=== PATIENT | male | born 1935 | race Caucasian/White ===

== ENCOUNTER 2017-07-30 11:52 | Inpatient (IN) | payer OTHER, MEDICARE ==
[~2017-07-30] VITALS: Ht 162.6 cm; Wt 84.3 kg
[2017-07-30] VITALS (7 sets, daily range): BP systolic 144–161; BP diastolic 59–70; PULSE 44–53; RESP 16–22; TEMP 94.8–96.3; O2SAT 99–100
[2017-07-30] MEDS ORDERED: ONDANSETRON HCL 4 MG/2 ML VIAL ONE (11:55)
[2017-07-30] MEDS ORDERED: PROPOFOL 1000 MG/100 ML INJ 100 ML ONE (12:04)
[2017-07-30 12:13] LABS: AUTOMATED NEUTROPHIL # 4.8 TH/MM3 (1.8-7.7); BASOPHIL % 0.3 % (0.0-2.0); EOSINOPHIL # 0.2 TH/MM3 (0-0.4); EOSINOPHIL % 2.5 % (0.0-4.0); HEMATOCRIT 23.9 % (39.0-51.0); HEMOGLOBIN 8.1 GM/DL (13.0-17.0); LYMPH % 21.1 % (9.0-44.0); LYMPHOCYTE # 1.5 TH/MM3 (1.0-4.8); MEAN CELL VOLUME 90.2 FL (80.0-100.0); MEAN CORPUSCULAR HEMOGLOBIN 30.5 PG (27.0-34.0); MEAN CORPUSCULAR HGB CONC 33.8 % (32.0-36.0); MEAN PLATELET VOLUME 8.8 FL (7.0-11.0); MONOCYTE # 0.6 TH/MM3 (0-0.9); NEUT % 68.1 % (16.0-70.0); PLATELET COUNT 131 TH/MM3 (150-450); RED BLOOD COUNT 2.65 MIL/MM3 (4.50-5.90); RED CELL DISTRIBUTION WIDTH 23.9 % (11.6-17.2)
--- NOTE | 2017-07-30 12:19 | RADRPT ---
EXAM DATE/TIME: 07/30/2017 11:53 [facility] COMPARISON: No previous studies available for comparison. INDICATIONS : Post intubation. Post fall. MEDICAL HISTORY : Unobtainable. SURGICAL HISTORY : Unobtainable. ENCOUNTER: Initial ACUITY: 1 day PAIN SCORE: Non-responsive. LOCATION: Bilateral chest FINDINGS: A single view of the chest demonstrates the endotracheal tube is in good position.. The cardiomedias tinal contours are unremarkable. Osseous structures are intact. CONCLUSION: ET tube in good position. Lungs are grossly clear. Polo Omer MD on July 30, 2017 at 12:17 Board Certified Radiologist. This report was verified electronically.
[2017-07-30 12:24] LABS: PROTHROMBIN TIME - PATIENT 10.1 SEC (9.8-11.6)
--- NOTE | 2017-07-30 12:33 | RADRPT ---
EXAM DATE/TIME: 07/30/2017 12:17 [facility] COMPARISON: No previous studies available for comparison. INDICATIONS : Trauma alert, patient fell off ladder, struck of head RADIATION DOSE: 57 CTDIvol (mGy) MEDICAL HISTORY : Non-responsive. SURGICAL HISTORY : Non-responsive. ENCOUNTER: Initial ACUITY: 1 day PAIN SCALE: Non-responsive LOCATION: Right cranial TECHNIQUE: Multiple contiguous axial images were obtained of the head. Using automated exposure control and adj ustment of the mA and/or kV according to patient size, radiation dose was kept as low as reasonably a chievable to obtain optimal diagnostic quality images. DICOM format image data is available electro nically for review and comparison. FINDINGS: CEREBRUM: There is a large left-sided extra-axial hemorrhagic collection presumably subdural. In the right mitchel etal region and measures up to 8 mm across. This is subarachnoid hemorrhage along both temporal tips. There is some hemorrhage along the tentorium on the right. At this point there is no obvious shift o f the third ventricle. Small amount of fracture or hemorrhage in the right temporal region POSTERIOR FOSSA: Small amount of hemorrhage anterior to the shanae . The cerebellum and brainstem are intact. The 4th ventricle is midline. The cerebellopontine angle is unremarkable. EXTRACRANIAL: The visualized portion of the orbits is intact. SKULL: The calvaria is intact. No evidence of skull fracture. CONCLUSION: Extra axial hemorrhage on the left beginning along the temporal tip extending over the high convexiti es of the parietal region where it measures up to 8 mm across. Subarachnoid hemorrhage both temporal tips. Small subdural on the right along the temporal region 3-4 mm across. Polo Omer MD on July 30, 2017 at 12:28 Board Certified Radiologist. This report was verified electronically.
--- NOTE | 2017-07-30 12:43 | RADRPT ---
EXAM DATE/TIME: 07/30/2017 12:17 [facility] COMPARISON: No previous studies available for comparison. INDICATIONS : Trauma alert, patient fell off ladder RADIATION DOSE: 23.01 CTDIvol (mGy) MEDICAL HISTORY : Non-responsive. SURGICAL HISTORY : Non-responsive. ENCOUNTER: Initial ACUITY: 1 day PAIN SCALE: Non-responsive LOCATION: neck TECHNIQUE: Volumetric scanning of the cervical spine was performed. Multiplanar reconstructions in the sagittal, coronal and oblique axial planes were performed. Using automated exposure control and adjustment o f the mA and/or kV according to patient size, radiation dose was kept as low as reasonably achievable to obtain optimal diagnostic quality images. DICOM format image data is available electronically f or review and comparison. FINDINGS: Patient intubated. Alignment anatomic. Degenerative changes are present at C1-C2 without fracture. C2-C3: Mild facet disease bilaterally worse on the right without fracture spinal stenosis. C3-C4: Uncinate ridging the bilateral neural foramina encroachment and mild spinal stenosis. C4-C5: Uncinate ridging with bilateral from encroachment worse on the right than the left. Spinal stenosis is mild C5-C6: Uncinate ridging and bilateral from encroachment worse on the right. Stenosis is mild. C6-C7: Balance the ridging. Neural foramen adequate. C7-T1: The bony spinal canal is normal in size. No evidence of disc bulge or herniation. The neural forami na are bilaterally patent. CONCLUSION: 1. Negative for fracture. 2. Degenerative changes consisting of uncinate ridging with neural foramen encroachment without radio graphically significant spinal stenosis. 3. Bilateral moderate sized pleural effusions seen on the lower slices through the upper lungs lungs. Angel Brown MD FACR on July 30, 2017 at 12:39 Board Certified Radiologist. This report was verified electronically.
--- NOTE | 2017-07-30 12:44 | HHI.HP ---
[facility] Service Critical Care Medicine Primary Care Physician Admission Diagnosis fall, altered mental status, head bleed, hypertensive emergency Diagnosis: Chief Complaint: Fall from ladder Travel History International Travel<30 Days: No Contact w/Intl Traveler <30 Da: No Traveled to Known Affected Are: No History of Present Illness This is an 82-year-old gentleman who fell backwards off of a ladder approximately 10 feet. He underwent a brief round of CPR but was found to be spontaneously breathing so it was stopped patient was brought in the trauma bay hypertensive and confused he was intubated in the trauma bay. He had unequal pupils and a coffee-ground emesis prior to intubation. He was upgraded to a level I trauma alert and full trauma workup showed a right subarachnoid hemorrhage as well as subdural hematoma. He was given 2 units of platelets that for his platelet insufficiency due to Plavix Review of Systems ROS Limitations: Intubated, Altered Mental Status Past Family Social History Allergies: Coded Allergies: No Allergy Information Available (Unverified , 07/30/17) Past Medical History Unobtainable due to the patient's condition Past Surgical History Unobtainable due to the patient's condition Reported Medications Patient has a list in his wallet which will be included in the medical reconciliation, this includes Plavix multiple cardiac medications as well as diuretics Family History Unobtainable due to the patient's condition Social History Unobtainable due to the patient's condition Physical Exam Physical Exam GENERAL: Intubated and sedated SKIN: Warm/dry. HEAD: Atraumatic. Normocephalic. EYES: Pupils unequal, right pupil 2 mm left pupil 3 mm reactive to light. Subconjunctival hemorrhage on the right side. No scleral icterus. No injection or drainage. ENT: No nasal bleeding or discharge. Mucous membranes pink and moist. NECK: Trachea midline. No JVD. CARDIOVASCULAR: Regular rate and rhythm. RESPIRATORY: Clear to auscultation. Breath sounds equal bilaterally. GASTROINTESTINAL: Abdomen soft, non-tender, nondistended. MUSCULOSKELETAL: No obvious deformities. No clubbing. No cyanosis. No edema. NEUROLOGICAL: GCS of 12. No focal neurologic deficits, cranial nerves II through XII appear grossly intact prior to intubation. I arrived after intubation, however. PSYCHIATRIC: Unable to assess. Laboratory Laboratory Tests Test 07/30/17 11:56 White Blood Count 7.0 Red Blood Count 2.65 Hemoglobin 8.1 Bedside Hemoglobin 7.5 Hematocrit 23.9 Bedside Hematocrit 22.0 Mean Corpuscular Volume 90.2 Mean Corpuscular Hemoglobin 30.5 Mean Corpuscular Hemoglobin Concent 33.8 Red Cell Distribution Width 23.9 Platelet Count 131 Mean Platelet Volume 8.8 Neutrophils (%) (Auto) 68.1 Lymphocytes (%) (Auto) 21.1 Monocytes (%) (Auto) 8.0 Eosinophils (%) (Auto) 2.5 Basophils (%) (Auto) 0.3 Neutrophils # (Auto) 4.8 Lymphocytes # (Auto) 1.5 Monocytes # (Auto) 0.6 Eosinophils # (Auto) 0.2 Basophils # (Auto) 0.0 CBC Comment AUTO DIFF Prothrombin Time 10.1 Prothromb Time International Ratio 1.0 Activated Partial Thromboplast Time 22.5 Bedside Sodium 146 Bedside Potassium 4.6 Bedside Chloride 113 Bedside Blood Urea Nitrogen 35 Bedside Creatinine 1.5 Bedside Glucose 148 Result Diagram: 07/30/17 1156 Caprini VTE Risk Assessment Caprini VTE Risk Assessment: Mod/High Risk (score >= 2) VTE Pharm Contraindication: Hemorrhage Caprini Risk Assessment Model Point Value = 1 Point Value = 2 Point Value = 3 Point Value = 5 Age 41-60 Minor surgery BMI > 25 kg/m2 Swollen legs Varicose veins or History of unexplained or recurrent spontaneous Oral contraceptives or hormone replacement Sepsis (< 1 month) Serious lung disease, including pneumonia (< 1 month) Abnormal pulmonary function Acute myocardial infarction Congestive heart failure (< 1 month) History of inflammatory bowel disease Medical patient at bed rest Age 61-74 Arthroscopic surgery Major open surgery (> 45 min) Laparoscopic surgery (> 45 min) Malignancy Confined to bed (> 72 hours) Immobilizing plaster cast Central venous access Age >= 75 History of VTE Family history of VTE Factor V Leiden Prothrombin [id number] Lupus anticoagulant Anticardiolipin antibodies Elevated serum homocysteine Heparin-induced thrombocytopenia Other congenital or acquired thrombophilia Stroke (< 1 month) Elective arthroplasty Hip, pelvis, or leg fracture Acute spinal cord injury (< 1 month) Prophylaxis Regimen Total Risk Factor Score Risk Level Prophylaxis Regimen 0-1 Low Early ambulation 2 Moderate Order ONE of the following: *Sequential Compression Device (SCD) *Heparin 5000 units SQ BID 3-4 Higher Order ONE of the following medications: *Heparin 5000 units SQ TID *Enoxaparin/Lovenox 40 mg SQ daily (WT < 150 kg, CrCl > 30 mL/min) *Enoxaparin/Lovenox 30 mg SQ daily (WT < 150 kg, CrCl > 10-29 mL/min) *Enoxaparin/Lovenox 30 mg SQ BID (WT < 150 kg, CrCl > 30 mL/min) AND/OR *Sequential Compression Device (SCD) 5 or more Highest Order ONE of the following medications: *Heparin 5000 units SQ TID (Preferred with Epidurals) *Enoxaparin/Lovenox 40 mg SQ daily (WT < 150 kg, CrCl > 30 mL/min) *Enoxaparin/Lovenox 30 mg SQ daily (WT < 150 kg, CrCl > 10-29 mL/min) *Enoxaparin/Lovenox 30 mg SQ BID (WT < 150 kg, CrCl > 30 mL/min) AND *Sequential Compression Device (SCD) Assessment and Plan Assessment and Plan Admit to trauma ICU for traumatic brain injury following a fall from height - Serial neuro exams - Neurosurgery consult - Transfuse 2 units platelets for dysfunction secondary to Plavix -Patient is at higher risk for aspiration pneumonitis and pneumonia due to emesis and likely aspiration in the trauma bay - Repeat head CT in AM, sooner if neurologic status deteriorates Patient remains critically ill with traumatic brain injury and respiratory failure Total critical care time in evaluation and management of this critically ill trauma activation was 75 minutes Reese Trinidad MD Jul 30, 2017 12:44
[2017-07-30] MEDS ORDERED: CHLORHEXIDINE GLUCONATE 2 % 1 PACK (2 CLOTHS) TOP PRN (12:45)
[2017-07-30] MEDS ORDERED: MISCELLANEOUS NURSING INFORMATION XX SCH (12:45)
[2017-07-30] MEDS ORDERED: ONDANSETRON HCL 4 MG/2 ML VIAL IV PUSH PRN (12:45)
[2017-07-30] MEDS ORDERED: MAGNESIUM HYDROXIDE SUSP 30 ML CUP PO PRN (12:45)
[2017-07-30] MEDS: PROPOFOL 1000 MG/100 ML IV PRN ×4 (12:45→23:34)
--- NOTE | 2017-07-30 12:47 | PD.CONS ---
[facility] Service Neurosurgery Consult Requested By Trauma surgeon Reason for Consult Trauma alert. Traumatic brain injury Primary Care Physician History of Present Illness This is an 82-year-old gentleman who fell backwards off of a ladder approximately 10 feet. He underwent a brief round of CPR but was found to be spontaneously breathing so it was stopped patient was brought in the trauma bay hypertensive and confused he was intubated in the trauma bay. No seizure activity reported. No tongue biting. No incontinence of stool or urine. No tonic-clonic movements. He had unequal pupils and a coffee-ground emesis prior to intubation. He was upgraded to a level I trauma alert. He was resuscitated according to the ATLS protocol and full trauma workup was carried down. He was found to have right subarachnoid hemorrhage as well as subdural hematoma. He was given 2 units of platelets that for his platelet insufficiency due to Plavix. He was moving his extremities. Neurosurgical consultation was requested Review of Systems Unknown and unobtainable due to the patient's condition Past Family Social History Allergies: Coded Allergies: No Allergy Information Available (Unverified , 07/30/17) Past Medical History Unknown and unobtainable due to the patient's condition Past Surgical History Unknown and unobtainable due to the patient's condition Reported Medications Unknown and unobtainable due to the patient's condition Active Ordered Medications Current Medications Ondansetron HCl (Zofran Inj) 4 mg STK-MED ONCE .ROUTE ; Start 07/30/17 at 11:55; Stop 07/30/17 at 11:56; Status DC Propofol 100 ml @ As Directed STK-MED ONCE .ROUTE ; Start 07/30/17 at 12:04; Stop 07/30/17 at 12:05; Status DC Nicardipine HCl (Cardene Inj) 25 mg STK-MED ONCE .ROUTE ; Start 07/30/17 at 12:08 ; Stop 07/30/17 at 12:09; Status DC Sodium Chloride 1,000 ml @ 125 mls/hr Q8H IV Last administered on 07/31/17at 05: 24; Start 07/30/17 at 12:31 Sodium Chloride (NS Flush) 2 ml UNSCH PRN IV FLUSH FLUSH AFTER USING IV ACCESS ; Start 07/30/17 at 12:45 Ondansetron HCl (Zofran Inj) 4 mg Q6H PRN IV PUSH NAUSEA OR VOMITING; Start 07/30/17 at 12:45 Multivitamins 10 ml/Thiamine HCl 100 mg/Folic Acid 1 mg/Sodium Chloride 511.2 ml @ 125 mls/hr Q24H IV Last administered on 07/31/17at 13:15; Start 07/30/17 at 15:00; Stop 08/01/17 at 19:06 Docusate Sodium (Colace) 100 mg BID PO Last administered on 07/31/17at 07:42; Start 07/30/17 at 21:00 Magnesium Hydroxide (Milk Of Magnesia Liq) 30 ml Q6H PRN PO CONSTIPATION; Start 07/30/17 at 12:45 Miscellaneous Information 1 [id number] XX ; Start 07/30/17 at 12:45 Chlorhexidine Gluconate (Chlorhexidine 2% Cloth) 3 pack Taper DAILY@04 TOP ; Start 07/31/17 at 04:00; Stop 07/27/18 at 03:59 Chlorhexidine Gluconate (Chlorhexidine 2% Cloth) 3 pack UNSCH PRN TOP HYGIENIC CARE; Start 07/30/17 at 12:45 Propofol 100 ml @ 0 mls/hr TITRATE PRN IV SEDATION; Start 07/30/17 at 13:00; Stop 07/30/17 at 13:30; Status DC Chlorhexidine Gluconate (Peridex 0.12% Liq) 15 ml BID@08,20 MT Last administered on 07/31/17at 07:43; Start 07/30/17 at 20:00 Propofol 100 ml @ 0 mls/hr TITRATE PRN IV SEDATION; Start 07/30/17 at 13:00; Stop 07/30/17 at 13:00; Status DC Fentanyl Citrate 250 ml TITRATE PRN IV SEDATION; Start 07/30/17 at 13:00; Stop 07/30/17 at 13:00; Status DC Fentanyl Citrate 250 ml TITRATE PRN IV SEDATION; Start 07/30/17 at 13:00; Stop 07/30/17 at 13:30; Status DC Albuterol/ Ipratropium (Duoneb Neb) 1 ampule Q6HR NEB NEB Last administered on 07/31/17at 08:53; Start 07/30/17 at 16:00 Diphtheria/ Tetanus/Acell Pertussis (Boostrix Inj) 0.5 ml STK-MED ONCE IM ; Start 07/30/17 at 12:58; Stop 07/30/17 at 12:59; Status DC Etomidate (Amidate Inj) 20 mg STK-MED ONCE .ROUTE ; Start 07/30/17 at 13:01; Stop 07/30/17 at 13:02; Status DC Succinylcholine Chloride (Quelicin Inj) 200 mg STK-MED ONCE .ROUTE ; Start at 13:01; Stop 07/30/17 at 13:02; Status DC Fentanyl Citrate 250 ml @ 5 mls/hr TITRATE PRN IV Sedation Last administered on 07/31/17at 12:23; Start 07/30/17 at 13:30 Propofol 100 ml @ 2.64 mls/hr TITRATE PRN IV SEDATION Last administered on 07/31at 14:23; Start 07/30/17 at 13:30 Famotidine (Pepcid) 10 mg BID PO Last administered on 07/31/17 07:42; Start 07/30/17 at 21:00 Nicardipine HCl 25 mg/Sodium Chloride 250 ml @ 50 mls/hr TITRATE PRN IV Blood pressure management Last administered on 07/31/17at 11:00; Start 07/30/17 at 16:15 Spironolactone (Aldactone) 25 mg DAILY PO Last administered on 07/31/17at 07:42; Start 07/31/17 at 09:00 Pravastatin Sodium (Pravachol) 40 mg DAILY PO Last administered on 07/31/17at 07: 42; Start 07/31/17 at 09:00 Metoprolol Tartrate (Lopressor) 25 mg Q12HR PO ; Start 07/31/17 at 09:00 Hydralazine HCl (Apresoline) 25 mg Q12HR PO Last administered on 07/31/17at 07:42 ; Start 07/31/17 at 09:00; Stop 07/31/17 at 09:00; Status DC Furosemide (Lasix Inj) 40 mg BID@,18 IV PUSH Last administered on 3/4/18at 07 :44; Start 07/31/17 at 09:00 Dextrose (D50w (Vial) Inj) 50 ml UNSCH PRN IV PUSH HYPOGLYCEMIA-SEE COMMENTS; Start 07/31/17 at 07:45 Glucagon (Glucagon Inj) 1 mg UNSCH PRN OTHER HYPOGLYCEMIA-SEE COMMENTS; Start 07/31/17 at 07:45 Insulin Aspart (NovoLOG SUPPLEMENTAL SCALE) 1 Q6H SQ ; Start 07/31/17 at 07:45 Sodium Chloride 250 ml @ 15 mls/hr ONCE ONCE IV Last administered on at 10:55; Start 07/31/17 at 08:15; Stop 08/01/17 at 00:54 Terazosin HCl (Hytrin) 10 mg HS PO ; Start 07/31/17 at 21:00 Hydralazine HCl (Apresoline) 100 mg Q12HR PO Last administered on 07/31/17at 09: 25; Start 07/31/17 at 09:00 Family History Unknown and unobtainable due to the patient's condition Social History Unknown and unobtainable due to the patient's condition Physical Exam Physical Exam The patient is intubated and sedated. Hematoma occiput. Withdraws to painful stimulii with all 4 extremities. Cranial Nerves: Pupils equal, round, reactive to light. Eyes appear conjugated. There was no nystagmus, no papilledema. Face musculature appeared symmetrical at rest. Face sensation, olfaction, visual moreno, and hearing cannot be adequately assessed due to his neurological condition. The patient has a corneal reflex. He has a gag reflex. The sternocleidomastoid and trapezius are symmetrical. Cervical Spine: His neck is soft, supple, without nuchal rigidity. Motor: His muscle tone and bulk are normal. He moves Withdrawing all 4 extremities symmetrically. Reflexes: Deep tendon reflexes are 1+ and symmetrical in the biceps, triceps, and brachioradialis, bilaterally, in the upper extremities. In the lower extremities, the patellar and ankles are 1+, bilaterally. There is a bilateral plantar flexion response. There is no clonus or other abnormal reflexes noted. Sensory: On examination there is response to painful stimuli, Withdrawing with both upper and lower extremities. Cerebellar: Examination cannot be adequately assessed due to the patient's neurological condition. CARDIOVASCULAR: Regular rate and rhythm. No obvious murmurs to auscultation. No chest tenderness to palpation. RESPIRATORY: No obvious rhonchi or wheezing. Clear to auscultation. Breath sounds equal bilaterally. GASTROINTESTINAL: Abdomen soft, non-tender, nondistended. BS normal. MUSCULOSKELETAL: Extremities without clubbing, cyanosis, or edema. No obvious deformities. Laboratory Laboratory Tests Test 07/30/17 11:56 White Blood Count 7.0 Red Blood Count 2.65 Hemoglobin 8.1 Bedside Hemoglobin 7.5 Hematocrit 23.9 Bedside Hematocrit 22.0 Mean Corpuscular Volume 90.2 Mean Corpuscular Hemoglobin 30.5 Mean Corpuscular Hemoglobin Concent 33.8 Red Cell Distribution Width 23.9 Platelet Count 131 Mean Platelet Volume 8.8 Neutrophils (%) (Auto) 68.1 Lymphocytes (%) (Auto) 21.1 Monocytes (%) (Auto) 8.0 Eosinophils (%) (Auto) 2.5 Basophils (%) (Auto) 0.3 Neutrophils # (Auto) 4.8 Lymphocytes # (Auto) 1.5 Monocytes # (Auto) 0.6 Eosinophils # (Auto) 0.2 Basophils # (Auto) 0.0 CBC Comment AUTO DIFF Prothrombin Time 10.1 Prothromb Time International Ratio 1.0 Activated Partial Thromboplast Time 22.5 Bedside Sodium 146 Bedside Potassium 4.6 Bedside Chloride 113 Bedside Blood Urea Nitrogen 35 Bedside Creatinine 1.5 Bedside Glucose 148 Result Diagram: 07/30/17 1156 Imaging Last [address] 07/30/17 1202 Signed Impressions: Service Date/Time: Sunday, July 30, 2017 12:17 - CONCLUSION: Extra axial hemorrhage on the left beginning along the temporal tip extending over the high convexities of the parietal region where it measures up to 8 mm across. Subarachnoid hemorrhage both temporal tips. Small subdural on the right along the temporal region 3-4 mm across. Polo Omer MD Chest X-Ray 07/30/17 1202 Signed Impressions: Service Date/Time: Sunday, July 30, 2017 11:53 - CONCLUSION: ET tube in good position. Lungs are grossly clear. Polo Omer MD Assessment and Plan Assessment and Plan Caprini Risk Assessment Model Point Value = 1 Point Value = 2 Point Value = 3 Point Value = 5 Age 41-60 Minor surgery BMI > 25 kg/m2 Swollen legs Varicose veins or History of unexplained or recurrent spontaneous Oral contraceptives or hormone replacement Sepsis (< 1 month) Serious lung disease, including pneumonia (< 1 month) Abnormal pulmonary function Acute myocardial infarction Congestive heart failure (< 1 month) History of inflammatory bowel disease Medical patient at bed rest Age 61-74 Arthroscopic surgery Major open surgery (> 45 min) Laparoscopic surgery (> 45 min) Malignancy Confined to bed (> 72 hours) Immobilizing plaster cast Central venous access Age >= 75 History of VTE Family history of VTE Factor V Leiden Prothrombin [id number] Lupus anticoagulant Anticardiolipin antibodies Elevated serum homocysteine Heparin-induced thrombocytopenia Other congenital or acquired thrombophilia Stroke (< 1 month) Elective arthroplasty Hip, pelvis, or leg fracture Acute spinal cord injury (< 1 month) Prophylaxis Regimen Total Risk Factor Score Risk Level Prophylaxis Regimen 0-1 Low Early ambulation 2 Moderate Order ONE of the following: *Sequential Compression Device (SCD) *Heparin 5000 units SQ BID 3-4 Higher Order ONE of the following medications: *Heparin 5000 units SQ TID *Enoxaparin/Lovenox 40 mg SQ daily (WT < 150 kg, CrCl > 30 mL/min) *Enoxaparin/Lovenox 30 mg SQ daily (WT < 150 kg, CrCl > 10-29 mL/min) *Enoxaparin/Lovenox 30 mg SQ BID (WT < 150 kg, CrCl > 30 mL/min) AND/OR *Sequential Compression Device (SCD) 5 or more Highest Order ONE of the following medications: *Heparin 5000 units SQ TID (Preferred with Epidurals) *Enoxaparin/Lovenox 40 mg SQ daily (WT < 150 kg, CrCl > 30 mL/min) *Enoxaparin/Lovenox 30 mg SQ daily (WT < 150 kg, CrCl > 10-29 mL/min) *Enoxaparin/Lovenox 30 mg SQ BID (WT < 150 kg, CrCl > 30 mL/min) AND *Sequential Compression Device (SCD) Attending Statement Head injury with subdural hematoma. traumatic brain injury. I reviewed his clinical and radiological studies Head CT 07/30/17 1202 Signed Impressions: Service Date/Time: Sunday, July 30, 2017 12:17 - CONCLUSION: Extra axial hemorrhage on the left beginning along the temporal tip extending over the high convexities of the parietal region where it measures up to 8 mm across. Subarachnoid hemorrhage both temporal tips. Small subdural on the right along the temporal region 3-4 mm across. Polo Omer MD Chest X-Ray 07/30/17 1202 Signed Impressions: Service Date/Time: Sunday, July 30, 2017 11:53 - CONCLUSION: ET tube in good position. Lungs are grossly clear. Polo Omer MD Neuro checks in a serial fashion. Placement of ICP monitor is indicated as recommended by the [employer]. We have discussed the details including the [id number] details of the surgical procedure, its indications, alternatives, risks, and potential complications. Risks and potential complications include, but are not limited to, infection, blood loss, CSF leak, partial or complete loss of sight in one or both eyes, paresis, paralysis, permanent pain or difficulty swallowing, loss of bowel or bladder function, complications from anesthesia, blood clot, stroke, myocardial infarction, or even . He is at risk of deterioration. If the hemorrhage gets significantly worse she may need to undergo a craniotomy with evacuation of the hematoma Pulmonary. FUll mechanical ventilation in Assist control mode of ventilation aggressive pulmonary toilette, nasotracheal suction, and breathing treatments with nebulizers. Daily PT and OT Renal. monitor closely urine output, BUN and creatinine Endocrine.Monitor serial Acu checks and SSI as needed in detail ID monitor for signs of infection Protonix for stress ulcer prophylaxis Gilbert hose and SCD's for DVT prophylaxis Further recommendations will be provided depending on the patient's clinical evaluation and follow up studies Les Horne MD Jul 30, 2017 12:47
[2017-07-30 12:51] LABS: KERATOCYTES OCC (NORMAL); OVALOCYTES 1+ (NORMAL); TEARDROP RBCS 1+ (NORMAL)
[2017-07-30 12:52] LABS: ACANTHOCYTES 1+ (NORMAL)
--- NOTE | 2017-07-30 12:52 | PD ---
HPI Chief Complaint: Trauma (Alert) Time Seen by Provider: 12:01 Travel History International Travel<30 days: No Contact w/Intl Traveler<30days: No Traveled to known affect area: No History of Present Illness HPI Patient was brought in as a trauma alert by ground. As per the paramedics patient is 86 years old male who was up on a ladder less than 10 feet high with his son when for unknown reason he fell backwards and hit his head. He was unconscious and his son thought that patient was not breathing and give him a CPR for about 10 seconds after which patient started to come around but confused. When EMS arrived patient was GCS of 13. Blood pressure was more than 200. On route patient continued to get worse and GCS was 12 as per EMS upon arrival. Blood pressure was 220 systolic. Patient is on Plavix as per the paramedics. Patient was in no condition to give any meaningful history. He kept saying that he was nauseous and wanted to vomit. Patient was brought in boarded and collared. Soon after arrival patient vomited coffee-ground emesis all over the place. Decision was made to intubate the patient immediately. [facility] Past Medical History Narrative Medical Unknown Allergies-Medications (Allergen,Severity, Reaction): Coded Allergies: No Allergy Information Available (Unverified , 07/30/17) Comments Unknown Reported Meds & Prescriptions Reported Meds & Active Scripts Active Reported Slow Iron ER (Ferrous Sulfate) 160 Mg Maria Fernanda Mg DAILY Hydralazine HCl 25 Mg Tablet 25 Mg PO BID Aldactone (Spironolactone) 25 Mg Tab 25 Mg PO DAILY Plavix (Clopidogrel Bisulfate) 75 Mg Tab 75 Mg PO DAILY Terazosin (Terazosin HCl) 10 Mg Cap 10 Mg PO HS Simvastatin 20 Mg Tab 20 Mg PO DAILY Primidone 50 Mg Tab 200 Mg PO BID Omeprazole 20 Mg Tab 20 Mg PO DAILY Allopurinol 100 Mg Tab 100 Mg PO BID Metoprolol Tartrate 50 Mg Tab 50 Mg PO BID Losartan (Losartan Potassium) 25 Mg Tab 25 Mg PO DAILY Glipizide 5 Mg Tab 5 Mg PO DAILY Take 30 minutes before a meal Furosemide 80 Mg Tab 80 Mg PO DAILY Finasteride 5 Mg Tab 5 Mg DAILY Do not crush. Aspirin 325 Mg Tab 325 Mg PO DAILY Narrative Medication Unknown Review of Systems ROS Limitations: Altered Mental Status Except as stated in HPI: all other systems reviewed are Neg Physical Exam Narrative GENERAL: Confused, altered mental status, boarded and collared, significant distress, anxious SKIN: Focused skin assessment warm/dry. HEAD: Atraumatic. Normocephalic. EYES: Pupils unequal, right pupil 2 mm left pupil 3 mm reactive to light. Patient has subconjunctival hemorrhage on the right side. No scleral icterus. No injection or drainage. ENT: No nasal bleeding or discharge. Mucous membranes pink and moist. NECK: Trachea midline. No JVD. CARDIOVASCULAR: Regular rate and rhythm. No murmur appreciated. RESPIRATORY: No accessory muscle use. Clear to auscultation. Breath sounds equal bilaterally. GASTROINTESTINAL: Abdomen soft, non-tender, nondistended. Hepatic and splenic margins not palpable. MUSCULOSKELETAL: No obvious deformities. No clubbing. No cyanosis. No edema. NEUROLOGICAL: GCS of 12. No obvious cranial nerve deficits. Motor grossly within normal limits. Normal speech. PSYCHIATRIC: Anxious. Data Data Last Documented VS Vital Signs Date Time Temp Pulse Resp B/P (MAP) Pulse Ox O2 Delivery O2 Flow Rate FiO2 07/30/17 12:15 100 100 Orders Orders Ondansetron Inj (Zofran Inj) (07/30/17 11:55) I-Stat Profile (07/30/17 12:02) Complete Blood Count With Diff (07/30/17 12:02) Prothrombin Time / Inr (Pt) (07/30/17 12:02) Act Partial Throm Time (Ptt) (07/30/17 12:02) Type And Screen (07/30/17 12:02) Chest, Single Ap (07/30/17 12:02) Ct Brain W/O Iv Contrast(Rout) (07/30/17 12:02) Ct Cerv Spine W/O Contrast (07/30/17 12:02) Iv Access Insert/Monitor (07/30/17 12:02) Ecg Monitoring (07/30/17 12:02) Oximetry (07/30/17 12:02) Oxygen Administration (07/30/17 12:02) Propofol 1000 Mg/100 Ml Inj (Diprivan 10 (07/30/17 12:04) Nicardipine Inj (Cardene Inj) (07/30/17 12:08) Labs Laboratory Tests Test 07/30/17 11:56 White Blood Count 7.0 TH/MM3 Red Blood Count 2.65 MIL/MM3 Hemoglobin 8.1 GM/DL Bedside Hemoglobin 7.5 G/DL Hematocrit 23.9 % Bedside Hematocrit 22.0 % Mean Corpuscular Volume 90.2 FL Mean Corpuscular Hemoglobin 30.5 PG Mean Corpuscular Hemoglobin Concent 33.8 % Red Cell Distribution Width 23.9 % Platelet Count 131 TH/MM3 Mean Platelet Volume 8.8 FL Neutrophils (%) (Auto) 68.1 % Lymphocytes (%) (Auto) 21.1 % Monocytes (%) (Auto) 8.0 % Eosinophils (%) (Auto) 2.5 % Basophils (%) (Auto) 0.3 % Neutrophils # (Auto) 4.8 TH/MM3 Lymphocytes # (Auto) 1.5 TH/MM3 Monocytes # (Auto) 0.6 TH/MM3 Eosinophils # (Auto) 0.2 TH/MM3 Basophils # (Auto) 0.0 TH/MM3 CBC Comment AUTO DIFF Differential Comment AUTO DIFF CONFIRMED Platelet Estimate LOW Platelet Morphology Comment NORMAL Tear Drop Cells 1+ Ovalocytes 1+ Acanthocytes 1+ Keratocytes OCC Prothrombin Time 10.1 SEC Prothromb Time International Ratio 1.0 RATIO Activated Partial Thromboplast Time 22.5 SEC Bedside Sodium 146 MMOL/L Bedside Potassium 4.6 MMOL/L Bedside Chloride 113 MMOL/L Bedside Blood Urea Nitrogen 35 MG/DL Bedside Creatinine 1.5 MG/DL Bedside Glucose 148 MG/DL [facility] Medical Screen Exam Complete: Yes Emergency Medical Condition: Yes Medical Record Reviewed: Yes Differential Diagnosis Intracranial bleed, skull fracture, cervical spine fracture Narrative Course 12:48 PM patient was intubated soon after arrival given his declining GCS, hypertension and possibility of intracranial bleed. He was given tetanus and intubated by me with RSI. Please refer to my procedure note. Overall patient tolerated it well. Chest x-ray was done that confirmed good tube position. Blood pressure continued to be above 200 and he was put on Cardene drip. Patient was taken emergently to CT. CT shows intracranial bleed as per the radiology report. Patient will be going to the ICU under the trauma surgeon. I put a call out for the neurosurgeon. Critical Care Narrative Aggregate critical care time was 30 minutes. Time to perform other separately billable procedures was not included in the critical care time. My time did not include minutes spent treating any other patients simultaneously or on activities that did not directly contribute to the patient's treatment. The services I provided to this patient were to treat and/or prevent clinically significant deterioration that could result in: Intracranial bleed, altered mental status, respiratory failure, hypertensive crisis, Susie davies I provided critical care services requiring my management, as noted below: Chart data review, documentation time, medication orders and management, vital sign assessments/reviewing monitor data, ordering and reviewing lab tests, ordering and interpreting/reviewing x-rays and diagnostic studies, care of the patient and discussion of the patient with the admitting physicians. Procedures Procedure Narrative After the risks and benefits were discussed the following procedure was performed: INTUBATION: The patient was put in optimal position for the procedure. Rapid sequence intubation was initiated by me using 100 milligrams of etomidate IV and 20 milligrams of succinylcholine IV. The patient was intubated with a 7.5 cuffed endotracheal tube. Tube placement was confirmed by visualization of the tube and balloon passing through the cords, capnometry and subsequent chest x-ray. Breath sounds were equal and well aerated bilaterally postintubation. No breath sounds over stomach. Patient tolerated procedure well. Physician Communication Dr. Trinidad Diagnosis Diagnosis: Primary Impression: Unresponsive Additional Impressions: Hypertensive emergency Intracranial bleed Respiratory failure Qualified Codes: J96.00 - Acute respiratory failure, unspecified whether with hypoxia or hypercapnia Admitting Physician Requests: Compa Cooley MD Jul 30, 2017 12:52
[2017-07-30] MEDS ORDERED: DIPHTH/TETANUS/ACEL PERTUSSIS (BOOSTER) 0.5 ML VIAL/PFS IM ONE (12:58)
[2017-07-30] MEDS: niCARdipine INJ 25 MG in SODIUM CHLOR 0.9% 250 ML INJ 240 ML IV PRN ×5 (13:00→23:27)
[2017-07-30] MEDS ORDERED: fentaNYL DRIP 250 ML IV PRN ×2 (13:00)
[2017-07-30] MEDS ORDERED: PROPOFOL 1000 MG/100 ML INJ 100 ML IV PRN ×2 (13:00)
[2017-07-30] MEDS ORDERED: ETOMIDATE 20 MG/10 ML VIAL ONE (13:01)
[2017-07-30] MEDS ORDERED: SUCCINYLCHOLINE CHLORIDE 200 MG/10 ML VIAL ONE (13:01)
[2017-07-30] MEDS: fentaNYL 2,500 MCG/NS 250 ML IV PRN (14:23)
[2017-07-30] MEDS: MULTIVITAMIN INJ 10 ML, THIAMINE INJ 100 MG, FOLIC ACID INJ 1 MG in SODIUM CHLORID 0.9%... IV SCH (15:44)
[2017-07-30] MEDS: RESP: ALBUTEROL 2.5 MG/IPRATROPIUM 0.5 MG NEB (SCH) NEB ×2 (15:59→20:27)
[2017-07-30] MEDS ORDERED: SIMV20TA PO (18:09)
[2017-07-30] MEDS ORDERED: METO50TA PO (18:09)
[2017-07-30] MEDS ORDERED: LOSA25TA PO (18:09)
[2017-07-30] MEDS ORDERED: PLAV75TA29 PO (18:09)
[2017-07-30] MEDS ORDERED: ALLO100T PO (18:09)
[2017-07-30] MEDS ORDERED: HYDR-3799 PO (18:09)
[2017-07-30] MEDS ORDERED: GLIP5TAB8 PO (18:09)
[2017-07-30] MEDS ORDERED: OMEP20TA93 PO (18:09)
[2017-07-30] MEDS ORDERED: SLOW160T10 (18:09)
[2017-07-30] MEDS ORDERED: TERA10CA3 PO (18:09)
[2017-07-30] MEDS ORDERED: SPIR25 PO (18:09)
[2017-07-30] MEDS ORDERED: FINA5TAB2 (18:09)
[2017-07-30] MEDS ORDERED: PRIM50TA5 PO (18:09)
[2017-07-30] MEDS ORDERED: ASPI-183 PO (18:09)
[2017-07-30] MEDS ORDERED: FURO80TA PO (18:09)
[2017-07-30] MEDS: SODIUM CHLOR 0.9% 1000 ML INJ 1,000 ML IV SCH ×2 (18:23→20:21)
[2017-07-30] MEDS: CHLORHEXIDINE 0.12% (ORAL KIT) 15 ML CUP MT SCH (20:00)
[2017-07-30] MEDS: FAMOTIDINE 20 MG TAB PO SCH (21:18)
[2017-07-30] MEDS: DOCUSATE SODIUM 100 MG CAP PO SCH (21:18)
[2017-07-31] VITALS (16 sets, daily range): BP systolic 119–144; BP diastolic 40–63; PULSE 50–66; RESP 12–24; TEMP 96.8–98.8; O2SAT 92–100
[2017-07-31] MEDS: PROPOFOL 1000 MG/100 ML IV PRN ×6 (01:05→23:18)
[2017-07-31] MEDS: niCARdipine INJ 25 MG in SODIUM CHLOR 0.9% 250 ML INJ 240 ML IV PRN ×8 (01:56→20:59)
[2017-07-31] MEDS: RESP: ALBUTEROL 2.5 MG/IPRATROPIUM 0.5 MG NEB (SCH) NEB ×4 (03:45→20:30)
[2017-07-31] MEDS: CHLORHEXIDINE GLUCONATE 2 % 1 PACK (2 CLOTHS) TOP SCH (04:00)
--- NOTE | 2017-07-31 05:10 | RADRPT ---
EXAM DATE/TIME: 07/31/2017 04:27 [facility] COMPARISON: CT BRAIN W/O CONTRAST, July 30, 2017, 12:17. INDICATIONS : Follow up hemorrhage. RADIATION DOSE: 69.16 CTDIvol (mGy) MEDICAL HISTORY : Cardiovascular disease. Hypertension. Diabetes mellitus type 2. SURGICAL HISTORY : None. ENCOUNTER: Subsequent ACUITY: 1 day PAIN SCALE: Non-responsive LOCATION: cranial TECHNIQUE: Multiple contiguous axial images were obtained of the head. Using automated exposure control and adj ustment of the mA and/or kV according to patient size, radiation dose was kept as low as reasonably a chievable to obtain optimal diagnostic quality images. DICOM format image data is available electro nically for review and comparison. FINDINGS: CEREBRUM: Subdural hematoma on the left side is increased in size slightly, now measuring 10 mm. This extends from low to high convexity and from frontal and occipital region. The hematoma adjacent to the left lateral petrous bone is similar in appearance. The right temporal tip hematoma has increased in size , now measuring 2.2 x 1.5 cm. Small right subdural hematoma is stable in size measuring up to 7 mm. Interval development of intraventricular blood layering in the occipital horns bilaterally. Stable a ppearance to the blood products along the tentorium. The intracranial monitoring probe is in place. The ventricles are symmetric in size. No evidence of midline shift. POSTERIOR FOSSA: The cerebellum and brainstem are intact. The 4th ventricle is midline. The cerebellopontine angle i s unremarkable. EXTRACRANIAL: The visualized portion of the orbits is intact. SKULL: Stable right scalp hematoma high convexity parietal region measuring up to 11 mm in thickness, unchan ged in size. The calvaria is intact. No evidence of skull fracture. CONCLUSION: 1. Interval increase in the size of the left subdural hematoma. Stable right subdural hematoma. 2. Increase in size of the right temporal tip hematoma. Stable size of the left temporal hematoma ad jacent to the Yogi ridge. 3. Interval development of intraventricular blood. ePpe Smalls MD on July 31, 2017 at 5:03 Board Certified Radiologist. This report was verified electronically.
[2017-07-31] MEDS: SODIUM CHLOR 0.9% 1000 ML INJ 1,000 ML IV SCH ×2 (05:24→20:31)
--- NOTE | 2017-07-31 05:30 | RADRPT ---
EXAM DATE/TIME: 07/31/2017 04:10 [facility] COMPARISON: CHEST SINGLE AP, July 30, 2017, 11:53. INDICATIONS : Follow up post trauma from falling off ladder. MEDICAL HISTORY : Unobtainable. SURGICAL HISTORY : Unobtainable. ENCOUNTER: Subsequent ACUITY: 2 days PAIN SCORE: Non-responsive. LOCATION: Bilateral chest FINDINGS: ET tube tip is well above the lorenzo. Gastric tube traverses the field of view. There are hazy opac ities in the mid and lower lungs bilaterally causing loss of delineation of both hemidiaphragms and w ith some air bronchograms seen in the left lower chest. There is partial loss of delineation of the left apical heart border. CONCLUSION: Prominent bilateral mid and lower lobe opacities suggesting a combination of consolidation and pleura l effusions. Pepe Smalls MD on July 31, 2017 at 5:28 Board Certified Radiologist. This report was verified electronically.
[2017-07-31 06:52] LABS: AUTOMATED NEUTROPHIL # 6.1 TH/MM3 (1.8-7.7); BASOPHIL % 0.3 % (0.0-2.0); EOSINOPHIL # 0.1 TH/MM3 (0-0.4); EOSINOPHIL % 1.3 % (0.0-4.0); LYMPH % 7.8 % (9.0-44.0); LYMPHOCYTE # 0.6 TH/MM3 (1.0-4.8); MEAN CELL VOLUME 90.5 FL (80.0-100.0); MEAN CORPUSCULAR HEMOGLOBIN 30.9 PG (27.0-34.0); MEAN CORPUSCULAR HGB CONC 34.1 % (32.0-36.0); MONO % 12.9 % (0.0-8.0); NEUT % 77.7 % (16.0-70.0); PLATELET COUNT 151 TH/MM3 (150-450); RED BLOOD COUNT 2.12 MIL/MM3 (4.50-5.90); RED CELL DISTRIBUTION WIDTH 24.4 % (11.6-17.2); WHITE BLOOD COUNT 7.8 TH/MM3 (4.0-11.0)
[2017-07-31 06:54] LABS: HEMOGLOBIN 6.5 GM/DL (13.0-17.0)
[2017-07-31 06:55] LABS: HEMATOCRIT 19.2 % (39.0-51.0)
[2017-07-31] MEDS: INSULIN ASPART SUPPLEMENTAL SCALE SQ SCH ×3 (07:00→19:11)
[2017-07-31 07:13] LABS: BICARBONATE 19.3 MEQ/L (21.0-32.0); CALCIUM 7.6 MG/DL (8.5-10.1)
--- NOTE | 2017-07-31 07:17 | PD.CONS ---
HPI Service Critical Care Medicine Seen 07/30/2017 Consult Requested By Trauma Service Reason for Consult Systolic Heart Failure, Pulmonary Edema Primary Care Physician Unknown History of Present Illness 82 y/o man fell from height and sustained closed head trauma including left subdural hematoma and bilateral temporal parenchymal bleedss in areas of contusion. Admission CXR is impressive for cardiomegaly and pulmonary edema. Home meds are not known at this time. Review of Systems ROS Unobtainable. Past Family Social History Allergies: Coded Allergies: No Allergy Information Available (Unverified , 07/30/17) Past Medical History Clearly in chronic poorly compensated systolic heart failure Allergies-Medications Allergies-Medications (Allergen,Severity, Reaction): Coded Allergies: No Allergy Information Available (Unverified , 07/30/17) Comments Unknown Narrative Medication Unknown ROS Review of Systems ROS Limitations: Altered Mental Status Except as stated in HPI: all other systems reviewed are Neg Physical Exam Vital Signs Vital Signs Date Time Temp Pulse Resp B/P (MAP) Pulse Ox O2 Delivery O2 Flow Rate FiO2 07/31/17 06:00 58 07/31/17 05:30 60 133/50 07/31/17 04:00 98.2 66 17 144/40 (74) 92 07/31/17 04:00 40 07/31/17 04:00 66 07/31/17 03:46 99 40 07/31/17 02:49 51 133/44 07/31/17 02:00 50 07/31/17 01:56 51 129/68 07/31/17 01:40 100 40 07/31/17 00:00 40 07/31/17 00:00 58 07/31/17 00:00 97.9 58 24 137/43 (74) 98 07/30/17 23:27 56 138/63 07/30/17 22:00 53 07/30/17 21:18 56 149/68 07/30/17 20:30 100 Mechanical Ventilator 40 07/30/17 20:30 96.1 52 22 144/59 (87) 100 07/30/17 20:30 52 07/30/17 20:30 40 07/30/17 20:27 100 40 07/30/17 19:21 49 128/60 07/30/17 18:46 51 135/63 07/30/17 17:45 54 142/55 3/3/18 17:30 55 152/55 07/30/17 17:15 55 153/66 07/30/17 17:00 47 152/63 07/30/17 16:45 48 164/73 07/30/17 16:31 44 137/65 07/30/17 16:00 44 07/30/17 16:00 100 40 07/30/17 16:00 94.8 44 16 148/67 (94) 100 07/30/17 15:45 44 157/69 07/30/17 15:30 48 154/67 07/30/17 15:15 49 151/70 07/30/17 13:45 49 131/63 07/30/17 13:15 52 141/64 07/30/17 13:00 96.3 47 22 161/70 (100) 100 07/30/17 13:00 100 AMBU 15.00 07/30/17 13:00 52 161/70 07/30/17 13:00 47 07/30/17 12:50 100 100 07/30/17 12:15 100 100 Physical Exam Gen: Intubated, unresponsive. Head: Hematoma occiput. Neck: Collar, orally intubated. Lungs: Diffuse crackles and scattered rhonchi. Heart: NL S1S2, soft systolic mur at apex. +JVD. Abdomen: Soft, large, no peritoneal irritation. Quiet. Extremities: 2+ pitting edema both legs and feet, well perfused. Neuro: Withdraws 4 limbs to stimulation. Pupils 2 mm, reactive. Breathes over vent. Cough, gag intact. Laboratory Laboratory Tests Test 07/30/17 11:56 07/30/17 14:38 07/30/17 21:46 07/30/17 23:35 White Blood Count 7.0 Red Blood Count 2.65 Hemoglobin 8.1 Bedside Hemoglobin 7.5 Hematocrit 23.9 Bedside Hematocrit 22.0 Mean Corpuscular Volume 90.2 Mean Corpuscular Hemoglobin 30.5 Mean Corpuscular Hemoglobin Concent 33.8 Red Cell Distribution Width 23.9 Platelet Count 131 Mean Platelet Volume 8.8 Neutrophils (%) (Auto) 68.1 Lymphocytes (%) (Auto) 21.1 Monocytes (%) (Auto) 8.0 Eosinophils (%) (Auto) 2.5 Basophils (%) (Auto) 0.3 Neutrophils # (Auto) 4.8 Lymphocytes # (Auto) 1.5 Monocytes # (Auto) 0.6 Eosinophils # (Auto) 0.2 Basophils # (Auto) 0.0 CBC Comment AUTO DIFF Differential Comment AUTO DIFF CONFIRMED Platelet Estimate LOW Platelet Morphology Comment NORMAL Tear Drop Cells 1+ Ovalocytes 1+ Acanthocytes 1+ Keratocytes OCC Prothrombin Time 10.1 Prothromb Time International Ratio 1.0 Activated Partial Thromboplast Time 22.5 Bedside Sodium 146 Bedside Potassium 4.6 Bedside Chloride 113 Bedside Blood Urea Nitrogen 35 Bedside Creatinine 1.5 Bedside Glucose 148 Blood Gas Puncture Site RT RADIAL Blood Gas Patient Temperature 98.6 Blood Gas HCO3 20 Blood Gas Base Excess -3.4 Blood Gas Oxygen Saturation 98 Arterial Blood pH 7.41 Arterial Blood Partial Pressure CO2 33 Arterial Blood Partial Pressure O2 253 Arterial Blood Oxygen Content 9.3 Arterial Blood Carboxyhemoglobin 1.4 Arterial Blood Methemoglobin 1.1 Blood Gas Hemoglobin 6.3 Oxygen Delivery Device VENTILATOR Blood Gas Ventilator Setting Blood Gas Inspired Oxygen 80 Platelet Function P2Y12 React Units 292 Nasal Screen MRSA (PCR) MRSA NOT DETECTED Test 07/31/17 06:00 07/31/17 06:30 Blood Gas Puncture Site ART LINE Blood Gas Patient Temperature 98.6 Blood Gas HCO3 18 Blood Gas Base Excess -6.3 Blood Gas Oxygen Saturation 89 Arterial Blood pH 7.40 Arterial Blood Partial Pressure CO2 29 Arterial Blood Partial Pressure O2 64 Arterial Blood Oxygen Content 7.5 Arterial Blood Carboxyhemoglobin 1.4 Arterial Blood Methemoglobin 1.3 Blood Gas Hemoglobin 5.9 Oxygen Delivery Device VENTILATOR Blood Gas Ventilator Setting PRVC/AC Blood Gas Inspired Oxygen 50 White Blood Count 7.8 Red Blood Count 2.12 Hemoglobin 6.5 Hematocrit 19.2 Mean Corpuscular Volume 90.5 Mean Corpuscular Hemoglobin 30.9 Mean Corpuscular Hemoglobin Concent 34.1 Red Cell Distribution Width 24.4 Platelet Count 151 Mean Platelet Volume 9.0 Neutrophils (%) (Auto) 77.7 Lymphocytes (%) (Auto) 7.8 Monocytes (%) (Auto) 12.9 Eosinophils (%) (Auto) 1.3 Basophils (%) (Auto) 0.3 Neutrophils # (Auto) 6.1 Lymphocytes # (Auto) 0.6 Monocytes # (Auto) 1.0 Eosinophils # (Auto) 0.1 Basophils # (Auto) 0.0 CBC Comment AUTO DIFF Result Diagram: 07/31/17 0630 Assessment and Plan Assessment and Plan Assessment: 1. TBI. 2. Left SDH. 3. Right temporal contusion/bleed. 4. Chronic systolic heart failure, decompensated 5. Hypertension. 6. Respiratory failure. Plan: 1. PRVC vent. 2. Lasix daily, bolus now.. 3. Add unloading agent - hydralazine may be best. 4. Hold MATTY-I for now until renal function sorts out. 5. Start low dose beta stacie. 6. Check BNP. 7. Cardiac ECHO. 8. Statin. 9. ICP monitor. Overall impression: Patient is critically ill from TBI and neurologically unstable. Care is complicated by decompensated heart failure and uncontrolled hypertension. I anticipate complications related to his cardiovascular disease irrespective of his evolving head injury. Critical care 40 mins aside from procedures. Serge Marcano MD Jul 31, 2017 07:17
[2017-07-31] MEDS: DOCUSATE SODIUM 100 MG CAP PO SCH ×2 (07:42→19:53)
[2017-07-31] MEDS: PRAVASTATIN SOD 40 MG TAB PO SCH (07:42)
[2017-07-31] MEDS: FAMOTIDINE 20 MG TAB PO SCH ×2 (07:42→19:53)
[2017-07-31] MEDS: SPIRONOLACTONE 25 MG TAB PO SCH (07:42)
[2017-07-31] MEDS: CHLORHEXIDINE 0.12% (ORAL KIT) 15 ML CUP MT SCH ×2 (07:43→20:00)
--- NOTE | 2017-07-31 07:43 | HHI.CCPN ---
Subjective Remarks/Hospital Course 82 y/o man fell from height and sustained closed head trauma including left subdural hematoma and bilateral temporal parenchymal bleeds in areas of contusion. Admission CXR is impressive for pulmonary venous congestion. Home meds are not known at this time. 07/31: Enlarging left subdural hemorrhage and enlarging parenchymal contusions/ bleeds undoubtedly exacerbated by Plavix and aspirin use. CXR demonstrates bilateral effusions but improved pulmonary venous congestion after diuretic yesterday. Unfortunately a worsening azotemia has developed indicating he may not tolerate diuresis well. Follow renal function closely. I would have predicted chronic systolic heart failure after observing his effusions and ankles but his cardiac ECHO reveals reasonable biventricular function, probably EF > 50%. This may all be primary renal disease considering his reduced GFR and chronic anemia. Objective Vital Signs Date Time Temp Pulse Resp B/P (MAP) Pulse Ox O2 Delivery O2 Flow Rate FiO2 07/31/17 06:00 58 07/31/17 05:30 133/50 07/31/17 04:15 100 100 07/31/17 04:00 98.2 17 07/30/17 20:30 Mechanical Ventilator 07/30/17 13:00 15.00 Intake and Output 07/31/17 07/31/17 08/01/17 08:00 16:00 00:00 Intake Total 1950 ml Output Total 350 ml Balance 1600 ml Result Diagram: 07/31/17 0630 07/31/17 0630 Other Results Laboratory Tests Test 07/30/17 14:38 07/31/17 06:00 Blood Gas Puncture Site RT RADIAL ART LINE Blood Gas Patient Temperature 98.6 98.6 Blood Gas HCO3 20 mmol/L (22-26) 18 mmol/L (22-26) Blood Gas Base Excess -3.4 mmol/L (-2-2) -6.3 mmol/L (-2-2) Blood Gas Oxygen Saturation 98 % (90-100) 89 % (90-100) Arterial Blood pH 7.41 (7.380-7.420) 7.40 (7.380-7.420) Arterial Blood Partial Pressure CO2 33 mmHg (38-42) 29 mmHg (38-42) Arterial Blood Partial Pressure O2 253 mmHg (61-120) 64 mmHg (61-120) Arterial Blood Oxygen Content 9.3 Vol % (12.0-20.0) 7.5 Vol % (12.0-20.0) Arterial Blood Carboxyhemoglobin 1.4 % (0-4) 1.4 % (0-4) Arterial Blood Methemoglobin 1.1 % (0-2) 1.3 % (0-2) Blood Gas Hemoglobin 6.3 G/DL (12.0-16.0) 5.9 G/DL (12.0-16.0) Oxygen Delivery Device VENTILATOR VENTILATOR Blood Gas Ventilator Setting PRVC/AC Blood Gas Inspired Oxygen 80 % 50 % Imaging CXR: Hi effusion, PVC. Objective Remarks Gen: Intubated, unresponsive. Head: Hematoma occiput, no change. Neck: Collar, orally intubated. Lungs: Scattered rhonchi. Good bilateral air entry. Heart: NL S1S2, soft systolic mur at apex. +JVD. Abdomen: Soft, large, no peritoneal irritation. Quiet. No guarding. Extremities: 2+ pitting edema both legs and feet, well perfused. Neuro: Withdraws 4 limbs to stimulation. Pupils 2 mm, reactive. Breathes over vent. Cough, gag intact. A/P Assessment and Plan Assessment: 1. TBI. 2. Left SDH, traumatic. 3. Right and left temporal lobe contusion/bleed. 4. Chronic systolic heart failure ? ECHO shows pretty good LV function however. 5. Hypertension. 6. Respiratory failure. 7. PRINCE. Plan: 1. PRVC vent. PEEP to 10. 2. Lasix daily. 3. Add unloading agent - hydralazine may be best with his bradycardia. 4. Hold MATTY-I for now until renal function sorts out. 5. Start low dose beta stacie. 6. Follow BNP. 7. Cardiac ECHO. 8. Statin. 9. ICP monitor. 10. Bronchodilators. Overall impression: Patient is critically ill from TBI and neurologically unstable. Care is complicated by uncontrolled hypertension and chronic renal dysfunction. I anticipate complications related to his evolving head injury. Left SDH is enlarged to a size which will probably need evacuation, though recent plavix use will promote reaccumulation. Critical care 42 mins aside from procedures. Serge Marcaon MD Jul 31, 2017 07:43
[2017-07-31] MEDS: FUROSEMIDE 40 MG/4 ML VIAL IV PUSH SCH ×2 (07:44→18:00)
[2017-07-31] MEDS ORDERED: GLUCAGON 1 MG/ML VIAL OTHER PRN (07:45)
[2017-07-31] MEDS ORDERED: DEXTROSE 50% IN WATER 50 ML VIAL(D50) IV PUSH PRN (07:45)
[2017-07-31 08:03] LABS: ACANTHOCYTES 1+ (NORMAL); KERATOCYTES OCC (NORMAL); OVALOCYTES 1+ (NORMAL); TEARDROP RBCS 1+ (NORMAL)
[2017-07-31] MEDS ORDERED: SODIUM CHLOR 0.9% 250 ML INJ 250 ML IV ONE (08:15)
[2017-07-31] MEDS: METOPROLOL TARTRATE 25 MG TAB PO SCH ×2 (09:00→19:52)
[2017-07-31] MEDS ORDERED: hydrALAZINE HCL 25 MG TAB PO SCH (09:00)
[2017-07-31] MEDS: hydrALAZINE HCL 100 MG TAB PO SCH ×2 (09:25→19:53)
--- NOTE | 2017-07-31 11:00 | HHI.CCPN ---
Subjective Brief History 82-year-old gentleman who fell backwards off of a ladder with brief loss of consciousness and brief round of CPR at the scene was brought in as a level II trauma alert intubated in the trauma bay and upgraded to level I. He was found to have subdural and subarachnoid hemorrhages and was given 2 units of platelets for platelet dysfunction secondary to Plavix use. 24 Hour Review/Hospital Course 07/[address] appears to be worse today with slight increase in the size of his bleeds Is currently on a Cardene drip to maintain systolic blood pressure less than 160 , his beta stacie has been held for a heart rate in the mid 50s Objective Vital Signs Date Time Temp Pulse Resp B/P (MAP) Pulse Ox O2 Delivery O2 Flow Rate FiO2 07/31/17 08:53 100 50 07/31/17 08:00 57 07/31/17 08:00 98.8 17 143/63 (89) 07/30/17 20:30 Mechanical Ventilator 07/30/17 13:00 15.00 Intake and Output 07/31/17 07/31/17 08/01/17 08:00 16:00 00:00 Intake Total 1950 ml 400 ml Output Total 350 ml Balance 1600 ml 400 ml Result Diagram: 07/31/17 0630 07/31/17 0630 Other Results Laboratory Tests Test 07/30/17 14:38 07/31/17 06:00 Blood Gas Puncture Site RT RADIAL ART LINE Blood Gas Patient Temperature 98.6 98.6 Blood Gas HCO3 20 mmol/L (22-26) 18 mmol/L (22-26) Blood Gas Base Excess -3.4 mmol/L (-2-2) -6.3 mmol/L (-2-2) Blood Gas Oxygen Saturation 98 % (90-100) 89 % (90-100) Arterial Blood pH 7.41 (7.380-7.420) 7.40 (7.380-7.420) Arterial Blood Partial Pressure CO2 33 mmHg (38-42) 29 mmHg (38-42) Arterial Blood Partial Pressure O2 253 mmHg (61-120) 64 mmHg (61-120) Arterial Blood Oxygen Content 9.3 Vol % (12.0-20.0) 7.5 Vol % (12.0-20.0) Arterial Blood Carboxyhemoglobin 1.4 % (0-4) 1.4 % (0-4) Arterial Blood Methemoglobin 1.1 % (0-2) 1.3 % (0-2) Blood Gas Hemoglobin 6.3 G/DL (12.0-16.0) 5.9 G/DL (12.0-16.0) Oxygen Delivery Device VENTILATOR VENTILATOR Blood Gas Ventilator Setting PRVC/AC Blood Gas Inspired Oxygen 80 % 50 % Imaging Last 24 hours Impressions Chest X-Ray 07/31/17 0600 Signed Impressions: Service Date/Time: Monday, July 31, 2017 04:10 - CONCLUSION: Prominent bilateral mid and lower lobe opacities suggesting a combination of consolidation and pleural effusions. Pepe Smalls MD Head CT 07/31/17 0000 Signed Impressions: Service Date/Time: Monday, July 31, 2017 04:27 - CONCLUSION: 1. Interval increase in the size of the left subdural hematoma. Stable right subdural hematoma. 2. Increase in size of the right temporal tip hematoma. Stable size of the left temporal hematoma adjacent to the Yogi ridge. 3. Interval development of intraventricular blood. Pepe Smalls MD Head CT 07/30/17 1202 Signed Impressions: Service Date/Time: Sunday, July 30, 2017 12:17 - CONCLUSION: Extra axial hemorrhage on the left beginning along the temporal tip extending over the high convexities of the parietal region where it measures up to 8 mm across. Subarachnoid hemorrhage both temporal tips. Small subdural on the right along the temporal region 3-4 mm across. Polo Omer MD Chest X-Ray 07/30/17 1202 Signed Impressions: Service Date/Time: Sunday, July 30, 2017 11:53 - CONCLUSION: ET tube in good position. Lungs are grossly clear. Polo Omer MD Cervical Spine CT 07/30/17 1202 Signed Impressions: Service Date/Time: Sunday, July 30, 2017 12:17 - CONCLUSION: 1. Negative for fracture. 2. Degenerative changes consisting of uncinate ridging with neural foramen encroachment without radiographically significant spinal stenosis. 3. Bilateral moderate sized pleural effusions seen on the lower slices through the upper lungs lungs. Angel Brown MD FACR Exam [employer] Intubated and sedated, he does localize to pain Hemodynamic/Cardiac Regular rate and rhythm, stable, mild bradycardia, hypertension controlled with Cardene Pulmonary/Respiratory Clear to auscultation bilaterally, diminished Abdomen/GI Nutrition Soft, nontender, nondistended Renal/I&O Minimal urine output, BUN and creatinine are elevated Hematologic Patient has chronic anemia, but is being transfused for hemoglobin of 6.5 Assessment and Plan Plan Subarachnoid and subdural hemorrhages following fall with a platelets dysfunction secondary to Plavix -Continue supportive care and monitoring per neurosurgery -Continue full ventilator support as tolerated, he has increasing oxygen requirements having gone up on the PEEP this morning -Transfuse 2 units of packed cells. Although the patient has chronic anemia his hemoglobin is 6.5 today and transfusion will assist with oxygenation as well as renal perfusion -Start tube feeds today for nutritional support -Patient has an elevated BUN/creatinine with marginal urine output, he is on a large amount of diuretics at home, consider nephrology consult if this does not improve Reese Trinidad MD Jul 31, 2017 11:00
--- NOTE | 2017-07-31 11:12 | EKG ---
Date Performed: 07/30/2017 Time Performed: 13:53:22 PTAGE: 89 years EKG: Atrial fibrillation with slow ventricular response. IV conduction defect Inferior T wave ch anges are nonspecific Abnormal ECG NO PREVIOUS TRACING DOCTOR: Polo Quinteros Interpretating Date/Time 07/31/2017 11:11:41
[2017-07-31] MEDS: fentaNYL 2,500 MCG/NS 250 ML IV PRN (12:23)
--- NOTE | 2017-07-31 12:23 | ECHRPT ---
Indication: Heart Failure CONCLUSIONS Mildly dilated left ventricle. Wall thickness is normal. The left ventricular systolic function is low normal with an estimated ejection fraction in the rang e of 50- 55%. Mitral annular calcification is present. Trace mitral valve regurgitation. There is estimated mild pulmonary hypertension present (40 mmHg). BP: / HR: Rhythm: MEASUREMENTS (Male / Female) Normal Values Technical Quality:Good 2D ECHO LV Diastolic Diameter PLAX 5.4 cm 4.2 - 5.9 / 3.9 - 5.3 cm LV Systolic Diameter PLAX 4.0 cm IVS Diastolic Thickness 0.6 cm 0.6 - 1.0 / 0.6 - 0.9 cm LVPW Diastolic Thickness 0.9 cm 0.6 - 1.0 / 0.6 - 0.9 cm LV Relative Wall Thickness 0.3 LA Systolic Diameter LX 4.2 cm 3.0 - 4.0 / 2.7 - 3.8 cm M-MODE Aortic Root Diameter MM 3.2 cm AV Cusp Separation MM 1.9 cm DOPPLER AV Peak Velocity 236.0 cm/s AV Peak Gradient 22.3 mmHg LVOT Peak Velocity 149.0 cm/s LVOT Peak Gradient 8.9 mmHg Mitral E Point Velocity 96.0 cm/s Mitral A Point Velocity 78.8 cm/s Mitral E to A Ratio 1.2 TR Peak Velocity 273.0 cm/s TR Peak Gradient 29.8 mmHg Right Atrial Pressure 10.0 mmHg Pulmonary Artery Systolic Pressu 39.8 mmHg Right Ventricular Systolic Press 39.8 mmHg FINDINGS LEFT VENTRICLE Mildly dilated left ventricle. Wall thickness is normal. The left ventricular systolic function is low normal with an estimated ejection fraction in the rang e of 50- 55%. RIGHT VENTRICLE Normal right ventricular size and systolic function. LEFT ATRIUM The left atrial size is normal. RIGHT ATRIUM The right atrial size is normal. ATRIAL SEPTUM Normal atrial septal thickness without atrial level shunting by limited color doppler interrogation. AORTA The aortic root and proximal ascending aorta are normal in size on limited imaging. MITRAL VALVE Mitral annular calcification is present. Trace mitral valve regurgitation. AORTIC VALVE Trileaflet aortic valve. No aortic valve stenosis or regurgitation. TRICUSPID VALVE There is estimated mild pulmonary hypertension present (40 mmHg). PULMONARY VALVE No pulmonary valve regurgitation or stenosis. VESSELS The inferior vena cava is normal in size. PERICARDIUM No pericardial effusion. Nathalie Tanner MD, FACC (Electronically Signed) Final Date:31 July 2017 12:22
[2017-07-31 12:41] LABS: HEMATOCRIT 22.9 % (39.0-51.0); HEMOGLOBIN 7.7 GM/DL (13.0-17.0)
[2017-07-31] MEDS: MULTIVITAMIN INJ 10 ML, THIAMINE INJ 100 MG, FOLIC ACID INJ 1 MG in SODIUM CHLORID 0.9%... IV SCH (13:15)
--- NOTE | 2017-07-31 14:59 | HHI.NSPN ---
Note Status Status: Progress Note Interval History Interval History This is an 82-year-old gentleman who fell backwards off of a ladder approximately 10 feet. He underwent a brief round of CPR but was found to be spontaneously breathing so it was stopped patient was brought in the trauma bay hypertensive and confused he was intubated in the trauma bay. No seizure activity reported. No tongue biting. No incontinence of stool or urine. No tonic-clonic movements. He had unequal pupils and a coffee-ground emesis prior to intubation. He was upgraded to a level I trauma alert. He was resuscitated according to the ATLS protocol and full trauma workup was carried down. He was found to have right subarachnoid hemorrhage as well as subdural hematoma. He was given 2 units of platelets that for his platelet insufficiency due to Plavix. He was moving his extremities. Neurosurgical consultation was requested 07/31/17. Remains intubated and sedated. ICP monitor in place. A follow-up CT of the brain was obtained Labs, Micro, & Vital Signs Results Date Time Temp Pulse Resp B/P (MAP) Pulse Ox O2 Delivery O2 Flow Rate FiO2 07/31/17 13:15 54 125/60 07/31/17 12:45 54 120/58 07/31/17 12:21 54 120/59 07/31/17 12:00 97.5 62 13 123/59 (80) 98 07/31/17 11:46 100 40 07/31/17 11:05 56 124/61 07/31/17 11:00 56 124/61 07/31/17 08:53 100 50 07/31/17 08:00 57 07/31/17 08:00 98.8 57 17 143/63 (89) 95 07/31/17 08:00 55 07/31/17 07:43 57 132/62 07/31/17 06:00 58 07/31/17 05:30 60 133/50 07/31/17 04:15 100 100 07/31/17 04:00 98.2 66 17 144/40 (74) 92 07/31/17 04:00 40 07/31/17 04:00 66 07/31/17 03:46 99 40 07/31/17 02:49 51 133/44 07/31/17 02:00 50 07/31/17 01:56 51 129/68 07/31/17 01:40 100 40 07/31/17 00:00 40 07/31/17 00:00 58 07/31/17 00:00 97.9 58 24 137/43 (74) 98 07/30/17 23:27 56 138/63 07/30/17 22:00 53 07/30/17 21:18 56 149/68 07/30/17 20:30 100 Mechanical Ventilator 40 07/30/17 20:30 96.1 52 22 144/59 (87) 100 07/30/17 20:30 52 07/30/17 20:30 40 07/30/17 20:27 99 50 07/30/17 20:27 100 40 07/30/17 19:21 49 128/60 07/30/17 18:46 51 135/63 07/30/17 17:45 54 142/55 07/30/17 17:30 55 152/55 07/30/17 17:15 55 153/66 07/30/17 17:00 47 152/63 07/30/17 16:45 48 164/73 07/30/17 16:31 44 137/65 07/30/17 16:00 44 07/30/17 16:00 100 40 07/30/17 16:00 94.8 44 16 148/67 (94) 100 07/30/17 15:45 44 157/69 07/30/17 15:30 48 154/67 07/30/17 15:15 49 151/70 08/01/17 07:00 Intake Total 2250 ml Balance 2250 ml Constitutional Vital Signs Date Time Temp Pulse Resp B/P (MAP) Pulse Ox O2 Delivery O2 Flow Rate FiO2 07/31/17 13:15 54 125/60 07/31/17 12:45 54 120/58 07/31/17 12:21 54 120/59 07/31/17 12:00 97.5 62 13 123/59 (80) 98 07/31/17 11:46 100 40 07/31/17 11:05 56 124/61 07/31/17 11:00 56 124/61 3/4/18 08:53 100 50 18 08:00 57 318 08:00 98.8 57 17 143/63 (89) 95 18 08:00 55 18 07:43 57 132/62 18 06:00 58 18 05:30 60 133/50 18 04:15 100 100 07/31/17 04:00 98.2 66 17 144/40 (74) 92 07/31/17 04:00 40 07/31/17 04:00 66 18 03:46 99 40 07/31/17 02:49 51 133/44 07/31/17 02:00 50 07/31/17 01:56 51 129/68 07/31/17 01:40 100 40 07/31/17 00:00 40 07/31/17 00:00 58 07/31/17 00:00 97.9 58 24 137/43 (74) 98 07/30/17 23:27 56 138/63 07/30/17 22:00 53 07/30/17 21:18 56 149/68 07/30/17 20:30 100 Mechanical Ventilator 40 07/30/17 20:30 96.1 52 22 144/59 (87) 100 07/30/17 20:30 52 07/30/17 20:30 40 07/30/17 20:27 99 50 18 20:27 100 40 07/30/17 19:21 49 128/60 07/30/17 18:46 51 135/63 07/30/17 17:45 54 142/55 07/30/17 17:30 55 152/55 07/30/17 17:15 55 153/66 07/30/17 17:00 47 152/63 07/30/17 16:45 48 164/73 07/30/17 16:31 44 137/65 07/30/17 16:00 44 07/30/17 16:00 100 40 07/30/17 16:00 94.8 44 16 148/67 (94) 100 07/30/17 15:45 44 157/69 07/30/17 15:30 48 154/67 07/30/17 15:15 49 151/70 08/01/17 07:00 Intake Total 2250 ml Balance 2250 ml Physical Exam Mr Alonzo is intubated and sedated. Hematoma occiput. Withdraws to painful stimulii with all 4 extremities. Cranial Nerves: Pupils equal, round, reactive to light. Eyes appear conjugated. There was no nystagmus, no papilledema. Face musculature appeared symmetrical at rest. Face sensation, olfaction, visual moreno, and hearing cannot be adequately assessed due to his neurological condition. The patient has a corneal reflex. He has a gag reflex. The sternocleidomastoid and trapezius are symmetrical. Cervical Spine: His neck is soft, supple, without nuchal rigidity. Motor: His muscle tone and bulk are normal. He moves Withdrawing all 4 extremities symmetrically. Reflexes: Deep tendon reflexes are 1+ and symmetrical in the biceps, triceps, and brachioradialis, bilaterally, in the upper extremities. In the lower extremities, the patellar and ankles are 1+, bilaterally. There is a bilateral plantar flexion response. There is no clonus or other abnormal reflexes noted. Sensory: On examination there is response to painful stimuli, Withdrawing with both upper and lower extremities. Cerebellar: Examination cannot be adequately assessed due to the patient's neurological condition. CARDIOVASCULAR: Regular rate and rhythm. No obvious murmurs to auscultation. No chest tenderness to palpation. RESPIRATORY: No obvious rhonchi or wheezing. Clear to auscultation. Breath sounds equal bilaterally. GASTROINTESTINAL: Abdomen soft, non-tender, nondistended. BS normal. MUSCULOSKELETAL: Extremities without clubbing, cyanosis, or edema. No obvious deformities. Medications Current Medications Current Medications Ondansetron HCl (Zofran Inj) 4 mg STK-MED ONCE .ROUTE ; Start 07/30/17 at 11:55; Stop 07/30/17 at 11:56; Status DC Propofol 100 ml @ As Directed STK-MED ONCE .ROUTE ; Start 07/30/17 at 12:04; Stop 07/30/17 at 12:05; Status DC Nicardipine HCl (Cardene Inj) 25 mg STK-MED ONCE .ROUTE ; Start 07/30/17 at 12:08 ; Stop 07/30/17 at 12:09; Status DC Sodium Chloride 1,000 ml @ 125 mls/hr Q8H IV Last administered on 07/31/17at 05: 24; Start 07/30/17 at 12:31 Sodium Chloride (NS Flush) 2 ml UNSCH PRN IV FLUSH FLUSH AFTER USING IV ACCESS ; Start 07/30/17 at 12:45 Ondansetron HCl (Zofran Inj) 4 mg Q6H PRN IV PUSH NAUSEA OR VOMITING; Start 07/30/17 at 12:45 Multivitamins 10 ml/Thiamine HCl 100 mg/Folic Acid 1 mg/Sodium Chloride 511.2 ml @ 125 mls/hr Q24H IV Last administered on 07/31/17at 13:15; Start 07/30/17 at 15:00; Stop 08/01/17 at 19:06 Docusate Sodium (Colace) 100 mg BID PO Last administered on 07/31/17at 07:42; Start 07/30/17 at 21:00 Magnesium Hydroxide (Milk Of Magnesia Liq) 30 ml Q6H PRN PO CONSTIPATION; Start 07/30/17 at 12:45 Miscellaneous Information 1 [id number] XX ; Start 07/30/17 at 12:45 Chlorhexidine Gluconate (Chlorhexidine 2% Cloth) 3 pack Taper DAILY@04 TOP ; Start 07/31/17 at 04:00; Stop 07/27/18 at 03:59 Chlorhexidine Gluconate (Chlorhexidine 2% Cloth) 3 pack UNSCH PRN TOP HYGIENIC CARE; Start 07/30/17 at 12:45 Propofol 100 ml @ 0 mls/hr TITRATE PRN IV SEDATION; Start 07/30/17 at 13:00; Stop 07/30/17 at 13:30; Status DC Chlorhexidine Gluconate (Peridex 0.12% Liq) 15 ml BID@08,20 MT Last administered on 07/31/17at 07:43; Start 07/30/17 at 20:00 Propofol 100 ml @ 0 mls/hr TITRATE PRN IV SEDATION; Start 07/30/17 at 13:00; Stop 07/30/17 at 13:00; Status DC Fentanyl Citrate 250 ml TITRATE PRN IV SEDATION; Start 07/30/17 at 13:00; Stop 07/30/17 at 13:00; Status DC Fentanyl Citrate 250 ml TITRATE PRN IV SEDATION; Start 07/30/17 at 13:00; Stop 07/30/17 at 13:30; Status DC Albuterol/ Ipratropium (Duoneb Neb) 1 ampule Q6HR NEB NEB Last administered on 07/31/17at 08:53; Start 07/30/17 at 16:00 Diphtheria/ Tetanus/Acell Pertussis (Boostrix Inj) 0.5 ml STK-MED ONCE IM ; Start 07/30/17 at 12:58; Stop 07/30/17 at 12:59; Status DC Etomidate (Amidate Inj) 20 mg STK-MED ONCE .ROUTE ; Start 07/30/17 at 13:01; Stop 07/30/17 at 13:02; Status DC Succinylcholine Chloride (Quelicin Inj) 200 mg STK-MED ONCE .ROUTE ; Start at 13:01; Stop 07/30/17 at 13:02; Status DC Fentanyl Citrate 250 ml @ 5 mls/hr TITRATE PRN IV Sedation Last administered on 07/31/17at 12:23; Start 07/30/17 at 13:30 Propofol 100 ml @ 2.64 mls/hr TITRATE PRN IV SEDATION Last administered on 07/31at 14:23; Start 07/30/17 at 13:30 Famotidine (Pepcid) 10 mg BID PO Last administered on 07/31/17at 07:42; Start 07/30/17 at 21:00 Nicardipine HCl 25 mg/Sodium Chloride 250 ml @ 50 mls/hr TITRATE PRN IV Blood pressure management Last administered on 07/31/17at 11:00; Start 07/30/17 at 16:15 Spironolactone (Aldactone) 25 mg DAILY PO Last administered on 07/31/17at 07:42; Start 07/31/17 at 09:00 Pravastatin Sodium (Pravachol) 40 mg DAILY PO Last administered on 07/31/17at 07: 42; Start 07/31/17 at 09:00 Metoprolol Tartrate (Lopressor) 25 mg Q12HR PO ; Start 07/31/17 at 09:00 Hydralazine HCl (Apresoline) 25 mg Q12HR PO Last administered on 07/31/17at 07:42 ; Start 07/31/17 at 09:00; Stop 07/31/17 at 09:00; Status DC Furosemide (Lasix Inj) 40 mg BID@09,18 IV PUSH Last administered on 07/31/17at 07 :44; Start 07/31/17 at 09:00 Dextrose (D50w (Vial) Inj) 50 ml UNSCH PRN IV PUSH HYPOGLYCEMIA-SEE COMMENTS; Start 07/31/17 at 07:45 Glucagon (Glucagon Inj) 1 mg UNSCH PRN OTHER HYPOGLYCEMIA-SEE COMMENTS; Start 07/31/17 at 07:45 Insulin Aspart (NovoLOG SUPPLEMENTAL SCALE) 1 Q6H SQ ; Start 07/31/17 at 07:45 Sodium Chloride 250 ml @ 15 mls/hr ONCE ONCE IV Last administered on at 10:55; Start 07/31/17 at 08:15; Stop 08/01/17 at 00:54 Terazosin HCl (Hytrin) 10 mg HS PO ; Start 07/31/17 at 21:00 Hydralazine HCl (Apresoline) 100 mg Q12HR PO Last administered on 07/31/17at 09: 25; Start 07/31/17 at 09:00 Medical Decision Making MDM Remarks Armando Risk Assessment Model Point Value = 1 Point Value = 2 Point Value = 3 Point Value = 5 Age 41-60 Minor surgery BMI > 25 kg/m2 Swollen legs Varicose veins or History of unexplained or recurrent spontaneous Oral contraceptives or hormone replacement Sepsis (< 1 month) Serious lung disease, including pneumonia (< 1 month) Abnormal pulmonary function Acute myocardial infarction Congestive heart failure (< 1 month) History of inflammatory bowel disease Medical patient at bed rest Age 61-74 Arthroscopic surgery Major open surgery (> 45 min) Laparoscopic surgery (> 45 min) Malignancy Confined to bed (> 72 hours) Immobilizing plaster cast Central venous access Age >= 75 History of VTE Family history of VTE Factor V Leiden Prothrombin [id number] Lupus anticoagulant Anticardiolipin antibodies Elevated serum homocysteine Heparin-induced thrombocytopenia Other congenital or acquired thrombophilia Stroke (< 1 month) Elective arthroplasty Hip, pelvis, or leg fracture Acute spinal cord injury (< 1 month) Prophylaxis Regimen Total Risk Factor Score Risk Level Prophylaxis Regimen 0-1 Low Early ambulation 2 Moderate Order ONE of the following: *Sequential Compression Device (SCD) *Heparin 5000 units SQ BID 3-4 Higher Order ONE of the following medications: *Heparin 5000 units SQ TID *Enoxaparin/Lovenox 40 mg SQ daily (WT < 150 kg, CrCl > 30 mL/min) *Enoxaparin/Lovenox 30 mg SQ daily (WT < 150 kg, CrCl > 10-29 mL/min) *Enoxaparin/Lovenox 30 mg SQ BID (WT < 150 kg, CrCl > 30 mL/min) AND/OR *Sequential Compression Device (SCD) 5 or more Highest Order ONE of the following medications: *Heparin 5000 units SQ TID (Preferred with Epidurals) *Enoxaparin/Lovenox 40 mg SQ daily (WT < 150 kg, CrCl > 30 mL/min) *Enoxaparin/Lovenox 30 mg SQ daily (WT < 150 kg, CrCl > 10-29 mL/min) *Enoxaparin/Lovenox 30 mg SQ BID (WT < 150 kg, CrCl > 30 mL/min) AND *Sequential Compression Device (SCD) Attending Statement I reviewed his follow-up radiological studies Last 48 hours Impressions Chest X-Ray 07/31/17 0600 Signed Impressions: Service Date/Time: Monday, July 31, 2017 04:10 - CONCLUSION: Prominent bilateral mid and lower lobe opacities suggesting a combination of consolidation and pleural effusions. Pepe Smalls MD Head CT 07/31/17 0000 Signed Impressions: Service Date/Time: Monday, July 31, 2017 04:27 - CONCLUSION: 1. Interval increase in the size of the left subdural hematoma. Stable right subdural hematoma. 2. Increase in size of the right temporal tip hematoma. Stable size of the left temporal hematoma adjacent to the Yogi ridge. 3. Interval development of intraventricular blood. Pepe Smalls MD Head CT 07/30/17 1202 Signed Impressions: Service Date/Time: Sunday, July 30, 2017 12:17 - CONCLUSION: Extra axial hemorrhage on the left beginning along the temporal tip extending over the high convexities of the parietal region where it measures up to 8 mm across. Subarachnoid hemorrhage both temporal tips. Small subdural on the right along the temporal region 3-4 mm across. Polo Omer MD Chest X-Ray 07/30/17 1202 Signed Impressions: Service Date/Time: Sunday, July 30, 2017 11:53 - CONCLUSION: ET tube in good position. Lungs are grossly clear. Polo Omer MD Cervical Spine CT 07/30/17 1202 Signed Impressions: Service Date/Time: Sunday, July 30, 2017 12:17 - CONCLUSION: 1. Negative for fracture. 2. Degenerative changes consisting of uncinate ridging with neural foramen encroachment without radiographically significant spinal stenosis. 3. Bilateral moderate sized pleural effusions seen on the lower slices through the upper lungs lungs. Angel Brown MD FACR His left sided subdural hematoma looks worse. He is at risk fir clinical deterioration. If further increase in the size of the hemorrhage he may need to undergo a craniotomy with evacuation of the hematoma Pulmonary. Continue full mechanical ventilation in Assist control mode of ventilation aggressive pulmonary toilette, nasotracheal suction, and breathing treatments with nebulizers. Daily PT and OT Renal. monitor closely urine output, BUN and creatinine Endocrine.Monitor serial Acu checks and SSI as needed in detail ID monitor for signs of infection Protonix for stress ulcer prophylaxis Gilbert hose and SCD's for DVT prophylaxis Further recommendations will be provided depending on the patient's clinical evaluation and follow up studies Les Horne MD Jul 31, 2017 14:59
--- NOTE | 2017-07-31 15:12 | RADRPT ---
EXAM DATE/TIME: 07/31/2017 14:25 [facility] COMPARISON: No previous studies available for comparison. INDICATIONS : Fell on right side. MEDICAL HISTORY : None. SURGICAL HISTORY : None. ENCOUNTER: Initial ACUITY: 1 day PAIN SCORE: Non-responsive. LOCATION: Right shoulder. FINDINGS: High riding humeral head is noted and characteristic of rotator cuff tear. There is osteophyte format ion of the humeral head and mild hypertrophic changes of the acromioclavicular joint, moderate glenoh umeral joint narrowing. CONCLUSION: No obvious fracture or dislocation. Degenerative changes. Prasanna Milan MD on July 31, 2017 at 15:09 Board Certified Radiologist. This report was verified electronically.
[2017-07-31] MEDS: TERAZOSIN HCL 5 MG CAP PO SCH (19:52)
[2017-08-01] VITALS (19 sets, daily range): BP systolic 125–148; BP diastolic 57–68; PULSE 51–66; RESP 12–20; TEMP 96.1–99.5; O2SAT 92–100
[2017-08-01] MEDS: SODIUM CHLOR 0.9% 1000 ML INJ 1,000 ML IV SCH ×2 (00:24→08:45)
[2017-08-01] MEDS: INSULIN ASPART SUPPLEMENTAL SCALE SQ SCH ×4 (01:45→18:00)
[2017-08-01] MEDS: PROPOFOL 1000 MG/100 ML IV PRN ×6 (03:24→21:33)
[2017-08-01] MEDS: RESP: ALBUTEROL 2.5 MG/IPRATROPIUM 0.5 MG NEB (SCH) NEB ×4 (03:26→20:21)
[2017-08-01] MEDS: CHLORHEXIDINE GLUCONATE 2 % 1 PACK (2 CLOTHS) TOP SCH (04:00)
[2017-08-01 05:07] LABS: AUTOMATED NEUTROPHIL # 6.2 TH/MM3 (1.8-7.7); BASOPHIL % 0.3 % (0.0-2.0); EOSINOPHIL # 0.1 TH/MM3 (0-0.4); EOSINOPHIL % 1.6 % (0.0-4.0); HEMATOCRIT 23.2 % (39.0-51.0); HEMOGLOBIN 7.8 GM/DL (13.0-17.0); LYMPH % 10.8 % (9.0-44.0); LYMPHOCYTE # 0.9 TH/MM3 (1.0-4.8); MEAN CELL VOLUME 86.2 FL (80.0-100.0); MEAN CORPUSCULAR HGB CONC 33.6 % (32.0-36.0); MEAN PLATELET VOLUME 9.1 FL (7.0-11.0); MONO % 14.1 % (0.0-8.0); MONOCYTE # 1.2 TH/MM3 (0-0.9); NEUT % 73.2 % (16.0-70.0); PLATELET COUNT 123 TH/MM3 (150-450); RED CELL DISTRIBUTION WIDTH 26.4 % (11.6-17.2); WHITE BLOOD COUNT 8.4 TH/MM3 (4.0-11.0)
[2017-08-01 05:45] LABS: ALBUMIN 2.5 GM/DL (3.4-5.0); BICARBONATE 17.8 MEQ/L (21.0-32.0); CALCIUM 6.8 MG/DL (8.5-10.1); CALCIUM-PROTEIN CORRECTED 7.8 MG/DL (8.5-10.1); CREATININE 2.32 MG/DL (0.60-1.30); TOTAL BILIRUBIN ADULT 0.5 MG/DL (0.2-1.0); TOTAL PROTEIN 5.2 GM/DL (6.4-8.2)
--- NOTE | 2017-08-01 06:16 | RADRPT ---
EXAM DATE/TIME: 08/01/2017 04:52 [facility] COMPARISON: CHEST SINGLE AP, July 31, 2017, 4:10. INDICATIONS : Short of breath. MEDICAL HISTORY : None. SURGICAL HISTORY : None. ENCOUNTER: Subsequent ACUITY: 4 - 6 days PAIN SCORE: 0/10 LOCATION: Bilateral chest FINDINGS: Portable AP view of the chest demonstrates a normal-sized cardiac silhouette. ETT and nasogastric tub e remain present. Moderate-sized bibasilar pleural-parenchymal opacities are stable. There is no pneu mothorax. CONCLUSION: Stable chest x-ray with bilateral pleural effusions with associated volume loss and or airspace conso lidation. Ra Pulliam MD on August 01, 2017 at 6:13 Board Certified Radiologist. This report was verified electronically.
[2017-08-01 07:04] LABS: ACANTHOCYTES 1+ (NORMAL); OVALOCYTES 1+ (NORMAL)
[2017-08-01] MEDS: fentaNYL 2,500 MCG/NS 250 ML IV PRN ×2 (07:13→22:26)
[2017-08-01] MEDS: DOCUSATE SODIUM 100 MG CAP PO SCH (08:44)
[2017-08-01] MEDS: FUROSEMIDE 40 MG/4 ML VIAL IV PUSH SCH ×2 (08:44→17:37)
[2017-08-01] MEDS: SPIRONOLACTONE 25 MG TAB PO SCH (08:44)
[2017-08-01] MEDS: METOPROLOL TARTRATE 25 MG TAB PO SCH ×2 (08:44→21:33)
[2017-08-01] MEDS: hydrALAZINE HCL 100 MG TAB PO SCH ×2 (08:45→20:19)
[2017-08-01] MEDS: PRAVASTATIN SOD 40 MG TAB PO SCH (08:45)
[2017-08-01] MEDS: FAMOTIDINE 20 MG TAB PO SCH ×2 (08:45→20:19)
[2017-08-01] MEDS: CHLORHEXIDINE 0.12% (ORAL KIT) 15 ML CUP MT SCH ×2 (08:46→20:00)
[2017-08-01] MEDS: levETIRAcetam INJ 500 MG in SODIUM CHLORIDE 0.9% INJ 100 ML IV SCH ×2 (10:00→20:20)
--- NOTE | 2017-08-01 10:17 | HHI.CCPN ---
Subjective Remarks/Hospital Course 82 y/o man fell from height and sustained closed head trauma including left subdural hematoma and bilateral temporal parenchymal bleeds in areas of contusion. Admission CXR is impressive for pulmonary venous congestion. Home meds are not known at this time. 07/31: Enlarging left subdural hemorrhage and enlarging parenchymal contusions/ bleeds undoubtedly exacerbated by Plavix and aspirin use. CXR demonstrates bilateral effusions but improved pulmonary venous congestion after diuretic yesterday. Unfortunately a worsening azotemia has developed indicating he may not tolerate diuresis well. Follow renal function closely. I would have predicted chronic systolic heart failure after observing his effusions and ankles but his cardiac ECHO reveals reasonable biventricular function, probably EF > 50%. This may all be primary renal disease considering his reduced GFR and chronic anemia. 08/01: Remains sedated, orally intubated on mechanical ventilation Objective Vital Signs Date Time Temp Pulse Resp B/P (MAP) Pulse Ox O2 Delivery O2 Flow Rate FiO2 08/01/17 07:34 92 50 08/01/17 06:00 55 08/01/17 04:00 96.3 12 139/63 (88) 07/30/17 20:30 Mechanical Ventilator 07/30/17 13:00 15.00 Intake and Output 08/01/17 08/01/17 08/02/17 08:00 16:00 00:00 Intake Total 450 ml Output Total 375 ml Balance 75 ml Result Diagram: 08/01/17 0400 08/01/17 0400 Other Results Laboratory Tests Test 08/01/17 04:40 Blood Gas Puncture Site LT BRACHIAL Blood Gas Patient Temperature 98.6 Blood Gas HCO3 17 mmol/L (22-26) Blood Gas Base Excess -7.5 mmol/L (-2-2) Blood Gas Oxygen Saturation 96 % (90-100) Arterial Blood pH 7.37 (7.380-7.420) Arterial Blood Partial Pressure CO2 30 mmHg (38-42) Arterial Blood Partial Pressure O2 106 mmHg (61-120) Arterial Blood Oxygen Content 10.1 Vol % (12.0-20.0) Arterial Blood Carboxyhemoglobin 1.4 % (0-4) Arterial Blood Methemoglobin 0.9 % (0-2) Blood Gas Hemoglobin 7.3 G/DL (12.0-16.0) Oxygen Delivery Device VENTILATOR Blood Gas Ventilator Setting PRVC/AC Blood Gas Inspired Oxygen 40 % Imaging CXR: Hi effusion, PVC. Objective Remarks GENERAL: Intubated and sedated SKIN: Warm/dry. HEAD: Atraumatic. Normocephalic. EYES: Pupils unequal, right pupil 2 mm left pupil 3 mm reactive to light. Subconjunctival hemorrhage on the right side. No scleral icterus. No injection or drainage. ENT: No nasal bleeding or discharge. Mucous membranes pink and moist. NECK: Trachea midline. No JVD. CARDIOVASCULAR: Regular rate and rhythm. RESPIRATORY: Clear to auscultation. Breath sounds equal bilaterally. GASTROINTESTINAL: Abdomen soft, non-tender, nondistended. MUSCULOSKELETAL: No obvious deformities. No clubbing. No cyanosis. No edema. NEUROLOGICAL: Sedated, orally intubated on mechanical ventilation. PSYCHIATRIC: Unable to assess. A/P Assessment and Plan Admitted to trauma ICU for traumatic brain injury following a fall from height Encephalopathy TBI Left subdural hematoma/subarachnoid hemorrhage/right frontal contusion Acute respiratory failure on mechanical ventilation Chronic anemia with drop in hemoglobin Decompensated CHF - Serial neuro exams - Continue sedation, no sedation vacation till cleared by neurosurgery. - Neurosurgery consulted and following - Transfused 2 units platelets for dysfunction secondary to Plavix. Transfuse 2 units PRBCs on 3/4 for drop in hemoglobin. No overt source of blood loss currently. Recommend CT abdomen pelvis if hemoglobin drops again in view of recent trauma -Continue sedation, mechanical ventilation, vent bundle. ICP monitoring with bolt- ICPs have remained within normal limits Neurosurgery to decide regarding evacuation of subdural hematoma - Continue beta stacie, statin, Lasix. 2-D echo with normal LV EF. -strict intake output, monitor and replete electro lites, follow BUN creatinine If no surgery planned recommend starting tube feeds GI prophylaxiis with Pepcid, DVT prophylaxis with SCDs. No subcutaneous heparin till cleared by neurosurgery. Being followed by trauma team Patient remains critically ill with traumatic brain injury and respiratory failure Total critical care time in evaluation and management of this critically ill trauma activation was 35 minutes Zi Mcqueen MD Aug 01, 2017 10:16
--- NOTE | 2017-08-01 11:51 | PD.HHIRBSE ---
Patient History Record/History Review Reason for Referral: The patient is a 82 year old unknown handed male status post traumatic brain injury secondary to a fall from a ladder sustained on 07/30/2017. Work-up revealed right SAH and SDH. Head CT worsened in day 2. His ICPs have been around 8. He is referred for baseline neurobehavioral status examination per trauma protocol to assess cognitive, behavioral and emotional aspects of the injury and to provide treatment recommendations. Neuropsych Precautions: To be determined. Past Surgical/Medical History Past Surgery: Yes (fem-pop bypass with stent palcement (PVD)) Major surgery in last 100 days: Unknown Hx Anesthesia Reactions: No Hx Orthopedic Surgery: No Hx Cardiac Surgery: No Hx Chest Surgery: No Hx Abdominal Surgery: No Hx Genitourinary Surgery: No Hx Endocrine Surgery: No Hx Eye Surgery: No Hx Ear Surgery: No Hx Oral Surgery: No History of Transplant: No Hx of Neuro Prob: No Hx of Musculoskeletal Pro: Yes (right shoulder compresion fx from fall recently ) Hx of Cardiovascular Prob: Yes Hypertension (High Blood Press: Yes Hx Clotting Problems: No Venous Thromboembolism Present: No Hx Chest Pain: No Hx Lightheadedness: No Hx Congestive Heart Failure: Yes Syncope (Fainting): No Hx of Respiratory Problem: No Hx of GI Problems: Yes (perforated appendix - sepsis (2years ago)) Hx of Problems: Yes (high BUN/Cr) Hx of Immuno Disor: No Hx of Endocrine Problems: Yes Hx Diabetes: Yes Diabetic Diagnosed 3 Months Or: No Hx of Eye Probl: No Hx of Hearing or Ear Problems: Yes (hearing aid bilateral) Hard of Hearing: Bilateral Hx Dental Problems: No Hx Psychiatric Problems: No Hx Blood Dyscrasias: Yes (anemia - on Iron supplement) Hx Sickle Cell Disease: No Hx Thrombocytopenia: No Hx Hemophilia: No Hx of Heparin Induced Thr: No Hx of MDRO: No Hx of MRSA: No Hx of VRE: No Hx of CDIFF: No Hx of Tuberculosis: No Hx of Body/Medical Devices: No Hx Pacemaker: No Hx Internal Defibrillator: No Central Line/Ports (Type): No Hx Joint Replacement: No Insulin Pump: No Hx Arteriovenous Shunt: No Hx Dental Implants: No Hx Eye Prosthesis: No Genitourinary Device: No Genitourinary Ostomy: No Gastrointestinal Ostomy: No Blood Transfusion History Will receive Blood /Blood prod: Yes Hx Blood Transfusions: No Medication Active Medications Levetriacetam 500 mg/Sodium Chloride 105 ml @ 420 mls/hr Q12HR IV Last administered on 08/01/17at 10:00; Admin Dose 420 MLS/HR; Start 08/01/17 at 10:00 Terazosin HCl (Hytrin) 10 mg HS PO Last administered on 07/31/17at 19:52; Admin Dose 10 MG; Start 07/31/17 at 21:00 Mental Status Assessment Orientation: unable to asses Self, unable to asses Place, unable to asses Time , unable to asses Situation Observation The patient is intubated and sedated. Adjustment/Coping Assessment Adjustment/Coping: Not Assessed: Depression, Anxiety, Pain, Apathy, Awareness, Insight Observation The patient is intubated and sedated. LTG Status: Deferred STG Status: Deferred Team Members: Neuropsychologist Behavior Assessment Agitation: None Treatment Engagement: No effort Observation Behaviorally, the patient demonstrated no signs of agitation, impulsivity or disinhibition. There was no remarkable evidence of a formal thought disorder or psychosis. LTG - Status: Deferred STG Status: Deferred Team Members: Neuropsychologist Diagnosis/Discharge Plan Impression 82 y/o male s/p TBI 2T fall on 07/30/2017. Diagnosis: (1) Major neurocognitive disorder as late effect of traumatic brain injury without behavioral disturbance [facility] Level: I:No response-total assistance Maximizing acute care outcome It is recommended that the patient be monitored for emergent behavioral impulsivity as the medical condition evolves. This patients neuropathological challenges may limit his rehabilitation potential going forward, and these challenges will require specialized therapeutic skills to maximize outcome. Additionally, the patients family is experiencing ongoing issues of adjustment given the traumatic nature of the injury, and they may benefit from ongoing psychological assistance. At this point in the recovery process, the patient does not have cognitive capacity as the patient is unable to understand a situation and its likely consequences, nor is he able to manipulate information rationally. Cognitive capacity will be assessed throughout the recovery process. Discharge Planning Anticipated Problems Ongoing areas of concern will include behavioral impulsivity, lack of insight and judgment, which is expected to improve with time and treatment. Presently , the patient is intubated and sedated. Treatment Plan This clinician will continue to follow with you throughout the course of this patients critical care treatment, and I will be available to meet with the patients family/support system to facilitate their understanding and the ongoing care of their family member. The goals of neuropsychological intervention shall be both educational and supportive to the family/support system as is deemed clinically appropriate. Thank you Thank you for the opportunity to assist in this patients care. Micah Sotelo, Ph.D., ABPP Board Certified in Clinical Neuropsychology [place] [employer] [place] Licensed Psychologist #[id number] Micah Sotelo PhD Aug 01, 2017 11:51 am
[2017-08-01] MEDS ORDERED: DEXTROSE 5% IN WATE 1000ML INJ 1,000 ML IV SCH (12:00)
--- NOTE | 2017-08-01 12:07 | PD.CONS ---
HPI Consult Requested By Reason for Consult Acute on chronic renal insufficiency. Primary Care Physician Unknown History of Present Illness This patient is an 82-year-old male who unfortunately cannot provide any history secondary to head injury, intubated status on a ventilator. History obtained from records and from his daughter. Limited history available. Family patient has a history suggesting peripheral vascular disease, congestive heart failure, chronic lower extremity edema with dyspnea, chronic renal sufficiency?. According to the patient's daughter he was hospitalized back in 2013 at [facility]. Developed a ruptured appendix post colonoscopy subsequently developing acute renal failure and requiring laparotomy. According to the patient's daughter he was on dialysis temporarily. Not following up with a english and reading instructor routinely in recent times. They cannot recall name of his primary care physician currently also. Patient apparently fell short distance from a ladder and hit his head and subsequently has been diagnosed as having a subdural as well as subarachnoid hemorrhage. Creatinine was elevated at the time of presentation at 1.5 and chest x-ray showed evidence of congestive heart failure and the patient had a hemoglobin that was only 7.4. Echocardiogram performed July 31, 2017 revealed an ejection fraction of 50-55%. Patient's albumin on presentation his low with a low corrected calcium 7.8. Review of Systems ROS Limitations: Clinical Condition, Altered Mental Status Past Family Social History Allergies: Coded Allergies: No Allergy Information Available (Unverified , 07/30/17) Past Medical History Limited history available. Chronic kidney disease? CHF? Chronic lower extremity edema. Peripheral vascular disease? Acute renal failure back in 2013 requiring dialysis in house temporarily. Contrast related? Past Surgical History Laparotomy for ruptured appendix. Physical Exam Vital Signs Vital Signs Date Time Temp Pulse Resp B/P (MAP) Pulse Ox O2 Delivery O2 Flow Rate FiO2 08/01/17 10:18 97 45 08/01/17 10:00 60 08/01/17 08:00 58 08/01/17 08:00 50 08/01/17 08:00 96.4 58 12 148/68 (94) 100 08/01/17 07:34 92 50 08/01/17 07:34 92 50 08/01/17 06:00 55 08/01/17 04:15 100 40 08/01/17 04:00 56 08/01/17 04:00 96.3 55 12 139/63 (88) 100 3/5/18 04:00 40 08/01/17 03:39 55 149/68 08/01/17 02:00 55 08/01/17 02:00 55 08/01/17 00:36 100 40 08/01/17 00:00 40 08/01/17 00:00 53 08/01/17 00:00 96.1 51 12 125/57 (79) 100 07/31/17 22:00 58 07/31/17 21:00 52 111/54 07/31/17 20:59 54 123/58 07/31/17 20:30 100 40 07/31/17 20:30 100 40 07/31/17 20:00 96.8 51 12 119/58 (78) 100 07/31/17 20:00 40 07/31/17 20:00 51 07/31/17 19:11 60 127/58 07/31/17 17:17 57 149/68 07/31/17 16:45 57 149/70 07/31/17 16:30 56 140/62 07/31/17 16:15 55 141/66 07/31/17 16:00 96.8 55 21 141/62 (88) 100 07/31/17 16:00 55 141/62 07/31/17 16:00 55 07/31/17 15:45 55 154/67 07/31/17 15:24 100 40 07/31/17 13:15 54 125/60 07/31/17 12:45 54 120/58 07/31/17 12:21 54 120/59 07/31/17 12:00 97.5 62 13 123/59 (80) 98 Physical Exam Elderly male with an ET tube in place. GENERAL: SKIN: Warm and dry. ET tube in place. HEAD: Normocephalic. EYES: No scleral icterus. No injection or drainage. NECK: Supple, trachea midline. No JVD CARDIOVASCULAR: Regular rate and rhythm without murmurs, gallops, or rubs. RESPIRATORY: Breath sounds equal bilaterally. Diminished in bases. GASTROINTESTINAL: Abdomen soft, non-tender, distended but nontender.. MUSCULOSKELETAL: No cyanosis, 2-3+ edema involving feet, legs, hips, 1+ pitting edema involving hands and forearms. BACK: Nontender without obvious deformity. No CVA tenderness. Laboratory Laboratory Tests Test 07/31/17 12:11 08/01/17 04:00 08/01/17 04:40 Hemoglobin 7.7 7.8 Hematocrit 22.9 23.2 White Blood Count 8.4 Red Blood Count 2.70 Mean Corpuscular Volume 86.2 Mean Corpuscular Hemoglobin 29.0 Mean Corpuscular Hemoglobin Concent 33.6 Red Cell Distribution Width 26.4 Platelet Count 123 Mean Platelet Volume 9.1 Neutrophils (%) (Auto) 73.2 Lymphocytes (%) (Auto) 10.8 Monocytes (%) (Auto) 14.1 Eosinophils (%) (Auto) 1.6 Basophils (%) (Auto) 0.3 Neutrophils # (Auto) 6.2 Lymphocytes # (Auto) 0.9 Monocytes # (Auto) 1.2 Eosinophils # (Auto) 0.1 Basophils # (Auto) 0.0 CBC Comment AUTO DIFF Differential Comment AUTO DIFF CONFIRMED Platelet Estimate LOW Platelet Morphology Comment NORMAL Ovalocytes 1+ Acanthocytes 1+ Blood Urea Nitrogen 42 Creatinine 2.32 Random Glucose 84 Total Protein 5.2 Albumin 2.5 Calcium Level 6.8 Alkaline Phosphatase 122 Aspartate Amino Transf (AST/SGOT) 10 Alanine Aminotransferase (ALT/SGPT) 11 Total Bilirubin 0.5 Sodium Level 149 Potassium Level 4.1 Chloride Level 118 Carbon Dioxide Level 17.8 Anion Gap 13 Estimat Glomerular Filtration Rate 27 Protein Corrected Calcium 7.8 Blood Gas Puncture Site LT BRACHIAL Blood Gas Patient Temperature 98.6 Blood Gas HCO3 17 Blood Gas Base Excess -7.5 Blood Gas Oxygen Saturation 96 Arterial Blood pH 7.37 Arterial Blood Partial Pressure CO2 30 Arterial Blood Partial Pressure O2 106 Arterial Blood Oxygen Content 10.1 Arterial Blood Carboxyhemoglobin 1.4 Arterial Blood Methemoglobin 0.9 Blood Gas Hemoglobin 7.3 Oxygen Delivery Device VENTILATOR Blood Gas Ventilator Setting PRVC/AC Blood Gas Inspired Oxygen 40 Result Diagram: 08/01/17 0400 08/01/17 040 Imaging Last 48 hours Impressions Chest X-Ray 08/01/17599 Signed Impressions: Service Date/Time: Tuesday, August 01, 2017 04:52 - CONCLUSION: Stable chest x-ray with bilateral pleural effusions with associated volume loss and or airspace consolidation. Ra Pulliam MD Chest X-Ray 07/31/17 06 Signed Impressions: Service Date/Time: Monday, July 31, 2017 04:10 - CONCLUSION: Prominent bilateral mid and lower lobe opacities suggesting a combination of consolidation and pleural effusions. Pepe Smalls MD Shoulder X-Ray 07/31/17 0000 Signed Impressions: Service Date/Time: Monday, July 31, 2017 14:25 - CONCLUSION: No obvious fracture or dislocation. Degenerative changes. Prasanna Milan MD Head CT 07/31/17 0000 Signed Impressions: Service Date/Time: Monday, July 31, 2017 04:27 - CONCLUSION: 1. Interval increase in the size of the left subdural hematoma. Stable right subdural hematoma. 2. Increase in size of the right temporal tip hematoma. Stable size of the left temporal hematoma adjacent to the [place] ridge. 3. Interval development of intraventricular blood. Pepe Smalls MD Head CT 07/30/17 1202 Signed Impressions: Service Date/Time: Sunday, July 30, 2017 12:17 - CONCLUSION: Extra axial hemorrhage on the left beginning along the temporal tip extending over the high convexities of the parietal region where it measures up to 8 mm across. Subarachnoid hemorrhage both temporal tips. Small subdural on the right along the temporal region 3-4 mm across. Polo Omer MD Chest X-Ray 07/30/17 1202 Signed Impressions: Service Date/Time: Sunday, July 30, 2017 11:53 - CONCLUSION: ET tube in good position. Lungs are grossly clear. Polo Omer MD Cervical Spine CT 07/30/17 1202 Signed Impressions: Service Date/Time: Sunday, July 30, 2017 12:17 - CONCLUSION: 1. Negative for fracture. 2. Degenerative changes consisting of uncinate ridging with neural foramen encroachment without radiographically significant spinal stenosis. 3. Bilateral moderate sized pleural effusions seen on the lower slices through the upper lungs lungs. Angel Brown MD FACR Assessment and Plan Problem List: (1) Acute kidney insufficiency ICD Codes: N28.9 - Disorder of kidney and ureter, unspecified Status: Acute Plan: Patient had no evidence of contrast exposure this admission. Renal sufficiency may be related to cardiac decompensation but this remains to be determined. Evidence of clinical fluid overload despite elevation in serum sodium level. Discussed with family severity of renal sufficiency and the possibility that his azotemia may progress. Remains be determined whether not renal replacement therapy may be indicated this admission as discussed with them. (2) CKD (chronic kidney disease) stage 3, GFR 30-59 ml/min ICD Codes: N18.3 - Chronic kidney disease, stage 3 (moderate) Plan: Baseline renal function unknown. Patient currently has a history of chronic lower extremity edema and dyspnea. Unfortunately previous records not available but I suspect that the patient has a component of chronic CHF. 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 Also previous history of acute renal failure may have resulted in significant deterioration in his baseline renal function but those records are not available to me currently. (3) Congestive heart failure ICD Codes: I50.9 - Heart failure, unspecified Plan: Continue with necessary diuresis. Will add Diuril to furosemide in view of hyponatremia and need for more aggressive diuresis. Monitor response. Most likely has some degree of diastolic dysfunction as EF was reported as being 50-55%. (4) Edema due to congestive heart failure ICD Codes: I50.9 - Heart failure, unspecified Plan: In addition patient does have evidence of hypoalbuminemia. Need to determine as the patient has significant proteinuria. Check protein/ creatinine ratio urine. (5) Hypocalcemia ICD Codes: E83.51 - Hypocalcemia Plan: Check vitamin D levels. (6) Anemia ICD Codes: D64.9 - Anemia, unspecified Assessment and Plan Etiology of anemia uncertain. Check iron saturation and ferritin. Also screen for multiple myeloma in view of anemia in the setting of chronic kidney disease. Remains be determined whether not patient may have anemia of chronic kidney disease. Problem Qualifiers (1) Congestive heart failure: Michell Chavez MD Aug 01, 2017 12:07
--- NOTE | 2017-08-01 12:40 | HHI.NSPN ---
(Kathe Murphy) Note Status Status: Progress Note (Kathe Murphy) Interval History Interval History This is an 82-year-old gentleman who fell backwards off of a ladder approximately 10 feet. He underwent a brief round of CPR but was found to be spontaneously breathing so it was stopped patient was brought in the trauma bay hypertensive and confused he was intubated in the trauma bay. No seizure activity reported. No tongue biting. No incontinence of stool or urine. No tonic-clonic movements. He had unequal pupils and a coffee-ground emesis prior to intubation. He was upgraded to a level I trauma alert. He was resuscitated according to the ATLS protocol and full trauma workup was carried down. He was found to have right subarachnoid hemorrhage as well as subdural hematoma. He was given 2 units of platelets that for his platelet insufficiency due to Plavix. He was moving his extremities. Neurosurgical consultation was requested 07/31/17. Remains intubated and sedated. ICP monitor in place. A follow-up CT of the brain was obtained 08/01/17: intubated and sedated, ICPs below 10. (Kathe Murphy) Labs, Micro, & Vital Signs Results Date Time Temp Pulse Resp B/P (MAP) Pulse Ox O2 Delivery O2 Flow Rate FiO2 08/01/17 10:18 97 45 08/01/17 10:00 60 08/01/17 08:00 58 08/01/17 08:00 50 08/01/17 08:00 96.4 58 12 148/68 (94) 100 08/01/17 07:34 92 50 08/01/17 07:34 92 50 08/01/17 06:00 55 08/01/17 04:15 100 40 08/01/17 04:00 56 08/01/17 04:00 96.3 55 12 139/63 (88) 100 08/01/17 04:00 40 08/01/17 03:39 55 149/68 08/01/17 02:00 55 08/01/17 02:00 55 3/5/18 00:36 100 40 08/01/17 00:00 40 08/01/17 00:00 53 08/01/17 00:00 96.1 51 12 125/57 (79) 100 07/31/17 22:00 58 07/31/17 21:00 52 111/54 07/31/17 20:59 54 123/58 07/31/17 20:30 100 40 07/31/17 20:30 100 40 07/31/17 20:00 96.8 51 12 119/58 (78) 100 07/31/17 20:00 40 07/31/17 20:00 51 07/31/17 19:11 60 127/58 07/31/17 17:17 57 149/68 07/31/17 16:45 57 149/70 07/31/17 16:30 56 140/62 07/31/17 16:15 55 141/66 07/31/17 16:00 96.8 55 21 141/62 (88) 100 07/31/17 16:00 55 141/62 07/31/17 16:00 55 07/31/17 15:45 55 154/67 07/31/17 15:24 100 40 07/31/17 13:15 54 125/60 07/31/17 12:45 54 120/58 08/02/17 07:00 Intake Total 250 ml Balance 250 ml Constitutional Vital Signs Date Time Temp Pulse Resp B/P (MAP) Pulse Ox O2 Delivery O2 Flow Rate FiO2 08/01/17 10:18 97 45 08/01/17 10:00 60 08/01/17 08:00 58 08/01/17 08:00 50 08/01/17 08:00 96.4 58 12 148/68 (94) 100 08/01/17 07:34 92 50 08/01/17 07:34 92 50 08/01/17 06:00 55 08/01/17 04:15 100 40 08/01/17 04:00 56 08/01/17 04:00 96.3 55 12 139/63 (88) 100 08/01/17 04:00 40 08/01/17 03:39 55 149/68 08/01/17 02:00 55 08/01/17 02:00 55 08/01/17 00:36 100 40 08/01/17 00:00 40 08/01/17 00:00 53 08/01/17 00:00 96.1 51 12 125/57 (79) 100 07/31/17 22:00 58 07/31/17 21:00 52 111/54 07/31/17 20:59 54 123/58 07/31/17 20:30 100 40 07/31/17 20:30 100 40 07/31/17 20:00 96.8 51 12 119/58 (78) 100 07/31/17 20:00 40 07/31/17 20:00 51 07/31/17 19:11 60 127/58 07/31/17 17:17 57 149/68 07/31/17 16:45 57 149/70 07/31/17 16:30 56 140/62 07/31/17 16:15 55 141/66 07/31/17 16:00 96.8 55 21 141/62 (88) 100 07/31/17 16:00 55 141/62 07/31/17 16:00 55 07/31/17 15:45 55 154/67 07/31/17 15:24 100 40 07/31/17 13:15 54 125/60 07/31/17 12:45 54 120/58 08/02/17 07:00 Intake Total 250 ml Balance 250 ml (Kathe Murphy) Review of Systems ROS Limitations: Clinical Condition, Intubated (Kathe Murphy) Physical Exam Mr Alonzo is intubated and well sedated. Not opening eyes, not following commands. Right ICP monitor in place, ICPs = 8 Cranial Nerves: Pupils right 2mm, left 3 mm round. Eyes appear conjugated. Cervical Spine: soft, supple Motor: His muscle tone and bulk are normal. not following commands for testing Reflexes: bilateral plantar flexion response. Sensory: minimal response to painful stimuli Cerebellar: cannot be adequately assessed due to the patient's neurological condition. Heart: regular rate, rhythm Resp: clear, mechanically ventilated (Kathe Murphy) Mr Alonzo is intubated and well sedated. Not opening eyes, not following commands. Right ICP monitor in place, ICPs = 8 Cranial Nerves: Pupils right 2mm, left 3 mm round. Eyes appear conjugated. Cervical Spine: soft, supple Motor: His muscle tone and bulk are normal. not following commands for testing Reflexes: bilateral plantar flexion response. Sensory: minimal response to painful stimuli Cerebellar: cannot be adequately assessed due to the patient's neurological condition. Heart: regular rate, rhythm Resp: clear, mechanically ventilated (Les Horne MD) Medications Current Medications Current Medications Medications (Trade) Dose Ordered Sig/Juliet Route PRN Reason Start Time Stop Time Status Last Admin Dose Admin Sodium Chloride (NS Flush) 2 ml UNSCH PRN IV FLUSH FLUSH AFTER USING IV ACCESS 07/30/17 12:45 Ondansetron HCl (Zofran Inj) 4 mg Q6H PRN IV PUSH NAUSEA OR VOMITING 07/30/17 12:45 Multivitamins 10 ml/Thiamine HCl 100 mg/Folic Acid 1 mg/Sodium Chloride 511.2 ml @ 125 mls/hr Q24H IV 07/30/17 15:00 08/01/17 19:06 07/31/17 13:15 Docusate Sodium (Colace) 100 mg BID PO 07/30/17 21:00 08/01/17 08:44 Magnesium Hydroxide (Milk Of Magnesia Liq) 30 ml Q6H PRN PO CONSTIPATION 07/30/17 12:45 Miscellaneous Information 1 Q361D XX 07/30/17 12:45 Chlorhexidine Gluconate (Chlorhexidine 2% Cloth) 3 pack Taper DAILY@04 TOP 07/31/17 04:00 07/27/18 03:59 Chlorhexidine Gluconate (Chlorhexidine 2% Cloth) 3 pack UNSCH PRN TOP HYGIENIC CARE 07/30/17 12:45 Chlorhexidine Gluconate (Peridex 0.12% Liq) 15 ml BID@08,20 MT 07/30/17 20:00 08/01/17 08:46 Albuterol/ Ipratropium (Duoneb Neb) 1 ampule Q6HR NEB NEB 07/30/17 16:00 08/01/17 08:04 Fentanyl Citrate 250 ml @ 5 mls/hr TITRATE PRN IV Sedation 07/30/17 13:30 08/01/17 07:13 Propofol 100 ml @ 2.64 mls/hr TITRATE PRN IV SEDATION 07/30/17 13:30 08/01/17 09:59 Famotidine (Pepcid) 10 mg BID PO 07/30/17 21:00 08/01/17 08:45 Nicardipine HCl 25 mg/Sodium Chloride 250 ml @ 50 mls/hr TITRATE PRN IV Blood pressure management 07/30/17 16:15 07/31/17 20:59 Pravastatin Sodium (Pravachol) 40 mg DAILY PO 07/31/17 09:00 08/01/17 08:45 Metoprolol Tartrate (Lopressor) 25 mg Q12HR PO 07/31/17 09:00 08/01/17 08:44 Furosemide (Lasix Inj) 40 mg BID@18 IV PUSH 07/31/17 09:00 08/01/17 08:44 Dextrose (D50w (Vial) Inj) 50 ml UNSCH PRN IV PUSH HYPOGLYCEMIA-SEE COMMENTS 07/31/17 07:45 Glucagon (Glucagon Inj) 1 mg UNSCH PRN OTHER HYPOGLYCEMIA-SEE COMMENTS 07/31/17 07:45 Insulin Aspart (NovoLOG SUPPLEMENTAL SCALE) 1 Q6H SQ 07/31/17 07:45 Terazosin HCl (Hytrin) 10 mg HS PO 07/31/17 21:00 07/31/17 19:52 Hydralazine HCl (Apresoline) 100 mg Q12HR PO 07/31/17 09:00 08/01/17 08:45 Levetriacetam 500 mg/Sodium Chloride 105 ml @ 420 mls/hr Q12HR IV 08/01/17 10:00 08/01/17 10:00 Dextrose 1,000 ml @ 42 mls/hr [id number] IV 08/01/17 12:00 UNV Chlorothiazide Sodium (Diuril Inj) 250 mg Q12HR IV 08/01/17 12:00 UNV (Kathe Murphy) Current Medications Current Medications Ondansetron HCl (Zofran Inj) 4 mg STK-MED ONCE .ROUTE ; Start 07/30/17 at 11:55; Stop 07/30/17 at 11:56; Status DC Propofol 100 ml @ As Directed STK-MED ONCE .ROUTE ; Start 07/30/17 at 12:04; Stop 07/30/17 at 12:05; Status DC Nicardipine HCl (Cardene Inj) 25 mg STK-MED ONCE .ROUTE ; Start 07/30/17 at 12:08 ; Stop 07/30/17 at 12:09; Status DC Sodium Chloride 1,000 ml @ 60 mls/hr [id number] IV Last administered on 08/01/17at 08:45; Start 07/30/17 at 12:31; Stop 08/01/17 at 11:50; Status DC Sodium Chloride (NS Flush) 2 ml UNSCH PRN IV FLUSH FLUSH AFTER USING IV ACCESS ; Start 07/30/17 at 12:45 Ondansetron HCl (Zofran Inj) 4 mg Q6H PRN IV PUSH NAUSEA OR VOMITING; Start 07/30/17 at 12:45 Multivitamins 10 ml/Thiamine HCl 100 mg/Folic Acid 1 mg/Sodium Chloride 511.2 ml @ 125 mls/hr Q24H IV Last administered on 07/31/17at 13:15; Start 07/30/17 at 15:00; Stop 08/01/17 at 19:06 Docusate Sodium (Colace) 100 mg BID PO Last administered on 08/01/17at 08:44; Start 07/30/17 at 21:00 Magnesium Hydroxide (Milk Of Magnesia Liq) 30 ml Q6H PRN PO CONSTIPATION; Start 07/30/17 at 12:45 Miscellaneous Information 1 Q361D XX ; Start 07/30/17 at 12:45 Chlorhexidine Gluconate (Chlorhexidine 2% Cloth) 3 pack Taper DAILY@04 TOP ; Start 07/31/17 at 04:00; Stop 07/27/18 at 03:59 Chlorhexidine Gluconate (Chlorhexidine 2% Cloth) 3 pack UNSCH PRN TOP HYGIENIC CARE; Start 07/30/17 at 12:45 Propofol 100 ml @ 0 mls/hr TITRATE PRN IV SEDATION; Start 07/30/17 at 13:00; Stop 07/30/17 at 13:30; Status DC Chlorhexidine Gluconate (Peridex 0.12% Liq) 15 ml BID@08,20 MT Last administered on 08/01/17at 08:46; Start 07/30/17 at 20:00 Propofol 100 ml @ 0 mls/hr TITRATE PRN IV SEDATION; Start 07/30/17 at 13:00; Stop 07/30/17 at 13:00; Status DC Fentanyl Citrate 250 ml TITRATE PRN IV SEDATION; Start 07/30/17 at 13:00; Stop 07/30/17 at 13:00; Status DC Fentanyl Citrate 250 ml TITRATE PRN IV SEDATION; Start 07/30/17 at 13:00; Stop 07/30/17 at 13:30; Status DC Albuterol/ Ipratropium (Duoneb Neb) 1 ampule Q6HR NEB NEB Last administered on 08/01/17 08:04; Start 07/30/17 at 16:00 Diphtheria/ Tetanus/Acell Pertussis (Boostrix Inj) 0.5 ml STK-MED ONCE IM ; Start 07/30/17 at 12:58; Stop 07/30/17 at 12:59; Status DC Etomidate (Amidate Inj) 20 mg STK-MED ONCE .ROUTE ; Start 07/30/17 at 13:01; Stop 07/30/17 at 13:02; Status DC Succinylcholine Chloride (Quelicin Inj) 200 mg STK-MED ONCE .ROUTE ; Start at 13:01; Stop 07/30/17 at 13:02; Status DC Fentanyl Citrate 250 ml @ 5 mls/hr TITRATE PRN IV Sedation Last administered on 08/01/17at 07:13; Start 07/30/17 at 13:30 Propofol 100 ml @ 2.64 mls/hr TITRATE PRN IV SEDATION Last administered on 08/01at 09:59; Start 07/30/17 at 13:30 Famotidine (Pepcid) 10 mg BID PO Last administered on 08/01/17at 08:45; Start 07/30/17 at 21:00 Nicardipine HCl 25 mg/Sodium Chloride 250 ml @ 50 mls/hr TITRATE PRN IV Blood pressure management Last administered on 08/01/17at 13:11; Start 07/30/17 at 16:15 Spironolactone (Aldactone) 25 mg DAILY PO Last administered on 08/01/17 08:44; Start 07/31/17 at 09:00; Stop 08/01/17 at 09:54; Status DC Pravastatin Sodium (Pravachol) 40 mg DAILY PO Last administered on 08/01/17at 08: 45; Start 07/31/17 at 09:00 Metoprolol Tartrate (Lopressor) 25 mg Q12HR PO Last administered on 08/01/17at 08 :44; Start 07/31/17 at 09:00 Hydralazine HCl (Apresoline) 25 mg Q12HR PO Last administered on 07/31/17at 07:42 ; Start 07/31/17 at 09:00; Stop 07/31/17 at 09:00; Status DC Furosemide (Lasix Inj) 40 mg BID@09,18 IV PUSH Last administered on 08/01/17at 08 :44; Start 07/31/17 at 09:00 Dextrose (D50w (Vial) Inj) 50 ml UNSCH PRN IV PUSH HYPOGLYCEMIA-SEE COMMENTS; Start 07/31/17 at 07:45 Glucagon (Glucagon Inj) 1 mg UNSCH PRN OTHER HYPOGLYCEMIA-SEE COMMENTS; Start 07/31/17 at 07:45 Insulin Aspart (NovoLOG SUPPLEMENTAL SCALE) 1 Q6H SQ ; Start 07/31/17 at 07:45 Sodium Chloride 250 ml @ 15 mls/hr ONCE ONCE IV Last administered on at 10:55; Start 07/31/17 at 08:15; Stop 08/01/17 at 00:54; Status DC Terazosin HCl (Hytrin) 10 mg HS PO Last administered on 07/31/17at 19:52; Start 07/31/17 at 21:00 Hydralazine HCl (Apresoline) 100 mg Q12HR PO Last administered on 08/01/17at 08: 45; Start 07/31/17 at 09:00 Levetriacetam 500 mg/Sodium Chloride 105 ml @ 420 mls/hr Q12HR IV Last administered on 08/01/17at 10:00; Start 08/01/17 at 10:00 Dextrose 1,000 ml @ 42 mls/hr [id number] IV Last administered on 08/01/17at 13:09; Start 08/01/17 at 12:00 Chlorothiazide Sodium (Diuril Inj) 250 mg Q12H IV Last administered on at 13:10; Start 08/01/17 at 13:00 Clonidine (Catapres-Tts 0.2 Mg Patch.7d) 1 patch Q7D T-DERMAL ; Start 08/01/17 at 13:30; Status UNV (Les Horne MD) Medical Decision Making MDM Remarks 82-year-old gentleman who fell backwards off of a ladder approximately 10 feet TBI, s/p placement of intracranial pressure monitor with stable ICPs CT Brain 07/31/17: increase in the size of the left subdural hematoma. Stable right subdural hematoma. Increase in size of the right temporal tip hematoma. Stable size left temporal hematoma (Kathe Murphy) Plan Plan Remarks cont ICP monitoring, cont nonsurgical mgt for now, for f/u CT Brain today serial neuro checks nonchemical dvt prophylaxis in view of acute ICH stress ulcer prophylaxis seizure prophylaxis (Kathe Murphy) Attending Statement Reginaldi Risk Assessment Model Point Value = 1 Point Value = 2 Point Value = 3 Point Value = 5 Age 41-60 Minor surgery BMI > 25 kg/m2 Swollen legs Varicose veins or History of unexplained or recurrent spontaneous Oral contraceptives or hormone replacement Sepsis (< 1 month) Serious lung disease, including pneumonia (< 1 month) Abnormal pulmonary function Acute myocardial infarction Congestive heart failure (< 1 month) History of inflammatory bowel disease Medical patient at bed rest Age 61-74 Arthroscopic surgery Major open surgery (> 45 min) Laparoscopic surgery (> 45 min) Malignancy Confined to bed (> 72 hours) Immobilizing plaster cast Central venous access Age >= 75 History of VTE Family history of VTE Factor V Leiden Prothrombin [id number] Lupus anticoagulant Anticardiolipin antibodies Elevated serum homocysteine Heparin-induced thrombocytopenia Other congenital or acquired thrombophilia Stroke (< 1 month) Elective arthroplasty Hip, pelvis, or leg fracture Acute spinal cord injury (< 1 month) Prophylaxis Regimen Total Risk Factor Score Risk Level Prophylaxis Regimen 0-1 Low Early ambulation 2 Moderate Order ONE of the following: *Sequential Compression Device (SCD) *Heparin 5000 units SQ BID 3-4 Higher Order ONE of the following medications: *Heparin 5000 units SQ TID *Enoxaparin/Lovenox 40 mg SQ daily (WT < 150 kg, CrCl > 30 mL/min) *Enoxaparin/Lovenox 30 mg SQ daily (WT < 150 kg, CrCl > 10-29 mL/min) *Enoxaparin/Lovenox 30 mg SQ BID (WT < 150 kg, CrCl > 30 mL/min) AND/OR *Sequential Compression Device (SCD) 5 or more Highest Order ONE of the following medications: *Heparin 5000 units SQ TID (Preferred with Epidurals) *Enoxaparin/Lovenox 40 mg SQ daily (WT < 150 kg, CrCl > 30 mL/min) *Enoxaparin/Lovenox 30 mg SQ daily (WT < 150 kg, CrCl > 10-29 mL/min) *Enoxaparin/Lovenox 30 mg SQ BID (WT < 150 kg, CrCl > 30 mL/min) AND *Sequential Compression Device (SCD) I again reviewed his multiple follow-up radiological studies Chest X-Ray 07/31/17 0600 Signed Impressions: Service Date/Time: Monday, July 31, 2017 04:10 - CONCLUSION: Prominent bilateral mid and lower lobe opacities suggesting a combination of consolidation and pleural effusions. Pepe Smalls MD Head CT 07/31/17 0000 Signed Impressions: Service Date/Time: Monday, July 31, 2017 04:27 - CONCLUSION: 1. Interval increase in the size of the left subdural hematoma. Stable right subdural hematoma. 2. Increase in size of the right temporal tip hematoma. Stable size of the left temporal hematoma adjacent to the Yogi ridge. 3. Interval development of intraventricular blood. Pepe Smalls MD Head CT 07/30/17 1202 Signed Impressions: Service Date/Time: Sunday, July 30, 2017 12:17 - CONCLUSION: Extra axial hemorrhage on the left beginning along the temporal tip extending over the high convexities of the parietal region where it measures up to 8 mm across. Subarachnoid hemorrhage both temporal tips. Small subdural on the right along the temporal region 3-4 mm across. Polo Omer MD Chest X-Ray 07/30/17 1202 Signed Impressions: Service Date/Time: Sunday, July 30, 2017 11:53 - CONCLUSION: ET tube in good position. Lungs are grossly clear. Polo Omer MD Cervical Spine CT 07/30/17 1202 Signed Impressions: Service Date/Time: Sunday, July 30, 2017 12:17 - CONCLUSION: 1. Negative for fracture. 2. Degenerative changes consisting of uncinate ridging with neural foramen encroachment without radiographically significant spinal stenosis. 3. Bilateral moderate sized pleural effusions seen on the lower slices through the upper lungs lungs. Angel Brown MD FACR His left sided subdural hematoma looks worse. He is at risk fir clinical deterioration. We will obtain a follow up CT tomorrow. If further increase in the size of the hemorrhage he may need to undergo a craniotomy with evacuation of the hematoma Pulmonary. Continue full mechanical ventilation in Assist control mode of ventilation aggressive pulmonary toilette, nasotracheal suction, and breathing treatments with nebulizers. Daily PT and OT Renal. monitor closely urine output, BUN and creatinine Endocrine.Monitor serial Acu checks and SSI as needed in detail ID monitor for signs of infection Protonix for stress ulcer prophylaxis Gilbert hose and SCD's for DVT prophylaxis Further recommendations will be provided depending on the patient's clinical evaluation and follow up studies (Les Horne MD) Kathe Murphy Aug 01, 2017 12:40 Les Horne MD Aug 01, 2017 14:25
[2017-08-01] MEDS: CHLOROTHIAZIDE SOD 500 MG VIAL IV SCH (13:10)
[2017-08-01] MEDS: niCARdipine INJ 25 MG in SODIUM CHLOR 0.9% 250 ML INJ 240 ML IV PRN (13:11)
--- NOTE | 2017-08-01 13:23 | HHI.CCPN ---
Subjective Brief History 82-year-old gentleman who fell backwards off of a ladder with brief loss of consciousness and brief round of CPR at the scene was brought in as a level II trauma alert intubated in the trauma bay and upgraded to level I. He was found to have subdural and subarachnoid hemorrhages and was given 2 units of platelets for platelet dysfunction secondary to Plavix use. Final injuries Right temporal intraparenchymal hemorrhage with slight subdural component Left frontoparietal and temporo-occipital subdural hematoma about 1 cm thick Patient has complex history of CHF,coronary artery disease, diabetes mellitus and chronic renal insufficiency requiring dialysis in 2013. Since then patient has been off dialysis but at this point creatinine is rising. 24 Hour Review/Hospital Course 07/[address] appears to be worse today with slight increase in the size of his bleeds Is currently on a Cardene drip to maintain systolic blood pressure less than 160 , his beta stacie has been held for a heart rate in the mid 50s 08/01/2017 Patient is intubated ventilated on propofol and fentanyl ICP measurements about 5-8 mmHg Remains sedated not moving any extremities at this time Hemodynamically patient is stable with hypertension. Patient is noted to be hypertensive from home and some of medications have been reinstituted In addition to Lopressor and hydralazine patient is currently on Cardene drip in order to keep systolic blood pressure under 160 mmHg Patient will need Catapres patch in order to wean off Cardene In face of increased creatinine and BUN patient did not have IV contrast to assess the chest and abdomen but externally there are no signs of trauma to either Renal function as above noted is impaired with rising creatinine and BUN. Nephrology consult from Dr. Chavez is greatly appreciated Patient will be managed expectantly and as the neurologic function improves sedation will be gradually weaned It should be noted that severe brain trauma in this age group with related medical problems survival is very low and patient is a high mortality probably in the range of 80-90%. Objective Vital Signs Date Time Temp Pulse Resp B/P (MAP) Pulse Ox O2 Delivery O2 Flow Rate FiO2 08/01/17 10:18 97 45 08/01/17 10:00 60 08/01/17 08:00 96.4 12 148/68 (94) 07/30/17 20:30 Mechanical Ventilator 07/30/17 13:00 15.00 Intake and Output 08/01/17 08/01/17 08/02/17 08:00 16:00 00:00 Intake Total 450 ml Output Total 375 ml Balance 75 ml Result Diagram: 08/01/17 04008/01/17 040 Other Results Laboratory Tests Test 08/01/17 04:40 Blood Gas Puncture Site LT BRACHIAL Blood Gas Patient Temperature 98.6 Blood Gas HCO3 17 mmol/L (22-26) Blood Gas Base Excess -7.5 mmol/L (-2-2) Blood Gas Oxygen Saturation 96 % (90-100) Arterial Blood pH 7.37 (7.380-7.420) Arterial Blood Partial Pressure CO2 30 mmHg (38-42) Arterial Blood Partial Pressure O2 106 mmHg (61-120) Arterial Blood Oxygen Content 10.1 Vol % (12.0-20.0) Arterial Blood Carboxyhemoglobin 1.4 % (0-4) Arterial Blood Methemoglobin 0.9 % (0-2) Blood Gas Hemoglobin 7.3 G/DL (12.0-16.0) Oxygen Delivery Device VENTILATOR Blood Gas Ventilator Setting PRVC/AC Blood Gas Inspired Oxygen 40 % Imaging Last 24 hours Impressions Chest X-Ray 08/01/17 0600 Signed Impressions: Service Date/Time: Tuesday, August 01, 2017 04:52 - CONCLUSION: Stable chest x-ray with bilateral pleural effusions with associated volume loss and or airspace consolidation. Ra Pulliam MD Exam [employer] Patient is intubated ventilated on propofol and fentanyl ICP measurements about 5-8 mmHg Remains sedated not moving any extremities at this time Hemodynamic/Cardiac Hemodynamically patient is stable with hypertension. Patient is noted to be hypertensive from home and some of medications have been reinstituted In addition to Lopressor and hydralazine patient is currently on Cardene drip in order to keep systolic blood pressure under 160 mmHg Patient will need Catapres patch in order to wean off Cardene Echocardiogram ejection fraction about 50% Pulmonary/Respiratory Bilateral breath sounds intubated ventilated on assist control ventilation and will remain so until weaning can be started in the face of resolving brain trauma Abdomen/GI Nutrition Abdomen is soft active bowel sounds will start feeding once acute issues resolved in the next 24 hours Renal/I&O In face of increased creatinine and BUN patient did not have IV contrast to assess the chest and abdomen but externally there are no signs of trauma to either Renal function as above noted is impaired with rising creatinine and BUN. Nephrology consult from Dr. Chavez is greatly appreciated Patient will be managed expectantly and as the neurologic function improves sedation will be gradually weaned It should be noted that severe brain trauma in this age group with related medical problems survival is very low and patient is a high mortality probably in the range of 80-90%. Assessment and Plan Plan Subarachnoid and subdural hemorrhages following fall with a platelets dysfunction secondary to Plavix -Continue supportive care and monitoring per neurosurgery -Continue full ventilator support as tolerated, he has increasing oxygen requirements having gone up on the PEEP this morning -Transfuse 2 units of packed cells. Although the patient has chronic anemia his hemoglobin is 6.5 today and transfusion will assist with oxygenation as well as renal perfusion -Start tube feeds today for nutritional support -Patient has an elevated BUN/creatinine with marginal urine output, he is on a large amount of diuretics at home, consider nephrology consult if this does not improve Attestation Critical care time 40 minutes Andrea Banks MD Aug 01, 2017 13:23
[2017-08-01] MEDS ORDERED: cloNIDine HCL 0.2 MG/24 HR PATCH T-DERMAL SCH ×3 (13:30→20:00)
--- NOTE | 2017-08-01 14:16 | RADRPT ---
EXAM DATE/TIME: 08/01/2017 13:51 [facility] COMPARISON: CT BRAIN W/O CONTRAST, July 31, 2017, 4:27. INDICATIONS : Subdural hematoma RADIATION DOSE: 49.70 CTDIvol (mGy) MEDICAL HISTORY : Cardiovascular disease. Hypertension. Diabetes,anemia SURGICAL HISTORY : None. ENCOUNTER: Subsequent ACUITY: 2 days PAIN SCALE: Non-responsive LOCATION: cranial TECHNIQUE: Multiple contiguous axial images were obtained of the head. Using automated exposure control and adj ustment of the mA and/or kV according to patient size, radiation dose was kept as low as reasonably a chievable to obtain optimal diagnostic quality images. DICOM format image data is available electro nically for review and comparison. FINDINGS: The appearance is stable from the prior exam. Again seen are bilateral subdural hematomas. The left i s larger than the right. There is intraventricular hemorrhage layering within both lateral ventricles . Intraparenchymal hemorrhage is seen involving the tip of the right temporal lobe. Subdural hemorrha ge is seen with immediate adjacent intraparenchymal hemorrhage involving the left temporal lobe adjac ent to the Yogi apex. The no hydrocephaly. No new sites of hemorrhage. Intracranial pressure monito ring device observed on the right. Mucosal thickening throughout the paranasal sinuses bilaterally. C alvarium is intact. CONCLUSION: 1. Stable intraparenchymal, subdural, and intraventricular hemorrhage. No midline shift or new sites of hemorrhage. Pepe Segura Jr., MD on August 01, 2017 at 14:11 Board Certified Radiologist. This report was verified electronically.
[2017-08-01 15:00] LABS: BILIRUBIN, URINE NEG (NEG); BLOOD, URINE MOD (NEG); GLUCOSE,URINE NEG (NEG); HYALINE CAST, URINE 6 /lpf (RARE); KETONE, URINE NEG (NEG); MUCUS URINE FEW /lpf (OCC); NITRITE,URINE NEG (NEG); SQUAMOUS EPITHELIAL CELL URINE 1 /hpf (0-5); URINE COLOR YELLOW (YELLW/STRAW); URINE LEUKOCYTE ESTERASE LARGE (NEG)
[2017-08-01] MEDS: MULTIVITAMIN INJ 10 ML, THIAMINE INJ 100 MG, FOLIC ACID INJ 1 MG in SODIUM CHLORID 0.9%... IV SCH (15:19)
--- NOTE | 2017-08-01 15:24 | RADRPT ---
EXAM DATE/TIME: 08/01/2017 14:46 [facility] COMPARISON: No previous studies available for comparison. INDICATIONS : Increased BUN and Creatinine. MEDICAL HISTORY : Hypertension. Congestive heart failure. Hypercholesterolemia. Diabetes. Skin Cancer. SURGICAL HISTORY : Fem-Pop Bypass Graft. ENCOUNTER: Initial ACUITY: 1 day PAIN SCORE: Nonresponsive. LOCATION: Bilateral flank MEASUREMENTS: RIGHT KIDNEY: 11.1 x 5.9 x 6.1 cm LEFT KIDNEY: 9.4 x 4.6 x 5.0 cm FINDINGS: RIGHT KIDNEY: Renal cortex is normal in thickness and echotexture. No hydronephrosis, stone, or mass. LEFT KIDNEY: Renal cortex is normal in thickness and echotexture. No hydronephrosis, stone, or mass. BLADDER: Within normal limits given the degree of distension. CONCLUSION: There is no hydronephrosis or stone. Bilateral pleural effusions.. Angel Brown MD FACR on August 01, 2017 at 15:23 Board Certified Radiologist. This report was verified electronically.
[2017-08-01] MEDS ORDERED: BISACODYL 10 MG SUPP RECTAL PRN (16:15)
[2017-08-01] MEDS: LACTULOSE SYRUP 20 GM/30 ML CUP PO SCH (17:40)
[2017-08-01] MEDS ORDERED: REMOVE OLD CATAPRES (CLONIDINE) PATCH T-DERMAL SCH (20:00)
[2017-08-01] MEDS: DOCUSATE SODIUM 50 MG/SENNA 8.6 MG TAB PO SCH (20:19)
[2017-08-01] MEDS: TERAZOSIN HCL 5 MG CAP PO SCH (20:31)
[2017-08-02] VITALS (18 sets, daily range): BP systolic 139–179; BP diastolic 59–77; PULSE 60–85; RESP 12–14; TEMP 97.7–99.5; O2SAT 96–100
[2017-08-02] MEDS: CHLOROTHIAZIDE SOD 500 MG VIAL IV SCH ×2 (00:55→13:15)
[2017-08-02] MEDS: PROPOFOL 1000 MG/100 ML IV PRN ×4 (01:23→23:44)
[2017-08-02] MEDS: CHLORHEXIDINE GLUCONATE 2 % 1 PACK (2 CLOTHS) TOP SCH (04:00)
[2017-08-02] MEDS: RESP: ALBUTEROL 2.5 MG/IPRATROPIUM 0.5 MG NEB (SCH) NEB ×5 (04:10→21:56)
--- NOTE | 2017-08-02 05:10 | RADRPT ---
EXAM DATE/TIME: 08/02/2017 04:29 [facility] COMPARISON: CHEST SINGLE AP, August 01, 2017, 4:52. INDICATIONS : Short of breath. MEDICAL HISTORY : None. SURGICAL HISTORY : None. ENCOUNTER: Subsequent ACUITY: 4 - 6 days PAIN SCORE: Non-responsive. LOCATION: Bilateral chest FINDINGS: Portable AP view of the chest demonstrates stable enlargement of the cardiac silhouette with calcific ation of the aorta. Endotracheal tube and nasogastric tube remain present. Multiple EKG lines overlie the patient. There are persistent moderate-sized bilateral pleural-parenchymal opacities. No pneumot horax is seen. CONCLUSION: Stable chest x-ray with bilateral pleural effusions with associated volume loss and/or airspace conso lidation. Ra Pulliam MD on August 02, 2017 at 5:08 Board Certified Radiologist. This report was verified electronically.
[2017-08-02 05:13] LABS: COMPLEMENT C3 100 MG/DL (90-180); COMPLEMENT C4 20 MG/DL (10-40); PHOSPHORUS 6.8 MG/DL (2.5-4.9)
[2017-08-02 05:24] LABS: ALBUMIN 2.5 GM/DL (3.4-5.0); ALKALINE PHOSPHATASE 138 U/L (45-117); ALT (GPT) 9 U/L (12-78); AST (GOT) 9 U/L (15-37); BICARBONATE 16.9 MEQ/L (21.0-32.0); BLOOD UREA NITROGEN 50 MG/DL (7-18); CALCIUM 7.7 MG/DL (8.5-10.1); CHLORIDE 118 MEQ/L (98-107); CREATININE 3.12 MG/DL (0.60-1.30); GLOMERULAR FILTRATION RATE 19 ML/MIN (>89); GLUCOSE,RANDOM 133 MG/DL (74-106); SODIUM (NA) 145 MEQ/L (136-145); TOTAL BILIRUBIN ADULT 0.7 MG/DL (0.2-1.0); TOTAL PROTEIN 5.8 GM/DL (6.4-8.2)
[2017-08-02 05:30] LABS: % SATURATION IRON PROFILE 10.6 % (20-50); ALBUMIN 2.7 GM/DL (3.4-5.0); BICARBONATE 17.2 MEQ/L (21.0-32.0); BLOOD UREA NITROGEN 49 MG/DL (7-18); CALCIUM 7.7 MG/DL (8.5-10.1); CHLORIDE 115 MEQ/L (98-107); CREATININE 3.17 MG/DL (0.60-1.30); GLOMERULAR FILTRATION RATE 19 ML/MIN (>89); GLUCOSE,RANDOM 137 MG/DL (74-106); IRON (FE) 15 MCG/DL (65-175); SODIUM (NA) 145 MEQ/L (136-145); TOTAL IRON BINDING CAPACITY 141 MCG/DL (250-450)
[2017-08-02] MEDS: INSULIN ASPART SUPPLEMENTAL SCALE SQ SCH ×4 (05:32→18:00)
[2017-08-02] MEDS ORDERED: SODIUM BICARBONATE 8.4% SOLN 50 MEQ/50 ML VIAL IV SCH (05:45)
[2017-08-02 05:59] LABS: AUTOMATED NEUTROPHIL # 9.6 TH/MM3 (1.8-7.7); BASOPHIL % 0.3 % (0.0-2.0); EOSINOPHIL # 0.1 TH/MM3 (0-0.4); EOSINOPHIL % 0.7 % (0.0-4.0); HEMATOCRIT 22.8 % (39.0-51.0); HEMOGLOBIN 7.6 GM/DL (13.0-17.0); LYMPHOCYTE # 0.6 TH/MM3 (1.0-4.8); MEAN CELL VOLUME 86.9 FL (80.0-100.0); MEAN CORPUSCULAR HEMOGLOBIN 29.2 PG (27.0-34.0); MEAN CORPUSCULAR HGB CONC 33.6 % (32.0-36.0); MEAN PLATELET VOLUME 10.1 FL (7.0-11.0); MONO % 12.7 % (0.0-8.0); MONOCYTE # 1.5 TH/MM3 (0-0.9); NEUT % 81.3 % (16.0-70.0); PLATELET COUNT 117 TH/MM3 (150-450); RED BLOOD COUNT 2.62 MIL/MM3 (4.50-5.90); RED CELL DISTRIBUTION WIDTH 26.5 % (11.6-17.2); WHITE BLOOD COUNT 11.9 TH/MM3 (4.0-11.0)
[2017-08-02 06:44] LABS: ACANTHOCYTES OCC (NORMAL); KERATOCYTES OCC (NORMAL); OVALOCYTES 1+ (NORMAL); TEARDROP RBCS 1+ (NORMAL)
[2017-08-02] MEDS: niCARdipine INJ 25 MG in SODIUM CHLOR 0.9% 250 ML INJ 240 ML IV PRN ×2 (08:00→19:28)
--- NOTE | 2017-08-02 08:18 | HHI.PR ---
Neuropsych Emotional Emotional: UnabletoAssess: Emotional, Anxious/Fearful, Depressed/Sad, Hostile/ Resentful, Irritable/Angry/Frustrate, Labile, Constricted/Blunted Behavior Behavior: Unable to Asses: Behavior, Coping/Acceptance, Cooperative w/ Treatment, Motivation, Frustration Tolerance/[place], Impulsive/Agitated, Suicidal/ Homicidal Risk Cognitive Cognitive: Unable to Asses: Cognitive, Attention/Concentration, Confused/ Orientation, Insight/Awareness, Judgement/Problem-Solving, Memory Psychosocial Psychosocial: Intact: Psychosocial, Family/Other Adjustment, Realistic Expectation, Unable to Asses: Self-Esteem/Confidence Progress Notes/Response to Tx Contents of Sessions: Adjustment, Level of Consciousness Time with Patient: 15 minutes Premorbid psychological status Premorbid Cognitive, Emotional and Behavioral Status: Tenuous. The patient has high school] years of education and is retired. The patient has no prior psychiatric difficulties, as described above. Substance abuse history is unremarkable. Behavioral Reactions of Patient and Family/Support System: Stable. The patient s family is experiencing ongoing issues of adjustment given the nature of the injury, and this aspect of recovery will require ongoing monitoring. Emotional/Behavioral Status of Patient and Family/Support System: Stable. Pertinent issues, if appropriate to this patients clinical care, are described in detail above. Maximizing acute care outcome It is recommended that the patient be monitored for emergent behavioral impulsivity as the medical condition evolves. This patients neuropathological challenges may limit his rehabilitation potential going forward, and these challenges will require specialized therapeutic skills to maximize outcome. Additionally, the patients family is experiencing ongoing issues of adjustment given the traumatic nature of the injury, and they may benefit from ongoing psychological assistance. At this point in the recovery process, the patient does not have cognitive capacity as the patient is unable to understand a situation and its likely consequences, nor is he able to manipulate information rationally. Cognitive capacity will be assessed throughout the recovery process. Anticipated Problems Ongoing areas of concern will include behavioral impulsivity, lack of insight and judgment, which is expected to improve with time and treatment. Presently , the patient is intubated and sedated. Treatment Plan This clinician will continue to follow with you throughout the course of this patients critical care treatment, and I will be available to meet with the patients family/support system to facilitate their understanding and the ongoing care of their family member. The goals of neuropsychological intervention shall be both educational and supportive to the family/support system as is deemed clinically appropriate. [facility] Level: I:No response-total assistance Impression 82 y/o male s/p TBI 2T fall on 07/30/2017. Diagnosis: (1) Major neurocognitive disorder as late effect of traumatic brain injury without behavioral disturbance Progress Note Narrative PTD 3. The patient remains intubated and sedated. Follow-up CT shows worsening bleeds, but his ICP has been stable. Given his age, it is unlikely that this patient will have an optimal outcome from a neurobehavioral standpoint. He remains at [facility]. I will follow. Micah Sotelo PhD Aug 02, 2017 8:18 am
[2017-08-02] MEDS: DOCUSATE SODIUM 50 MG/SENNA 8.6 MG TAB PO SCH ×2 (09:00→21:34)
[2017-08-02] MEDS: levETIRAcetam INJ 500 MG in SODIUM CHLORIDE 0.9% INJ 100 ML IV SCH ×2 (09:00→21:35)
[2017-08-02] MEDS: LACTULOSE SYRUP 20 GM/30 ML CUP PO SCH (10:32)
[2017-08-02] MEDS: hydrALAZINE HCL 100 MG TAB PO SCH ×2 (10:33→21:34)
[2017-08-02] MEDS: FUROSEMIDE 40 MG/4 ML VIAL IV PUSH SCH ×2 (10:33→17:12)
[2017-08-02] MEDS: METOPROLOL TARTRATE 25 MG TAB PO SCH ×2 (10:33→21:34)
[2017-08-02] MEDS: FAMOTIDINE 20 MG TAB PO SCH ×2 (10:33→21:35)
[2017-08-02] MEDS: PRAVASTATIN SOD 40 MG TAB PO SCH (10:33)
[2017-08-02] MEDS: CHLORHEXIDINE 0.12% (ORAL KIT) 15 ML CUP MT SCH ×2 (10:34→20:00)
--- NOTE | 2017-08-02 11:17 | RADRPT ---
EXAM DATE/TIME: 08/02/2017 10:40 [facility] COMPARISON: No previous studies available for comparison. INDICATIONS : Deep vein thrombosis. MEDICAL HISTORY : Hypertension. Congestive heart failure. Hypercholesterolemia. Diabetes. Skin cancer. SURGICAL HISTORY : Fem-pop bypass graft. ENCOUNTER: Initial ACUITY: 1 day PAIN SCORE: Non-responsive LOCATION: Bilateral leg. TECHNIQUE: Venous ultrasound of the left and right leg was performed from the inguinal ligament to the proximal calf. Real-time, color Doppler and spectral tracing, compression and augmentation techniques were us ed. FINDINGS: RIGHT LEG: There is normal compressibility of the deep venous system from the inguinal region to the proximal ca lf. No echogenic clot is seen in the lumen of the common femoral, femoral, popliteal, and posterior tibial veins. There is a normal response of the venous system to proximal and distal augmentation an d respiration. LEFT LEG: There is normal compressibility of the deep venous system from the inguinal region to the proximal ca lf. No echogenic clot is seen in the lumen of the common femoral, femoral, popliteal, and posterior tibial veins. There is a normal response of the venous system to proximal and distal augmentation an d respiration. CONCLUSION: No evidence of DVT. Danyel Bear MD on August 02, 2017 at 11:15 Board Certified Radiologist. This report was verified electronically.
[2017-08-02] MEDS: fentaNYL 2,500 MCG/NS 250 ML IV PRN (13:12)
--- NOTE | 2017-08-02 13:38 | HHI.NPPN ---
Subjective History of Present Illness This patient is an 82-year-old male who unfortunately cannot provide any history secondary to head injury, intubated status on a ventilator. History obtained from records and from his daughter. Limited history available. Family patient has a history suggesting peripheral vascular disease, congestive heart failure, chronic lower extremity edema with dyspnea, chronic renal sufficiency?. According to the patient's daughter he was hospitalized back in 2013 at [facility]. Developed a ruptured appendix post colonoscopy subsequently developing acute renal failure and requiring laparotomy. According to the patient's daughter he was on dialysis temporarily. Not following up with a surveyor hydrographic routinely in recent times. They cannot recall name of his primary care physician currently also. Patient apparently fell short distance from a ladder and hit his head and subsequently has been diagnosed as having a subdural as well as subarachnoid hemorrhage. Creatinine was elevated at the time of presentation at 1.5 and chest x-ray showed evidence of congestive heart failure and the patient had a hemoglobin that was only 7.4. Echocardiogram performed July 31, 2017 revealed an ejection fraction of 50-55%. Patient's albumin on presentation his low with a low corrected calcium 7.8. Objective Data Data Vital Signs Date Time Temp Pulse Resp B/P (MAP) Pulse Ox O2 Delivery O2 Flow Rate FiO2 08/02/17 12:00 100 08/02/17 12:00 62 08/02/17 10:43 98 100 08/02/17 10:00 78 08/02/17 08:00 99.3 72 12 177/71 (106) 96 08/02/17 08:00 50 08/02/17 08:00 75 08/02/17 06:00 73 08/02/17 04:10 96 50 08/02/17 04:00 63 08/02/17 04:00 50 08/02/17 04:00 97.7 63 14 143/64 (90) 98 08/02/17 02:00 66 08/02/17 00:59 100 40 08/02/17 00:00 65 08/02/17 00:00 99.0 65 12 139/64 (89) 99 08/02/17 00:00 40 08/01/17 22:00 66 08/01/17 20:21 99 40 08/01/17 20:00 63 08/01/17 20:00 40 08/01/17 20:00 99.5 63 20 142/67 (92) 99 08/01/17 18:00 57 08/01/17 16:00 98.2 62 12 144/65 (91) 99 08/01/17 16:00 62 08/01/17 16:00 40 08/01/17 15:13 99 40 08/01/17 14:08 100 100 08/01/17 14:00 59 -: 08/02/17 0427 08/02/17 0427 Physical Exam General Appearance: Obese Appearance Remarks ET tube in place. Eyes Eye Exam: Sclera White Pulmonary Resp Exam: Breath Sounds Equal, No Distress, Decreased Bases Cardiology CV Exam: Regular, Normal Sinus Rhythm Gastrointestinal/Abdomen GI Exam: Non-Tender, Distended Extremeties Extremities Exam: Moderate Edema, Pitting Edema, Dependent Edema (diffuse edema involving all extremities, hips and dependent torso.) Assessment/Plan Discussed Condition With: Relative Problem List: (1) Acute kidney insufficiency ICD Codes: N28.9 - Disorder of kidney and ureter, unspecified Status: Acute Plan: Minimal response to diuretic therapy and still with significant fluid retention at this point in time. Renal indices stable since yesterday but still indicating severe renal insufficiency. I contacted his primary care physician's office and his creatinine was apparently 1.27 with a BUN of 20 back in Sep, 2016. Apparently has a history of diabetes mellitus, hypertension, systolic CHF, peripheral vascular disease as well as CKD. Increased diuretic therapy and hope of improving his volume status. If azotemia continues to worsen and or no improvement made in the patient's volume status we may have to consider dialytic support. Relative by bedside indicated that patient had a living will which may have indicated that he did not want dialytic support. I recommended preliminary discussion amongst the family regarding the question of dialysis if it has to be considered. (2) CKD (chronic kidney disease) stage 3, GFR 30-59 ml/min ICD Codes: N18.3 - Chronic kidney disease, stage 3 (moderate) Plan: Baseline renal function unknown. Patient currently has a history of chronic lower extremity edema and dyspnea. Unfortunately previous records not available but I suspect that the patient has a component of chronic CHF. 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 Also previous history of acute renal failure may have resulted in significant deterioration in his baseline renal function but those records are not available to me currently. (3) Congestive heart failure ICD Codes: I50.9 - Heart failure, unspecified Plan: Continue with necessary diuresis. Increase furosemide and Diuril as ordered. Monitor response. Most likely has some degree of diastolic dysfunction as EF was reported as being 50-55%. (4) Edema due to congestive heart failure ICD Codes: I50.9 - Heart failure, unspecified Plan: In addition patient does have evidence of hypoalbuminemia. Need to determine as the patient has significant proteinuria. Check protein/ creatinine ratio urine. (5) Hypocalcemia ICD Codes: E83.51 - Hypocalcemia Plan: Check vitamin D levels. (6) Anemia ICD Codes: D64.9 - Anemia, unspecified Problem Qualifiers (1) Congestive heart failure: Michell Chavez MD Aug 02, 2017 13:38
--- NOTE | 2017-08-02 13:58 | HHI.NSPN ---
(Kathe Murphy) Note Status Status: Progress Note (Kathe Murphy) Interval History Interval History This is an 82-year-old gentleman who fell backwards off of a ladder approximately 10 feet. He underwent a brief round of CPR but was found to be spontaneously breathing so it was stopped patient was brought in the trauma bay hypertensive and confused he was intubated in the trauma bay. No seizure activity reported. No tongue biting. No incontinence of stool or urine. No tonic-clonic movements. He had unequal pupils and a coffee-ground emesis prior to intubation. He was upgraded to a level I trauma alert. He was resuscitated according to the ATLS protocol and full trauma workup was carried down. He was found to have right subarachnoid hemorrhage as well as subdural hematoma. He was given 2 units of platelets that for his platelet insufficiency due to Plavix. He was moving his extremities. Neurosurgical consultation was requested 07/31/17. Remains intubated and sedated. ICP monitor in place. A follow-up CT of the brain was obtained 08/01/17: intubated and sedated, ICPs below 10. 08/02/17: intubated, sedated. ICPs stable. f/u CT Brain yesterday showed slight increase in size of left subdural hematoma per Dr. Horne' review. decreasing renal function - nephrology consulted, also now with PVCs. (Kathe Murphy) Labs, Micro, & Vital Signs Results Date Time Temp Pulse Resp B/P (MAP) Pulse Ox O2 Delivery O2 Flow Rate FiO2 08/02/17 12:00 99.5 62 12 140/59 (86) 98 08/02/17 12:00 100 08/02/17 12:00 62 08/02/17 10:43 98 100 08/02/17 10:00 78 08/02/17 08:00 99.3 72 12 177/71 (106) 96 08/02/17 08:00 50 08/02/17 08:00 72 177/71 08/02/17 08:00 75 08/02/17 06:00 73 08/02/17 04:10 96 50 08/02/17 04:00 63 08/02/17 04:00 50 08/02/17 04:00 97.7 63 14 143/64 (90) 98 08/02/17 02:00 66 08/02/17 00:59 100 40 08/02/17 00:00 65 08/02/17 00:00 99.0 65 12 139/64 (89) 99 08/02/17 00:00 40 08/01/17 22:00 66 08/01/17 20:21 99 40 08/01/17 20:00 63 08/01/17 20:00 40 08/01/17 20:00 99.5 63 20 142/67 (92) 99 08/01/17 18:00 57 08/01/17 16:00 98.2 62 12 144/65 (91) 99 08/01/17 16:00 62 08/01/17 16:00 40 08/01/17 15:13 99 40 08/01/17 14:08 100 100 08/01/17 14:00 59 08/03/17 07:00 Intake Total 355 ml Balance 355 ml Constitutional Vital Signs Date Time Temp Pulse Resp B/P (MAP) Pulse Ox O2 Delivery O2 Flow Rate FiO2 08/02/17 12:00 99.5 62 12 140/59 (86) 98 08/02/17 12:00 100 08/02/17 12:00 62 08/02/17 10:43 98 100 08/02/17 10:00 78 08/02/17 08:00 99.3 72 12 177/71 (106) 96 08/02/17 08:00 50 08/02/17 08:00 72 177/71 08/02/17 08:00 75 08/02/17 06:00 73 08/02/17 04:10 96 50 08/02/17 04:00 63 08/02/17 04:00 50 08/02/17 04:00 97.7 63 14 143/64 (90) 98 08/02/17 02:00 66 08/02/17 00:59 100 40 08/02/17 00:00 65 08/02/17 00:00 99.0 65 12 139/64 (89) 99 08/02/17 00:00 40 08/01/17 22:00 66 08/01/17 20:21 99 40 08/01/17 20:00 63 08/01/17 20:00 40 08/01/17 20:00 99.5 63 20 142/67 (92) 99 08/01/17 18:00 57 08/01/17 16:00 98.2 62 12 144/65 (91) 99 08/01/17 16:00 62 08/01/17 16:00 40 08/01/17 15:13 99 40 08/01/17 14:08 100 100 08/01/17 14:00 59 08/03/17 07:00 Intake Total 355 ml Balance 355 ml (Kathe Murphy) Review of Systems ROS Limitations: Intubated (Kathe Murphy) Physical Exam Mr Alonzo is intubated and well sedated. very minimal eyes opening noted, not following commands. Right ICP monitor in place, ICPs = 6-8 Cranial Nerves: Pupils right 2mm, left 3 mm round. Eyes appear conjugated. Cervical Spine: soft, supple Motor: His muscle tone and bulk are normal. not following commands for testing Reflexes: bilateral plantar flexion response. Sensory: minimal response to painful stimuli Cerebellar: cannot be adequately assessed due to the patient's neurological condition. Heart: regular rate, rhythm Resp: clear, mechanically ventilated (Kathe Murphy) Mr Alonzo is intubated and well sedated. very minimal eyes opening noted, not following commands. Right ICP monitor in place, ICPs = 6-8 Cranial Nerves: Pupils right 2mm, left 3 mm round. Eyes appear conjugated. Cervical Spine: soft, supple Motor: His muscle tone and bulk are normal. not following commands for testing Reflexes: bilateral plantar flexion response. Sensory: minimal response to painful stimuli Cerebellar: cannot be adequately assessed due to the patient's neurological condition. Heart: regular rate, rhythm Resp: clear, mechanically ventilated (Les Horne MD) Medications Current Medications Current Medications Medications (Trade) Dose Ordered Sig/Juliet Route PRN Reason Start Time Stop Time Status Last Admin Dose Admin Sodium Chloride (NS Flush) 2 ml UNSCH PRN IV FLUSH FLUSH AFTER USING IV ACCESS 07/30/17 12:45 Ondansetron HCl (Zofran Inj) 4 mg Q6H PRN IV PUSH NAUSEA OR VOMITING 07/30/17 12:45 Miscellaneous Information 1 Q361D XX 07/30/17 12:45 Chlorhexidine Gluconate (Chlorhexidine 2% Cloth) 3 pack Taper DAILY@04 TOP 07/31/17 04:00 07/27/18 03:59 08/02/17 04:00 Chlorhexidine Gluconate (Chlorhexidine 2% Cloth) 3 pack UNSCH PRN TOP HYGIENIC CARE 07/30/17 12:45 Chlorhexidine Gluconate (Peridex 0.12% Liq) 15 ml BID@08,20 MT 07/30/17 20:00 08/02/17 10:34 Albuterol/ Ipratropium (Duoneb Neb) 1 ampule Q6HR NEB NEB 07/30/17 16:00 08/02/17 10:42 Fentanyl Citrate 250 ml @ 5 mls/hr TITRATE PRN IV Sedation 07/30/17 13:30 08/02/17 13:12 Propofol 100 ml @ 2.64 mls/hr TITRATE PRN IV SEDATION 07/30/17 13:30 08/02/17 06:53 Famotidine (Pepcid) 10 mg BID PO 07/30/17 21:00 08/02/17 10:33 Nicardipine HCl 25 mg/Sodium Chloride 250 ml @ 50 mls/hr TITRATE PRN IV Blood pressure management 07/30/17 16:15 08/02/17 08:00 Pravastatin Sodium (Pravachol) 40 mg DAILY PO 07/31/17 09:00 08/02/17 10:33 Metoprolol Tartrate (Lopressor) 25 mg Q12HR PO 07/31/17 09:00 08/02/17 10:33 Dextrose (D50w (Vial) Inj) 50 ml UNSCH PRN IV PUSH HYPOGLYCEMIA-SEE COMMENTS 07/31/17 07:45 Glucagon (Glucagon Inj) 1 mg UNSCH PRN OTHER HYPOGLYCEMIA-SEE COMMENTS 07/31/17 07:45 Terazosin HCl (Hytrin) 10 mg HS PO 07/31/17 21:00 08/01/17 20:31 Hydralazine HCl (Apresoline) 100 mg Q12HR PO 07/31/17 09:00 08/02/17 10:33 Levetriacetam 500 mg/Sodium Chloride 105 ml @ 420 mls/hr Q12HR IV 08/01/17 10:00 08/02/17 09:00 Miscellaneous Information 1 Q7D T-DERMAL 08/08/17 16:00 Senna/Docusate Sodium (Jackelyn-Colace) 1 tab BID PO 08/01/17 21:00 08/02/17 09:00 Lactulose (Lactulose Liq) 30 ml DAILY PO 08/01/17 16:15 08/02/17 10:32 Bisacodyl (Dulcolax Supp) 10 mg DAILY PRN RECTAL Constipation 08/01/17 16:15 Clonidine (Catapres-Tts 0.2 Mg Patch.7d) 1 patch Q7D T-DERMAL 08/01/17 20:00 08/01/17 20:31 Miscellaneous Information 1 Q7D T-DERMAL 08/01/17 20:00 Insulin Aspart (NovoLOG SUPPLEMENTAL SCALE) 1 Q6HR SQ 08/01/17 18:00 Chlorothiazide Sodium (Diuril Inj) 500 mg Q12H IV 08/03/17 01:00 Furosemide (Lasix Inj) 80 mg BID@09,18 IV PUSH 08/02/17 18:00 (Kathe Murphy) Current Medications Current Medications Ondansetron HCl (Zofran Inj) 4 mg STK-MED ONCE .ROUTE ; Start 07/30/17 at 11:55; Stop 07/30/17 at 11:56; Status DC Propofol 100 ml @ As Directed STK-MED ONCE .ROUTE ; Start 07/30/17 at 12:04; Stop 07/30/17 at 12:05; Status DC Nicardipine HCl (Cardene Inj) 25 mg STK-MED ONCE .ROUTE ; Start 07/30/17 at 12:08 ; Stop 07/30/17 at 12:09; Status DC Sodium Chloride 1,000 ml @ 60 mls/hr [id number] IV Last administered on 08/01/17at 08:45; Start 07/30/17 at 12:31; Stop 08/01/17 at 11:50; Status DC Sodium Chloride (NS Flush) 2 ml UNSCH PRN IV FLUSH FLUSH AFTER USING IV ACCESS Last administered on 08/03/17at 09:43; Start 07/30/17 at 12:45 Ondansetron HCl (Zofran Inj) 4 mg Q6H PRN IV PUSH NAUSEA OR VOMITING; Start 07/30/17 at 12:45 Multivitamins 10 ml/Thiamine HCl 100 mg/Folic Acid 1 mg/Sodium Chloride 511.2 ml @ 125 mls/hr Q24H IV Last administered on 08/01/17at 15:19; Start 07/30/17 at 15:00; Stop 08/01/17 at 19:06; Status DC Docusate Sodium (Colace) 100 mg BID PO Last administered on 08/01/17at 08:44; Start 07/30/17 at 21:00; Stop 08/01/17 at 16:11; Status DC Magnesium Hydroxide (Milk Of Magnesia Liq) 30 ml Q6H PRN PO CONSTIPATION; Start 07/30/17 at 12:45; Stop 08/01/17 at 16:11; Status DC Miscellaneous Information 1 Q361D XX ; Start 07/30/17 at 12:45 Chlorhexidine Gluconate (Chlorhexidine 2% Cloth) 3 pack Taper DAILY@04 TOP Last administered on 08/04/17at 04:05; Start 07/31/17 at 04:00; Stop 07/27/18 at 03 :59 Chlorhexidine Gluconate (Chlorhexidine 2% Cloth) 3 pack UNSCH PRN TOP HYGIENIC CARE; Start 07/30/17 at 12:45 Propofol 100 ml @ 0 mls/hr TITRATE PRN IV SEDATION; Start 07/30/17 at 13:00; Stop 07/30/17 at 13:30; Status DC Chlorhexidine Gluconate (Peridex 0.12% Liq) 15 ml BID@08,20 MT Last administered on 08/04/17at 08:15; Start 07/30/17 at 20:00 Propofol 100 ml @ 0 mls/hr TITRATE PRN IV SEDATION; Start 07/30/17 at 13:00; Stop 07/30/17 at 13:00; Status DC Fentanyl Citrate 250 ml TITRATE PRN IV SEDATION; Start 07/30/17 at 13:00; Stop 07/30/17 at 13:00; Status DC Fentanyl Citrate 250 ml TITRATE PRN IV SEDATION; Start 07/30/17 at 13:00; Stop 07/30/17 at 13:30; Status DC Albuterol/ Ipratropium (Duoneb Neb) 1 ampule Q6HR NEB NEB Last administered on 08/02/17at 20:40; Start 07/30/17 at 16:00; Stop 08/02/17 at 20:55; Status DC Diphtheria/ Tetanus/Acell Pertussis (Boostrix Inj) 0.5 ml STK-MED ONCE IM ; Start 07/30/17 at 12:58; Stop 07/30/17 at 12:59; Status DC Etomidate (Amidate Inj) 20 mg STK-MED ONCE .ROUTE ; Start 07/30/17 at 13:01; Stop 07/30/17 at 13:02; Status DC Succinylcholine Chloride (Quelicin Inj) 200 mg STK-MED ONCE .ROUTE ; Start at 13:01; Stop 07/30/17 at 13:02; Status DC Fentanyl Citrate 250 ml @ 5 mls/hr TITRATE PRN IV Sedation Last administered on 08/03/17at 16:56; Start 07/30/17 at 13:30 Propofol 100 ml @ 2.64 mls/hr TITRATE PRN IV SEDATION Last administered on 08/04at 12:43; Start 07/30/17 at 13:30 Famotidine (Pepcid) 10 mg BID PO Last administered on 08/04/17at 08:18; Start 07/30/17 at 21:00 Nicardipine HCl 25 mg/Sodium Chloride 250 ml @ 50 mls/hr TITRATE PRN IV Blood pressure management Last administered on 08/04/17at 12:10; Start 07/30/17 at 16:15 Spironolactone (Aldactone) 25 mg DAILY PO Last administered on 08/01/17at 08:44; Start 07/31/17 at 09:00; Stop 08/01/17 at 09:54; Status DC Pravastatin Sodium (Pravachol) 40 mg DAILY PO Last administered on 08/04/17at 08: 18; Start 07/31/17 at 09:00 Metoprolol Tartrate (Lopressor) 25 mg Q12HR PO Last administered on 08/03/17at 20 :33; Start 07/31/17 at 09:00; Stop 08/04/17 at 09:36; Status DC Hydralazine HCl (Apresoline) 25 mg Q12HR PO Last administered on 07/31/17at 07:42 ; Start 07/31/17 at 09:00; Stop 07/31/17 at 09:00; Status DC Furosemide (Lasix Inj) 40 mg BID@09,18 IV PUSH Last administered on 08/02/17at 10 :33; Start 07/31/17 at 09:00; Stop 08/02/17 at 13:29; Status DC Dextrose (D50w (Vial) Inj) 50 ml UNSCH PRN IV PUSH HYPOGLYCEMIA-SEE COMMENTS; Start 07/31/17 at 07:45 Glucagon (Glucagon Inj) 1 mg UNSCH PRN OTHER HYPOGLYCEMIA-SEE COMMENTS; Start 07/31/17 at 07:45 Insulin Aspart (NovoLOG SUPPLEMENTAL SCALE) 1 Q6H SQ ; Start 07/31/17 at 07:45; Stop 08/01/17 at 17:31; Status DC Sodium Chloride 250 ml @ 15 mls/hr ONCE ONCE IV Last administered on at 10:55; Start 07/31/17 at 08:15; Stop 08/01/17 at 00:54; Status DC Terazosin HCl (Hytrin) 10 mg HS PO Last administered on 08/03/17at 20:32; Start 07/31/17 at 21:00 Hydralazine HCl (Apresoline) 100 mg Q12HR PO Last administered on 08/04/17at 08: 18; Start 07/31/17 at 09:00 Levetriacetam 500 mg/Sodium Chloride 105 ml @ 420 mls/hr Q12HR IV Last administered on 08/04/17at 08:17; Start 08/01/17 at 10:00 Dextrose 1,000 ml @ 42 mls/hr [id number] IV Last administered on 08/01/17at 13:09; Start 08/01/17 at 12:00; Stop 08/01/17 at 16:51; Status DC Chlorothiazide Sodium (Diuril Inj) 250 mg Q12H IV Last administered on at 13:15; Start 08/01/17 at 13:00; Stop 08/02/17 at 13:29; Status DC Clonidine (Catapres-Tts 0.2 Mg Patch.7d) 1 patch Q7D T-DERMAL ; Start 08/01/17 at 13:30; Stop 08/01/17 at 15:09; Status DC Clonidine (Catapres-Tts 0.2 Mg Patch.7d) 1 patch Q7D T-DERMAL ; Start 08/01/17 at 16:00; Stop 08/01/17 at 17:30; Status DC Miscellaneous Information 1 Q7D T-DERMAL ; Start 08/08/17 at 16:00 Senna/Docusate Sodium (Jackelyn-Colace) 1 tab BID PO Last administered on 08/04/17at 08:18; Start 08/01/17 at 21:00 Lactulose (Lactulose Liq) 30 ml DAILY PO Last administered on 08/04/17at 08:17; Start 08/01/17 at 16:15 Bisacodyl (Dulcolax Supp) 10 mg DAILY PRN RECTAL Constipation; Start 08/01/17 at 16:15 Clonidine (Catapres-Tts 0.2 Mg Patch.7d) 1 patch Q7D T-DERMAL Last administered on 08/01/17at 20:31; Start 08/01/17 at 20:00 Miscellaneous Information 1 Q7D T-DERMAL ; Start 08/01/17 at 20:00 Insulin Aspart (NovoLOG SUPPLEMENTAL SCALE) 1 Q6HR SQ ; Start 08/01/17 at 18:00 Sodium Bicarbonate (Sodium Bicarbonate 8.4% Inj) 50 meq UNSCH X1 IV Last administered on 08/02/17at 05:41; Start 08/02/17 at 05:45; Stop 08/02/17 at 08:20; Status DC Chlorothiazide Sodium (Diuril Inj) 500 mg Q12H IV Last administered on at 12:44; Start 08/03/17 at 01:00 Furosemide (Lasix Inj) 80 mg BID@,18 IV PUSH Last administered on 08/04/17at 08 :17; Start 08/02/17 at 18:00 Albuterol/ Ipratropium (Duoneb Neb) 1 ampule Q6HR NEB NEB Last administered on 08/04/17at 08:19; Start 08/02/17 at 22:00 Metoprolol Tartrate (Lopressor Inj) 5 mg Q6H IV PUSH Last administered on at 10:13; Start 08/04/17 at 10:00 Hydralazine HCl (Apresoline Inj) 10 mg Q4HR PRN IV PUSH SBP>160, DBP>90; Start 08/04/17 at 12:30 (Les Horne MD) Medical Decision Making MDM Remarks 82-year-old gentleman who fell backwards off of a ladder approximately 10 feet TBI, s/p placement of intracranial pressure monitor with stable ICPs CT Brain 07/31/17: increase in the size of the left subdural hematoma. Stable right subdural hematoma. Increase in size of the right temporal tip hematoma. Stable size left temporal hematoma 08/02/27: Stable intraparenchymal, subdural, and intraventricular hemorrhage. No midline shift or new sites of hemorrhage. (Kathe Murphy) Plan Plan Remarks cont ICP monitoring, repeat CT Brain in 1-2 days, cont nonsurgical mgt for now, cont serial neuro checks nonchemical dvt prophylaxis in view of acute ICH stress ulcer prophylaxis seizure prophylaxis Dr. Horne recommend poss cardiology consultation (Kathe Murphy) Attending Statement Caprini Risk Assessment Model Point Value = 1 Point Value = 2 Point Value = 3 Point Value = 5 Age 41-60 Minor surgery BMI > 25 kg/m2 Swollen legs Varicose veins or History of unexplained or recurrent spontaneous Oral contraceptives or hormone replacement Sepsis (< 1 month) Serious lung disease, including pneumonia (< 1 month) Abnormal pulmonary function Acute myocardial infarction Congestive heart failure (< 1 month) History of inflammatory bowel disease Medical patient at bed rest Age 61-74 Arthroscopic surgery Major open surgery (> 45 min) Laparoscopic surgery (> 45 min) Malignancy Confined to bed (> 72 hours) Immobilizing plaster cast Central venous access Age >= 75 History of VTE Family history of VTE Factor V Leiden Prothrombin [id number] Lupus anticoagulant Anticardiolipin antibodies Elevated serum homocysteine Heparin-induced thrombocytopenia Other congenital or acquired thrombophilia Stroke (< 1 month) Elective arthroplasty Hip, pelvis, or leg fracture Acute spinal cord injury (< 1 month) Prophylaxis Regimen Total Risk Factor Score Risk Level Prophylaxis Regimen 0-1 Low Early ambulation 2 Moderate Order ONE of the following: *Sequential Compression Device (SCD) *Heparin 5000 units SQ BID 3-4 Higher Order ONE of the following medications: *Heparin 5000 units SQ TID *Enoxaparin/Lovenox 40 mg SQ daily (WT < 150 kg, CrCl > 30 mL/min) *Enoxaparin/Lovenox 30 mg SQ daily (WT < 150 kg, CrCl > 10-29 mL/min) *Enoxaparin/Lovenox 30 mg SQ BID (WT < 150 kg, CrCl > 30 mL/min) AND/OR *Sequential Compression Device (SCD) 5 or more Highest Order ONE of the following medications: *Heparin 5000 units SQ TID (Preferred with Epidurals) *Enoxaparin/Lovenox 40 mg SQ daily (WT < 150 kg, CrCl > 30 mL/min) *Enoxaparin/Lovenox 30 mg SQ daily (WT < 150 kg, CrCl > 10-29 mL/min) *Enoxaparin/Lovenox 30 mg SQ BID (WT < 150 kg, CrCl > 30 mL/min) AND *Sequential Compression Device (SCD) His condition remains critical. His venous left sided subdural hematoma its worse. He is at risk fir clinical deterioration. We will obtain a follow up CT tomorrow. If further increase in the size of the hemorrhage he may need to undergo a craniotomy with evacuation of the hematoma Pulmonary. Continue full mechanical ventilation in Assist control mode of ventilation aggressive pulmonary toilette, nasotracheal suction, and breathing treatments with nebulizers. Daily PT and OT Renal. monitor closely urine output, BUN and creatinine Endocrine.Monitor serial Acu checks and SSI as needed in detail ID monitor for signs of infection Protonix for stress ulcer prophylaxis Gilbert hose and SCD's for DVT prophylaxis Further recommendations will be provided depending on the patient's clinical evaluation and follow up studies The exam, history, and the medical decision-making described in the above note were completed with the assistance of the mid-level provider. I reviewed and agree with the findings presented. I attest that I had a [id number] encounter with the patient on the same day, and personally performed and documented my assessment and findings in the medical record. (Les Horne MD) Kathe Murphy Aug 02, 2017 13:58 Les Horne MD Aug 04, 2017 13:53
--- NOTE | 2017-08-02 18:51 | EKG ---
Date Performed: 08/02/2017 Time Performed: 11:03:43 PTAGE: 82 years EKG: Sinus rhythm WITH FIRST DEGREE AV BLOCK WITH OCCASIONAL VENTRICULAR PREMATURE COMPLEXES MODERATE INTRAVENTRICULAR CONDUCTION DELAY ABNORMAL QRS-T ANGLE ABNORMAL ECG Since the prior tracing, there has been no signif icant change PREVIOUS TRACING : 07/30/2017 13.53 DOCTOR: Maxx Martinez Interpretating Date/Time 08/02/2017 18:49:13
--- NOTE | 2017-08-02 20:14 | HHI.CCPN ---
Subjective Brief History 82-year-old gentleman who fell backwards off of a ladder with brief loss of consciousness and brief round of CPR at the scene was brought in as a level II trauma alert intubated in the trauma bay and upgraded to level I. He was found to have subdural and subarachnoid hemorrhages and was given 2 units of platelets for platelet dysfunction secondary to Plavix use. Final injuries Right temporal intraparenchymal hemorrhage with slight subdural component Left frontoparietal and temporo-occipital subdural hematoma about 1 cm thick Patient has complex history of CHF,coronary artery disease, diabetes mellitus and chronic renal insufficiency requiring dialysis in 2013. Since then patient has been off dialysis but at this point creatinine is rising. 24 Hour Review/Hospital Course 07/[address] appears to be worse today with slight increase in the size of his bleeds Is currently on a Cardene drip to maintain systolic blood pressure less than 160 , his beta stacie has been held for a heart rate in the mid 50s 08/01/2017 Patient is intubated ventilated on propofol and fentanyl ICP measurements about 5-8 mmHg Remains sedated not moving any extremities at this time Hemodynamically patient is stable with hypertension. Patient is noted to be hypertensive from home and some of medications have been reinstituted In addition to Lopressor and hydralazine patient is currently on Cardene drip in order to keep systolic blood pressure under 160 mmHg Patient will need Catapres patch in order to wean off Cardene In face of increased creatinine and BUN patient did not have IV contrast to assess the chest and abdomen but externally there are no signs of trauma to either Renal function as above noted is impaired with rising creatinine and BUN. Nephrology consult from Dr. Chavez is greatly appreciated Patient will be managed expectantly and as the neurologic function improves sedation will be gradually weaned It should be noted that severe brain trauma in this age group with related medical problems survival is very low and patient is a high mortality probably in the range of 80-90%. 08/02/2017 Patient remains intubated ventilated and sedated with all neuroprotective measures Hemodynamically patient is stable and hypertensive on several antihypertensive drugs including Cardene noted to keep systolic blood pressure under 160 mmHg Bilateral breath sounds remains ventilatory dependent in the face of decreased level of consciousness On assist control ventilation 40% FiO2 Abdomen soft nontender will start on enteral feedings Nephrology help is greatly appreciated in the care of this patient with marginal renal function and he may need intermittent dialysis should his fluid status worsened and he becomes fluid overloaded Objective Vital Signs Date Time Temp Pulse Resp B/P (MAP) Pulse Ox O2 Delivery O2 Flow Rate FiO2 08/02/17 19:42 96 75 08/02/17 19:28 84 166/73 08/02/17 16:00 98.2 12 07/30/17 20:30 Mechanical Ventilator 07/30/17 13:00 15.00 Intake and Output 08/02/17 08/02/17 08/03/17 08:00 16:00 00:00 Intake Total 304 ml 355 ml 0 ml Output Total 640.0 ml 900 ml Balance -336.0 ml 355 ml -900 ml Result Diagram: 08/02/17 0427 08/02/17 0427 Other Results Laboratory Tests Test 08/02/17 04:52 Blood Gas Puncture Site RT RADIAL Blood Gas Patient Temperature 98.6 Blood Gas HCO3 15 mmol/L (22-26) Blood Gas Base Excess -10.3 mmol/L (-2-2) Blood Gas Oxygen Saturation 97 % (90-100) Arterial Blood pH 7.29 (7.380-7.420) Arterial Blood Partial Pressure CO2 32 mmHg (38-42) Arterial Blood Partial Pressure O2 130 mmHg (61-120) Arterial Blood Oxygen Content 11.3 Vol % (12.0-20.0) Arterial Blood Carboxyhemoglobin 1.4 % (0-4) Arterial Blood Methemoglobin 0.9 % (0-2) Blood Gas Hemoglobin 8.1 G/DL (12.0-16.0) Oxygen Delivery Device VENTILATOR Blood Gas Ventilator Setting PCV/VG Blood Gas Inspired Oxygen 50 % Imaging Last 24 hours Impressions Chest X-Ray 08/02/17 0600 Signed Impressions: Service Date/Time: Wednesday, August 02, 2017 04:29 - CONCLUSION: Stable chest x-ray with bilateral pleural effusions with associated volume loss and/or airspace consolidation. Ra Pulliam MD Lower Extremity Ultrasound 08/02/17 0000 Signed Impressions: Service Date/Time: Wednesday, August 02, 2017 10:40 - CONCLUSION: No evidence of DVT. 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 Patient is sedated ventilated Hemodynamic/Cardiac Hemodynamically patient is stable however had some arrhythmias and pauses Consulted cardiology in face of previous cardiac issues Cardiac echo reveals ejection fraction about 50-55% Patient hypertensive requiring multiple medications including Cardene drip Pulmonary/Respiratory Bilateral breath sounds assist-control ventilation with improved PO2 FiO2 gradient on 35% FiO2 Abdomen/GI Nutrition Abdomen soft enteral feeds tolerated and started at low rate Renal/I&O Renal function is marginal and nephrology help is greatly appreciated patient might need dialysis in the future depending on the fluid status and ability to unload volume Assessment and Plan Plan Subarachnoid and subdural hemorrhages following fall with a platelets dysfunction secondary to Plavix -Continue supportive care and monitoring per neurosurgery -Continue full ventilator support as tolerated, he has increasing oxygen requirements having gone up on the PEEP this morning -Transfuse 2 units of packed cells. Although the patient has chronic anemia his hemoglobin is 6.5 today and transfusion will assist with oxygenation as well as renal perfusion -Start tube feeds today for nutritional support -Patient has an elevated BUN/creatinine with marginal urine output, he is on a large amount of diuretics at home, consider nephrology consult if this does not improve Attestation Critical care 38 minutes Andrea Banks MD Aug 02, 2017 20:14
[2017-08-02] MEDS: TERAZOSIN HCL 5 MG CAP PO SCH (21:34)
[2017-08-02 22:12] LABS: ALB/GLOB RATIO (SPE) 1.33 (1.39-2.23)
[2017-08-03] VITALS (27 sets, daily range): BP systolic 135–168; BP diastolic 61–72; PULSE 52–74; RESP 12–21; TEMP 97.5–99.7; O2SAT 98–100
[2017-08-03] MEDS: niCARdipine INJ 25 MG in SODIUM CHLOR 0.9% 250 ML INJ 240 ML IV PRN ×5 (00:58→22:18)
[2017-08-03] MEDS: CHLOROTHIAZIDE SOD 500 MG VIAL IV SCH ×2 (01:00→12:54)
[2017-08-03] MEDS: PROPOFOL 1000 MG/100 ML IV PRN ×4 (02:55→19:13)
[2017-08-03] MEDS: RESP: ALBUTEROL 2.5 MG/IPRATROPIUM 0.5 MG NEB (SCH) NEB ×4 (03:32→19:55)
[2017-08-03] MEDS: CHLORHEXIDINE GLUCONATE 2 % 1 PACK (2 CLOTHS) TOP SCH (04:00)
[2017-08-03 05:28] LABS: BASOPHIL % 0.2 % (0.0-2.0); EOSINOPHIL # 0.1 TH/MM3 (0-0.4); HEMATOCRIT 21.8 % (39.0-51.0); HEMOGLOBIN 7.2 GM/DL (13.0-17.0); LYMPH % 7.2 % (9.0-44.0); LYMPHOCYTE # 0.6 TH/MM3 (1.0-4.8); MEAN CELL VOLUME 87.8 FL (80.0-100.0); MEAN CORPUSCULAR HEMOGLOBIN 29.1 PG (27.0-34.0); MEAN CORPUSCULAR HGB CONC 33.2 % (32.0-36.0); MEAN PLATELET VOLUME 10.2 FL (7.0-11.0); MONO % 13.6 % (0.0-8.0); PLATELET COUNT 108 TH/MM3 (150-450); RED BLOOD COUNT 2.48 MIL/MM3 (4.50-5.90); RED CELL DISTRIBUTION WIDTH 26.3 % (11.6-17.2); WHITE BLOOD COUNT 7.6 TH/MM3 (4.0-11.0)
--- NOTE | 2017-08-03 05:33 | RADRPT ---
EXAM DATE/TIME: 08/03/2017 04:54 [place] COMPARISON: CHEST SINGLE AP, August 02, 2017, 4:29. INDICATIONS : Shortness of breath. MEDICAL HISTORY : Hypertension. Congestive heart failure. Hypercholesterolemia. Diabetes, Skin cancer SURGICAL HISTORY : Fem-pop bypass graft ENCOUNTER: Subsequent ACUITY: 4 - 6 days PAIN SCORE: Non-responsive. LOCATION: Bilateral chest FINDINGS: Portable AP view of the chest demonstrates a normal-sized cardiac silhouette with calcification of th e aorta. Patient is under underinflated and rotated. There is a gastric tube courses beyond the GE ju nction and endotracheal tube distal tip is at the aortic knob level. There are bibasilar pleural-pare nchymal opacities. No pneumothorax is seen. CONCLUSION: Stable chest x-ray with bibasilar opacities representing either atelectasis, consolidation, and/or pl eural effusion. Overall, stable examination. Ra Pulliam MD on August 03, 2017 at 5:31 Board Certified Radiologist. This report was verified electronically.
[2017-08-03] MEDS: INSULIN ASPART SUPPLEMENTAL SCALE SQ SCH ×4 (06:00→18:00)
[2017-08-03 06:06] LABS: ALBUMIN 2.3 GM/DL (3.4-5.0); AST (GOT) 18 U/L (15-37); BICARBONATE 16.9 MEQ/L (21.0-32.0); BLOOD UREA NITROGEN 58 MG/DL (7-18); CALCIUM 7.5 MG/DL (8.5-10.1); CHLORIDE 116 MEQ/L (98-107); CREATININE 3.62 MG/DL (0.60-1.30); GLOMERULAR FILTRATION RATE 16 ML/MIN (>89); GLUCOSE,RANDOM 110 MG/DL (74-106); SODIUM (NA) 147 MEQ/L (136-145)
[2017-08-03 06:10] LABS: ALKALINE PHOSPHATASE 128 U/L (45-117); ALT (GPT) 11 U/L (12-78); TOTAL BILIRUBIN ADULT 0.7 MG/DL (0.2-1.0); TOTAL PROTEIN 5.3 GM/DL (6.4-8.2)
[2017-08-03 06:56] LABS: ACANTHOCYTES 1+ (NORMAL); KERATOCYTES OCC (NORMAL); OVALOCYTES 1+ (NORMAL)
--- NOTE | 2017-08-03 08:06 | MB ---
cc: Aman Lind DO DATE OF CONSULT: 08/02/2017 REASON FOR CONSULTATION: Dysrhythmia. HISTORY OF PRESENT ILLNESS: Brooks Alonzo is an 82-year-old male who sees my partner, Dr. Cheung, and presented to [facility] Emergency Room after a fall. Apparently the patient was helping his on patch a wall and was coming down the ladder and he fell off backwards and hit his head on cement. He underwent a brief round of CPR, but was found to be spontaneous breathing and so it was stopped. He was brought into the trauma bay hypertensive and confused and he was then intubated in the trauma bay. He had unequal pupils and coffee-ground emesis and presented to [facility] on 07/30/2017, after a fall. The patient is unable to relay history and so history is taken from records and also his daughter. Apparently the patient was helping patch up a wall with his on and was on a ladder. He fell from the ladder a short distance and landed on his shoulder and then his head on the cement ground. He was then unsure if he was reactive and there was a concern and so CPR was started, but he was noted to be breathing spontaneously. He was brought in to the emergency room and while in the trauma bay intubated. There was a concern for unequal pupils and coffee-ground emesis prior to intubation. During his workup, he was found to have a right subarachnoid hemorrhage, as well as a right subdural hematoma. He has since had an intracranial pressure monitor placed and is currently in the ICU. This morning apparently, he has had some episodes of PVCs and he was also noted to be hypertensive. I was consulted to help with his overall management from a heart standpoint. PAST MEDICAL HISTORY: 1. Chronic kidney disease. 2. Unknown type of congestive heart failure. 3. Peripheral vascular disease. PAST SURGICAL HISTORY: Laparotomy for ruptured appendix. ALLERGIES: CONTRAST. MEDICATIONS: 1. Iron 160 milligrams daily. 2. Plavix 75 milligrams daily. 3. Zocor 20 milligrams daily. 4. Hydralazine 25 milligrams twice a day. 5. Terazosin 10 milligrams every night. 6. Metoprolol tartrate 50 milligrams twice a day. 7. Losartan 25 milligrams daily. 8. Aldactone 25 milligrams daily. 9. Aspirin 325 milligrams daily. 10. Primidone 200 milligrams twice a day. 11. Lasix 80 milligrams daily. 12. Omeprazole 20 milligrams daily. 13. Glipizide 25 milligrams daily. 14. Finasteride 5 milligrams daily. 15. Allopurinol 100 milligrams twice a day. FAMILY HISTORY: Unknown at this time. SOCIAL HISTORY: Unable to obtain at this time due to the patient's condition. REVIEW OF SYSTEMS: Unable to obtain at this time due to the patient's condition. PHYSICAL EXAMINATION: VITAL SIGNS: Temperature 98.2, heart rate 60, blood pressure 140/65, respirations 12, pulse oximetry 100% on the ventilator. GENERAL: The patient is currently intubated and sedated. HEENT: Intracranial pressure monitor in place. Pupils are right 2 millimeters, left 3 millimeters. Mucous membranes moist. ET tube in place. NECK: Supple, no JVD at 45 degrees. No carotid bruits heard bilaterally. Carotid upstroke is brisk in nature. CARDIOVASCULAR: Regular rate and rhythm. Positive first and second heart sounds, with no murmurs, rubs or gallops. PULMONARY: Lungs have decreased breath sounds bilaterally, but no overt wheezes, rales or rhonchi. ABDOMEN: Soft, nontender, nondistended. No organomegaly noted. EXTREMITIES: Shows no clubbing or edema. Femoral and distal pulses intact bilaterally. Show trace to 1+ pitting edema. No cyanosis is noted in the extremities. NEUROLOGIC: Unable to determine at this time. SKIN: Warm, dry and intact. OSTEOPATHICALLY: No kyphoscoliosis, lordosis or paraspinal tender points. LABORATORY DATA: Hemoglobin 7.6, hematocrit 22.8, platelets 117. Potassium 4.5, BUN 49, creatinine 3.17, magnesium 2.0. STUDY: Echocardiogram 08/02/2017 (at 11:03) sinus rhythm, first degree block, PVCs, nonspecific intraventricular conduction delay. IMPRESSION: 1. Mechanical fall. 2. Subarachnoid as well as subdural hematoma. 3. Accelerated hypertension. 4. Anemia. 5. Lactic acidosis. 6. Acute renal failure. 7. Premature ventricular contraction. 8. Ejection fraction of 50-55% by echocardiogram (07/31/2017). 9. Peripheral artery disease. 10. Ventilator dependent, respiratory failure. RECOMMENDATIONS: 1. Mr. Alonzo appears to have sustained a fall and has a subdural as well as subarachnoid hemorrhage and these will be managed by the Neurosurgical team. 2. As far as his PVCs goes, these are most likely benign in nature. An echo has been checked and he has relatively normal function and his electrolytes are within normal range. Would suggest to keep these as close to normal as possible. 3. Aspirin and Plavix has been stopped appropriately with his obvious subdural as well as subarachnoid hemorrhage. 4. Agree with Nephrology and trying to increase his diuretics. 5. He is currently on a Cardene drip to help control his blood pressure. Eventually this can be changed to oral medication, but at this time, I think it would be best to have consistent control over his blood pressure with his subdural as well as subarachnoid hemorrhage. 6. Further recommendations will be made based on the hospital course. Thank you for allowing me to see Brooks Alonzo. If there are any questions, please do not hesitate to call. DO PATRICIA Hastings/ADALBERTO , 06:11 PM , 06:48 PM
[2017-08-03] MEDS: levETIRAcetam INJ 500 MG in SODIUM CHLORIDE 0.9% INJ 100 ML IV SCH ×2 (09:42→20:32)
[2017-08-03] MEDS: CHLORHEXIDINE 0.12% (ORAL KIT) 15 ML CUP MT SCH ×2 (09:42→20:32)
[2017-08-03] MEDS: LACTULOSE SYRUP 20 GM/30 ML CUP PO SCH (09:43)
[2017-08-03] MEDS: SODIUM CHLORIDE 0.9% FLUSH 10 ML FLUSH IV FLUSH PRN (09:43)
[2017-08-03] MEDS: FAMOTIDINE 20 MG TAB PO SCH ×2 (09:43→20:33)
[2017-08-03] MEDS: METOPROLOL TARTRATE 25 MG TAB PO SCH ×2 (09:43→20:33)
[2017-08-03] MEDS: DOCUSATE SODIUM 50 MG/SENNA 8.6 MG TAB PO SCH ×2 (09:43→20:32)
[2017-08-03] MEDS: PRAVASTATIN SOD 40 MG TAB PO SCH (09:43)
[2017-08-03] MEDS: hydrALAZINE HCL 100 MG TAB PO SCH ×2 (09:44→20:33)
[2017-08-03] MEDS: FUROSEMIDE 40 MG/4 ML VIAL IV PUSH SCH ×2 (09:44→17:42)
--- NOTE | 2017-08-03 12:02 | HHI.NSPN ---
(Kathe Murphy) Note Status Status: Progress Note (Kathe Murphy) Interval History Interval History This is an 82-year-old gentleman who fell backwards off of a ladder approximately 10 feet. He underwent a brief round of CPR but was found to be spontaneously breathing so it was stopped patient was brought in the trauma bay hypertensive and confused he was intubated in the trauma bay. No seizure activity reported. No tongue biting. No incontinence of stool or urine. No tonic-clonic movements. He had unequal pupils and a coffee-ground emesis prior to intubation. He was upgraded to a level I trauma alert. He was resuscitated according to the ATLS protocol and full trauma workup was carried down. He was found to have right subarachnoid hemorrhage as well as subdural hematoma. He was given 2 units of platelets that for his platelet insufficiency due to Plavix. He was moving his extremities. Neurosurgical consultation was requested 07/31/17. Remains intubated and sedated. ICP monitor in place. A follow-up CT of the brain was obtained 08/01/17: intubated and sedated, ICPs below 10. 08/02/17: intubated, sedated. ICPs stable. f/u CT Brain yesterday showed slight increase in size of left subdural hematoma per Dr. Horne' review. decreasing renal function - nephrology consulted, also now with PVCs. 08/03/17: remains intubated, sedated on fentanyl and propofol drips. ICPs below 20. (Kathe Murphy) Labs, Micro, & Vital Signs Results Date Time Temp Pulse Resp B/P (MAP) Pulse Ox O2 Delivery O2 Flow Rate FiO2 08/03/17 11:49 99 50 08/03/17 10:48 97.9 52 12 168/68 99 08/03/17 10:36 97.9 59 12 146/67 99 08/03/17 10:29 98.1 56 12 141/63 99 08/03/17 07:55 100 60 08/03/17 06:39 99 65 08/03/17 06:00 52 08/03/17 06:00 60 08/03/17 04:00 75 08/03/17 04:00 97.5 62 12 135/61 (85) 99 08/03/17 04:00 62 08/03/17 03:34 99 75 08/03/17 02:00 60 08/03/17 00:58 77 157/69 08/03/17 00:00 99.7 74 12 156/69 (98) 99 08/03/17 00:00 74 08/03/17 00:00 75 08/02/17 23:41 99 75 08/02/17 22:00 72 08/02/17 20:00 85 08/02/17 20:00 98.8 85 12 179/77 (111) 99 08/02/17 20:00 75 08/02/17 19:42 96 75 08/02/17 19:28 84 166/73 08/02/17 18:00 63 08/02/17 16:00 65 08/02/17 16:00 60 08/02/17 16:00 98.2 60 12 140/65 (90) 100 08/02/17 15:38 100 70 08/02/17 14:00 60 08/02/17 12:00 99.5 62 12 140/59 (86) 98 08/02/17 12:00 100 08/02/17 12:00 62 08/04/17 07:00 Intake Total 330 ml Balance 330 ml Constitutional Vital Signs Date Time Temp Pulse Resp B/P (MAP) Pulse Ox O2 Delivery O2 Flow Rate FiO2 08/03/17 11:49 99 50 08/03/17 10:48 97.9 52 12 168/68 99 08/03/17 10:36 97.9 59 12 146/67 99 08/03/17 10:29 98.1 56 12 141/63 99 08/03/17 07:55 100 60 08/03/17 06:39 99 65 08/03/17 06:00 52 08/03/17 06:00 60 08/03/17 04:00 75 08/03/17 04:00 97.5 62 12 135/61 (85) 99 08/03/17 04:00 62 08/03/17 03:34 99 75 08/03/17 02:00 60 08/03/17 00:58 77 157/69 08/03/17 00:00 99.7 74 12 156/69 (98) 99 08/03/17 00:00 74 08/03/17 00:00 75 08/02/17 23:41 99 75 08/02/17 22:00 72 08/02/17 20:00 85 08/02/17 20:00 98.8 85 12 179/77 (111) 99 08/02/17 20:00 75 08/02/17 19:42 96 75 08/02/17 19:28 84 166/73 08/02/17 18:00 63 08/02/17 16:00 65 08/02/17 16:00 60 08/02/17 16:00 98.2 60 12 140/65 (90) 100 08/02/17 15:38 100 70 08/02/17 14:00 60 08/02/17 12:00 99.5 62 12 140/59 (86) 98 08/02/17 12:00 100 08/02/17 12:00 62 08/04/17 07:00 Intake Total 330 ml Balance 330 ml (Kathe Murphy) Review of Systems ROS Limitations: Intubated (Kathe Murphy) Physical Exam Mr. Alonzo is intubated and sedated on propofol and fentanyl, no eyes opening noted, not following commands. Head: Right ICP monitor in place, ICPs = 12 Cranial Nerves: Pupils right 2mm, left 3 mm round. Eyes appear conjugated. Cervical Spine: soft, supple Motor: His muscle tone and bulk are normal. not following commands for testing , minimal withdraw in feet bilaterally Reflexes: bilateral plantar flexion response. Sensory: minimal response to painful stimuli Cerebellar: cannot be adequately assessed due to the patient's neurological condition. Heart: regular rate, rhythm Resp: clear, mechanically ventilated (Kathe Murphy) Mr Alonzo is intubated and well sedated. very minimal eyes opening noted, not following commands. Right ICP monitor in place, ICPs = 6-8 Cranial Nerves: Pupils right 2mm, left 3 mm round. Eyes appear conjugated. Cervical Spine: soft, supple Motor: His muscle tone and bulk are normal. not following commands for testing Reflexes: bilateral plantar flexion response. Sensory: minimal response to painful stimuli Cerebellar: cannot be adequately assessed due to the patient's neurological condition. Heart: regular rate, rhythm Resp: clear, mechanically ventilated (Les Horne MD) Medications Current Medications Current Medications Medications (Trade) Dose Ordered Sig/Juliet Route PRN Reason Start Time Stop Time Status Last Admin Dose Admin Sodium Chloride (NS Flush) 2 ml UNSCH PRN IV FLUSH FLUSH AFTER USING IV ACCESS 07/30/17 12:45 08/03/17 09:43 Ondansetron HCl (Zofran Inj) 4 mg Q6H PRN IV PUSH NAUSEA OR VOMITING 07/30/17 12:45 Miscellaneous Information 1 Q361D XX 07/30/17 12:45 Chlorhexidine Gluconate (Chlorhexidine 2% Cloth) 3 pack Taper DAILY@04 TOP 07/31/17 04:00 07/27/18 03:59 08/03/17 04:00 Chlorhexidine Gluconate (Chlorhexidine 2% Cloth) 3 pack UNSCH PRN TOP HYGIENIC CARE 07/30/17 12:45 Chlorhexidine Gluconate (Peridex 0.12% Liq) 15 ml BID@08,20 MT 07/30/17 20:00 08/03/17 09:42 Fentanyl Citrate 250 ml @ 5 mls/hr TITRATE PRN IV Sedation 07/30/17 13:30 08/02/17 13:12 Propofol 100 ml @ 2.64 mls/hr TITRATE PRN IV SEDATION 07/30/17 13:30 08/03/17 07:02 Famotidine (Pepcid) 10 mg BID PO 07/30/17 21:00 08/03/17 09:43 Nicardipine HCl 25 mg/Sodium Chloride 250 ml @ 50 mls/hr TITRATE PRN IV Blood pressure management 07/30/17 16:15 08/03/17 00:58 Pravastatin Sodium (Pravachol) 40 mg DAILY PO 07/31/17 09:00 08/03/17 09:43 Metoprolol Tartrate (Lopressor) 25 mg Q12HR PO 07/31/17 09:00 08/03/17 09:43 Dextrose (D50w (Vial) Inj) 50 ml UNSCH PRN IV PUSH HYPOGLYCEMIA-SEE COMMENTS 07/31/17 07:45 Glucagon (Glucagon Inj) 1 mg UNSCH PRN OTHER HYPOGLYCEMIA-SEE COMMENTS 07/31/17 07:45 Terazosin HCl (Hytrin) 10 mg HS PO 07/31/17 21:00 08/02/17 21:34 Hydralazine HCl (Apresoline) 100 mg Q12HR PO 07/31/17 09:00 08/03/17 09:44 Levetriacetam 500 mg/Sodium Chloride 105 ml @ 420 mls/hr Q12HR IV 08/01/17 10:00 08/03/17 09:42 Miscellaneous Information 1 Q7D T-DERMAL 08/08/17 16:00 Senna/Docusate Sodium (Jackelyn-Colace) 1 tab BID PO 08/01/17 21:00 08/03/17 09:43 Lactulose (Lactulose Liq) 30 ml DAILY PO 08/01/17 16:15 08/03/17 09:43 Bisacodyl (Dulcolax Supp) 10 mg DAILY PRN RECTAL Constipation 08/01/17 16:15 Clonidine (Catapres-Tts 0.2 Mg Patch.7d) 1 patch Q7D T-DERMAL 08/01/17 20:00 08/01/17 20:31 Miscellaneous Information 1 Q7D T-DERMAL 08/01/17 20:00 Insulin Aspart (NovoLOG SUPPLEMENTAL SCALE) 1 Q6HR SQ 08/01/17 18:00 Chlorothiazide Sodium (Diuril Inj) 500 mg Q12H IV 08/03/17 01:00 08/03/17 01:00 Furosemide (Lasix Inj) 80 mg BID@,18 IV PUSH 08/02/17 18:00 08/03/17 09:44 Albuterol/ Ipratropium (Duoneb Neb) 1 ampule Q6HR NEB NEB 08/02/17 22:00 08/03/17 07:55 (Kathe Murphy) Medical Decision Making MDM Remarks 82-year-old gentleman who fell backwards off of a ladder approximately 10 feet TBI, s/p placement of intracranial pressure monitor with stable ICPs CT Brain 07/31/17: increase in the size of the left subdural hematoma. Stable right subdural hematoma. Increase in size of the right temporal tip hematoma. Stable size left temporal hematoma 08/02/27: Stable intraparenchymal, subdural, and intraventricular hemorrhage. No midline shift or new sites of hemorrhage. (Kathe Murphy) Plan Plan Remarks cont ICP monitoring, repeat CT Brain tomorrow morning cont nonsurgical mgt for now, cont serial neuro checks nonchemical dvt prophylaxis in view of acute ICH stress ulcer prophylaxis seizure prophylaxis (Kathe Murphy) Attending Statement Mr Alonzo remains in critical condition. He is at risk fir clinical deterioration. He continues to have a deteriorating renal function and arrythmias. If further increase in the size of the hemorrhage he may need to undergo a craniotomy with evacuation of the hematoma. I again discussed with condition with his daughter. Will obtain a follow up CT on 08/05 Pulmonary. Continue full mechanical ventilation in Assist control mode of ventilation aggressive pulmonary toilette, nasotracheal suction, and breathing treatments with nebulizers. Daily PT and OT Renal. monitor closely urine output, BUN and creatinine Endocrine.Monitor serial Acu checks and SSI as needed in detail ID monitor for signs of infection Protonix for stress ulcer prophylaxis Gilbert hose and SCD's for DVT prophylaxis Further recommendations will be provided depending on the patient's clinical evaluation and follow up studies The exam, history, and the medical decision-making described in the above note were completed with the assistance of the mid-level provider. I reviewed and agree with the findings presented. I attest that I had a [id number] encounter with the patient on the same day, and personally performed and documented my assessment and findings in the medical record. (Les Horne MD) Kathe Murphy Aug 03, 2017 12:02 Les Horne MD Aug 04, 2017 13:55
--- NOTE | 2017-08-03 14:01 | PD.CARD.PN ---
Subjective Subjective Remarks No events overnight No arrhythmias noted Objective Medications Current Medications Medications (Trade) Dose Ordered Sig/Juliet Route Start Time Stop Time Status Last Admin (NS Flush) 2 ml UNSCH PRN IV FLUSH 07/30/17 12:45 08/03/17 09:43 (Zofran Inj) 4 mg Q6H PRN IV PUSH 07/30/17 12:45 Miscellaneous Information 1 Q361D XX 07/30/17 12:45 (Chlorhexidine 2% Cloth) 3 pack Taper DAILY@04 TOP 07/31/17 04:00 07/27/18 03:59 08/03/17 04:00 (Chlorhexidine 2% Cloth) 3 pack UNSCH PRN TOP 07/30/17 12:45 (Peridex 0.12% Liq) 15 ml BID@08,20 MT 07/30/17 20:00 08/03/17 09:42 Fentanyl Citrate 250 ml @ 5 mls/hr TITRATE PRN IV 07/30/17 13:30 08/02/17 13:12 Propofol 100 ml @ 2.64 mls/hr TITRATE PRN IV 07/30/17 13:30 08/03/17 13:53 (Pepcid) 10 mg BID PO 07/30/17 21:00 08/03/17 09:43 Nicardipine HCl 25 mg/Sodium Chloride 250 ml @ 50 mls/hr TITRATE PRN IV 07/30/17 16:15 08/03/17 00:58 (Pravachol) 40 mg DAILY PO 07/31/17 09:00 08/03/17 09:43 (Lopressor) 25 mg Q12HR PO 07/31/17 09:00 08/03/17 09:43 (D50w (Vial) Inj) 50 ml UNSCH PRN IV PUSH 07/31/17 07:45 (Glucagon Inj) 1 mg UNSCH PRN OTHER 07/31/17 07:45 (Hytrin) 10 mg HS PO 07/31/17 21:00 08/02/17 21:34 (Apresoline) 100 mg Q12HR PO 07/31/17 09:00 08/03/17 09:44 Levetriacetam 500 mg/Sodium Chloride 105 ml @ 420 mls/hr Q12HR IV 08/01/17 10:00 08/03/17 09:42 Miscellaneous Information 1 Q7D T-DERMAL 08/08/17 16:00 (Jackelyn-Colace) 1 tab BID PO 08/01/17 21:00 08/03/17 09:43 (Lactulose Liq) 30 ml DAILY PO 08/01/17 16:15 08/03/17 09:43 (Dulcolax Supp) 10 mg DAILY PRN RECTAL 08/01/17 16:15 (Catapres-Tts 0.2 Mg Patch.7d) 1 patch Q7D T-DERMAL 08/01/17 20:00 08/01/17 20:31 Miscellaneous Information 1 Q7D T-DERMAL 08/01/17 20:00 (NovoLOG SUPPLEMENTAL SCALE) 1 Q6HR SQ 08/01/17 18:00 (Diuril Inj) 500 mg Q12H IV 08/03/17 01:00 08/03/17 12:54 (Lasix Inj) 80 mg BID@ IV PUSH 08/02/17 18:00 08/03/17 09:44 (Duoneb Neb) 1 ampule Q6HR NEB NEB 08/02/17 22:00 08/03/17 07:55 Vital Signs / I&O Vital Signs Date Time Temp Pulse Resp B/P (MAP) Pulse Ox O2 Delivery O2 Flow Rate FiO2 08/03/17 12:35 97.7 59 12 149/68 99 08/03/17 12:25 58 08/03/17 12:20 97.9 58 12 150/69 98 08/03/17 12:06 97.9 57 12 149/67 99 08/03/17 11:49 99 50 08/03/17 10:48 97.9 52 12 168/68 99 08/03/17 10:36 97.9 59 12 146/67 99 08/03/17 10:29 98.1 56 12 141/63 99 08/03/17 07:55 100 60 08/03/17 06:39 99 65 08/03/17 06:00 52 08/03/17 06:00 60 08/03/17 04:00 75 08/03/17 04:00 97.5 62 12 135/61 (85) 99 08/03/17 04:00 62 08/03/17 03:34 99 75 08/03/17 02:00 60 08/03/17 00:58 77 157/69 08/03/17 00:00 99.7 74 12 156/69 (98) 99 08/03/17 00:00 74 08/03/17 00:00 75 08/02/17 23:41 99 75 08/02/17 22:00 72 08/02/17 20:00 85 08/02/17 20:00 98.8 85 12 179/77 (111) 99 08/02/17 20:00 75 08/02/17 19:42 96 75 08/02/17 19:28 84 166/73 08/02/17 18:00 63 08/02/17 16:00 65 08/02/17 16:00 60 08/02/17 16:00 98.2 60 12 140/65 (90) 100 08/02/17 15:38 100 70 08/02/17 14:00 60 I/O 08/02/17 08/02/17 08/02/17 08/03/17 08/03/17 08/03/17 07:00 15:00 23:00 07:00 15:00 23:00 Intake Total 304 ml 355 ml 0 ml 0 ml 1230 ml Output Total 830.0 ml 900 ml 650 ml Balance -526.0 ml 355 ml -900 ml -650 ml 1230 ml Intake Oral 0 ml IV Total 200 ml 355 ml 80 ml Tube Feeding 104 ml 0 ml 0 ml Packed Cells 400 ml Blood Product IV Normal Saline Flush 750 ml Output Urine Total 450 ml 450 ml 400 ml Gastric Drainage Total 190 ml 450 ml 250 ml Tube Feeding Residual Discard 190.0 ml # Bowel Movements 0 0 0 Physical Exam GENERAL: Intubated and sedated SKIN: Warm and dry. HEAD: Atraumatic. Normocephalic. EYES: Pupils equal and round. No scleral icterus. No injection or drainage. ENT: No nasal bleeding or discharge. Mucous membranes pink and moist. NECK: Trachea midline. No JVD. CARDIOVASCULAR: Regular rate and rhythm. RESPIRATORY: No accessory muscle use. Clear to auscultation. Breath sounds equal bilaterally. GASTROINTESTINAL: Abdomen soft, non-tender, nondistended. Hepatic and splenic margins not palpable. MUSCULOSKELETAL: Extremities without clubbing, cyanosis, or edema. No obvious deformities. NEUROLOGICAL: Unable to determine. ICP monitor in place, pressures 4-13 Laboratory Laboratory Tests Test 08/03/17 03:57 08/03/17 03:58 Blood Gas Puncture Site RT RADIAL Blood Gas Patient Temperature 98.6 Blood Gas HCO3 16 mmol/L Blood Gas Base Excess -8.7 mmol/L Blood Gas Oxygen Saturation 98 % Arterial Blood pH 7.33 Arterial Blood Partial Pressure CO2 32 mmHg Arterial Blood Partial Pressure O2 210 mmHg Arterial Blood Oxygen Content 11.3 Vol % Arterial Blood Carboxyhemoglobin 0.9 % Arterial Blood Methemoglobin 0.9 % Blood Gas Hemoglobin 7.8 G/DL Oxygen Delivery Device VENTILATOR Blood Gas Ventilator Setting PRVC AC Blood Gas Inspired Oxygen 75 % White Blood Count 7.6 TH/MM3 Red Blood Count 2.48 MIL/MM3 Hemoglobin 7.2 GM/DL Hematocrit 21.8 % Mean Corpuscular Volume 87.8 FL Mean Corpuscular Hemoglobin 29.1 PG Mean Corpuscular Hemoglobin Concent 33.2 % Red Cell Distribution Width 26.3 % Platelet Count 108 TH/MM3 Mean Platelet Volume 10.2 FL Neutrophils (%) (Auto) 78.0 % Lymphocytes (%) (Auto) 7.2 % Monocytes (%) (Auto) 13.6 % Eosinophils (%) (Auto) 1.0 % Basophils (%) (Auto) 0.2 % Neutrophils # (Auto) 6.0 TH/MM3 Lymphocytes # (Auto) 0.6 TH/MM3 Monocytes # (Auto) 1.0 TH/MM3 Eosinophils # (Auto) 0.1 TH/MM3 Basophils # (Auto) 0.0 TH/MM3 CBC Comment AUTO DIFF Differential Comment AUTO DIFF CONFIRMED Platelet Estimate LOW Platelet Morphology Comment NORMAL Ovalocytes 1+ Acanthocytes 1+ Keratocytes OCC Blood Urea Nitrogen 58 MG/DL Creatinine 3.62 MG/DL Random Glucose 110 MG/DL Total Protein 5.3 GM/DL Albumin 2.3 GM/DL Calcium Level 7.5 MG/DL Alkaline Phosphatase 128 U/L Aspartate Amino Transf (AST/SGOT) 18 U/L Alanine Aminotransferase (ALT/SGPT) 11 U/L Total Bilirubin 0.7 MG/DL Sodium Level 147 MEQ/L Potassium Level 4.1 MEQ/L Chloride Level 116 MEQ/L Carbon Dioxide Level 16.9 MEQ/L Anion Gap 14 MEQ/L Estimat Glomerular Filtration Rate 16 ML/MIN Imaging Last 24 hours Impressions Chest X-Ray 08/03/17 0600 Signed Impressions: Service Date/Time: Thursday, August 03, 2017 04:54 - CONCLUSION: Stable chest x-ray with bibasilar opacities representing either atelectasis, consolidation, and/or pleural effusion. Overall, stable examination. Ra Pulliam MD Assessment and Plan Problem List: (1) Major neurocognitive disorder as late effect of traumatic brain injury without behavioral disturbance ICD Codes: S06.9X9S - Unspecified intracranial injury with loss of consciousness of unspecified duration, sequela; F02.80 - Dementia in other diseases classified elsewhere without behavioral disturbance (2) Intracranial bleed ICD Codes: I62.9 - Nontraumatic intracranial hemorrhage, unspecified Status: Acute (3) Edema due to congestive heart failure ICD Codes: I50.9 - Heart failure, unspecified (4) Hypertensive emergency ICD Codes: I16.1 - Hypertensive emergency Status: Acute (5) CKD (chronic kidney disease) stage 3, GFR 30-59 ml/min ICD Codes: N18.3 - Chronic kidney disease, stage 3 (moderate) (6) Acute kidney insufficiency ICD Codes: N28.9 - Disorder of kidney and ureter, unspecified Status: Acute Assessment and Plan 1) Mechanical fall leading in subdural/subarachnoid hemorrhage 2) Benign PVCs Normal function on echo Electrolytes normal range 3) ASA/Plavix stopped for ICH 4) Blood pressure controlled Aman Lind DO Aug 03, 2017 14:01
--- NOTE | 2017-08-03 15:34 | PD.CONS ---
Consult Service Palliative Care . Consult Requested By Petrona SHAFFER . Primary Care Physician Unknown . Reason for Consultation a. To assist with evaluation and management of symptoms including: pain, dyspnea, encephalopathy b. To assist medical decision maker(s) with: better understanding of current medical conditions; weighing benefits/burdens of medical treatment options; making medical treatment decisions. . HPI History of Present Illness Patient is an 82-year-old male who presented to [facility] ED on 07/30/2017 as a trauma alert. Apparently the patient was standing on a ladder <10 feet high with his son when he fell backwards and hit his head, losing consciousness. Patient's son initially thought the patient was not breathing and began to give him CPR but the patient began to arouse after approximately 10 seconds. When EMS arrival the patient's GCS was 13, decreasing to 12 in route to the hospital.. Patient complaining of nausea. No seizure activity reported. No incontinence of stool or urine. No tonic-clonic movements. Patient had unequal pupils and coffee-ground emesis upon arrival to the ED; he was upgraded to a level 1 trauma alert and emergently intubated. Upon arrival to the ED, patient vomited coffee-ground emesis and was emergently intubated. Patient's systolic pressures remained >200, and he was started on a Cardene drip. Additional diagnostic data: * Vital signs: Pulse 47, respirations 22, BP 161/70, oxygen saturation 100% on 15 L via Ambu bag, oral temperature 96.3 * WBC: 7.0, hemoglobin 8.1, hematocrit 23.9, platelets 131, neutrophils 68.1% * Sodium: 146, potassium 4.6, chloride 113, glucose 148 * BUN: 35, creatinine 1.5 * PT: 10.1, INR 1.0, APTT 22.5 * CT head showing extra-axial hemorrhage on the left beginning along the temporal tip extending over the high convexities of the parietal region where it measures up to 8 mm across. Subarachnoid hemorrhage both temporal tips. Small subdural on the right along the temporal region 3-4 mm across. * Chest x-ray showing unremarkable cardiomediastinal contours * CT cervical spine was negative for fracture; moderately sized bilateral pleural effusions. * Shoulder x-ray showed degenerative changes but no obvious fracture or dislocation. Patient was found to have a right subarachnoid hemorrhage as well as a subdural hematoma. He was given 2 units of platelets for his platelets insufficiency secondary to Plavix. Neurosurgery was consulted. Follow-up chest x-ray indicating cardiomegaly and pulmonary edema. BNP: 198. Echocardiogram showing left ventricular systolic function is in the low normal range with EF of 50-55%, trace mitral valve regurgitation, mild pulmonary hypertension (40mmHg). Follow-up imaging of head on 07/31/2017 appears worse with slight increase in the size of his bleeds. Having persistent hypertension. In addition to Lopressor and hydralazine, the patient remains on Cardene to maintain systolic pressure < 160. Nephrology was consulted secondary to increased creatinine and BUN. Patient does have a history of chronic renal insufficiency and required dialysis for a short period of time in 2014 status post ruptured appendix with subsequent laparotomy. Renal insufficiency may be related to cardiac decompensation; there is evidence of clinical fluid overload despite elevation of serum sodium. Managing medically at this time, however patient may require dialysis in the future. Renal ultrasound showed no hydronephrosis. Cardiology now following for recommendations and management of dysrhythmia. Patient remains on full ventilator support with increasing oxygen requirements and increased PEEP this morning. ICP monitor in place. Hemoglobin of 6.5. Transfused with 2 units packed RBCs. Palliative Care was consulted to assist with symptom management and to discuss with the family the benefits and burdens of his current illnesses and the options regarding future care. . Function/Cognitive Trajectory Patient was an active 82-year-old prior to falling off a ladder on 07/30/2017. . Review of Systems ROS Limitations: Clinical Condition, Intubated, Altered Mental Status Cardiovascular: COMPLAINS OF: Lower Extremity Edema Past Family Social History Coded Allergies: Iodinated Contrast- Oral and IV Dye (Verified Adverse Reaction, Severe, 08/02/17) Patient had contrast dye in the past. This caused kidney failure requiring several rounds of dialysis. Past Medical History Hypertension Heart disease Diabetes Severe peripheral arterial disease BPH Hyperlipidemia GERD Chronic renal insufficiency Hyperuricemia . Past Surgical History Right fem-popliteal bypass Aortobifemoral bypass Multiple angioplasties Bilateral carpal tunnel release Vasectomy Bone spur right shoulder . Reported Medications Slow Iron ER (Ferrous Sulfate) 160 Mg Maria Fernanda Mg DAILY Hydralazine HCl 25 Mg Tablet 25 Mg PO BID Aldactone (Spironolactone) 25 Mg Tab 25 Mg PO DAILY Plavix (Clopidogrel Bisulfate) 75 Mg Tab 75 Mg PO DAILY Terazosin (Terazosin HCl) 10 Mg Cap 10 Mg PO HS Simvastatin 20 Mg Tab 20 Mg PO DAILY Primidone 50 Mg Tab 200 Mg PO BID Omeprazole 20 Mg Tab 20 Mg PO DAILY Allopurinol 100 Mg Tab 100 Mg PO BID Metoprolol Tartrate 50 Mg Tab 50 Mg PO BID Losartan (Losartan Potassium) 25 Mg Tab 25 Mg PO DAILY Glipizide 5 Mg Tab 5 Mg PO DAILY Take 30 minutes before a meal Furosemide 80 Mg Tab 80 Mg PO DAILY Finasteride 5 Mg Tab 5 Mg DAILY Do not crush. Aspirin 325 Mg Tab 325 Mg PO DAILY . Current Medications Medications (Trade) Dose Ordered Sig/Juliet Route Start Time Stop Time Status Last Admin (NS Flush) 2 ml UNSCH PRN IV FLUSH 07/30/17 12:45 08/03/17 09:43 (Zofran Inj) 4 mg Q6H PRN IV PUSH 07/30/17 12:45 Miscellaneous Information 1 Q361D XX 07/30/17 12:45 (Chlorhexidine 2% Cloth) 3 pack Taper DAILY@04 TOP 07/31/17 04:00 07/27/18 03:59 08/03/17 04:00 (Chlorhexidine 2% Cloth) 3 pack UNSCH PRN TOP 07/30/17 12:45 (Peridex 0.12% Liq) 15 ml BID@08,20 MT 07/30/17 20:00 08/03/17 09:42 Fentanyl Citrate 250 ml @ 5 mls/hr TITRATE PRN IV 07/30/17 13:30 08/02/17 13:12 Propofol 100 ml @ 2.64 mls/hr TITRATE PRN IV 07/30/17 13:30 08/03/17 13:53 (Pepcid) 10 mg BID PO 07/30/17 21:00 08/03/17 09:43 Nicardipine HCl 25 mg/Sodium Chloride 250 ml @ 50 mls/hr TITRATE PRN IV 07/30/17 16:15 08/03/17 00:58 (Pravachol) 40 mg DAILY PO 07/31/17 09:00 08/03/17 09:43 (Lopressor) 25 mg Q12HR PO 07/31/17 09:00 08/03/17 09:43 (D50w (Vial) Inj) 50 ml UNSCH PRN IV PUSH 07/31/17 07:45 (Glucagon Inj) 1 mg UNSCH PRN OTHER 07/31/17 07:45 (Hytrin) 10 mg HS PO 07/31/17 21:00 08/02/17 21:34 (Apresoline) 100 mg Q12HR PO 07/31/17 09:00 08/03/17 09:44 Levetriacetam 500 mg/Sodium Chloride 105 ml @ 420 mls/hr Q12HR IV 08/01/17 10:00 08/03/17 09:42 Miscellaneous Information 1 Q7D T-DERMAL 08/08/17 16:00 (Jackelyn-Colace) 1 tab BID PO 08/01/17 21:00 08/03/17 09:43 (Lactulose Liq) 30 ml DAILY PO 08/01/17 16:15 08/03/17 09:43 (Dulcolax Supp) 10 mg DAILY PRN RECTAL 08/01/17 16:15 (Catapres-Tts 0.2 Mg Patch.7d) 1 patch Q7D T-DERMAL 08/01/17 20:00 08/01/17 20:31 Miscellaneous Information 1 Q7D T-DERMAL 08/01/17 20:00 (NovoLOG SUPPLEMENTAL SCALE) 1 Q6HR SQ 08/01/17 18:00 (Diuril Inj) 500 mg Q12H IV 08/03/17 01:00 08/03/17 12:54 (Lasix Inj) 80 mg BID@,18 IV PUSH 08/02/17 18:00 08/03/17 09:44 (Duoneb Neb) 1 ampule Q6HR NEB NEB 08/02/17 22:00 08/03/17 07:55 . Family History Familial history of heart disease . Substance Use Tobacco: Patient smoked 4 packs of cigarettes per day for 20 years but no longer smokes. Alcohol: Patient quit drinking alcohol several years ago. Prescription med abuse: None known Illicits: None known . Psychosocial History Patient is originally from [place]. He dated his (Kristin) in high school, and they have now been for approximately 62 years. 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 Together they have 4 adult children, 10 grandchildren and 5 great-grandchildren. . Spiritual/Cultural Factors Mandaen thanh . Documented care wishes: Patient reportedly has completed written advanced directives. Son, Darryn, will bring copies of documentation to the hospital tomorrow 08/04/2017 so that copies can be placed in the patient's chart and scanned into the EMR. . Today's verbally stated goals: Patient is critically ill, unable to participate in establishing medical treatment goals. . Family/friends goals: Family expressing aggressive goals at this time. They wish to provide the patient full support for the next few days, including dialysis if necessary, to see if he shows any improvement. . Ethical and Legal Issues No known ethical or legal issues at this time. . Physical Exam Vital Signs Date Time Temp Pulse Resp B/P (MAP) Pulse Ox O2 Delivery O2 Flow Rate FiO2 08/03/17 14:20 97.7 56 12 161/72 99 08/03/17 14:00 63 08/03/17 12:35 97.7 59 12 149/68 99 08/03/17 12:25 58 08/03/17 12:20 97.9 58 12 150/69 98 08/03/17 12:06 97.9 57 12 149/67 99 08/03/17 12:00 97.9 60 12 149/67 (94) 99 08/03/17 12:00 60 08/03/17 11:49 99 50 08/03/17 10:48 97.9 52 12 168/68 99 08/03/17 10:36 97.9 59 12 146/67 99 08/03/17 10:29 98.1 56 12 141/63 99 08/03/17 10:00 57 08/03/17 08:00 98.1 60 21 152/68 (96) 100 08/03/17 08:00 60 08/03/17 07:55 100 60 08/03/17 06:39 99 65 08/03/17 06:00 52 08/03/17 06:00 60 08/03/17 04:00 75 08/03/17 04:00 97.5 62 12 135/61 (85) 99 08/03/17 04:00 62 08/03/17 03:34 99 75 08/03/17 02:00 60 08/03/17 00:58 77 157/69 08/03/17 00:00 99.7 74 12 156/69 (98) 99 08/03/17 00:00 74 08/03/17 00:00 75 08/02/17 23:41 99 75 08/02/17 22:00 72 08/02/17 20:00 85 08/02/17 20:00 98.8 85 12 179/77 (111) 99 08/02/17 20:00 75 08/02/17 19:42 96 75 08/02/17 19:28 84 166/73 08/02/17 18:00 63 08/02/17 16:00 65 08/02/17 16:00 60 08/02/17 16:00 98.2 60 12 140/65 (90) 100 08/02/17 15:38 100 70 . 08/03/17 08/04/17 19:00 07:00 Intake Total 1780 ml Balance 1780 ml IV Total 80 ml Packed Cells 800 ml Blood Product IV Normal Saline Flush 900 ml . Exam CONSTITUTIONAL/GENERAL: This is an adequately nourished elderly, male patient currently intubated on mechanical ventilation TUBES/LINES/DRAINS: PIV 3, Dockery catheter, ETT, OGT, ICP monitor SKIN: No jaundice, rashes, or lesions. Ecchymoses on upper extremities. Skin temperature appropriate. Not diaphoretic. HEAD: Atraumatic. Normocephalic. EYES: Pupils equal and round and sluggish. No scleral icterus. No injection or drainage. Fundi not examined. ENT: Unable to assess hearing given current clinical condition. Nose without bleeding or purulent drainage. NECK: Trachea midline. Supple, nontender. No palpable thyroid enlargement or nodularity. CARDIOVASCULAR: Irregularly irregular without murmurs, gallops, or rubs. No JVD. Peripheral pulses symmetric. 3+ pedal edema RESPIRATORY/CHEST: Intubated on mechanical ventilation. Breath sounds diminished bilaterally. GASTROINTESTINAL: Abdomen soft, non-tender, nondistended. Bowel sounds present. GENITOURINARY: Without palpable bladder distension. Dockery catheter in place, draining dayne colored urine MUSCULOSKELETAL: Extremities without clubbing or cyanosis. LYMPHATICS: No palpable cervical or supraclavicular adenopathy. NEUROLOGICAL: Sedated. Withdraws lower extremities to noxious stimuli. PSYCHIATRIC: Unable to assess given clinical condition. . Diagnostic Tests Laboratory Laboratory Tests Test 08/01/17 04:00 08/01/17 04:40 08/01/17 14:30 08/01/17 20:56 White Blood Count 8.4 TH/MM3 (4.0-11.0) Red Blood Count 2.70 MIL/MM3 (4.50-5.90) Hemoglobin 7.8 GM/DL (13.0-17.0) Hematocrit 23.2 % (39.0-51.0) Mean Corpuscular Volume 86.2 FL (80.0-100.0) Mean Corpuscular Hemoglobin 29.0 PG (27.0-34.0) Mean Corpuscular Hemoglobin Concent 33.6 % (32.0-36.0) Red Cell Distribution Width 26.4 % (11.6-17.2) Platelet Count 123 TH/MM3 (150-450) Mean Platelet Volume 9.1 FL (7.0-11.0) Neutrophils (%) (Auto) 73.2 % (16.0-70.0) Lymphocytes (%) (Auto) 10.8 % (9.0-44.0) Monocytes (%) (Auto) 14.1 % (0.0-8.0) Eosinophils (%) (Auto) 1.6 % (0.0-4.0) Basophils (%) (Auto) 0.3 % (0.0-2.0) Neutrophils # (Auto) 6.2 TH/MM3 (1.8-7.7) Lymphocytes # (Auto) 0.9 TH/MM3 (1.0-4.8) Monocytes # (Auto) 1.2 TH/MM3 (0-0.9) Eosinophils # (Auto) 0.1 TH/MM3 (0-0.4) Basophils # (Auto) 0.0 TH/MM3 (0-0.2) CBC Comment AUTO DIFF Differential Comment AUTO DIFF CONFIRMED Platelet Estimate LOW (NORMAL) Platelet Morphology Comment NORMAL (NORMAL) Ovalocytes 1+ (NORMAL) Acanthocytes 1+ (NORMAL) Blood Urea Nitrogen 42 MG/DL (7-18) Creatinine 2.32 MG/DL (0.60-1.30) Random Glucose 84 MG/DL (74-106) Total Protein 5.2 GM/DL (6.4-8.2) Albumin 2.5 GM/DL (3.4-5.0) Calcium Level 6.8 MG/DL (8.5-10.1) Alkaline Phosphatase 122 U/L (45-117) Aspartate Amino Transf (AST/SGOT) 10 U/L (15-37) Alanine Aminotransferase (ALT/SGPT) 11 U/L (12-78) Total Bilirubin 0.5 MG/DL (0.2-1.0) Sodium Level 149 MEQ/L (136-145) Potassium Level 4.1 MEQ/L (3.5-5.1) 4.8 MEQ/L (3.5-5.1) Chloride Level 118 MEQ/L (98-107) Carbon Dioxide Level 17.8 MEQ/L (21.0-32.0) Anion Gap 13 MEQ/L (5-15) Estimat Glomerular Filtration Rate 27 ML/MIN (>89) Protein Corrected Calcium 7.8 MG/DL (8.5-10.1) Blood Gas Puncture Site LT BRACHIAL Blood Gas Patient Temperature 98.6 Blood Gas HCO3 17 mmol/L (22-26) Blood Gas Base Excess -7.5 mmol/L (-2-2) Blood Gas Oxygen Saturation 96 % (90-100) Arterial Blood pH 7.37 (7.380-7.420) Arterial Blood Partial Pressure CO2 30 mmHg (38-42) Arterial Blood Partial Pressure O2 106 mmHg (61-120) Arterial Blood Oxygen Content 10.1 Vol % (12.0-20.0) Arterial Blood Carboxyhemoglobin 1.4 % (0-4) Arterial Blood Methemoglobin 0.9 % (0-2) Blood Gas Hemoglobin 7.3 G/DL (12.0-16.0) Oxygen Delivery Device VENTILATOR Blood Gas Ventilator Setting [facility]/AC Blood Gas Inspired Oxygen 40 % Urine Color YELLOW (YELLW/STRAW) Urine Turbidity HAZY (CLEAR) Urine pH 5.0 (5.0-8.5) Urine Specific Dawson 1.011 (1.002-1.035) Urine Protein TRACE mg/dL (NEG-TRACE) Urine Glucose (UA) NEG mg/dL (NEG) Urine Ketones NEG mg/dL (NEG) Urine Occult Blood MOD (NEG) Urine Nitrite NEG (NEG) Urine Bilirubin NEG (NEG) Urine Urobilinogen LESS THAN 2.0 MG/DL (LESS Urine Leukocyte Esterase LARGE (NEG) Urine RBC 104 /hpf (0-3) Urine WBC 25 /hpf (0-5) Urine Squamous Epithelial Cells 1 /hpf (0-5) Urine Hyaline Casts 6 /lpf (RARE) Urine Mucus FEW /lpf (OCC) Urine Eosinophils NONE SEEN /HPF (NONE SEEN) Urine Immunofixation Test 08/02/17 04:27 08/02/17 04:52 08/02/17 11:30 08/03/17 03:57 White Blood Count 11.9 TH/MM3 (4.0-11.0) Red Blood Count 2.62 MIL/MM3 (4.50-5.90) Hemoglobin 7.6 GM/DL (13.0-17.0) Hematocrit 22.8 % (39.0-51.0) Mean Corpuscular Volume 86.9 FL (80.0-100.0) Mean Corpuscular Hemoglobin 29.2 PG (27.0-34.0) Mean Corpuscular Hemoglobin Concent 33.6 % (32.0-36.0) Red Cell Distribution Width 26.5 % (11.6-17.2) Platelet Count 117 TH/MM3 (150-450) Mean Platelet Volume 10.1 FL (7.0-11.0) Neutrophils (%) (Auto) 81.3 % (16.0-70.0) Lymphocytes (%) (Auto) 5.0 % (9.0-44.0) Monocytes (%) (Auto) 12.7 % (0.0-8.0) Eosinophils (%) (Auto) 0.7 % (0.0-4.0) Basophils (%) (Auto) 0.3 % (0.0-2.0) Neutrophils # (Auto) 9.6 TH/MM3 (1.8-7.7) Lymphocytes # (Auto) 0.6 TH/MM3 (1.0-4.8) Monocytes # (Auto) 1.5 TH/MM3 (0-0.9) Eosinophils # (Auto) 0.1 TH/MM3 (0-0.4) Basophils # (Auto) 0.0 TH/MM3 (0-0.2) CBC Comment AUTO DIFF Differential Comment AUTO DIFF CONFIRMED Platelet Estimate LOW (NORMAL) Platelet Morphology Comment ENLARGED (NORMAL) Tear Drop Cells 1+ (NORMAL) Ovalocytes 1+ (NORMAL) Acanthocytes OCC (NORMAL) Keratocytes OCC (NORMAL) Blood Urea Nitrogen 49 MG/DL (7-18) Creatinine 3.17 MG/DL (0.60-1.30) Random Glucose 137 MG/DL (74-106) Albumin 2.7 GM/DL (3.4-5.0) Calcium Level 7.7 MG/DL (8.5-10.1) Phosphorus Level 6.8 MG/DL (2.5-4.9) Sodium Level 145 MEQ/L (136-145) Potassium Level 4.5 MEQ/L (3.5-5.1) Chloride Level 115 MEQ/L (98-107) Carbon Dioxide Level 17.2 MEQ/L (21.0-32.0) Total Protein 5.8 GM/DL (6.4-8.2) Alkaline Phosphatase 138 U/L (45-117) Aspartate Amino Transf (AST/SGOT) 9 U/L (15-37) Alanine Aminotransferase (ALT/SGPT) 9 U/L (12-78) Total Bilirubin 0.7 MG/DL (0.2-1.0) Anion Gap 13 MEQ/L (5-15) Estimat Glomerular Filtration Rate 19 ML/MIN (>89) Magnesium Level 2.0 MG/DL (1.5-2.5) Iron Level 15 MCG/DL (65-175) Total Iron Binding Capacity 141 MCG/DL (250-450) Percent Iron Saturation 10.6 % (20-50) Albumin/Globulin Ratio 1.33 (1.39-2.23) Bquwk-6-Oqahvydph 0.33 GM/DL (0.11-0.29) Qizxl-7-Ajrdypgaq 0.65 GM/DL (0.22-1.00) Beta Globulins 0.48 GM/DL (0.53-1.03) Gamma Globulins 0.82 GM/DL (0.50-1.39) Electrophoresis Pathologist Comment 25-Hydroxy Vitamin D Total 16.8 ng/ML (30-100) Complement C3 100 MG/DL (90-180) Complement C4 20 MG/DL (10-40) Hepatitis C Antibody NEGATIVE (NEGATIVE) Blood Gas Puncture Site RT RADIAL RT RADIAL Blood Gas Patient Temperature 98.6 98.6 Blood Gas HCO3 15 mmol/L (22-26) 16 mmol/L (22-26) Blood Gas Base Excess -10.3 mmol/L (-2-2) -8.7 mmol/L (-2-2) Blood Gas Oxygen Saturation 97 % (90-100) 98 % (90-100) Arterial Blood pH 7.29 (7.380-7.420) 7.33 (7.380-7.420) Arterial Blood Partial Pressure CO2 32 mmHg (38-42) 32 mmHg (38-42) Arterial Blood Partial Pressure O2 130 mmHg (61-120) 210 mmHg (61-120) Arterial Blood Oxygen Content 11.3 Vol % (12.0-20.0) 11.3 Vol % (12.0-20.0) Arterial Blood Carboxyhemoglobin 1.4 % (0-4) 0.9 % (0-4) Arterial Blood Methemoglobin 0.9 % (0-2) 0.9 % (0-2) Blood Gas Hemoglobin 8.1 G/DL (12.0-16.0) 7.8 G/DL (12.0-16.0) Oxygen Delivery Device VENTILATOR VENTILATOR Blood Gas Ventilator Setting PCV/VG PRVC AC Blood Gas Inspired Oxygen 50 % 75 % D-Dimer Quantitative (PE/DVT) 3.87 MG/L FEU (0.00-0.50) Test 08/03/17 03:58 White Blood Count 7.6 TH/MM3 (4.0-11.0) Red Blood Count 2.48 MIL/MM3 (4.50-5.90) Hemoglobin 7.2 GM/DL (13.0-17.0) Hematocrit 21.8 % (39.0-51.0) Mean Corpuscular Volume 87.8 FL (80.0-100.0) Mean Corpuscular Hemoglobin 29.1 PG (27.0-34.0) Mean Corpuscular Hemoglobin Concent 33.2 % (32.0-36.0) Red Cell Distribution Width 26.3 % (11.6-17.2) Platelet Count 108 TH/MM3 (150-450) Mean Platelet Volume 10.2 FL (7.0-11.0) Neutrophils (%) (Auto) 78.0 % (16.0-70.0) Lymphocytes (%) (Auto) 7.2 % (9.0-44.0) Monocytes (%) (Auto) 13.6 % (0.0-8.0) Eosinophils (%) (Auto) 1.0 % (0.0-4.0) Basophils (%) (Auto) 0.2 % (0.0-2.0) Neutrophils # (Auto) 6.0 TH/MM3 (1.8-7.7) Lymphocytes # (Auto) 0.6 TH/MM3 (1.0-4.8) Monocytes # (Auto) 1.0 TH/MM3 (0-0.9) Eosinophils # (Auto) 0.1 TH/MM3 (0-0.4) Basophils # (Auto) 0.0 TH/MM3 (0-0.2) CBC Comment AUTO DIFF Differential Comment AUTO DIFF CONFIRMED Platelet Estimate LOW (NORMAL) Platelet Morphology Comment NORMAL (NORMAL) Ovalocytes 1+ (NORMAL) Acanthocytes 1+ (NORMAL) Keratocytes OCC (NORMAL) Blood Urea Nitrogen 58 MG/DL (7-18) Creatinine 3.62 MG/DL (0.60-1.30) Random Glucose 110 MG/DL (74-106) Total Protein 5.3 GM/DL (6.4-8.2) Albumin 2.3 GM/DL (3.4-5.0) Calcium Level 7.5 MG/DL (8.5-10.1) Alkaline Phosphatase 128 U/L (45-117) Aspartate Amino Transf (AST/SGOT) 18 U/L (15-37) Alanine Aminotransferase (ALT/SGPT) 11 U/L (12-78) Total Bilirubin 0.7 MG/DL (0.2-1.0) Sodium Level 147 MEQ/L (136-145) Potassium Level 4.1 MEQ/L (3.5-5.1) Chloride Level 116 MEQ/L (98-107) Carbon Dioxide Level 16.9 MEQ/L (21.0-32.0) Anion Gap 14 MEQ/L (5-15) Estimat Glomerular Filtration Rate 16 ML/MIN (>89) . Result Diagram: 08/03/17 0358 08/03/17357 Imaging Last 72 hours Impressions Chest X-Ray 08/03/17 0600 Signed Impressions: Service Date/Time: Thursday, August 03, 2017 04:54 - CONCLUSION: Stable chest x-ray with bibasilar opacities representing either atelectasis, consolidation, and/or pleural effusion. Overall, stable examination. Ra Pulliam MD Chest X-Ray 08/02/17 0600 Signed Impressions: Service Date/Time: Wednesday, August 02, 2017 04:29 - CONCLUSION: Stable chest x-ray with bilateral pleural effusions with associated volume loss and/or airspace consolidation. Ra Pulliam MD Lower Extremity Ultrasound 08/02/17 0000 Signed Impressions: Service Date/Time: Wednesday, August 02, 2017 10:40 - CONCLUSION: No evidence of DVT. Danyel Bear MD Chest X-Ray 08/01/17 06 Signed Impressions: Service Date/Time: Tuesday, August 01, 2017 04:52 - CONCLUSION: Stable chest x-ray with bilateral pleural effusions with associated volume loss and or airspace consolidation. Ra Pulliam MD Renal Ultrasound 08/01/17 0000 Signed Impressions: Service Date/Time: Tuesday, August 01, 2017 14:46 - CONCLUSION: There is no hydronephrosis or stone. Bilateral pleural effusions.. Angel Brown MD FACR Head CT 08/01/17 0000 Signed Impressions: Service Date/Time: Tuesday, August 01, 2017 13:51 - CONCLUSION: 1. Stable intraparenchymal, subdural, and intraventricular hemorrhage. No midline shift or new sites of hemorrhage. Pepe Segura Jr., MD . Procedures 07/30/2017: Intubation 07/30/2017: ICP monitor placed . Patient/Family Conference Present at Family Conference: Spoke with patient's (Kristin) at bedside. Privately spoke with son (Darryn) in the hallway, daughter (Danielle) participated for a short period of time via telephone. . Family Conference Location: Bedside, Hallway, Telephone Issues Discussed: * Palliative care role, purpose, approach * Additional medical, psychosocial, and spiritual history * Patients general health, functional status, and cognitive changes in the months leading up to the current hospitalization * Patient/family understanding of the current medical problems * Patient/family understanding of prognosis * Patients goals of care as best understood from advance directives and/or conversations and/or values * Current medical treatment options and benefits/burdens of those options * Likely scenarios comparing ongoing aggressive care with a transition to comfort measures only * Questions answered to the best of my ability * Palliative care contact information provided . Assessment and Plan Disease Oriented Problem List: (1) Congestive heart failure (2) Anemia (3) Acute kidney insufficiency (4) Respiratory failure (5) Hypertensive emergency (6) Intracranial bleed (7) Edema due to congestive heart failure (8) Major neurocognitive disorder as late effect of traumatic brain injury without behavioral disturbance Symptom Scale: (1) Pain (2) Encephalopathy (3) Dyspnea Pertinent Non-Medical Issues Psychosocial: Patient is originally from [place]. He dated his (Kristin ) in high school, and they have now been for approximately 62 years. 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 Together they have 4 adult children, 10 grandchildren and 5 great-grandchildren. Spiritual: Mandaen thanh Legal: Unclear. Per [place] statutes, in the absence of written advance directives healthcare proxy decision making would fall to the patient's . Patient also has 4 adult children. Danielle and Darryn who live locally have verbally indicated that Danielle is the healthcare surrogate decision maker. Awaiting copies of documentation which should be received tomorrow 08/03/17 Ethical issues impacting care: No known ethical issues impacting care. . Important Contacts Kristin Alonzo, : [phone] Danielle Adkins, daughter: [phone] Darryn Alonzo, son: [phone] . Prognosis Patient is an 82-year-old male who has suffered severe brain trauma which is complicated by multiple comorbid conditions. Prognosis is very poor, and the patient may not survive this hospitalization. . Code Status: Full Code Plan * FULL CODE * Decision making: Unclear. Per [place] statutes, in the absence of written advance directives healthcare proxy decision making would fall to the patient's . However patient's appears to have some mild cognitive deficit and does not appear to be capacitated to make medical decisions for her at this time. Patient also has 4 adult children. Danielle and Darryn who live locally have verbally indicated that Danielle is the healthcare surrogate decision maker. Awaiting copies of documentation which should be received tomorrow 08/03/17 * AGGRESSIVE GOALS for the next 2-3 days. Patient's son states his father would NOT want to be on artificial life support for prolonged period of time, including dialysis. The family does wish to proceed with dialysis in this acute phase if it is indicated. * Symptom management: = Encephalopathy: Patient remains encephalopathic status post subdural and subarachnoid hemorrhages. Sedated on propofol and fentanyl 100 mcg. Patient withdraws lower extremities to noxious stimuli. Family requesting EEG. Explained to family that we can assess patient's neurological status during sedation vacation when he is stable. = Dyspnea: Patient remains intubated on mechanical ventilation with increasing oxygen and PEEP requirements today 08/03/17. Currently on 50% FiO2, PEEP 10. Patient clinically exhibiting signs of fluid overload, being diuresis. Follow-up chest x-ray stable with bibasilar opacities representing either atelectasis, consolidation, and/or pleural effusion. BNP was 198 on 07/31/2017. * Palliative care contact information provided to patient's family. * Palliative care will follow this patient throughout his hospitalization to establish trust, assist with symptom management and clarification of medical treatment goals . Thank you for the opportunity to participate in the care of Mr. Alonzo. . Attestation To help prompt me to consider important information that might be impacting today's encounter and assessment, information from prior notes written by myself or my colleagues may have been "brought forward" into today's note. My signature on this note, however, is an attestation that I personally performed the exam, history, and/or decision-making noted today, and, unless otherwise indicated, the interactions with patient, family, and staff as well as the review of records all occurred today. I also attest that the listed assessment and stated plan reflect my best clinical judgment today based on the combination of historical information, prior notes, and today's exam/ interactions. When time spent is documented, it refers only to time spent today by the signer, or if indicated, combined time spent today by collaborating physician/nurse practitioner. . Elyssa Ricardo Aug 03, 2017 15:34
--- NOTE | 2017-08-03 15:37 | HHI.NPPN ---
Subjective History of Present Illness This patient is an 82-year-old male who unfortunately cannot provide any history secondary to head injury, intubated status on a ventilator. History obtained from records and from his daughter. Limited history available. Family patient has a history suggesting peripheral vascular disease, congestive heart failure, chronic lower extremity edema with dyspnea, chronic renal sufficiency?. According to the patient's daughter he was hospitalized back in 2013 at [facility]. Developed a ruptured appendix post colonoscopy subsequently developing acute renal failure and requiring laparotomy. According to the patient's daughter he was on dialysis temporarily. Not following up with a hourly caregiver routinely in recent times. They cannot recall name of his primary care physician currently also. Patient apparently fell short distance from a ladder and hit his head and subsequently has been diagnosed as having a subdural as well as subarachnoid hemorrhage. Creatinine was elevated at the time of presentation at 1.5 and chest x-ray showed evidence of congestive heart failure and the patient had a hemoglobin that was only 7.4. Echocardiogram performed July 31, 2017 revealed an ejection fraction of 50-55%. Patient's albumin on presentation his low with a low corrected calcium 7.8. Interval History No change neurologically UOP marginal with aggressive diuresis and son present in the room. (Olamide Garcia) Review of Systems General General Remarks Unable to obtain (Olamide Garcia) Objective Data Data 08/03/17 08/04/17 19:00 07:00 Intake Total 1780 ml Balance 1780 ml IV Total 80 ml Packed Cells 800 ml Blood Product IV Normal Saline Flush 900 ml Vital Signs Date Time Temp Pulse Resp B/P (MAP) Pulse Ox O2 Delivery O2 Flow Rate FiO2 08/03/17 15:17 99 50 08/03/17 14:20 97.7 56 12 161/72 99 08/03/17 14:00 63 08/03/17 12:35 97.7 59 12 149/68 99 08/03/17 12:25 58 08/03/17 12:20 97.9 58 12 150/69 98 08/03/17 12:06 97.9 57 12 149/67 99 08/03/17 12:00 97.9 60 12 149/67 (94) 99 08/03/17 12:00 60 08/03/17 11:49 99 50 08/03/17 10:48 97.9 52 12 168/68 99 08/03/17 10:36 97.9 59 12 146/67 99 08/03/17 10:29 98.1 56 12 141/63 99 08/03/17 10:00 57 08/03/17 08:00 98.1 60 21 152/68 (96) 100 08/03/17 08:00 60 08/03/17 07:55 100 60 08/03/17 06:39 99 65 08/03/17 06:00 52 08/03/17 06:00 60 08/03/17 04:00 75 08/03/17 04:00 97.5 62 12 135/61 (85) 99 08/03/17 04:00 62 08/03/17 03:34 99 75 08/03/17 02:00 60 08/03/17 00:58 77 157/69 08/03/17 00:00 99.7 74 12 156/69 (98) 99 08/03/17 00:00 74 08/03/17 00:00 75 08/02/17 23:41 99 75 08/02/17 22:00 72 08/02/17 20:00 85 08/02/17 20:00 98.8 85 12 179/77 (111) 99 08/02/17 20:00 75 08/02/17 19:42 96 75 08/02/17 19:28 84 166/73 08/02/17 18:00 63 08/02/17 16:00 65 08/02/17 16:00 60 08/02/17 16:00 98.2 60 12 140/65 (90) 100 08/02/17 15:38 100 70 (Olamide Garcia) -: 08/03/17 0358 08/03/17 0358 Imaging Last Impressions Chest X-Ray 08/03/17 0600 Signed Impressions: Service Date/Time: Thursday, August 03, 2017 04:54 - CONCLUSION: Stable chest x-ray with bibasilar opacities representing either atelectasis, consolidation, and/or pleural effusion. Overall, stable examination. Ra Pulliam MD Lower Extremity Ultrasound 08/02/17 0000 Signed Impressions: Service Date/Time: Wednesday, August 02, 2017 10:40 - CONCLUSION: No evidence of DVT. Danyel Bear MD Renal Ultrasound 08/01/17 0000 Signed Impressions: Service Date/Time: Tuesday, August 01, 2017 14:46 - CONCLUSION: There is no hydronephrosis or stone. Bilateral pleural effusions.. Angel Brown MD FACR Head CT 08/01/17 0000 Signed Impressions: Service Date/Time: Tuesday, August 01, 2017 13:51 - CONCLUSION: 1. Stable intraparenchymal, subdural, and intraventricular hemorrhage. No midline shift or new sites of hemorrhage. Pepe Segura Jr., MD Shoulder X-Ray 07/31/17 0000 Signed Impressions: Service Date/Time: Monday, July 31, 2017 14:25 - CONCLUSION: No obvious fracture or dislocation. Degenerative changes. Prasanna Milan MD Cervical Spine CT 07/30/17 1202 Signed Impressions: Service Date/Time: Sunday, July 30, 2017 12:17 - CONCLUSION: 1. Negative for fracture. 2. Degenerative changes consisting of uncinate ridging with neural foramen encroachment without radiographically significant spinal stenosis. 3. Bilateral moderate sized pleural effusions seen on the lower slices through the upper lungs lungs. Angel Brown MD FACR Medication Review Current Medications Medications (Trade) Dose Ordered Sig/Juliet Route Start Time Stop Time Status Last Admin (NS Flush) 2 ml UNSCH PRN IV FLUSH 07/30/17 12:45 08/03/17 09:43 (Zofran Inj) 4 mg Q6H PRN IV PUSH 07/30/17 12:45 Miscellaneous Information 1 Q361D XX 07/30/17 12:45 (Chlorhexidine 2% Cloth) 3 pack Taper DAILY@04 TOP 07/31/17 04:00 07/27/18 03:59 08/03/17 04:00 (Chlorhexidine 2% Cloth) 3 pack UNSCH PRN TOP 07/30/17 12:45 (Peridex 0.12% Liq) 15 ml BID@08,20 MT 07/30/17 20:00 08/03/17 09:42 Fentanyl Citrate 250 ml @ 5 mls/hr TITRATE PRN IV 07/30/17 13:30 08/02/17 13:12 Propofol 100 ml @ 2.64 mls/hr TITRATE PRN IV 07/30/17 13:30 08/03/17 13:53 (Pepcid) 10 mg BID PO 07/30/17 21:00 08/03/17 09:43 Nicardipine HCl 25 mg/Sodium Chloride 250 ml @ 50 mls/hr TITRATE PRN IV 07/30/17 16:15 08/03/17 00:58 (Pravachol) 40 mg DAILY PO 07/31/17 09:00 08/03/17 09:43 (Lopressor) 25 mg Q12HR PO 07/31/17 09:00 08/03/17 09:43 (D50w (Vial) Inj) 50 ml UNSCH PRN IV PUSH 07/31/17 07:45 (Glucagon Inj) 1 mg UNSCH PRN OTHER 07/31/17 07:45 (Hytrin) 10 mg HS PO 07/31/17 21:00 08/02/17 21:34 (Apresoline) 100 mg Q12HR PO 07/31/17 09:00 08/03/17 09:44 Levetriacetam 500 mg/Sodium Chloride 105 ml @ 420 mls/hr Q12HR IV 08/01/17 10:00 08/03/17 09:42 Miscellaneous Information 1 Q7D T-DERMAL 08/08/17 16:00 (Jackelyn-Colace) 1 tab BID PO 08/01/17 21:00 08/03/17 09:43 (Lactulose Liq) 30 ml DAILY PO 08/01/17 16:15 08/03/17 09:43 (Dulcolax Supp) 10 mg DAILY PRN RECTAL 08/01/17 16:15 (Catapres-Tts 0.2 Mg Patch.7d) 1 patch Q7D T-DERMAL 08/01/17 20:00 08/01/17 20:31 Miscellaneous Information 1 Q7D T-DERMAL 08/01/17 20:00 (NovoLOG SUPPLEMENTAL SCALE) 1 Q6HR SQ 08/01/17 18:00 (Diuril Inj) 500 mg Q12H IV 08/03/17 01:00 08/03/17 12:54 (Lasix Inj) 80 mg BID@,18 IV PUSH 08/02/17 18:00 08/03/17 09:44 (Duoneb Neb) 1 ampule Q6HR NEB NEB 08/02/17 22:00 08/03/17 15:17 (Olamide Garcia) Physical Exam General Appearance: Comfortable, Obese (Olamide Garcia) Eyes Eye Exam: Sclera White (Olamide Garcia) Pulmonary Resp Exam: Breath Sounds Equal, No Distress, Decreased Bases (Olamide Garcia) Cardiology CV Exam: Regular, Normal Sinus Rhythm (Olamide Garcia) Gastrointestinal/Abdomen GI Exam: Non-Tender, Distended (Olamide Garcia) Extremeties Extremities Exam: Moderate Edema, Pitting Edema, Dependent Edema (diffuse edema involving all extremities, hips and dependent torso.) (Olamide Garcia) Neurologic Neuro Exam: Sedated (Olamide Garcia) Assessment/Plan Discussed Condition With: Relative Problem List: (1) Acute kidney insufficiency ICD Codes: N28.9 - Disorder of kidney and ureter, unspecified Status: Acute Plan: Despite increase in diuretics, UOP marginal. Still with significant edema Renal functions worsening. Had long discussion with the family present and current situation. Given his azotemia and marginal urine output, he may require dialytic intervention within the next 24-48h. Yesterday, they seemed to be leaning to more conservative treatment (i.e.non- dialytic management), but today, the and son are pursuant of more aggressive measures including dialysis if needed. They were advised of the potential risks involving dialysis including cardiac arrhythmia and . To continue on Lasix and Diuril as before. We will monitor for the next 24h. If no improvement, we will proceed with dialysis as per the family wishes. This may or may not be a permanent necessity. The son was advised that dialysis does not "give the kidneys a break" as he was under the impression that was a perk of proceeding. Discussion between the family and critical care appreciated given likely poor neurological outcome. (2) CKD (chronic kidney disease) stage 3, GFR 30-59 ml/min ICD Codes: N18.3 - Chronic kidney disease, stage 3 (moderate) Plan: Baseline renal function unknown. Patient currently has a history of chronic lower extremity edema and dyspnea. Unfortunately previous records not available but I suspect that the patient has a component of chronic CHF. 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 Also previous history of acute renal failure may have resulted in significant deterioration in his baseline renal function but those records are not available to me currently. (3) Congestive heart failure ICD Codes: I50.9 - Heart failure, unspecified Plan: Continue furosemide and Diuril as ordered. Monitor response. Most likely has some degree of diastolic dysfunction as EF was reported as being 50-55%. (4) Edema due to congestive heart failure ICD Codes: I50.9 - Heart failure, unspecified Plan: In addition patient does have evidence of hypoalbuminemia. Need to determine as the patient has significant proteinuria. UPCR pending (5) Hypocalcemia ICD Codes: E83.51 - Hypocalcemia Plan: Start Vitamin D (6) Anemia ICD Codes: D64.9 - Anemia, unspecified (Olamide Garcia) Plan The exam, history, and the medical decision-making described in the above note were completed with the assistance of the PA-C. I reviewed and agree with the findings presented. I attest that I had a [id number] encounter with the patient on the same day, and personally performed and documented my assessment and findings in the medical record. (Michell Chavez MD) Problem Qualifiers (1) Congestive heart failure: Olamide Garcia Aug 03, 2017 15:37 Michell Chavez MD Aug 04, 2017 19:22
--- NOTE | 2017-08-03 15:44 | HHI.CCPN ---
Subjective Brief History 82-year-old gentleman who fell backwards off of a ladder with brief loss of consciousness and brief round of CPR at the scene was brought in as a level II trauma alert intubated in the trauma bay and upgraded to level I. He was found to have subdural and subarachnoid hemorrhages and was given 2 units of platelets for platelet dysfunction secondary to Plavix use. Final injuries Right temporal intraparenchymal hemorrhage with slight subdural component Left frontoparietal and temporo-occipital subdural hematoma about 1 cm thick Patient has complex history of CHF,coronary artery disease, diabetes mellitus and chronic renal insufficiency requiring dialysis in 2013. Since then patient has been off dialysis but at this point creatinine is rising. 24 Hour Review/Hospital Course 07/[address] appears to be worse today with slight increase in the size of his bleeds Is currently on a Cardene drip to maintain systolic blood pressure less than 160 , his beta stacie has been held for a heart rate in the mid 50s 08/01/2017 Patient is intubated ventilated on propofol and fentanyl ICP measurements about 5-8 mmHg Remains sedated not moving any extremities at this time Hemodynamically patient is stable with hypertension. Patient is noted to be hypertensive from home and some of medications have been reinstituted In addition to Lopressor and hydralazine patient is currently on Cardene drip in order to keep systolic blood pressure under 160 mmHg Patient will need Catapres patch in order to wean off Cardene In face of increased creatinine and BUN patient did not have IV contrast to assess the chest and abdomen but externally there are no signs of trauma to either Renal function as above noted is impaired with rising creatinine and BUN. Nephrology consult from Dr. Chavez is greatly appreciated Patient will be managed expectantly and as the neurologic function improves sedation will be gradually weaned It should be noted that severe brain trauma in this age group with related medical problems survival is very low and patient is a high mortality probably in the range of 80-90%. 08/02/2017 Patient remains intubated ventilated and sedated with all neuroprotective measures Hemodynamically patient is stable and hypertensive on several antihypertensive drugs including Cardene noted to keep systolic blood pressure under 160 mmHg Bilateral breath sounds remains ventilatory dependent in the face of decreased level of consciousness On assist control ventilation 40% FiO2 Abdomen soft nontender will start on enteral feedings Nephrology help is greatly appreciated in the care of this patient with marginal renal function and he may need intermittent dialysis should his fluid status worsened and he becomes fluid overloaded 08/03/17 severe TBI on elderly patient with multiple medical issues PRINCE superimposed on chronic renal failure compensated metabolic acidosis secondary due to renal failure diuresis initiated by front office attendant zafar for BP control Objective Vital Signs Date Time Temp Pulse Resp B/P (MAP) Pulse Ox O2 Delivery O2 Flow Rate FiO2 08/03/17 15:17 99 50 08/03/17 14:20 97.7 56 12 161/72 07/30/17 20:30 Mechanical Ventilator 07/30/17 13:00 15.00 Intake and Output 08/03/17 08/03/17 08/04/17 08:00 16:00 00:00 Intake Total 20 ml 1760 ml Output Total 650 ml Balance -630 ml 1760 ml Result Diagram: 08/03/17 0358 08/03/17 0358 Other Results Laboratory Tests Test 08/03/17 03:57 Blood Gas Puncture Site RT RADIAL Blood Gas Patient Temperature 98.6 Blood Gas HCO3 16 mmol/L (22-26) Blood Gas Base Excess -8.7 mmol/L (-2-2) Blood Gas Oxygen Saturation 98 % (90-100) Arterial Blood pH 7.33 (7.380-7.420) Arterial Blood Partial Pressure CO2 32 mmHg (38-42) Arterial Blood Partial Pressure O2 210 mmHg (61-120) Arterial Blood Oxygen Content 11.3 Vol % (12.0-20.0) Arterial Blood Carboxyhemoglobin 0.9 % (0-4) Arterial Blood Methemoglobin 0.9 % (0-2) Blood Gas Hemoglobin 7.8 G/DL (12.0-16.0) Oxygen Delivery Device VENTILATOR Blood Gas Ventilator Setting [facility] AC Blood Gas Inspired Oxygen 75 % Imaging Last 24 hours Impressions Chest X-Ray 08/03/17 0600 Signed Impressions: Service Date/Time: Thursday, August 03, 2017 04:54 - CONCLUSION: Stable chest x-ray with bibasilar opacities representing either atelectasis, consolidation, and/or pleural effusion. Overall, stable examination. Ra Pulliam MD Exam [employer] GCS 5 T Hemodynamic/Cardiac hypertensive Pulmonary/Respiratory mechanical ventilation Abdomen/GI Nutrition soft,mildly distended Renal/I&O cr 3.58 Vascular Central Line Catheter Vascular Central Line Catheter: Yes Assessment and Plan Plan Subarachnoid and subdural hemorrhages following fall with a platelets dysfunction secondary to Plavix -Continue supportive care and monitoring per neurosurgery -Continue full ventilator support -Transfuse 2 units of packed cells. -Start tube feeds today for nutritional support -Patient has an elevated BUN/creatinine -nephrology on board -restart tube feeds-trophic first-may need prokinetic agent if does not tolerate -overall poor prognosis-palliative care consult Rebeca Vines MD Aug 03, 2017 15:44
[2017-08-03] MEDS: fentaNYL 2,500 MCG/NS 250 ML IV PRN (16:56)
--- NOTE | 2017-08-03 18:49 | PD.CONS ---
HPI Service Rehabilitation Medicine Consult Requested By [facility] trauma service Reason for Consult Comprehensive rehabilitation evaluation. Primary Care Physician Unknown History of Present Illness Brooks Alonzo is an 82-year-old male admitted to [facility] 07/30/17 after fall from a ladder backward 10 feet. CPR was initiated. Patient was intubated. Head CT 07/30/17 showed: extra axial hemorrhage on the left beginning along the temporal tip extending over the high convexities of the parietal region where it measures up to 8 mm across. Subarachnoid hemorrhage both temporal tips. Small subdural on the right along the temporal region 3-4 mm across. Follow-up head CT 08/01/17 showed:. stable intraparenchymal, subdural, and intraventricular hemorrhage. No midline shift or new sites of hemorrhage Repeat head CT is scheduled for 08/04/17 per neurosurgery. Patient is noted to have decompensated chronic systolic heart failure with cardiomegaly and pulmonary edema. BUN and creatinine have been elevated. On 08/03/17 BUN was 58 creatinine 3.62. Nephrology is following regarding the need for dialysis. Review of Systems ROS Limitations: Intubated Past Family Social History Allergies: Coded Allergies: Iodinated Contrast- Oral and IV Dye (Verified Adverse Reaction, Severe, 08/02/17) Patient had contrast dye in the past. This caused kidney failure requiring several rounds of dialysis. Past Medical History Congestive heart failure Peripheral vascular disease Coronary artery disease Diabetes mellitus Chronic renal insufficiency requiring dialysis in 2013 Past Surgical History None listed Current Medications Current Medications Medications (Trade) Dose Ordered Sig/Juliet Route Start Time Stop Time Status Last Admin (NS Flush) 2 ml UNSCH PRN IV FLUSH 07/30/17 12:45 08/03/17 09:43 (Zofran Inj) 4 mg Q6H PRN IV PUSH 07/30/17 12:45 Miscellaneous Information 1 Q361D XX 07/30/17 12:45 (Chlorhexidine 2% Cloth) 3 pack Taper DAILY@04 TOP 07/31/17 04:00 07/27/18 03:59 08/03/17 04:00 (Chlorhexidine 2% Cloth) 3 pack UNSCH PRN TOP 07/30/17 12:45 (Peridex 0.12% Liq) 15 ml BID@08,20 MT 07/30/17 20:00 08/03/17 09:42 Fentanyl Citrate 250 ml @ 5 mls/hr TITRATE PRN IV 07/30/17 13:30 08/03/17 16:56 Propofol 100 ml @ 2.64 mls/hr TITRATE PRN IV 07/30/17 13:30 08/03/17 13:53 (Pepcid) 10 mg BID PO 07/30/17 21:00 08/03/17 09:43 Nicardipine HCl 25 mg/Sodium Chloride 250 ml @ 50 mls/hr TITRATE PRN IV 07/30/17 16:15 08/03/17 17:42 (Pravachol) 40 mg DAILY PO 07/31/17 09:00 08/03/17 09:43 (Lopressor) 25 mg Q12HR PO 07/31/17 09:00 08/03/17 09:43 (D50w (Vial) Inj) 50 ml UNSCH PRN IV PUSH 07/31/17 07:45 (Glucagon Inj) 1 mg UNSCH PRN OTHER 07/31/17 07:45 (Hytrin) 10 mg HS PO 07/31/17 21:00 08/02/17 21:34 (Apresoline) 100 mg Q12HR PO 07/31/17 09:00 08/03/17 09:44 Levetriacetam 500 mg/Sodium Chloride 105 ml @ 420 mls/hr Q12HR IV 08/01/17 10:00 08/03/17 09:42 Miscellaneous Information 1 Q7D T-DERMAL 08/08/17 16:00 (Jackelyn-Colace) 1 tab BID PO 08/01/17 21:00 08/03/17 09:43 (Lactulose Liq) 30 ml DAILY PO 08/01/17 16:15 08/03/17 09:43 (Dulcolax Supp) 10 mg DAILY PRN RECTAL 08/01/17 16:15 (Catapres-Tts 0.2 Mg Patch.7d) 1 patch Q7D T-DERMAL 08/01/17 20:00 08/01/17 20:31 Miscellaneous Information 1 Q7D T-DERMAL 08/01/17 20:00 (NovoLOG SUPPLEMENTAL SCALE) 1 Q6HR SQ 08/01/17 18:00 (Diuril Inj) 500 mg Q12H IV 08/03/17 01:00 08/03/17 12:54 (Lasix Inj) 80 mg BID@, IV PUSH 08/02/17 18:00 08/03/17 17:42 (Duoneb Neb) 1 ampule Q6HR NEB NEB 08/02/17 22:00 08/03/17 15:17 Family History Unavailable Social History Prior to admission patient lived in [place], [place]. Exam I&O / VS 08/03/17 08/03/17 08/04/17 14:59 22:59 06:59 Intake Total 1780 ml 78 ml Balance 1780 ml 78 ml IV Total 80 ml 78 ml Packed Cells 800 ml Blood Product IV Normal Saline Flush 900 ml Vital Signs Date Time Temp Pulse Resp B/P (MAP) Pulse Ox O2 Delivery O2 Flow Rate FiO2 08/03/17 18:00 55 08/03/17 17:42 54 131/60 08/03/17 16:00 50 08/03/17 16:00 55 08/03/17 16:00 97.7 55 12 145/64 (91) 98 08/03/17 15:44 55 162/73 08/03/17 15:17 99 50 08/03/17 14:20 97.7 56 12 161/72 99 08/03/17 14:00 63 08/03/17 12:35 97.7 59 12 149/68 99 08/03/17 12:25 58 08/03/17 12:20 97.9 58 12 150/69 98 08/03/17 12:06 97.9 57 12 149/67 99 08/03/17 12:00 50 08/03/17 12:00 97.9 60 12 149/67 (94) 99 08/03/17 12:00 60 08/03/17 11:49 99 50 08/03/17 10:48 97.9 52 12 168/68 99 08/03/17 10:36 97.9 59 12 146/67 99 08/03/17 10:29 98.1 56 12 141/63 99 08/03/17 10:00 57 08/03/17 09:20 50 08/03/17 08:00 98.1 60 21 152/68 (96) 100 08/03/17 08:00 60 08/03/17 08:00 60 08/03/17 07:55 100 60 08/03/17 06:39 99 65 3/7/18 06:00 52 08/03/17 06:00 60 08/03/17 04:00 75 08/03/17 04:00 97.5 62 12 135/61 (85) 99 08/03/17 04:00 62 08/03/17 03:34 99 75 08/03/17 02:00 60 08/03/17 00:58 77 157/69 08/03/17 00:00 99.7 74 12 156/69 (98) 99 08/03/17 00:00 74 08/03/17 00:00 75 08/02/17 23:41 99 75 08/02/17 22:00 72 08/02/17 20:00 85 08/02/17 20:00 98.8 85 12 179/77 (111) 99 08/02/17 20:00 75 08/02/17 19:42 96 75 08/02/17 19:28 84 166/73 General: Intubated, Sedated Respiratory: Lungs CTA, Non-labored respirations, Coarse breath sounds Gastrointestinal: Positive Bowel Sounds, Distended Cardiovascular: Normal rate, Regular Rhythm Orientation: unable to asses Self, unable to asses Place, unable to asses Time , unable to asses Situation Neurologic: Pupils (3 mm and sluggish), Facial Symmetry (Symmetric), Other ( Tone and range of motion are grossly within normal limits) Clonus: Negative Assessment and Plan Diagnosis: (1) Traumatic brain injury ICD Codes: S06.9X9A - Unspecified intracranial injury with loss of consciousness of unspecified duration, initial encounter Qualifiers: Encounter type: initial encounter Assessment 1. Fall from a ladder 07/30/17 with traumatic brain injury including extra axial hemorrhage on the left beginning along the temporal tip extending over the high convexities of the parietal region where it measures up to 8 mm across. Subarachnoid hemorrhage both temporal tips.Small subdural on the right along the temporal region 3-4 mm across. 2. Decompensated chronic systolic heart failure with cardiomegaly and pulmonary edema. 3. Chronic renal insufficiency.On 08/03/17 BUN was 58 creatinine 3.62. Nephrology is following regarding the need for dialysis 4. Coronary artery disease 5. Diabetes mellitus 6. PVD Plan 1. Physical therapy is following and patient is dependent for all mobility. Continue range of motion and positioning 2. Occupational therapy is following and dependent for ADLs 3. Return to reposition every 2 hours and monitor skin for breakdown 4. SCDs in place for DVT prophylaxis 5. Will follow in conjunction with case briefer regarding ongoing rehab needs. Palliative care is following 6. Will follow while hospitalized and at discharge is appropriate Thank you for this consult Adrienne Benavides MD Aug 03, 2017 18:49
[2017-08-03] MEDS: TERAZOSIN HCL 5 MG CAP PO SCH (20:32)
[2017-08-03 21:10] LABS: PROTHROMBIN TIME - PATIENT 10.2 SEC (9.8-11.6)
[2017-08-04] VITALS (19 sets, daily range): BP systolic 144–174; BP diastolic 67–75; PULSE 60–85; RESP 12–22; TEMP 97.2–99; O2SAT 96–99
[2017-08-04] MEDS: CHLOROTHIAZIDE SOD 500 MG VIAL IV SCH ×2 (00:19→12:44)
[2017-08-04] MEDS: niCARdipine INJ 25 MG in SODIUM CHLOR 0.9% 250 ML INJ 240 ML IV PRN ×13 (00:20→22:15)
[2017-08-04] MEDS: RESP: ALBUTEROL 2.5 MG/IPRATROPIUM 0.5 MG NEB (SCH) NEB ×4 (03:07→22:00)
[2017-08-04 04:05] LABS: AUTOMATED NEUTROPHIL # 8.1 TH/MM3 (1.8-7.7); BASOPHIL % 0.2 % (0.0-2.0); EOSINOPHIL # 0.1 TH/MM3 (0-0.4); HEMATOCRIT 25.9 % (39.0-51.0); HEMOGLOBIN 8.9 GM/DL (13.0-17.0); LYMPH % 4.4 % (9.0-44.0); LYMPHOCYTE # 0.4 TH/MM3 (1.0-4.8); MEAN CELL VOLUME 85.2 FL (80.0-100.0); MEAN CORPUSCULAR HEMOGLOBIN 29.2 PG (27.0-34.0); MEAN CORPUSCULAR HGB CONC 34.3 % (32.0-36.0); MEAN PLATELET VOLUME 10.3 FL (7.0-11.0); MONO % 10.8 % (0.0-8.0); NEUT % 83.6 % (16.0-70.0); PLATELET COUNT 112 TH/MM3 (150-450); RED BLOOD COUNT 3.04 MIL/MM3 (4.50-5.90); RED CELL DISTRIBUTION WIDTH 24.9 % (11.6-17.2); WHITE BLOOD COUNT 9.7 TH/MM3 (4.0-11.0)
[2017-08-04] MEDS: CHLORHEXIDINE GLUCONATE 2 % 1 PACK (2 CLOTHS) TOP SCH (04:05)
[2017-08-04 04:28] LABS: ALBUMIN 2.2 GM/DL (3.4-5.0); CALCIUM 7.9 MG/DL (8.5-10.1); CREATININE 3.93 MG/DL (0.60-1.30); PHOSPHORUS 7.4 MG/DL (2.5-4.9)
[2017-08-04 04:30] LABS: ALBUMIN 2.2 GM/DL (3.4-5.0); AST (GOT) 16 U/L (15-37); BICARBONATE 15.7 MEQ/L (21.0-32.0); BLOOD UREA NITROGEN 63 MG/DL (7-18); CALCIUM 7.9 MG/DL (8.5-10.1); CHLORIDE 116 MEQ/L (98-107); CREATININE 4.03 MG/DL (0.60-1.30); GLOMERULAR FILTRATION RATE 14 ML/MIN (>89); GLUCOSE,RANDOM 128 MG/DL (74-106); SODIUM (NA) 147 MEQ/L (136-145)
[2017-08-04 04:34] LABS: ALKALINE PHOSPHATASE 128 U/L (45-117); ALT (GPT) 8 U/L (12-78); TOTAL BILIRUBIN ADULT 1.3 MG/DL (0.2-1.0); TOTAL PROTEIN 5.7 GM/DL (6.4-8.2)
--- NOTE | 2017-08-04 04:57 | RADRPT ---
EXAM DATE/TIME: 08/04/2017 04:37 [facility] COMPARISON: CT BRAIN W/O CONTRAST, August 01, 2017, 13:51. INDICATIONS : Evaluate hemorrhage. RADIATION DOSE: 52.52 CTDIvol (mGy) ; Tabletop CT Head MEDICAL HISTORY : Non-responsive. SURGICAL HISTORY : Non-responsive. ENCOUNTER: Initial ACUITY: 1 day PAIN SCALE: Non-responsive LOCATION: cranial TECHNIQUE: Multiple contiguous axial images were obtained of the head. Using automated exposure control and adj ustment of the mA and/or kV according to patient size, radiation dose was kept as low as reasonably a chievable to obtain optimal diagnostic quality images. DICOM format image data is available electro nically for review and comparison. FINDINGS: There is mild generalized atrophy. Ventricles are normal in size. Acute blood products layer in the o ccipital horns bilaterally, left greater than right. There are bilateral subdural hematomas, left lar dena than right. The left subdural hematoma is primarily in the temporoparietal region and measures up to 13 mm, stable from the prior study. There is a stable small right parieto-occipital subdural richar kizzy measuring up to a maximal thickness of 4 mm. There are hemorrhagic contusions involving the ante rior right temporal lobe and posterior left temporal lobe. No midline shift or herniation is present. Right frontal ICP monitor is in place in the frontal white matter. No skull fracture is visualized. There is mild right scalp soft tissue swelling. There is opacification of the paranasal sinuses with fluid in the mastoid air cells bilaterally. CONCLUSION: 1. Stable intracranial findings including bilateral subdural hematomas, intraventricular blood produc ts, and bilateral temporal lobe hemorrhagic contusions. There is no midline shift or herniation. Vent ricles are stable in size. 2. There is new fluid in the mastoid air cells and small air fluid levels bilaterally in the maxillar y antra. These changes may be related to intubation. Ra Pulliam MD on August 04, 2017 at 4:50 Board Certified Radiologist. This report was verified electronically.
[2017-08-04] MEDS: INSULIN ASPART SUPPLEMENTAL SCALE SQ SCH ×5 (06:00→23:48)
--- NOTE | 2017-08-04 06:42 | RADRPT ---
EXAM DATE/TIME: 08/04/2017 05:33 [facility] COMPARISON: CHEST SINGLE AP, August 03, 2017, 4:54. INDICATIONS : Follow up trauma. Short of breath. MEDICAL HISTORY : Hypertension. Congestive heart failure. Hypercholesterolemia. Diabetes. SURGICAL HISTORY : None. ENCOUNTER: Subsequent ACUITY: 4 - 6 days PAIN SCORE: Non-responsive. LOCATION: Bilateral chest FINDINGS: Portable AP view of the chest demonstrates a normal-sized cardiac silhouette with calcification of th e aorta. ETT and nasogastric tube remain present. Multiple EKG lines overlie the patient. There are s table small to moderate sized bibasilar pleuroparenchymal opacities. No pneumothorax is seen. CONCLUSION: Stable chest x-ray with bibasilar opacities most likely representing pleural effusions with associate d atelectasis and/or airspace consolidation. Ra Pulliam MD on August 04, 2017 at 6:39 Board Certified Radiologist. This report was verified electronically.
--- NOTE | 2017-08-04 07:57 | HHI.PR ---
Neuropsych Emotional Emotional: UnabletoAssess: Emotional, Anxious/Fearful, Depressed/Sad, Hostile/ Resentful, Irritable/Angry/Frustrate, Labile, Constricted/Blunted Behavior Behavior: Intact: Impulsive/Agitated, Unable to Asses: Behavior, Coping/ Acceptance, Cooperative w/ Treatment, Motivation, Frustration Tolerance/[place], Suicidal/Homicidal Risk Cognitive Cognitive: Unable to Asses: Cognitive, Attention/Concentration, Confused/ Orientation, Insight/Awareness, Judgement/Problem-Solving, Memory Psychosocial Psychosocial: Intact: Psychosocial, Family/Other Adjustment, Realistic Expectation, Unable to Asses: Self-Esteem/Confidence Progress Notes/Response to Tx Contents of Sessions: Adjustment, Level of Consciousness Time with Patient: 15 minutes Premorbid psychological status Premorbid Cognitive, Emotional and Behavioral Status: Tenuous. The patient has high school] years of education and is retired. The patient has no prior psychiatric difficulties, as described above. Substance abuse history is unremarkable. Behavioral Reactions of Patient and Family/Support System: Stable. The patient s family is experiencing ongoing issues of adjustment given the nature of the injury, and this aspect of recovery will require ongoing monitoring. Emotional/Behavioral Status of Patient and Family/Support System: Stable. Pertinent issues, if appropriate to this patients clinical care, are described in detail above. Maximizing acute care outcome It is recommended that the patient be monitored for emergent behavioral impulsivity as the medical condition evolves. This patients neuropathological challenges may limit his rehabilitation potential going forward, and these challenges will require specialized therapeutic skills to maximize outcome. Additionally, the patients family is experiencing ongoing issues of adjustment given the traumatic nature of the injury, and they may benefit from ongoing psychological assistance. At this point in the recovery process, the patient does not have cognitive capacity as the patient is unable to understand a situation and its likely consequences, nor is he able to manipulate information rationally. Cognitive capacity will be assessed throughout the recovery process. Anticipated Problems Ongoing areas of concern will include behavioral impulsivity, lack of insight and judgment, which is expected to improve with time and treatment. Presently , the patient is intubated and sedated. Treatment Plan This clinician will continue to follow with you throughout the course of this patients critical care treatment, and I will be available to meet with the patients family/support system to facilitate their understanding and the ongoing care of their family member. The goals of neuropsychological intervention shall be both educational and supportive to the family/support system as is deemed clinically appropriate. [facility] Level: I:No response-total assistance Impression 82 y/o male s/p TBI 2T fall on 07/30/2017. Diagnosis: (1) Major neurocognitive disorder as late effect of traumatic brain injury without behavioral disturbance Progress Note Narrative PTD 5. The patient remains intubated and sedated. He suffered a severe TBI with multiple medical challenges. He has become acidotic 2T renal failure. His chances for a meaningful neurobehavioral recovery are quite limited. He remains [place], with no issues of agitation or restlessness. I will follow. Micah Sotelo PhD Aug 04, 2017 7:57 am
[2017-08-04] MEDS: CHLORHEXIDINE 0.12% (ORAL KIT) 15 ML CUP MT SCH ×2 (08:15→19:59)
[2017-08-04] MEDS: levETIRAcetam INJ 500 MG in SODIUM CHLORIDE 0.9% INJ 100 ML IV SCH ×2 (08:17→20:44)
[2017-08-04] MEDS: FUROSEMIDE 40 MG/4 ML VIAL IV PUSH SCH ×2 (08:17→18:34)
[2017-08-04] MEDS: LACTULOSE SYRUP 20 GM/30 ML CUP PO SCH (08:17)
[2017-08-04] MEDS: PRAVASTATIN SOD 40 MG TAB PO SCH (08:18)
[2017-08-04] MEDS: FAMOTIDINE 20 MG TAB PO SCH ×2 (08:18→20:46)
[2017-08-04] MEDS: DOCUSATE SODIUM 50 MG/SENNA 8.6 MG TAB PO SCH ×2 (08:18→20:46)
[2017-08-04] MEDS: hydrALAZINE HCL 100 MG TAB PO SCH ×2 (08:18→20:46)
[2017-08-04] MEDS: METOPROLOL TARTRATE 5 MG/5 ML VIAL IV PUSH SCH ×3 (10:13→21:36)
--- NOTE | 2017-08-04 11:22 | HHI.CCPN ---
Subjective Brief History 82-year-old gentleman who fell backwards off of a ladder with brief loss of consciousness and brief round of CPR at the scene was brought in as a level II trauma alert intubated in the trauma bay and upgraded to level I. He was found to have subdural and subarachnoid hemorrhages and was given 2 units of platelets for platelet dysfunction secondary to Plavix use. Final injuries Right temporal intraparenchymal hemorrhage with slight subdural component Left frontoparietal and temporo-occipital subdural hematoma about 1 cm thick Patient has complex history of CHF,coronary artery disease, diabetes mellitus and chronic renal insufficiency requiring dialysis in 2013. Since then patient has been off dialysis but at this point creatinine is rising. 24 Hour Review/Hospital Course 07/[address] appears to be worse today with slight increase in the size of his bleeds Is currently on a Cardene drip to maintain systolic blood pressure less than 160 , his beta stacie has been held for a heart rate in the mid 50s 08/01/2017 Patient is intubated ventilated on propofol and fentanyl ICP measurements about 5-8 mmHg Remains sedated not moving any extremities at this time Hemodynamically patient is stable with hypertension. Patient is noted to be hypertensive from home and some of medications have been reinstituted In addition to Lopressor and hydralazine patient is currently on Cardene drip in order to keep systolic blood pressure under 160 mmHg Patient will need Catapres patch in order to wean off Cardene In face of increased creatinine and BUN patient did not have IV contrast to assess the chest and abdomen but externally there are no signs of trauma to either Renal function as above noted is impaired with rising creatinine and BUN. Nephrology consult from Dr. Chavez is greatly appreciated Patient will be managed expectantly and as the neurologic function improves sedation will be gradually weaned It should be noted that severe brain trauma in this age group with related medical problems survival is very low and patient is a high mortality probably in the range of 80-90%. 08/02/2017 Patient remains intubated ventilated and sedated with all neuroprotective measures Hemodynamically patient is stable and hypertensive on several antihypertensive drugs including Cardene noted to keep systolic blood pressure under 160 mmHg Bilateral breath sounds remains ventilatory dependent in the face of decreased level of consciousness On assist control ventilation 40% FiO2 Abdomen soft nontender will start on enteral feedings Nephrology help is greatly appreciated in the care of this patient with marginal renal function and he may need intermittent dialysis should his fluid status worsened and he becomes fluid overloaded 08/03/17 severe TBI on elderly patient with multiple medical issues PRINCE superimposed on chronic renal failure compensated metabolic acidosis secondary due to renal failure diuresis initiated by spinner operator zafar for BP control 08/04/2018 Patient this point is off sedation however there is no appreciable neurologic function except for some movement of upper extremities Riley Coma Scale 4 Hemodynamically patient is stable however quite hypertensive on multiple medications and even on Cardene drip difficulty controlling systolic blood pressure Cardiology help is greatly appreciated. Cardiac function intact and no signs of contusion or acute injury to the heart Bilateral breath sounds decreased over the right base were patient has a infiltrate in the right lower lobe Remains on assist control ventilation fully supported not breathing over the respirator but with good PO2 FiO2 gradient Abdomen is soft and enteral feeds of tolerated Renal function is gradually deteriorating and patient had underlying renal insufficiency prior to this event. He was on dialysis few years ago in an unrelated episode. At this point in discussions with family there is some ambiguity about which way to go. This patient has 90% mortality in 100% morbidity and most likely in the best case scenario patient will require tracheostomy feeding tube and will remain bedridden permanently Objective Vital Signs Date Time Temp Pulse Resp B/P (MAP) Pulse Ox O2 Delivery O2 Flow Rate FiO2 08/04/17 10:00 70 08/04/17 09:56 167/71 08/04/17 09:47 50 08/04/17 08:21 97 08/04/17 04:00 98.2 13 Intake and Output 08/04/17 08/04/17 08/05/17 08:00 16:00 00:00 Intake Total 500 ml Output Total 1125 ml Balance -625 ml Result Diagram: 08/04/17 0246 08/04/17 0246 Other Results Laboratory Tests Test 08/04/17 06:30 Blood Gas Puncture Site RT RADIAL Blood Gas Patient Temperature 98.6 Blood Gas HCO3 14 mmol/L (22-26) Blood Gas Base Excess -11.6 mmol/L (-2-2) Blood Gas Oxygen Saturation 95 % (90-100) Arterial Blood pH 7.31 (7.380-7.420) Arterial Blood Partial Pressure CO2 28 mmHg (38-42) Arterial Blood Partial Pressure O2 97 mmHg (61-120) Arterial Blood Oxygen Content 12.4 Vol % (12.0-20.0) Arterial Blood Carboxyhemoglobin 1.2 % (0-4) Arterial Blood Methemoglobin 1.1 % (0-2) Blood Gas Hemoglobin 9.2 G/DL (12.0-16.0) Oxygen Delivery Device VENTILATOR Blood Gas Ventilator Setting PRVC/AC Blood Gas Inspired Oxygen 50 % Imaging Last 24 hours Impressions Chest X-Ray 08/04/17 0600 Signed Impressions: Service Date/Time: July 05:33 - CONCLUSION: Stable chest x-ray with bibasilar opacities most likely representing pleural effusions with associated atelectasis and/or airspace consolidation. Ra Pulliam MD Head CT 08/04/17 0000 Signed Impressions: Service Date/Time: July 04:37 - CONCLUSION: 1. Stable intracranial findings including bilateral subdural hematomas, intraventricular blood products, and bilateral temporal lobe hemorrhagic contusions. There is no midline shift or herniation. Ventricles are stable in size. 2. There is new fluid in the mastoid air cells and small air fluid levels bilaterally in the maxillary antra. These changes may be related to intubation. Ra Pulliam MD Exam WAFER FABRICATOR No change in neurologic status Riley Coma Scale remains for of all sedation Hemodynamic/Cardiac Hemodynamically intact hypertensive as above noted on multiple medications Pulmonary/Respiratory Bilateral breath sounds good PO2 FiO2 gradient Abdomen/GI Nutrition Abdomen soft enteral feeds tolerated Renal/I&O Renal function gradually deteriorating as above noted patient had previous renal insult several years ago and required dialysis at the time Family is debating whether to place patient dialysis faced with the fact the patient will have 100% and morbidity and will be bedridden for the rest of his life and most likely with severely decreased neurologic motoric and cognitive functions Assessment and Plan Plan Subarachnoid and subdural hemorrhages following fall with a platelets dysfunction secondary to Plavix -Continue supportive care and monitoring per neurosurgery -Continue full ventilator support -Transfuse 2 units of packed cells. -Start tube feeds today for nutritional support -Patient has an elevated BUN/creatinine -nephrology on board -restart tube feeds-trophic first-may need prokinetic agent if does not tolerate -overall poor prognosis-palliative care consult Attestation Critical care time 32 minute Andrea Banks MD Aug 04, 2017 11:22
--- NOTE | 2017-08-04 12:30 | PD.CARD.PN ---
Subjective Subjective Remarks No events overnight No arrhythmias noted Objective Medications Current Medications Medications (Trade) Dose Ordered Sig/Juliet Route Start Time Stop Time Status Last Admin (NS Flush) 2 ml UNSCH PRN IV FLUSH 07/30/17 12:45 08/03/17 09:43 (Zofran Inj) 4 mg Q6H PRN IV PUSH 07/30/17 12:45 Miscellaneous Information 1 Q361D XX 07/30/17 12:45 (Chlorhexidine 2% Cloth) 3 pack Taper DAILY@04 TOP 07/31/17 04:00 07/27/18 03:59 08/04/17 04:05 (Chlorhexidine 2% Cloth) 3 pack UNSCH PRN TOP 07/30/17 12:45 (Peridex 0.12% Liq) 15 ml BID@08,20 MT 07/30/17 20:00 08/04/17 08:15 Fentanyl Citrate 250 ml @ 5 mls/hr TITRATE PRN IV 07/30/17 13:30 08/03/17 16:56 Propofol 100 ml @ 2.64 mls/hr TITRATE PRN IV 07/30/17 13:30 08/03/17 19:13 (Pepcid) 10 mg BID PO 07/30/17 21:00 08/04/17 08:18 Nicardipine HCl 25 mg/Sodium Chloride 250 ml @ 50 mls/hr TITRATE PRN IV 07/30/17 16:15 08/04/17 09:56 (Pravachol) 40 mg DAILY PO 07/31/17 09:00 08/04/17 08:18 (D50w (Vial) Inj) 50 ml UNSCH PRN IV PUSH 07/31/17 07:45 (Glucagon Inj) 1 mg UNSCH PRN OTHER 07/31/17 07:45 (Hytrin) 10 mg HS PO 07/31/17 21:00 08/03/17 20:32 (Apresoline) 100 mg Q12HR PO 07/31/17 09:00 08/04/17 08:18 Levetriacetam 500 mg/Sodium Chloride 105 ml @ 420 mls/hr Q12HR IV 08/01/17 10:00 08/04/17 08:17 Miscellaneous Information 1 Q7D T-DERMAL 08/08/17 16:00 (Jackelyn-Colace) 1 tab BID PO 08/01/17 21:00 08/04/17 08:18 (Lactulose Liq) 30 ml DAILY PO 08/01/17 16:15 08/04/17 08:17 (Dulcolax Supp) 10 mg DAILY PRN RECTAL 08/01/17 16:15 (Catapres-Tts 0.2 Mg Patch.7d) 1 patch Q7D T-DERMAL 08/01/17 20:00 08/01/17 20:31 Miscellaneous Information 1 Q7D T-DERMAL 08/01/17 20:00 (NovoLOG SUPPLEMENTAL SCALE) 1 Q6HR SQ 08/01/17 18:00 (Diuril Inj) 500 mg Q12H IV 08/03/17 01:00 08/04/17 00:19 (Lasix Inj) 80 mg BID@09,18 IV PUSH 08/02/17 18:00 08/04/17 08:17 (Duoneb Neb) 1 ampule Q6HR NEB NEB 08/02/17 22:00 08/04/17 08:19 (Lopressor Inj) 5 mg Q6H IV PUSH 08/04/17 10:00 08/04/17 10:13 Vital Signs / I&O Vital Signs Date Time Temp Pulse Resp B/P (MAP) Pulse Ox O2 Delivery O2 Flow Rate FiO2 08/04/17 12:00 97.9 69 17 159/69 (99) 97 08/04/17 12:00 50 08/04/17 12:00 69 08/04/17 11:46 97 50 08/04/17 10:00 70 08/04/17 09:56 68 167/71 08/04/17 09:47 50 08/04/17 08:21 97 50 08/04/17 08:17 63 159/70 08/04/17 08:00 98.6 62 15 159/70 (99) 97 08/04/17 08:00 100 08/04/17 08:00 64 08/04/17 06:00 69 08/04/17 05:57 67 159/68 08/04/17 04:38 97 100 08/04/17 04:05 68 158/69 08/04/17 04:00 64 08/04/17 04:00 50 08/04/17 04:00 98.2 64 13 158/69 (98) 97 08/04/17 03:02 98 45 08/04/17 02:15 62 149/67 08/04/17 02:00 60 08/04/17 00:20 61 144/65 08/04/17 00:00 99.0 60 12 144/67 (92) 98 08/04/17 00:00 50 08/04/17 00:00 60 08/03/17 23:45 98 08/03/17 23:45 98 50 08/03/17 22:18 59 152/67 08/03/17 22:00 60 08/03/17 21:00 58 167/74 08/03/17 20:29 56 144/67 08/03/17 20:00 50 08/03/17 20:00 98.4 54 12 153/65 (94) 99 08/03/17 20:00 54 08/03/17 19:49 99 50 08/03/17 18:00 55 08/03/17 17:42 54 131/60 08/03/17 16:00 50 08/03/17 16:00 55 08/03/17 16:00 97.7 55 12 145/64 (91) 98 08/03/17 15:44 55 162/73 08/03/17 15:17 99 50 08/03/17 14:20 97.7 56 12 161/72 99 08/03/17 14:00 63 08/03/17 12:35 97.7 59 12 149/68 99 I/O 08/03/17 08/03/17 08/03/17 08/04/17 08/04/17 08/04/17 07:00 15:00 23:00 07:00 15:00 23:00 Intake Total 0 ml 1881 ml 1370 ml 500 ml Output Total 650 ml 1225 ml 1125 ml Balance -650 ml 1881 ml 145 ml -625 ml IV Total 181 ml 1370 ml 500 ml Tube Feeding 0 ml Packed Cells 800 ml Blood Product IV Normal Saline Flush 900 ml Output Urine Total 400 ml 775 ml 725 ml Gastric Drainage Total 250 ml 450 ml 400 ml # Bowel Movements 0 0 0 Physical Exam GENERAL: Intubated and sedated SKIN: Warm and dry. HEAD: Atraumatic. Normocephalic. EYES: Pupils equal and round. No scleral icterus. No injection or drainage. ENT: No nasal bleeding or discharge. Mucous membranes pink and moist. NECK: Trachea midline. No JVD. CARDIOVASCULAR: Regular rate and rhythm. RESPIRATORY: No accessory muscle use. Clear to auscultation. Breath sounds equal bilaterally. GASTROINTESTINAL: Abdomen soft, non-tender, nondistended. Hepatic and splenic margins not palpable. MUSCULOSKELETAL: Extremities without clubbing, cyanosis, or edema. No obvious deformities. NEUROLOGICAL: Unable to determine. ICP monitor in place, pressures 4-13 Laboratory Laboratory Tests Test 08/03/17 20:03 08/04/17 02:46 08/04/17 06:30 Prothrombin Time 10.2 SEC Prothromb Time International Ratio 1.0 RATIO Activated Partial Thromboplast Time 28.0 SEC White Blood Count 9.7 TH/MM3 Red Blood Count 3.04 MIL/MM3 Hemoglobin 8.9 GM/DL Hematocrit 25.9 % Mean Corpuscular Volume 85.2 FL Mean Corpuscular Hemoglobin 29.2 PG Mean Corpuscular Hemoglobin Concent 34.3 % Red Cell Distribution Width 24.9 % Platelet Count 112 TH/MM3 Mean Platelet Volume 10.3 FL Neutrophils (%) (Auto) 83.6 % Lymphocytes (%) (Auto) 4.4 % Monocytes (%) (Auto) 10.8 % Eosinophils (%) (Auto) 1.0 % Basophils (%) (Auto) 0.2 % Neutrophils # (Auto) 8.1 TH/MM3 Lymphocytes # (Auto) 0.4 TH/MM3 Monocytes # (Auto) 1.0 TH/MM3 Eosinophils # (Auto) 0.1 TH/MM3 Basophils # (Auto) 0.0 TH/MM3 CBC Comment DIFF FINAL Differential Comment Blood Urea Nitrogen 63 MG/DL Creatinine 3.93 MG/DL Random Glucose 128 MG/DL Albumin 2.2 GM/DL Calcium Level 7.9 MG/DL Phosphorus Level 7.4 MG/DL Sodium Level 148 MEQ/L Potassium Level 4.1 MEQ/L Chloride Level 117 MEQ/L Carbon Dioxide Level 16.0 MEQ/L Total Protein 5.7 GM/DL Alkaline Phosphatase 128 U/L Aspartate Amino Transf (AST/SGOT) 16 U/L Alanine Aminotransferase (ALT/SGPT) 8 U/L Total Bilirubin 1.3 MG/DL Anion Gap 15 MEQ/L Estimat Glomerular Filtration Rate 15 ML/MIN Blood Gas Puncture Site RT RADIAL Blood Gas Patient Temperature 98.6 Blood Gas HCO3 14 mmol/L Blood Gas Base Excess -11.6 mmol/L Blood Gas Oxygen Saturation 95 % Arterial Blood pH 7.31 Arterial Blood Partial Pressure CO2 28 mmHg Arterial Blood Partial Pressure O2 97 mmHg Arterial Blood Oxygen Content 12.4 Vol % Arterial Blood Carboxyhemoglobin 1.2 % Arterial Blood Methemoglobin 1.1 % Blood Gas Hemoglobin 9.2 G/DL Oxygen Delivery Device VENTILATOR Blood Gas Ventilator Setting PRVC/AC Blood Gas Inspired Oxygen 50 % Imaging Last 24 hours Impressions Chest X-Ray 08/04/17 0600 Signed Impressions: Service Date/Time: July 05:33 - CONCLUSION: Stable chest x-ray with bibasilar opacities most likely representing pleural effusions with associated atelectasis and/or airspace consolidation. Ra Pulliam MD Head CT 08/04/17 0000 Signed Impressions: Service Date/Time: July 04:37 - CONCLUSION: 1. Stable intracranial findings including bilateral subdural hematomas, intraventricular blood products, and bilateral temporal lobe hemorrhagic contusions. There is no midline shift or herniation. Ventricles are stable in size. 2. There is new fluid in the mastoid air cells and small air fluid levels bilaterally in the maxillary antra. These changes may be related to intubation. Ra Pulliam MD Assessment and Plan Problem List: (1) Major neurocognitive disorder as late effect of traumatic brain injury without behavioral disturbance ICD Codes: S06.9X9S - Unspecified intracranial injury with loss of consciousness of unspecified duration, sequela; F02.80 - Dementia in other diseases classified elsewhere without behavioral disturbance (2) Intracranial bleed ICD Codes: I62.9 - Nontraumatic intracranial hemorrhage, unspecified Status: Acute (3) Edema due to congestive heart failure ICD Codes: I50.9 - Heart failure, unspecified (4) Hypertensive emergency ICD Codes: I16.1 - Hypertensive emergency Status: Acute (5) CKD (chronic kidney disease) stage 3, GFR 30-59 ml/min ICD Codes: N18.3 - Chronic kidney disease, stage 3 (moderate) (6) Acute kidney insufficiency ICD Codes: N28.9 - Disorder of kidney and ureter, unspecified Status: Acute Assessment and Plan 1) Mechanical fall leading in subdural/subarachnoid hemorrhage 2) Benign PVCs Normal function on echo Electrolytes normal range 3) ASA/Plavix stopped for ICH 4) Blood pressure elevated Currently maxed on Cardene drip Will add Hydralazine Aman Angulo DO Aug 04, 2017 12:30
[2017-08-04] MEDS: PROPOFOL 1000 MG/100 ML IV PRN ×3 (12:43→20:43)
--- NOTE | 2017-08-04 13:30 | HHI.NSPN ---
(Kathe Murphy) Note Status Status: Progress Note (Kathe Murphy) Interval History Interval History This is an 82-year-old gentleman who fell backwards off of a ladder approximately 10 feet. He underwent a brief round of CPR but was found to be spontaneously breathing so it was stopped patient was brought in the trauma bay hypertensive and confused he was intubated in the trauma bay. No seizure activity reported. No tongue biting. No incontinence of stool or urine. No tonic-clonic movements. He had unequal pupils and a coffee-ground emesis prior to intubation. He was upgraded to a level I trauma alert. He was resuscitated according to the ATLS protocol and full trauma workup was carried down. He was found to have right subarachnoid hemorrhage as well as subdural hematoma. He was given 2 units of platelets that for his platelet insufficiency due to Plavix. He was moving his extremities. Neurosurgical consultation was requested 07/31/17. Remains intubated and sedated. ICP monitor in place. A follow-up CT of the brain was obtained 08/01/17: intubated and sedated, ICPs below 10. 08/02/17: intubated, sedated. ICPs stable. f/u CT Brain yesterday showed slight increase in size of left subdural hematoma per Dr. Horne' review. decreasing renal function - nephrology consulted, also now with PVCs. 08/03/17: remains intubated, sedated on fentanyl and propofol drips. ICPs below 20. 08/04/17: ICPs stable overnight, f/u CT Brain this morning completed. intubated and sedated. (Kathe Murphy) Labs, Micro, & Vital Signs Results Date Time Temp Pulse Resp B/P (MAP) Pulse Ox O2 Delivery O2 Flow Rate FiO2 08/04/17 13:22 66 156/67 08/04/17 12:10 70 159/69 08/04/17 12:00 97.9 69 17 159/69 (99) 97 08/04/17 12:00 50 08/04/17 12:00 69 08/04/17 11:46 97 50 08/04/17 10:00 70 08/04/17 09:56 68 167/71 08/04/17 09:47 50 08/04/17 08:21 97 50 08/04/17 08:17 63 159/70 08/04/17 08:00 98.6 62 15 159/70 (99) 97 08/04/17 08:00 100 08/04/17 08:00 64 08/04/17 06:00 69 08/04/17 05:57 67 159/68 08/04/17 04:38 97 100 08/04/17 04:05 68 158/69 08/04/17 04:00 64 08/04/17 04:00 50 08/04/17 04:00 98.2 64 13 158/69 (98) 97 08/04/17 03:02 98 45 08/04/17 02:15 62 149/67 08/04/17 02:00 60 08/04/17 00:20 61 144/65 08/04/17 00:00 99.0 60 12 144/67 (92) 98 08/04/17 00:00 50 08/04/17 00:00 60 08/03/17 23:45 98 08/03/17 23:45 98 50 08/03/17 22:18 59 152/67 08/03/17 22:00 60 08/03/17 21:00 58 167/74 08/03/17 20:29 56 144/67 08/03/17 20:00 50 08/03/17 20:00 98.4 54 12 153/65 (94) 99 08/03/17 20:00 54 08/03/17 19:49 99 50 08/03/17 18:00 55 08/03/17 17:42 54 131/60 08/03/17 16:00 50 08/03/17 16:00 55 08/03/17 16:00 97.7 55 12 145/64 (91) 98 08/03/17 15:44 55 162/73 08/03/17 15:17 99 50 08/03/17 14:20 97.7 56 12 161/72 99 08/03/17 14:00 63 Constitutional Vital Signs Date Time Temp Pulse Resp B/P (MAP) Pulse Ox O2 Delivery O2 Flow Rate FiO2 08/04/17 13:22 66 156/67 08/04/17 12:10 70 159/69 08/04/17 12:00 97.9 69 17 159/69 (99) 97 08/04/17 12:00 50 08/04/17 12:00 69 08/04/17 11:46 97 50 08/04/17 10:00 70 08/04/17 09:56 68 167/71 08/04/17 09:47 50 08/04/17 08:21 97 50 08/04/17 08:17 63 159/70 08/04/17 08:00 98.6 62 15 159/70 (99) 97 08/04/17 08:00 100 08/04/17 08:00 64 08/04/17 06:00 69 08/04/17 05:57 67 159/68 08/04/17 04:38 97 100 08/04/17 04:05 68 158/69 08/04/17 04:00 64 08/04/17 04:00 50 08/04/17 04:00 98.2 64 13 158/69 (98) 97 08/04/17 03:02 98 45 08/04/17 02:15 62 149/67 08/04/17 02:00 60 08/04/17 00:20 61 144/65 08/04/17 00:00 99.0 60 12 144/67 (92) 98 08/04/17 00:00 50 08/04/17 00:00 60 08/03/17 23:45 98 08/03/17 23:45 98 50 08/03/17 22:18 59 152/67 08/03/17 22:00 60 08/03/17 21:00 58 167/74 08/03/17 20:29 56 144/67 08/03/17 20:00 50 08/03/17 20:00 98.4 54 12 153/65 (94) 99 08/03/17 20:00 54 08/03/17 19:49 99 50 08/03/17 18:00 55 08/03/17 17:42 54 131/60 08/03/17 16:00 50 08/03/17 16:00 55 08/03/17 16:00 97.7 55 12 145/64 (91) 98 08/03/17 15:44 55 162/73 08/03/17 15:17 99 50 08/03/17 14:20 97.7 56 12 161/72 99 08/03/17 14:00 63 (Kathe Murphy) Physical Exam Mr. Alonzo is intubated and sedated, he has minimal eyes opening noted to pain, he does not follow commands. Head: Right ICP monitor in place, ICPs = 5-6 Cranial Nerves: Pupils right 2mm, left 3 mm round. Eyes appear conjugated. Cervical Spine: soft, supple Motor: not following commands for testing, minimal withdraw in feet bilaterally , no response to pain in upper extremities Sensory: minimal response to painful stimuli in feet Cerebellar: cannot be adequately assessed due to the patient's neurological condition. Heart: regular rate, rhythm Resp: clear, mechanically ventilated Skin: warm, dry (Kathe Murphy) Mr. Alonzo is intubated and sedated, he has minimal eyes opening noted to pain, he does not follow commands. Head: Right ICP monitor in place, ICPs = 5-6 Cranial Nerves: Pupils right 2mm, left 3 mm round. Eyes appear conjugated. Cervical Spine: soft, supple Motor: not following commands for testing, minimal withdraw in feet bilaterally , no response to pain in upper extremities Sensory: minimal response to painful stimuli in feet Cerebellar: cannot be adequately assessed due to the patient's neurological condition. Heart: regular rate, rhythm Resp: clear, mechanically ventilated Skin: warm, dry (Les Horne MD) Medications Current Medications Current Medications Medications (Trade) Dose Ordered Sig/Juliet Route PRN Reason Start Time Stop Time Status Last Admin Dose Admin Sodium Chloride (NS Flush) 2 ml UNSCH PRN IV FLUSH FLUSH AFTER USING IV ACCESS 07/30/17 12:45 08/03/17 09:43 Ondansetron HCl (Zofran Inj) 4 mg Q6H PRN IV PUSH NAUSEA OR VOMITING 07/30/17 12:45 Miscellaneous Information 1 Q361D XX 07/30/17 12:45 Chlorhexidine Gluconate (Chlorhexidine 2% Cloth) 3 pack Taper DAILY@04 TOP 07/31/17 04:00 07/27/18 03:59 08/04/17 04:05 Chlorhexidine Gluconate (Chlorhexidine 2% Cloth) 3 pack UNSCH PRN TOP HYGIENIC CARE 07/30/17 12:45 Chlorhexidine Gluconate (Peridex 0.12% Liq) 15 ml BID@08,20 MT 07/30/17 20:00 08/04/17 08:15 Fentanyl Citrate 250 ml @ 5 mls/hr TITRATE PRN IV Sedation 07/30/17 13:30 08/03/17 16:56 Propofol 100 ml @ 2.64 mls/hr TITRATE PRN IV SEDATION 07/30/17 13:30 08/04/17 12:43 Famotidine (Pepcid) 10 mg BID PO 07/30/17 21:00 08/04/17 08:18 Nicardipine HCl 25 mg/Sodium Chloride 250 ml @ 50 mls/hr TITRATE PRN IV Blood pressure management 07/30/17 16:15 08/04/17 12:10 Pravastatin Sodium (Pravachol) 40 mg DAILY PO 07/31/17 09:00 08/04/17 08:18 Dextrose (D50w (Vial) Inj) 50 ml UNSCH PRN IV PUSH HYPOGLYCEMIA-SEE COMMENTS 07/31/17 07:45 Glucagon (Glucagon Inj) 1 mg UNSCH PRN OTHER HYPOGLYCEMIA-SEE COMMENTS 07/31/17 07:45 Terazosin HCl (Hytrin) 10 mg HS PO 07/31/17 21:00 08/03/17 20:32 Hydralazine HCl (Apresoline) 100 mg Q12HR PO 07/31/17 09:00 08/04/17 08:18 Levetriacetam 500 mg/Sodium Chloride 105 ml @ 420 mls/hr Q12HR IV 08/01/17 10:00 08/04/17 08:17 Miscellaneous Information 1 Q7D T-DERMAL 08/08/17 16:00 Senna/Docusate Sodium (Jackelyn-Colace) 1 tab BID PO 08/01/17 21:00 08/04/17 08:18 Lactulose (Lactulose Liq) 30 ml DAILY PO 08/01/17 16:15 08/04/17 08:17 Bisacodyl (Dulcolax Supp) 10 mg DAILY PRN RECTAL Constipation 08/01/17 16:15 Clonidine (Catapres-Tts 0.2 Mg Patch.7d) 1 patch Q7D T-DERMAL 08/01/17 20:00 08/01/17 20:31 Miscellaneous Information 1 Q7D T-DERMAL 08/01/17 20:00 Insulin Aspart (NovoLOG SUPPLEMENTAL SCALE) 1 Q6HR SQ 08/01/17 18:00 Chlorothiazide Sodium (Diuril Inj) 500 mg Q12H IV 08/03/17 01:00 08/04/17 12:44 Furosemide (Lasix Inj) 80 mg BID@,18 IV PUSH 08/02/17 18:00 08/04/17 08:17 Albuterol/ Ipratropium (Duoneb Neb) 1 ampule Q6HR NEB NEB 08/02/17 22:00 08/04/17 08:19 Metoprolol Tartrate (Lopressor Inj) 5 mg Q6H IV PUSH 08/04/17 10:00 08/04/17 10:13 Hydralazine HCl (Apresoline Inj) 10 mg Q4HR PRN IV PUSH SBP>160, DBP>90 08/04/17 12:30 (Kathe Murphy) Medical Decision Making MDM Remarks 82-year-old gentleman who fell backwards off of a ladder approximately 10 feet TBI, s/p placement of intracranial pressure monitor with stable ICPs CT Brain 07/31/17: increase in the size of the left subdural hematoma. Stable right subdural hematoma. Increase in size of the right temporal tip hematoma. Stable size left temporal hematoma 08/02/27: Stable intraparenchymal, subdural, and intraventricular hemorrhage. No midline shift or new sites of hemorrhage. 08/04/17 reports Stable intracranial findings including bilateral subdural hematomas, intraventricular blood products, and bilateral temporal lobe hemorrhagic contusions There is no midline shift or herniation. Ventricles are stable in size. (Kathe Murphy) Plan Plan Remarks ICP monitor dc'ed by Dr. Horne, repeat CT Brain to be reviewed by Dr. Horne cont nonsurgical mgt of ICH cont serial neuro checks seizure prophylaxis (Kathe Murphy) Attending Statement Caprini Risk Assessment Model Point Value = 1 Point Value = 2 Point Value = 3 Point Value = 5 Age 41-60 Minor surgery BMI > 25 kg/m2 Swollen legs Varicose veins or History of unexplained or recurrent spontaneous Oral contraceptives or hormone replacement Sepsis (< 1 month) Serious lung disease, including pneumonia (< 1 month) Abnormal pulmonary function Acute myocardial infarction Congestive heart failure (< 1 month) History of inflammatory bowel disease Medical patient at bed rest Age 61-74 Arthroscopic surgery Major open surgery (> 45 min) Laparoscopic surgery (> 45 min) Malignancy Confined to bed (> 72 hours) Immobilizing plaster cast Central venous access Age >= 75 History of VTE Family history of VTE Factor V Leiden Prothrombin [id number] Lupus anticoagulant Anticardiolipin antibodies Elevated serum homocysteine Heparin-induced thrombocytopenia Other congenital or acquired thrombophilia Stroke (< 1 month) Elective arthroplasty Hip, pelvis, or leg fracture Acute spinal cord injury (< 1 month) Prophylaxis Regimen Total Risk Factor Score Risk Level Prophylaxis Regimen 0-1 Low Early ambulation 2 Moderate Order ONE of the following: *Sequential Compression Device (SCD) *Heparin 5000 units SQ BID 3-4 Higher Order ONE of the following medications: *Heparin 5000 units SQ TID *Enoxaparin/Lovenox 40 mg SQ daily (WT < 150 kg, CrCl > 30 mL/min) *Enoxaparin/Lovenox 30 mg SQ daily (WT < 150 kg, CrCl > 10-29 mL/min) *Enoxaparin/Lovenox 30 mg SQ BID (WT < 150 kg, CrCl > 30 mL/min) AND/OR *Sequential Compression Device (SCD) 5 or more Highest Order ONE of the following medications: *Heparin 5000 units SQ TID (Preferred with Epidurals) *Enoxaparin/Lovenox 40 mg SQ daily (WT < 150 kg, CrCl > 30 mL/min) *Enoxaparin/Lovenox 30 mg SQ daily (WT < 150 kg, CrCl > 10-29 mL/min) *Enoxaparin/Lovenox 30 mg SQ BID (WT < 150 kg, CrCl > 30 mL/min) AND *Sequential Compression Device (SCD) His condition remains critical. His venous left sided subdural hematoma has increased in size He is at risk fir clinical deterioration. We will obtain a follow up CT tomorrow 08/05. If there is further increase in the size of the hemorrhage he may need to undergo a craniotomy with evacuation of the hematoma. I discussed with his doctor the stay by status of the procedure indications alternatives risks and potential complications He has severe comorbidities including a deteriorating renal function for which I have placed a public health staff nurse consult. He has arrhythmias and PVCs unrelated to his electrolytes. This will be further evaluated by a finished hardware erector Pulmonary. Continue full mechanical ventilation in Assist control mode of ventilation aggressive pulmonary toilette, nasotracheal suction, and breathing treatments with nebulizers. Daily PT and OT Renal. monitor closely urine output, BUN and creatinine Endocrine.Monitor serial Acu checks and SSI as needed in detail ID monitor for signs of infection Protonix for stress ulcer prophylaxis Gilbert hose and SCD's for DVT prophylaxis Further recommendations will be provided depending on the patient's clinical evaluation and follow up studies The exam, history, and the medical decision-making described in the above note were completed with the assistance of the mid-level provider. I reviewed and agree with the findings presented. I attest that I had a [id number] encounter with the patient on the same day, and personally performed and documented my assessment and findings in the medical record. (Les Horne MD) Kathe Murphy Aug 04, 2017 13:30 Les Horne MD Aug 04, 2017 13:58
[2017-08-04] MEDS: hydrALAZINE HCL 20 MG/ML VIAL IV PUSH PRN ×2 (15:02→19:58)
--- NOTE | 2017-08-04 19:26 | HHI.NPPN ---
Subjective History of Present Illness This patient is an 82-year-old male who unfortunately cannot provide any history secondary to head injury, intubated status on a ventilator. History obtained from records and from his daughter. Limited history available. Family patient has a history suggesting peripheral vascular disease, congestive heart failure, chronic lower extremity edema with dyspnea, chronic renal sufficiency?. According to the patient's daughter he was hospitalized back in 2013 at [facility]. Developed a ruptured appendix post colonoscopy subsequently developing acute renal failure and requiring laparotomy. According to the patient's daughter he was on dialysis temporarily. Not following up with a per diem rn routinely in recent times. They cannot recall name of his primary care physician currently also. Patient apparently fell short distance from a ladder and hit his head and subsequently has been diagnosed as having a subdural as well as subarachnoid hemorrhage. Creatinine was elevated at the time of presentation at 1.5 and chest x-ray showed evidence of congestive heart failure and the patient had a hemoglobin that was only 7.4. Echocardiogram performed July 31, 2017 revealed an ejection fraction of 50-55%. Patient's albumin on presentation his low with a low corrected calcium 7.8. Interval History Patient remains intubated not responding to verbal questions. Review of Systems General General Remarks Unable to obtain Objective Data Data 08/04/17 08/05/17 19:00 07:00 Intake Total 20 ml Output Total 1100 ml Balance -1080 ml Intake Oral 0 ml Tube Irrigant 20 ml Output Urine Total 750 ml Gastric Drainage Total 350 ml # Bowel Movements 0 Vital Signs Date Time Temp Pulse Resp B/P (MAP) Pulse Ox O2 Delivery O2 Flow Rate FiO2 08/04/17 18:52 82 162/70 08/04/17 18:00 85 08/04/17 17:12 71 163/70 08/04/17 16:16 99 50 08/04/17 16:00 67 08/04/17 16:00 97.2 76 20 174/75 (108) 96 08/04/17 16:00 50 08/04/17 15:04 71 156/70 08/04/17 14:00 73 08/04/17 13:22 66 156/67 08/04/17 12:10 70 159/69 08/04/17 12:00 97.9 69 17 159/69 (99) 97 08/04/17 12:00 50 08/04/17 12:00 69 08/04/17 11:46 97 50 08/04/17 10:00 70 08/04/17 09:56 68 167/71 08/04/17 09:47 50 08/04/17 08:21 97 50 08/04/17 08:17 63 159/70 08/04/17 08:00 98.6 62 15 159/70 (99) 97 08/04/17 08:00 100 08/04/17 08:00 64 08/04/17 06:00 69 08/04/17 05:57 67 159/68 08/04/17 04:38 97 100 08/04/17 04:05 68 158/69 08/04/17 04:00 64 08/04/17 04:00 50 08/04/17 04:00 98.2 64 13 158/69 (98) 97 08/04/17 03:02 98 45 08/04/17 02:15 62 149/67 08/04/17 02:00 60 08/04/17 00:20 61 144/65 08/04/17 00:00 99.0 60 12 144/67 (92) 98 08/04/17 00:00 50 08/04/17 00:00 60 08/03/17 23:45 98 08/03/17 23:45 98 50 08/03/17 22:18 59 152/67 08/03/17 22:00 60 08/03/17 21:00 58 167/74 08/03/17 20:29 56 144/67 08/03/17 20:00 50 08/03/17 20:00 98.4 54 12 153/65 (94) 99 08/03/17 20:00 54 08/03/17 19:49 99 50 -: 08/04/17 0246 08/04/17 0246 Physical Exam General Appearance: Comfortable, Obese Appearance Remarks ET tube in place. Eyes Eye Exam: Sclera White Pulmonary Resp Exam: Breath Sounds Equal, No Distress, Decreased Bases Cardiology CV Exam: Regular, Normal Sinus Rhythm Gastrointestinal/Abdomen GI Exam: Non-Tender, Distended Extremeties Extremities Exam: Moderate Edema (improved slightly since yesterday.), Pitting Edema, Dependent Edema (diffuse edema involving all extremities, hips and dependent torso.) Neurologic Neuro Exam: Sedated Assessment/Plan Discussed Condition With: Relative Problem List: (1) Acute kidney insufficiency ICD Codes: N28.9 - Disorder of kidney and ureter, unspecified Status: Acute Plan: Patient's urine output appears to be improving somewhat and his creatinine level has improved slightly since yesterday. Remains be determined whether not yesterday was a plateau as far as his creatinine level was concerned. I will increase furosemide to every 8 hourly dosing with monitoring of renal indices and volume status. In view of above no indication to consider initiation of dialytic therapy today. Medications should be adjusted for the patient's estimated GFR if clinically indicated. Avoid agents with significant potential for nephrotoxicity possible including NSAIDs for analgesia, iodine contrast agents. Gadolinium is contraindicated if the GFR is below 30. (2) CKD (chronic kidney disease) stage 3, GFR 30-59 ml/min ICD Codes: N18.3 - Chronic kidney disease, stage 3 (moderate) Plan: Baseline renal function unknown. Patient currently has a history of chronic lower extremity edema and dyspnea. Unfortunately previous records not available but I suspect that the patient has a component of chronic CHF. 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 Also previous history of acute renal failure may have resulted in significant deterioration in his baseline renal function but those records are not available to me currently. (3) Congestive heart failure ICD Codes: I50.9 - Heart failure, unspecified Plan: Continue furosemide and Diuril as ordered. Monitor response. Most likely has some degree of diastolic dysfunction as EF was reported as being 50-55%. (4) Edema due to congestive heart failure ICD Codes: I50.9 - Heart failure, unspecified Plan: In addition patient does have evidence of hypoalbuminemia. Need to determine as the patient has significant proteinuria. UPCR pending (5) Hypocalcemia ICD Codes: E83.51 - Hypocalcemia Plan: Start Vitamin D (6) Anemia ICD Codes: D64.9 - Anemia, unspecified Problem Qualifiers (1) Congestive heart failure: Michell Chavez MD Aug 04, 2017 19:26
[2017-08-04] MEDS: TERAZOSIN HCL 5 MG CAP PO SCH (20:46)
[2017-08-04] MEDS: FUROSEMIDE 100 MG/10 ML VIAL IV PUSH SCH (21:37)
[2017-08-05] VITALS (19 sets, daily range): BP systolic 136–185; BP diastolic 61–76; PULSE 58–74; RESP 12–17; TEMP 97.2–100; O2SAT 95–100
[2017-08-05] MEDS: niCARdipine INJ 25 MG in SODIUM CHLOR 0.9% 250 ML INJ 240 ML IV PRN ×11 (00:01→22:23)
[2017-08-05] MEDS: PROPOFOL 1000 MG/100 ML IV PRN ×3 (03:14→06:56)
[2017-08-05] MEDS: fentaNYL 2,500 MCG/NS 250 ML IV PRN ×2 (03:15→22:20)
[2017-08-05] MEDS: METOPROLOL TARTRATE 5 MG/5 ML VIAL IV PUSH SCH ×3 (03:26→21:01)
[2017-08-05] MEDS: CHLORHEXIDINE GLUCONATE 2 % 1 PACK (2 CLOTHS) TOP SCH (03:26)
--- NOTE | 2017-08-05 04:22 | RADRPT ---
EXAM DATE/TIME: 08/05/2017 02:48 [facility] COMPARISON: CHEST SINGLE AP, August 04, 2017, 5:33. INDICATIONS : Follow up trauma. MEDICAL HISTORY : Hypertension. Congestive heart failure. Hypercholesterolemia. Diabetes. SURGICAL HISTORY : None. ENCOUNTER: Subsequent ACUITY: 1 week PAIN SCORE: Non-responsive. LOCATION: Bilateral cranial FINDINGS: Bibasilar parenchymal consolidation and [id number] effusions persist, not significantly change d. No perceptible pneumothorax. Mild cardiomegaly again seen. Endotracheal tube tip is approximately 3 cm above the lorenzo. Nasogastric tube courses into the stoma ch. CONCLUSION: No significant change. Ra Ballard MD on August 05, 2017 at 4:20 Board Certified Radiologist. This report was verified electronically.
[2017-08-05] MEDS: RESP: ALBUTEROL 2.5 MG/IPRATROPIUM 0.5 MG NEB (SCH) NEB ×3 (04:27→20:44)
[2017-08-05 05:17] LABS: BASOPHIL % 0.4 % (0.0-2.0); EOSINOPHIL # 0.1 TH/MM3 (0-0.4); HEMATOCRIT 27.3 % (39.0-51.0); HEMOGLOBIN 9.2 GM/DL (13.0-17.0); LYMPH % 4.8 % (9.0-44.0); LYMPHOCYTE # 0.6 TH/MM3 (1.0-4.8); MEAN CELL VOLUME 86.5 FL (80.0-100.0); MEAN CORPUSCULAR HEMOGLOBIN 29.2 PG (27.0-34.0); MEAN CORPUSCULAR HGB CONC 33.7 % (32.0-36.0); MEAN PLATELET VOLUME 10.5 FL (7.0-11.0); MONO % 12.2 % (0.0-8.0); MONOCYTE # 1.5 TH/MM3 (0-0.9); NEUT % 81.6 % (16.0-70.0); PLATELET COUNT 131 TH/MM3 (150-450); RED BLOOD COUNT 3.15 MIL/MM3 (4.50-5.90); RED CELL DISTRIBUTION WIDTH 25.4 % (11.6-17.2); WHITE BLOOD COUNT 12.2 TH/MM3 (4.0-11.0)
[2017-08-05] MEDS ORDERED: SODIUM BICARBONATE 8.4% INJ 50 MEQ/50 ML SYR ONE (05:25)
[2017-08-05] MEDS: INSULIN ASPART SUPPLEMENTAL SCALE SQ SCH ×2 (05:38→12:00)
[2017-08-05] MEDS: FUROSEMIDE 100 MG/10 ML VIAL IV PUSH SCH ×3 (05:44→21:01)
[2017-08-05 05:52] LABS: ALBUMIN 2.3 GM/DL (3.4-5.0); ALKALINE PHOSPHATASE 121 U/L (45-117); ALT (GPT) 9 U/L (12-78); AST (GOT) 35 U/L (15-37); BICARBONATE 13.7 MEQ/L (21.0-32.0); BLOOD UREA NITROGEN 78 MG/DL (7-18); CALCIUM 7.7 MG/DL (8.5-10.1); CHLORIDE 117 MEQ/L (98-107); CREATININE 4.28 MG/DL (0.60-1.30); GLOMERULAR FILTRATION RATE 13 ML/MIN (>89); GLUCOSE,RANDOM 121 MG/DL (74-106); SODIUM (NA) 148 MEQ/L (136-145); TOTAL BILIRUBIN ADULT 0.8 MG/DL (0.2-1.0); TOTAL PROTEIN 5.9 GM/DL (6.4-8.2)
[2017-08-05 07:09] LABS: BANDS 3 % (0-6); LYMPHOCYTES 3 % (9-44); MONOCYTES 6 % (0-8); NEUTROPHIL # MANUAL DIFF 11.1 TH/MM3 (1.8-7.7); POLYS (SEG NEUTROPHILS) 88 % (16-70)
[2017-08-05 07:11] LABS: ACANTHOCYTES 1+ (NORMAL); BURR CELLS 1+ (NORMAL); DOHLE BODIES PRESENT (NONE SEEN); OVALOCYTES 2+ (NORMAL)
[2017-08-05] MEDS ORDERED: BISACODYL 10 MG SUPP RECTAL ONE (07:45)
[2017-08-05] MEDS: levETIRAcetam INJ 500 MG in SODIUM CHLORIDE 0.9% INJ 100 ML IV SCH ×2 (08:01→20:13)
[2017-08-05] MEDS: CHLORHEXIDINE 0.12% (ORAL KIT) 15 ML CUP MT SCH ×2 (08:02→20:14)
[2017-08-05] MEDS: PRAVASTATIN SOD 40 MG TAB PO SCH (08:02)
[2017-08-05] MEDS: MAGNESIUM HYDROXIDE SUSP 30 ML CUP PO SCH ×2 (08:02→20:12)
[2017-08-05] MEDS: hydrALAZINE HCL 100 MG TAB PO SCH ×2 (08:02→20:13)
[2017-08-05] MEDS: DOCUSATE SODIUM 50 MG/SENNA 8.6 MG TAB PO SCH ×2 (08:02→20:12)
[2017-08-05] MEDS: LACTULOSE SYRUP 20 GM/30 ML CUP PO SCH (08:02)
[2017-08-05] MEDS: FAMOTIDINE 20 MG TAB PO SCH ×2 (08:03→20:12)
[2017-08-05] MEDS ORDERED: INSULIN HUMAN REGULAR 1,000 UNITS/10 ML VIAL IV PUSH ONE (09:15)
[2017-08-05] MEDS ORDERED: DEXTROSE 50% IN WATER 50 ML SYRINGE IV PUSH ONE (09:15)
[2017-08-05] MEDS: amLODIPine BESYLATE 5 MG TAB PO SCH (09:18)
--- NOTE | 2017-08-05 10:26 | HHI.PR ---
Neuropsych Emotional Emotional: UnabletoAssess: Emotional, Anxious/Fearful, Depressed/Sad, Hostile/ Resentful, Irritable/Angry/Frustrate, Labile, Constricted/Blunted Behavior Behavior: Intact: Impulsive/Agitated, Unable to Asses: Behavior, Coping/ Acceptance, Cooperative w/ Treatment, Motivation, Frustration Tolerance/[place], Suicidal/Homicidal Risk Psychosocial Psychosocial: Intact: Psychosocial, Family/Other Adjustment, Realistic Expectation, Unable to Asses: Self-Esteem/Confidence Progress Notes/Response to Tx Contents of Sessions: Adjustment, Level of Consciousness Time with Patient: 15 minutes Premorbid psychological status Premorbid Cognitive, Emotional and Behavioral Status: Tenuous. The patient has high school] years of education and is retired. The patient has no prior psychiatric difficulties, as described above. Substance abuse history is unremarkable. Behavioral Reactions of Patient and Family/Support System: Stable. The patient s family is experiencing ongoing issues of adjustment given the nature of the injury, and this aspect of recovery will require ongoing monitoring. Emotional/Behavioral Status of Patient and Family/Support System: Stable. Pertinent issues, if appropriate to this patients clinical care, are described in detail above. Maximizing acute care outcome It is recommended that the patient be monitored for emergent behavioral impulsivity as the medical condition evolves. This patients neuropathological challenges may limit his rehabilitation potential going forward, and these challenges will require specialized therapeutic skills to maximize outcome. Additionally, the patients family is experiencing ongoing issues of adjustment given the traumatic nature of the injury, and they may benefit from ongoing psychological assistance. At this point in the recovery process, the patient does not have cognitive capacity as the patient is unable to understand a situation and its likely consequences, nor is he able to manipulate information rationally. Cognitive capacity will be assessed throughout the recovery process. Anticipated Problems Ongoing areas of concern will include behavioral impulsivity, lack of insight and judgment, which is expected to improve with time and treatment. Presently , the patient is intubated and sedated. Treatment Plan This clinician will continue to follow with you throughout the course of this patients critical care treatment, and I will be available to meet with the patients family/support system to facilitate their understanding and the ongoing care of their family member. The goals of neuropsychological intervention shall be both educational and supportive to the family/support system as is deemed clinically appropriate. [facility] Level: I:No response-total assistance Impression 82 y/o male s/p TBI 2T fall on 07/30/2017. Diagnosis: (1) Major neurocognitive disorder as late effect of traumatic brain injury without behavioral disturbance Progress Note Narrative PTD 6. No neurobehavioral changes are appreciated, and the patient remains a [place]. The ICP bolt has been removed. He is off sedation. I will follow. Micah Sotelo PhD Aug 05, 2017 10:26 am
[2017-08-05] MEDS: SODIUM POLYSTYRENE SULFONATE SUSP 15 GM/60 ML CUP PO SCH ×3 (10:44→15:02)
[2017-08-05] MEDS ORDERED: cloNIDine HCL 0.3 MG/24 HR PATCH T-DERMAL SCH (11:00)
--- NOTE | 2017-08-05 12:00 | HHI.NSPN ---
(Kathe Murphy) Note Status Status: Progress Note (Kathe Murphy) Interval History Interval History This is an 82-year-old gentleman who fell backwards off of a ladder approximately 10 feet. He underwent a brief round of CPR but was found to be spontaneously breathing so it was stopped patient was brought in the trauma bay hypertensive and confused he was intubated in the trauma bay. No seizure activity reported. No tongue biting. No incontinence of stool or urine. No tonic-clonic movements. He had unequal pupils and a coffee-ground emesis prior to intubation. He was upgraded to a level I trauma alert. He was resuscitated according to the ATLS protocol and full trauma workup was carried down. He was found to have right subarachnoid hemorrhage as well as subdural hematoma. He was given 2 units of platelets that for his platelet insufficiency due to Plavix. He was moving his extremities. Neurosurgical consultation was requested 07/31/17. Remains intubated and sedated. ICP monitor in place. A follow-up CT of the brain was obtained 08/01/17: intubated and sedated, ICPs below 10. 08/02/17: intubated, sedated. ICPs stable. f/u CT Brain yesterday showed slight increase in size of left subdural hematoma per Dr. Horne' review. decreasing renal function - nephrology consulted, also now with PVCs. 08/03/17: remains intubated, sedated on fentanyl and propofol drips. ICPs below 20. 08/04/17: ICPs stable overnight, f/u CT Brain this morning completed. intubated and sedated. 08/05/17: intubated and currently only minimally sedated, minimal eye opening when suctioned. (Kathe Murphy) Labs, Micro, & Vital Signs Results Date Time Temp Pulse Resp B/P (MAP) Pulse Ox O2 Delivery O2 Flow Rate FiO2 08/05/17 10:45 74 161/69 08/05/17 10:00 74 08/05/17 08:34 69 159/66 08/05/17 08:00 67 08/05/17 08:00 97.2 68 17 182/76 (111) 96 08/05/17 08:00 60 08/05/17 07:33 96 60 08/05/17 06:08 62 144/61 08/05/17 06:00 63 08/05/17 04:28 96 50 08/05/17 04:00 50 08/05/17 04:00 98.2 70 16 142/65 (90) 96 08/05/17 04:00 70 08/05/17 03:47 72 142/63 08/05/17 02:00 70 08/05/17 01:49 71 150/67 08/05/17 00:01 67 145/63 08/05/17 00:00 50 08/05/17 00:00 66 08/05/17 00:00 97.5 66 17 146/65 (92) 97 08/04/17 23:56 97 50 08/04/17 22:15 72 158/70 08/04/17 22:00 64 08/04/17 20:45 74 161/72 08/04/17 20:38 96 50 08/04/17 20:00 76 08/04/17 20:00 98.1 76 22 165/71 (102) 96 08/04/17 20:00 50 08/04/17 18:52 82 162/70 08/04/17 18:00 85 08/04/17 17:12 71 163/70 08/04/17 16:16 99 50 08/04/17 16:00 67 08/04/17 16:00 97.2 76 20 174/75 (108) 96 08/04/17 16:00 50 08/04/17 15:04 71 156/70 08/04/17 14:00 73 08/04/17 13:22 66 156/67 08/04/17 12:10 70 159/69 08/04/17 12:00 97.9 69 17 159/69 (99) 97 08/04/17 12:00 50 08/04/17 12:00 69 Constitutional Vital Signs Date Time Temp Pulse Resp B/P (MAP) Pulse Ox O2 Delivery O2 Flow Rate FiO2 08/05/17 10:45 74 161/69 08/05/17 10:00 74 08/05/17 08:34 69 159/66 3/9/18 08:00 67 08/05/17 08:00 97.2 68 17 182/76 (111) 96 08/05/17 08:00 60 08/05/17 07:33 96 60 08/05/17 06:08 62 144/61 08/05/17 06:00 63 08/05/17 04:28 96 50 08/05/17 04:00 50 08/05/17 04:00 98.2 70 16 142/65 (90) 96 08/05/17 04:00 70 08/05/17 03:47 72 142/63 08/05/17 02:00 70 08/05/17 01:49 71 150/67 08/05/17 00:01 67 145/63 08/05/17 00:00 50 08/05/17 00:00 66 08/05/17 00:00 97.5 66 17 146/65 (92) 97 08/04/17 23:56 97 50 08/04/17 22:15 72 158/70 08/04/17 22:00 64 08/04/17 20:45 74 161/72 08/04/17 20:38 96 50 08/04/17 20:00 76 08/04/17 20:00 98.1 76 22 165/71 (102) 96 08/04/17 20:00 50 08/04/17 18:52 82 162/70 08/04/17 18:00 85 08/04/17 17:12 71 163/70 08/04/17 16:16 99 50 08/04/17 16:00 67 08/04/17 16:00 97.2 76 20 174/75 (108) 96 08/04/17 16:00 50 08/04/17 15:04 71 156/70 08/04/17 14:00 73 08/04/17 13:22 66 156/67 08/04/17 12:10 70 159/69 08/04/17 12:00 97.9 69 17 159/69 (99) 97 08/04/17 12:00 50 08/04/17 12:00 69 (Kathe Murphy) Physical Exam Mr. Alonzo is intubated and minimally sedated, he has minimal eyes opening when suctioned. did not open eyes to void. he does not follow commands. Head: Right bolt site with steri strips in place, dry. Cranial Nerves: Pupils right 2mm, left 3 mm round. Cervical Spine: soft, supple Motor: not following commands for testing, minimal withdraw in feet bilaterally , no response to pain in upper extremities. diffuse extremity swelling Sensory: minimal response to painful stimuli in feet Cerebellar: cannot be adequately assessed due to the patient's neurological condition. Heart: regular rate, rhythm Resp: clear, mechanically ventilated Skin: warm, dry (Kathe Murphy) Mr. Alonzo is intubated and minimally sedated, he has minimal eyes opening when suctioned. did not open eyes to void. he does not follow commands. Head: Right bolt site with steri strips in place, dry. Cranial Nerves: Pupils right 2mm, left 3 mm round. Cervical Spine: soft, supple Motor: not following commands for testing, minimal withdraw in feet bilaterally , no response to pain in upper extremities. diffuse extremity swelling Sensory: minimal response to painful stimuli in feet Cerebellar: cannot be adequately assessed due to the patient's neurological condition. Heart: regular rate, rhythm Resp: clear, mechanically ventilated Skin: warm, dry (Les Horne MD) Medications Current Medications Current Medications Medications (Trade) Dose Ordered Sig/Juliet Route PRN Reason Start Time Stop Time Status Last Admin Dose Admin Sodium Chloride (NS Flush) 2 ml UNSCH PRN IV FLUSH FLUSH AFTER USING IV ACCESS 07/30/17 12:45 08/03/17 09:43 Ondansetron HCl (Zofran Inj) 4 mg Q6H PRN IV PUSH NAUSEA OR VOMITING 07/30/17 12:45 Miscellaneous Information 1 Q361D XX 07/30/17 12:45 Chlorhexidine Gluconate (Chlorhexidine 2% Cloth) Taper DAILY@04 TOP 07/31/17 04:00 07/27/18 03:59 08/05/17 03:26 Chlorhexidine Gluconate (Chlorhexidine 2% Cloth) 3 pack UNSCH PRN TOP HYGIENIC CARE 07/30/17 12:45 Chlorhexidine Gluconate (Peridex 0.12% Liq) 15 ml BID@08,20 MT 07/30/17 20:00 08/05/17 08:02 Fentanyl Citrate 250 ml @ 5 mls/hr TITRATE PRN IV Sedation 07/30/17 13:30 08/05/17 03:15 Propofol 100 ml @ 2.64 mls/hr TITRATE PRN IV SEDATION 07/30/17 13:30 08/05/17 06:56 Famotidine (Pepcid) 10 mg BID PO 07/30/17 21:00 08/05/17 08:03 Nicardipine HCl 25 mg/Sodium Chloride 250 ml @ 50 mls/hr TITRATE PRN IV Blood pressure management 07/30/17 16:15 08/05/17 10:45 Pravastatin Sodium (Pravachol) 40 mg DAILY PO 07/31/17 09:00 08/05/17 08:02 Dextrose (D50w (Vial) Inj) 50 ml UNSCH PRN IV PUSH HYPOGLYCEMIA-SEE COMMENTS 07/31/17 07:45 Glucagon (Glucagon Inj) 1 mg UNSCH PRN OTHER HYPOGLYCEMIA-SEE COMMENTS 07/31/17 07:45 Terazosin HCl (Hytrin) 10 mg HS PO 07/31/17 21:00 08/04/17 20:46 Hydralazine HCl (Apresoline) 100 mg Q12HR PO 07/31/17 09:00 08/05/17 08:02 Levetriacetam 500 mg/Sodium Chloride 105 ml @ 420 mls/hr Q12HR IV 08/01/17 10:00 08/05/17 08:01 Senna/Docusate Sodium (Jackelyn-Colace) 1 tab BID PO 08/01/17 21:00 08/05/17 08:02 Lactulose (Lactulose Liq) 30 ml DAILY PO 08/01/17 16:15 08/05/17 08:02 Bisacodyl (Dulcolax Supp) 10 mg DAILY PRN RECTAL Constipation 08/01/17 16:15 Insulin Aspart (NovoLOG SUPPLEMENTAL SCALE) 1 Q6HR SQ 08/01/17 18:00 Chlorothiazide Sodium (Diuril Inj) 500 mg Q12H IV 08/03/17 01:00 08/05/17 00:00 Albuterol/ Ipratropium (Duoneb Neb) 1 ampule Q6HR NEB NEB 08/02/17 22:00 08/05/17 07:21 Metoprolol Tartrate (Lopressor Inj) 5 mg Q6H IV PUSH 08/04/17 10:00 08/05/17 09:16 Hydralazine HCl (Apresoline Inj) 10 mg Q4HR PRN IV PUSH SBP>160, DBP>90 08/04/17 12:30 08/04/17 19:58 Furosemide (Lasix Inj) 80 mg Q8HR IV PUSH 08/04/17 22:00 08/05/17 05:44 Magnesium Hydroxide (Milk Of Magnesia Liq) 30 ml BID PO 08/05/17 09:00 08/05/17 08:02 Clonidine (Catapres-Tts 0.3 Mg Patch.7d) 1 patch Q7D T-DERMAL 08/05/17 11:00 08/05/17 11:49 Metoclopramide HCl (Reglan Inj) 5 mg Q8HR IV PUSH 08/05/17 14:00 Amlodipine Besylate (Norvasc) 5 mg DAILY PO 08/05/17 09:15 08/05/17 09:18 Sodium Polystyrene Sulfonate (Kayexalate Liq) 15 gm Q2HR PO 08/05/17 10:00 08/05/17 14:01 08/05/17 10:44 Heparin Sodium (Porcine) (Heparin Inj) 5,000 units Q8HR SQ 08/05/17 14:00 Miscellaneous Information 1 Q7D T-DERMAL 08/12/17 11:00 (Kathe Murphy) Current Medications Current Medications Ondansetron HCl (Zofran Inj) 4 mg STK-MED ONCE .ROUTE ; Start 07/30/17 at 11:55; Stop 07/30/17 at 11:56; Status DC Propofol 100 ml @ As Directed STK-MED ONCE .ROUTE ; Start 07/30/17 at 12:04; Stop 07/30/17 at 12:05; Status DC Nicardipine HCl (Cardene Inj) 25 mg STK-MED ONCE .ROUTE ; Start 07/30/17 at 12:08 ; Stop 07/30/17 at 12:09; Status DC Sodium Chloride 1,000 ml @ 60 mls/hr [id number] IV Last administered on 08/01/17at 08:45; Start 07/30/17 at 12:31; Stop 08/01/17 at 11:50; Status DC Sodium Chloride (NS Flush) 2 ml UNSCH PRN IV FLUSH FLUSH AFTER USING IV ACCESS Last administered on 08/03/17at 09:43; Start 07/30/17 at 12:45 Ondansetron HCl (Zofran Inj) 4 mg Q6H PRN IV PUSH NAUSEA OR VOMITING; Start 07/30/17 at 12:45 Multivitamins 10 ml/Thiamine HCl 100 mg/Folic Acid 1 mg/Sodium Chloride 511.2 ml @ 125 mls/hr Q24H IV Last administered on 08/01/17at 15:19; Start 07/30/17 at 15:00; Stop 08/01/17 at 19:06; Status DC Docusate Sodium (Colace) 100 mg BID PO Last administered on 08/01/17at 08:44; Start 07/30/17 at 21:00; Stop 08/01/17 at 16:11; Status DC Magnesium Hydroxide (Milk Of Magnesia Liq) 30 ml Q6H PRN PO CONSTIPATION; Start 07/30/17 at 12:45; Stop 08/01/17 at 16:11; Status DC Miscellaneous Information 1 Q361D XX ; Start 07/30/17 at 12:45 Chlorhexidine Gluconate (Chlorhexidine 2% Cloth) Taper DAILY@04 TOP Last administered on 08/05/17at 03:26; Start 07/31/17 at 04:00; Stop 07/27/18 at 03:59 Chlorhexidine Gluconate (Chlorhexidine 2% Cloth) 3 pack UNSCH PRN TOP HYGIENIC CARE; Start 07/30/17 at 12:45 Propofol 100 ml @ 0 mls/hr TITRATE PRN IV SEDATION; Start 07/30/17 at 13:00; Stop 07/30/17 at 13:30; Status DC Chlorhexidine Gluconate (Peridex 0.12% Liq) 15 ml BID@08,20 MT Last administered on 08/05/17at 08:02; Start 07/30/17 at 20:00 Propofol 100 ml @ 0 mls/hr TITRATE PRN IV SEDATION; Start 07/30/17 at 13:00; Stop 07/30/17 at 13:00; Status DC Fentanyl Citrate 250 ml TITRATE PRN IV SEDATION; Start 07/30/17 at 13:00; Stop 07/30/17 at 13:00; Status DC Fentanyl Citrate 250 ml TITRATE PRN IV SEDATION; Start 07/30/17 at 13:00; Stop 07/30/17 at 13:30; Status DC Albuterol/ Ipratropium (Duoneb Neb) 1 ampule Q6HR NEB NEB Last administered on 08/02/17at 20:40; Start 07/30/17 at 16:00; Stop 08/02/17 at 20:55; Status DC Diphtheria/ Tetanus/Acell Pertussis (Boostrix Inj) 0.5 ml STK-MED ONCE IM ; Start 07/30/17 at 12:58; Stop 07/30/17 at 12:59; Status DC Etomidate (Amidate Inj) 20 mg STK-MED ONCE .ROUTE ; Start 07/30/17 at 13:01; Stop 07/30/17 at 13:02; Status DC Succinylcholine Chloride (Quelicin Inj) 200 mg STK-MED ONCE .ROUTE ; Start at 13:01; Stop 07/30/17 at 13:02; Status DC Fentanyl Citrate 250 ml @ 5 mls/hr TITRATE PRN IV Sedation Last administered on 08/05/17at 03:15; Start 07/30/17 at 13:30 Propofol 100 ml @ 2.64 mls/hr TITRATE PRN IV SEDATION Last administered on 08/05at 06:56; Start 07/30/17 at 13:30 Famotidine (Pepcid) 10 mg BID PO Last administered on 08/05/17at 08:03; Start 07/30/17 at 21:00 Nicardipine HCl 25 mg/Sodium Chloride 250 ml @ 50 mls/hr TITRATE PRN IV Blood pressure management Last administered on 08/05/17at 10:45; Start 07/30/17 at 16:15 Spironolactone (Aldactone) 25 mg DAILY PO Last administered on 08/01/17at 08:44; Start 07/31/17 at 09:00; Stop 08/01/17 at 09:54; Status DC Pravastatin Sodium (Pravachol) 40 mg DAILY PO Last administered on 08/05/17at 08: 02; Start 07/31/17 at 09:00 Metoprolol Tartrate (Lopressor) 25 mg Q12HR PO Last administered on 08/03/17at 20 :33; Start 07/31/17 at 09:00; Stop 08/04/17 at 09:36; Status DC Hydralazine HCl (Apresoline) 25 mg Q12HR PO Last administered on 07/31/17at 07:42 ; Start 07/31/17 at 09:00; Stop 07/31/17 at 09:00; Status DC Furosemide (Lasix Inj) 40 mg BID@09,18 IV PUSH Last administered on 08/02/17at 10 :33; Start 07/31/17 at 09:00; Stop 08/02/17 at 13:29; Status DC Dextrose (D50w (Vial) Inj) 50 ml UNSCH PRN IV PUSH HYPOGLYCEMIA-SEE COMMENTS; Start 07/31/17 at 07:45 Glucagon (Glucagon Inj) 1 mg UNSCH PRN OTHER HYPOGLYCEMIA-SEE COMMENTS; Start 07/31/17 at 07:45 Insulin Aspart (NovoLOG SUPPLEMENTAL SCALE) 1 Q6H SQ ; Start 07/31/17 at 07:45; Stop 08/01/17 at 17:31; Status DC Sodium Chloride 250 ml @ 15 mls/hr ONCE ONCE IV Last administered on at 10:55; Start 07/31/17 at 08:15; Stop 08/01/17 at 00:54; Status DC Terazosin HCl (Hytrin) 10 mg HS PO Last administered on 08/04/17at 20:46; Start 07/31/17 at 21:00 Hydralazine HCl (Apresoline) 100 mg Q12HR PO Last administered on 08/05/17at 08: 02; Start 07/31/17 at 09:00 Levetriacetam 500 mg/Sodium Chloride 105 ml @ 420 mls/hr Q12HR IV Last administered on 08/05/17at 08:01; Start 08/01/17 at 10:00 Dextrose 1,000 ml @ 42 mls/hr [id number] IV Last administered on 08/01/17at 13:09; Start 08/01/17 at 12:00; Stop 08/01/17 at 16:51; Status DC Chlorothiazide Sodium (Diuril Inj) 250 mg Q12H IV Last administered on at 13:15; Start 08/01/17 at 13:00; Stop 08/02/17 at 13:29; Status DC Clonidine (Catapres-Tts 0.2 Mg Patch.7d) 1 patch Q7D T-DERMAL ; Start 08/01/17 at 13:30; Stop 08/01/17 at 15:09; Status DC Clonidine (Catapres-Tts 0.2 Mg Patch.7d) 1 patch Q7D T-DERMAL ; Start 08/01/17 at 16:00; Stop 08/01/17 at 17:30; Status DC Miscellaneous Information 1 Q7D T-DERMAL ; Start 08/08/17 at 16:00; Stop at 16:00; Status DC Senna/Docusate Sodium (Jackelyn-Colace) 1 tab BID PO Last administered on 08/05/17at 08:02; Start 08/01/17 at 21:00 Lactulose (Lactulose Liq) 30 ml DAILY PO Last administered on 08/05/17at 08:02; Start 08/01/17 at 16:15 Bisacodyl (Dulcolax Supp) 10 mg DAILY PRN RECTAL Constipation; Start 08/01/17 at 16:15 Clonidine (Catapres-Tts 0.2 Mg Patch.7d) 1 patch Q7D T-DERMAL Last administered on 08/01/17at 20:31; Start 08/01/17 at 20:00; Stop 08/05/17 at 09:18; Status DC Miscellaneous Information 1 Q7D T-DERMAL ; Start 08/01/17 at 20:00; Stop 08/05/17 at 09:18; Status DC Insulin Aspart (NovoLOG SUPPLEMENTAL SCALE) 1 Q6HR SQ ; Start 08/01/17 at 18:00 Sodium Bicarbonate (Sodium Bicarbonate 8.4% Inj) 50 meq UNSCH X1 IV Last administered on 08/02/17at 05:41; Start 08/02/17 at 05:45; Stop 08/02/17 at 08:20; Status DC Chlorothiazide Sodium (Diuril Inj) 500 mg Q12H IV Last administered on at 12:53; Start 08/03/17 at 01:00 Furosemide (Lasix Inj) 80 mg BID@,18 IV PUSH Last administered on 08/04/17at 18 :34; Start 08/02/17 at 18:00; Stop 08/04/17 at 19:28; Status DC Albuterol/ Ipratropium (Duoneb Neb) 1 ampule Q6HR NEB NEB Last administered on 08/05/17 07:21; Start 08/02/17 at 22:00 Metoprolol Tartrate (Lopressor Inj) 5 mg Q6H IV PUSH Last administered on 09:16; Start 08/04/17 at 10:00 Hydralazine HCl (Apresoline Inj) 10 mg Q4HR PRN IV PUSH SBP>160, DBP>90 Last administered on 08/04/17 19:58; Start 08/04/17 at 12:30 Furosemide (Lasix Inj) 80 mg Q8HR IV PUSH Last administered on 08/05/17 13:11; Start 08/04/17 at 22:00 Sodium Bicarbonate (Sodium Bicarbonate 8.4% Inj) 100 meq STK-MED ONCE .ROUTE Last administered on 08/05/17 05:25; Start 08/05/17 at 05:25; Stop 08/05/17 at 05: 26; Status DC Bisacodyl (Dulcolax Supp) 10 mg ONCE ONCE RECTAL Last administered on 08:03; Start 08/05/17 at 07:45; Stop 08/05/17 at 07:46; Status DC Magnesium Hydroxide (Milk Of Magnesia Liq) 30 ml BID PO Last administered on 08:02; Start 08/05/17 at 09:00 Clonidine (Catapres-Tts 0.3 Mg Patch.7d) 1 patch Q7D T-DERMAL Last administered on 08/05/17 11:49; Start 08/05/17 at 11:00 Metoclopramide HCl (Reglan Inj) 5 mg Q8HR IV PUSH Last administered on 13:12; Start 08/05/17 at 14:00 Amlodipine Besylate (Norvasc) 5 mg DAILY PO Last administered on 08/05/17 09:18 ; Start 08/05/17 at 09:15 Dextrose (D50w (Syr) Inj) 50 ml ONCE ONCE IV PUSH Last administered on at 10:44; Start 08/05/17 at 09:15; Stop 08/05/17 at 09:16; Status DC Insulin Human Regular (NovoLIN R INJ) 10 units ONCE ONCE IV PUSH Last administered on 08/05/17at 10:53; Start 08/05/17 at 09:15; Stop 08/05/17 at 09:16; Status DC Sodium Polystyrene Sulfonate (Kayexalate Liq) 15 gm Q2HR PO Last administered on 08/05/17at 12:53; Start 08/05/17 at 10:00; Stop 08/05/17 at 14:02; Status DC Heparin Sodium (Porcine) (Heparin Inj) 5,000 units Q8HR SQ Last administered on 08/05/17at 13:11; Start 08/05/17 at 14:00 Miscellaneous Information 1 Q7D T-DERMAL ; Start 08/12/17 at 11:00 Sodium Chloride 1,000 ml @ 0 mls/hr Q0M PRN OTHER For Prime & Rinse Back; Start 08/05/17 at 13:51 Sodium Chloride 1,000 ml @ 200 mls/hr Q5H PRN IV WITH DIALYSIS; Start 08/05/17 at 13:51 Sodium Chloride 1,000 ml @ 0 mls/hr Q0M PRN OTHER WITH DIALYSIS; Start 08/05/17 at 13:51 Albumin Human 100 ml @ 60 mls/hr UNSCH PRN IV WITH DIALYSIS; Start 08/05/17 at 14:00 Sodium Chloride (NS Flush) 5 ml UNSCH PRN IV FLUSH WITH DIALYSIS; Start at 14:00 Heparin Sodium (Porcine) (Heparin Inj) UNSCH PRN .XX WITH DIALYSIS; Start 08/05 at 14:00 Gentamicin Sulfate (Gentamicin Inj) 20 mg UNSCH PRN OTHER WITH DIALYSIS; Start 08/05/17 at 14:00 Ondansetron HCl (Zofran Inj) 4 mg UNSCH PRN IV PUSH WITH DIALYSIS; Start at 14:00 Acetaminophen (Tylenol) 650 mg UNSCH PRN PO for headach, pain, temp > 101F; Start 08/05/17 at 14:00 Diphenhydramine HCl (Benadryl) 25 mg UNSCH PRN PO for hives/itching/anaphylaxis ; Start 08/05/17 at 14:00 Nitroglycerin (Nitrostat Sl) 0.4 mg UNSCH PRN SL CHEST PAIN; Start 08/05/17 at 14:00 Clonidine (Catapres) 0.1 mg UNSCH PRN PO for BP > 180/100 X 2 readings; Start 08/05/17 at 14:00 Gelatin (Gelfoam 12 Mm/7 Mm Top) 1 foam UNSCH PRN TOP SEE LABEL COMMENTS; Start 08/05/17 at 14:00 (Les Horne MD) Medical Decision Making MDM Remarks 82-year-old gentleman who fell backwards off of a ladder approximately 10 feet TBI, s/p placement of intracranial pressure monitor with stable ICPs CT Brain 07/31/17: increase in the size of the left subdural hematoma. Stable right subdural hematoma. Increase in size of the right temporal tip hematoma. Stable size left temporal hematoma 08/02/27: Stable intraparenchymal, subdural, and intraventricular hemorrhage. No midline shift or new sites of hemorrhage. 08/04/17 reports Stable intracranial findings including bilateral subdural hematomas, intraventricular blood products, and bilateral temporal lobe hemorrhagic contusions There is no midline shift or herniation. Ventricles are stable in size. (Kathe Murphy) Plan Plan Remarks cont nonsurgical mgt of ICH cont mgt per trauma cont serial neuro checks and f/u neuro exam (Kathe Murphy) Attending Statement I reviewed yesterday's CT brain Chest X-Ray 08/05/17 0600 Signed Impressions: Service Date/Time: Saturday, August 05, 2017 02:48 - CONCLUSION: No significant change. Ra Ballard MD Chest X-Ray 08/04/17 0600 Signed Impressions: Service Date/Time: July 05:33 - CONCLUSION: Stable chest x-ray with bibasilar opacities most likely representing pleural effusions with associated atelectasis and/or airspace consolidation. Ra Pulliam MD Head CT 08/04/17 0000 Signed Impressions: Service Date/Time: July 04:37 - CONCLUSION: 1. Stable intracranial findings including bilateral subdural hematomas, intraventricular blood products, and bilateral temporal lobe hemorrhagic contusions. There is no midline shift or herniation. Ventricles are stable in size. 2. There is new fluid in the mastoid air cells and small air fluid levels bilaterally in the maxillary antra. These changes may be related to intubation. Ra Pulliam MD Given his age and combination of injuries, Mr Alonzo remains in critical condition. He is at risk of clinical deterioration. We likely will need dialysis , and he is not weaning well from ventilator Pulmonary. Continue full mechanical ventilation in Assist control mode of ventilation aggressive pulmonary toilette, nasotracheal suction, and breathing treatments with nebulizers. Daily PT and OT Renal. monitor closely urine output, BUN and creatinine Endocrine.Monitor serial Acu checks and SSI as needed in detail ID monitor for signs of infection Protonix for stress ulcer prophylaxis Gilbert hose and SCD's for DVT prophylaxis Further recommendations will be provided depending on the patient's clinical evaluation and follow up studies The exam, history, and the medical decision-making described in the above note were completed with the assistance of the mid-level provider. I reviewed and agree with the findings presented. I attest that I had a [id number] encounter with the patient on the same day, and personally performed and documented my assessment and findings in the medical record. I discussed his condition with dr Vines at bedside (Les Horne MD) Kathe Murphy Aug 05, 2017 12:00 Les Horne MD Aug 05, 2017 14:39
[2017-08-05] MEDS: CHLOROTHIAZIDE SOD 500 MG VIAL IV SCH ×2 (12:53)
[2017-08-05] MEDS: HEPARIN SODIUM - SQ 10,000 UNITS/ML VIAL SQ SCH ×2 (13:11→21:01)
[2017-08-05] MEDS: METOCLOPRAMIDE HCL 10 MG/2 ML VIAL IV PUSH SCH ×2 (13:12→21:00)
--- NOTE | 2017-08-05 13:18 | HHI.NPPN ---
Subjective History of Present Illness This patient is an 82-year-old male who unfortunately cannot provide any history secondary to head injury, intubated status on a ventilator. History obtained from records and from his daughter. Limited history available. Family patient has a history suggesting peripheral vascular disease, congestive heart failure, chronic lower extremity edema with dyspnea, chronic renal sufficiency?. According to the patient's daughter he was hospitalized back in 2013 at [facility]. Developed a ruptured appendix post colonoscopy subsequently developing acute renal failure and requiring laparotomy. According to the patient's daughter he was on dialysis temporarily. Not following up with a graphics intern routinely in recent times. They cannot recall name of his primary care physician currently also. Patient apparently fell short distance from a ladder and hit his head and subsequently has been diagnosed as having a subdural as well as subarachnoid hemorrhage. Creatinine was elevated at the time of presentation at 1.5 and chest x-ray showed evidence of congestive heart failure and the patient had a hemoglobin that was only 7.4. Echocardiogram performed July 31, 2017 revealed an ejection fraction of 50-55%. Patient's albumin on presentation his low with a low corrected calcium 7.8. Interval History Patient remains intubated on ventilatory support. Review of Systems General General Remarks Unable to obtain Objective Data Data Vital Signs Date Time Temp Pulse Resp B/P (MAP) Pulse Ox O2 Delivery O2 Flow Rate FiO2 08/05/17 13:02 99 70 08/05/17 10:45 74 161/69 08/05/17 10:00 74 08/05/17 08:34 69 159/66 08/05/17 08:00 67 08/05/17 08:00 97.2 68 17 182/76 (111) 96 08/05/17 08:00 60 08/05/17 07:33 96 60 08/05/17 06:08 62 144/61 08/05/17 06:00 63 08/05/17 04:28 96 50 08/05/17 04:00 50 08/05/17 04:00 98.2 70 16 142/65 (90) 96 08/05/17 04:00 70 08/05/17 03:47 72 142/63 08/05/17 02:00 70 08/05/17 01:49 71 150/67 08/05/17 00:01 67 145/63 08/05/17 00:00 50 08/05/17 00:00 66 08/05/17 00:00 97.5 66 17 146/65 (92) 97 08/04/17 23:56 97 50 08/04/17 22:15 72 158/70 08/04/17 22:00 64 08/04/17 20:45 74 161/72 08/04/17 20:38 96 50 08/04/17 20:00 76 08/04/17 20:00 98.1 76 22 165/71 (102) 96 08/04/17 20:00 50 08/04/17 18:52 82 162/70 08/04/17 18:00 85 08/04/17 17:12 71 163/70 08/04/17 16:16 99 50 08/04/17 16:00 67 08/04/17 16:00 97.2 76 20 174/75 (108) 96 08/04/17 16:00 50 08/04/17 15:04 71 156/70 08/04/17 14:00 73 08/04/17 13:22 66 156/67 -: 08/05/17 0321 08/05/17 0321 Physical Exam General Appearance: Comfortable, Obese Appearance Remarks ET tube in place. Eyes Eye Exam: Sclera White Pulmonary Resp Exam: Breath Sounds Equal, No Distress, Decreased Bases Cardiology CV Exam: Regular, Normal Sinus Rhythm Gastrointestinal/Abdomen GI Exam: Non-Tender, Distended Extremeties Extremities Exam: Moderate Edema (improved slightly since yesterday.), Pitting Edema, Dependent Edema (diffuse edema involving all extremities, hips and dependent torso.) Neurologic Neuro Exam: Sedated Assessment/Plan Discussed Condition With: Relative Problem List: (1) Acute kidney insufficiency ICD Codes: N28.9 - Disorder of kidney and ureter, unspecified Status: Acute Plan: Unfortunately the patient's urine output has diminished and his azotemia has worsened significantly since yesterday with developing acidosis and now hyperkalemia. Case discussed with critical care. Apparently patient's prognosis for meaningful recovery is very poor and the patient will likely require PEG placement and trach placement if ongoing aggressive care is continued. Critical care will discussed with the patient regarding continued aggressiveness of care. Could consider initiation of dialytic support today if family wishes to continue with aggressive management but given the above in my opinion the patient is a very poor long-term dialysis candidate and I would not recommend long-term dialytic support if there is little hope for meaningful recovery in the future. We'll await decision of family. If they do wish to proceed with dialysis will request placement of a hemodialysis Vas-Cath with initiation of hemodialysis. If the patient require dialysis long-term and the family wishes continue same he will likely require institutionalization in a long-term care facility which could provide dialytic services most likely out of town. Medications should be adjusted for the patient's estimated GFR if clinically indicated. Avoid agents with significant potential for nephrotoxicity possible including NSAIDs for analgesia, iodine contrast agents. Gadolinium is contraindicated if the GFR is below 30. (2) CKD (chronic kidney disease) stage 3, GFR 30-59 ml/min ICD Codes: N18.3 - Chronic kidney disease, stage 3 (moderate) Plan: Baseline renal function unknown. Patient currently has a history of chronic lower extremity edema and dyspnea. Unfortunately previous records not available but I suspect that the patient has a component of chronic CHF. 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 Also previous history of acute renal failure may have resulted in significant deterioration in his baseline renal function but those records are not available to me currently. (3) Congestive heart failure ICD Codes: I50.9 - Heart failure, unspecified Plan: Continue furosemide and Diuril as ordered. Monitor response. Most likely has some degree of diastolic dysfunction as EF was reported as being 50-55%. (4) Edema due to congestive heart failure ICD Codes: I50.9 - Heart failure, unspecified Plan: In addition patient does have evidence of hypoalbuminemia. Need to determine as the patient has significant proteinuria. UPCR pending (5) Major neurocognitive disorder as late effect of traumatic brain injury without behavioral disturbance ICD Codes: S06.9X9S - Unspecified intracranial injury with loss of consciousness of unspecified duration, sequela; F02.80 - Dementia in other diseases classified elsewhere without behavioral disturbance Status: Acute (6) Hyperkalemia ICD Codes: E87.5 - Hyperkalemia Plan: Has been treated with bicarbonate as well as Kayexalate by critical care. Problem Qualifiers (1) Congestive heart failure: Michell Chavez MD Aug 05, 2017 13:18
[2017-08-05] MEDS ORDERED: SODIUM CHLOR 0.9% 1000 ML INJ 1,000 ML OTHER PRN ×2 (13:51)
[2017-08-05] MEDS ORDERED: SODIUM CHLOR 0.9% 1000 ML INJ 1,000 ML IV PRN (13:51)
[2017-08-05] MEDS ORDERED: SODIUM CHLORIDE 0.9% FLUSH 10 ML FLUSH IV FLUSH PRN (14:00)
[2017-08-05] MEDS ORDERED: ONDANSETRON HCL 4 MG/2 ML VIAL IV PUSH PRN (14:00)
[2017-08-05] MEDS ORDERED: ACETAMINOPHEN 325 MG TAB PO PRN (14:00)
[2017-08-05] MEDS ORDERED: NITROGLYCERIN 0.4 MG SL 25 TABS/BTL SL PRN (14:00)
[2017-08-05] MEDS ORDERED: diphenhydrAMINE HCL 25 MG CAP PO PRN (14:00)
[2017-08-05] MEDS ORDERED: cloNIDine HCL 0.1 MG TAB PO PRN (14:00)
[2017-08-05] MEDS ORDERED: GELATIN 12 MM/7 MM FOAM TOP PRN (14:00)
--- NOTE | 2017-08-05 14:28 | HHI.CCPN ---
Subjective Brief History ALTURAS: This is a 82-year-old gentleman who fell backwards off of a ladder with brief loss of consciousness and brief round of CPR at the scene was brought in as a level II trauma alert intubated in the trauma bay and upgraded to level I. He was found to have subdural and subarachnoid hemorrhages and was given 2 units of platelets for platelet dysfunction secondary to Plavix use. Final injuries: Right temporal intraparenchymal hemorrhage with slight subdural component Left frontoparietal and temporo-occipital subdural hematoma about 1 cm thick Patient has complex history of CHF,coronary artery disease, diabetes mellitus and chronic renal insufficiency requiring dialysis in 2013. Since then patient has been off dialysis but at this point creatinine is rising. 24 Hour Review/Hospital Course 07/[address] appears to be worse today with slight increase in the size of his bleeds Is currently on a Cardene drip to maintain systolic blood pressure less than 160 , his beta stacie has been held for a heart rate in the mid 50s 08/01/2017 Patient is intubated ventilated on propofol and fentanyl ICP measurements about 5-8 mmHg Remains sedated not moving any extremities at this time Hemodynamically patient is stable with hypertension. Patient is noted to be hypertensive from home and some of medications have been reinstituted In addition to Lopressor and hydralazine patient is currently on Cardene drip in order to keep systolic blood pressure under 160 mmHg Patient will need Catapres patch in order to wean off Cardene In face of increased creatinine and BUN patient did not have IV contrast to assess the chest and abdomen but externally there are no signs of trauma to either Renal function as above noted is impaired with rising creatinine and BUN. Nephrology consult from Dr. Chavez is greatly appreciated Patient will be managed expectantly and as the neurologic function improves sedation will be gradually weaned It should be noted that severe brain trauma in this age group with related medical problems survival is very low and patient is a high mortality probably in the range of 80-90%. 08/02/2017 Patient remains intubated ventilated and sedated with all neuroprotective measures Hemodynamically patient is stable and hypertensive on several antihypertensive drugs including Cardene noted to keep systolic blood pressure under 160 mmHg Bilateral breath sounds remains ventilatory dependent in the face of decreased level of consciousness On assist control ventilation 40% FiO2 Abdomen soft nontender will start on enteral feedings Nephrology help is greatly appreciated in the care of this patient with marginal renal function and he may need intermittent dialysis should his fluid status worsened and he becomes fluid overloaded 08/03/17 severe TBI on elderly patient with multiple medical issues PRINCE superimposed on chronic renal failure compensated metabolic acidosis secondary due to renal failure diuresis initiated by toaster operator zafar for BP control 08/04/2018 Patient this point is off sedation however there is no appreciable neurologic function except for some movement of upper extremities [place] Coma Scale 4 Hemodynamically patient is stable however quite hypertensive on multiple medications and even on Cardene drip difficulty controlling systolic blood pressure Cardiology help is greatly appreciated. Cardiac function intact and no signs of contusion or acute injury to the heart Bilateral breath sounds decreased over the right base were patient has a infiltrate in the right lower lobe Remains on assist control ventilation fully supported not breathing over the respirator but with good PO2 FiO2 gradient Abdomen is soft and enteral feeds of tolerated Renal function is gradually deteriorating and patient had underlying renal insufficiency prior to this event. He was on dialysis few years ago in an unrelated episode. At this point in discussions with family there is some ambiguity about which way to go. This patient has 90% mortality in 100% morbidity and most likely in the best case scenario patient will require tracheostomy feeding tube and will remain bedridden permanently 08/05/2017 PTD: 6 Mechanically ventilated and sedated Patient remains hypertensive on max Cardene. Increased clonidine patch and added Norvasc. Will have meeting with family to discuss plan of care and decision on whether to progress to dialysis. (Petrona Lopez) Objective Vital Signs Date Time Temp Pulse Resp B/P (MAP) Pulse Ox O2 Delivery O2 Flow Rate FiO2 08/05/17 13:02 99 70 08/05/17 10:45 74 161/69 08/05/17 08:00 97.2 17 Intake and Output 08/05/17 08/05/17 08/05/17 07:59 15:59 23:59 Intake Total 1450 ml Output Total 850 ml Balance 600 ml (Petrona Lopez) Result Diagram: 08/05/17 0321 08/05/17 0321 Other Results Laboratory Tests Test 08/05/17 03:50 Blood Gas Puncture Site RT RADIAL Blood Gas Patient Temperature 98.6 Blood Gas HCO3 12 mmol/L (22-26) Blood Gas Base Excess -12.9 mmol/L (-2-2) Blood Gas Oxygen Saturation 95 % (90-100) Arterial Blood pH 7.31 (7.380-7.420) Arterial Blood Partial Pressure CO2 25 mmHg (38-42) Arterial Blood Partial Pressure O2 97 mmHg (61-120) Arterial Blood Oxygen Content 12.4 Vol % (12.0-20.0) Arterial Blood Carboxyhemoglobin 1.0 % (0-4) Arterial Blood Methemoglobin 1.0 % (0-2) Blood Gas Hemoglobin 9.2 G/DL (12.0-16.0) Oxygen Delivery Device VENT Blood Gas Ventilator Setting SEE COMMENTS Blood Gas Inspired Oxygen 50 % Imaging Last 24 hours Impressions Chest X-Ray 08/05/17 0600 Signed Impressions: Service Date/Time: Saturday, August 05, 2017 02:48 - CONCLUSION: No significant change. Ra Ballard MD Objective Remarks GENERAL: This is a 82-year-old male lying in bed, sedated and intubated. SKIN: Warm and dry. HEAD: Normocephalic. ICP bolt in place. ENT: ETT to vent. OGT to TF. No nasal bleeding or discharge. Mucous membranes pink and moist. NECK: Trachea midline. No JVD. CARDIOVASCULAR: Regular rate and rhythm. CM show sinus rhythm. HR = 70-74 RESPIRATORY: Mechanically ventilated. Lungs are clear to auscultation. Breath sounds equal bilaterally. No distress or dyspnea. GASTROINTESTINAL: BS + x 4 quads. Abdomen soft, non-tender, nondistended. Dockery catheter in place to bedside drainage bag MUSCULOSKELETAL: Extremities without cyanosis. + peripheral pulses x 4 extremities. Warm with good capillary refill . Patient withdraws to pain bilateral lower extremities, but flaccid to bilateral upper extremities. Generalized edema. NEUROLOGICAL: Mechanically ventilated and sedated. (Petrona Lopez) Urinary Catheter Assessment Urinary Catheter: Yes Assessment to: Continue (ePtrona Lopez) Vascular Central Line Catheter Vascular Central Line Catheter: No (Petrona Lopez) Assessment and Plan Assessment: (1) Congestive heart failure ICD Code: I50.9 - Heart failure, unspecified Status: Chronic (2) Anemia ICD Code: D64.9 - Anemia, unspecified Status: Chronic (3) Acute kidney insufficiency ICD Code: N28.9 - Disorder of kidney and ureter, unspecified Status: Chronic (4) Respiratory failure ICD Code: J96.90 - Respiratory failure, unspecified, unspecified whether with hypoxia or hypercapnia Status: Acute (5) CKD (chronic kidney disease) stage 3, GFR 30-59 ml/min ICD Code: N18.3 - Chronic kidney disease, stage 3 (moderate) Status: Chronic (6) Unresponsive ICD Code: R41.89 - Other symptoms and signs involving cognitive functions and awareness Status: Acute (7) Intracranial bleed ICD Code: I62.9 - Nontraumatic intracranial hemorrhage, unspecified Status: Acute (8) Hypertensive emergency ICD Code: I16.1 - Hypertensive emergency Status: Acute (9) Edema due to congestive heart failure ICD Code: I50.9 - Heart failure, unspecified Status: Chronic (10) Dyspnea ICD Code: R06.00 - Dyspnea, unspecified Status: Acute (11) Traumatic brain injury ICD Code: S06.9X9A - Unspecified intracranial injury with loss of consciousness of unspecified duration, initial encounter Status: Acute (12) Major neurocognitive disorder as late effect of traumatic brain injury without behavioral disturbance ICD Code: S06.9X9S - Unspecified intracranial injury with loss of consciousness of unspecified duration, sequela; F02.80 - Dementia in other diseases classified elsewhere without behavioral disturbance Status: Acute Plan ALTURAS: This is a 82-year-old male who sustained a fall. He fell off a ladder approximately 10 feet, striking his head. + LOC. Short period of CPR and then the patient woke up, confused with unequal pupils. GCS 13. Systolic blood pressure = 200. Patient is on Plavix. INJURIES: Temporal SAH RIGHT temporal SDH ?Aspiration PMHx: CHF, HTN, DM, CRF, HLD, PVD, Perforated appendix- sepsis (2 years ago) Procedures: 07/30: Intubated 07/30: Baring Consults: CCM. Neurosurgery. Renal. Cardiology. Rehabilitation medicine. Neuropsych. Palliative care. Case management. Assessment and plan by system: NEUROLOGICAL: Neurosurgery consulted and assisting in management and care Sedated and mechanically ventilated Patient is sedated with propofol and fentanyl gtts Begin sedation vacations daily to assess weaning capability. Pt is sedated with a RASS score of -2 Provide analgesia for comfort and pain - fentanyl Serial neuro checks. CT scans: For any change in neurological status 08/04: CT Brain - stable 08/01: CT brain - stable 07/31: CT brain - increase L SDH. Increase R temporal hemorrhage 07/30: ICP bolt placement ICP = 2 Seizure precautions Seizure prophylaxis - IV Keppra HOB elevated 30 degrees - Hypernatremia status - 148 + peripheral pulses x 4 extremities. Patient remains flaccid in upper extremities Patient withdraws to pain and lower extremities CARDIOVASCULAR: Cardiology consulted and assisting in management and care Patient with history of CHF, HTN, HLD, PVD HR - 70-74 BP - 182/76 BP meds: Cardene gtt Lopressor 5 mg every 6 hours Scheduled Hydralazine 100 mg BID Hytrin 10 mg at bedtime Increase Catapres patch 2 to 0.3 mg Added Norvasc 5 mg QD Continually monitor for hemodynamic instability (shock and hypotension). Diuretics - LASIX 80 IV q 8H. Diuril 500mg BID Follow CMP - Electrolyte protocol - contraindicated due to CRF Obtain Echocardiogram: 07/31: Echo- EF 50-55%, mild pulm HTN RESPIRATORY: Critical care senior ui ux designer consulted and assisting in management and care Patient with history of CHF Ventilator dependent: PRVC/AC: 550 / 12 / 60% / 1.0 / + 10 PF ratio - 194 Increase PEEP carefully (to assist in oxygenation by recruiting alveoli.) Weaning - slowly, and as tolerated O2 Sats - Monitor for hypoxemia Goal of end tital CO2 = 35-40 Follow ABGs - Lung sounds - clear to auscultation, yet decreased to right lower lobe. Pulmonary toilet - L&S. Bronchodilators - Breathing treatments - duonebs. Chest X-Ray results - Bibasilar parenchymal consolidation and [id number] effusions persist, not significantly changed. No perceptible pneumothorax. VAP protocol in place - Follow-up Labs tomorrow Follow-up Chest X-Ray tomorrow GASTROINTESTINAL: Diet - tube feeding. TF - Glucerna 1.5@55 mL/HR Bowel sounds - + x 4 quads Bowel regimen . Colace. MOM. Lactulose. LBM - 0 Intensified with bisacodyl OR 1 Reglan 5 mg q 8h for increased residuals RENAL / URINARY: Vice President Industrial Relations consulted and assisting in management and care Patient with history of chronic renal failure Strict I&O - +325 BUN / creat 78 / 4.28 LASIX 80 IV q 8H.. Diuril 500mg BID - per nephrology K = 5.7 D50 1 Amp followed by 10 units regular insulin Kayexalate every 2 hours 3 doses Repeat BMP at [address] to bedside drainage bag - 1350 ml / 24 h 08/01: US kidney - no hydronephrosis Family has agreed to dialysis Vas-Cath to be placed Dr. Chavez is arranging dialysis treatments to begin ENDOCRINE: Patient with history of DM BGM - 121 SSI q 6h HEMATOLOGY: Patient with a history of chronic anemia H&H = 9.2 / 27.3 Continue to monitor for signs and symptoms of bleeding. Transfuse for < 7.0 08/03: PRBC 2 08/02: US Lower extremity study - NEGATIVE for DVT Monitor patient for any bleeding complications. INFECTIOUS DISEASE: Follow CBC Monitor for signs and symptoms of infection: WBC - 12.2 Fevers - 98.1 T max Administer antipyretics for temp as needed. Maintain vigorous aseptic care of central line/PIV to avoid blood stream infections. Consider a consult to ID for further management IV LINES: 07/30: Baring 07/30: ETT 07/30: OGT 07/30: Dockery PROPHYLAXIS: VAP - protocol in place GI - Pepcid 10 mg BID DVT - Mechanical VTE with SCDs. Chemical management started with Heparin 5000 2 8h. SKIN: Warm and dry And verbalized edema ACTIVITY: Status - BR while bolt in place PT and OT ordered. CASE MANAGEMENT: Consulted for assist with DC planning. EMOTIONAL SUPPORT: Provided to patient and family. Plan of care discussed. Family meeting to take place today to discuss plan of care and family's decision on whether to proceed with dialysis or not. Discussed with bedside RN upon rounds This patient is currently critically ill and injured and being managed in the ICU. The trauma team will round each day, and evaluate plan of care on a daily basis. Discussed pt condition and plan of care with collaborating trauma surgeon. (Petrona Lopez) Remarks patient seen and examined with DATA MANAGEMENT ENGINEER-agree with assessment and plan severe TBI-elderly patient,PRINCE GCS remain low continue mechanical ventilation Cr 4 range with K 5.7 no tolerating tube feeds-starting on reglan overall poor prognosis due to age,multiple comorbidities,PRINCE,severe TBI- had long discussion with family about plan of care they would like to start HD now-and will consider DNR and possible withdrawal of care in next 3-4 days (Rebeca Vines MD) Problem Qualifiers (1) Congestive heart failure: Qualified Codes: I50.9 - Heart failure, unspecified (2) Anemia: Qualified Codes: D64.9 - Anemia, unspecified (3) Respiratory failure: Qualified Codes: J96.00 - Acute respiratory failure, unspecified whether with hypoxia or hypercapnia (4) Dyspnea: Qualified Codes: R06.00 - Dyspnea, unspecified (5) Traumatic brain injury: Petrona Lopez Aug 05, 2017 14:28 Rebeca Vines MD Aug 05, 2017 16:51
--- NOTE | 2017-08-05 16:21 | HHI.HCPN ---
Reason for visit a. To assist with evaluation and management of symptoms including: pain, dyspnea, encephalopathy b. To assist medical decision maker(s) with: better understanding of current medical conditions; weighing benefits/burdens of medical treatment options; making medical treatment decisions. . Subjective/Interval History Follow-up for symptom management and clarification of medical treatment goals. Patient seen this morning in the [facility], room 1314. PTD: 6. Patient remains intubated on mechanical ventilation; FiO2 70%, PEEP 10. He remains hypertensive , systolic pressure in the 160s-180s on Cardene drip. Clonidine patch was increased and Norvasc was added. Chest x-ray on 08/04/2017 showing bibasilar opacities most likely representing pleural effusions with associated atelectasis and/or airspace consolidation. Follow-up chest x-ray this morning showed no interval change. Patient remains minimally on responsive during sedation vacation; propofol and fentanyl are on hold. Does not arouse to verbal stimuli. Withdraws lower extremities teased to noxious stimuli, upper extremities remained flaccid. Follow-up CT brain on 08/04/17 revealed stable intracranial findings including bilateral subdural hematomas, intraventricular blood products and bilateral temporal lobe hemorrhagic contusions. No midline shift or herniation. Ventricle size stable. Patient's urine output has decreased and his azotemia has worsened since yesterday, developing acidosis and now hyperkalemia. discussed dialysis procedure the patient's , son and 1 of the 2 daughters and the risks versus benefits were explained. Family mutually agrees that they want to proceed with dialytic support. Plan for Vas-Cath placement and initiation of HD today. Critical care, Dr. Vines, also spoke to the patient to discuss patient's poor prognosis for meaningful neurological recovery. Palliative care spoke to patient 's and son following this meeting, at that time the patient's son (Darryn) indicated the entire family is in agreement and plan to provide ongoing support , including trach and PEG placement if indicated, to allow the patient time to heal. Darryn did not specify a time frame, but states if the patient does not improve they will stop everything down the road because he would not want to live long-term on artificial life support. Nurse and Dr. Mcqueen were mad e aware of the family's medical treatment goals. . Family/friend interactions See interval history . Advance Directives Advance Directive Specifics Documented care wishes: Patient reportedly has completed written advanced directives. Son, Darryn, will bring copies of documentation to the hospital tomorrow 08/04/2017 so that copies can be placed in the patient's chart and scanned into the EMR. . Significant change in goals: Family wishes to provide ongoing support including hemodialysis, trach and PEG tube placement to allow the patient time to improve. Patient's son did not specify a time frame, but stated if the patient did not improve they would stop everything down the road because the patient would not want to remain on artificial life support long-term. . Objective Vital Signs Date Time Temp Pulse Resp B/P (MAP) Pulse Ox O2 Delivery O2 Flow Rate FiO2 08/05/17 14:30 68 154/63 08/05/17 14:00 70 08/05/17 13:02 99 70 08/05/17 12:45 67 150/67 08/05/17 12:00 60 08/05/17 12:00 69 08/05/17 12:00 99.1 67 13 150/67 (94) 99 08/05/17 10:45 74 161/69 08/05/17 10:00 74 08/05/17 08:34 69 159/66 08/05/17 08:00 67 08/05/17 08:00 97.2 68 17 182/76 (111) 96 08/05/17 08:00 60 08/05/17 07:33 96 60 08/05/17 06:08 62 144/61 08/05/17 06:00 63 08/05/17 04:28 96 50 08/05/17 04:00 50 08/05/17 04:00 98.2 70 16 142/65 (90) 96 08/05/17 04:00 70 08/05/17 03:47 72 142/63 08/05/17 02:00 70 08/05/17 01:49 71 150/67 08/05/17 00:01 67 145/63 08/05/17 00:00 50 08/05/17 00:00 66 08/05/17 00:00 97.5 66 17 146/65 (92) 97 08/04/17 23:56 97 50 08/04/17 22:15 72 158/70 08/04/17 22:00 64 08/04/17 20:45 74 161/72 08/04/17 20:38 96 50 08/04/17 20:00 76 08/04/17 20:00 98.1 76 22 165/71 (102) 96 08/04/17 20:00 50 08/04/17 18:52 82 162/70 08/04/17 18:00 85 08/04/17 17:12 71 163/70 08/04/17 16:16 99 50 08/04/17 16:00 67 08/04/17 16:00 97.2 76 20 174/75 (108) 96 08/04/17 16:00 50 Intake & Output 08/05/17 08/05/17 07:00 19:00 Intake Total 2255 ml Output Total 850 ml Balance 1405 ml IV Total 2255 ml Output Urine Total 600 ml Gastric Drainage Total 250 ml # Bowel Movements 0 . Physical Exam CONSTITUTIONAL/GENERAL: This is an adequately nourished elderly, male patient currently intubated on mechanical ventilation TUBES/LINES/DRAINS: PIV 3, Dockery catheter, ETT, OGT SKIN: No jaundice, rashes, or lesions. Ecchymoses on upper extremities. Skin temperature appropriate. Not diaphoretic. HEAD: Atraumatic. Normocephalic. EYES: Pupils equal and round and sluggish. No scleral icterus. No injection or drainage. Fundi not examined. ENT: Unable to assess hearing given current clinical condition. Nose without bleeding or purulent drainage. NECK: Trachea midline. Supple, nontender. No palpable thyroid enlargement or nodularity. CARDIOVASCULAR: Irregularly irregular without murmurs, gallops, or rubs. No JVD. Peripheral pulses symmetric. Generalized edema RESPIRATORY/CHEST: Intubated on mechanical ventilation. Increased upper airway secretions GASTROINTESTINAL: Abdomen soft, non-tender, nondistended. Bowel sounds present. GENITOURINARY: Without palpable bladder distension. Dockery catheter in place with minimal urine output MUSCULOSKELETAL: Extremities without clubbing or cyanosis. LYMPHATICS: No palpable cervical or supraclavicular adenopathy. NEUROLOGICAL: Minimally responsive during sedation vacation. Does not arouse to verbal stimuli. Withdraws lower extremities to noxious stimuli but upper extremities remain flaccid. PSYCHIATRIC: Unable to assess given clinical condition. . Diagnostic Tests Laboratory Laboratory Tests Test 08/03/17 03:57 08/03/17 03:58 08/03/17 20:03 08/04/17 02:46 Blood Gas Puncture Site RT RADIAL Blood Gas Patient Temperature 98.6 Blood Gas HCO3 16 mmol/L (22-26) Blood Gas Base Excess -8.7 mmol/L (-2-2) Blood Gas Oxygen Saturation 98 % (90-100) Arterial Blood pH 7.33 (7.380-7.420) Arterial Blood Partial Pressure CO2 32 mmHg (38-42) Arterial Blood Partial Pressure O2 210 mmHg (61-120) Arterial Blood Oxygen Content 11.3 Vol % (12.0-20.0) Arterial Blood Carboxyhemoglobin 0.9 % (0-4) Arterial Blood Methemoglobin 0.9 % (0-2) Blood Gas Hemoglobin 7.8 G/DL (12.0-16.0) Oxygen Delivery Device VENTILATOR Blood Gas Ventilator Setting [facility] Blood Gas Inspired Oxygen 75 % White Blood Count 7.6 TH/MM3 (4.0-11.0) 9.7 TH/MM3 (4.0-11.0) Red Blood Count 2.48 MIL/MM3 (4.50-5.90) 3.04 MIL/MM3 (4.50-5.90) Hemoglobin 7.2 GM/DL (13.0-17.0) 8.9 GM/DL (13.0-17.0) Hematocrit 21.8 % (39.0-51.0) 25.9 % (39.0-51.0) Mean Corpuscular Volume 87.8 FL (80.0-100.0) 85.2 FL (80.0-100.0) Mean Corpuscular Hemoglobin 29.1 PG (27.0-34.0) 29.2 PG (27.0-34.0) Mean Corpuscular Hemoglobin Concent 33.2 % (32.0-36.0) 34.3 % (32.0-36.0) Red Cell Distribution Width 26.3 % (11.6-17.2) 24.9 % (11.6-17.2) Platelet Count 108 TH/MM3 (150-450) 112 TH/MM3 (150-450) Mean Platelet Volume 10.2 FL (7.0-11.0) 10.3 FL (7.0-11.0) Neutrophils (%) (Auto) 78.0 % (16.0-70.0) 83.6 % (16.0-70.0) Lymphocytes (%) (Auto) 7.2 % (9.0-44.0) 4.4 % (9.0-44.0) Monocytes (%) (Auto) 13.6 % (0.0-8.0) 10.8 % (0.0-8.0) Eosinophils (%) (Auto) 1.0 % (0.0-4.0) 1.0 % (0.0-4.0) Basophils (%) (Auto) 0.2 % (0.0-2.0) 0.2 % (0.0-2.0) Neutrophils # (Auto) 6.0 TH/MM3 (1.8-7.7) 8.1 TH/MM3 (1.8-7.7) Lymphocytes # (Auto) 0.6 TH/MM3 (1.0-4.8) 0.4 TH/MM3 (1.0-4.8) Monocytes # (Auto) 1.0 TH/MM3 (0-0.9) 1.0 TH/MM3 (0-0.9) Eosinophils # (Auto) 0.1 TH/MM3 (0-0.4) 0.1 TH/MM3 (0-0.4) Basophils # (Auto) 0.0 TH/MM3 (0-0.2) 0.0 TH/MM3 (0-0.2) CBC Comment AUTO DIFF DIFF FINAL Differential Comment AUTO DIFF CONFIRMED Platelet Estimate LOW (NORMAL) Platelet Morphology Comment NORMAL (NORMAL) Ovalocytes 1+ (NORMAL) Acanthocytes 1+ (NORMAL) Keratocytes OCC (NORMAL) Blood Urea Nitrogen 58 MG/DL (7-18) 63 MG/DL (7-18) Creatinine 3.62 MG/DL (0.60-1.30) 3.93 MG/DL (0.60-1.30) Random Glucose 110 MG/DL (74-106) 128 MG/DL (74-106) Total Protein 5.3 GM/DL (6.4-8.2) 5.7 GM/DL (6.4-8.2) Albumin 2.3 GM/DL (3.4-5.0) 2.2 GM/DL (3.4-5.0) Calcium Level 7.5 MG/DL (8.5-10.1) 7.9 MG/DL (8.5-10.1) Alkaline Phosphatase 128 U/L (45-117) 128 U/L (45-117) Aspartate Amino Transf (AST/SGOT) 18 U/L (15-37) 16 U/L (15-37) Alanine Aminotransferase (ALT/SGPT) 11 U/L (12-78) 8 U/L (12-78) Total Bilirubin 0.7 MG/DL (0.2-1.0) 1.3 MG/DL (0.2-1.0) Sodium Level 147 MEQ/L (136-145) 148 MEQ/L (136-145) Potassium Level 4.1 MEQ/L (3.5-5.1) 4.1 MEQ/L (3.5-5.1) Chloride Level 116 MEQ/L (98-107) 117 MEQ/L (98-107) Carbon Dioxide Level 16.9 MEQ/L (21.0-32.0) 16.0 MEQ/L (21.0-32.0) Anion Gap 14 MEQ/L (5-15) 15 MEQ/L (5-15) Estimat Glomerular Filtration Rate 16 ML/MIN (>89) 15 ML/MIN (>89) Prothrombin Time 10.2 SEC (9.8-11.6) Prothromb Time International Ratio 1.0 RATIO Activated Partial Thromboplast Time 28.0 SEC (24.3-30.1) Hepatitis B Surface Antigen NEGATIVE (NEGATIVE) Phosphorus Level 7.4 MG/DL (2.5-4.9) Test 08/04/17 06:30 08/05/17 03:21 08/05/17 03:50 Blood Gas Puncture Site RT RADIAL RT RADIAL Blood Gas Patient Temperature 98.6 98.6 Blood Gas HCO3 14 mmol/L (22-26) 12 mmol/L (22-26) Blood Gas Base Excess -11.6 mmol/L (-2-2) -12.9 mmol/L (-2-2) Blood Gas Oxygen Saturation 95 % (90-100) 95 % (90-100) Arterial Blood pH 7.31 (7.380-7.420) 7.31 (7.380-7.420) Arterial Blood Partial Pressure CO2 28 mmHg (38-42) 25 mmHg (38-42) Arterial Blood Partial Pressure O2 97 mmHg (61-120) 97 mmHg (61-120) Arterial Blood Oxygen Content 12.4 Vol % (12.0-20.0) 12.4 Vol % (12.0-20.0) Arterial Blood Carboxyhemoglobin 1.2 % (0-4) 1.0 % (0-4) Arterial Blood Methemoglobin 1.1 % (0-2) 1.0 % (0-2) Blood Gas Hemoglobin 9.2 G/DL (12.0-16.0) 9.2 G/DL (12.0-16.0) Oxygen Delivery Device VENTILATOR VENT Blood Gas Ventilator Setting PRVC/AC SEE COMMENTS Blood Gas Inspired Oxygen 50 % 50 % White Blood Count 12.2 TH/MM3 (4.0-11.0) Red Blood Count 3.15 MIL/MM3 (4.50-5.90) Hemoglobin 9.2 GM/DL (13.0-17.0) Hematocrit 27.3 % (39.0-51.0) Mean Corpuscular Volume 86.5 FL (80.0-100.0) Mean Corpuscular Hemoglobin 29.2 PG (27.0-34.0) Mean Corpuscular Hemoglobin Concent 33.7 % (32.0-36.0) Red Cell Distribution Width 25.4 % (11.6-17.2) Platelet Count 131 TH/MM3 (150-450) Mean Platelet Volume 10.5 FL (7.0-11.0) Neutrophils (%) (Auto) 81.6 % (16.0-70.0) Lymphocytes (%) (Auto) 4.8 % (9.0-44.0) Monocytes (%) (Auto) 12.2 % (0.0-8.0) Eosinophils (%) (Auto) 1.0 % (0.0-4.0) Basophils (%) (Auto) 0.4 % (0.0-2.0) Neutrophils # (Auto) 10.0 TH/MM3 (1.8-7.7) Lymphocytes # (Auto) 0.6 TH/MM3 (1.0-4.8) Monocytes # (Auto) 1.5 TH/MM3 (0-0.9) Eosinophils # (Auto) 0.1 TH/MM3 (0-0.4) Basophils # (Auto) 0.0 TH/MM3 (0-0.2) CBC Comment AUTO DIFF Differential Total Cells Counted 100 Neutrophils % (Manual) 88 % (16-70) Band Neutrophils % 3 % (0-6) Lymphocytes % 3 % (9-44) Monocytes % 6 % (0-8) Neutrophils # (Manual) 11.1 TH/MM3 (1.8-7.7) Differential Comment FINAL DIFF MANUAL Dohle Bodies PRESENT (NONE SEEN) Platelet Estimate LOW (NORMAL) Platelet Morphology Comment NORMAL (NORMAL) Ovalocytes 2+ (NORMAL) Navarro Cells 1+ (NORMAL) Acanthocytes 1+ (NORMAL) Hematology Comments Blood Urea Nitrogen 78 MG/DL (7-18) Creatinine 4.28 MG/DL (0.60-1.30) Random Glucose 121 MG/DL (74-106) Total Protein 5.9 GM/DL (6.4-8.2) Albumin 2.3 GM/DL (3.4-5.0) Calcium Level 7.7 MG/DL (8.5-10.1) Alkaline Phosphatase 121 U/L (45-117) Aspartate Amino Transf (AST/SGOT) 35 U/L (15-37) Alanine Aminotransferase (ALT/SGPT) 9 U/L (12-78) Total Bilirubin 0.8 MG/DL (0.2-1.0) Sodium Level 148 MEQ/L (136-145) Potassium Level 5.7 MEQ/L (3.5-5.1) Chloride Level 117 MEQ/L (98-107) Carbon Dioxide Level 13.7 MEQ/L (21.0-32.0) Anion Gap 17 MEQ/L (5-15) Estimat Glomerular Filtration Rate 13 ML/MIN (>89) . Result Diagram: 08/05/17 0321 08/05/17320 Imaging Last 72 hours Impressions Chest X-Ray 08/05/17599 Signed Impressions: Service Date/Time: Saturday, August 05, 2017 02:48 - CONCLUSION: No significant change. Ra Ballard MD Chest X-Ray 08/04/17599 Signed Impressions: Service Date/Time: July 05:33 - CONCLUSION: Stable chest x-ray with bibasilar opacities most likely representing pleural effusions with associated atelectasis and/or airspace consolidation. Ra Pulliam MD Head CT 08/04/17 0000 Signed Impressions: Service Date/Time: July 04:37 - CONCLUSION: 1. Stable intracranial findings including bilateral subdural hematomas, intraventricular blood products, and bilateral temporal lobe hemorrhagic contusions. There is no midline shift or herniation. Ventricles are stable in size. 2. There is new fluid in the mastoid air cells and small air fluid levels bilaterally in the maxillary antra. These changes may be related to intubation. Ra Pulliam MD Chest X-Ray 08/03/17 0600 Signed Impressions: Service Date/Time: Thursday, August 03, 2017 04:54 - CONCLUSION: Stable chest x-ray with bibasilar opacities representing either atelectasis, consolidation, and/or pleural effusion. Overall, stable examination. Ra Pulliam MD . Procedures 07/30/2017: Intubation 07/30/2017: ICP monitor placed . Assessment and Plan Disease Oriented Problem List: (1) Congestive heart failure (2) Anemia (3) Acute kidney insufficiency (4) Respiratory failure (5) Hypertensive emergency (6) Intracranial bleed (7) Edema due to congestive heart failure (8) Major neurocognitive disorder as late effect of traumatic brain injury without behavioral disturbance Symptom Scale: (1) Pain (2) Encephalopathy (3) Dyspnea Pertinent Non-Medical Issues Psychosocial: Patient is originally from [place]. He dated his (Kristin ) in high school, and they have now been for approximately 62 years. 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 Together they have 4 adult children, 10 grandchildren and 5 great-grandchildren. Spiritual: Rastafarian thanh Legal: Unclear. Per [place] statutes, in the absence of written advance directives healthcare proxy decision making would fall to the patient's . Patient also has 4 adult children. Danielle and Darryn who live locally have verbally indicated that Danielle is the healthcare surrogate decision maker. Awaiting copies of documentation which should be received tomorrow 08/03/17 Ethical issues impacting care: No known ethical issues impacting care. . Important Contacts Kristin Alonzo, : [phone] Danielle Lucille, daughter: [phone] Darryn Alonzo, son: [phone] . Prognosis Patient is an 82-year-old male who has suffered severe brain trauma which is complicated by multiple comorbid conditions. Prognosis is very poor, and the patient may not survive this hospitalization. . Code Status: Full Code Plan * FULL CODE * Decision making: Unclear. Per [place] statutes, in the absence of written advance directives healthcare proxy decision making would fall to the patient's . However patient's appears to have some mild cognitive deficit and does not appear to be capacitated to make medical decisions for her at this time. Patient also has 4 adult children. Danielle and Darryn who live locally have verbally indicated that Danielle is the healthcare surrogate decision maker, requested copies of written advance directives again today on 08/05/2017. * Patient's urine output has decreased and his azotemia has worsened since yesterday, developing acidosis and now hyperkalemia. discussed dialysis procedure the patient's , son and 1 of the 2 daughters and the risks versus benefits were explained. Family mutually agrees that they want to proceed with dialytic support. Plan for Vas-Cath placement and initiation of HD today. * Critical care, Dr. Vines, also spoke to the patient to discuss patient's poor prognosis for meaningful neurological recovery. Palliative care spoke to patient's and son following this meeting, at that time the patient's son ( Darryn) indicated the entire family is in agreement and plan to provide ongoing support, including trach and PEG placement if indicated, to allow the patient time to heal. Darryn did not specify a time frame, but states if the patient does not improve they will stop everything down the road because he would not want to live long-term on artificial life support. Nurse and Dr. Mcqueen were made aware of the family's medical treatment goals. * Symptom management: = Encephalopathy: Patient remains encephalopathic status post subdural and subarachnoid hemorrhages. Remains minimally responsive during sedation vacation. Patient withdraws lower extremities to noxious stimuli, upper extremities remain flaccid. Follow-up CT brain on 08/04/17 revealed stable intracranial findings including bilateral subdural hematomas, intraventricular blood products and bilateral temporal lobe hemorrhagic contusions. No midline shift or herniation. Ventricle size stable. Critical care stating patient's prognosis is very poor with minimal likelihood of any meaningful neurological recovery. = Dyspnea: Patient remains intubated on mechanical ventilation. FiO2 70%; PEEP 10. Chest x-ray on 08/04/2017 showing bibasilar opacities most likely representing pleural effusions with associated atelectasis and/or airspace consolidation. Follow-up chest x-ray this morning showed no interval change. Patient will need tracheostomy if goals remain aggressive. * Palliative care will follow this patient throughout his hospitalization to establish trust, assist with symptom management and clarification of medical treatment goals . Attestation To help prompt me to consider important information that might be impacting today's encounter and assessment, information from prior notes written by myself or my colleagues may have been "brought forward" into today's note. My signature on this note, however, is an attestation that I personally performed the exam, history, and/or decision-making noted today, and, unless otherwise indicated, the interactions with patient, family, and staff as well as the review of records all occurred today. I also attest that the listed assessment and stated plan reflect my best clinical judgment today based on the combination of historical information, prior notes, and today's exam/ interactions. When time spent is documented, it refers only to time spent today by the signer, or if indicated, combined time spent today by collaborating physician/nurse practitioner. . Elyssa Ricardo Aug 05, 2017 16:21
--- NOTE | 2017-08-05 16:56 | PD.PROCEDR ---
Procedure Note Procedure Preop diagnosis: TBI, acute renal failure, acute respiratory failure on mechanical ventilation Postop diagnosis: Same Informed consent: Obtained from family and documented on chart Anesthesia: 1% lidocaine for local infiltration anesthesia Procedure: Dialysis catheter placement Site: Right internal jugular vein Ultrasound guidance : Yes After sterile prepping and draping using 1% lidocaine for local infiltration anesthesia, right internal jugular vein was visualized using an ultrasound was finder and under direct visualization was cannulated using an introducer needle with dark nonpulsatile blood return. A Guidewire was passed through the introducer needle without any resistance and the needle was then removed. After making a skin chau and dilation of tract, a 20 cm dual lumen dialysis catheter was passed over the guidewire by modified seldinger's technique into the right internal jugular vein up to the 19 cm umang and the guidewire was then removed. Good blood return obtained through both ports which were then flushed with saline and subsequently hep-locked. After suturing the catheter in place, a Bio- occlusive dressing with biopatch was applied to the site. Post procedure chest x -ray was ordered and reviewed with good placement of right IJ dialysis catheter with tip overlying the right atrium, no pneumothorax on postprocedure film. Patient tolerated the procedure well with no immediate complications noted. Zi Mcqueen MD Aug 05, 2017 16:56
[2017-08-05] MEDS ORDERED: HEPARIN SODIUM - IV 10,000 UNITS/10 ML VIAL IV PUSH ONE (17:00)
--- NOTE | 2017-08-05 17:01 | HHI.CCPN ---
Subjective Remarks/Hospital Course 82 y/o man fell from height and sustained closed head trauma including left subdural hematoma and bilateral temporal parenchymal bleeds in areas of contusion. Admission CXR is impressive for pulmonary venous congestion. Home meds are not known at this time. 07/31: Enlarging left subdural hemorrhage and enlarging parenchymal contusions/ bleeds undoubtedly exacerbated by Plavix and aspirin use. CXR demonstrates bilateral effusions but improved pulmonary venous congestion after diuretic yesterday. Unfortunately a worsening azotemia has developed indicating he may not tolerate diuresis well. Follow renal function closely. I would have predicted chronic systolic heart failure after observing his effusions and ankles but his cardiac ECHO reveals reasonable biventricular function, probably EF > 50%. This may all be primary renal disease considering his reduced GFR and chronic anemia. 08/01: Remains sedated, orally intubated on mechanical ventilation 08/05: Remains sedated, orally intubated on mechanical ventilation. Renal function continued to decline of the last few days. Family wishes to proceed with hemodialysis after discussion with trauma team and nephrology. Objective Vital Signs Date Time Temp Pulse Resp B/P (MAP) Pulse Ox O2 Delivery O2 Flow Rate FiO2 08/05/17 14:30 68 154/63 08/05/17 13:02 99 70 08/05/17 12:00 99.1 13 Intake and Output 08/05/17 08/05/17 08/06/17 08:00 16:00 00:00 Intake Total 1200 ml Output Total 850 ml Balance 350 ml Result Diagram: 08/05/17 0321 08/05/17 0321 Other Results Laboratory Tests Test 08/05/17 03:50 Blood Gas Puncture Site RT RADIAL Blood Gas Patient Temperature 98.6 Blood Gas HCO3 12 mmol/L (22-26) Blood Gas Base Excess -12.9 mmol/L (-2-2) Blood Gas Oxygen Saturation 95 % (90-100) Arterial Blood pH 7.31 (7.380-7.420) Arterial Blood Partial Pressure CO2 25 mmHg (38-42) Arterial Blood Partial Pressure O2 97 mmHg (61-120) Arterial Blood Oxygen Content 12.4 Vol % (12.0-20.0) Arterial Blood Carboxyhemoglobin 1.0 % (0-4) Arterial Blood Methemoglobin 1.0 % (0-2) Blood Gas Hemoglobin 9.2 G/DL (12.0-16.0) Oxygen Delivery Device VENT Blood Gas Ventilator Setting SEE COMMENTS Blood Gas Inspired Oxygen 50 % Imaging CXR: Hi effusion, PVC. Objective Remarks GENERAL: Intubated and sedated SKIN: Warm/dry. HEAD: Atraumatic. Normocephalic. EYES: Pupils unequal, right pupil 2 mm left pupil 3 mm reactive to light. Subconjunctival hemorrhage on the right side. No scleral icterus. No injection or drainage. ENT: No nasal bleeding or discharge. Mucous membranes pink and moist. NECK: Trachea midline. No JVD. CARDIOVASCULAR: Regular rate and rhythm. RESPIRATORY: Clear to auscultation. Breath sounds equal bilaterally. GASTROINTESTINAL: Abdomen soft, non-tender, nondistended. MUSCULOSKELETAL: No obvious deformities. No clubbing. No cyanosis. No edema. NEUROLOGICAL: Sedated, orally intubated on mechanical ventilation. PSYCHIATRIC: Unable to assess. A/P Assessment and Plan Admitted to trauma ICU for traumatic brain injury following a fall from height Encephalopathy TBI Left subdural hematoma/subarachnoid hemorrhage/right frontal contusion Acute respiratory failure on mechanical ventilation Chronic anemia with drop in hemoglobin Decompensated CHF Acute renal failure Hyperkalemia Metabolic acidosis - Serial neuro exams - Continue sedation, daily sedation vacation - Neurosurgery consulted and following - Transfused 2 units platelets for dysfunction secondary to Plavix. Transfuse 2 units PRBCs on 07/31 for drop in hemoglobin. -Continue mechanical ventilation, vent bundle. - Continue beta stacie, statin, clonidine, Lasix. 2-D echo with normal LV EF. -strict intake output, monitor and replete electro lites, follow BUN creatinine - Being started on hemodialysis on 08/05 following discussions with family and trauma team as well as nephrology. - Continue tube feeds GI prophylaxiis with Pepcid, DVT prophylaxis with SCDs. No subcutaneous heparin till cleared by neurosurgery. Being followed by trauma team Patient remains critically ill with traumatic brain injury and respiratory failure, renal failure Discussed with trauma team, discussed with Dr. Chavez from nephrology. Placed a right IJ Vas-Cath 08/05 Time spent on critical care excluding procedures 40 minutes Zi Mcqueen MD Aug 05, 2017 17:01
--- NOTE | 2017-08-05 17:03 | RADRPT ---
EXAM DATE/TIME: 08/05/2017 16:45 [facility] COMPARISON: CHEST SINGLE AP, August 05, 2017, 2:48. INDICATIONS : Post central line placement. MEDICAL HISTORY : Hypertension. Congestive heart failure. Hypercholesterolemia. Diabetes. SURGICAL HISTORY : None. ENCOUNTER: Initial ACUITY: 1 day PAIN SCORE: Non-responsive. LOCATION: Bilateral chest FINDINGS: A single portable frontal view the chest shows interval placement of a right internal jugular vein di alysis catheter. No pneumothorax. Tip of the endotracheal tube 2 cm from the lorenzo. Nasogastric tube courses off the inferior margin of the film. Bilateral pleural effusions, bibasilar infiltrates, and cardiomegaly are unchanged. CONCLUSION: No pneumothorax following catheter placement. Unchanged exam. Pepe Segura Jr., MD on August 05, 2017 at 16:59 Board Certified Radiologist. This report was verified electronically.
[2017-08-05] MEDS: ALBUMIN 25% INJ 100 ML IV PRN (17:10)
[2017-08-05] MEDS: HEPARIN SODIUM - IV 10,000 UNITS/10 ML VIAL PRN ×2 (17:27→20:08)
[2017-08-05] MEDS: GENTAMICIN SULFATE 20 MG/2 ML VIAL OTHER PRN ×2 (17:27→20:08)
[2017-08-05 18:07] LABS: BICARBONATE 18.5 MEQ/L (21.0-32.0); CALCIUM 7.7 MG/DL (8.5-10.1); CREATININE 4.33 MG/DL (0.60-1.30)
[2017-08-05] MEDS: TERAZOSIN HCL 5 MG CAP PO SCH (20:12)
[2017-08-05] MEDS: hydrALAZINE HCL 20 MG/ML VIAL IV PUSH PRN (20:13)
--- NOTE | 2017-08-05 22:35 | PD.CARD.PN ---
Subjective Subjective Remarks Patient was seen earlier this afternoon, late entry note No events overnight No arrhythmias noted Objective Medications Current Medications Medications (Trade) Dose Ordered Sig/Juliet Route Start Time Stop Time Status Last Admin (NS Flush) 2 ml UNSCH PRN IV FLUSH 07/30/17 12:45 08/03/17 09:43 (Zofran Inj) 4 mg Q6H PRN IV PUSH 07/30/17 12:45 Miscellaneous Information 1 Q361D XX 07/30/17 12:45 (Chlorhexidine 2% Cloth) Taper DAILY@04 TOP 07/31/17 04:00 07/27/18 03:59 08/05/17 03:26 (Chlorhexidine 2% Cloth) 3 pack UNSCH PRN TOP 07/30/17 12:45 (Peridex 0.12% Liq) 15 ml BID@08,20 MT 07/30/17 20:00 08/05/17 20:14 Fentanyl Citrate 250 ml @ 5 mls/hr TITRATE PRN IV 07/30/17 13:30 08/05/17 22:20 Propofol 100 ml @ 2.64 mls/hr TITRATE PRN IV 07/30/17 13:30 08/05/17 06:56 (Pepcid) 10 mg BID PO 07/30/17 21:00 08/05/17 20:12 Nicardipine HCl 25 mg/Sodium Chloride 250 ml @ 50 mls/hr TITRATE PRN IV 07/30/17 16:15 08/05/17 22:23 (Pravachol) 40 mg DAILY PO 07/31/17 09:00 08/05/17 08:02 (D50w (Vial) Inj) 50 ml UNSCH PRN IV PUSH 07/31/17 07:45 (Glucagon Inj) 1 mg UNSCH PRN OTHER 07/31/17 07:45 (Hytrin) 10 mg HS PO 07/31/17 21:00 08/05/17 20:12 (Apresoline) 100 mg Q12HR PO 07/31/17 09:00 08/05/17 20:13 Levetriacetam 500 mg/Sodium Chloride 105 ml @ 420 mls/hr Q12HR IV 08/01/17 10:00 08/05/17 20:13 (Jackelyn-Colace) 1 tab BID PO 08/01/17 21:00 08/05/17 20:12 (Lactulose Liq) 30 ml DAILY PO 08/01/17 16:15 08/05/17 08:02 (Dulcolax Supp) 10 mg DAILY PRN RECTAL 08/01/17 16:15 (NovoLOG SUPPLEMENTAL SCALE) 1 Q6HR SQ 08/01/17 18:00 (Diuril Inj) 500 mg Q12H IV 08/03/17 01:00 08/05/17 12:53 (Duoneb Neb) 1 ampule Q6HR NEB NEB 08/02/17 22:00 08/05/17 20:44 (Lopressor Inj) 5 mg Q6H IV PUSH 08/04/17 10:00 08/05/17 09:16 (Apresoline Inj) 10 mg Q4HR PRN IV PUSH 08/04/17 12:30 08/05/17 20:13 (Lasix Inj) 80 mg Q8HR IV PUSH 08/04/17 22:00 08/05/17 21:01 (Milk Of Magnesia Liq) 30 ml BID PO 08/05/17 09:00 08/05/17 20:12 (Catapres-Tts 0.3 Mg Patch.7d) 1 patch Q7D T-DERMAL 08/05/17 11:00 08/05/17 11:49 (Reglan Inj) 5 mg Q8HR IV PUSH 08/05/17 14:00 08/05/17 21:00 (Norvasc) 5 mg DAILY PO 08/05/17 09:15 08/05/17 09:18 (Heparin Inj) 5,000 units Q8HR SQ 08/05/17 14:00 08/05/17 21:01 Miscellaneous Information 1 Q7D T-DERMAL 08/12/17 11:00 Sodium Chloride 1,000 ml @ 0 mls/hr Q0M PRN OTHER 08/05/17 13:51 Sodium Chloride 1,000 ml @ 200 mls/hr Q5H PRN IV 08/05/17 13:51 Sodium Chloride 1,000 ml @ 0 mls/hr Q0M PRN OTHER 08/05/17 13:51 Albumin Human 100 ml @ 60 mls/hr UNSCH PRN IV 08/05/17 14:00 08/05/17 17:10 (NS Flush) 5 ml UNSCH PRN IV FLUSH 08/05/17 14:00 (Heparin Inj) UNSCH PRN .XX 08/05/17 14:00 08/05/17 20:08 (Gentamicin Inj) 20 mg UNSCH PRN OTHER 08/05/17 14:00 08/05/17 20:08 (Zofran Inj) 4 mg UNSCH PRN IV PUSH 08/05/17 14:00 (Tylenol) 650 mg UNSCH PRN PO 08/05/17 14:00 (Benadryl) 25 mg UNSCH PRN PO 08/05/17 14:00 (Nitrostat Sl) 0.4 mg UNSCH PRN SL 08/05/17 14:00 (Catapres) 0.1 mg UNSCH PRN PO 08/05/17 14:00 (Gelfoam 12 Mm/7 Mm Top) 1 foam UNSCH PRN TOP 08/05/17 14:00 Vital Signs / I&O Vital Signs Date Time Temp Pulse Resp B/P (MAP) Pulse Ox O2 Delivery O2 Flow Rate FiO2 08/05/17 22:23 63 180/68 08/05/17 20:40 100 50 08/05/17 20:15 63 185/78 08/05/17 20:00 70 08/05/17 20:00 99.1 65 12 185/74 (111) 99 08/05/17 20:00 65 08/05/17 18:00 100.0 70 13 136/61 (86) 99 08/05/17 18:00 58 08/05/17 17:29 98 60 08/05/17 17:09 68 131/62 08/05/17 16:00 70 08/05/17 16:00 69 08/05/17 14:30 68 154/63 08/05/17 14:00 70 08/05/17 13:02 99 70 08/05/17 12:45 67 150/67 08/05/17 12:00 60 08/05/17 12:00 69 08/05/17 12:00 99.1 67 13 150/67 (94) 99 08/05/17 10:45 74 161/69 08/05/17 10:00 74 08/05/17 08:34 69 159/66 08/05/17 08:00 67 08/05/17 08:00 97.2 68 17 182/76 (111) 96 08/05/17 08:00 60 08/05/17 07:33 96 60 08/05/17 06:08 62 144/61 08/05/17 06:00 63 08/05/17 04:28 96 50 08/05/17 04:00 50 08/05/17 04:00 98.2 70 16 142/65 (90) 96 08/05/17 04:00 70 08/05/17 03:47 72 142/63 08/05/17 02:00 70 08/05/17 01:49 71 150/67 08/05/17 00:01 67 145/63 08/05/17 00:00 50 08/05/17 00:00 66 08/05/17 00:00 97.5 66 17 146/65 (92) 97 08/04/17 23:56 97 50 I/O 08/04/17 08/04/17 08/04/17 08/05/17 08/05/17 08/05/17 07:00 15:00 23:00 07:00 15:00 23:00 Intake Total 500 ml 725 ml 1550 ml 955 ml Output Total 1125 ml 1100 ml 850 ml 3100 ml Balance -625 ml -375 ml 700 ml -2145 ml Intake Oral 0 ml IV Total 500 ml 705 ml 1550 ml 955 ml Tube Irrigant 20 ml Output Urine Total 725 ml 750 ml 600 ml 100 ml Gastric Drainage Total 400 ml 350 ml 250 ml Hemodialysis 3000 ml # Bowel Movements 0 0 0 0 Physical Exam GENERAL: Intubated and sedated SKIN: Warm and dry. HEAD: Atraumatic. Normocephalic. EYES: Pupils equal and round. No scleral icterus. No injection or drainage. ENT: No nasal bleeding or discharge. Mucous membranes pink and moist. NECK: Trachea midline. No JVD. CARDIOVASCULAR: Regular rate and rhythm. RESPIRATORY: No accessory muscle use. Clear to auscultation. Breath sounds equal bilaterally. GASTROINTESTINAL: Abdomen soft, non-tender, nondistended. Hepatic and splenic margins not palpable. MUSCULOSKELETAL: Extremities without clubbing, cyanosis, or edema. No obvious deformities. NEUROLOGICAL: Unable to determine. ICP monitor in place, pressures 4-13 Laboratory Laboratory Tests Test 08/05/17 03:21 08/05/17 03:50 08/05/17 17:10 White Blood Count 12.2 TH/MM3 Red Blood Count 3.15 MIL/MM3 Hemoglobin 9.2 GM/DL Hematocrit 27.3 % Mean Corpuscular Volume 86.5 FL Mean Corpuscular Hemoglobin 29.2 PG Mean Corpuscular Hemoglobin Concent 33.7 % Red Cell Distribution Width 25.4 % Platelet Count 131 TH/MM3 Mean Platelet Volume 10.5 FL Neutrophils (%) (Auto) 81.6 % Lymphocytes (%) (Auto) 4.8 % Monocytes (%) (Auto) 12.2 % Eosinophils (%) (Auto) 1.0 % Basophils (%) (Auto) 0.4 % Neutrophils # (Auto) 10.0 TH/MM3 Lymphocytes # (Auto) 0.6 TH/MM3 Monocytes # (Auto) 1.5 TH/MM3 Eosinophils # (Auto) 0.1 TH/MM3 Basophils # (Auto) 0.0 TH/MM3 CBC Comment AUTO DIFF Differential Total Cells Counted 100 Neutrophils % (Manual) 88 % Band Neutrophils % 3 % Lymphocytes % 3 % Monocytes % 6 % Neutrophils # (Manual) 11.1 TH/MM3 Differential Comment FINAL DIFF MANUAL Dohle Bodies PRESENT Platelet Estimate LOW Platelet Morphology Comment NORMAL Ovalocytes 2+ Navarro Cells 1+ Acanthocytes 1+ Hematology Comments Blood Urea Nitrogen 78 MG/DL 80 MG/DL Creatinine 4.28 MG/DL 4.33 MG/DL Random Glucose 121 MG/DL 99 MG/DL Total Protein 5.9 GM/DL Albumin 2.3 GM/DL Calcium Level 7.7 MG/DL 7.7 MG/DL Alkaline Phosphatase 121 U/L Aspartate Amino Transf (AST/SGOT) 35 U/L Alanine Aminotransferase (ALT/SGPT) 9 U/L Total Bilirubin 0.8 MG/DL Sodium Level 148 MEQ/L 151 MEQ/L Potassium Level 5.7 MEQ/L 3.5 MEQ/L Chloride Level 117 MEQ/L 119 MEQ/L Carbon Dioxide Level 13.7 MEQ/L 18.5 MEQ/L Anion Gap 17 MEQ/L 14 MEQ/L Estimat Glomerular Filtration Rate 13 ML/MIN 13 ML/MIN Blood Gas Puncture Site RT RADIAL Blood Gas Patient Temperature 98.6 Blood Gas HCO3 12 mmol/L Blood Gas Base Excess -12.9 mmol/L Blood Gas Oxygen Saturation 95 % Arterial Blood pH 7.31 Arterial Blood Partial Pressure CO2 25 mmHg Arterial Blood Partial Pressure O2 97 mmHg Arterial Blood Oxygen Content 12.4 Vol % Arterial Blood Carboxyhemoglobin 1.0 % Arterial Blood Methemoglobin 1.0 % Blood Gas Hemoglobin 9.2 G/DL Oxygen Delivery Device VENT Blood Gas Ventilator Setting SEE COMMENTS Blood Gas Inspired Oxygen 50 % Imaging Last 24 hours Impressions Chest X-Ray 08/05/17 0600 Signed Impressions: Service Date/Time: Saturday, August 05, 2017 02:48 - CONCLUSION: No significant change. Ra Ballard MD Chest X-Ray 08/05/17 0000 Signed Impressions: Service Date/Time: Saturday, August 05, 2017 16:45 - CONCLUSION: No pneumothorax following catheter placement. Unchanged exam. Pepe Segura Jr., MD Assessment and Plan Problem List: (1) Major neurocognitive disorder as late effect of traumatic brain injury without behavioral disturbance ICD Codes: S06.9X9S - Unspecified intracranial injury with loss of consciousness of unspecified duration, sequela; F02.80 - Dementia in other diseases classified elsewhere without behavioral disturbance Status: Acute (2) Intracranial bleed ICD Codes: I62.9 - Nontraumatic intracranial hemorrhage, unspecified Status: Acute (3) Edema due to congestive heart failure ICD Codes: I50.9 - Heart failure, unspecified Status: Chronic (4) Hypertensive emergency ICD Codes: I16.1 - Hypertensive emergency Status: Acute (5) CKD (chronic kidney disease) stage 3, GFR 30-59 ml/min ICD Codes: N18.3 - Chronic kidney disease, stage 3 (moderate) Status: Chronic (6) Acute kidney insufficiency ICD Codes: N28.9 - Disorder of kidney and ureter, unspecified Status: Chronic Assessment and Plan 1) Mechanical fall leading in subdural/subarachnoid hemorrhage 2) Benign PVCs Normal function on echo Electrolytes normal range 3) ASA/Plavix stopped for ICH 4) Blood pressure elevated Currently maxed on Cardene drip Hydralazine PRN 5) Worsening renal function Aman Lind DO Aug 05, 2017 22:35
[2017-08-06] VITALS (18 sets, daily range): BP systolic 149–163; BP diastolic 65–70; PULSE 55–120; RESP 12–19; TEMP 96.8–98.4; O2SAT 93–99
[2017-08-06] MEDS: CHLOROTHIAZIDE SOD 500 MG VIAL IV SCH ×2 (01:34→13:58)
[2017-08-06] MEDS: niCARdipine INJ 50 MG in SODIUM CHLORID 0.9% 500 ML INJ 480 ML IV PRN ×5 (01:57→22:23)
[2017-08-06] MEDS: RESP: ALBUTEROL 2.5 MG/IPRATROPIUM 0.5 MG NEB (SCH) NEB ×4 (03:26→19:56)
[2017-08-06] MEDS: CHLORHEXIDINE GLUCONATE 2 % 1 PACK (2 CLOTHS) TOP SCH (04:00)
[2017-08-06] MEDS: METOPROLOL TARTRATE 5 MG/5 ML VIAL IV PUSH SCH ×4 (04:00→21:29)
[2017-08-06 04:10] LABS: AUTOMATED NEUTROPHIL # 8.3 TH/MM3 (1.8-7.7); BASOPHIL % 0.3 % (0.0-2.0); EOSINOPHIL # 0.2 TH/MM3 (0-0.4); EOSINOPHIL % 1.5 % (0.0-4.0); HEMATOCRIT 25.5 % (39.0-51.0); HEMOGLOBIN 8.6 GM/DL (13.0-17.0); LYMPH % 6.4 % (9.0-44.0); LYMPHOCYTE # 0.7 TH/MM3 (1.0-4.8); MEAN CELL VOLUME 86.3 FL (80.0-100.0); MEAN CORPUSCULAR HGB CONC 33.6 % (32.0-36.0); MEAN PLATELET VOLUME 9.5 FL (7.0-11.0); MONO % 13.5 % (0.0-8.0); MONOCYTE # 1.4 TH/MM3 (0-0.9); NEUT % 78.3 % (16.0-70.0); PLATELET COUNT 99 TH/MM3 (150-450); RED BLOOD COUNT 2.96 MIL/MM3 (4.50-5.90); RED CELL DISTRIBUTION WIDTH 24.1 % (11.6-17.2); WHITE BLOOD COUNT 10.6 TH/MM3 (4.0-11.0)
--- NOTE | 2017-08-06 04:12 | RADRPT ---
EXAM DATE/TIME: 08/06/2017 02:56 [facility] COMPARISON: CHEST SINGLE AP, August 05, 2017, 16:45. INDICATIONS : Follow up trauma, post fall. MEDICAL HISTORY : Hypertension. Congestive heart failure. Hypercholesterolemia. Diabetes. SURGICAL HISTORY : None. ENCOUNTER: Subsequent ACUITY: 1 week PAIN SCORE: Non-responsive. LOCATION: Bilateral chest FINDINGS: Basilar predominant consolidation and small effusions again seen on both sides, not significantly fausto nged on the right and slightly improved on the left in the interim. No pneumothorax. Mild cardiomegaly unchanged. Endotracheal tube tip is approximately 3.5 cm above the lorenzo. There is a nasogastric tube coursing into the stomach. Right internal jugular central venous catheter are aga in seen, tip at the atriocaval junction. CONCLUSION: 1. Slightly improved bibasilar consolidation and small effusions. 2. No change mild cardiomegaly. Ra Ballard MD on August 06, 2017 at 4:09 Board Certified Radiologist. This report was verified electronically.
[2017-08-06 04:42] LABS: BANDS 5 % (0-6); BASOPHILS 1 % (0-2); LYMPHOCYTES 6 % (9-44); MONOCYTES 15 % (0-8); NEUTROPHIL # MANUAL DIFF 8.3 TH/MM3 (1.8-7.7); POLYS (SEG NEUTROPHILS) 73 % (16-70)
[2017-08-06 04:43] LABS: OVALOCYTES 1+ (NORMAL)
[2017-08-06 04:45] LABS: ACANTHOCYTES 1+ (NORMAL)
[2017-08-06 04:50] LABS: ALBUMIN 2.5 GM/DL (3.4-5.0); ALKALINE PHOSPHATASE 114 U/L (45-117); ALT (GPT) 10 U/L (12-78); AST (GOT) 16 U/L (15-37); BICARBONATE 21.5 MEQ/L (21.0-32.0); BLOOD UREA NITROGEN 60 MG/DL (7-18); CALCIUM 7.9 MG/DL (8.5-10.1); CHLORIDE 113 MEQ/L (98-107); CREATININE 3.55 MG/DL (0.60-1.30); GLOMERULAR FILTRATION RATE 17 ML/MIN (>89); GLUCOSE,RANDOM 112 MG/DL (74-106); SODIUM (NA) 147 MEQ/L (136-145); TOTAL PROTEIN 5.6 GM/DL (6.4-8.2)
[2017-08-06] MEDS: INSULIN ASPART SUPPLEMENTAL SCALE SQ SCH ×4 (06:00→17:42)
[2017-08-06] MEDS: FUROSEMIDE 100 MG/10 ML VIAL IV PUSH SCH ×3 (06:13→21:29)
[2017-08-06] MEDS: METOCLOPRAMIDE HCL 10 MG/2 ML VIAL IV PUSH SCH ×3 (06:13→21:29)
[2017-08-06] MEDS: HEPARIN SODIUM - SQ 10,000 UNITS/ML VIAL SQ SCH ×3 (06:13→21:30)
[2017-08-06] MEDS: LACTULOSE SYRUP 20 GM/30 ML CUP PO SCH ×4 (07:56→21:00)
[2017-08-06] MEDS: MAGNESIUM HYDROXIDE SUSP 30 ML CUP PO SCH ×2 (07:56→21:00)
[2017-08-06] MEDS: DOCUSATE SODIUM 50 MG/SENNA 8.6 MG TAB PO SCH ×2 (07:57→21:00)
[2017-08-06] MEDS: levETIRAcetam INJ 500 MG in SODIUM CHLORIDE 0.9% INJ 100 ML IV SCH (07:57)
[2017-08-06] MEDS: CHLORHEXIDINE 0.12% (ORAL KIT) 15 ML CUP MT SCH ×2 (07:57→20:00)
[2017-08-06] MEDS: FAMOTIDINE 20 MG TAB PO SCH ×2 (07:57→21:28)
[2017-08-06] MEDS: PRAVASTATIN SOD 40 MG TAB PO SCH (07:57)
[2017-08-06] MEDS: hydrALAZINE HCL 100 MG TAB PO SCH ×3 (07:58→21:28)
[2017-08-06] MEDS: amLODIPine BESYLATE 5 MG TAB PO SCH (07:58)
--- NOTE | 2017-08-06 09:31 | HHI.CCPN ---
Subjective Remarks/Hospital Course 82 y/o man fell from height and sustained closed head trauma including left subdural hematoma and bilateral temporal parenchymal bleeds in areas of contusion. Admission CXR is impressive for pulmonary venous congestion. Home meds are not known at this time. 07/31: Enlarging left subdural hemorrhage and enlarging parenchymal contusions/ bleeds undoubtedly exacerbated by Plavix and aspirin use. CXR demonstrates bilateral effusions but improved pulmonary venous congestion after diuretic yesterday. Unfortunately a worsening azotemia has developed indicating he may not tolerate diuresis well. Follow renal function closely. I would have predicted chronic systolic heart failure after observing his effusions and ankles but his cardiac ECHO reveals reasonable biventricular function, probably EF > 50%. This may all be primary renal disease considering his reduced GFR and chronic anemia. 08/01: Remains sedated, orally intubated on mechanical ventilation 08/05: Remains sedated, orally intubated on mechanical ventilation. Renal function continued to decline of the last few days. Family wishes to proceed with hemodialysis after discussion with trauma team and nephrology. Subjective 08/06: Afebrile. Bradycardic. No acute cardiovascular incidents overnight. Continues on nicardipine drip at 7.5 mg an hour. Hemodialysis yesterday -3 L Objective Vital Signs Date Time Temp Pulse Resp B/P (MAP) Pulse Ox O2 Delivery O2 Flow Rate FiO2 08/06/17 07:53 96 40 08/06/17 06:00 55 08/06/17 04:00 97.7 12 149/66 (93) Intake and Output 08/06/17 08/06/17 08/07/17 08:00 16:00 00:00 Intake Total 180 ml Output Total 1100 ml Balance -920 ml Result Diagram: 08/06/17 0346 08/06/17 0346 Imaging Last Impressions Chest X-Ray 08/06/17 0600 Signed Impressions: Service Date/Time: Sunday, August 06, 2017 02:56 - CONCLUSION: 1. Slightly improved bibasilar consolidation and small effusions. 2. No change mild cardiomegaly. Ra Ballard MD Head CT 08/04/17 0000 Signed Impressions: Service Date/Time: July 04:37 - CONCLUSION: 1. Stable intracranial findings including bilateral subdural hematomas, intraventricular blood products, and bilateral temporal lobe hemorrhagic contusions. There is no midline shift or herniation. Ventricles are stable in size. 2. There is new fluid in the mastoid air cells and small air fluid levels bilaterally in the maxillary antra. These changes may be related to intubation. Ra Pulliam MD Lower Extremity Ultrasound 08/02/17 0000 Signed Impressions: Service Date/Time: Wednesday, August 02, 2017 10:40 - CONCLUSION: No evidence of DVT. Danyel Bear MD Renal Ultrasound 08/01/17 0000 Signed Impressions: Service Date/Time: Tuesday, August 01, 2017 14:46 - CONCLUSION: There is no hydronephrosis or stone. Bilateral pleural effusions.. Angel Brown MD FACR Shoulder X-Ray 07/31/17 0000 Signed Impressions: Service Date/Time: Monday, July 31, 2017 14:25 - CONCLUSION: No obvious fracture or dislocation. Degenerative changes. Prasanna Milan MD Cervical Spine CT 07/30/17 1202 Signed Impressions: Service Date/Time: Sunday, July 30, 2017 12:17 - CONCLUSION: 1. Negative for fracture. 2. Degenerative changes consisting of uncinate ridging with neural foramen encroachment without radiographically significant spinal stenosis. 3. Bilateral moderate sized pleural effusions seen on the lower slices through the upper lungs lungs. Angel Brown MD FACR Objective Remarks GENERAL: 82-year-old male currently orotracheally intubated SKIN: Warm/dry. Cracked HEAD: Atraumatic. Normocephalic. EYES: Pupils today are equal right pupil 2 mm left pupil 2 mm reactive to light. Subconjunctival hemorrhage on the right side. No scleral icterus. No injection or drainage. ENT: No nasal bleeding or discharge. Mucous membranes pink and moist. NECK: Trachea midline. No JVD. Right IJ hemodialysis catheter is clean dry and intact. CARDIOVASCULAR: Bradycardic, RRR. S1, S2 no S4. Distant. RESPIRATORY: Clear to auscultation. Breath sounds equal bilaterally. GASTROINTESTINAL: Abdomen protuberant. Hypoactive bowel sounds are appreciated. : Arellano catheter in place with yellow dayne urine. Positive scrotal edema MUSCULOSKELETAL: No obvious deformities. Possible lipodermatosclerosis bilateral lower extremities NEUROLOGICAL: Sedated, orally intubated on mechanical ventilation. Urinary Catheter: Yes Assessment to: Continue Arellano insert reason: Prolonged Immobilization Vascular Central Line Catheter: No Assessment to: Continue A/P Assessment and Plan Neuro/Psych: Acute encephalopathy TBI Bilateral subdural hematomas, intraventricular blood products, and bilateral temporal lobe hemorrhagic contusions Essential tremor Currently on fentanyl drip at 200 mcg an hour for sedation while intubated Goal of RA SS -2 Daily sedation vacation when appropriate CT brain admission revealed bilateral subdural hematomas, intraventricular hemorrhage in bilateral temporal contusions. Evaluate by neurosurgery/Dr. Horne Status post removal of ICP 08/05 Currently on levetiracetam 500 mg by tube twice daily seizure prophylaxis Acetaminophen 650 mg p.o. every 6 hours as needed fever Currently holding primidone 50 mg twice daily for ET CV: Chronic diastolic heart failure Mild pulmonary hypertension PVD -stent LAD status post femoropopliteal Currently on nicardipine drip at 7.5 mg an hour to maintain systolic blood pressure less than 150 Continue hydralazine 100 mg every 8 hours, amlodipine 10 mg daily, metoprolol 5 mg IV every 6 hours and terazosin 10 mg daily Continue pravastatin 40 mg daily for dyslipidemia. On simvastatin 20 mg daily home. Holding aspirin 325 daily and clopidogrel 75 daily in light of brain hemorrhage as above 2D echo revealed The left ventricular systolic function is low normal with an estimated ejection fraction in the range of 50- 55%. Mild pulmonary. hypertension 40 mmHg Home medications include terazosin 10 mg daily, Toprol 50 mg twice daily, losartan 25 mg p.o. daily, Aldactone 25 mg daily, Lasix 80 mg twice daily Currently on furosemide 80 mg IV every 6 8 hours and Diuril 500 mg IV every 12 hours. Likely can discontinue while on hemodialysis Resp: Acute respiratory failure [facility] /06/08/39 Ventilator bundle Albuterol/ipratropium aerosols every 6 hours with albuterol aerosols every 2 hours as needed for dyspnea GI: Hypoalbuminemia Constipation Gastroesophageal reflux disease Currently on Glucerna 1.5 and 35 cc an hour/recommendations per pharmacy Currently in famotidine for GI prophylaxis. On omeprazole 20 mg daily at home. Docusate sodium/senna 1 tablet twice daily, lactulose 30 cc every 6 hours, polythene glycol 17 g twice daily for bowel regimen. Add glycerin suppository 1, methylnaltrexone and mineral oil 1 today. Check KUB in a.m. : BPH Holding finasteride 5 mg daily and terazosin 10 mg daily. Resume clinically indicated The arellano catheter has been placed for accurate I's and O's in a critically ill patient with significant scrotal edema Endo: Gout Diabetes mellitus Home medications include glipizide 5 mg twice daily Sliding scale insulin with aspart insulin to maintain euglycemia Resume allopurinol 100 mg daily Renal: Acute kidney injury -3 L with hemodialysis yesterday/Dr. Chavez. Short-term hemodialysis. Heme: Normocytic anemia Thrombocytopenia Monitor CBC daily. Follow trends On iron sulfate 160 mg daily at home ID: Monitor for infection FEN: Hypernatremia Replace electrolytes as clinically indicated MSK: BMI 40 Weight loss encouraged Access: -Right IJ hemodialysis catheter placed 08/05 Prophylaxis -GI -famotidine -DVT -SCD/heparin subcu Level 2 follow-up Daniel Ledbetter MD Aug 06, 2017 09:31
[2017-08-06] MEDS ORDERED: MINERAL OIL EMULSION 55% PO ONE (09:45)
[2017-08-06] MEDS ORDERED: RESP: ALBUTEROL 2.5 MG/3 ML NEB (PRN) NEB (09:45)
[2017-08-06] MEDS ORDERED: GLYCERIN ADULT 2 GM SUPP RECTAL ONE (09:45)
[2017-08-06] MEDS ORDERED: METHYLNALTREXONE BROMIDE 12 MG/0.6 ML VIAL SQ ONE (09:45)
[2017-08-06] MEDS: HEPARIN SODIUM - IV 10,000 UNITS/10 ML VIAL PRN (13:21)
[2017-08-06] MEDS: GENTAMICIN SULFATE 20 MG/2 ML VIAL OTHER PRN (13:21)
--- NOTE | 2017-08-06 13:34 | HHI.CCPN ---
Subjective Brief History [place]: This is a 82-year-old gentleman who fell backwards off of a ladder with brief loss of consciousness and brief round of CPR at the scene was brought in as a level II trauma alert intubated in the trauma bay and upgraded to level I. He was found to have subdural and subarachnoid hemorrhages and was given 2 units of platelets for platelet dysfunction secondary to Plavix use. Final injuries: Right temporal intraparenchymal hemorrhage with slight subdural component Left frontoparietal and temporo-occipital subdural hematoma about 1 cm thick Patient has complex history of CHF,coronary artery disease, diabetes mellitus and chronic renal insufficiency requiring dialysis in 2013. Since then patient has been off dialysis but at this point creatinine is rising. 24 Hour Review/Hospital Course 07/[address] appears to be worse today with slight increase in the size of his bleeds Is currently on a Cardene drip to maintain systolic blood pressure less than 160 , his beta stacie has been held for a heart rate in the mid 50s 08/01/2017 Patient is intubated ventilated on propofol and fentanyl ICP measurements about 5-8 mmHg Remains sedated not moving any extremities at this time Hemodynamically patient is stable with hypertension. Patient is noted to be hypertensive from home and some of medications have been reinstituted In addition to Lopressor and hydralazine patient is currently on Cardene drip in order to keep systolic blood pressure under 160 mmHg Patient will need Catapres patch in order to wean off Cardene In face of increased creatinine and BUN patient did not have IV contrast to assess the chest and abdomen but externally there are no signs of trauma to either Renal function as above noted is impaired with rising creatinine and BUN. Nephrology consult from Dr. Chavez is greatly appreciated Patient will be managed expectantly and as the neurologic function improves sedation will be gradually weaned It should be noted that severe brain trauma in this age group with related medical problems survival is very low and patient is a high mortality probably in the range of 80-90%. 08/02/2017 Patient remains intubated ventilated and sedated with all neuroprotective measures Hemodynamically patient is stable and hypertensive on several antihypertensive drugs including Cardene noted to keep systolic blood pressure under 160 mmHg Bilateral breath sounds remains ventilatory dependent in the face of decreased level of consciousness On assist control ventilation 40% FiO2 Abdomen soft nontender will start on enteral feedings Nephrology help is greatly appreciated in the care of this patient with marginal renal function and he may need intermittent dialysis should his fluid status worsened and he becomes fluid overloaded 08/03/17 severe TBI on elderly patient with multiple medical issues PRINCE superimposed on chronic renal failure compensated metabolic acidosis secondary due to renal failure diuresis initiated by cardiac/vascular sonographer zafar for BP control 08/04/2018 Patient this point is off sedation however there is no appreciable neurologic function except for some movement of upper extremities [place] Coma Scale 4 Hemodynamically patient is stable however quite hypertensive on multiple medications and even on Cardene drip difficulty controlling systolic blood pressure Cardiology help is greatly appreciated. Cardiac function intact and no signs of contusion or acute injury to the heart Bilateral breath sounds decreased over the right base were patient has a infiltrate in the right lower lobe Remains on assist control ventilation fully supported not breathing over the respirator but with good PO2 FiO2 gradient Abdomen is soft and enteral feeds of tolerated Renal function is gradually deteriorating and patient had underlying renal insufficiency prior to this event. He was on dialysis few years ago in an unrelated episode. At this point in discussions with family there is some ambiguity about which way to go. This patient has 90% mortality in 100% morbidity and most likely in the best case scenario patient will require tracheostomy feeding tube and will remain bedridden permanently 08/05/2017 PTD: 6 Mechanically ventilated and sedated Patient remains hypertensive on max Cardene. Increased clonidine patch and added Norvasc. Will have meeting with family to discuss plan of care and decision on whether to progress to dialysis. 07/09/2017 PTD: 7 Patient remains mechanically ventilated and sedated. Remains hypertensive despite numerous agents. Currently on second session of dialysis. Objective Vital Signs Date Time Temp Pulse Resp B/P (MAP) Pulse Ox O2 Delivery O2 Flow Rate FiO2 08/06/17 12:00 70 08/06/17 12:00 97.5 61 12 152/66 (94) 94 Intake and Output 08/06/17 08/06/17 08/07/17 08:00 16:00 00:00 Intake Total 180 ml Output Total 1100 ml Balance -920 ml Result Diagram: 08/06/17 0346 08/06/17 0346 Other Results Laboratory Tests Test 08/06/17 04:35 Blood Gas Puncture Site ART LINE Blood Gas Patient Temperature 98.6 Blood Gas HCO3 20 mmol/L (22-26) Blood Gas Base Excess -5.2 mmol/L (-2-2) Blood Gas Oxygen Saturation 92 % (90-100) Arterial Blood pH 7.32 (7.380-7.420) Arterial Blood Partial Pressure CO2 40 mmHg (38-42) Arterial Blood Partial Pressure O2 78 mmHg (61-120) Arterial Blood Oxygen Content 11.9 Vol % (12.0-20.0) Arterial Blood Carboxyhemoglobin 1.3 % (0-4) Arterial Blood Methemoglobin 1.1 % (0-2) Blood Gas Hemoglobin 9.1 G/DL (12.0-16.0) Oxygen Delivery Device VENTILATOR Blood Gas Ventilator Setting SEE COMMENTS Blood Gas Inspired Oxygen 40 % Imaging Last 24 hours Impressions Chest X-Ray 08/06/17 0600 Signed Impressions: Service Date/Time: Sunday, August 06, 2017 02:56 - CONCLUSION: 1. Slightly improved bibasilar consolidation and small effusions. 2. No change mild cardiomegaly. Ra Ballard MD Objective Remarks GENERAL: This is a 82-year-old male lying in bed, sedated and intubated. SKIN: Warm and dry. HEAD: Normocephalic. ICP bolt in place. ENT: ETT to vent. OGT to TF. No nasal bleeding or discharge. Mucous membranes pink and moist. NECK: Trachea midline. No JVD. CARDIOVASCULAR: Regular rate and rhythm. CM show sinus rhythm. HR = 58-74 RESPIRATORY: Mechanically ventilated. Lungs are clear to auscultation. Breath sounds equal bilaterally. No distress or dyspnea. GASTROINTESTINAL: BS + x 4 quads. Abdomen soft, non-tender, nondistended. Dockery catheter in place to bedside drainage bag MUSCULOSKELETAL: Extremities without cyanosis. + peripheral pulses x 4 extremities. Warm with good capillary refill . Patient withdraws to pain bilateral lower extremities, but flaccid to bilateral upper extremities. Generalized edema. NEUROLOGICAL: Mechanically ventilated and sedated. Urinary Catheter Assessment Urinary Catheter: Yes Assessment to: Continue Vascular Central Line Catheter Vascular Central Line Catheter: Yes Side: Right Location: Internal, Jugular (Vas cath) Assessment and Plan Assessment: (1) Congestive heart failure ICD Code: I50.9 - Heart failure, unspecified Status: Chronic (2) Anemia ICD Code: D64.9 - Anemia, unspecified Status: Chronic (3) Acute kidney insufficiency ICD Code: N28.9 - Disorder of kidney and ureter, unspecified Status: Chronic (4) Respiratory failure ICD Code: J96.90 - Respiratory failure, unspecified, unspecified whether with hypoxia or hypercapnia Status: Acute (5) CKD (chronic kidney disease) stage 3, GFR 30-59 ml/min ICD Code: N18.3 - Chronic kidney disease, stage 3 (moderate) Status: Chronic (6) Unresponsive ICD Code: R41.89 - Other symptoms and signs involving cognitive functions and awareness Status: Acute (7) Intracranial bleed ICD Code: I62.9 - Nontraumatic intracranial hemorrhage, unspecified Status: Acute (8) Hypertensive emergency ICD Code: I16.1 - Hypertensive emergency Status: Acute (9) Edema due to congestive heart failure ICD Code: I50.9 - Heart failure, unspecified Status: Chronic (10) Dyspnea ICD Code: R06.00 - Dyspnea, unspecified Status: Acute (11) Traumatic brain injury ICD Code: S06.9X9A - Unspecified intracranial injury with loss of consciousness of unspecified duration, initial encounter Status: Acute (12) Major neurocognitive disorder as late effect of traumatic brain injury without behavioral disturbance ICD Code: S06.9X9S - Unspecified intracranial injury with loss of consciousness of unspecified duration, sequela; F02.80 - Dementia in other diseases classified elsewhere without behavioral disturbance Status: Acute Plan [place]: This is a 82-year-old male who sustained a fall. He fell off a ladder approximately 10 feet, striking his head. + LOC. Short period of CPR and then the patient woke up, confused with unequal pupils. GCS 13. Systolic blood pressure = 200. Patient is on Plavix. INJURIES: Temporal SAH RIGHT temporal SDH ?Aspiration PMHx: CHF, HTN, DM, CRF, HLD, PVD, Perforated appendix- sepsis (2 years ago) Procedures: 07/30: Intubated 07/30 - 08/05 [place] Consults: CCM. Neurosurgery. Renal. Cardiology. Rehabilitation medicine. Neuropsych. Palliative care. Case management. Assessment and plan by system: NEUROLOGICAL: Neurosurgery consulted and assisting in management and care Temporal SAH RIGHT temporal SDH Sedated and mechanically ventilated Patient is sedated with propofol and fentanyl gtts Begin sedation vacations daily to assess weaning capability. Pt is sedated with a RASS score of -2 Provide analgesia for comfort and pain - fentanyl Serial neuro checks. CT scans: For any change in neurological status 08/04: CT Brain - stable 08/01: CT brain - stable 07/31: CT brain - increase L SDH. Increase R temporal hemorrhage 07/30 - 08/05: ICP bolt placement Seizure precautions Seizure prophylaxis - Keppra BID HOB elevated 30 degrees - Hypernatremia status - 147 + peripheral pulses x 4 extremities. Patient remains flaccid in upper extremities Patient withdraws to pain and lower extremities CARDIOVASCULAR: Cardiology consulted and assisting in management and care Patient with history of CHF, HTN, HLD, PVD HR - 58-64 BP - 163/70 BP meds: Continues with Cardene gtt Lopressor 5 mg every 6 hours Scheduled Hydralazine 100 mg BID Hytrin 10 mg at bedtime Catapres patch 2 to 0.3 mg Norvasc increased to 10 mg QD Continually monitor for hemodynamic instability (shock and hypotension). Diuretics - LASIX 80 IV q 8H. Diuril 500mg BID Follow CMP - Electrolyte protocol - contraindicated due to CRF Obtain Echocardiogram: 07/31: Echo- EF 50-55%, mild pulm HTN RESPIRATORY: Critical care manager subway consulted and assisting in management and care Patient with history of CHF 07/30: Intubated Ventilator dependent: PRVC/AC: 550 / 12 / 70% / 1.0 / + 10 Patient will need tracheostomy PF ratio - 194, however increasing O2 demands Increase PEEP carefully (to assist in oxygenation by recruiting alveoli.) Weaning - slowly, and as tolerated O2 Sats - Monitor for hypoxemia Follow ABGs - Lung sounds - clear to auscultation, yet decreased to right lower lobe. Pulmonary toilet - L&S. Bronchodilators - Breathing treatments - duonebs. Chest X-Ray results - Bibasilar parenchymal consolidation and arxvs-xe-vlxybqol effusions persist, not significantly changed. No perceptible pneumothorax. VAP protocol in place - Follow-up Labs tomorrow Follow-up Chest X-Ray tomorrow GASTROINTESTINAL: Diet - Tube feeding. TF - Glucerna 1.5@55 mL/HR Patient will need PEG placement Bowel sounds - + x 4 quads Bowel regimen . Jackelyn- colace. MOM. Lactulose increased to QID, MiraLAX added. LBM - 0 Reglan 5 mg q 8h for increased residuals RENAL / URINARY: Flower [employer]er consulted and assisting in management and care Patient with history of chronic renal failure Strict I&O - -3065 BUN / creat 60 / 3.55 LASIX 80 IV q 8H.. Diuril 500mg BID - per nephrology Family has agreed to dialysis Right IJ vas catheter placed Dialysis started yesterday - 3L removed Dialysis again today K = 3.[address] to bedside drainage bag - 900 ml / 24 h 08/01: US kidney - no hydronephrosis ENDOCRINE: Patient with history of DM BGM - 112 SSI q 6h HEMATOLOGY: Patient with a history of chronic anemia H&H = 8.6 / 25.5 Continue to monitor for signs and symptoms of bleeding. Transfuse for < 7.0 08/03: PRBC 2 08/02: US Lower extremity study - NEGATIVE for DVT Monitor patient for any bleeding complications. INFECTIOUS DISEASE: Follow CBC Monitor for signs and symptoms of infection: WBC - 10.6 Fevers - 100.0 T max Administer antipyretics for temp as needed. Maintain vigorous aseptic care of central line/PIV to avoid blood stream infections. Consider a consult to ID for further management IV LINES: 07/30: ETT 07/30: OGT 08/05: R IJ vas cath 07/30: Dockery PROPHYLAXIS: VAP - protocol in place GI - Pepcid 10 mg BID DVT - Mechanical VTE with SCDs. Chemical management started with Heparin 5000 q 8h. SKIN: Warm and dry Generalized edema ACTIVITY: Status - BR PT and OT ordered. CASE MANAGEMENT: Consulted for assist with DC planning. EMOTIONAL SUPPORT: Provided to patient and family. Plan of care discussed. Discussed with bedside RN upon rounds This patient is currently critically ill and injured and being managed in the ICU. The trauma team will round each day, and evaluate plan of care on a daily basis. Discussed pt condition and plan of care with collaborating trauma surgeon. Problem Qualifiers (1) Congestive heart failure: Qualified Codes: I50.9 - Heart failure, unspecified (2) Anemia: Qualified Codes: D64.9 - Anemia, unspecified (3) Respiratory failure: Qualified Codes: J96.00 - Acute respiratory failure, unspecified whether with hypoxia or hypercapnia (4) Dyspnea: Qualified Codes: R06.00 - Dyspnea, unspecified (5) Traumatic brain injury: Petrona Lopez Aug 06, 2017 13:34
--- NOTE | 2017-08-06 13:41 | HHI.NPPN ---
Subjective History of Present Illness This patient is an 82-year-old male who unfortunately cannot provide any history secondary to head injury, intubated status on a ventilator. History obtained from records and from his daughter. Limited history available. Family patient has a history suggesting peripheral vascular disease, congestive heart failure, chronic lower extremity edema with dyspnea, chronic renal sufficiency?. According to the patient's daughter he was hospitalized back in 2013 at [facility]. Developed a ruptured appendix post colonoscopy subsequently developing acute renal failure and requiring laparotomy. According to the patient's daughter he was on dialysis temporarily. Not following up with a data support analyst routinely in recent times. They cannot recall name of his primary care physician currently also. Patient apparently fell short distance from a ladder and hit his head and subsequently has been diagnosed as having a subdural as well as subarachnoid hemorrhage. Creatinine was elevated at the time of presentation at 1.5 and chest x-ray showed evidence of congestive heart failure and the patient had a hemoglobin that was only 7.4. Echocardiogram performed July 31, 2017 revealed an ejection fraction of 50-55%. Patient's albumin on presentation his low with a low corrected calcium 7.8. Interval History Patient remains on ventilatory support with an ET tube in place. No purposeful response to verbal stimuli. Review of Systems General General Remarks Unable to obtain Objective Data Data 08/06/17 08/07/17 19:00 07:00 Output Total 5000 ml Balance -5000 ml Hemodialysis 5000 ml Vital Signs Date Time Temp Pulse Resp B/P (MAP) Pulse Ox O2 Delivery O2 Flow Rate FiO2 08/06/17 12:00 70 08/06/17 12:00 97.5 61 12 152/66 (94) 94 08/06/17 12:00 61 08/06/17 11:30 93 40 08/06/17 10:00 74 08/06/17 09:27 76 170/74 08/06/17 08:00 58 08/06/17 08:00 96.8 58 12 163/70 (101) 98 08/06/17 08:00 70 08/06/17 07:53 96 40 08/06/17 06:00 55 08/06/17 04:00 97.7 57 12 149/66 (93) 99 08/06/17 04:00 57 08/06/17 04:00 70 3/10/18 03:26 94 40 08/06/17 02:00 60 08/06/17 01:57 52 130/63 08/06/17 00:00 70 08/06/17 00:00 59 08/06/17 00:00 98.1 60 12 163/66 (98) 99 08/05/17 23:59 95 40 08/05/17 22:30 99 40 08/05/17 22:23 63 180/68 08/05/17 22:00 59 08/05/17 20:40 100 50 08/05/17 20:15 63 185/78 08/05/17 20:00 70 08/05/17 20:00 99.1 65 12 185/74 (111) 99 08/05/17 20:00 65 08/05/17 18:00 100.0 70 13 136/61 (86) 99 08/05/17 18:00 58 08/05/17 17:29 98 60 08/05/17 17:09 68 131/62 08/05/17 16:00 70 08/05/17 16:00 69 08/05/17 14:30 68 154/63 08/05/17 14:00 70 -: 08/06/17 0346 08/06/17 0346 Physical Exam General Appearance: Comfortable, Obese Appearance Remarks ET tube in place. Eyes Eye Exam: Sclera White Pulmonary Resp Exam: Breath Sounds Equal, No Distress, Decreased Bases Cardiology CV Exam: Regular, Normal Sinus Rhythm Gastrointestinal/Abdomen GI Exam: Non-Tender, Distended Extremeties Extremities Exam: Moderate Edema (improved slightly since yesterday.), Pitting Edema, Dependent Edema (diffuse edema involving all extremities, hips and dependent torso.) Neurologic Neuro Exam: Sedated Assessment/Plan Discussed Condition With: Relative Problem List: (1) Acute kidney insufficiency ICD Codes: N28.9 - Disorder of kidney and ureter, unspecified Status: Chronic Plan: Patient has completed his second dialysis session today. I will plan for referred session tomorrow for additional fluid removal. Family as mentioned in my previous note wishes to continue with dialytic support for the next 5-6 days in the hope that his neurological status will improve. If no improvement they have indicated that they will consider comfort care. Electrolytes and acid-base status have improved with dialysis. If the patient require dialysis long-term with no improvement in neurological state requiring PEG and trach and the family wishes continue same he will likely require institutionalization in a long-term care facility which could provide dialytic services most likely out of town. Medications should be adjusted for the patient's estimated GFR if clinically indicated. Avoid agents with significant potential for nephrotoxicity possible including NSAIDs for analgesia, iodine contrast agents. Gadolinium is contraindicated if the GFR is below 30. (2) CKD (chronic kidney disease) stage 3, GFR 30-59 ml/min ICD Codes: N18.3 - Chronic kidney disease, stage 3 (moderate) Status: Chronic Plan: Baseline renal function unknown. Patient currently has a history of chronic lower extremity edema and dyspnea. Unfortunately previous records not available but I suspect that the patient has a component of chronic CHF. 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 Also previous history of acute renal failure may have resulted in significant deterioration in his baseline renal function but those records are not available to me currently. (3) Congestive heart failure ICD Codes: I50.9 - Heart failure, unspecified Status: Chronic Plan: Continue furosemide and Diuril as ordered. Monitor response. Most likely has some degree of diastolic dysfunction as EF was reported as being 50-55%. (4) Edema due to congestive heart failure ICD Codes: I50.9 - Heart failure, unspecified Status: Chronic Plan: In addition patient does have evidence of hypoalbuminemia. Need to determine as the patient has significant proteinuria. UPCR pending (5) Major neurocognitive disorder as late effect of traumatic brain injury without behavioral disturbance ICD Codes: S06.9X9S - Unspecified intracranial injury with loss of consciousness of unspecified duration, sequela; F02.80 - Dementia in other diseases classified elsewhere without behavioral disturbance Status: Acute (6) Hyperkalemia ICD Codes: E87.5 - Hyperkalemia Status: Resolved Plan: Resolved with dialysis. (7) HTN (hypertension) ICD Codes: I10 - Essential (primary) hypertension Plan: The pressure still significantly elevated. On multiple classes of hypertensive medications. Would like to try to avoid using an angiotensin receptor stacie and MATTY inhibitor for the present in the setting of his acute renal insufficiency. Will increase Hytrin to twice a day dosing and titrate upward as indicated. Problem Qualifiers (1) Congestive heart failure: Qualified Codes: I50.9 - Heart failure, unspecified Michell Chavez MD Aug 06, 2017 13:41
--- NOTE | 2017-08-06 14:43 | PD.CARD.PN ---
Subjective Subjective Remarks No events overnight No arrhythmias noted Started on HD Objective Medications Current Medications Medications (Trade) Dose Ordered Sig/Juliet Route Start Time Stop Time Status Last Admin (NS Flush) 2 ml UNSCH PRN IV FLUSH 07/30/17 12:45 08/03/17 09:43 (Zofran Inj) 4 mg Q6H PRN IV PUSH 07/30/17 12:45 Miscellaneous Information 1 Q361D XX 07/30/17 12:45 (Chlorhexidine 2% Cloth) Taper DAILY@04 TOP 07/31/17 04:00 07/27/18 03:59 08/05/17 03:26 (Chlorhexidine 2% Cloth) 3 pack UNSCH PRN TOP 07/30/17 12:45 (Peridex 0.12% Liq) 15 ml BID@08,20 MT 07/30/17 20:00 08/06/17 07:57 Fentanyl Citrate 250 ml @ 5 mls/hr TITRATE PRN IV 07/30/17 13:30 08/05/17 22:20 Propofol 100 ml @ 2.64 mls/hr TITRATE PRN IV 07/30/17 13:30 08/05/17 06:56 (Pepcid) 10 mg BID PO 07/30/17 21:00 08/06/17 07:57 (Pravachol) 40 mg DAILY PO 07/31/17 09:00 08/06/17 07:57 (D50w (Vial) Inj) 50 ml UNSCH PRN IV PUSH 07/31/17 07:45 (Glucagon Inj) 1 mg UNSCH PRN OTHER 07/31/17 07:45 (Jackelyn-Colace) 1 tab BID PO 08/01/17 21:00 08/06/17 07:57 (Lactulose Liq) 30 ml DAILY PO 08/01/17 16:15 08/06/17 07:56 (Dulcolax Supp) 10 mg DAILY PRN RECTAL 08/01/17 16:15 (NovoLOG SUPPLEMENTAL SCALE) 1 Q6HR SQ 08/01/17 18:00 (Diuril Inj) 500 mg Q12H IV 08/03/17 01:00 08/06/17 13:58 (Lopressor Inj) 5 mg Q6H IV PUSH 08/04/17 10:00 08/06/17 11:26 (Apresoline Inj) 10 mg Q4HR PRN IV PUSH 08/04/17 12:30 08/05/17 20:13 (Lasix Inj) 80 mg Q8HR IV PUSH 08/04/17 22:00 08/06/17 13:53 (Milk Of Magncrystal Liq) 30 ml BID PO 08/05/17 09:00 08/06/17 07:56 (Catapres-Tts 0.3 Mg Patch.7d) 1 patch Q7D T-DERMAL 08/05/17 11:00 08/05/17 11:49 (Reglan Inj) 5 mg Q8HR IV PUSH 08/05/17 14:00 08/06/17 13:53 (Heparin Inj) 5,000 units Q8HR SQ 08/05/17 14:00 08/06/17 06:13 Miscellaneous Information 1 Q7D T-DERMAL 08/12/17 11:00 Sodium Chloride 1,000 ml @ 0 mls/hr Q0M PRN OTHER 08/05/17 13:51 Sodium Chloride 1,000 ml @ 200 mls/hr Q5H PRN IV 08/05/17 13:51 08/06/17 13:21 Sodium Chloride 1,000 ml @ 0 mls/hr Q0M PRN OTHER 08/05/17 13:51 Albumin Human 100 ml @ 60 mls/hr UNSCH PRN IV 08/05/17 14:00 08/05/17 17:10 (NS Flush) 5 ml UNSCH PRN IV FLUSH 08/05/17 14:00 (Heparin Inj) UNSCH PRN .XX 08/05/17 14:00 08/06/17 13:21 (Gentamicin Inj) 20 mg UNSCH PRN OTHER 08/05/17 14:00 08/06/17 13:21 (Zofran Inj) 4 mg UNSCH PRN IV PUSH 08/05/17 14:00 (Tylenol) 650 mg UNSCH PRN PO 08/05/17 14:00 (Benadryl) 25 mg UNSCH PRN PO 08/05/17 14:00 (Nitrostat Sl) 0.4 mg UNSCH PRN SL 08/05/17 14:00 (Catapres) 0.1 mg UNSCH PRN PO 08/05/17 14:00 (Gelfoam 12 Mm/7 Mm Top) 1 foam UNSCH PRN TOP 08/05/17 14:00 Nicardipine HCl 50 mg/Sodium Chloride 500 ml @ 50 mls/hr TITRATE PRN IV 08/06/17 00:15 08/06/17 14:34 (Duoneb Neb) 1 ampule Q6HR NEB NEB 08/06/17 10:00 (Albuterol Neb) 2.5 mg Q2HR NEB PRN NEB 08/06/17 09:45 (Norvasc) 10 mg DAILY PO 08/07/17 09:00 (Apresoline) 100 mg Q8HR PO 08/06/17 14:00 08/06/17 13:53 (Keppra Liq) 500 mg Q12HR NG 08/06/17 21:00 (Lactulose Liq) 30 ml QID PO 08/06/17 13:00 08/06/17 13:53 (Miralax) 17 gm BID NG 08/06/17 21:00 (Zyloprim) 100 mg DAILY PO 08/07/17 09:00 (Hytrin) 7 mg BID NG 08/06/17 13:30 Vital Signs / I&O Vital Signs Date Time Temp Pulse Resp B/P (MAP) Pulse Ox O2 Delivery O2 Flow Rate FiO2 08/06/17 14:34 77 162/72 08/06/17 12:00 70 08/06/17 12:00 97.5 61 12 152/66 (94) 94 08/06/17 12:00 61 08/06/17 11:30 93 40 08/06/17 10:00 74 08/06/17 09:27 76 170/74 08/06/17 08:00 58 08/06/17 08:00 96.8 58 12 163/70 (101) 98 08/06/17 08:00 70 08/06/17 07:53 96 40 08/06/17 06:00 55 08/06/17 04:00 97.7 57 12 149/66 (93) 99 08/06/17 04:00 57 08/06/17 04:00 70 08/06/17 03:26 94 40 08/06/17 02:00 60 08/06/17 01:57 52 130/63 08/06/17 00:00 70 08/06/17 00:00 59 08/06/17 00:00 98.1 60 12 163/66 (98) 99 08/05/17 23:59 95 40 08/05/17 22:30 99 40 08/05/17 22:23 63 180/68 08/05/17 22:00 59 08/05/17 20:40 100 50 08/05/17 20:15 63 185/78 08/05/17 20:00 70 08/05/17 20:00 99.1 65 12 185/74 (111) 99 08/05/17 20:00 65 08/05/17 18:00 100.0 70 13 136/61 (86) 99 08/05/17 18:00 58 08/05/17 17:29 98 60 08/05/17 17:09 68 131/62 08/05/17 16:00 70 08/05/17 16:00 69 I/O 08/05/17 08/05/17 08/05/17 08/06/17 08/06/17 08/06/17 07:00 15:00 23:00 07:00 15:00 23:00 Intake Total 1550 ml 955 ml 180 ml Output Total 850 ml 3100 ml 1100 ml 5000 ml Balance 700 ml -2145 ml -920 ml -5000 ml IV Total 1550 ml 955 ml Tube Feeding 120 ml Tube Irrigant 60 ml Output Urine Total 600 ml 100 ml 800 ml Gastric Drainage Total 250 ml 300 ml Hemodialysis 3000 ml 5000 ml # Bowel Movements 0 0 0 Physical Exam GENERAL: Intubated and sedated SKIN: Warm and dry. HEAD: Atraumatic. Normocephalic. EYES: Pupils equal and round. No scleral icterus. No injection or drainage. ENT: No nasal bleeding or discharge. Mucous membranes pink and moist. NECK: Trachea midline. No JVD. CARDIOVASCULAR: Regular rate and rhythm. RESPIRATORY: No accessory muscle use. Clear to auscultation. Breath sounds equal bilaterally. GASTROINTESTINAL: Abdomen soft, non-tender, nondistended. Hepatic and splenic margins not palpable. MUSCULOSKELETAL: Extremities without clubbing, cyanosis, or edema. No obvious deformities. NEUROLOGICAL: Unable to determine. ICP monitor in place, pressures 4-13 Laboratory Laboratory Tests Test 08/05/17 17:10 08/06/17 03:46 08/06/17 04:35 Blood Urea Nitrogen 80 MG/DL 60 MG/DL Creatinine 4.33 MG/DL 3.55 MG/DL Random Glucose 99 MG/DL 112 MG/DL Calcium Level 7.7 MG/DL 7.9 MG/DL Sodium Level 151 MEQ/L 147 MEQ/L Potassium Level 3.5 MEQ/L 3.5 MEQ/L Chloride Level 119 MEQ/L 113 MEQ/L Carbon Dioxide Level 18.5 MEQ/L 21.5 MEQ/L Anion Gap 14 MEQ/L 13 MEQ/L Estimat Glomerular Filtration Rate 13 ML/MIN 17 ML/MIN White Blood Count 10.6 TH/MM3 Red Blood Count 2.96 MIL/MM3 Hemoglobin 8.6 GM/DL Hematocrit 25.5 % Mean Corpuscular Volume 86.3 FL Mean Corpuscular Hemoglobin 29.0 PG Mean Corpuscular Hemoglobin Concent 33.6 % Red Cell Distribution Width 24.1 % Platelet Count 99 TH/MM3 Mean Platelet Volume 9.5 FL Neutrophils (%) (Auto) 78.3 % Lymphocytes (%) (Auto) 6.4 % Monocytes (%) (Auto) 13.5 % Eosinophils (%) (Auto) 1.5 % Basophils (%) (Auto) 0.3 % Neutrophils # (Auto) 8.3 TH/MM3 Lymphocytes # (Auto) 0.7 TH/MM3 Monocytes # (Auto) 1.4 TH/MM3 Eosinophils # (Auto) 0.2 TH/MM3 Basophils # (Auto) 0.0 TH/MM3 CBC Comment AUTO DIFF Differential Total Cells Counted 100 Neutrophils % (Manual) 73 % Band Neutrophils % 5 % Lymphocytes % 6 % Monocytes % 15 % Basophils % 1 % Neutrophils # (Manual) 8.3 TH/MM3 Differential Comment FINAL DIFF MANUAL Platelet Estimate LOW Platelet Morphology Comment NORMAL Ovalocytes 1+ Acanthocytes 1+ Total Protein 5.6 GM/DL Albumin 2.5 GM/DL Alkaline Phosphatase 114 U/L Aspartate Amino Transf (AST/SGOT) 16 U/L Alanine Aminotransferase (ALT/SGPT) 10 U/L Total Bilirubin 1.0 MG/DL Blood Gas Puncture Site ART LINE Blood Gas Patient Temperature 98.6 Blood Gas HCO3 20 mmol/L Blood Gas Base Excess -5.2 mmol/L Blood Gas Oxygen Saturation 92 % Arterial Blood pH 7.32 Arterial Blood Partial Pressure CO2 40 mmHg Arterial Blood Partial Pressure O2 78 mmHg Arterial Blood Oxygen Content 11.9 Vol % Arterial Blood Carboxyhemoglobin 1.3 % Arterial Blood Methemoglobin 1.1 % Blood Gas Hemoglobin 9.1 G/DL Oxygen Delivery Device VENTILATOR Blood Gas Ventilator Setting SEE COMMENTS Blood Gas Inspired Oxygen 40 % Imaging Last 24 hours Impressions Chest X-Ray 08/06/17 0600 Signed Impressions: Service Date/Time: Sunday, August 06, 2017 02:56 - CONCLUSION: 1. Slightly improved bibasilar consolidation and small effusions. 2. No change mild cardiomegaly. Ra Ballard MD Assessment and Plan Problem List: (1) Major neurocognitive disorder as late effect of traumatic brain injury without behavioral disturbance ICD Codes: S06.9X9S - Unspecified intracranial injury with loss of consciousness of unspecified duration, sequela; F02.80 - Dementia in other diseases classified elsewhere without behavioral disturbance Status: Acute (2) Intracranial bleed ICD Codes: I62.9 - Nontraumatic intracranial hemorrhage, unspecified Status: Acute (3) Edema due to congestive heart failure ICD Codes: I50.9 - Heart failure, unspecified Status: Chronic (4) Hypertensive emergency ICD Codes: I16.1 - Hypertensive emergency Status: Acute (5) CKD (chronic kidney disease) stage 3, GFR 30-59 ml/min ICD Codes: N18.3 - Chronic kidney disease, stage 3 (moderate) Status: Chronic (6) Acute kidney insufficiency ICD Codes: N28.9 - Disorder of kidney and ureter, unspecified Status: Chronic Assessment and Plan 1) Mechanical fall leading in subdural/subarachnoid hemorrhage 2) Benign PVCs Normal function on echo Electrolytes normal range 3) ASA/Plavix stopped for ICH 4) Blood pressure elevated Currently on Cardene drip Hydralazine PRN Hytrin increased by Nephrology 5) Worsening renal function, started on HD Aman Lind DO Aug 06, 2017 14:43
[2017-08-06] MEDS: TERAZOSIN HCL 1 MG CAP NG SCH ×2 (15:16→21:28)
--- NOTE | 2017-08-06 17:31 | HHI.NSPN ---
Note Status Status: Progress Note Interval History Interval History This is an 82-year-old gentleman who fell backwards off of a ladder approximately 10 feet. He underwent a brief round of CPR but was found to be spontaneously breathing so it was stopped patient was brought in the trauma bay hypertensive and confused he was intubated in the trauma bay. No seizure activity reported. No tongue biting. No incontinence of stool or urine. No tonic-clonic movements. He had unequal pupils and a coffee-ground emesis prior to intubation. He was upgraded to a level I trauma alert. He was resuscitated according to the ATLS protocol and full trauma workup was carried down. He was found to have right subarachnoid hemorrhage as well as subdural hematoma. He was given 2 units of platelets that for his platelet insufficiency due to Plavix. He was moving his extremities. Neurosurgical consultation was requested 07/31/17. Remains intubated and sedated. ICP monitor in place. A follow-up CT of the brain was obtained 08/06 remains mechanically ventilated and sedated. Remains hypertensive despite numerous agents. Currently on second session of dialysis. Labs, Micro, & Vital Signs Results Date Time Temp Pulse Resp B/P (MAP) Pulse Ox O2 Delivery O2 Flow Rate FiO2 08/06/17 16:00 98.4 91 19 150/65 (93) 98 08/06/17 16:00 70 08/06/17 16:00 91 08/06/17 15:28 98 40 08/06/17 14:34 77 162/72 08/06/17 14:00 86 08/06/17 12:00 70 08/06/17 12:00 97.5 61 12 152/66 (94) 94 08/06/17 12:00 61 08/06/17 11:30 93 40 08/06/17 10:00 74 08/06/17 09:27 76 170/74 08/06/17 08:00 58 08/06/17 08:00 96.8 58 12 163/70 (101) 98 08/06/17 08:00 70 08/06/17 07:53 96 40 3/10/18 06:00 55 08/06/17 04:00 97.7 57 12 149/66 (93) 99 08/06/17 04:00 57 08/06/17 04:00 70 08/06/17 03:26 94 40 08/06/17 02:00 60 08/06/17 01:57 52 130/63 08/06/17 00:00 70 08/06/17 00:00 59 08/06/17 00:00 98.1 60 12 163/66 (98) 99 08/05/17 23:59 95 40 08/05/17 22:30 99 40 08/05/17 22:23 63 180/68 08/05/17 22:00 59 08/05/17 20:40 100 50 08/05/17 20:15 63 185/78 08/05/17 20:00 70 08/05/17 20:00 99.1 65 12 185/74 (111) 99 08/05/17 20:00 65 08/05/17 18:00 100.0 70 13 136/61 (86) 99 08/05/17 18:00 58 08/07/17 07:00 Intake Total 1152.1 ml Output Total 5000 ml Balance -3847.9 ml Constitutional Vital Signs Date Time Temp Pulse Resp B/P (MAP) Pulse Ox O2 Delivery O2 Flow Rate FiO2 08/06/17 16:00 98.4 91 19 150/65 (93) 98 08/06/17 16:00 70 08/06/17 16:00 91 08/06/17 15:28 98 40 08/06/17 14:34 77 162/72 08/06/17 14:00 86 08/06/17 12:00 70 08/06/17 12:00 97.5 61 12 152/66 (94) 94 08/06/17 12:00 61 08/06/17 11:30 93 40 08/06/17 10:00 74 08/06/17 09:27 76 170/74 08/06/17 08:00 58 08/06/17 08:00 96.8 58 12 163/70 (101) 98 08/06/17 08:00 70 08/06/17 07:53 96 40 08/06/17 06:00 55 08/06/17 04:00 97.7 57 12 149/66 (93) 99 08/06/17 04:00 57 08/06/17 04:00 70 08/06/17 03:26 94 40 08/06/17 02:00 60 08/06/17 01:57 52 130/63 08/06/17 00:00 70 08/06/17 00:00 59 08/06/17 00:00 98.1 60 12 163/66 (98) 99 08/05/17 23:59 95 40 08/05/17 22:30 99 40 08/05/17 22:23 63 180/68 08/05/17 22:00 59 08/05/17 20:40 100 50 08/05/17 20:15 63 185/78 08/05/17 20:00 70 08/05/17 20:00 99.1 65 12 185/74 (111) 99 08/05/17 20:00 65 08/05/17 18:00 100.0 70 13 136/61 (86) 99 08/05/17 18:00 58 08/07/17 07:00 Intake Total 1152.1 ml Output Total 5000 ml Balance -3847.9 ml Physical Exam Mr. Alonzo is intubated and minimally sedated, he has minimal eyes opening when suctioned. did not open eyes to void. he does not follow commands. Head: Right bolt site with steri strips in place, dry. Cranial Nerves: Pupils right 2mm, left 3 mm round. Cervical Spine: soft, supple Motor: not following commands for testing, minimal withdraw in feet bilaterally , no response to pain in upper extremities. diffuse extremity swelling Sensory: minimal response to painful stimuli in feet Cerebellar: cannot be adequately assessed due to the patient's neurological condition. Heart: regular rate, rhythm Resp: clear, mechanically ventilated Skin: warm, dry Medical Decision Making MDM Remarks Caprini Risk Assessment Model Point Value = 1 Point Value = 2 Point Value = 3 Point Value = 5 Age 41-60 Minor surgery BMI > 25 kg/m2 Swollen legs Varicose veins or History of unexplained or recurrent spontaneous Oral contraceptives or hormone replacement Sepsis (< 1 month) Serious lung disease, including pneumonia (< 1 month) Abnormal pulmonary function Acute myocardial infarction Congestive heart failure (< 1 month) History of inflammatory bowel disease Medical patient at bed rest Age 61-74 Arthroscopic surgery Major open surgery (> 45 min) Laparoscopic surgery (> 45 min) Malignancy Confined to bed (> 72 hours) Immobilizing plaster cast Central venous access Age >= 75 History of VTE Family history of VTE Factor V Leiden Prothrombin [id number] Lupus anticoagulant Anticardiolipin antibodies Elevated serum homocysteine Heparin-induced thrombocytopenia Other congenital or acquired thrombophilia Stroke (< 1 month) Elective arthroplasty Hip, pelvis, or leg fracture Acute spinal cord injury (< 1 month) Prophylaxis Regimen Total Risk Factor Score Risk Level Prophylaxis Regimen 0-1 Low Early ambulation 2 Moderate Order ONE of the following: *Sequential Compression Device (SCD) *Heparin 5000 units SQ BID 3-4 Higher Order ONE of the following medications: *Heparin 5000 units SQ TID *Enoxaparin/Lovenox 40 mg SQ daily (WT < 150 kg, CrCl > 30 mL/min) *Enoxaparin/Lovenox 30 mg SQ daily (WT < 150 kg, CrCl > 10-29 mL/min) *Enoxaparin/Lovenox 30 mg SQ BID (WT < 150 kg, CrCl > 30 mL/min) AND/OR *Sequential Compression Device (SCD) 5 or more Highest Order ONE of the following medications: *Heparin 5000 units SQ TID (Preferred with Epidurals) *Enoxaparin/Lovenox 40 mg SQ daily (WT < 150 kg, CrCl > 30 mL/min) *Enoxaparin/Lovenox 30 mg SQ daily (WT < 150 kg, CrCl > 10-29 mL/min) *Enoxaparin/Lovenox 30 mg SQ BID (WT < 150 kg, CrCl > 30 mL/min) AND *Sequential Compression Device (SCD) Attending Statement Given his age and combination of injuries, Mr Alonzo remains in critical condition. He is at risk of clinical deterioration. We likely will need dialysis , and he is not weaning well from ventilator Pulmonary. Continue full mechanical ventilation in Assist control mode of ventilation aggressive pulmonary toilette, nasotracheal suction, and breathing treatments with nebulizers. Daily PT and OT Renal. monitor closely urine output, BUN and creatinine Endocrine.Monitor serial Acu checks and SSI as needed in detail ID monitor for signs of infection Protonix for stress ulcer prophylaxis Gilbert hose and SCD's for DVT prophylaxis Further recommendations will be provided depending on the patient's clinical evaluation and follow up studies Les Horne MD Aug 06, 2017 17:31
--- NOTE | 2017-08-06 18:49 | RADRPT ---
EXAM DATE/TIME: 08/06/2017 18:13 [facility] COMPARISON: CHEST SINGLE AP, August 06, 2017, 2:56. INDICATIONS : Patient vomited while laying flat. Evaluated for aspiration. MEDICAL HISTORY : Hypertension. Congestive heart failure. Hypercholesterolemia. Diabetes. SURGICAL HISTORY : Unobtainable. ENCOUNTER: Initial ACUITY: 1 day PAIN SCORE: Non-responsive. LOCATION: Bilateral chest FINDINGS: Endotracheal tube, nasogastric tube and right central line in good position. Basilar airspace disease and effusions similar to exam from earlier today. Cardiomegaly. No pneumothorax. CONCLUSION: Endotracheal tube in good position. NG enters stomach. Bilateral mostly basilar airspace disease and pleural effusions, similar to exam from earlier today. Charles Neal MD on August 06, 2017 at 18:46 Board Certified Radiologist. This report was verified electronically.
[2017-08-06] MEDS: POLYETHYLENE GLYCOL 17 GM PKG NG SCH (21:00)
[2017-08-06] MEDS: levETIRAcetam 500 MG/5 ML UDC NG SCH (21:28)
--- NOTE | 2017-08-06 21:55 | EKG ---
Date Performed: 08/06/2017 Time Performed: 19:21:22 PTAGE: 82 years EKG: Atrial fibrillation with rapid ventricular response with PVC(s) LVH with secondary repolari zation abnormality Inferior/lateral ST-T changes may be due to hypertrophy and/or ischemia Abnormal E CG Compared to prior electrocardiogram, atrial fibrillation and ST segment and T wave changes are now present . PREVIOUS TRACING : 08/02/2017 11.03 DOCTOR: Cesar Maradiaga Interpretating Date/Time 08/06/2017 21:53:22
[2017-08-06] MEDS ORDERED: DILTIAZEM HCL 25 MG/5 ML VIAL IV PUSH ONE (22:45)
[2017-08-06] MEDS ORDERED: DILTIAZEM HCL 50 MG/10 ML VIAL IV ONE (23:30)
[2017-08-07] VITALS (14 sets, daily range): BP systolic 110–158; BP diastolic 54–65; PULSE 58–126; RESP 12–24; TEMP 98.1–99.3; O2SAT 93–100
[2017-08-07] MEDS: DILTIAZEM INJ 125 MG in SODIUM CHLORIDE 0.9% INJ 100 ML IV PRN (00:25)
[2017-08-07] MEDS: CHLOROTHIAZIDE SOD 500 MG VIAL IV SCH ×2 (01:56→14:44)
[2017-08-07] MEDS: niCARdipine INJ 50 MG in SODIUM CHLORID 0.9% 500 ML INJ 480 ML IV PRN ×2 (02:00→06:40)
[2017-08-07] MEDS: RESP: ALBUTEROL 2.5 MG/IPRATROPIUM 0.5 MG NEB (SCH) NEB ×4 (03:36→20:18)
[2017-08-07] MEDS: CHLORHEXIDINE GLUCONATE 2 % 1 PACK (2 CLOTHS) TOP SCH (04:00)
[2017-08-07] MEDS: hydrALAZINE HCL 20 MG/ML VIAL IV PUSH PRN (04:12)
[2017-08-07] MEDS: METOPROLOL TARTRATE 5 MG/5 ML VIAL IV PUSH SCH ×4 (04:35→23:04)
[2017-08-07 05:15] LABS: BASOPHIL % 0.3 % (0.0-2.0); EOSINOPHIL % 0.3 % (0.0-4.0); HEMATOCRIT 28.8 % (39.0-51.0); HEMOGLOBIN 9.6 GM/DL (13.0-17.0); LYMPH % 4.2 % (9.0-44.0); LYMPHOCYTE # 0.6 TH/MM3 (1.0-4.8); MEAN CELL VOLUME 86.8 FL (80.0-100.0); MEAN CORPUSCULAR HEMOGLOBIN 28.8 PG (27.0-34.0); MEAN CORPUSCULAR HGB CONC 33.2 % (32.0-36.0); MONO % 10.1 % (0.0-8.0); MONOCYTE # 1.4 TH/MM3 (0-0.9); NEUT % 85.1 % (16.0-70.0); PLATELET COUNT 96 TH/MM3 (150-450); RED BLOOD COUNT 3.32 MIL/MM3 (4.50-5.90); WHITE BLOOD COUNT 14.1 TH/MM3 (4.0-11.0)
[2017-08-07] MEDS: hydrALAZINE HCL 100 MG TAB PO SCH ×3 (05:18→20:30)
[2017-08-07] MEDS: HEPARIN SODIUM - SQ 10,000 UNITS/ML VIAL SQ SCH ×2 (05:18→14:00)
[2017-08-07] MEDS: FUROSEMIDE 100 MG/10 ML VIAL IV PUSH SCH ×3 (05:18→20:29)
[2017-08-07] MEDS: METOCLOPRAMIDE HCL 10 MG/2 ML VIAL IV PUSH SCH ×3 (05:18→20:29)
[2017-08-07 05:35] LABS: ALBUMIN 2.4 GM/DL (3.4-5.0); BICARBONATE 20.1 MEQ/L (21.0-32.0); CALCIUM 8.3 MG/DL (8.5-10.1); CREATININE 3.16 MG/DL (0.60-1.30); PHOSPHORUS 5.9 MG/DL (2.5-4.9)
[2017-08-07] MEDS: INSULIN ASPART SUPPLEMENTAL SCALE SQ SCH ×5 (05:36→23:43)
[2017-08-07 05:41] LABS: MAGNESIUM 2.4 MG/DL (1.5-2.5)
[2017-08-07] MEDS: PROPOFOL 1000 MG/100 ML IV PRN ×5 (06:25→23:11)
[2017-08-07 06:27] LABS: OVALOCYTES 1+ (NORMAL); TEARDROP RBCS 1+ (NORMAL)
--- NOTE | 2017-08-07 06:30 | RADRPT ---
EXAM DATE/TIME: 08/07/2017 05:12 [facility] COMPARISON: CHEST SINGLE AP, August 06, 2017, 18:13. INDICATIONS : Respiratory failure. MEDICAL HISTORY : Hypertension. Congestive heart failure. Hypercholesterolemia. Diabetes. SURGICAL HISTORY : None. ENCOUNTER: Subsequent ACUITY: 1 week PAIN SCORE: Non-responsive. LOCATION: Bilateral chest FINDINGS: Bibasilar consolidation and probable small effusions again noted and not significantly changed. No pn eumothorax demonstrated. Mild cardiomegaly is stable. Endotracheal tube tip is approximately 2 cm above the lorenzo. There is a nasogastric tube coursing in to the stomach. Right internal jugular cordis catheter with tip at atriocaval junction again noted. CONCLUSION: No significant change. Ra Ballard MD on August 07, 2017 at 6:28 Board Certified Radiologist. This report was verified electronically.
--- NOTE | 2017-08-07 06:38 | RADRPT ---
EXAM DATE/TIME: 08/07/2017 05:16 [facility] COMPARISON: No previous studies available for comparison. INDICATIONS : Ileus. MEDICAL HISTORY : Hypertension. Congestive heart failure. Hypercholesterolemia. Diabetes. SURGICAL HISTORY : Unobtainable. ENCOUNTER: Initial ACUITY: 1 day PAIN SCORE: Non-responsive. LOCATION: abdomen FINDINGS: Supine view of the abdomen was performed. The abdominal bowel gas pattern is normal. No abnormal ma sses, calcifications, or organomegaly is seen. The osseous structures are unremarkable. There is a nasogastric tube with tip in the upper stomach. The sidehole is slightly above the GE junc tion. 1 cm increased density projects over the right iliac bone, probably a benign bone island. Apparent pr evious cholecystectomy changes. CONCLUSION: Benign-appearing abdomen. Nasogastric tube tip is in the upper stomach. Ra Ballard MD on August 07, 2017 at 6:36 Board Certified Radiologist. This report was verified electronically.
[2017-08-07] MEDS ORDERED: MANNITOL INJ 100 ML ONE (07:16)
[2017-08-07] MEDS ORDERED: DILTIAZEM HCL 25 MG/5 ML VIAL ONE (07:36)
[2017-08-07] MEDS ORDERED: METOPROLOL TARTRATE 5 MG/5 ML VIAL IV PUSH PRN (07:45)
[2017-08-07] MEDS ORDERED: SODIUM BICARBONATE 8.4% SOLN 50 MEQ/50 ML VIAL IV ONE (07:45)
[2017-08-07] MEDS: CHLORHEXIDINE 0.12% (ORAL KIT) 15 ML CUP MT SCH ×2 (08:00→21:01)
--- NOTE | 2017-08-07 08:00 | HHI.CCPN ---
Subjective Remarks/Hospital Course 82 y/o man fell from height and sustained closed head trauma including left subdural hematoma and bilateral temporal parenchymal bleeds in areas of contusion. Admission CXR is impressive for pulmonary venous congestion. Home meds are not known at this time. 07/31: Enlarging left subdural hemorrhage and enlarging parenchymal contusions/ bleeds undoubtedly exacerbated by Plavix and aspirin use. CXR demonstrates bilateral effusions but improved pulmonary venous congestion after diuretic yesterday. Unfortunately a worsening azotemia has developed indicating he may not tolerate diuresis well. Follow renal function closely. I would have predicted chronic systolic heart failure after observing his effusions and ankles but his cardiac ECHO reveals reasonable biventricular function, probably EF > 50%. This may all be primary renal disease considering his reduced GFR and chronic anemia. 08/01: Remains sedated, orally intubated on mechanical ventilation 08/05: Remains sedated, orally intubated on mechanical ventilation. Renal function continued to decline of the last few days. Family wishes to proceed with hemodialysis after discussion with trauma team and nephrology. Subjective 08/06: Afebrile. Bradycardic. No acute cardiovascular incidents overnight. Continues on nicardipine drip at 7.5 mg an hour. Hemodialysis yesterday -3 L 08/07: Hypoxemic increasing oxygen requirement. Currently on 60% FiO2 10 of PEEP. Also developed atrial fibrillation with RVR, currently on Cardizem infusion at 15 mg/h with heart rate in 130s, Cardene infusion at 15 mg/h to control blood pressure. Additional 50 mg IV push of Cardizem ordered. Chest x- ray with bilateral basilar infiltrates left more than right. Increased yellow ET tube secretions. Start cefepime 1 gm IV q12 and vancomycin 1 gm IV x1 Objective Vital Signs Date Time Temp Pulse Resp B/P (MAP) Pulse Ox O2 Delivery O2 Flow Rate FiO2 08/07/17 06:40 133 158/74 08/07/17 06:05 93 60 08/07/17 00:00 98.4 19 Result Diagram: 08/07/17 0420 08/07/170 Other Results Laboratory Tests Test 08/07/17 06:35 Blood Gas Puncture Site LT RADIAL Blood Gas Patient Temperature 98.6 Blood Gas HCO3 16 mmol/L (22-26) Blood Gas Base Excess -7.7 mmol/L (-2-2) Blood Gas Oxygen Saturation 91 % (90-100) Arterial Blood pH 7.41 (7.380-7.420) Arterial Blood Partial Pressure CO2 26 mmHg (38-42) Arterial Blood Partial Pressure O2 72 mmHg (61-120) Arterial Blood Oxygen Content 16.0 Vol % (12.0-20.0) Arterial Blood Carboxyhemoglobin 1.0 % (0-4) Arterial Blood Methemoglobin 0.9 % (0-2) Blood Gas Hemoglobin 12.4 G/DL (12.0-16.0) Oxygen Delivery Device VENTILATOR Blood Gas Ventilator Setting PRVC / AC / Blood Gas Inspired Oxygen 60 % Imaging Last Impressions Chest X-Ray 08/06/17 0600 Signed Impressions: Service Date/Time: Sunday, August 06, 2017 02:56 - CONCLUSION: 1. Slightly improved bibasilar consolidation and small effusions. 2. No change mild cardiomegaly. Ra Ballard MD Head CT 08/04/17 0000 Signed Impressions: Service Date/Time: July 04:37 - CONCLUSION: 1. Stable intracranial findings including bilateral subdural hematomas, intraventricular blood products, and bilateral temporal lobe hemorrhagic contusions. There is no midline shift or herniation. Ventricles are stable in size. 2. There is new fluid in the mastoid air cells and small air fluid levels bilaterally in the maxillary antra. These changes may be related to intubation. Ra Pulliam MD Lower Extremity Ultrasound 08/02/17 0000 Signed Impressions: Service Date/Time: Wednesday, August 02, 2017 10:40 - CONCLUSION: No evidence of DVT. Danyel Bear MD Renal Ultrasound 08/01/17 0000 Signed Impressions: Service Date/Time: Tuesday, August 01, 2017 14:46 - CONCLUSION: There is no hydronephrosis or stone. Bilateral pleural effusions.. Angel Brown MD FACR Shoulder X-Ray 07/31/17 0000 Signed Impressions: Service Date/Time: Monday, July 31, 2017 14:25 - CONCLUSION: No obvious fracture or dislocation. Degenerative changes. Prasanna Milan MD Cervical Spine CT 07/30/17 1202 Signed Impressions: Service Date/Time: Sunday, July 30, 2017 12:17 - CONCLUSION: 1. Negative for fracture. 2. Degenerative changes consisting of uncinate ridging with neural foramen encroachment without radiographically significant spinal stenosis. 3. Bilateral moderate sized pleural effusions seen on the lower slices through the upper lungs lungs. Angel Brown MD FACR Objective Remarks GENERAL: 82-year-old male currently orotracheally intubated, critically ill hypoxemic SKIN: Warm/dry. Cracked HEAD: Atraumatic. Normocephalic. EYES: Pupils equal right pupil 2 mm left pupil 2 mm reactive to light. Subconjunctival hemorrhage on the right side. No scleral icterus. No injection or drainage. ENT: No nasal bleeding or discharge. Orotracheally intubated. Moderate to severe ET tube secretions NECK: Trachea midline. No JVD. Right IJ hemodialysis catheter is clean dry and intact. CARDIOVASCULAR: Atrial fibrillation with RVR. S1, S2 no S4. Distant. RESPIRATORY: Breath sounds equal bilaterally, with coarse rhonchi diminished at the bases. GASTROINTESTINAL: Abdomen protuberant. Hypoactive bowel sounds are appreciated. : Arellano catheter in place with bloody. Positive scrotal edema MUSCULOSKELETAL: No obvious deformities. Possible lipodermatosclerosis bilateral lower extremities NEUROLOGICAL: Sedated, orally intubated on mechanical ventilation. Withdraws to pain 4 Side: Right Location: Internal, Jugular (Vas cath) A/P Assessment and Plan Neuro/Psych: Acute encephalopathy TBI Bilateral subdural hematomas, intraventricular blood products, and bilateral temporal lobe hemorrhagic contusions Essential tremor Currently on Propofol drip at 40 mcg/min for sedation and ventilator synchrony, Goal of RA SS -2 Daily sedation vacation when hypoxia improved CT brain admission revealed bilateral subdural hematomas, intraventricular hemorrhage in bilateral temporal contusions. Evaluated by neurosurgery/Dr. Horne Status post removal of ICP 08/05 Levetiracetam 500 mg by tube twice daily seizure prophylaxis Acetaminophen 650 mg p.o. every 6 hours as needed fever Currently holding primidone 50 mg twice daily for ET CV: Atrial fibrillation with RVR Chronic diastolic heart failure Mild pulmonary hypertension PVD -stent LAD status post femoropopliteal Currently on nicardipine drip at 15 mg an hour to maintain systolic blood pressure less than 150 Cardizem drip at 15 mg/h for atrial fibrillation with RVR, if heart rate not adequately controlled add amiodarone gtt Continue hydralazine 100 mg every 8 hours, amlodipine 10 mg daily, metoprolol 5 mg IV every 6 hours and terazosin 10 mg daily Continue pravastatin 40 mg daily for dyslipidemia. On simvastatin 20 mg daily home. Holding aspirin 325 daily and clopidogrel 75 daily in light of brain hemorrhage as above, cannot fully anticoagulate for a fib 2D echo revealed The left ventricular systolic function is low normal with an estimated ejection fraction in the range of 50- 55%. Mild pulmonary. hypertension 40 mmHg Home medications include terazosin 10 mg daily, Toprol 50 mg twice daily, losartan 25 mg p.o. daily, Aldactone 25 mg daily, Lasix 80 mg twice daily Currently on furosemide 80 mg IV every 6 8 hours and Diuril 500 mg IV every 12 hours. Hold while on hemodialysis-defer to nephrology Resp: Acute hypoxemic respiratory failure Healthcare associated pneumonia PRVC /06/08/59, change to PC/AC inp pressure 16, iT 1 sec. PEEP 10, FiO2 60 % for ventilator synchrony Ventilator bundle. Albuterol/ipratropium aerosols every 6 hours with albuterol aerosols every 2 hours as needed for dyspnea Sputum culture, broad-spectrum antibiotics with cefepime 1 g every 12, vancomycin [address] of the chest to evaluate effusion/infiltrate GI: Hypoalbuminemia Constipation Gastroesophageal reflux disease Currently on Glucerna 1.5 and 35 cc an hour/recommendations per pharmacy Currently in famotidine for GI prophylaxis. On omeprazole 20 mg daily at home. Docusate sodium/senna 1 tablet twice daily, lactulose 30 cc every 6 hours, polythene glycol 17 g twice daily for bowel regimen. s/p glycerin suppository 1, methylnaltrexone and mineral oil 1 today. KUB today showed normal bowel gas pattern : BPH Holding finasteride 5 mg daily and terazosin 10 mg daily. Resume clinically indicated The arellano catheter has been placed for accurate I's and O's in a critically ill patient with significant scrotal edema Endo: Gout Diabetes mellitus Home medications include glipizide 5 mg twice daily Sliding scale insulin with aspart insulin to maintain euglycemia Resume allopurinol 100 mg daily Renal: Acute kidney failure -5 L with hemodialysis yesterday/Dr. Chavez. Short-term hemodialysis. -Repeat HD planned today Heme: Normocytic anemia Thrombocytopenia Monitor CBC daily. Follow trends On iron sulfate 160 mg daily at home ID: Severe sepsis Healthcare associated pneumonia -Sepsis and pneumonia as indicated by increasing white count increasing ET tube secretions and worsening hypoxia -Started on cefepime and single dose of vancomycin -Send sputum urine and blood cultures FEN: Hypernatremia Replace electrolytes as clinically indicated Access: -Right IJ hemodialysis catheter placed 08/05 Prophylaxis -GI -famotidine -DVT -SCD/heparin subcu CCT 45 min Overnight became more critical with increasing hypoxemic respiratory failure, requiring 60% FiO2 10 of PEEP. Probable healthcare associated pneumonia start cefepime and do single dose of vancomycin. Currently in atrial fibrillation with heart rate in 130s. Started on Cardizem drip, now maxed out at 15 mg per hour, add IV metoprolol, may need amiodarone started. Critically ill now with multiorgan failure Doug Knapp MD Aug 07, 2017 08:00
[2017-08-07] MEDS ORDERED: DILTIAZEM HCL 25 MG/5 ML VIAL IV ONE (08:30)
[2017-08-07] MEDS ORDERED: SODIUM BICARBONATE 8.4% INJ 50 MEQ/50 ML SYR IV PUSH ONE (08:30)
[2017-08-07] MEDS: FAMOTIDINE 20 MG TAB PO SCH ×2 (09:00→20:27)
[2017-08-07] MEDS: ALLOPURINOL 100 MG TAB PO SCH (09:00)
[2017-08-07] MEDS: LACTULOSE SYRUP 20 GM/30 ML CUP PO SCH ×5 (09:00→20:28)
[2017-08-07] MEDS: MAGNESIUM HYDROXIDE SUSP 30 ML CUP PO SCH ×2 (09:00→20:29)
[2017-08-07] MEDS ORDERED: VANCOMYCIN INJ 1,000 MG in SODIUM CHLOR 0.9% 250 ML INJ 250 ML IV ONE (09:00)
[2017-08-07] MEDS: POLYETHYLENE GLYCOL 17 GM PKG NG SCH ×2 (09:00→20:27)
[2017-08-07] MEDS: DOCUSATE SODIUM 50 MG/SENNA 8.6 MG TAB PO SCH ×2 (09:00→20:27)
--- NOTE | 2017-08-07 09:13 | RADRPT ---
EXAM DATE/TIME: 08/07/2017 08:36 [facility] COMPARISON: No previous studies available for comparison. INDICATIONS : Respiratory distress. RADIATION DOSE: 13.72 CTDIvol (mGy) MEDICAL HISTORY : Congestive hearrt failure. Hypertension. diabetes SURGICAL HISTORY : femoral/popliteal bypass ENCOUNTER: Initial ACUITY: 1 day PAIN SCALE: Non-responsive LOCATION: Bilateral chest TECHNIQUE: Volumetric scanning of the chest was performed. Using automated exposure control and adjustment of t he mA and/or kV according to patient size, radiation dose was kept as low as reasonably achievable to obtain optimal diagnostic quality images. DICOM format image data is available electronically for r eview and comparison. Follow-up recommendations for detected pulmonary nodules are based at a minimum on nodule size and pa tient risk factors according to Fleischner Society Guidelines. FINDINGS: LUNGS: Segmental and lobar consolidating airspace disease is identified in both lower lobes. Developing airs pace disease is identified in the left upper lobe. Central airway disease with bronchial wall thicken ing is identified. PLEURAE: Small to moderate bilateral pleural effusions are noted MEDIASTINUM: Heart is mildly enlarged. There is no evidence of pericardial effusion. Endotracheal and nasogastric tubes are in good position. AXILLAE: Within normal limits. No lymphadenopathy. MUSCULOSKELETAL: Within normal limits for patient age. MISCELLANEOUS: The visualized upper abdominal organs demonstrate no acute abnormality. CONCLUSION: 1. Bilateral lower lobe consolidating airspace disease. 2. Small to moderate bilateral pleural effusions. 3. Cardiomegaly. Eliud Gar MD on August 07, 2017 at 9:08 Board Certified Radiologist. This report was verified electronically.
[2017-08-07] MEDS: HEPARIN SODIUM - IV 10,000 UNITS/10 ML VIAL PRN (09:19)
[2017-08-07] MEDS: ALBUMIN 25% INJ 100 ML IV PRN ×2 (09:19→09:41)
[2017-08-07] MEDS: GENTAMICIN SULFATE 20 MG/2 ML VIAL OTHER PRN (09:20)
[2017-08-07] MEDS: CEFEPIME INJ 1,000 MG in SODIUM CHLORIDE 0.9% INJ 100 ML IV SCH ×2 (10:00→20:26)
[2017-08-07] MEDS: TERAZOSIN HCL 1 MG CAP NG SCH ×2 (10:29→20:35)
[2017-08-07] MEDS: PRAVASTATIN SOD 40 MG TAB PO SCH (10:29)
[2017-08-07] MEDS: levETIRAcetam 500 MG/5 ML UDC NG SCH ×2 (10:29→20:27)
--- NOTE | 2017-08-07 13:34 | PD.PROCEDR ---
Central Line Procedure REASON FOR PROCEDURE Central venous access PROCEDURE PERFORMED Central line placement: [Left subclavian ] CONSENT Informed consent for procedure was obtained [ ]. The risks and benefits of the procedure were discussed to include but limited to bleeding, clot formation, infection, and even . ANESTHESIA Local injection of 1% Lidocaine DESCRIPTION OF THE PROCEDURE The patient was placed in supine, mild Trendelenburg position. The area was exposed and cleansed with ChloraPrep, times two. Large sterile drape was used to cover the patient, with the site exposed, under sterile conditions including cap, face mask, sterile gown, and sterile gloves. On single attempt, the introducer needle was inserted with negative pressure in syringe and venous flash was obtained. The guide wire was then advanced without any restriction and the needle was removed. The dilator was used without any complications. Using Seldinger technique the [TLC ] catheter was advanced over the guide wire to a depth of [ 20] centimeters. The guide wire was removed. All ports were aspirated with dark venous blood return and flushed easily with sterile saline. All ports were capped. Antibiotic disc was placed around central line at puncture site. The central line was secured to the skin with two interrupted 2.0 silk sutures. The area was bandaged with sterile see-through central line bandage. RADIOLOGICAL DATA not used. COMPLICATIONS: No apparent complications ESTIMATED BLOOD LOSS: Less than 1 cc. Rebeca Vines MD Aug 07, 2017 13:34
--- NOTE | 2017-08-07 14:06 | PD.CARD.PN ---
Subjective Subjective Remarks Afib with RVR overnight Seen on HD today Heart rates now controlled on Cardizem drip On Cardene drip for BP control Objective Medications Current Medications Medications (Trade) Dose Ordered Sig/Juliet Route Start Time Stop Time Status Last Admin (NS Flush) 2 ml UNSCH PRN IV FLUSH 07/30/17 12:45 08/03/17 09:43 (Zofran Inj) 4 mg Q6H PRN IV PUSH 07/30/17 12:45 08/06/17 18:19 Miscellaneous Information 1 Q361D XX 07/30/17 12:45 (Chlorhexidine 2% Cloth) Taper DAILY@04 TOP 07/31/17 04:00 07/27/18 03:59 08/05/17 03:26 (Chlorhexidine 2% Cloth) 3 pack UNSCH PRN TOP 07/30/17 12:45 (Peridex 0.12% Liq) 15 ml BID@08,20 MT 07/30/17 20:00 08/07/17 08:00 Fentanyl Citrate 250 ml @ 5 mls/hr TITRATE PRN IV 07/30/17 13:30 08/05/17 22:20 Propofol 100 ml @ 2.64 mls/hr TITRATE PRN IV 07/30/17 13:30 08/07/17 10:34 (Pepcid) 10 mg BID PO 07/30/17 21:00 08/06/17 21:28 (Pravachol) 40 mg DAILY PO 07/31/17 09:00 08/07/17 10:29 (D50w (Vial) Inj) 50 ml UNSCH PRN IV PUSH 07/31/17 07:45 (Glucagon Inj) 1 mg UNSCH PRN OTHER 07/31/17 07:45 (Jackelyn-Colace) 1 tab BID PO 08/01/17 21:00 08/06/17 07:57 (Lactulose Liq) 30 ml DAILY PO 08/01/17 16:15 08/06/17 07:56 (Dulcolax Supp) 10 mg DAILY PRN RECTAL 08/01/17 16:15 (NovoLOG SUPPLEMENTAL SCALE) 1 Q6HR SQ 08/01/17 18:00 08/07/17 05:36 (Diuril Inj) 500 mg Q12H IV 08/03/17 01:00 08/07/17 01:56 (Lopressor Inj) 5 mg Q6H IV PUSH 08/04/17 10:00 08/07/17 10:29 (Apresoline Inj) 10 mg Q4HR PRN IV PUSH 08/04/17 12:30 08/07/17 04:12 (Lasix Inj) 80 mg Q8HR IV PUSH 08/04/17 22:00 08/07/17 05:18 (Milk Of Magnesia Liq) 30 ml BID PO 08/05/17 09:00 08/06/17 07:56 (Catapres-Tts 0.3 Mg Patch.7d) 1 patch Q7D T-DERMAL 08/05/17 11:00 08/05/17 11:49 (Reglan Inj) 5 mg Q8HR IV PUSH 08/05/17 14:00 08/07/17 05:18 (Heparin Inj) 5,000 units Q8HR SQ 08/05/17 14:00 08/06/17 06:13 Miscellaneous Information 1 Q7D T-DERMAL 08/12/17 11:00 Sodium Chloride 1,000 ml @ 0 mls/hr Q0M PRN OTHER 08/05/17 13:51 Sodium Chloride 1,000 ml @ 200 mls/hr Q5H PRN IV 08/05/17 13:51 08/06/17 13:21 Sodium Chloride 1,000 ml @ 0 mls/hr Q0M PRN OTHER 08/05/17 13:51 Albumin Human 100 ml @ 60 mls/hr UNSCH PRN IV 08/05/17 14:00 08/07/17 09:41 (NS Flush) 5 ml UNSCH PRN IV FLUSH 08/05/17 14:00 (Heparin Inj) UNSCH PRN .XX 08/05/17 14:00 08/07/17 09:19 (Gentamicin Inj) 20 mg UNSCH PRN OTHER 08/05/17 14:00 08/07/17 09:20 (Zofran Inj) 4 mg UNSCH PRN IV PUSH 08/05/17 14:00 (Tylenol) 650 mg UNSCH PRN PO 08/05/17 14:00 (Benadryl) 25 mg UNSCH PRN PO 08/05/17 14:00 (Nitrostat Sl) 0.4 mg UNSCH PRN SL 08/05/17 14:00 (Catapres) 0.1 mg UNSCH PRN PO 08/05/17 14:00 (Gelfoam 12 Mm/7 Mm Top) 1 foam UNSCH PRN TOP 08/05/17 14:00 Nicardipine HCl 50 mg/Sodium Chloride 500 ml @ 50 mls/hr TITRATE PRN IV 08/06/17 00:15 08/07/17 06:40 (Duoneb Neb) 1 ampule Q6HR NEB NEB 08/06/17 10:00 08/07/17 09:12 (Albuterol Neb) 2.5 mg Q2HR NEB PRN NEB 08/06/17 09:45 (Norvasc) 10 mg DAILY PO 08/07/17 09:00 (Apresoline) 100 mg Q8HR PO 08/06/17 14:00 08/07/17 05:18 (Keppra Liq) 500 mg Q12HR NG 08/06/17 21:00 08/07/17 10:29 (Lactulose Liq) 30 ml QID PO 08/06/17 13:00 08/06/17 13:53 (Miralax) 17 gm BID NG 08/06/17 21:00 (Zyloprim) 100 mg DAILY PO 08/07/17 09:00 (Hytrin) 7 mg BID NG 08/06/17 13:30 08/07/17 10:29 Diltiazem HCl 125 mg/Sodium Chloride 125 ml @ 5 mls/hr TITRATE PRN IV 08/06/17 22:45 08/07/17 00:25 (Lopressor Inj) 2.5 mg Q6H PRN IV PUSH 08/07/17 07:45 Cefepime HCl 1000 mg/Sodium Chloride 100 ml @ 200 mls/hr Q12H IV 08/07/17 10:00 Vital Signs / I&O Vital Signs Date Time Temp Pulse Resp B/P (MAP) Pulse Ox O2 Delivery O2 Flow Rate FiO2 08/07/17 09:07 93 50 08/07/17 08:30 94 100 08/07/17 06:40 133 158/74 08/07/17 06:05 93 60 08/07/17 05:00 128 172/69 08/07/17 04:00 99.0 106 22 158/65 (96) 96 08/07/17 04:00 40 08/07/17 03:36 95 40 08/07/17 02:00 126 156/78 08/07/17 00:55 96 153/65 08/07/17 00:25 109 140/65 08/07/17 00:00 40 08/07/17 00:00 98.4 96 19 144/65 (91) 97 08/06/17 23:30 97 40 08/06/17 23:00 112 08/06/17 23:00 112 08/06/17 22:23 107 151/65 08/06/17 20:01 98 40 08/06/17 20:00 97.5 120 18 150/67 (94) 95 08/06/17 20:00 40 08/06/17 19:24 118 168/72 08/06/17 18:00 111 08/06/17 16:00 98.4 91 19 150/65 (93) 98 08/06/17 16:00 70 08/06/17 16:00 91 08/06/17 15:28 98 40 08/06/17 14:34 77 162/72 I/O 08/06/17 08/06/17 08/06/17 08/07/17 08/07/17 08/07/17 07:00 15:00 23:00 07:00 15:00 23:00 Intake Total 180 ml 1152.1 ml 1360 ml 1000 ml 250 ml Output Total 1100 ml 5000 ml 400 ml 435 ml 3500 ml Balance -920 ml -3847.9 ml 960 ml 565 ml -3250 ml IV Total 1152.1 ml 1000 ml 1000 ml 250 ml Tube Feeding 120 ml 240 ml Tube Irrigant 60 ml 120 ml Output Urine Total 800 ml 400 ml 335 ml Gastric Drainage Total 300 ml 0 ml 100 ml Hemodialysis 5000 ml 3500 ml # Bowel Movements 0 1 1 Physical Exam GENERAL: Intubated and sedated SKIN: Warm and dry. HEAD: Atraumatic. Normocephalic. EYES: Pupils equal and round. No scleral icterus. No injection or drainage. ENT: No nasal bleeding or discharge. Mucous membranes pink and moist. NECK: Trachea midline. No JVD. CARDIOVASCULAR: Regular rate and rhythm. RESPIRATORY: No accessory muscle use. Clear to auscultation. Breath sounds equal bilaterally. GASTROINTESTINAL: Abdomen soft, non-tender, nondistended. Hepatic and splenic margins not palpable. MUSCULOSKELETAL: Extremities without clubbing, cyanosis, or edema. No obvious deformities. NEUROLOGICAL: Unable to determine. ICP monitor in place, pressures 4-13 Laboratory Laboratory Tests Test 08/07/17 04:20 08/07/17 06:35 White Blood Count 14.1 TH/MM3 Red Blood Count 3.32 MIL/MM3 Hemoglobin 9.6 GM/DL Hematocrit 28.8 % Mean Corpuscular Volume 86.8 FL Mean Corpuscular Hemoglobin 28.8 PG Mean Corpuscular Hemoglobin Concent 33.2 % Red Cell Distribution Width 24.0 % Platelet Count 96 TH/MM3 Mean Platelet Volume 10.0 FL Neutrophils (%) (Auto) 85.1 % Lymphocytes (%) (Auto) 4.2 % Monocytes (%) (Auto) 10.1 % Eosinophils (%) (Auto) 0.3 % Basophils (%) (Auto) 0.3 % Neutrophils # (Auto) 12.0 TH/MM3 Lymphocytes # (Auto) 0.6 TH/MM3 Monocytes # (Auto) 1.4 TH/MM3 Eosinophils # (Auto) 0.0 TH/MM3 Basophils # (Auto) 0.0 TH/MM3 CBC Comment AUTO DIFF Differential Comment AUTO DIFF CONFIRMED Tear Drop Cells 1+ Ovalocytes 1+ Blood Urea Nitrogen 53 MG/DL Creatinine 3.16 MG/DL Random Glucose 161 MG/DL Albumin 2.4 GM/DL Calcium Level 8.3 MG/DL Phosphorus Level 5.9 MG/DL Sodium Level 144 MEQ/L Potassium Level 3.4 MEQ/L Chloride Level 107 MEQ/L Carbon Dioxide Level 20.1 MEQ/L Anion Gap 17 MEQ/L Estimat Glomerular Filtration Rate 19 ML/MIN Magnesium Level 2.4 MG/DL Blood Gas Puncture Site LT RADIAL Blood Gas Patient Temperature 98.6 Blood Gas HCO3 16 mmol/L Blood Gas Base Excess -7.7 mmol/L Blood Gas Oxygen Saturation 91 % Arterial Blood pH 7.41 Arterial Blood Partial Pressure CO2 26 mmHg Arterial Blood Partial Pressure O2 72 mmHg Arterial Blood Oxygen Content 16.0 Vol % Arterial Blood Carboxyhemoglobin 1.0 % Arterial Blood Methemoglobin 0.9 % Blood Gas Hemoglobin 12.4 G/DL Oxygen Delivery Device VENTILATOR Blood Gas Ventilator Setting PRVC / AC / Blood Gas Inspired Oxygen 60 % Imaging Last 24 hours Impressions Chest X-Ray 08/07/17 0600 Signed Impressions: Service Date/Time: Monday, August 07, 2017 05:12 - CONCLUSION: No significant change. Ra Ballard MD Abdomen X-Ray 08/07/17 0600 Signed Impressions: Service Date/Time: Monday, August 07, 2017 05:16 - CONCLUSION: Benign- appearing abdomen. Nasogastric tube tip is in the upper stomach. Ra Ballard MD Chest CT 08/07/17 0000 Signed Impressions: Service Date/Time: Monday, August 07, 2017 08:36 - CONCLUSION: 1. Bilateral lower lobe consolidating airspace disease. 2. Small to moderate bilateral pleural effusions. 3. Cardiomegaly. Eliud Gar MD Assessment and Plan Problem List: (1) Major neurocognitive disorder as late effect of traumatic brain injury without behavioral disturbance ICD Codes: S06.9X9S - Unspecified intracranial injury with loss of consciousness of unspecified duration, sequela; F02.80 - Dementia in other diseases classified elsewhere without behavioral disturbance Status: Acute (2) Intracranial bleed ICD Codes: I62.9 - Nontraumatic intracranial hemorrhage, unspecified Status: Acute (3) Edema due to congestive heart failure ICD Codes: I50.9 - Heart failure, unspecified Status: Chronic (4) Hypertensive emergency ICD Codes: I16.1 - Hypertensive emergency Status: Acute (5) CKD (chronic kidney disease) stage 3, GFR 30-59 ml/min ICD Codes: N18.3 - Chronic kidney disease, stage 3 (moderate) Status: Chronic (6) Acute kidney insufficiency ICD Codes: N28.9 - Disorder of kidney and ureter, unspecified Status: Chronic Assessment and Plan 1) Mechanical fall leading in subdural/subarachnoid hemorrhage 2) Benign PVCs Normal function on echo Electrolytes normal range 3) ASA/Plavix stopped for ICH 4) Blood pressure elevated Currently on Cardene drip Hydralazine PRN Hytrin increased by Nephrology 5) Worsening renal function, started on HD 6) Afib with RVR Controlled now on Cardizem drip, will attempt to change to PO once he's stabilized both HR/BP Not an anti-coagulation candidate Aman Lind DO Aug 07, 2017 14:06
--- NOTE | 2017-08-07 14:22 | RADRPT ---
EXAM DATE/TIME: 08/07/2017 13:29 [facility] COMPARISON: CHEST SINGLE AP, August 07, 2017, 5:12. INDICATIONS : Confirm central line placement. MEDICAL HISTORY : Congestive hearrt failure. Hypertension. diabetes SURGICAL HISTORY : femoral/popliteal bypass ENCOUNTER: Subsequent ACUITY: 1 day PAIN SCORE: Non-responsive. LOCATION: Bilateral chest FINDINGS: Basilar airspace disease similar to August 07. Endotracheal tube in good position. NG tip in stomach. Right central line in superior vena cava. Left central line also in superior vena cava. No pneumothor ax. CONCLUSION: 1. Right and left central lines in superior vena cava. No pneumothorax. Stable basilar airspace disea se. Endotracheal tube and nasogastric tube unchanged. Charles Neal MD on August 07, 2017 at 14:18 Board Certified Radiologist. This report was verified electronically.
--- NOTE | 2017-08-07 14:26 | HHI.NPPN ---
Subjective History of Present Illness This patient is an 82-year-old male who unfortunately cannot provide any history secondary to head injury, intubated status on a ventilator. History obtained from records and from his daughter. Limited history available. Family patient has a history suggesting peripheral vascular disease, congestive heart failure, chronic lower extremity edema with dyspnea, chronic renal sufficiency?. According to the patient's daughter he was hospitalized back in 2013 at [facility]. Developed a ruptured appendix post colonoscopy subsequently developing acute renal failure and requiring laparotomy. According to the patient's daughter he was on dialysis temporarily. Not following up with a profiler hand routinely in recent times. They cannot recall name of his primary care physician currently also. Patient apparently fell short distance from a ladder and hit his head and subsequently has been diagnosed as having a subdural as well as subarachnoid hemorrhage. Creatinine was elevated at the time of presentation at 1.5 and chest x-ray showed evidence of congestive heart failure and the patient had a hemoglobin that was only 7.4. Echocardiogram performed July 31, 2017 revealed an ejection fraction of 50-55%. Patient's albumin on presentation his low with a low corrected calcium 7.8. Interval History Patient was intubated on ventilatory support. Review of Systems General General Remarks Unable to obtain Objective Data Data 08/07/17 08/08/17 19:00 07:00 Intake Total 250 ml Output Total 3500 ml Balance -3250 ml IV Total 250 ml Hemodialysis 3500 ml Vital Signs Date Time Temp Pulse Resp B/P (MAP) Pulse Ox O2 Delivery O2 Flow Rate FiO2 08/07/17 09:07 93 50 08/07/17 08:30 94 100 08/07/17 06:40 133 158/74 08/07/17 06:05 93 60 08/07/17 05:00 128 172/69 08/07/17 04:00 99.0 106 22 158/65 (96) 96 08/07/17 04:00 40 08/07/17 03:36 95 40 08/07/17 02:00 126 156/78 08/07/17 00:55 96 153/65 08/07/17 00:25 109 140/65 08/07/17 00:00 40 08/07/17 00:00 98.4 96 19 144/65 (91) 97 08/06/17 23:30 97 40 08/06/17 23:00 112 3/10/18 23:00 112 08/06/17 22:23 107 151/65 08/06/17 20:01 98 40 08/06/17 20:00 97.5 120 18 150/67 (94) 95 08/06/17 20:00 40 08/06/17 19:24 118 168/72 08/06/17 18:00 111 08/06/17 16:00 98.4 91 19 150/65 (93) 98 08/06/17 16:00 70 08/06/17 16:00 91 08/06/17 15:28 98 40 08/06/17 14:34 77 162/72 -: 08/07/17 0420 08/07/17 0420 Microbiology 08/07/17 Aerobic Blood Culture, Received Pending 08/07/17 Anaerobic Blood Culture, Received Pending 08/07/17 Aerobic Blood Culture, Received Pending 08/07/17 Anaerobic Blood Culture, Received Pending 08/07/17 Urine Culture, Received Pending Physical Exam General Appearance: Comfortable, Obese Appearance Remarks ET tube in place. Eyes Eye Exam: Sclera White Pulmonary Resp Exam: Breath Sounds Equal, No Distress, Decreased Bases Cardiology CV Exam: Regular, Normal Sinus Rhythm Gastrointestinal/Abdomen GI Exam: Non-Tender, Distended Extremeties Extremities Exam: Moderate Edema (significantly improved with dialysis.), Pitting Edema, Dependent Edema (diffuse edema involving all extremities, hips and dependent torso.) Neurologic Neuro Exam: Sedated Assessment/Plan Discussed Condition With: Son, Daughter, Relative Problem List: (1) Acute kidney insufficiency ICD Codes: N28.9 - Disorder of kidney and ureter, unspecified Status: Chronic Plan: Patient has completed his 3rd dialysis session today. Family as mentioned in my previous note wishes to continue with dialytic support for the 5-6 days in the hope that his neurological status will improve. If no improvement they have indicated that they will consider comfort care. Electrolytes and acid-base status have improved with dialysis. Noted patient on propofol but low-dose so propofol infusion syndrome which is rare is unlikely. CPK level be checked however. If the patient require dialysis long-term with no improvement in neurological state requiring PEG and trach and the family wishes continue same he will likely require institutionalization in a long-term care facility which could provide dialytic services most likely out of town. Medications should be adjusted for the patient's estimated GFR if clinically indicated. Avoid agents with significant potential for nephrotoxicity possible including NSAIDs for analgesia, iodine contrast agents. Gadolinium is contraindicated if the GFR is below 30. (2) CKD (chronic kidney disease) stage 3, GFR 30-59 ml/min ICD Codes: N18.3 - Chronic kidney disease, stage 3 (moderate) Status: Chronic Plan: Baseline renal function unknown. Patient currently has a history of chronic lower extremity edema and dyspnea. Unfortunately previous records not available but I suspect that the patient has a component of chronic CHF. 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 Also previous history of acute renal failure may have resulted in significant deterioration in his baseline renal function but those records are not available to me currently. (3) Congestive heart failure ICD Codes: I50.9 - Heart failure, unspecified Status: Chronic Plan: Continue furosemide and Diuril as ordered. Monitor response. Most likely has some degree of diastolic dysfunction as EF was reported as being 50-55%. (4) Edema due to congestive heart failure ICD Codes: I50.9 - Heart failure, unspecified Status: Chronic Plan: In addition patient does have evidence of hypoalbuminemia. Need to determine as the patient has significant proteinuria. UPCR pending (5) Major neurocognitive disorder as late effect of traumatic brain injury without behavioral disturbance ICD Codes: S06.9X9S - Unspecified intracranial injury with loss of consciousness of unspecified duration, sequela; F02.80 - Dementia in other diseases classified elsewhere without behavioral disturbance Status: Acute (6) Hyperkalemia ICD Codes: E87.5 - Hyperkalemia Status: Resolved Plan: Resolved with dialysis. (7) HTN (hypertension) ICD Codes: I10 - Essential (primary) hypertension Plan: The pressure still significantly elevated. On multiple classes of hypertensive medications. Would like to try to avoid using an angiotensin receptor stacie and MATTY inhibitor for the present in the setting of his acute renal insufficiency. Will increase Hytrin to twice a day dosing and titrate upward as indicated. Problem Qualifiers (1) Congestive heart failure: Qualified Codes: I50.9 - Heart failure, unspecified Michell Chavez MD Aug 07, 2017 14:26
--- NOTE | 2017-08-07 16:45 | HHI.CCPN ---
Subjective Brief History [place]: This is a 82-year-old gentleman who fell backwards off of a ladder with brief loss of consciousness and brief round of CPR at the scene was brought in as a level II trauma alert intubated in the trauma bay and upgraded to level I. He was found to have subdural and subarachnoid hemorrhages and was given 2 units of platelets for platelet dysfunction secondary to Plavix use. Final injuries: Right temporal intraparenchymal hemorrhage with slight subdural component Left frontoparietal and temporo-occipital subdural hematoma about 1 cm thick Patient has complex history of CHF,coronary artery disease, diabetes mellitus and chronic renal insufficiency requiring dialysis in 2013. Since then patient has been off dialysis but at this point creatinine is rising. 24 Hour Review/Hospital Course 07/[address] appears to be worse today with slight increase in the size of his bleeds Is currently on a Cardene drip to maintain systolic blood pressure less than 160 , his beta stacie has been held for a heart rate in the mid 50s 08/01/2017 Patient is intubated ventilated on propofol and fentanyl ICP measurements about 5-8 mmHg Remains sedated not moving any extremities at this time Hemodynamically patient is stable with hypertension. Patient is noted to be hypertensive from home and some of medications have been reinstituted In addition to Lopressor and hydralazine patient is currently on Cardene drip in order to keep systolic blood pressure under 160 mmHg Patient will need Catapres patch in order to wean off Cardene In face of increased creatinine and BUN patient did not have IV contrast to assess the chest and abdomen but externally there are no signs of trauma to either Renal function as above noted is impaired with rising creatinine and BUN. Nephrology consult from Dr. Chavez is greatly appreciated Patient will be managed expectantly and as the neurologic function improves sedation will be gradually weaned It should be noted that severe brain trauma in this age group with related medical problems survival is very low and patient is a high mortality probably in the range of 80-90%. 08/02/2017 Patient remains intubated ventilated and sedated with all neuroprotective measures Hemodynamically patient is stable and hypertensive on several antihypertensive drugs including Cardene noted to keep systolic blood pressure under 160 mmHg Bilateral breath sounds remains ventilatory dependent in the face of decreased level of consciousness On assist control ventilation 40% FiO2 Abdomen soft nontender will start on enteral feedings Nephrology help is greatly appreciated in the care of this patient with marginal renal function and he may need intermittent dialysis should his fluid status worsened and he becomes fluid overloaded 08/03/17 severe TBI on elderly patient with multiple medical issues PRINCE superimposed on chronic renal failure compensated metabolic acidosis secondary due to renal failure diuresis initiated by individual small group instructor zafar for BP control 08/04/2018 Patient this point is off sedation however there is no appreciable neurologic function except for some movement of upper extremities [place] Coma Scale 4 Hemodynamically patient is stable however quite hypertensive on multiple medications and even on Cardene drip difficulty controlling systolic blood pressure Cardiology help is greatly appreciated. Cardiac function intact and no signs of contusion or acute injury to the heart Bilateral breath sounds decreased over the right base were patient has a infiltrate in the right lower lobe Remains on assist control ventilation fully supported not breathing over the respirator but with good PO2 FiO2 gradient Abdomen is soft and enteral feeds of tolerated Renal function is gradually deteriorating and patient had underlying renal insufficiency prior to this event. He was on dialysis few years ago in an unrelated episode. At this point in discussions with family there is some ambiguity about which way to go. This patient has 90% mortality in 100% morbidity and most likely in the best case scenario patient will require tracheostomy feeding tube and will remain bedridden permanently 08/05/2017 PTD: 6 Mechanically ventilated and sedated Patient remains hypertensive on max Cardene. Increased clonidine patch and added Norvasc. Will have meeting with family to discuss plan of care and decision on whether to progress to dialysis. 08/06/2017 PTD: 7 Patient remains mechanically ventilated and sedated. Remains hypertensive despite numerous agents. Currently on second session of dialysis. 08/07/17 Vomited overnight and likely aspirated Respiratory distress with increased Fio2 requirements overnight Maxed out on Cardene and Cardizem gtts Getting dialysis during visit Objective Vital Signs Date Time Temp Pulse Resp B/P (MAP) Pulse Ox O2 Delivery O2 Flow Rate FiO2 08/07/17 15:16 100 50 08/07/17 15:00 58 08/07/17 12:00 98.1 16 129/58 (81) Intake and Output 08/07/17 08/07/17 08/08/17 08:00 16:00 00:00 Intake Total 1000 ml 250 ml Output Total 435 ml 3500 ml Balance 565 ml -3250 ml Result Diagram: 08/07/17 0420 08/07/17 0420 Other Results Laboratory Tests Test 08/07/17 06:35 Blood Gas Puncture Site LT RADIAL Blood Gas Patient Temperature 98.6 Blood Gas HCO3 16 mmol/L (22-26) Blood Gas Base Excess -7.7 mmol/L (-2-2) Blood Gas Oxygen Saturation 91 % (90-100) Arterial Blood pH 7.41 (7.380-7.420) Arterial Blood Partial Pressure CO2 26 mmHg (38-42) Arterial Blood Partial Pressure O2 72 mmHg (61-120) Arterial Blood Oxygen Content 16.0 Vol % (12.0-20.0) Arterial Blood Carboxyhemoglobin 1.0 % (0-4) Arterial Blood Methemoglobin 0.9 % (0-2) Blood Gas Hemoglobin 12.4 G/DL (12.0-16.0) Oxygen Delivery Device VENTILATOR Blood Gas Ventilator Setting PRVC / AC / Blood Gas Inspired Oxygen 60 % Imaging Last 24 hours Impressions Chest X-Ray 08/07/17 1318 Signed Impressions: Service Date/Time: Monday, August 07, 2017 13:29 - CONCLUSION: 1. Right and left central lines in superior vena cava. No pneumothorax. Stable basilar airspace disease. Endotracheal tube and nasogastric tube unchanged. Charles Neal MD Chest X-Ray 08/07/17 0600 Signed Impressions: Service Date/Time: Monday, August 07, 2017 05:12 - CONCLUSION: No significant change. Ra Ballard MD Abdomen X-Ray 08/07/17 0600 Signed Impressions: Service Date/Time: Monday, August 07, 2017 05:16 - CONCLUSION: Benign- appearing abdomen. Nasogastric tube tip is in the upper stomach. Ra Ballard MD Chest CT 08/07/17 0000 Signed Impressions: Service Date/Time: Monday, August 07, 2017 08:36 - CONCLUSION: 1. Bilateral lower lobe consolidating airspace disease. 2. Small to moderate bilateral pleural effusions. 3. Cardiomegaly. Eliud Gar MD Objective Remarks GENERAL: 82-year-old critically ill male lying in bed, sedated and intubated. SKIN: Warm and dry. HEAD: Normocephalic. ICP bolt in place. ENT: ETT. No nasal bleeding or discharge. Mucous membranes pink and moist. NECK: Trachea midline. No JVD. RIJ vascath. CARDIOVASCULAR: Regular rate and rhythm. CM show sinus rhythm. RESPIRATORY: Mechanically ventilated. Lungs are clear and diminished to auscultation. Breath sounds equal bilaterally. GASTROINTESTINAL: Abdomen soft, non-tender, nondistended. + BS. OGT to LIWS. GENITOURINARY: Dockery catheter in place draining dark-colored urine to bedside drainage bag. MUSCULOSKELETAL: Extremities without cyanosis, generalized +2 edema noted. + perfused. Warm with good capillary refill . NEUROLOGICAL: Mechanically ventilated and sedated. Withdraws from noxious stimuli x 4 extremities. Vascular Central Line Catheter Side: Right Location: Internal, Jugular (Vas cath) Assessment and Plan Assessment: (1) Congestive heart failure ICD Code: I50.9 - Heart failure, unspecified Status: Chronic (2) Anemia ICD Code: D64.9 - Anemia, unspecified Status: Chronic (3) Acute kidney insufficiency ICD Code: N28.9 - Disorder of kidney and ureter, unspecified Status: Chronic (4) Respiratory failure ICD Code: J96.90 - Respiratory failure, unspecified, unspecified whether with hypoxia or hypercapnia Status: Acute (5) CKD (chronic kidney disease) stage 3, GFR 30-59 ml/min ICD Code: N18.3 - Chronic kidney disease, stage 3 (moderate) Status: Chronic (6) Unresponsive ICD Code: R41.89 - Other symptoms and signs involving cognitive functions and awareness Status: Acute (7) Intracranial bleed ICD Code: I62.9 - Nontraumatic intracranial hemorrhage, unspecified Status: Acute (8) Hypertensive emergency ICD Code: I16.1 - Hypertensive emergency Status: Acute (9) Edema due to congestive heart failure ICD Code: I50.9 - Heart failure, unspecified Status: Chronic (10) Dyspnea ICD Code: R06.00 - Dyspnea, unspecified Status: Acute (11) Traumatic brain injury ICD Code: S06.9X9A - Unspecified intracranial injury with loss of consciousness of unspecified duration, initial encounter Status: Acute (12) Major neurocognitive disorder as late effect of traumatic brain injury without behavioral disturbance ICD Code: S06.9X9S - Unspecified intracranial injury with loss of consciousness of unspecified duration, sequela; F02.80 - Dementia in other diseases classified elsewhere without behavioral disturbance Status: Acute Plan [place]: 82-year-old male who sustained a fall. He fell off a ladder approximately 10 feet, striking his head. + LOC. Short period of CPR and then the patient woke up, confused with unequal pupils. GCS 13. Systolic blood pressure = 200. Patient is on Plavix. INJURIES: Temporal SAH RIGHT temporal SDH ?Aspiration PMHx: CHF, HTN, DM, CRF, HLD, PVD, Perforated appendix- sepsis (2 years ago) Procedures: 07/30: Intubated 07/30 - 08/05 [place] NEUROLOGICAL: -Temporal SAH, RIGHT temporal SDH Neurosurgery consulted Sedated and mechanically ventilated Propofol for sedation Daily sedation vacations Goal RASS score of -2 Serial neuro checks 08/04: CT Brain - stable 08/01: CT brain - stable 07/31: CT brain - increase L SDH. Increase R temporal hemorrhage 07/30 - 08/05: ICP bolt placement Seizure precautions PO Keppra BID HOB elevated 30 degrees Hypernatremia status - 144 CARDIOVASCULAR: Cardiology consulted Patient with history of CHF, HTN, HLD, PVD Continues with Cardene and Cardizem gtts- maxed out Lopressor 5 mg IV q6 hours Hydralazine 100 mg PO BID Hytrin 7 mg PO BID Catapres patch 0.3 mg Norvasc 10 mg PO QD Diuretics - Lasix 80 IV q 8H. 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 07/30: Intubated Likely aspirated overnight IV Abx: Maxipime Vent bundle CT chest today shows bilateral lower lobe consolidation Patient will need tracheostomy if family decides to continue with aggressive care Palliative care consulted to assist family with goals of care Casbs VAP protocol in place - Follow-up Labs tomorrow CXR PRN GASTROINTESTINAL: Not tolerating tube feeding Gastric residual > 1000 mL overnight OGT to LIWS TF on hold Patient will need PEG placement Bowel regimen Reglan 5 mg q 8h for increased residuals RENAL: Optimization Analyst consulted Patient with history of chronic renal failure Strict I&O LASIX 80 IV q 8H. Diuril 500mg BID - per nephrology Hemodialysis per nephrology Hematuria with clots requiring PRN Dockery irrigation 08/01: US kidney - no hydronephrosis ENDOCRINE: Patient with history of DM SSI q 6h HEMATOLOGY: Patient with a history of chronic anemia Does not meet transfusion trigger this time 08/02: US Lower extremity study - NEGATIVE for DVT ID: Low-grade temps No leukocytosis Likely aspirated overnight IV Abx: Maxipime LINES: 07/30: ETT 07/30: OGT 08/05: R IJ vas cath 08/07: L SC TLC 07/30: Dockery PROPHYLAXIS: VAP - protocol in place GI - Pepcid 10 mg BID DVT - Mechanical VTE with SCDs. SQ heparin held due to hematuria SKIN: Warm and dry Generalized edema Plan of care discussed with RN at bedside. Collaborating trauma Sapna agrees with plan. Case management consulted to assist with discharge planning. Problem Qualifiers (1) Congestive heart failure: Qualified Codes: I50.9 - Heart failure, unspecified (2) Anemia: Qualified Codes: D64.9 - Anemia, unspecified (3) Respiratory failure: Qualified Codes: J96.00 - Acute respiratory failure, unspecified whether with hypoxia or hypercapnia (4) Dyspnea: Qualified Codes: R06.00 - Dyspnea, unspecified (5) Traumatic brain injury: Inna Romero Aug 07, 2017 16:45
--- NOTE | 2017-08-07 18:54 | HHI.NSPN ---
Note Status Status: Progress Note Interval History Interval History This is an 82-year-old gentleman who fell backwards off of a ladder approximately 10 feet. He underwent a brief round of CPR but was found to be spontaneously breathing so it was stopped patient was brought in the trauma bay hypertensive and confused he was intubated in the trauma bay. No seizure activity reported. No tongue biting. No incontinence of stool or urine. No tonic-clonic movements. He had unequal pupils and a coffee-ground emesis prior to intubation. He was upgraded to a level I trauma alert. He was resuscitated according to the ATLS protocol and full trauma workup was carried down. He was found to have right subarachnoid hemorrhage as well as subdural hematoma. He was given 2 units of platelets that for his platelet insufficiency due to Plavix. He was moving his extremities. Neurosurgical consultation was requested 07/31/17. Remains intubated and sedated. ICP monitor in place. A follow-up CT of the brain was obtained 08/06 remains mechanically ventilated and sedated. Remains hypertensive despite numerous agents. Currently on second session of dialysis. 08/07. He vomited overnight and likely aspirated. Respiratory distress with increased Fio2 requirements. Maximal dose Cardene and Cardizem drips. Getting dialysis today Labs, Micro, & Vital Signs Results Date Time Temp Pulse Resp B/P (MAP) Pulse Ox O2 Delivery O2 Flow Rate FiO2 08/07/17 16:00 50 08/07/17 16:00 98.1 60 12 110/54 (72) 98 08/07/17 15:16 100 50 08/07/17 15:00 58 08/07/17 15:00 58 08/07/17 12:00 98.1 92 16 129/58 (81) 97 08/07/17 12:00 50 08/07/17 09:07 93 50 08/07/17 08:30 94 100 08/07/17 08:00 99.3 121 24 138/59 (85) 95 08/07/17 08:00 50 08/07/17 07:00 126 08/07/17 07:00 126 3/11/18 06:40 133 158/74 08/07/17 06:05 93 60 08/07/17 05:00 128 172/69 08/07/17 04:00 99.0 106 22 158/65 (96) 96 08/07/17 04:00 40 08/07/17 03:36 95 40 08/07/17 02:00 126 156/78 08/07/17 00:55 96 153/65 08/07/17 00:25 109 140/65 08/07/17 00:00 40 08/07/17 00:00 98.4 96 19 144/65 (91) 97 08/06/17 23:30 97 40 08/06/17 23:00 112 08/06/17 23:00 112 08/06/17 22:23 107 151/65 08/06/17 20:01 98 40 08/06/17 20:00 97.5 120 18 150/67 (94) 95 08/06/17 20:00 40 08/06/17 19:24 118 168/72 08/08/17 07:00 Intake Total 250 ml Output Total 3500 ml Balance -3250 ml Constitutional Vital Signs Date Time Temp Pulse Resp B/P (MAP) Pulse Ox O2 Delivery O2 Flow Rate FiO2 08/07/17 16:00 50 08/07/17 16:00 98.1 60 12 110/54 (72) 98 08/07/17 15:16 100 50 08/07/17 15:00 58 08/07/17 15:00 58 08/07/17 12:00 98.1 92 16 129/58 (81) 97 08/07/17 12:00 50 08/07/17 09:07 93 50 08/07/17 08:30 94 100 08/07/17 08:00 99.3 121 24 138/59 (85) 95 08/07/17 08:00 50 08/07/17 07:00 126 08/07/17 07:00 126 08/07/17 06:40 133 158/74 08/07/17 06:05 93 60 08/07/17 05:00 128 172/69 08/07/17 04:00 99.0 106 22 158/65 (96) 96 08/07/17 04:00 40 08/07/17 03:36 95 40 08/07/17 02:00 126 156/78 3/11/18 00:55 96 153/65 08/07/17 00:25 109 140/65 08/07/17 00:00 40 08/07/17 00:00 98.4 96 19 144/65 (91) 97 08/06/17 23:30 97 40 08/06/17 23:00 112 08/06/17 23:00 112 08/06/17 22:23 107 151/65 08/06/17 20:01 98 40 08/06/17 20:00 97.5 120 18 150/67 (94) 95 08/06/17 20:00 40 08/06/17 19:24 118 168/72 08/08/17 07:00 Intake Total 250 ml Output Total 3500 ml Balance -3250 ml Physical Exam Mr. Alonzo is intubated and minimally sedated, he has minimal eyes opening when suctioned. Does not open eyes to void. he does not follow commands. Head: Right bolt site with steri strips in place, dry. Cranial Nerves: Pupils right 2mm, left 3 mm round. Cervical Spine: soft, supple Motor: not following commands for testing, minimal withdraw in feet bilaterally , no response to pain in upper extremities. diffuse extremity swelling Sensory: minimal response to painful stimuli in feet Cerebellar: cannot be adequately assessed due to the patient's neurological condition. Heart: regular rate, rhythm Resp: clear, mechanically ventilated Skin: warm, dry Medications Current Medications Current Medications Ondansetron HCl (Zofran Inj) 4 mg STK-MED ONCE .ROUTE ; Start 07/30/17 at 11:55; Stop 07/30/17 at 11:56; Status DC Propofol 100 ml @ As Directed STK-MED ONCE .ROUTE ; Start 07/30/17 at 12:04; Stop 07/30/17 at 12:05; Status DC Nicardipine HCl (Cardene Inj) 25 mg STK-MED ONCE .ROUTE ; Start 07/30/17 at 12:08 ; Stop 07/30/17 at 12:09; Status DC Sodium Chloride 1,000 ml @ 60 mls/hr [id number] IV Last administered on 08/01/17at 08:45; Start 07/30/17 at 12:31; Stop 08/01/17 at 11:50; Status DC Sodium Chloride (NS Flush) 2 ml UNSCH PRN IV FLUSH FLUSH AFTER USING IV ACCESS Last administered on 08/03/17at 09:43; Start 07/30/17 at 12:45 Ondansetron HCl (Zofran Inj) 4 mg Q6H PRN IV PUSH NAUSEA OR VOMITING Last administered on 08/06/17at 18:19; Start 07/30/17 at 12:45 Multivitamins 10 ml/Thiamine HCl 100 mg/Folic Acid 1 mg/Sodium Chloride 511.2 ml @ 125 mls/hr Q24H IV Last administered on 08/01/17at 15:19; Start 07/30/17 at 15:00; Stop 08/01/17 at 19:06; Status DC Docusate Sodium (Colace) 100 mg BID PO Last administered on 08/01/17at 08:44; Start 07/30/17 at 21:00; Stop 08/01/17 at 16:11; Status DC Magnesium Hydroxide (Milk Of Magnesia Liq) 30 ml Q6H PRN PO CONSTIPATION; Start 07/30/17 at 12:45; Stop 08/01/17 at 16:11; Status DC Miscellaneous Information 1 Q361D XX ; Start 07/30/17 at 12:45 Chlorhexidine Gluconate (Chlorhexidine 2% Cloth) Taper DAILY@04 TOP Last administered on 08/05/17at 03:26; Start 07/31/17 at 04:00; Stop 07/27/18 at 03:59 Chlorhexidine Gluconate (Chlorhexidine 2% Cloth) 3 pack UNSCH PRN TOP HYGIENIC CARE; Start 07/30/17 at 12:45 Propofol 100 ml @ 0 mls/hr TITRATE PRN IV SEDATION; Start 07/30/17 at 13:00; Stop 07/30/17 at 13:30; Status DC Chlorhexidine Gluconate (Peridex 0.12% Liq) 15 ml BID@08,20 MT Last administered on 08/07/17at 08:00; Start 07/30/17 at 20:00 Propofol 100 ml @ 0 mls/hr TITRATE PRN IV SEDATION; Start 07/30/17 at 13:00; Stop 07/30/17 at 13:00; Status DC Fentanyl Citrate 250 ml TITRATE PRN IV SEDATION; Start 07/30/17 at 13:00; Stop 07/30/17 at 13:00; Status DC Fentanyl Citrate 250 ml TITRATE PRN IV SEDATION; Start 07/30/17 at 13:00; Stop 07/30/17 at 13:30; Status DC Albuterol/ Ipratropium (Duoneb Neb) 1 ampule Q6HR NEB NEB Last administered on 08/02/17at 20:40; Start 07/30/17 at 16:00; Stop 08/02/17 at 20:55; Status DC Diphtheria/ Tetanus/Acell Pertussis (Boostrix Inj) 0.5 ml STK-MED ONCE IM ; Start 07/30/17 at 12:58; Stop 07/30/17 at 12:59; Status DC Etomidate (Amidate Inj) 20 mg STK-MED ONCE .ROUTE ; Start 07/30/17 at 13:01; Stop 07/30/17 at 13:02; Status DC Succinylcholine Chloride (Quelicin Inj) 200 mg STK-MED ONCE .ROUTE ; Start at 13:01; Stop 07/30/17 at 13:02; Status DC Fentanyl Citrate 250 ml @ 5 mls/hr TITRATE PRN IV Sedation Last administered on 08/05/17at 22:20; Start 07/30/17 at 13:30; Stop 08/07/17 at 16:32; Status DC Propofol 100 ml @ 2.64 mls/hr TITRATE PRN IV SEDATION Last administered on 04/16at 18:25; Start 07/30/17 at 13:30 Famotidine (Pepcid) 10 mg BID PO Last administered on 08/06/17at 21:28; Start at 21:00 Nicardipine HCl 25 mg/Sodium Chloride 250 ml @ 50 mls/hr TITRATE PRN IV Blood pressure management Last administered on 08/05/17at 22:23; Start 07/30/17 at 16:15 ; Stop 08/06/17 at 00:11; Status DC Spironolactone (Aldactone) 25 mg DAILY PO Last administered on 08/01/17at 08:44; Start 07/31/17 at 09:00; Stop 08/01/17 at 09:54; Status DC Pravastatin Sodium (Pravachol) 40 mg DAILY PO Last administered on 08/07/17at 10 :29; Start 07/31/17 at 09:00 Metoprolol Tartrate (Lopressor) 25 mg Q12HR PO Last administered on 08/03/17at 20 :33; Start 07/31/17 at 09:00; Stop 08/04/17 at 09:36; Status DC Hydralazine HCl (Apresoline) 25 mg Q12HR PO Last administered on 07/31/17at 07:42 ; Start 07/31/17 at 09:00; Stop 07/31/17 at 09:00; Status DC Furosemide (Lasix Inj) 40 mg BID@,18 IV PUSH Last administered on 08/02/17at 10 :33; Start 07/31/17 at 09:00; Stop 08/02/17 at 13:29; Status DC Dextrose (D50w (Vial) Inj) 50 ml UNSCH PRN IV PUSH HYPOGLYCEMIA-SEE COMMENTS; Start 07/31/17 at 07:45 Glucagon (Glucagon Inj) 1 mg UNSCH PRN OTHER HYPOGLYCEMIA-SEE COMMENTS; Start 07/31/17 at 07:45 Insulin Aspart (NovoLOG SUPPLEMENTAL SCALE) 1 Q6H SQ ; Start 07/31/17 at 07:45; Stop 08/01/17 at 17:31; Status DC Sodium Chloride 250 ml @ 15 mls/hr ONCE ONCE IV Last administered on at 10:55; Start 07/31/17 at 08:15; Stop 08/01/17 at 00:54; Status DC Terazosin HCl (Hytrin) 10 mg HS PO Last administered on 08/05/17at 20:12; Start 07/31/17 at 21:00; Stop 08/06/17 at 13:26; Status DC Hydralazine HCl (Apresoline) 100 mg Q12HR PO Last administered on 08/05/17at 20: 13; Start 07/31/17 at 09:00; Stop 08/06/17 at 09:42; Status DC Levetriacetam 500 mg/Sodium Chloride 105 ml @ 420 mls/hr Q12HR IV Last administered on 08/06/17at 07:57; Start 08/01/17 at 10:00; Stop 08/06/17 at 09:42 ; Status DC Dextrose 1,000 ml @ 42 mls/hr [id number] IV Last administered on 08/01/17at 13:09; Start 08/01/17 at 12:00; Stop 08/01/17 at 16:51; Status DC Chlorothiazide Sodium (Diuril Inj) 250 mg Q12H IV Last administered on at 13:15; Start 08/01/17 at 13:00; Stop 08/02/17 at 13:29; Status DC Clonidine (Catapres-Tts 0.2 Mg Patch.7d) 1 patch Q7D T-DERMAL ; Start 08/01/17 at 13:30; Stop 08/01/17 at 15:09; Status DC Clonidine (Catapres-Tts 0.2 Mg Patch.7d) 1 patch Q7D T-DERMAL ; Start 08/01/17 at 16:00; Stop 08/01/17 at 17:30; Status DC Miscellaneous Information 1 Q7D T-DERMAL ; Start 08/08/17 at 16:00; Stop at 16:00; Status DC Senna/Docusate Sodium (Jackelyn-Colace) 1 tab BID PO Last administered on at 07:57; Start 08/01/17 at 21:00 Lactulose (Lactulose Liq) 30 ml DAILY PO Last administered on 08/06/17at 07:56; Start 08/01/17 at 16:15 Bisacodyl (Dulcolax Supp) 10 mg DAILY PRN RECTAL Constipation; Start 08/01/17 at 16:15 Clonidine (Catapres-Tts 0.2 Mg Patch.7d) 1 patch Q7D T-DERMAL Last administered on 08/01/17at 20:31; Start 08/01/17 at 20:00; Stop 08/05/17 at 09:18; Status DC Miscellaneous Information 1 Q7D T-DERMAL ; Start 08/01/17 at 20:00; Stop 08/05/17 at 09:18; Status DC Insulin Aspart (NovoLOG SUPPLEMENTAL SCALE) 1 Q6HR SQ Last administered on 08/07at 05:36; Start 08/01/17 at 18:00 Sodium Bicarbonate (Sodium Bicarbonate 8.4% Inj) 50 meq UNSCH X1 IV Last administered on 08/02/17at 05:41; Start 08/02/17 at 05:45; Stop 08/02/17 at 08:20; Status DC Chlorothiazide Sodium (Diuril Inj) 500 mg Q12H IV Last administered on 14:44; Start 08/03/17 at 01:00 Furosemide (Lasix Inj) 80 mg BID@,18 IV PUSH Last administered on 08/04/17at 18 :34; Start 08/02/17 at 18:00; Stop 08/04/17 at 19:28; Status DC Albuterol/ Ipratropium (Duoneb Neb) 1 ampule Q6HR NEB NEB Last administered on 08/06/17 07:52; Start 08/02/17 at 22:00; Stop 08/06/17 at 09:35; Status DC Metoprolol Tartrate (Lopressor Inj) 5 mg Q6H IV PUSH Last administered on at 10:29; Start 08/04/17 at 10:00 Hydralazine HCl (Apresoline Inj) 10 mg Q4HR PRN IV PUSH SBP>160, DBP>90 Last administered on 08/07/17at 04:12; Start 08/04/17 at 12:30 Furosemide (Lasix Inj) 80 mg Q8HR IV PUSH Last administered on 08/07/17 14:28 ; Start 08/04/17 at 22:00 Sodium Bicarbonate (Sodium Bicarbonate 8.4% Inj) 100 meq STK-MED ONCE .ROUTE Last administered on 08/05/17 05:25; Start 08/05/17 at 05:25; Stop 08/05/17 at 05: 26; Status DC Bisacodyl (Dulcolax Supp) 10 mg ONCE ONCE RECTAL Last administered on 08:03; Start 08/05/17 at 07:45; Stop 08/05/17 at 07:46; Status DC Magnesium Hydroxide (Milk Of Magnesia Liq) 30 ml BID PO Last administered on 07:56; Start 08/05/17 at 09:00 Clonidine (Catapres-Tts 0.3 Mg Patch.7d) 1 patch Q7D T-DERMAL Last administered on 08/05/17at 11:49; Start 08/05/17 at 11:00 Metoclopramide HCl (Reglan Inj) 5 mg Q8HR IV PUSH Last administered on at 14:29; Start 08/05/17 at 14:00 Amlodipine Besylate (Norvasc) 5 mg DAILY PO Last administered on 08/05/17at 09:18 ; Start 08/05/17 at 09:15; Stop 08/06/17 at 09:42; Status DC Dextrose (D50w (Syr) Inj) 50 ml ONCE ONCE IV PUSH Last administered on at 10:44; Start 08/05/17 at 09:15; Stop 08/05/17 at 09:16; Status DC Insulin Human Regular (NovoLIN R INJ) 10 units ONCE ONCE IV PUSH Last administered on 08/05/17at 10:53; Start 08/05/17 at 09:15; Stop 08/05/17 at 09:16; Status DC Sodium Polystyrene Sulfonate (Kayexalate Liq) 15 gm Q2HR PO Last administered on 08/05/17at 15:02; Start 08/05/17 at 10:00; Stop 08/05/17 at 14:02; Status DC Heparin Sodium (Porcine) (Heparin Inj) 5,000 units Q8HR SQ Last administered on 08/06/17at 06:13; Start 08/05/17 at 14:00; Status Future Hold Miscellaneous Information 1 Q7D T-DERMAL ; Start 08/12/17 at 11:00 Sodium Chloride 1,000 ml @ 0 mls/hr Q0M PRN OTHER For Prime & Rinse Back; Start 08/05/17 at 13:51 Sodium Chloride 1,000 ml @ 200 mls/hr Q5H PRN IV WITH DIALYSIS Last administered on 08/06/17at 13:21; Start 08/05/17 at 13:51 Sodium Chloride 1,000 ml @ 0 mls/hr Q0M PRN OTHER WITH DIALYSIS; Start 08/05/17 at 13:51 Albumin Human 100 ml @ 60 mls/hr UNSCH PRN IV WITH DIALYSIS Last administered on 08/07/17at 09:41; Start 08/05/17 at 14:00 Sodium Chloride (NS Flush) 5 ml UNSCH PRN IV FLUSH WITH DIALYSIS; Start at 14:00 Heparin Sodium (Porcine) (Heparin Inj) UNSCH PRN .XX WITH DIALYSIS Last administered on 08/07/17at 09:19; Start 08/05/17 at 14:00 Gentamicin Sulfate (Gentamicin Inj) 20 mg UNSCH PRN OTHER WITH DIALYSIS Last administered on 08/07/17at 09:20; Start 08/05/17 at 14:00 Ondansetron HCl (Zofran Inj) 4 mg UNSCH PRN IV PUSH WITH DIALYSIS; Start at 14:00 Acetaminophen (Tylenol) 650 mg UNSCH PRN PO for headach, pain, temp > 101F; Start 08/05/17 at 14:00 Diphenhydramine HCl (Benadryl) 25 mg UNSCH PRN PO for hives/itching/anaphylaxis ; Start 08/05/17 at 14:00 Nitroglycerin (Nitrostat Sl) 0.4 mg UNSCH PRN SL CHEST PAIN; Start 08/05/17 at 14:00 Clonidine (Catapres) 0.1 mg UNSCH PRN PO for BP > 180/100 X 2 readings; Start 08/05/17 at 14:00 Gelatin (Gelfoam 12 Mm/7 Mm Top) 1 foam UNSCH PRN TOP SEE LABEL COMMENTS; Start 08/05/17 at 14:00 Heparin Sodium (Porcine) (Heparin Inj) 10,000 units NOW ONCE IV PUSH Last administered on 08/05/17at 17:10; Start 08/05/17 at 17:00; Stop 08/05/17 at 17:07; Status DC Nicardipine HCl 50 mg/Sodium Chloride 500 ml @ 50 mls/hr TITRATE PRN IV Blood pressure management Last administered on 08/07/17at 06:40; Start 08/06/17 at 00: 15 Albuterol/ Ipratropium (Duoneb Neb) 1 ampule Q6HR NEB NEB Last administered on 08/07/17at 15:10; Start 08/06/17 at 10:00 Albuterol Sulfate (Albuterol Neb) 2.5 mg Q2HR NEB PRN NEB dyspnea; Start at 09:45 Amlodipine Besylate (Norvasc) 10 mg DAILY PO ; Start 08/07/17 at 09:00 Hydralazine HCl (Apresoline) 100 mg Q8HR PO Last administered on 08/07/17at 14: 28; Start 08/06/17 at 14:00 Levetriacetam (Keppra Liq) 500 mg Q12HR NG Last administered on 08/07/17at 10: 29; Start 08/06/17 at 21:00 Lactulose (Lactulose Liq) 30 ml QID PO Last administered on 08/07/17at 18:37; Start 08/06/17 at 13:00 Polyethylene Glycol (Miralax) 17 gm BID NG ; Start 08/06/17 at 21:00 Mineral Oil (Kondremul Liq) 30 ml ONCE ONCE PO Last administered on 08/06/17at 14:44; Start 08/06/17 at 09:45; Stop 08/06/17 at 10:42; Status DC Glycerin (Glycerin Adult Supp) 2 gm ONCE ONCE RECTAL Last administered on 08/06at 14:44; Start 08/06/17 at 09:45; Stop 08/06/17 at 10:40; Status DC Methylnaltrexone Vance (Relistor Inj) 12 mg ONCE ONCE SQ Last administered on 08/06/17at 14:44; Start 08/06/17 at 09:45; Stop 08/06/17 at 10:42; Status DC Allopurinol (Zyloprim) 100 mg DAILY PO ; Start 08/07/17 at 09:00 Terazosin HCl (Hytrin) 7 mg BID NG Last administered on 08/07/17at 10:29; Start 08/06/17 at 13:30 Diltiazem HCl (Cardizem Inj) 20 mg ONCE ONCE IV PUSH ; Start 08/06/17 at 22:45 ; Stop 08/06/17 at 22:46; Status Cancel Diltiazem HCl 125 mg/Sodium Chloride 125 ml @ 5 mls/hr TITRATE PRN IV Tachycardia Last administered on 08/07/17at 00:25; Start 08/06/17 at 22:45 Diltiazem HCl (Cardizem Inj) 20 mg ONCE ONCE IV Last administered on at 23:25; Start 08/06/17 at 23:30; Stop 08/06/17 at 23:31; Status DC Mannitol 100 ml @ As Directed STK-MED ONCE .ROUTE ; Start 08/07/17 at 07:16; Stop 08/07/17 at 07:17; Status DC Sodium Bicarbonate (Sodium Bicarbonate 8.4% Inj) 50 meq NOW ONCE IV Last administered on 08/07/17at 07:51; Start 08/07/17 at 07:45; Stop 08/07/17 at 07:46 ; Status DC Diltiazem HCl (Cardizem Inj) 25 mg STK-MED ONCE .ROUTE Last administered on 04/16at 07:51; Start 08/07/17 at 07:36; Stop 08/07/17 at 07:37; Status DC Sodium Bicarbonate (Sodium Bicarbonate 8.4% Inj) 50 meq ONCE ONCE IV PUSH ; Start 08/07/17 at 08:30; Stop 08/07/17 at 08:31; Status DC Metoprolol Tartrate (Lopressor Inj) 2.5 mg Q6H PRN IV PUSH HR >120; Start 08/07 at 07:45 Cefepime HCl 1000 mg/Sodium Chloride 100 ml @ 200 mls/hr Q12H IV ; Start at 10:00 Vancomycin HCl 1000 mg/Sodium Chloride 250 ml @ 250 mls/hr ONCE ONCE IV Last administered on 08/07/17at 10:34; Start 08/07/17 at 09:00; Stop 08/07/17 at 09:59 ; Status DC Diltiazem HCl (Cardizem Inj) 15 mg ONCE ONCE IV ; Start 08/07/17 at 08:30; Stop 08/07/17 at 08:31; Status DC Medical Decision Making MDM Remarks Armando Risk Assessment Model Point Value = 1 Point Value = 2 Point Value = 3 Point Value = 5 Age 41-60 Minor surgery BMI > 25 kg/m2 Swollen legs Varicose veins or History of unexplained or recurrent spontaneous Oral contraceptives or hormone replacement Sepsis (< 1 month) Serious lung disease, including pneumonia (< 1 month) Abnormal pulmonary function Acute myocardial infarction Congestive heart failure (< 1 month) History of inflammatory bowel disease Medical patient at bed rest Age 61-74 Arthroscopic surgery Major open surgery (> 45 min) Laparoscopic surgery (> 45 min) Malignancy Confined to bed (> 72 hours) Immobilizing plaster cast Central venous access Age >= 75 History of VTE Family history of VTE Factor V Leiden Prothrombin [id number] Lupus anticoagulant Anticardiolipin antibodies Elevated serum homocysteine Heparin-induced thrombocytopenia Other congenital or acquired thrombophilia Stroke (< 1 month) Elective arthroplasty Hip, pelvis, or leg fracture Acute spinal cord injury (< 1 month) Prophylaxis Regimen Total Risk Factor Score Risk Level Prophylaxis Regimen 0-1 Low Early ambulation 2 Moderate Order ONE of the following: *Sequential Compression Device (SCD) *Heparin 5000 units SQ BID 3-4 Higher Order ONE of the following medications: *Heparin 5000 units SQ TID *Enoxaparin/Lovenox 40 mg SQ daily (WT < 150 kg, CrCl > 30 mL/min) *Enoxaparin/Lovenox 30 mg SQ daily (WT < 150 kg, CrCl > 10-29 mL/min) *Enoxaparin/Lovenox 30 mg SQ BID (WT < 150 kg, CrCl > 30 mL/min) AND/OR *Sequential Compression Device (SCD) 5 or more Highest Order ONE of the following medications: *Heparin 5000 units SQ TID (Preferred with Epidurals) *Enoxaparin/Lovenox 40 mg SQ daily (WT < 150 kg, CrCl > 30 mL/min) *Enoxaparin/Lovenox 30 mg SQ daily (WT < 150 kg, CrCl > 10-29 mL/min) *Enoxaparin/Lovenox 30 mg SQ BID (WT < 150 kg, CrCl > 30 mL/min) AND *Sequential Compression Device (SCD) Attending Statement Caprini Risk Assessment Model Point Value = 1 Point Value = 2 Point Value = 3 Point Value = 5 Age 41-60 Minor surgery BMI > 25 kg/m2 Swollen legs Varicose veins or History of unexplained or recurrent spontaneous Oral contraceptives or hormone replacement Sepsis (< 1 month) Serious lung disease, including pneumonia (< 1 month) Abnormal pulmonary function Acute myocardial infarction Congestive heart failure (< 1 month) History of inflammatory bowel disease Medical patient at bed rest Age 61-74 Arthroscopic surgery Major open surgery (> 45 min) Laparoscopic surgery (> 45 min) Malignancy Confined to bed (> 72 hours) Immobilizing plaster cast Central venous access Age >= 75 History of VTE Family history of VTE Factor V Leiden Prothrombin [id number] Lupus anticoagulant Anticardiolipin antibodies Elevated serum homocysteine Heparin-induced thrombocytopenia Other congenital or acquired thrombophilia Stroke (< 1 month) Elective arthroplasty Hip, pelvis, or leg fracture Acute spinal cord injury (< 1 month) Prophylaxis Regimen Total Risk Factor Score Risk Level Prophylaxis Regimen 0-1 Low Early ambulation 2 Moderate Order ONE of the following: *Sequential Compression Device (SCD) *Heparin 5000 units SQ BID 3-4 Higher Order ONE of the following medications: *Heparin 5000 units SQ TID *Enoxaparin/Lovenox 40 mg SQ daily (WT < 150 kg, CrCl > 30 mL/min) *Enoxaparin/Lovenox 30 mg SQ daily (WT < 150 kg, CrCl > 10-29 mL/min) *Enoxaparin/Lovenox 30 mg SQ BID (WT < 150 kg, CrCl > 30 mL/min) AND/OR *Sequential Compression Device (SCD) 5 or more Highest Order ONE of the following medications: *Heparin 5000 units SQ TID (Preferred with Epidurals) *Enoxaparin/Lovenox 40 mg SQ daily (WT < 150 kg, CrCl > 30 mL/min) *Enoxaparin/Lovenox 30 mg SQ daily (WT < 150 kg, CrCl > 10-29 mL/min) *Enoxaparin/Lovenox 30 mg SQ BID (WT < 150 kg, CrCl > 30 mL/min) AND *Sequential Compression Device (SCD) Attending Statement Mr Alonzo remains in critical condition. His pulmonary condition has deteriorated Pulmonary. Continue full mechanical ventilation in Assist control mode of ventilation aggressive pulmonary toilette, nasotracheal suction, and breathing treatments with nebulizers. Daily PT and OT Renal. monitor closely urine output, BUN and creatinine Endocrine.Monitor serial Acu checks and SSI as needed in detail ID monitor for signs of infection Protonix for stress ulcer prophylaxis Gilbert curry and SCD's for DVT prophylaxis Further recommendations will be provided depending on the patient's clinical evaluation and follow up studies Les Horne MD Aug 07, 2017 18:54
[2017-08-08] VITALS (18 sets, daily range): BP systolic 128–183; BP diastolic 62–75; PULSE 64–120; RESP 16–24; TEMP 98.2–99.8; O2SAT 95–98
[2017-08-08] MEDS: CHLOROTHIAZIDE SOD 500 MG VIAL IV SCH ×2 (01:08→13:00)
[2017-08-08] MEDS: hydrALAZINE HCL 20 MG/ML VIAL IV PUSH PRN (01:16)
[2017-08-08] MEDS: PROPOFOL 1000 MG/100 ML IV PRN ×2 (01:50→06:03)
[2017-08-08] MEDS: niCARdipine INJ 50 MG in SODIUM CHLORID 0.9% 500 ML INJ 480 ML IV PRN ×5 (02:37→23:09)
[2017-08-08] MEDS: RESP: ALBUTEROL 2.5 MG/IPRATROPIUM 0.5 MG NEB (SCH) NEB ×4 (03:50→20:02)
[2017-08-08 03:51] LABS: KAPPA/LAMBDA FREE 1.68 (0.26-1.65)
[2017-08-08] MEDS: CHLORHEXIDINE GLUCONATE 2 % 1 PACK (2 CLOTHS) TOP SCH (04:00)
[2017-08-08] MEDS: METOPROLOL TARTRATE 5 MG/5 ML VIAL IV PUSH SCH ×4 (04:06→22:51)
[2017-08-08] MEDS: INSULIN ASPART SUPPLEMENTAL SCALE SQ SCH ×4 (06:00→23:55)
[2017-08-08] MEDS: METOCLOPRAMIDE HCL 10 MG/2 ML VIAL IV PUSH SCH ×3 (06:04→20:54)
[2017-08-08] MEDS: FUROSEMIDE 100 MG/10 ML VIAL IV PUSH SCH ×3 (06:04→20:53)
[2017-08-08] MEDS: hydrALAZINE HCL 100 MG TAB PO SCH ×3 (06:04→20:53)
--- NOTE | 2017-08-08 06:15 | RADRPT ---
EXAM DATE/TIME: 08/08/2017 04:59 [facility] COMPARISON: CHEST SINGLE AP, August 07, 2017, 13:29. INDICATIONS : Short of breath. MEDICAL HISTORY : Congestive hearrt failure. Hypertension. diabetes SURGICAL HISTORY : femoral/popliteal bypass. ENCOUNTER: Subsequent ACUITY: 1 week PAIN SCORE: 0/10 LOCATION: Bilateral chest FINDINGS: 2 portable frontal views of the chest show persistent and unchanged bilateral basilar consolidations. No discrete effusion observed. Mild cardiomegaly. Tip of the NG tube just past the GE junction. Tip of the endotracheal tube 4 cm proximal to lorenzo. Bilateral central venous catheters. CONCLUSION: Unchanged bibasilar infiltrates. Pepe Segura Jr., MD on August 08, 2017 at 6:12 Board Certified Radiologist. This report was verified electronically.
[2017-08-08 06:24] LABS: AUTOMATED NEUTROPHIL # 10.4 TH/MM3 (1.8-7.7); BASOPHIL % 0.3 % (0.0-2.0); EOSINOPHIL # 0.1 TH/MM3 (0-0.4); EOSINOPHIL % 0.9 % (0.0-4.0); HEMATOCRIT 22.9 % (39.0-51.0); HEMOGLOBIN 7.7 GM/DL (13.0-17.0); LYMPH % 4.7 % (9.0-44.0); LYMPHOCYTE # 0.6 TH/MM3 (1.0-4.8); MEAN CORPUSCULAR HGB CONC 33.8 % (32.0-36.0); MEAN PLATELET VOLUME 10.2 FL (7.0-11.0); MONO % 9.2 % (0.0-8.0); MONOCYTE # 1.1 TH/MM3 (0-0.9); NEUT % 84.9 % (16.0-70.0); PLATELET COUNT 79 TH/MM3 (150-450); RED BLOOD COUNT 2.66 MIL/MM3 (4.50-5.90); RED CELL DISTRIBUTION WIDTH 23.9 % (11.6-17.2); WHITE BLOOD COUNT 12.3 TH/MM3 (4.0-11.0)
[2017-08-08 06:31] LABS: BICARBONATE 23.3 MEQ/L (21.0-32.0); CALCIUM 8.6 MG/DL (8.5-10.1); CREATININE 3.16 MG/DL (0.60-1.30)
--- NOTE | 2017-08-08 08:28 | HHI.PR ---
Neuropsych Emotional Emotional: UnabletoAssess: Emotional, Anxious/Fearful, Depressed/Sad, Hostile/ Resentful, Irritable/Angry/Frustrate, Labile, Constricted/Blunted Behavior Behavior: Intact: Impulsive/Agitated Cognitive Cognitive: Unable to Asses: Cognitive, Attention/Concentration, Confused/ Orientation, Insight/Awareness, Judgement/Problem-Solving, Memory Psychosocial Psychosocial: Intact: Psychosocial, Family/Other Adjustment, Realistic Expectation, Unable to Asses: Self-Esteem/Confidence Progress Notes/Response to Tx Contents of Sessions: Adjustment, Level of Consciousness Time with Patient: 15 minutes Premorbid psychological status Premorbid Cognitive, Emotional and Behavioral Status: Tenuous. The patient has high school] years of education and is retired. The patient has no prior psychiatric difficulties, as described above. Substance abuse history is unremarkable. Behavioral Reactions of Patient and Family/Support System: Stable. The patient s family is experiencing ongoing issues of adjustment given the nature of the injury, and this aspect of recovery will require ongoing monitoring. Emotional/Behavioral Status of Patient and Family/Support System: Stable. Pertinent issues, if appropriate to this patients clinical care, are described in detail above. Maximizing acute care outcome It is recommended that the patient be monitored for emergent behavioral impulsivity as the medical condition evolves. This patients neuropathological challenges may limit his rehabilitation potential going forward, and these challenges will require specialized therapeutic skills to maximize outcome. Additionally, the patients family is experiencing ongoing issues of adjustment given the traumatic nature of the injury, and they may benefit from ongoing psychological assistance. At this point in the recovery process, the patient does not have cognitive capacity as the patient is unable to understand a situation and its likely consequences, nor is he able to manipulate information rationally. Cognitive capacity will be assessed throughout the recovery process. Anticipated Problems Ongoing areas of concern will include behavioral impulsivity, lack of insight and judgment, which is expected to improve with time and treatment. Presently , the patient is intubated and sedated. Treatment Plan This clinician will continue to follow with you throughout the course of this patients critical care treatment, and I will be available to meet with the patients family/support system to facilitate their understanding and the ongoing care of their family member. The goals of neuropsychological intervention shall be both educational and supportive to the family/support system as is deemed clinically appropriate. [facility] Level: I:No response-total assistance Impression 82 y/o male s/p TBI 2T fall on 07/30/2017. Diagnosis: (1) Major neurocognitive disorder as late effect of traumatic brain injury without behavioral disturbance Status: Acute Progress Note Narrative PTD 9. There is no neurobehavioral change. The patient reportedly aspirated yesterday, complicating his pulmonary challenges. He remains [place]. I will follow. Micah Sotelo PhD Aug 08, 2017 8:28 am
[2017-08-08] MEDS: levETIRAcetam 500 MG/5 ML UDC NG SCH (08:33)
[2017-08-08] MEDS: FAMOTIDINE 20 MG TAB PO SCH ×2 (08:33→20:52)
[2017-08-08] MEDS: PRAVASTATIN SOD 40 MG TAB PO SCH (08:33)
[2017-08-08] MEDS: ALLOPURINOL 100 MG TAB PO SCH (08:33)
[2017-08-08] MEDS: CHLORHEXIDINE 0.12% (ORAL KIT) 15 ML CUP MT SCH ×2 (08:33→20:54)
[2017-08-08] MEDS: POLYETHYLENE GLYCOL 17 GM PKG NG SCH ×2 (08:34→20:54)
[2017-08-08] MEDS: LACTULOSE SYRUP 20 GM/30 ML CUP PO SCH ×5 (08:34→20:52)
[2017-08-08] MEDS: MAGNESIUM HYDROXIDE SUSP 30 ML CUP PO SCH ×2 (08:34→20:54)
[2017-08-08] MEDS: DOCUSATE SODIUM 50 MG/SENNA 8.6 MG TAB PO SCH ×2 (08:34→20:52)
--- NOTE | 2017-08-08 09:12 | HHI.CCPN ---
Subjective Remarks/Hospital Course 82 y/o man fell from height and sustained closed head trauma including left subdural hematoma and bilateral temporal parenchymal bleeds in areas of contusion. Admission CXR is impressive for pulmonary venous congestion. Home meds are not known at this time. 07/31: Enlarging left subdural hemorrhage and enlarging parenchymal contusions/ bleeds undoubtedly exacerbated by Plavix and aspirin use. CXR demonstrates bilateral effusions but improved pulmonary venous congestion after diuretic yesterday. Unfortunately a worsening azotemia has developed indicating he may not tolerate diuresis well. Follow renal function closely. I would have predicted chronic systolic heart failure after observing his effusions and ankles but his cardiac ECHO reveals reasonable biventricular function, probably EF > 50%. This may all be primary renal disease considering his reduced GFR and chronic anemia. 08/01: Remains sedated, orally intubated on mechanical ventilation 08/05: Remains sedated, orally intubated on mechanical ventilation. Renal function continued to decline of the last few days. Family wishes to proceed with hemodialysis after discussion with trauma team and nephrology. Subjective 08/06: Afebrile. Bradycardic. No acute cardiovascular incidents overnight. Continues on nicardipine drip at 7.5 mg an hour. Hemodialysis yesterday -3 L 08/07: Hypoxemic increasing oxygen requirement. Currently on 60% FiO2 10 of PEEP. Also developed atrial fibrillation with RVR, currently on Cardizem infusion at 15 mg/h with heart rate in 130s, Cardene infusion at 15 mg/h to control blood pressure. Additional 50 mg IV push of Cardizem ordered. Chest x- ray with bilateral basilar infiltrates left more than right. Increased yellow ET tube secretions. Start cefepime 1 gm IV q12 and vancomycin 1 gm IV x1 08/08: Remains intubated heavily sedated for ventilator synchrony. Antibiotics started yesterday for dense basilar consolidation bilaterally, WBC count slightly improved today. Intermittent episodes of nonsustained V. tach. Start scheduled Coreg 12.5 twice daily. Check magnesium level replace potassium. Hemodialysis yesterday with 3.5 L removed. Urine output approximately 500 mL in 24 hours Objective Vital Signs Date Time Temp Pulse Resp B/P (MAP) Pulse Ox O2 Delivery O2 Flow Rate FiO2 08/08/17 06:00 72 08/08/17 04:00 50 08/08/17 04:00 98.3 16 162/69 (100) 97 Intake and Output 08/08/17 08/08/17 08/09/17 08:00 16:00 00:00 Intake Total 918.4 ml Output Total 400 ml Balance 518.4 ml Result Diagram: 08/08/17 0500 08/08/17 0500 Imaging Last Impressions Chest X-Ray 08/06/17 0600 Signed Impressions: Service Date/Time: Sunday, August 06, 2017 02:56 - CONCLUSION: 1. Slightly improved bibasilar consolidation and small effusions. 2. No change mild cardiomegaly. Ra Ballard MD Head CT 08/04/17 0000 Signed Impressions: Service Date/Time: July 04:37 - CONCLUSION: 1. Stable intracranial findings including bilateral subdural hematomas, intraventricular blood products, and bilateral temporal lobe hemorrhagic contusions. There is no midline shift or herniation. Ventricles are stable in size. 2. There is new fluid in the mastoid air cells and small air fluid levels bilaterally in the maxillary antra. These changes may be related to intubation. Ra Pulliam MD Lower Extremity Ultrasound 08/02/17 0000 Signed Impressions: Service Date/Time: Wednesday, August 02, 2017 10:40 - CONCLUSION: No evidence of DVT. Danyel Bear MD Renal Ultrasound 08/01/17 0000 Signed Impressions: Service Date/Time: Tuesday, August 01, 2017 14:46 - CONCLUSION: There is no hydronephrosis or stone. Bilateral pleural effusions.. Angel Brown MD FACR Shoulder X-Ray 07/31/17 0000 Signed Impressions: Service Date/Time: Monday, July 31, 2017 14:25 - CONCLUSION: No obvious fracture or dislocation. Degenerative changes. Prasanna Milan MD Cervical Spine CT 07/30/17 1202 Signed Impressions: Service Date/Time: Sunday, July 30, 2017 12:17 - CONCLUSION: 1. Negative for fracture. 2. Degenerative changes consisting of uncinate ridging with neural foramen encroachment without radiographically significant spinal stenosis. 3. Bilateral moderate sized pleural effusions seen on the lower slices through the upper lungs lungs. Angel Brown MD FACR Objective Remarks GENERAL: 82-year-old male currently orotracheally intubated, critically ill hypoxemic SKIN: Warm/dry. HEAD: Atraumatic. Normocephalic. EYES: Pupils equal right pupil 2 mm left pupil 2 mm reactive to light. Subconjunctival hemorrhage on the right side. ENT: No nasal bleeding or discharge. Orotracheally intubated. Moderate ET tube secretions NECK: Trachea midline. No JVD. Right IJ hemodialysis catheter is clean dry and intact. CARDIOVASCULAR: Atrial fibrillation with RVR. S1, S2 no S4. Distant. RESPIRATORY: Breath sounds equal bilaterally, with coarse rhonchi diminished at the bases. GASTROINTESTINAL: Abdomen protuberant. Hypoactive bowel sounds are appreciated. : Arellano catheter in place with bloody. Positive scrotal edema MUSCULOSKELETAL: No obvious deformities. Possible lipodermatosclerosis bilateral lower extremities NEUROLOGICAL: Sedated, orally intubated on mechanical ventilation. Withdraws to pain 4, predominantly lower extremities Urinary Catheter: Yes Assessment to: Continue Vascular Central Line Catheter: Yes Assessment to: Continue Side: Right Location: Internal, Jugular (Vas cath) A/P Assessment and Plan Neuro/Psych: TBI Bilateral subdural hematomas, intraventricular blood products, and bilateral temporal lobe hemorrhagic contusions Acute encephalopathy Currently on Propofol drip for sedation and ventilator synchrony. Start daily sedation vacation. CT brain admission revealed bilateral subdural hematomas, intraventricular hemorrhage in bilateral temporal contusions. Followed by neurosurgery/Dr. Horne. Status post removal of ICP 08/05 Levetiracetam 500 mg by tube twice daily seizure prophylaxis Acetaminophen 650 mg p.o. every 6 hours as needed fever Currently holding primidone 50 mg twice daily for essential tremor CV: Atrial fibrillation with RVR Nonsustained V. tach Uncontrolled hypertension Chronic diastolic heart failure Mild pulmonary hypertension PVD -stent LAD status post femoropopliteal Currently on nicardipine drip at 15 mg an hour to maintain systolic blood pressure less than 150 Cardizem drip at 5 mg/h for atrial fibrillation with RVR, if heart rate not adequately controlled add amiodarone gtt Continue hydralazine 100 mg every 8 hours, amlodipine 10 mg daily, metoprolol 5 mg IV every 6 hours and terazosin 10 mg daily Scheduled p.o. Coreg 12.5 twice daily Continue pravastatin 40 mg daily for dyslipidemia. On simvastatin 20 mg daily home. Holding aspirin 325 daily and clopidogrel 75 daily in light of brain hemorrhage as above, cannot fully anticoagulate for a fib 2D echo revealed LVEF low normal with an estimated ejection fraction in the range of 50- 55%. Mild pulmonary. hypertension 40 mmHg Home medications include terazosin 10 mg daily, Toprol 50 mg twice daily, losartan 25 mg p.o. daily, Aldactone 25 mg daily, Lasix 80 mg twice daily Currently on furosemide 80 mg IV every 6 8 hours and Diuril 500 mg IV every 12 hours. Hold while on hemodialysis-defer to nephrology Resp: Acute hypoxemic respiratory failure Healthcare associated pneumonia [facility] /06/08/49. Wean PEEP to 8, FiO2 to 45% Ventilator bundle. Albuterol/ipratropium aerosols every 6 hours with albuterol aerosols every 2 hours as needed for dyspnea Sputum culture, broad-spectrum antibiotics with cefepime 1 g every 12, vancomycin 1 dose given 08/07 CT of the chest to evaluate effusion/infiltrate-shows bibasilar dense consolidation GI: Hypoalbuminemia Constipation Gastroesophageal reflux disease Currently on Glucerna 1.5 and 35 cc an hour/recommendations per pharmacy Currently in famotidine for GI prophylaxis. On omeprazole 20 mg daily at home. Docusate sodium/senna 1 tablet twice daily, lactulose 30 cc every 6 hours, polythene glycol 17 g twice daily for bowel regimen. s/p glycerin suppository 1, methylnaltrexone and mineral oil 1 today. KUB showed normal bowel gas pattern : BPH Holding finasteride 5 mg daily and terazosin 10 mg daily. Resume clinically indicated The arellano catheter has been placed for accurate I's and O's in a critically ill patient with significant scrotal edema Endo: Gout Diabetes mellitus Home medications include glipizide 5 mg twice daily Sliding scale insulin with aspart insulin to maintain euglycemia Allopurinol 100 mg daily Renal: Acute kidney failure -3.5 L with hemodialysis yesterday/Dr. Chavez. -Repeat HD per nephrology Heme: Normocytic anemia Thrombocytopenia Monitor CBC daily. Follow trends On iron sulfate 160 mg daily at home ID: Severe sepsis Healthcare associated pneumonia -Sepsis and pneumonia as indicated by increasing white count increasing ET tube secretions and worsening hypoxia -Started on cefepime and single dose of vancomycin 08/07 -F/UI sputum urine and blood cultures FEN: Hypernatremia Replace electrolytes as clinically indicated Access: -Right IJ hemodialysis catheter placed 08/05 Prophylaxis -GI -famotidine -DVT -SCD/heparin subcu CCT 45 min Remains critically ill with TBI, hypoxemic respiratory failure, healthcare associated pneumonia. Also in atrial fibrillation and Non sustained VTAC. Critically ill now with multiorgan failure Doug Knapp MD Aug 08, 2017 09:12
[2017-08-08 09:18] LABS: OVALOCYTES 1+ (NORMAL); TEARDROP RBCS 1+ (NORMAL)
[2017-08-08] MEDS: CEFEPIME INJ 1,000 MG in SODIUM CHLORIDE 0.9% INJ 100 ML IV SCH ×2 (09:43→20:53)
[2017-08-08] MEDS: CARVEDILOL 12.5 MG TAB PO SCH ×2 (09:50→20:54)
[2017-08-08] MEDS: TERAZOSIN HCL 1 MG CAP NG SCH ×2 (10:02→20:52)
[2017-08-08] MEDS ORDERED: POTASSIUM CHLOR 20 MEQ PREMIX 100 ML IV ONE (11:00)
--- NOTE | 2017-08-08 12:17 | HHI.NPPN ---
Subjective History of Present Illness This patient is an 82-year-old male who unfortunately cannot provide any history secondary to head injury, intubated status on a ventilator. History obtained from records and from his daughter. Limited history available. Family patient has a history suggesting peripheral vascular disease, congestive heart failure, chronic lower extremity edema with dyspnea, chronic renal sufficiency?. According to the patient's daughter he was hospitalized back in 2013 at [facility]. Developed a ruptured appendix post colonoscopy subsequently developing acute renal failure and requiring laparotomy. According to the patient's daughter he was on dialysis temporarily. Not following up with a concrete fence builder routinely in recent times. They cannot recall name of his primary care physician currently also. Patient apparently fell short distance from a ladder and hit his head and subsequently has been diagnosed as having a subdural as well as subarachnoid hemorrhage. Creatinine was elevated at the time of presentation at 1.5 and chest x-ray showed evidence of congestive heart failure and the patient had a hemoglobin that was only 7.4. Echocardiogram performed July 31, 2017 revealed an ejection fraction of 50-55%. Patient's albumin on presentation his low with a low corrected calcium 7.8. Interval History Still intubated nonresponsive to questions. Review of Systems General General Remarks Unable to obtain Objective Data Data 08/08/17 08/09/17 19:00 07:00 Intake Total 425 ml Output Total 100 ml Balance 325 ml IV Total 425 ml Gastric Drainage Total 100 ml Vital Signs Date Time Temp Pulse Resp B/P (MAP) Pulse Ox O2 Delivery O2 Flow Rate FiO2 08/08/17 09:08 101 161/70 08/08/17 09:03 95 50 08/08/17 06:00 72 08/08/17 04:00 50 08/08/17 04:00 68 08/08/17 04:00 98.3 80 16 162/69 (100) 97 08/08/17 03:50 96 50 08/08/17 02:37 71 183/84 08/08/17 02:00 71 08/08/17 01:09 95 50 08/08/17 00:57 97 50 08/08/17 00:00 50 08/08/17 00:00 98.2 74 19 148/73 (98) 97 08/08/17 00:00 64 08/07/17 20:19 100 50 08/07/17 20:00 50 08/07/17 20:00 63 08/07/17 20:00 98.6 60 17 155/65 (95) 98 08/07/17 16:00 50 08/07/17 16:00 98.1 60 12 110/54 (72) 98 08/07/17 15:16 100 50 08/07/17 15:00 58 08/07/17 15:00 58 -: 08/08/17 0500 08/08/17 0500 Physical Exam General Appearance: Comfortable, Obese Appearance Remarks ET tube in place. Eyes Eye Exam: Sclera White Pulmonary Resp Exam: Breath Sounds Equal, No Distress, Decreased Bases Cardiology CV Exam: Regular, Normal Sinus Rhythm Gastrointestinal/Abdomen GI Exam: Non-Tender, Distended Extremeties Extremities Exam: Moderate Edema (significantly improved with dialysis.), Pitting Edema, Dependent Edema (diffuse edema involving all extremities, hips and dependent torso.) Neurologic Neuro Exam: Sedated Assessment/Plan Discussed Condition With: Son, Daughter, Relative Problem List: (1) Acute kidney insufficiency ICD Codes: N28.9 - Disorder of kidney and ureter, unspecified Status: Chronic Plan: Volume status has improved however the patient still has significant generalized edema. Blood pressure still elevated and increasing fluid may aid in blood pressure management also. Hemodialysis today for further fluid removal. Family as mentioned in my previous note wishes to continue with dialytic support for the 5-6 days in the hope that his neurological status will improve. If no improvement they have indicated that they will consider comfort care. Electrolytes and acid-base status have improved with dialysis. CK level noted to be within normal range. If the patient require dialysis long-term with no improvement in neurological state requiring PEG and trach and the family wishes continue same he will likely require institutionalization in a long-term care facility which could provide dialytic services most likely out of town. Medications should be adjusted for the patient's estimated GFR if clinically indicated. Avoid agents with significant potential for nephrotoxicity possible including NSAIDs for analgesia, iodine contrast agents. Gadolinium is contraindicated if the GFR is below 30. (2) CKD (chronic kidney disease) stage 3, GFR 30-59 ml/min ICD Codes: N18.3 - Chronic kidney disease, stage 3 (moderate) Status: Chronic Plan: Baseline renal function unknown. Patient currently has a history of chronic lower extremity edema and dyspnea. Unfortunately previous records not available but I suspect that the patient has a component of chronic CHF. 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 Also previous history of acute renal failure may have resulted in significant deterioration in his baseline renal function but those records are not available to me currently. (3) Congestive heart failure ICD Codes: I50.9 - Heart failure, unspecified Status: Chronic Plan: Continue furosemide and Diuril as ordered. Monitor response. Most likely has some degree of diastolic dysfunction as EF was reported as being 50-55%. (4) Edema due to congestive heart failure ICD Codes: I50.9 - Heart failure, unspecified Status: Chronic Plan: In addition patient does have evidence of hypoalbuminemia. Need to determine as the patient has significant proteinuria. UPCR pending (5) Major neurocognitive disorder as late effect of traumatic brain injury without behavioral disturbance ICD Codes: S06.9X9S - Unspecified intracranial injury with loss of consciousness of unspecified duration, sequela; F02.80 - Dementia in other diseases classified elsewhere without behavioral disturbance Status: Acute (6) Hyperkalemia ICD Codes: E87.5 - Hyperkalemia Status: Resolved Plan: Resolved with dialysis. (7) HTN (hypertension) ICD Codes: I10 - Essential (primary) hypertension Plan: The pressure still significantly elevated. On multiple classes of hypertensive medications. Would like to try to avoid using an angiotensin receptor stacie and MATTY inhibitor for the present in the setting of his acute renal insufficiency. Will increase Hytrin to twice a day dosing and titrate upward as indicated. Problem Qualifiers (1) Congestive heart failure: Qualified Codes: I50.9 - Heart failure, unspecified Michell Chavez MD Aug 08, 2017 12:17
[2017-08-08 13:15] LABS: HEPATITIS A AB IGM NEGATIVE (NEGATIVE); HEPATITIS B CORE AB IGM NEGATIVE (NEGATIVE)
--- NOTE | 2017-08-08 13:38 | HHI.NSPN ---
(Kathe Murphy) Note Status Status: Progress Note (Kathe Murphy) Interval History Interval History This is an 82-year-old gentleman who fell backwards off of a ladder approximately 10 feet. He underwent a brief round of CPR but was found to be spontaneously breathing so it was stopped patient was brought in the trauma bay hypertensive and confused he was intubated in the trauma bay. No seizure activity reported. No tongue biting. No incontinence of stool or urine. No tonic-clonic movements. He had unequal pupils and a coffee-ground emesis prior to intubation. He was upgraded to a level I trauma alert. He was resuscitated according to the ATLS protocol and full trauma workup was carried down. He was found to have right subarachnoid hemorrhage as well as subdural hematoma. He was given 2 units of platelets that for his platelet insufficiency due to Plavix. He was moving his extremities. Neurosurgical consultation was requested 07/31/17. Remains intubated and sedated. ICP monitor in place. A follow-up CT of the brain was obtained 08/01/17: intubated and sedated, ICPs below 10. 08/02/17: intubated, sedated. ICPs stable. f/u CT Brain yesterday showed slight increase in size of left subdural hematoma per Dr. Horne' review. decreasing renal function - nephrology consulted, also now with PVCs. 08/03/17: remains intubated, sedated on fentanyl and propofol drips. ICPs below 20. 08/04/17: ICPs stable overnight, f/u CT Brain this morning completed. intubated and sedated. 08/05/17: intubated and currently only minimally sedated, minimal eye opening when suctioned. 08/06 remains mechanically ventilated and sedated. Remains hypertensive despite numerous agents. Currently on second session of dialysis. 08/07. He vomited overnight and likely aspirated. Respiratory distress with increased Fio2 requirements. Maximal dose Cardene and Cardizem drips. Getting dialysis today 08/08: no change to his neuro exam. intubated, very minimal sedation - does not open eyes, withdraws to both feet. (Kathe Murphy) Labs, Micro, & Vital Signs Results Date Time Temp Pulse Resp B/P (MAP) Pulse Ox O2 Delivery O2 Flow Rate FiO2 08/08/17 13:01 103 143/60 08/08/17 12:00 50 08/08/17 12:00 102 08/08/17 12:00 99.1 109 23 147/67 (93) 96 08/08/17 10:00 97 08/08/17 09:08 101 161/70 08/08/17 09:03 95 50 08/08/17 08:00 50 08/08/17 08:00 99.0 97 24 153/69 (97) 95 08/08/17 08:00 97 08/08/17 06:00 72 08/08/17 04:00 50 08/08/17 04:00 68 08/08/17 04:00 98.3 80 16 162/69 (100) 97 08/08/17 03:50 96 50 08/08/17 02:37 71 183/84 08/08/17 02:00 71 08/08/17 01:09 95 50 08/08/17 00:57 97 50 08/08/17 00:00 50 08/08/17 00:00 98.2 74 19 148/73 (98) 97 08/08/17 00:00 64 08/07/17 20:19 100 50 08/07/17 20:00 50 08/07/17 20:00 63 08/07/17 20:00 98.6 60 17 155/65 (95) 98 08/07/17 16:00 50 08/07/17 16:00 98.1 60 12 110/54 (72) 98 08/07/17 15:16 100 50 08/07/17 15:00 58 08/07/17 15:00 58 08/09/17 07:00 Intake Total 965 ml Output Total 100 ml Balance 865 ml Constitutional Vital Signs Date Time Temp Pulse Resp B/P (MAP) Pulse Ox O2 Delivery O2 Flow Rate FiO2 08/08/17 13:01 103 143/60 08/08/17 12:00 50 08/08/17 12:00 102 08/08/17 12:00 99.1 109 23 147/67 (93) 96 08/08/17 10:00 97 08/08/17 09:08 101 161/70 08/08/17 09:03 95 50 08/08/17 08:00 50 08/08/17 08:00 99.0 97 24 153/69 (97) 95 08/08/17 08:00 97 08/08/17 06:00 72 08/08/17 04:00 50 08/08/17 04:00 68 08/08/17 04:00 98.3 80 16 162/69 (100) 97 08/08/17 03:50 96 50 08/08/17 02:37 71 183/84 08/08/17 02:00 71 08/08/17 01:09 95 50 08/08/17 00:57 97 50 08/08/17 00:00 50 08/08/17 00:00 98.2 74 19 148/73 (98) 97 08/08/17 00:00 64 08/07/17 20:19 100 50 08/07/17 20:00 50 08/07/17 20:00 63 08/07/17 20:00 98.6 60 17 155/65 (95) 98 08/07/17 16:00 50 08/07/17 16:00 98.1 60 12 110/54 (72) 98 08/07/17 15:16 100 50 08/07/17 15:00 58 08/07/17 15:00 58 08/09/17 07:00 Intake Total 965 ml Output Total 100 ml Balance 865 ml (Kathe Murphy) Physical Exam Mr. Alonzo is intubated and minimally sedated, he has minimal eyes opening when suctioned. Does not open eyes to void. he does not follow commands. Head: Right bolt site with steri strips in place, dry. Cranial Nerves: Pupils right 2mm, left 3 mm round. Cervical Spine: soft, supple Motor: not following commands for testing, minimal withdraw in feet bilaterally , no response to pain in upper extremities. diffuse extremity swelling Sensory: minimal response to painful stimuli in feet Cerebellar: cannot be adequately assessed due to the patient's neurological condition. Heart: regular rate, rhythm Resp: clear, mechanically ventilated Skin: warm, dry (Kathe Murphy) Mr. Alonzo is intubated and minimally sedated, he has minimal eyes opening when suctioned. Does not open eyes to void. he does not follow commands. Head: Right bolt site with steri strips in place, dry. Cranial Nerves: Pupils right 2mm, left 3 mm round. Cervical Spine: soft, supple Motor: not following commands for testing, minimal withdraw in feet bilaterally , no response to pain in upper extremities. diffuse extremity swelling Sensory: minimal response to painful stimuli in feet Cerebellar: cannot be adequately assessed due to the patient's neurological condition. Heart: regular rate, rhythm Resp: clear, mechanically ventilated Skin: warm, dry (Les Horne MD) Medications Current Medications Current Medications Medications (Trade) Dose Ordered Sig/Juliet Route PRN Reason Start Time Stop Time Status Last Admin Dose Admin Sodium Chloride (NS Flush) 2 ml UNSCH PRN IV FLUSH FLUSH AFTER USING IV ACCESS 07/30/17 12:45 08/03/17 09:43 Ondansetron HCl (Zofran Inj) 4 mg Q6H PRN IV PUSH NAUSEA OR VOMITING 07/30/17 12:45 08/06/17 18:19 Miscellaneous Information 1 Q361D XX 07/30/17 12:45 Chlorhexidine Gluconate (Chlorhexidine 2% Cloth) Taper DAILY@04 TOP 07/31/17 04:00 07/27/18 03:59 08/05/17 03:26 Chlorhexidine Gluconate (Chlorhexidine 2% Cloth) 3 pack UNSCH PRN TOP HYGIENIC CARE 07/30/17 12:45 Chlorhexidine Gluconate (Peridex 0.12% Liq) 15 ml BID@08,20 MT 07/30/17 20:00 08/08/17 08:33 Propofol 100 ml @ 2.64 mls/hr TITRATE PRN IV SEDATION 07/30/17 13:30 08/08/17 06:03 Famotidine (Pepcid) 10 mg BID PO 07/30/17 21:00 08/08/17 08:33 Pravastatin Sodium (Pravachol) 40 mg DAILY PO 07/31/17 09:00 08/08/17 08:33 Dextrose (D50w (Vial) Inj) 50 ml UNSCH PRN IV PUSH HYPOGLYCEMIA-SEE COMMENTS 07/31/17 07:45 Glucagon (Glucagon Inj) 1 mg UNSCH PRN OTHER HYPOGLYCEMIA-SEE COMMENTS 07/31/17 07:45 Senna/Docusate Sodium (Jackelyn-Colace) 1 tab BID PO 08/01/17 21:00 08/06/17 07:57 Lactulose (Lactulose Liq) 30 ml DAILY PO 08/01/17 16:15 08/06/17 07:56 Bisacodyl (Dulcolax Supp) 10 mg DAILY PRN RECTAL Constipation 08/01/17 16:15 Insulin Aspart (NovoLOG SUPPLEMENTAL SCALE) 1 Q6HR SQ 08/01/17 18:00 08/07/17 05:36 Chlorothiazide Sodium (Diuril Inj) 500 mg Q12H IV 08/03/17 01:00 08/08/17 01:08 Metoprolol Tartrate (Lopressor Inj) 5 mg Q6H IV PUSH 08/04/17 10:00 08/08/17 10:01 Hydralazine HCl (Apresoline Inj) 10 mg Q4HR PRN IV PUSH SBP>160, DBP>90 08/04/17 12:30 08/08/17 01:16 Furosemide (Lasix Inj) 80 mg Q8HR IV PUSH 08/04/17 22:00 08/08/17 13:22 Magnesium Hydroxide (Milk Of Magnesia Liq) 30 ml BID PO 08/05/17 09:00 08/06/17 07:56 Clonidine (Catapres-Tts 0.3 Mg Patch.7d) 1 patch Q7D T-DERMAL 08/05/17 11:00 08/05/17 11:49 Metoclopramide HCl (Reglan Inj) 5 mg Q8HR IV PUSH 08/05/17 14:00 08/08/17 13:22 Heparin Sodium (Porcine) (Heparin Inj) 5,000 units Q8HR SQ 08/05/17 14:00 Future Hold 08/06/17 06:13 Miscellaneous Information 1 Q7D T-DERMAL 08/12/17 11:00 Sodium Chloride 1,000 ml @ 0 mls/hr Q0M PRN OTHER For Prime & Rinse Back 08/05/17 13:51 Sodium Chloride 1,000 ml @ 200 mls/hr Q5H PRN IV WITH DIALYSIS 08/05/17 13:51 08/06/17 13:21 Sodium Chloride 1,000 ml @ 0 mls/hr Q0M PRN OTHER WITH DIALYSIS 08/05/17 13:51 Albumin Human 100 ml @ 60 mls/hr UNSCH PRN IV WITH DIALYSIS 08/05/17 14:00 08/07/17 09:41 Sodium Chloride (NS Flush) 5 ml UNSCH PRN IV FLUSH WITH DIALYSIS 08/05/17 14:00 Heparin Sodium (Porcine) (Heparin Inj) UNSCH PRN .XX WITH DIALYSIS 08/05/17 14:00 08/07/17 09:19 Gentamicin Sulfate (Gentamicin Inj) 20 mg UNSCH PRN OTHER WITH DIALYSIS 08/05/17 14:00 08/07/17 09:20 Ondansetron HCl (Zofran Inj) 4 mg UNSCH PRN IV PUSH WITH DIALYSIS 08/05/17 14:00 Acetaminophen (Tylenol) 650 mg UNSCH PRN PO for headach, pain, temp > 101F 08/05/17 14:00 Diphenhydramine HCl (Benadryl) 25 mg UNSCH PRN PO for hives/itching/anaphylaxis 08/05/17 14:00 Nitroglycerin (Nitrostat Sl) 0.4 mg UNSCH PRN SL CHEST PAIN 08/05/17 14:00 Clonidine (Catapres) 0.1 mg UNSCH PRN PO for BP > 180/100 X 2 readings 08/05/17 14:00 08/08/17 01:57 Gelatin (Gelfoam 12 Mm/7 Mm Top) 1 foam UNSCH PRN TOP SEE LABEL COMMENTS 08/05/17 14:00 Nicardipine HCl 50 mg/Sodium Chloride 500 ml @ 50 mls/hr TITRATE PRN IV Blood pressure management 08/06/17 00:15 08/08/17 13:01 Albuterol/ Ipratropium (Duoneb Neb) 1 ampule Q6HR NEB NEB 08/06/17 10:00 08/08/17 09:03 Albuterol Sulfate (Albuterol Neb) 2.5 mg Q2HR NEB PRN NEB dyspnea 08/06/17 09:45 Amlodipine Besylate (Norvasc) 10 mg DAILY PO 08/07/17 09:00 08/08/17 08:33 Hydralazine HCl (Apresoline) 100 mg Q8HR PO 08/06/17 14:00 08/08/17 13:22 Lactulose (Lactulose Liq) 30 ml QID PO 08/06/17 13:00 08/08/17 08:34 Polyethylene Glycol (Miralax) 17 gm BID NG 08/06/17 21:00 08/07/17 20:27 Allopurinol (Zyloprim) 100 mg DAILY PO 08/07/17 09:00 08/08/17 08:33 Terazosin HCl (Hytrin) 7 mg BID NG 08/06/17 13:30 08/08/17 10:02 Diltiazem HCl 125 mg/Sodium Chloride 125 ml @ 5 mls/hr TITRATE PRN IV Tachycardia 08/06/17 22:45 08/07/17 00:25 Metoprolol Tartrate (Lopressor Inj) 2.5 mg Q6H PRN IV PUSH HR >120 08/07/17 07:45 08/08/17 08:35 Cefepime HCl 1000 mg/Sodium Chloride 100 ml @ 200 mls/hr Q12H IV 08/07/17 10:00 08/08/17 09:43 Carvedilol (Coreg) 12.5 mg Q12HR PO 08/08/17 09:00 08/08/17 09:50 (Kathe Murphy) Current Medications Current Medications Ondansetron HCl (Zofran Inj) 4 mg STK-MED ONCE .ROUTE ; Start 07/30/17 at 11:55; Stop 07/30/17 at 11:56; Status DC Propofol 100 ml @ As Directed STK-MED ONCE .ROUTE ; Start 07/30/17 at 12:04; Stop 07/30/17 at 12:05; Status DC Nicardipine HCl (Cardene Inj) 25 mg STK-MED ONCE .ROUTE ; Start 07/30/17 at 12:08 ; Stop 07/30/17 at 12:09; Status DC Sodium Chloride 1,000 ml @ 60 mls/hr [id number] IV Last administered on 08/01/17at 08:45; Start 07/30/17 at 12:31; Stop 08/01/17 at 11:50; Status DC Sodium Chloride (NS Flush) 2 ml UNSCH PRN IV FLUSH FLUSH AFTER USING IV ACCESS Last administered on 08/03/17at 09:43; Start 07/30/17 at 12:45 Ondansetron HCl (Zofran Inj) 4 mg Q6H PRN IV PUSH NAUSEA OR VOMITING Last administered on 08/06/17at 18:19; Start 07/30/17 at 12:45 Multivitamins 10 ml/Thiamine HCl 100 mg/Folic Acid 1 mg/Sodium Chloride 511.2 ml @ 125 mls/hr Q24H IV Last administered on 08/01/17at 15:19; Start 07/30/17 at 15:00; Stop 08/01/17 at 19:06; Status DC Docusate Sodium (Colace) 100 mg BID PO Last administered on 08/01/17at 08:44; Start 07/30/17 at 21:00; Stop 08/01/17 at 16:11; Status DC Magnesium Hydroxide (Milk Of Magnesia Liq) 30 ml Q6H PRN PO CONSTIPATION; Start 07/30/17 at 12:45; Stop 08/01/17 at 16:11; Status DC Miscellaneous Information 1 Q361D XX ; Start 07/30/17 at 12:45 Chlorhexidine Gluconate (Chlorhexidine 2% Cloth) Taper DAILY@04 TOP Last administered on 08/05/17at 03:26; Start 07/31/17 at 04:00; Stop 07/27/18 at 03:59 Chlorhexidine Gluconate (Chlorhexidine 2% Cloth) 3 pack UNSCH PRN TOP HYGIENIC CARE; Start 07/30/17 at 12:45 Propofol 100 ml @ 0 mls/hr TITRATE PRN IV SEDATION; Start 07/30/17 at 13:00; Stop 07/30/17 at 13:30; Status DC Chlorhexidine Gluconate (Peridex 0.12% Liq) 15 ml BID@08,20 MT Last administered on 08/08/17at 08:33; Start 07/30/17 at 20:00 Propofol 100 ml @ 0 mls/hr TITRATE PRN IV SEDATION; Start 07/30/17 at 13:00; Stop 07/30/17 at 13:00; Status DC Fentanyl Citrate 250 ml TITRATE PRN IV SEDATION; Start 07/30/17 at 13:00; Stop 07/30/17 at 13:00; Status DC Fentanyl Citrate 250 ml TITRATE PRN IV SEDATION; Start 07/30/17 at 13:00; Stop 07/30/17 at 13:30; Status DC Albuterol/ Ipratropium (Duoneb Neb) 1 ampule Q6HR NEB NEB Last administered on 08/02/17at 20:40; Start 07/30/17 at 16:00; Stop 08/02/17 at 20:55; Status DC Diphtheria/ Tetanus/Acell Pertussis (Boostrix Inj) 0.5 ml STK-MED ONCE IM ; Start 07/30/17 at 12:58; Stop 07/30/17 at 12:59; Status DC Etomidate (Amidate Inj) 20 mg STK-MED ONCE .ROUTE ; Start 07/30/17 at 13:01; Stop 07/30/17 at 13:02; Status DC Succinylcholine Chloride (Quelicin Inj) 200 mg STK-MED ONCE .ROUTE ; Start at 13:01; Stop 07/30/17 at 13:02; Status DC Fentanyl Citrate 250 ml @ 5 mls/hr TITRATE PRN IV Sedation Last administered on 08/05/17at 22:20; Start 07/30/17 at 13:30; Stop 08/07/17 at 16:32; Status DC Propofol 100 ml @ 2.64 mls/hr TITRATE PRN IV SEDATION Last administered on 05/16at 06:03; Start 07/30/17 at 13:30 Famotidine (Pepcid) 10 mg BID PO Last administered on 08/08/17at 08:33; Start at 21:00 Nicardipine HCl 25 mg/Sodium Chloride 250 ml @ 50 mls/hr TITRATE PRN IV Blood pressure management Last administered on 08/05/17at 22:23; Start 07/30/17 at 16:15 ; Stop 08/06/17 at 00:11; Status DC Spironolactone (Aldactone) 25 mg DAILY PO Last administered on 08/01/17at 08:44; Start 07/31/17 at 09:00; Stop 08/01/17 at 09:54; Status DC Pravastatin Sodium (Pravachol) 40 mg DAILY PO Last administered on 08/08/17at 08 :33; Start 07/31/17 at 09:00 Metoprolol Tartrate (Lopressor) 25 mg Q12HR PO Last administered on 08/03/17at 20 :33; Start 07/31/17 at 09:00; Stop 08/04/17 at 09:36; Status DC Hydralazine HCl (Apresoline) 25 mg Q12HR PO Last administered on 07/31/17at 07:42 ; Start 07/31/17 at 09:00; Stop 07/31/17 at 09:00; Status DC Furosemide (Lasix Inj) 40 mg BID@09,18 IV PUSH Last administered on 08/02/17at 10 :33; Start 07/31/17 at 09:00; Stop 08/02/17 at 13:29; Status DC Dextrose (D50w (Vial) Inj) 50 ml UNSCH PRN IV PUSH HYPOGLYCEMIA-SEE COMMENTS; Start 07/31/17 at 07:45 Glucagon (Glucagon Inj) 1 mg UNSCH PRN OTHER HYPOGLYCEMIA-SEE COMMENTS; Start 07/31/17 at 07:45 Insulin Aspart (NovoLOG SUPPLEMENTAL SCALE) 1 Q6H SQ ; Start 07/31/17 at 07:45; Stop 08/01/17 at 17:31; Status DC Sodium Chloride 250 ml @ 15 mls/hr ONCE ONCE IV Last administered on at 10:55; Start 07/31/17 at 08:15; Stop 08/01/17 at 00:54; Status DC Terazosin HCl (Hytrin) 10 mg HS PO Last administered on 08/05/17at 20:12; Start 07/31/17 at 21:00; Stop 08/06/17 at 13:26; Status DC Hydralazine HCl (Apresoline) 100 mg Q12HR PO Last administered on 08/05/17at 20: 13; Start 07/31/17 at 09:00; Stop 08/06/17 at 09:42; Status DC Levetriacetam 500 mg/Sodium Chloride 105 ml @ 420 mls/hr Q12HR IV Last administered on 08/06/17at 07:57; Start 08/01/17 at 10:00; Stop 08/06/17 at 09:42 ; Status DC Dextrose 1,000 ml @ 42 mls/hr [id number] IV Last administered on 08/01/17at 13:09; Start 08/01/17 at 12:00; Stop 08/01/17 at 16:51; Status DC Chlorothiazide Sodium (Diuril Inj) 250 mg Q12H IV Last administered on at 13:15; Start 08/01/17 at 13:00; Stop 08/02/17 at 13:29; Status DC Clonidine (Catapres-Tts 0.2 Mg Patch.7d) 1 patch Q7D T-DERMAL ; Start 08/01/17 at 13:30; Stop 08/01/17 at 15:09; Status DC Clonidine (Catapres-Tts 0.2 Mg Patch.7d) 1 patch Q7D T-DERMAL ; Start 08/01/17 at 16:00; Stop 08/01/17 at 17:30; Status DC Miscellaneous Information 1 Q7D T-DERMAL ; Start 08/08/17 at 16:00; Stop at 16:00; Status DC Senna/Docusate Sodium (Jackelyn-Colace) 1 tab BID PO Last administered on at 07:57; Start 08/01/17 at 21:00 Lactulose (Lactulose Liq) 30 ml DAILY PO Last administered on 08/06/17at 07:56; Start 08/01/17 at 16:15 Bisacodyl (Dulcolax Supp) 10 mg DAILY PRN RECTAL Constipation; Start 08/01/17 at 16:15 Clonidine (Catapres-Tts 0.2 Mg Patch.7d) 1 patch Q7D T-DERMAL Last administered on 08/01/17at 20:31; Start 08/01/17 at 20:00; Stop 08/05/17 at 09:18; Status DC Miscellaneous Information 1 Q7D T-DERMAL ; Start 08/01/17 at 20:00; Stop 08/05/17 at 09:18; Status DC Insulin Aspart (NovoLOG SUPPLEMENTAL SCALE) 1 Q6HR SQ Last administered on 08/07at 05:36; Start 08/01/17 at 18:00 Sodium Bicarbonate (Sodium Bicarbonate 8.4% Inj) 50 meq UNSCH X1 IV Last administered on 08/02/17at 05:41; Start 08/02/17 at 05:45; Stop 08/02/17 at 08:20; Status DC Chlorothiazide Sodium (Diuril Inj) 500 mg Q12H IV Last administered on at 01:08; Start 08/03/17 at 01:00 Furosemide (Lasix Inj) 80 mg BID@18 IV PUSH Last administered on 08/04/17 18 :34; Start 08/02/17 at 18:00; Stop 08/04/17 at 19:28; Status DC Albuterol/ Ipratropium (Duoneb Neb) 1 ampule Q6HR NEB NEB Last administered on 08/06/17 07:52; Start 08/02/17 at 22:00; Stop 08/06/17 at 09:35; Status DC Metoprolol Tartrate (Lopressor Inj) 5 mg Q6H IV PUSH Last administered on 10:01; Start 08/04/17 at 10:00 Hydralazine HCl (Apresoline Inj) 10 mg Q4HR PRN IV PUSH SBP>160, DBP>90 Last administered on 08/08/17 01:16; Start 08/04/17 at 12:30 Furosemide (Lasix Inj) 80 mg Q8HR IV PUSH Last administered on 08/08/17 13:22 ; Start 08/04/17 at 22:00 Sodium Bicarbonate (Sodium Bicarbonate 8.4% Inj) 100 meq STK-MED ONCE .ROUTE Last administered on 08/05/17 05:25; Start 08/05/17 at 05:25; Stop 08/05/17 at 05: 26; Status DC Bisacodyl (Dulcolax Supp) 10 mg ONCE ONCE RECTAL Last administered on 08:03; Start 08/05/17 at 07:45; Stop 08/05/17 at 07:46; Status DC Magnesium Hydroxide (Milk Of Magnesia Liq) 30 ml BID PO Last administered on 07:56; Start 08/05/17 at 09:00 Clonidine (Catapres-Tts 0.3 Mg Patch.7d) 1 patch Q7D T-DERMAL Last administered on 08/05/17 11:49; Start 08/05/17 at 11:00 Metoclopramide HCl (Reglan Inj) 5 mg Q8HR IV PUSH Last administered on 13:22; Start 08/05/17 at 14:00 Amlodipine Besylate (Norvasc) 5 mg DAILY PO Last administered on 3/9/18at 09:18 ; Start 08/05/17 at 09:15; Stop 08/06/17 at 09:42; Status DC Dextrose (D50w (Syr) Inj) 50 ml ONCE ONCE IV PUSH Last administered on at 10:44; Start 08/05/17 at 09:15; Stop 08/05/17 at 09:16; Status DC Insulin Human Regular (NovoLIN R INJ) 10 units ONCE ONCE IV PUSH Last administered on 08/05/17at 10:53; Start 08/05/17 at 09:15; Stop 08/05/17 at 09:16; Status DC Sodium Polystyrene Sulfonate (Kayexalate Liq) 15 gm Q2HR PO Last administered on 08/05/17at 15:02; Start 08/05/17 at 10:00; Stop 08/05/17 at 14:02; Status DC Heparin Sodium (Porcine) (Heparin Inj) 5,000 units Q8HR SQ Last administered on 08/06/17 06:13; Start 08/05/17 at 14:00; Status Future Hold Miscellaneous Information 1 Q7D T-DERMAL ; Start 08/12/17 at 11:00 Sodium Chloride 1,000 ml @ 0 mls/hr Q0M PRN OTHER For Prime & Rinse Back; Start 08/05/17 at 13:51 Sodium Chloride 1,000 ml @ 200 mls/hr Q5H PRN IV WITH DIALYSIS Last administered on 08/06/17at 13:21; Start 08/05/17 at 13:51 Sodium Chloride 1,000 ml @ 0 mls/hr Q0M PRN OTHER WITH DIALYSIS; Start 08/05/17 at 13:51 Albumin Human 100 ml @ 60 mls/hr UNSCH PRN IV WITH DIALYSIS Last administered on 08/07/17at 09:41; Start 08/05/17 at 14:00 Sodium Chloride (NS Flush) 5 ml UNSCH PRN IV FLUSH WITH DIALYSIS; Start at 14:00 Heparin Sodium (Porcine) (Heparin Inj) UNSCH PRN .XX WITH DIALYSIS Last administered on 08/07/17at 09:19; Start 08/05/17 at 14:00 Gentamicin Sulfate (Gentamicin Inj) 20 mg UNSCH PRN OTHER WITH DIALYSIS Last administered on 08/07/17at 09:20; Start 08/05/17 at 14:00 Ondansetron HCl (Zofran Inj) 4 mg UNSCH PRN IV PUSH WITH DIALYSIS; Start at 14:00 Acetaminophen (Tylenol) 650 mg UNSCH PRN PO for headach, pain, temp > 101F; Start 08/05/17 at 14:00 Diphenhydramine HCl (Benadryl) 25 mg UNSCH PRN PO for hives/itching/anaphylaxis ; Start 08/05/17 at 14:00 Nitroglycerin (Nitrostat Sl) 0.4 mg UNSCH PRN SL CHEST PAIN; Start 08/05/17 at 14:00 Clonidine (Catapres) 0.1 mg UNSCH PRN PO for BP > 180/100 X 2 readings Last administered on 08/08/17at 01:57; Start 08/05/17 at 14:00 Gelatin (Gelfoam 12 Mm/7 Mm Top) 1 foam UNSCH PRN TOP SEE LABEL COMMENTS; Start 08/05/17 at 14:00 Heparin Sodium (Porcine) (Heparin Inj) 10,000 units NOW ONCE IV PUSH Last administered on 08/05/17at 17:10; Start 08/05/17 at 17:00; Stop 08/05/17 at 17:07; Status DC Nicardipine HCl 50 mg/Sodium Chloride 500 ml @ 50 mls/hr TITRATE PRN IV Blood pressure management Last administered on 08/08/17at 13:01; Start 08/06/17 at 00: 15 Albuterol/ Ipratropium (Duoneb Neb) 1 ampule Q6HR NEB NEB Last administered on 08/08/17 16:43; Start 08/06/17 at 10:00 Albuterol Sulfate (Albuterol Neb) 2.5 mg Q2HR NEB PRN NEB dyspnea; Start at 09:45 Amlodipine Besylate (Norvasc) 10 mg DAILY PO Last administered on 08/08/17 08: 33; Start 08/07/17 at 09:00 Hydralazine HCl (Apresoline) 100 mg Q8HR PO Last administered on 08/08/17 13: 22; Start 08/06/17 at 14:00 Levetriacetam (Keppra Liq) 500 mg Q12HR NG Last administered on 3/12/18at 08: 33; Start 08/06/17 at 21:00; Stop 08/08/17 at 10:14; Status DC Lactulose (Lactulose Liq) 30 ml QID PO Last administered on 08/08/17at 08:34; Start 08/06/17 at 13:00 Polyethylene Glycol (Miralax) 17 gm BID NG Last administered on 08/07/17at 20:27 ; Start 08/06/17 at 21:00 Mineral Oil (Kondremul Liq) 30 ml ONCE ONCE PO Last administered on 08/06/17at 14:44; Start 08/06/17 at 09:45; Stop 08/06/17 at 10:42; Status DC Glycerin (Glycerin Adult Supp) 2 gm ONCE ONCE RECTAL Last administered on 08/06at 14:44; Start 08/06/17 at 09:45; Stop 08/06/17 at 10:40; Status DC Methylnaltrexone [place] (Relistor Inj) 12 mg ONCE ONCE SQ Last administered on 08/06/17at 14:44; Start 08/06/17 at 09:45; Stop 08/06/17 at 10:42; Status DC Allopurinol (Zyloprim) 100 mg DAILY PO Last administered on 08/08/17at 08:33; Start 08/07/17 at 09:00 Terazosin HCl (Hytrin) 7 mg BID NG Last administered on 08/08/17at 10:02; Start 08/06/17 at 13:30 Diltiazem HCl (Cardizem Inj) 20 mg ONCE ONCE IV PUSH ; Start 08/06/17 at 22:45 ; Stop 08/06/17 at 22:46; Status Cancel Diltiazem HCl 125 mg/Sodium Chloride 125 ml @ 5 mls/hr TITRATE PRN IV Tachycardia Last administered on 08/07/17at 00:25; Start 08/06/17 at 22:45 Diltiazem HCl (Cardizem Inj) 20 mg ONCE ONCE IV Last administered on at 23:25; Start 08/06/17 at 23:30; Stop 08/06/17 at 23:31; Status DC Mannitol 100 ml @ As Directed STK-MED ONCE .ROUTE ; Start 08/07/17 at 07:16; Stop 08/07/17 at 07:17; Status DC Sodium Bicarbonate (Sodium Bicarbonate 8.4% Inj) 50 meq NOW ONCE IV Last administered on 08/07/17at 07:51; Start 08/07/17 at 07:45; Stop 08/07/17 at 07:46 ; Status DC Diltiazem HCl (Cardizem Inj) 25 mg STK-MED ONCE .ROUTE Last administered on 04/16at 07:51; Start 08/07/17 at 07:36; Stop 08/07/17 at 07:37; Status DC Sodium Bicarbonate (Sodium Bicarbonate 8.4% Inj) 50 meq ONCE ONCE IV PUSH ; Start 08/07/17 at 08:30; Stop 08/07/17 at 08:31; Status DC Metoprolol Tartrate (Lopressor Inj) 2.5 mg Q6H PRN IV PUSH HR >120 Last administered on 08/08/17at 08:35; Start 08/07/17 at 07:45 Cefepime HCl 1000 mg/Sodium Chloride 100 ml @ 200 mls/hr Q12H IV Last administered on 08/08/17at 09:43; Start 08/07/17 at 10:00 Vancomycin HCl 1000 mg/Sodium Chloride 250 ml @ 250 mls/hr ONCE ONCE IV Last administered on 08/07/17at 10:34; Start 08/07/17 at 09:00; Stop 08/07/17 at 09:59 ; Status DC Diltiazem HCl (Cardizem Inj) 15 mg ONCE ONCE IV ; Start 08/07/17 at 08:30; Stop 08/07/17 at 08:31; Status DC Carvedilol (Coreg) 12.5 mg Q12HR PO Last administered on 08/08/17at 09:50; Start 08/08/17 at 09:00 Potassium Chloride 100 ml @ 50 mls/hr NOW ONCE IV Last administered on at 11:54; Start 08/08/17 at 11:00; Stop 08/08/17 at 12:59; Status DC (Les Horne MD) Medical Decision Making MDM Remarks 82-year-old gentleman who fell backwards off of a ladder approximately 10 feet TBI, s/p placement of intracranial pressure monitor with stable ICPs CT Brain 07/31/17: increase in the size of the left subdural hematoma. Stable right subdural hematoma. Increase in size of the right temporal tip hematoma. Stable size left temporal hematoma 08/02/27: Stable intraparenchymal, subdural, and intraventricular hemorrhage. No midline shift or new sites of hemorrhage. 08/04/17 reports Stable intracranial findings including bilateral subdural hematomas, intraventricular blood products, and bilateral temporal lobe hemorrhagic contusions There is no midline shift or herniation. Ventricles are stable in size. (Kathe Murphy) Plan Plan Remarks cont serial neuro checks and f/u neuro exam cont mgt per trauma (Kathe Murphy) Attending Statement Receiving Dialysis, still in critical condition. His pulmonary condition has deteriorated Pulmonary. Continue full mechanical ventilation in Assist control mode of ventilation aggressive pulmonary toilette, nasotracheal suction, and breathing treatments with nebulizers. Daily PT and OT Renal. monitor closely urine output, BUN and creatinine Endocrine.Monitor serial Acu checks and SSI as needed in detail ID monitor for signs of infection Protonix for stress ulcer prophylaxis Gilbert hose and SCD's for DVT prophylaxis Further recommendations will be provided depending on the patient's clinical evaluation and follow up studies The exam, history, and the medical decision-making described in the above note were completed with the assistance of the mid-level provider. I reviewed and agree with the findings presented. I attest that I had a [id number] encounter with the patient on the same day, and personally performed and documented my assessment and findings in the medical record. (Les Horne MD) Kathe Murphy Aug 08, 2017 13:38 Les Horne MD Aug 08, 2017 16:59
--- NOTE | 2017-08-08 15:01 | HHI.HCPN ---
Reason for visit a. To assist with evaluation and management of symptoms including: pain, dyspnea, encephalopathy b. To assist medical decision maker(s) with: better understanding of current medical conditions; weighing benefits/burdens of medical treatment options; making medical treatment decisions. . Subjective/Interval History Follow-up for symptom management and clarification of medical treatment goals. Patient [facility], [facility]. Patient remains intubated on mechanical ventilation; FiO2 50%, PEEP 8. On Cardene and Cardizem drip. Antibiotics started yesterday for dense basilar consolidation bilaterally, WBC count slightly improved today. Urine culture growing staph WBC: 12.3, hemoglobin 7.7, hematocrit 22.9, platelets 79, potassium 3.2, BUN 40 , creatinine 3.16, GFR 19, PT 10.2, INR 1.0, APTT 28.0 Patient remains minimally on responsive during sedation vacation. Does not arouse to verbal stimuli; withdraws lower extremities to touch. Follow-up CT brain on 08/04/17 revealed stable intracranial findings including bilateral subdural hematomas, intraventricular blood products and bilateral temporal lobe hemorrhagic contusions. No midline shift or herniation. Ventricle size stable. Patient had HD yesterday 3.5 L removed. Urine output approximately 500 mL's in the past 24 hours. . Advance Directives Advance Directive Specifics Documented care wishes: Patient reportedly has completed written advanced directives. Son, Darryn, will bring copies of documentation to the hospital tomorrow 08/04/2017 so that copies can be placed in the patient's chart and scanned into the EMR. . Objective Vital Signs Date Time Temp Pulse Resp B/P (MAP) Pulse Ox O2 Delivery O2 Flow Rate FiO2 08/08/17 13:01 103 143/60 08/08/17 12:00 50 08/08/17 12:00 102 08/08/17 12:00 99.1 109 23 147/67 (93) 96 08/08/17 10:00 97 08/08/17 09:08 101 161/70 08/08/17 09:03 95 50 08/08/17 08:00 50 08/08/17 08:00 99.0 97 24 153/69 (97) 95 08/08/17 08:00 97 08/08/17 06:00 72 08/08/17 04:00 50 08/08/17 04:00 68 08/08/17 04:00 98.3 80 16 162/69 (100) 97 08/08/17 03:50 96 50 08/08/17 02:37 71 183/84 08/08/17 02:00 71 08/08/17 01:09 95 50 08/08/17 00:57 97 50 08/08/17 00:00 50 08/08/17 00:00 98.2 74 19 148/73 (98) 97 08/08/17 00:00 64 08/07/17 20:19 100 50 08/07/17 20:00 50 08/07/17 20:00 63 08/07/17 20:00 98.6 60 17 155/65 (95) 98 08/07/17 16:00 50 08/07/17 16:00 98.1 60 12 110/54 (72) 98 08/07/17 15:16 100 50 08/07/17 15:00 58 08/07/17 15:00 58 Intake & Output 08/08/17 08/08/17 07:00 19:00 Intake Total 918.4 ml 965 ml Output Total 300 ml 100 ml Balance 618.4 ml 865 ml IV Total 918.4 ml 965 ml Output Urine Total 300 ml Gastric Drainage Total 100 ml # Bowel Movements 3 . Physical Exam CONSTITUTIONAL/GENERAL: This is an adequately nourished elderly, male patient currently intubated on mechanical ventilation TUBES/LINES/DRAINS: PIV 3, Dockery catheter, ETT, OGT SKIN: No jaundice, rashes, or lesions. Ecchymoses on upper extremities. Skin temperature appropriate. Not diaphoretic. HEAD: Atraumatic. Normocephalic. EYES: Pupils equal and round and sluggish. No scleral icterus. No injection or drainage. Fundi not examined. ENT: Unable to assess hearing given current clinical condition. Nose without bleeding or purulent drainage. NECK: Trachea midline. Supple, nontender. No palpable thyroid enlargement or nodularity. CARDIOVASCULAR: Irregularly irregular without murmurs, gallops, or rubs. No JVD. Peripheral pulses symmetric. Generalized edema RESPIRATORY/CHEST: Intubated on mechanical ventilation. Increased upper airway secretions GASTROINTESTINAL: Abdomen soft, non-tender, nondistended. Bowel sounds present. GENITOURINARY: Without palpable bladder distension. Dockery catheter in place with minimal urine output MUSCULOSKELETAL: Extremities without clubbing or cyanosis. LYMPHATICS: No palpable cervical or supraclavicular adenopathy. NEUROLOGICAL: Minimally responsive during sedation vacation. Does not arouse to verbal stimuli. Withdraws lower extremities to noxious stimuli but upper extremities remain flaccid. PSYCHIATRIC: Unable to assess given clinical condition. . Diagnostic Tests Laboratory Laboratory Tests Test 08/05/17 17:10 08/06/17 03:46 08/06/17 04:35 08/07/17 04:20 Blood Urea Nitrogen 80 MG/DL (7-18) 60 MG/DL (7-18) 53 MG/DL (7-18) Creatinine 4.33 MG/DL (0.60-1.30) 3.55 MG/DL (0.60-1.30) 3.16 MG/DL (0.60-1.30) Random Glucose 99 MG/DL (74-106) 112 MG/DL (74-106) 161 MG/DL (74-106) Calcium Level 7.7 MG/DL (8.5-10.1) 7.9 MG/DL (8.5-10.1) 8.3 MG/DL (8.5-10.1) Sodium Level 151 MEQ/L (136-145) 147 MEQ/L (136-145) 144 MEQ/L (136-145) Potassium Level 3.5 MEQ/L (3.5-5.1) 3.5 MEQ/L (3.5-5.1) 3.4 MEQ/L (3.5-5.1) Chloride Level 119 MEQ/L (98-107) 113 MEQ/L (98-107) 107 MEQ/L (98-107) Carbon Dioxide Level 18.5 MEQ/L (21.0-32.0) 21.5 MEQ/L (21.0-32.0) 20.1 MEQ/L (21.0-32.0) Anion Gap 14 MEQ/L (5-15) 13 MEQ/L (5-15) 17 MEQ/L (5-15) Estimat Glomerular Filtration Rate 13 ML/MIN (>89) 17 ML/MIN (>89) 19 ML/MIN (>89) Hepatitis A IgM Antibody NEGATIVE (NEGATIVE) Hepatitis B Surface Antigen NEGATIVE (NEGATIVE) Hepatitis B Core IgM Antibody NEGATIVE (NEGATIVE) Hepatitis C Antibody NEGATIVE (NEGATIVE) White Blood Count 10.6 TH/MM3 (4.0-11.0) 14.1 TH/MM3 (4.0-11.0) Red Blood Count 2.96 MIL/MM3 (4.50-5.90) 3.32 MIL/MM3 (4.50-5.90) Hemoglobin 8.6 GM/DL (13.0-17.0) 9.6 GM/DL (13.0-17.0) Hematocrit 25.5 % (39.0-51.0) 28.8 % (39.0-51.0) Mean Corpuscular Volume 86.3 FL (80.0-100.0) 86.8 FL (80.0-100.0) Mean Corpuscular Hemoglobin 29.0 PG (27.0-34.0) 28.8 PG (27.0-34.0) Mean Corpuscular Hemoglobin Concent 33.6 % (32.0-36.0) 33.2 % (32.0-36.0) Red Cell Distribution Width 24.1 % (11.6-17.2) 24.0 % (11.6-17.2) Platelet Count 99 TH/MM3 (150-450) 96 TH/MM3 (150-450) Mean Platelet Volume 9.5 FL (7.0-11.0) 10.0 FL (7.0-11.0) Neutrophils (%) (Auto) 78.3 % (16.0-70.0) 85.1 % (16.0-70.0) Lymphocytes (%) (Auto) 6.4 % (9.0-44.0) 4.2 % (9.0-44.0) Monocytes (%) (Auto) 13.5 % (0.0-8.0) 10.1 % (0.0-8.0) Eosinophils (%) (Auto) 1.5 % (0.0-4.0) 0.3 % (0.0-4.0) Basophils (%) (Auto) 0.3 % (0.0-2.0) 0.3 % (0.0-2.0) Neutrophils # (Auto) 8.3 TH/MM3 (1.8-7.7) 12.0 TH/MM3 (1.8-7.7) Lymphocytes # (Auto) 0.7 TH/MM3 (1.0-4.8) 0.6 TH/MM3 (1.0-4.8) Monocytes # (Auto) 1.4 TH/MM3 (0-0.9) 1.4 TH/MM3 (0-0.9) Eosinophils # (Auto) 0.2 TH/MM3 (0-0.4) 0.0 TH/MM3 (0-0.4) Basophils # (Auto) 0.0 TH/MM3 (0-0.2) 0.0 TH/MM3 (0-0.2) CBC Comment AUTO DIFF AUTO DIFF Differential Total Cells Counted 100 Neutrophils % (Manual) 73 % (16-70) Band Neutrophils % 5 % (0-6) Lymphocytes % 6 % (9-44) Monocytes % 15 % (0-8) Basophils % 1 % (0-2) Neutrophils # (Manual) 8.3 TH/MM3 (1.8-7.7) Differential Comment FINAL DIFF MANUAL AUTO DIFF CONFIRMED Platelet Estimate LOW (NORMAL) Platelet Morphology Comment NORMAL (NORMAL) Ovalocytes 1+ (NORMAL) 1+ (NORMAL) Acanthocytes 1+ (NORMAL) Total Protein 5.6 GM/DL (6.4-8.2) Albumin 2.5 GM/DL (3.4-5.0) 2.4 GM/DL (3.4-5.0) Alkaline Phosphatase 114 U/L (45-117) Aspartate Amino Transf (AST/SGOT) 16 U/L (15-37) Alanine Aminotransferase (ALT/SGPT) 10 U/L (12-78) Total Bilirubin 1.0 MG/DL (0.2-1.0) Blood Gas Puncture Site ART LINE Blood Gas Patient Temperature 98.6 Blood Gas HCO3 20 mmol/L (22-26) Blood Gas Base Excess -5.2 mmol/L (-2-2) Blood Gas Oxygen Saturation 92 % (90-100) Arterial Blood pH 7.32 (7.380-7.420) Arterial Blood Partial Pressure CO2 40 mmHg (38-42) Arterial Blood Partial Pressure O2 78 mmHg (61-120) Arterial Blood Oxygen Content 11.9 Vol % (12.0-20.0) Arterial Blood Carboxyhemoglobin 1.3 % (0-4) Arterial Blood Methemoglobin 1.1 % (0-2) Blood Gas Hemoglobin 9.1 G/DL (12.0-16.0) Oxygen Delivery Device VENTILATOR Blood Gas Ventilator Setting SEE COMMENTS Blood Gas Inspired Oxygen 40 % Tear Drop Cells 1+ (NORMAL) Phosphorus Level 5.9 MG/DL (2.5-4.9) Magnesium Level 2.4 MG/DL (1.5-2.5) Test 08/07/17 06:35 08/07/17 15:38 08/07/17 23:05 08/08/17 05:00 Blood Gas Puncture Site LT RADIAL Blood Gas Patient Temperature 98.6 Blood Gas HCO3 16 mmol/L (22-26) Blood Gas Base Excess -7.7 mmol/L (-2-2) Blood Gas Oxygen Saturation 91 % (90-100) Arterial Blood pH 7.41 (7.380-7.420) Arterial Blood Partial Pressure CO2 26 mmHg (38-42) Arterial Blood Partial Pressure O2 72 mmHg (61-120) Arterial Blood Oxygen Content 16.0 Vol % (12.0-20.0) Arterial Blood Carboxyhemoglobin 1.0 % (0-4) Arterial Blood Methemoglobin 0.9 % (0-2) Blood Gas Hemoglobin 12.4 G/DL (12.0-16.0) Oxygen Delivery Device VENTILATOR Blood Gas Ventilator Setting PRVC / AC / Blood Gas Inspired Oxygen 60 % Total Creatine Kinase 164 U/L (39-308) Potassium Level 3.3 MEQ/L (3.5-5.1) 3.2 MEQ/L (3.5-5.1) White Blood Count 12.3 TH/MM3 (4.0-11.0) Red Blood Count 2.66 MIL/MM3 (4.50-5.90) Hemoglobin 7.7 GM/DL (13.0-17.0) Hematocrit 22.9 % (39.0-51.0) Mean Corpuscular Volume 86.0 FL (80.0-100.0) Mean Corpuscular Hemoglobin 29.0 PG (27.0-34.0) Mean Corpuscular Hemoglobin Concent 33.8 % (32.0-36.0) Red Cell Distribution Width 23.9 % (11.6-17.2) Platelet Count 79 TH/MM3 (150-450) Mean Platelet Volume 10.2 FL (7.0-11.0) Neutrophils (%) (Auto) 84.9 % (16.0-70.0) Lymphocytes (%) (Auto) 4.7 % (9.0-44.0) Monocytes (%) (Auto) 9.2 % (0.0-8.0) Eosinophils (%) (Auto) 0.9 % (0.0-4.0) Basophils (%) (Auto) 0.3 % (0.0-2.0) Neutrophils # (Auto) 10.4 TH/MM3 (1.8-7.7) Lymphocytes # (Auto) 0.6 TH/MM3 (1.0-4.8) Monocytes # (Auto) 1.1 TH/MM3 (0-0.9) Eosinophils # (Auto) 0.1 TH/MM3 (0-0.4) Basophils # (Auto) 0.0 TH/MM3 (0-0.2) CBC Comment AUTO DIFF Differential Comment AUTO DIFF CONFIRMED Tear Drop Cells 1+ (NORMAL) Ovalocytes 1+ (NORMAL) Blood Urea Nitrogen 45 MG/DL (7-18) Creatinine 3.16 MG/DL (0.60-1.30) Random Glucose 143 MG/DL (74-106) Calcium Level 8.6 MG/DL (8.5-10.1) Sodium Level 142 MEQ/L (136-145) Chloride Level 103 MEQ/L (98-107) Carbon Dioxide Level 23.3 MEQ/L (21.0-32.0) Anion Gap 16 MEQ/L (5-15) Estimat Glomerular Filtration Rate 19 ML/MIN (>89) . Result Diagram: 08/08/17 0500 08/08/17 0500 Microbiology Microbiology Date/Time Source Procedure Growth Status 08/07/17 09:15 Blood Peripheral Aerobic Blood Culture - Preliminary NO GROWTH IN 1 DAY Resulted 08/07/17 09:15 Blood Peripheral Anaerobic Blood Culture - Preliminary NO GROWTH IN 1 DAY Resulted 08/07/17 09:08 Blood Peripheral Aerobic Blood Culture - Preliminary NO GROWTH IN 1 DAY Resulted 08/07/17 09:08 Blood Peripheral Anaerobic Blood Culture - Preliminary NO GROWTH IN 1 DAY Resulted 08/07/17 10:00 Urine Catheterized Urine Urine Culture - Preliminary Staphylococcus Aureus Resulted Imaging Last 72 hours Impressions Chest X-Ray 08/08/17 0600 Signed Impressions: Service Date/Time: Tuesday, August 08, 2017 04:59 - CONCLUSION: Unchanged bibasilar infiltrates. Pepe Segura Jr., MD Chest X-Ray 08/07/17 1318 Signed Impressions: Service Date/Time: Monday, August 07, 2017 13:29 - CONCLUSION: 1. Right and left central lines in superior vena cava. No pneumothorax. Stable basilar airspace disease. Endotracheal tube and nasogastric tube unchanged. Charles Neal MD Chest X-Ray 08/07/17 0600 Signed Impressions: Service Date/Time: Monday, August 07, 2017 05:12 - CONCLUSION: No significant change. Ra Ballard MD Abdomen X-Ray 08/07/17 0600 Signed Impressions: Service Date/Time: Monday, August 07, 2017 05:16 - CONCLUSION: Benign- appearing abdomen. Nasogastric tube tip is in the upper stomach. Ra Ballard MD Chest CT 08/07/17 0000 Signed Impressions: Service Date/Time: Monday, August 07, 2017 08:36 - CONCLUSION: 1. Bilateral lower lobe consolidating airspace disease. 2. Small to moderate bilateral pleural effusions. 3. Cardiomegaly. Eliud Gar MD Chest X-Ray 08/06/17 0600 Signed Impressions: Service Date/Time: Sunday, August 06, 2017 02:56 - CONCLUSION: 1. Slightly improved bibasilar consolidation and small effusions. 2. No change mild cardiomegaly. Ra Ballard MD Chest X-Ray 08/06/17 0000 Signed Impressions: Service Date/Time: Sunday, August 06, 2017 18:13 - CONCLUSION: Endotracheal tube in good position. NG enters stomach. Bilateral mostly basilar airspace disease and pleural effusions, similar to exam from earlier today. Charles Neal MD . Procedures 07/30/2017: Intubation 07/30/2017: ICP monitor placed . Assessment and Plan Disease Oriented Problem List: (1) Congestive heart failure (2) Anemia (3) Acute kidney insufficiency (4) Respiratory failure (5) Hypertensive emergency (6) Intracranial bleed (7) Edema due to congestive heart failure (8) Major neurocognitive disorder as late effect of traumatic brain injury without behavioral disturbance Symptom Scale: (1) Pain (2) Encephalopathy (3) Dyspnea Pertinent Non-Medical Issues Psychosocial: Patient is originally from [place]. He dated his (Kristin ) in high school, and they have now been for approximately 62 years. 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 Together they have 4 adult children, 10 grandchildren and 5 great-grandchildren. Spiritual: Anglican thanh Legal: Unclear. Per [place] statutes, in the absence of written advance directives healthcare proxy decision making would fall to the patient's . Patient also has 4 adult children. Danielle and Darryn who live locally have verbally indicated that Danielle is the healthcare surrogate decision maker. Awaiting copies of documentation which should be received tomorrow 08/03/17 Ethical issues impacting care: No known ethical issues impacting care. . Important Contacts Kristin Alonzo, : [phone] Danielle Adkins, daughter: [phone] Darryn Alonzo, son: [phone] . Prognosis Patient is an 82-year-old male who has suffered severe brain trauma which is complicated by multiple comorbid conditions. Prognosis is very poor, and the patient may not survive this hospitalization. . Code Status: Full Code Plan * FULL CODE * Decision making: Unclear. Per [place] statutes, in the absence of written advance directives healthcare proxy decision making would fall to the patient's . However patient's appears to have some mild cognitive deficit and does not appear to be capacitated to make medical decisions for her at this time. Patient also has 4 adult children. Danielle and Darryn who live locally have verbally indicated that Danielle is the healthcare surrogate decision maker, requested copies of written advance directives again today on 08/05/2017. * Discussed patient with nurse * Patient's son (Darryn) has indicated that the entire family is in agreement and plan to provide ongoing support, including trach and PEG placement if indicated, to allow the patient time to heal. Darryn did not specify a time frame, but states if the patient does not improve they will stop everything "down the road" because he would not want to live long-term on artificial life support. * Symptom management: = Encephalopathy: Patient remains encephalopathic status post subdural and subarachnoid hemorrhages. Remains minimally responsive during sedation vacation. Patient withdraws lower extremities to noxious stimuli, upper extremities remain flaccid. Follow-up CT brain on 08/04/17 revealed stable intracranial findings including bilateral subdural hematomas, intraventricular blood products and bilateral temporal lobe hemorrhagic contusions. No midline shift or herniation. Ventricle size stable. Critical care stating patient's prognosis is very poor with minimal likelihood of any meaningful neurological recovery. = Dyspnea: Patient remains intubated on mechanical ventilation. FiO2 50%; PEEP 8. Chest x-ray with bilateral basilar infiltrates left more than right. Increased yellow ET tube secretions. Start cefepime 1 gm IV q12 and vancomycin 1 gm IV x1 * Palliative care will follow this patient throughout his hospitalization to establish trust, assist with symptom management and clarification of medical treatment goals . Attestation To help prompt me to consider important information that might be impacting today's encounter and assessment, information from prior notes written by myself or my colleagues may have been "brought forward" into today's note. My signature on this note, however, is an attestation that I personally performed the exam, history, and/or decision-making noted today, and, unless otherwise indicated, the interactions with patient, family, and staff as well as the review of records all occurred today. I also attest that the listed assessment and stated plan reflect my best clinical judgment today based on the combination of historical information, prior notes, and today's exam/ interactions. When time spent is documented, it refers only to time spent today by the signer, or if indicated, combined time spent today by collaborating physician/nurse practitioner. . Elyssa Ricardo Aug 08, 2017 15:01
[2017-08-08] MEDS ORDERED: REMOVE OLD CATAPRES (CLONIDINE) PATCH T-DERMAL SCH (16:00)
--- NOTE | 2017-08-08 16:11 | HHI.CCPN ---
Subjective Brief History TANACROSS: This is a 82-year-old gentleman who fell backwards off of a ladder with brief loss of consciousness and brief round of CPR at the scene was brought in as a level II trauma alert intubated in the trauma bay and upgraded to level I. He was found to have subdural and subarachnoid hemorrhages and was given 2 units of platelets for platelet dysfunction secondary to Plavix use. Final injuries: Right temporal intraparenchymal hemorrhage with slight subdural component Left frontoparietal and temporo-occipital subdural hematoma about 1 cm thick Patient has complex history of CHF,coronary artery disease, diabetes mellitus and chronic renal insufficiency requiring dialysis in 2013. Since then patient has been off dialysis but at this point creatinine is rising. 24 Hour Review/Hospital Course 07/[address] appears to be worse today with slight increase in the size of his bleeds Is currently on a Cardene drip to maintain systolic blood pressure less than 160 , his beta stacie has been held for a heart rate in the mid 50s 08/01/2017 Patient is intubated ventilated on propofol and fentanyl ICP measurements about 5-8 mmHg Remains sedated not moving any extremities at this time Hemodynamically patient is stable with hypertension. Patient is noted to be hypertensive from home and some of medications have been reinstituted In addition to Lopressor and hydralazine patient is currently on Cardene drip in order to keep systolic blood pressure under 160 mmHg Patient will need Catapres patch in order to wean off Cardene In face of increased creatinine and BUN patient did not have IV contrast to assess the chest and abdomen but externally there are no signs of trauma to either Renal function as above noted is impaired with rising creatinine and BUN. Nephrology consult from Dr. Chavez is greatly appreciated Patient will be managed expectantly and as the neurologic function improves sedation will be gradually weaned It should be noted that severe brain trauma in this age group with related medical problems survival is very low and patient is a high mortality probably in the range of 80-90%. 08/02/2017 Patient remains intubated ventilated and sedated with all neuroprotective measures Hemodynamically patient is stable and hypertensive on several antihypertensive drugs including Cardene noted to keep systolic blood pressure under 160 mmHg Bilateral breath sounds remains ventilatory dependent in the face of decreased level of consciousness On assist control ventilation 40% FiO2 Abdomen soft nontender will start on enteral feedings Nephrology help is greatly appreciated in the care of this patient with marginal renal function and he may need intermittent dialysis should his fluid status worsened and he becomes fluid overloaded 08/03/17 severe TBI on elderly patient with multiple medical issues PRINCE superimposed on chronic renal failure compensated metabolic acidosis secondary due to renal failure diuresis initiated by tire recapping machine operator moene for BP control 08/04/2018 Patient this point is off sedation however there is no appreciable neurologic function except for some movement of upper extremities [place] Coma Scale 4 Hemodynamically patient is stable however quite hypertensive on multiple medications and even on Cardene drip difficulty controlling systolic blood pressure Cardiology help is greatly appreciated. Cardiac function intact and no signs of contusion or acute injury to the heart Bilateral breath sounds decreased over the right base were patient has a infiltrate in the right lower lobe Remains on assist control ventilation fully supported not breathing over the respirator but with good PO2 FiO2 gradient Abdomen is soft and enteral feeds of tolerated Renal function is gradually deteriorating and patient had underlying renal insufficiency prior to this event. He was on dialysis few years ago in an unrelated episode. At this point in discussions with family there is some ambiguity about which way to go. This patient has 90% mortality in 100% morbidity and most likely in the best case scenario patient will require tracheostomy feeding tube and will remain bedridden permanently 08/05/2017 PTD: 6 Mechanically ventilated and sedated Patient remains hypertensive on max Cardene. Increased clonidine patch and added Norvasc. Will have meeting with family to discuss plan of care and decision on whether to progress to dialysis. 08/06/2017 PTD: 7 Patient remains mechanically ventilated and sedated. Remains hypertensive despite numerous agents. Currently on second session of dialysis. 08/07/17 Vomited overnight and likely aspirated Respiratory distress with increased Fio2 requirements overnight Maxed out on Cardene and Cardizem gtts Getting dialysis during visit 08/08/2017 No change in neurologic status patient remains unconscious withdraws to pain [place] Coma Scale 4 Hemodynamically patient is intact however hypertension hard to control Remains on Cardene drip and a slew of antihypertensives Several rounds of V. tach in last 48 hours which resolved spontaneously Bilateral breath sounds with good PO2 FiO2 gradient and improving pulmonary function Abdomen soft Patient aspirated the other day and therefore will be kept off enteral feeds for the time being Ileus due to multiple medications including fentanyl Patient has no reasonable chance of meaningful recovery Family is not sure about tracheostomy and PEG Prognosis poor Objective Vital Signs Date Time Temp Pulse Resp B/P (MAP) Pulse Ox O2 Delivery O2 Flow Rate FiO2 08/08/17 14:00 108 08/08/17 13:01 143/60 08/08/17 12:00 50 08/08/17 12:00 99.1 23 96 Intake and Output 08/08/17 08/08/17 08/09/17 08:00 16:00 00:00 Intake Total 918.4 ml 965 ml Output Total 400 ml Balance 518.4 ml 965 ml Result Diagram: 08/08/17 0500 08/08/17 0500 Imaging Last 24 hours Impressions Chest X-Ray 08/08/17 0600 Signed Impressions: Service Date/Time: Tuesday, August 08, 2017 04:59 - CONCLUSION: Unchanged bibasilar infiltrates. Pepe Segura Jr., MD Exam [employer] OFFICER Patient on small dose fentanyl of propofol No improve with neurologic function Hemodynamic/Cardiac Hemodynamically plagued by severe hypertension Pulmonary/Respiratory Bilateral breath sounds good pulmonary exchange and PO2 FiO2 gradient now improving Patient aspirated few days ago while vomiting residuals and lung function temporarily worsen but no starting to improve Abdomen/GI Nutrition Abdomen soft will hold off feedings for a little bit Renal/I&O Renal function is slowly worsening and creatinine BUN is creeping up Continues on dialysis Hematologic Anemic will transfuse 1 unit of PRBC Thrombocytopenia however in absence of active bleeding no need for platelet transfusion Vascular Central Line Catheter Side: Right Location: Internal, Jugular (Vas cath) Assessment and Plan Assessment: (1) Congestive heart failure ICD Code: I50.9 - Heart failure, unspecified Status: Chronic (2) Anemia ICD Code: D64.9 - Anemia, unspecified Status: Chronic (3) Acute kidney insufficiency ICD Code: N28.9 - Disorder of kidney and ureter, unspecified Status: Chronic (4) Respiratory failure ICD Code: J96.90 - Respiratory failure, unspecified, unspecified whether with hypoxia or hypercapnia Status: Acute (5) CKD (chronic kidney disease) stage 3, GFR 30-59 ml/min ICD Code: N18.3 - Chronic kidney disease, stage 3 (moderate) Status: Chronic (6) Unresponsive ICD Code: R41.89 - Other symptoms and signs involving cognitive functions and awareness Status: Acute (7) Intracranial bleed ICD Code: I62.9 - Nontraumatic intracranial hemorrhage, unspecified Status: Acute (8) Hypertensive emergency ICD Code: I16.1 - Hypertensive emergency Status: Acute (9) Edema due to congestive heart failure ICD Code: I50.9 - Heart failure, unspecified Status: Chronic (10) Dyspnea ICD Code: R06.00 - Dyspnea, unspecified Status: Acute (11) Traumatic brain injury ICD Code: S06.9X9A - Unspecified intracranial injury with loss of consciousness of unspecified duration, initial encounter Status: Acute (12) Major neurocognitive disorder as late effect of traumatic brain injury without behavioral disturbance ICD Code: S06.9X9S - Unspecified intracranial injury with loss of consciousness of unspecified duration, sequela; F02.80 - Dementia in other diseases classified elsewhere without behavioral disturbance Status: Acute Plan TANACROSS: 82-year-old male who sustained a fall. He fell off a ladder approximately 10 feet, striking his head. + LOC. Short period of CPR and then the patient woke up, confused with unequal pupils. GCS 13. Systolic blood pressure = 200. Patient is on Plavix. INJURIES: Temporal SAH RIGHT temporal SDH ?Aspiration PMHx: CHF, HTN, DM, CRF, HLD, PVD, Perforated appendix- sepsis (2 years ago) Procedures: 07/30: Intubated 07/30 - 08/05 [place] NEUROLOGICAL: -Temporal SAH, RIGHT temporal SDH Neurosurgery consulted Sedated and mechanically ventilated Propofol for sedation Daily sedation vacations Goal RASS score of -2 Serial neuro checks 08/04: CT Brain - stable 08/01: CT brain - stable 07/31: CT brain - increase L SDH. Increase R temporal hemorrhage 07/30 - 08/05: ICP bolt placement Seizure precautions PO Keppra BID HOB elevated 30 degrees Hypernatremia status - 144 CARDIOVASCULAR: Cardiology consulted Patient with history of CHF, HTN, HLD, PVD Continues with Cardene and Cardizem gtts- maxed out Lopressor 5 mg IV q6 hours Hydralazine 100 mg PO BID Hytrin 7 mg PO BID Catapres patch 0.3 mg Norvasc 10 mg PO QD Diuretics - Lasix 80 IV q 8H. 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: Critical care mud engineer 07/30: Intubated Likely aspirated overnight IV Abx: Maxipime Vent bundle CT chest today shows bilateral lower lobe consolidation Patient will need tracheostomy if family decides to continue with aggressive care Palliative care consulted to assist family with goals of care Duonebs VAP protocol in place - Follow-up Labs tomorrow CXR PRN GASTROINTESTINAL: Not tolerating tube feeding Gastric residual > 1000 mL overnight OGT to LIWS TF on hold Patient will need PEG placement Bowel regimen Reglan 5 mg q 8h for increased residuals RENAL: Tank Welder consulted Patient with history of chronic renal failure Strict I&O LASIX 80 IV q 8H. Diuril 500mg BID - per nephrology Hemodialysis per nephrology Hematuria with clots requiring PRN [place] irrigation 08/01: US kidney - no hydronephrosis ENDOCRINE: Patient with history of DM SSI q 6h HEMATOLOGY: Patient with a history of chronic anemia Does not meet transfusion trigger this time 08/02: US Lower extremity study - NEGATIVE for DVT ID: Low-grade temps No leukocytosis Likely aspirated overnight IV Abx: Maxipime LINES: 07/30: ETT 07/30: OGT 08/05: R IJ vas cath 08/07: L SC TLC 07/30: [place] PROPHYLAXIS: VAP - protocol in place GI - Pepcid 10 mg BID DVT - Mechanical VTE with SCDs. SQ heparin held due to hematuria SKIN: Warm and dry Generalized edema Plan of care discussed with RN at bedside. Collaborating trauma M.Derrick. agrees with plan. Case management consulted to assist with discharge planning. Attestation Critical care 36 minutes Combination of brain injury pulmonary complications and renal failure in this gentleman is associated with 100% mortality There is absolutely no reasonable chance of meaningful recovery at this time and is imminent Problem Qualifiers (1) Congestive heart failure: Qualified Codes: I50.9 - Heart failure, unspecified (2) Anemia: Qualified Codes: D64.9 - Anemia, unspecified (3) Respiratory failure: Qualified Codes: J96.00 - Acute respiratory failure, unspecified whether with hypoxia or hypercapnia (4) Dyspnea: Qualified Codes: R06.00 - Dyspnea, unspecified (5) Traumatic brain injury: Andrea Banks MD Aug 08, 2017 16:11
--- NOTE | 2017-08-08 17:44 | PD.CARD.PN ---
Subjective Subjective Remarks Heart rates and blood pressure somewhat controlled ?NSVT on telemetry Sedation vacation, still only withdrawing from pain in lower extremities Objective Medications Current Medications Medications (Trade) Dose Ordered Sig/Juliet Route Start Time Stop Time Status Last Admin (NS Flush) 2 ml UNSCH PRN IV FLUSH 07/30/17 12:45 08/03/17 09:43 (Zofran Inj) 4 mg Q6H PRN IV PUSH 07/30/17 12:45 08/06/17 18:19 Miscellaneous Information 1 Q361D XX 07/30/17 12:45 (Chlorhexidine 2% Cloth) Taper DAILY@04 TOP 07/31/17 04:00 07/27/18 03:59 08/05/17 03:26 (Chlorhexidine 2% Cloth) 3 pack UNSCH PRN TOP 07/30/17 12:45 (Peridex 0.12% Liq) 15 ml BID@08,20 MT 07/30/17 20:00 08/08/17 08:33 Propofol 100 ml @ 2.64 mls/hr TITRATE PRN IV 07/30/17 13:30 08/08/17 06:03 (Pepcid) 10 mg BID PO 07/30/17 21:00 08/08/17 08:33 (Pravachol) 40 mg DAILY PO 07/31/17 09:00 08/08/17 08:33 (D50w (Vial) Inj) 50 ml UNSCH PRN IV PUSH 07/31/17 07:45 (Glucagon Inj) 1 mg UNSCH PRN OTHER 07/31/17 07:45 (Jackelyn-Colace) 1 tab BID PO 08/01/17 21:00 08/06/17 07:57 (Lactulose Liq) 30 ml DAILY PO 08/01/17 16:15 08/06/17 07:56 (Dulcolax Supp) 10 mg DAILY PRN RECTAL 08/01/17 16:15 (NovoLOG SUPPLEMENTAL SCALE) 1 Q6HR SQ 08/01/17 18:00 08/07/17 05:36 (Diuril Inj) 500 mg Q12H IV 08/03/17 01:00 08/08/17 01:08 (Lopressor Inj) 5 mg Q6H IV PUSH 08/04/17 10:00 08/08/17 17:14 (Apresoline Inj) 10 mg Q4HR PRN IV PUSH 08/04/17 12:30 08/08/17 01:16 (Lasix Inj) 80 mg Q8HR IV PUSH 08/04/17 22:00 08/08/17 13:22 (Milk Of Magnesia Liq) 30 ml BID PO 08/05/17 09:00 08/06/17 07:56 (Catapres-Tts 0.3 Mg Patch.7d) 1 patch Q7D T-DERMAL 08/05/17 11:00 08/05/17 11:49 (Reglan Inj) 5 mg Q8HR IV PUSH 08/05/17 14:00 08/08/17 13:22 (Heparin Inj) 5,000 units Q8HR SQ 08/05/17 14:00 Future Hold 08/06/17 06:13 Miscellaneous Information 1 Q7D T-DERMAL 08/12/17 11:00 Sodium Chloride 1,000 ml @ 0 mls/hr Q0M PRN OTHER 08/05/17 13:51 Sodium Chloride 1,000 ml @ 200 mls/hr Q5H PRN IV 08/05/17 13:51 08/06/17 13:21 Sodium Chloride 1,000 ml @ 0 mls/hr Q0M PRN OTHER 08/05/17 13:51 Albumin Human 100 ml @ 60 mls/hr UNSCH PRN IV 08/05/17 14:00 08/07/17 09:41 (NS Flush) 5 ml UNSCH PRN IV FLUSH 08/05/17 14:00 (Heparin Inj) UNSCH PRN .XX 08/05/17 14:00 08/07/17 09:19 (Gentamicin Inj) 20 mg UNSCH PRN OTHER 08/05/17 14:00 08/07/17 09:20 (Zofran Inj) 4 mg UNSCH PRN IV PUSH 08/05/17 14:00 (Tylenol) 650 mg UNSCH PRN PO 08/05/17 14:00 (Benadryl) 25 mg UNSCH PRN PO 08/05/17 14:00 (Nitrostat Sl) 0.4 mg UNSCH PRN SL 08/05/17 14:00 (Catapres) 0.1 mg UNSCH PRN PO 08/05/17 14:00 08/08/17 01:57 (Gelfoam 12 Mm/7 Mm Top) 1 foam UNSCH PRN TOP 08/05/17 14:00 Nicardipine HCl 50 mg/Sodium Chloride 500 ml @ 50 mls/hr TITRATE PRN IV 08/06/17 00:15 08/08/17 13:01 (Duoneb Neb) 1 ampule Q6HR NEB NEB 08/06/17 10:00 08/08/17 16:43 (Albuterol Neb) 2.5 mg Q2HR NEB PRN NEB 08/06/17 09:45 (Norvasc) 10 mg DAILY PO 08/07/17 09:00 08/08/17 08:33 (Apresoline) 100 mg Q8HR PO 08/06/17 14:00 08/08/17 13:22 (Lactulose Liq) 30 ml QID PO 08/06/17 13:00 08/08/17 08:34 (Miralax) 17 gm BID NG 08/06/17 21:00 08/07/17 20:27 (Zyloprim) 100 mg DAILY PO 08/07/17 09:00 08/08/17 08:33 (Hytrin) 7 mg BID NG 08/06/17 13:30 08/08/17 10:02 Diltiazem HCl 125 mg/Sodium Chloride 125 ml @ 5 mls/hr TITRATE PRN IV 08/06/17 22:45 08/07/17 00:25 (Lopressor Inj) 2.5 mg Q6H PRN IV PUSH 08/07/17 07:45 08/08/17 08:35 Cefepime HCl 1000 mg/Sodium Chloride 100 ml @ 200 mls/hr Q12H IV 08/07/17 10:00 08/08/17 09:43 (Coreg) 12.5 mg Q12HR PO 08/08/17 09:00 08/08/17 09:50 Vital Signs / I&O Vital Signs Date Time Temp Pulse Resp B/P (MAP) Pulse Ox O2 Delivery O2 Flow Rate FiO2 08/08/17 16:47 96 40 08/08/17 16:00 120 08/08/17 16:00 99.0 112 22 128/62 (84) 95 08/08/17 16:00 50 08/08/17 14:00 108 08/08/17 13:01 103 143/60 08/08/17 12:00 50 08/08/17 12:00 102 08/08/17 12:00 99.1 109 23 147/67 (93) 96 08/08/17 10:00 97 08/08/17 09:08 101 161/70 08/08/17 09:03 95 50 08/08/17 08:00 50 08/08/17 08:00 99.0 97 24 153/69 (97) 95 08/08/17 08:00 97 08/08/17 06:00 72 08/08/17 04:00 50 08/08/17 04:00 68 08/08/17 04:00 98.3 80 16 162/69 (100) 97 08/08/17 03:50 96 50 08/08/17 02:37 71 183/84 08/08/17 02:00 71 08/08/17 01:09 95 50 08/08/17 00:57 97 50 08/08/17 00:00 50 08/08/17 00:00 98.2 74 19 148/73 (98) 97 08/08/17 00:00 64 08/07/17 20:19 100 50 08/07/17 20:00 50 08/07/17 20:00 63 08/07/17 20:00 98.6 60 17 155/65 (95) 98 I/O 08/07/17 08/07/17 08/07/17 08/08/17 08/08/17 08/08/17 07:00 15:00 23:00 07:00 15:00 23:00 Intake Total 1000 ml 250 ml 0 ml 918.4 ml 1165 ml Output Total 435 ml 3500 ml 255 ml 300 ml 100 ml 3500 ml Balance 565 ml -3250 ml -255 ml 618.4 ml 1065 ml -3500 ml IV Total 1000 ml 250 ml 918.4 ml 1165 ml Tube Feeding 0 ml Output Urine Total 335 ml 205 ml 300 ml Gastric Drainage Total 100 ml 50 ml 100 ml Hemodialysis 3500 ml 3500 ml # Bowel Movements 1 3 Physical Exam GENERAL: Intubated and sedated SKIN: Warm and dry. HEAD: Atraumatic. Normocephalic. EYES: Pupils equal and round. No scleral icterus. No injection or drainage. ENT: No nasal bleeding or discharge. Mucous membranes pink and moist. NECK: Trachea midline. No JVD. CARDIOVASCULAR: Regular rate and rhythm. RESPIRATORY: No accessory muscle use. Clear to auscultation. Breath sounds equal bilaterally. GASTROINTESTINAL: Abdomen soft, non-tender, nondistended. Hepatic and splenic margins not palpable. MUSCULOSKELETAL: Extremities without clubbing, cyanosis, or edema. No obvious deformities. NEUROLOGICAL: Unable to determine. ICP monitor in place, pressures 4-13 Laboratory Laboratory Tests Test 08/07/17 23:05 08/08/17 05:00 Potassium Level 3.3 MEQ/L 3.2 MEQ/L White Blood Count 12.3 TH/MM3 Red Blood Count 2.66 MIL/MM3 Hemoglobin 7.7 GM/DL Hematocrit 22.9 % Mean Corpuscular Volume 86.0 FL Mean Corpuscular Hemoglobin 29.0 PG Mean Corpuscular Hemoglobin Concent 33.8 % Red Cell Distribution Width 23.9 % Platelet Count 79 TH/MM3 Mean Platelet Volume 10.2 FL Neutrophils (%) (Auto) 84.9 % Lymphocytes (%) (Auto) 4.7 % Monocytes (%) (Auto) 9.2 % Eosinophils (%) (Auto) 0.9 % Basophils (%) (Auto) 0.3 % Neutrophils # (Auto) 10.4 TH/MM3 Lymphocytes # (Auto) 0.6 TH/MM3 Monocytes # (Auto) 1.1 TH/MM3 Eosinophils # (Auto) 0.1 TH/MM3 Basophils # (Auto) 0.0 TH/MM3 CBC Comment AUTO DIFF Differential Comment AUTO DIFF CONFIRMED Tear Drop Cells 1+ Ovalocytes 1+ Blood Urea Nitrogen 45 MG/DL Creatinine 3.16 MG/DL Random Glucose 143 MG/DL Calcium Level 8.6 MG/DL Sodium Level 142 MEQ/L Chloride Level 103 MEQ/L Carbon Dioxide Level 23.3 MEQ/L Anion Gap 16 MEQ/L Estimat Glomerular Filtration Rate 19 ML/MIN Imaging Last 24 hours Impressions Chest X-Ray 08/08/17 0600 Signed Impressions: Service Date/Time: Tuesday, August 08, 2017 04:59 - CONCLUSION: Unchanged bibasilar infiltrates. Pepe Segura Jr., MD Assessment and Plan Problem List: (1) Major neurocognitive disorder as late effect of traumatic brain injury without behavioral disturbance ICD Codes: S06.9X9S - Unspecified intracranial injury with loss of consciousness of unspecified duration, sequela; F02.80 - Dementia in other diseases classified elsewhere without behavioral disturbance Status: Acute (2) Intracranial bleed ICD Codes: I62.9 - Nontraumatic intracranial hemorrhage, unspecified Status: Acute (3) Edema due to congestive heart failure ICD Codes: I50.9 - Heart failure, unspecified Status: Chronic (4) Hypertensive emergency ICD Codes: I16.1 - Hypertensive emergency Status: Acute (5) CKD (chronic kidney disease) stage 3, GFR 30-59 ml/min ICD Codes: N18.3 - Chronic kidney disease, stage 3 (moderate) Status: Chronic (6) Acute kidney insufficiency ICD Codes: N28.9 - Disorder of kidney and ureter, unspecified Status: Chronic Assessment and Plan 1) Mechanical fall leading in subdural/subarachnoid hemorrhage 2) Benign PVCs Normal function on echo Electrolytes normal range 3) ASA/Plavix stopped for ICH 4) Blood pressure elevated Currently on Cardene drip Hydralazine PRN Hytrin increased by Nephrology 5) Worsening renal function, started on HD 6) Afib with RVR Controlled now on Cardizem drip, will attempt to change to PO once he's stabilized both HR/BP Not an anti-coagulation candidate 7) ?NSVT Agree with Coreg Aman Lind DO Aug 08, 2017 17:44
[2017-08-08] MEDS: DILTIAZEM INJ 125 MG in SODIUM CHLORIDE 0.9% INJ 100 ML IV PRN (18:55)
[2017-08-09] VITALS (18 sets, daily range): BP systolic 117–165; BP diastolic 56–66; PULSE 82–117; RESP 16–31; TEMP 99.1–100.6; O2SAT 92–100
[2017-08-09] MEDS: CHLORHEXIDINE GLUCONATE 2 % 1 PACK (2 CLOTHS) TOP SCH (01:20)
[2017-08-09] MEDS: CHLOROTHIAZIDE 500 MG G-TUBE SCH ×2 (03:26→14:36)
[2017-08-09] MEDS: DILTIAZEM INJ 125 MG in SODIUM CHLORIDE 0.9% INJ 100 ML IV PRN ×2 (03:27→08:03)
[2017-08-09] MEDS: niCARdipine INJ 50 MG in SODIUM CHLORID 0.9% 500 ML INJ 480 ML IV PRN ×3 (04:03→18:14)
[2017-08-09] MEDS: METOPROLOL TARTRATE 5 MG/5 ML VIAL IV PUSH SCH ×2 (04:18→09:24)
[2017-08-09] MEDS: RESP: ALBUTEROL 2.5 MG/IPRATROPIUM 0.5 MG NEB (SCH) NEB ×4 (04:53→19:33)
[2017-08-09] MEDS: FUROSEMIDE 100 MG/10 ML VIAL IV PUSH SCH ×3 (04:55→22:15)
[2017-08-09] MEDS: hydrALAZINE HCL 100 MG TAB PO SCH ×3 (04:55→22:16)
[2017-08-09] MEDS: METOCLOPRAMIDE HCL 10 MG/2 ML VIAL IV PUSH SCH ×3 (04:56→22:16)
[2017-08-09 05:47] LABS: AUTOMATED NEUTROPHIL # 16.8 TH/MM3 (1.8-7.7); BASOPHIL % 0.2 % (0.0-2.0); EOSINOPHIL # 0.1 TH/MM3 (0-0.4); EOSINOPHIL % 0.5 % (0.0-4.0); HEMATOCRIT 24.7 % (39.0-51.0); HEMOGLOBIN 8.3 GM/DL (13.0-17.0); LYMPH % 2.7 % (9.0-44.0); LYMPHOCYTE # 0.5 TH/MM3 (1.0-4.8); MEAN CELL VOLUME 85.6 FL (80.0-100.0); MEAN CORPUSCULAR HEMOGLOBIN 28.9 PG (27.0-34.0); MEAN CORPUSCULAR HGB CONC 33.8 % (32.0-36.0); MEAN PLATELET VOLUME 10.1 FL (7.0-11.0); MONO % 7.7 % (0.0-8.0); MONOCYTE # 1.4 TH/MM3 (0-0.9); NEUT % 88.9 % (16.0-70.0); PLATELET COUNT 112 TH/MM3 (150-450); RED BLOOD COUNT 2.88 MIL/MM3 (4.50-5.90); RED CELL DISTRIBUTION WIDTH 23.8 % (11.6-17.2); WHITE BLOOD COUNT 18.9 TH/MM3 (4.0-11.0)
[2017-08-09] MEDS: INSULIN ASPART SUPPLEMENTAL SCALE SQ SCH ×3 (06:00→18:00)
[2017-08-09 06:15] LABS: BICARBONATE 19.8 MEQ/L (21.0-32.0); CALCIUM 8.6 MG/DL (8.5-10.1)
[2017-08-09] MEDS: FAMOTIDINE 20 MG TAB PO SCH ×2 (07:47→22:40)
[2017-08-09] MEDS: LACTULOSE SYRUP 20 GM/30 ML CUP PO SCH ×5 (07:47→22:15)
[2017-08-09] MEDS: POLYETHYLENE GLYCOL 17 GM PKG NG SCH ×2 (07:47→21:00)
[2017-08-09] MEDS: DOCUSATE SODIUM 50 MG/SENNA 8.6 MG TAB PO SCH ×2 (07:47→22:16)
[2017-08-09] MEDS: ALLOPURINOL 100 MG TAB PO SCH (07:47)
[2017-08-09] MEDS: MAGNESIUM HYDROXIDE SUSP 30 ML CUP PO SCH ×2 (07:47→21:00)
[2017-08-09] MEDS: CARVEDILOL 12.5 MG TAB PO SCH ×2 (07:47→22:16)
[2017-08-09] MEDS: PRAVASTATIN SOD 40 MG TAB PO SCH (07:47)
[2017-08-09] MEDS: SODIUM CHLORIDE 0.9% FLUSH 10 ML FLUSH IV FLUSH PRN (07:48)
[2017-08-09] MEDS: CHLORHEXIDINE 0.12% (ORAL KIT) 15 ML CUP MT SCH ×2 (07:48→22:40)
[2017-08-09] MEDS: TERAZOSIN HCL 1 MG CAP NG SCH ×2 (08:02→22:15)
--- NOTE | 2017-08-09 08:31 | HHI.PR ---
Neuropsych Emotional Emotional: UnabletoAssess: Emotional, Anxious/Fearful, Depressed/Sad, Hostile/ Resentful, Irritable/Angry/Frustrate, Labile, Constricted/Blunted Behavior Behavior: Intact: Impulsive/Agitated, Unable to Asses: Behavior, Coping/ Acceptance, Cooperative w/ Treatment, Motivation, Frustration Tolerance/[place], Suicidal/Homicidal Risk Psychosocial Psychosocial: Intact: Psychosocial, Family/Other Adjustment, Realistic Expectation, Unable to Asses: Self-Esteem/Confidence Progress Notes/Response to Tx Contents of Sessions: Adjustment, Level of Consciousness Time with Patient: 15 minutes Premorbid psychological status Premorbid Cognitive, Emotional and Behavioral Status: Tenuous. The patient has high school years of education and is retired. The patient has no prior psychiatric difficulties, as described above. Substance abuse history is unremarkable. Behavioral Reactions of Patient and Family/Support System: Stable. The patient s family is experiencing ongoing issues of adjustment given the nature of the injury, and this aspect of recovery will require ongoing monitoring. Emotional/Behavioral Status of Patient and Family/Support System: Stable. Pertinent issues, if appropriate to this patients clinical care, are described in detail above. Maximizing acute care outcome It is recommended that the patient be monitored for emergent behavioral impulsivity as the medical condition evolves. This patients neuropathological challenges may limit his rehabilitation potential going forward, and these challenges will require specialized therapeutic skills to maximize outcome. Additionally, the patients family is experiencing ongoing issues of adjustment given the traumatic nature of the injury, and they may benefit from ongoing psychological assistance. At this point in the recovery process, the patient does not have cognitive capacity as the patient is unable to understand a situation and its likely consequences, nor is he able to manipulate information rationally. Cognitive capacity will be assessed throughout the recovery process. Anticipated Problems Ongoing areas of concern will include behavioral impulsivity, lack of insight and judgment, which is expected to improve with time and treatment. Presently , the patient is intubated and sedated. Treatment Plan This clinician will continue to follow with you throughout the course of this patients critical care treatment, and I will be available to meet with the patients family/support system to facilitate their understanding and the ongoing care of their family member. The goals of neuropsychological intervention shall be both educational and supportive to the family/support system as is deemed clinically appropriate. [facility] [place] Level: I:No response-total assistance Impression 82 y/o male s/p TBI 2T fall on 07/30/2017. Diagnosis: (1) Major neurocognitive disorder as late effect of traumatic brain injury without behavioral disturbance Status: Acute Progress Note Narrative PTD 10. There is no neurological change since yesterday and no neurobehavioral improvement. His GCS = 4, and he has developed ileus. This patient has no chance for a meaningful neurobehavioral recovery. He remains at [facility]. I will follow. Micah Sotelo PhD Aug 09, 2017 8:31 am
[2017-08-09] MEDS: hydrALAZINE HCL 20 MG/ML VIAL IV PUSH PRN (08:54)
[2017-08-09] MEDS: CEFEPIME INJ 1,000 MG in SODIUM CHLORIDE 0.9% INJ 100 ML IV SCH (09:24)
[2017-08-09] MEDS ORDERED: POTASSIUM CHLORIDE 20 MEQ CONTROLLED RELEASE TAB PO ONE (09:30)
[2017-08-09] MEDS ORDERED: POTASSIUM CHLOR 40 MEQ PREMIX 100 ML IV ONE (09:30)
--- NOTE | 2017-08-09 10:27 | HHI.CCPN ---
Subjective Remarks/Hospital Course 82 y/o man fell from height and sustained closed head trauma including left subdural hematoma and bilateral temporal parenchymal bleeds in areas of contusion. Admission CXR is impressive for pulmonary venous congestion. Home meds are not known at this time. 07/31: Enlarging left subdural hemorrhage and enlarging parenchymal contusions/ bleeds undoubtedly exacerbated by Plavix and aspirin use. CXR demonstrates bilateral effusions but improved pulmonary venous congestion after diuretic yesterday. Unfortunately a worsening azotemia has developed indicating he may not tolerate diuresis well. Follow renal function closely. I would have predicted chronic systolic heart failure after observing his effusions and ankles but his cardiac ECHO reveals reasonable biventricular function, probably EF > 50%. This may all be primary renal disease considering his reduced GFR and chronic anemia. 08/01: Remains sedated, orally intubated on mechanical ventilation 08/05: Remains sedated, orally intubated on mechanical ventilation. Renal function continued to decline of the last few days. Family wishes to proceed with hemodialysis after discussion with trauma team and nephrology. Subjective 08/06: Afebrile. Bradycardic. No acute cardiovascular incidents overnight. Continues on nicardipine drip at 7.5 mg an hour. Hemodialysis yesterday -3 L 08/07: Hypoxemic increasing oxygen requirement. Currently on 60% FiO2 10 of PEEP. Also developed atrial fibrillation with RVR, currently on Cardizem infusion at 15 mg/h with heart rate in 130s, Cardene infusion at 15 mg/h to control blood pressure. Additional 50 mg IV push of Cardizem ordered. Chest x- ray with bilateral basilar infiltrates left more than right. Increased yellow ET tube secretions. Start cefepime 1 gm IV q12 and vancomycin 1 gm IV x1 08/08: Remains intubated heavily sedated for ventilator synchrony. Antibiotics started yesterday for dense basilar consolidation bilaterally, WBC count slightly improved today. Intermittent episodes of nonsustained V. tach. Start scheduled Coreg 12.5 twice daily. Check magnesium level replace potassium. Hemodialysis yesterday with 3.5 L removed. Urine output approximately 500 mL in 24 hours 08/09: Remains critical. Maximized on Cardene infusion for blood pressure control. Heart rate is controlled with Cardizem drip start Cardizem 90 mg p.o. every 6 hours and wean to DC Cardizem infusion. Fever 100.6 with leukocytosis now 18.9. Repeat panculture. Off sedation for 24 hours now, has spontaneous eye opening and moves extremities spontaneously Objective Vital Signs Date Time Temp Pulse Resp B/P (MAP) Pulse Ox O2 Delivery O2 Flow Rate FiO2 08/09/17 08:58 94 40 08/09/17 08:03 86 165/60 08/09/17 08:00 100.6 26 Intake and Output 08/09/17 08/09/17 08/10/17 08:00 16:00 00:00 Intake Total 2354 ml Output Total 280 ml Balance 2074 ml Result Diagram: 08/09/17 0500 08/09/17 0500 Imaging Last Impressions Chest X-Ray 08/06/17 0600 Signed Impressions: Service Date/Time: Sunday, August 06, 2017 02:56 - CONCLUSION: 1. Slightly improved bibasilar consolidation and small effusions. 2. No change mild cardiomegaly. Ra Ballard MD Head CT 08/04/17 0000 Signed Impressions: Service Date/Time: July 04:37 - CONCLUSION: 1. Stable intracranial findings including bilateral subdural hematomas, intraventricular blood products, and bilateral temporal lobe hemorrhagic contusions. There is no midline shift or herniation. Ventricles are stable in size. 2. There is new fluid in the mastoid air cells and small air fluid levels bilaterally in the maxillary antra. These changes may be related to intubation. Ra Pulliam MD Lower Extremity Ultrasound 08/02/17 0000 Signed Impressions: Service Date/Time: Wednesday, August 02, 2017 10:40 - CONCLUSION: No evidence of DVT. Danyel Bear MD Renal Ultrasound 08/01/17 0000 Signed Impressions: Service Date/Time: Tuesday, August 01, 2017 14:46 - CONCLUSION: There is no hydronephrosis or stone. Bilateral pleural effusions.. Angel Brown MD FACR Shoulder X-Ray 07/31/17 0000 Signed Impressions: Service Date/Time: Monday, July 31, 2017 14:25 - CONCLUSION: No obvious fracture or dislocation. Degenerative changes. Prasanna Milan MD Cervical Spine CT 07/30/17 1202 Signed Impressions: Service Date/Time: Sunday, July 30, 2017 12:17 - CONCLUSION: 1. Negative for fracture. 2. Degenerative changes consisting of uncinate ridging with neural foramen encroachment without radiographically significant spinal stenosis. 3. Bilateral moderate sized pleural effusions seen on the lower slices through the upper lungs lungs. Angel Brown MD FACR Objective Remarks GENERAL: 82-year-old male currently orotracheally intubated, critically ill hypertensive SKIN: Warm/dry. HEAD: Atraumatic. Normocephalic. EYES: Pupils equal right pupil 2 mm left pupil 2 mm reactive to light. Subconjunctival hemorrhage on the right side. ENT: No nasal bleeding or discharge. Orotracheally intubated. NECK: Trachea midline. No JVD. Right IJ hemodialysis catheter is clean dry and intact. CARDIOVASCULAR: Atrial fibrillation on monitor. S1, S2 no S4. Distant. RESPIRATORY: Breath sounds equal bilaterally, with coarse rhonchi diminished at the bases. GASTROINTESTINAL: Abdomen protuberant. Hypoactive bowel sounds are appreciated. : Dockery catheter in place with bloody. Positive scrotal edema MUSCULOSKELETAL: No obvious deformities. Possible lipodermatosclerosis bilateral lower extremities NEUROLOGICAL: Off sedation for 24 hours, spontaneous eye opening moving extremities spontaneously cannot follow commands. Side: Right Location: Internal, Jugular (Vas cath) A/P Assessment and Plan Neuro/Psych: TBI Bilateral subdural hematomas, intraventricular blood products, and bilateral temporal lobe hemorrhagic contusions Acute encephalopathy Currently off all continuos sedation. Spontaneously opening eyes and moving extremities, there is slight improvement in neuro exam CT brain admission revealed bilateral subdural hematomas, intraventricular hemorrhage in bilateral temporal contusions. Followed by neurosurgery/Dr. Horne. Status post removal of ICP 08/05 Levetiracetam 500 mg by tube twice daily seizure prophylaxis Acetaminophen 650 mg p.o. every 6 hours as needed fever Currently holding primidone 50 mg twice daily for essential tremor CV: Atrial fibrillation with RVR Nonsustained V. tach Uncontrolled hypertension Chronic diastolic heart failure Mild pulmonary hypertension PVD -stent LAD status post femoropopliteal Currently on nicardipine drip at 15 mg an hour to maintain systolic blood pressure less than 150 Cardizem drip -will wean to DC after starting Cardizem 90 mg every 6 hours Continue hydralazine 100 mg every 8 hours, amlodipine 10 mg daily, metoprolol 5 mg IV every 6 hours and terazosin 10 mg daily Scheduled p.o. Coreg 12.5 twice daily. Currently on clonidine patch. Will increase to 0.6 mg patch, add clonidine po 0.3 mg q8. Continue hydralazine 100 mg every 8 Continue pravastatin 40 mg daily for dyslipidemia. On simvastatin 20 mg daily home. Holding aspirin 325 daily and clopidogrel 75 daily in light of brain hemorrhage as above, cannot fully anticoagulate for a fib 2D echo revealed LVEF low normal with an estimated ejection fraction in the range of 50- 55%. Mild pulmonary. hypertension 40 mmHg Currently on furosemide 80 mg IV every 6 8 hours and Diuril 500 mg IV every 12 hours. Hold while on hemodialysis-defer to nephrology (Home medications include terazosin 10 mg daily, Toprol 50 mg twice daily, losartan 25 mg p.o. daily, Aldactone 25 mg daily, Lasix 80 mg twice daily) Resp: Acute hypoxemic respiratory failure Healthcare associated pneumonia [facility] /06/06/39. Start CPAP trials Ventilator bundle. Albuterol/ipratropium aerosols every 6 hours with albuterol aerosols every 2 hours as needed for dyspnea Continue broad-spectrum antibiotics with cefepime 1 g every 12, vancomycin 1 dose given 08/07 CT of the chest to evaluate effusion/infiltrate-shows bibasilar dense consolidation GI: Hypoalbuminemia Constipation Gastroesophageal reflux disease Currently on Glucerna 1.5 and 35 cc an hour/recommendations per pharmacy Currently in famotidine for GI prophylaxis. On omeprazole 20 mg daily at home. Continue bowel regimen KUB showed normal bowel gas pattern : BPH Holding finasteride 5 mg daily and terazosin 10 mg daily. Resume clinically indicated The Dockery catheter has been placed for accurate I's and O's in a critically ill patient with significant scrotal edema Endo: Gout Diabetes mellitus Sliding scale insulin with aspart insulin to maintain euglycemia Home medications include glipizide 5 mg twice daily on hold Allopurinol 100 mg daily Renal: Acute kidney failure HD per Dr. Chavez. Potassium replacement orders given Heme: Normocytic anemia Thrombocytopenia Monitor CBC daily. Follow trends On iron sulfate 160 mg daily at home ID: Severe sepsis Healthcare associated pneumonia UTI with staph aureus -Now with fever and worsening leukocytosis. Repeat sputum blood and urine cultures -Started on cefepime and single dose of vancomycin 08/07.Give 1 gm of vanc and pharmacy to dose FEN: Hypernatremia Replace electrolytes as clinically indicated Access: -Right IJ hemodialysis catheter placed 08/05, left subclavian central line placement, 08/07/2017 Prophylaxis -GI -famotidine -DVT -SCD/heparin subcu CCT 35 min Remains critically ill with TBI, hypoxemic respiratory failure, healthcare associated pneumonia, uncontrolled hypertension. Now with worsening sepsis fever. Repeat cultures. Add vancomycin. Neuro exam though is slightly improved but overall prognosis remains guarded Doug Knapp MD Aug 09, 2017 10:27
[2017-08-09] MEDS ORDERED: Vancomycin Consult Pharmacy 1 EA OTHER SCH (10:30)
--- NOTE | 2017-08-09 10:37 | PD.WCN.NOT ---
Wound Consult Additional Information: Late entry from 08/08/2017 at 1500: Attempted to see patient, patient was on Dialysis machine at this time and nurse was unavailable. Will attempt to see patient tomorrow. Dana Calles [facility] Aug 09, 2017 10:37
[2017-08-09] MEDS ORDERED: VANCOMYCIN INJ 1,000 MG in SODIUM CHLOR 0.9% 250 ML INJ 250 ML IV ONE (11:00)
[2017-08-09] MEDS: DILTIAZEM HCL 90 MG TAB PO SCH ×2 (11:13→18:00)
--- NOTE | 2017-08-09 11:23 | HHI.NPPN ---
Subjective History of Present Illness This patient is an 82-year-old male who unfortunately cannot provide any history secondary to head injury, intubated status on a ventilator. History obtained from records and from his daughter. Limited history available. Family patient has a history suggesting peripheral vascular disease, congestive heart failure, chronic lower extremity edema with dyspnea, chronic renal sufficiency?. According to the patient's daughter he was hospitalized back in [address] [facility]. Developed a ruptured appendix post colonoscopy subsequently developing acute renal failure and requiring laparotomy. According to the patient's daughter he was on dialysis temporarily. Not following up with a carton making machine operator routinely in recent times. They cannot recall name of his primary care physician currently also. Patient apparently fell short distance from a ladder and hit his head and subsequently has been diagnosed as having a subdural as well as subarachnoid hemorrhage. Creatinine was elevated at the time of presentation at 1.5 and chest x-ray showed evidence of congestive heart failure and the patient had a hemoglobin that was only 7.4. Echocardiogram performed July 31, 2017 revealed an ejection fraction of 50-55%. Patient's albumin on presentation his low with a low corrected calcium 7.8. Interval History Pt remains intubated Off sedation x24h Minimal pain response HD yesterday with 3500 UF, but receiving significant fluids for medications. (Olamide Garcia) Review of Systems General General Remarks Unable to obtain (Olamide Garcia) Objective Data Data 08/09/17 08/10/17 19:00 07:00 Intake Total 725 ml Balance 725 ml IV Total 725 ml Vital Signs Date Time Temp Pulse Resp B/P (MAP) Pulse Ox O2 Delivery O2 Flow Rate FiO2 08/09/17 10:00 93 08/09/17 08:58 94 40 08/09/17 08:03 86 165/60 08/09/17 08:02 101 165/60 08/09/17 08:00 50 08/09/17 08:00 112 08/09/17 08:00 100.6 99 26 165/60 (95) 95 08/09/17 06:00 117 08/09/17 04:53 94 40 08/09/17 04:03 114 155/66 08/09/17 04:00 99.8 106 16 155/66 (95) 95 08/09/17 04:00 113 08/09/17 04:00 50 08/09/17 03:27 115 141/63 08/09/17 02:00 105 08/09/17 00:49 94 40 08/09/17 00:00 97 08/09/17 00:00 50 08/08/17 23:09 97 146/65 08/08/17 22:00 109 08/08/17 20:00 99.8 112 19 183/75 (111) 96 08/08/17 20:00 113 08/08/17 20:00 50 08/08/17 19:53 98 40 08/08/17 19:49 108 172/74 08/08/17 18:55 106 107/51 08/08/17 18:00 110 08/08/17 16:47 96 40 08/08/17 16:00 120 08/08/17 16:00 99.0 112 22 128/62 (84) 95 08/08/17 16:00 50 08/08/17 14:00 108 08/08/17 13:01 103 143/60 08/08/17 12:00 50 08/08/17 12:00 102 08/08/17 12:00 99.1 109 23 147/67 (93) 96 (Olamide Garcia) -: 08/09/17 0500 08/09/17 0500 Microbiology 08/09/17 Gram Stain, Received Pending 08/09/17 Sputum Culture, Received Pending 08/09/17 Urine Culture, Received Pending Imaging Last Impressions Chest X-Ray 08/08/17 06 Signed Impressions: Service Date/Time: Tuesday, August 08, 2017 04:59 - CONCLUSION: Unchanged bibasilar infiltrates. Pepe Segura Jr., MD Abdomen X-Ray 08/07/17 0600 Signed Impressions: Service Date/Time: Monday, August 07, 2017 05:16 - CONCLUSION: Benign- appearing abdomen. Nasogastric tube tip is in the upper stomach. Ra Ballard MD Chest CT 08/07/17 0000 Signed Impressions: Service Date/Time: Monday, August 07, 2017 08:36 - CONCLUSION: 1. Bilateral lower lobe consolidating airspace disease. 2. Small to moderate bilateral pleural effusions. 3. Cardiomegaly. Eliud Gar MD Head CT 08/04/17 0000 Signed Impressions: Service Date/Time: July 04:37 - CONCLUSION: 1. Stable intracranial findings including bilateral subdural hematomas, intraventricular blood products, and bilateral temporal lobe hemorrhagic contusions. There is no midline shift or herniation. Ventricles are stable in size. 2. There is new fluid in the mastoid air cells and small air fluid levels bilaterally in the maxillary antra. These changes may be related to intubation. Ra Pulliam MD Lower Extremity Ultrasound 08/02/17 0000 Signed Impressions: Service Date/Time: Wednesday, August 02, 2017 10:40 - CONCLUSION: No evidence of DVT. Danyel Bear MD Renal Ultrasound 08/01/17 0000 Signed Impressions: Service Date/Time: Tuesday, August 01, 2017 14:46 - CONCLUSION: There is no hydronephrosis or stone. Bilateral pleural effusions.. Angel Brown MD FACR Shoulder X-Ray 07/31/17 0000 Signed Impressions: Service Date/Time: Monday, July 31, 2017 14:25 - CONCLUSION: No obvious fracture or dislocation. Degenerative changes. Prasanna Milan MD Cervical Spine CT 07/30/17 1202 Signed Impressions: Service Date/Time: Sunday, July 30, 2017 12:17 - CONCLUSION: 1. Negative for fracture. 2. Degenerative changes consisting of uncinate ridging with neural foramen encroachment without radiographically significant spinal stenosis. 3. Bilateral moderate sized pleural effusions seen on the lower slices through the upper lungs lungs. Angel Brown MD FACR Tubes & Lines: Vas-Cath Medication Review Current Medications Medications (Trade) Dose Ordered Sig/Juliet Route Start Time Stop Time Status Last Admin (NS Flush) 2 ml UNSCH PRN IV FLUSH 07/30/17 12:45 08/09/17 07:48 (Zofran Inj) 4 mg Q6H PRN IV PUSH 07/30/17 12:45 08/06/17 18:19 Miscellaneous Information 1 Q361D XX 07/30/17 12:45 (Chlorhexidine 2% Cloth) Taper DAILY@04 TOP 07/31/17 04:00 07/27/18 03:59 08/05/17 03:26 (Chlorhexidine 2% Cloth) 3 pack UNSCH PRN TOP 07/30/17 12:45 (Peridex 0.12% Liq) 15 ml BID@08,20 MT 07/30/17 20:00 08/09/17 07:48 (Pepcid) 10 mg BID PO 07/30/17 21:00 08/09/17 07:47 (Pravachol) 40 mg DAILY PO 07/31/17 09:00 08/09/17 07:47 (D50w (Vial) Inj) 50 ml UNSCH PRN IV PUSH 07/31/17 07:45 (Glucagon Inj) 1 mg UNSCH PRN OTHER 07/31/17 07:45 (Jackelyn-Colace) 1 tab BID PO 08/01/17 21:00 08/09/17 07:47 (Dulcolax Supp) 10 mg DAILY PRN RECTAL 08/01/17 16:15 (NovoLOG SUPPLEMENTAL SCALE) 1 Q6HR SQ 08/01/17 18:00 08/07/17 05:36 (Apresoline Inj) 10 mg Q4HR PRN IV PUSH 08/04/17 12:30 08/09/17 08:54 (Lasix Inj) 80 mg Q8HR IV PUSH 08/04/17 22:00 08/09/17 04:55 (Milk Of Magnesia Liq) 30 ml BID PO 08/05/17 09:00 08/06/17 07:56 (Reglan Inj) 5 mg Q8HR IV PUSH 08/05/17 14:00 08/09/17 04:56 (Heparin Inj) 5,000 units Q8HR SQ 08/05/17 14:00 Future Hold 08/06/17 06:13 Sodium Chloride 1,000 ml @ 0 mls/hr Q0M PRN OTHER 08/05/17 13:51 Sodium Chloride 1,000 ml @ 200 mls/hr Q5H PRN IV 08/05/17 13:51 08/06/17 13:21 Sodium Chloride 1,000 ml @ 0 mls/hr Q0M PRN OTHER 08/05/17 13:51 Albumin Human 100 ml @ 60 mls/hr UNSCH PRN IV 08/05/17 14:00 08/07/17 09:41 (NS Flush) 5 ml UNSCH PRN IV FLUSH 08/05/17 14:00 (Heparin Inj) UNSCH PRN .XX 08/05/17 14:00 08/07/17 09:19 (Gentamicin Inj) 20 mg UNSCH PRN OTHER 08/05/17 14:00 08/07/17 09:20 (Zofran Inj) 4 mg UNSCH PRN IV PUSH 08/05/17 14:00 (Tylenol) 650 mg UNSCH PRN PO 08/05/17 14:00 (Benadryl) 25 mg UNSCH PRN PO 08/05/17 14:00 (Nitrostat Sl) 0.4 mg UNSCH PRN SL 08/05/17 14:00 (Catapres) 0.1 mg UNSCH PRN PO 08/05/17 14:00 08/08/17 01:57 (Gelfoam 12 Mm/7 Mm Top) 1 foam UNSCH PRN TOP 08/05/17 14:00 Nicardipine HCl 50 mg/Sodium Chloride 500 ml @ 50 mls/hr TITRATE PRN IV 08/06/17 00:15 08/09/17 08:02 (Albuterol Neb) 2.5 mg Q2HR NEB PRN NEB 08/06/17 09:45 (Norvasc) 10 mg DAILY PO 08/07/17 09:00 08/09/17 07:47 (Apresoline) 100 mg Q8HR PO 08/06/17 14:00 08/09/17 04:55 (Lactulose Liq) 30 ml QID PO 08/06/17 13:00 08/08/17 20:52 (Miralax) 17 gm BID NG 08/06/17 21:00 08/09/17 07:47 (Zyloprim) 100 mg DAILY PO 08/07/17 09:00 08/09/17 07:47 (Hytrin) 7 mg BID NG 08/06/17 13:30 08/09/17 08:02 (Lopressor Inj) 2.5 mg Q6H PRN IV PUSH 08/07/17 07:45 08/08/17 08:35 Cefepime HCl 1000 mg/Sodium Chloride 100 ml @ 200 mls/hr Q12H IV 08/07/17 10:00 08/09/17 09:24 (Coreg) 12.5 mg Q12HR PO 08/08/17 09:00 08/09/17 07:47 (Diuril) 500 mg Q12H G-TUBE 08/09/17 03:15 08/09/17 03:26 Potassium Chloride 100 ml @ 25 mls/hr ONCE ONCE IV 08/09/17 09:30 08/09/17 13:29 08/09/17 09:24 (Cardizem) 90 mg Q6HR PO 08/09/17 12:00 08/09/17 11:13 (Duoneb Neb) 1 ampule Q6HR NEB NEB 08/09/17 16:00 (Catapres) 0.3 mg Q8HR PO 08/09/17 14:00 Miscellaneous Information 2 Q7D T-DERMAL 08/12/17 11:00 (Catapres-Tts 0.3 Mg Patch.7d) 2 patch Q7D T-DERMAL 08/09/17 12:00 08/09/17 11:13 Vancomycin HCl 1000 mg/Sodium Chloride 250 ml @ 250 mls/hr ONCE ONCE IV 08/09/17 11:00 08/09/17 11:59 Pharmacy Profile Note 0 ml @ 0 mls/hr UNSCH OTHER 08/09/17 10:30 (Olamide Garcia) Physical Exam General Appearance: Comfortable, Obese (Olamide Garcia) Eyes Eye Exam: Sclera White (Olamide Garcia) Pulmonary Resp Exam: Breath Sounds Equal, No Distress, Decreased Bases (Olamide Garcia) Cardiology CV Exam: Regular, Normal Sinus Rhythm (Olamide Garcia) Gastrointestinal/Abdomen GI Exam: Non-Tender, Distended (Olamide Garcia) Extremeties Extremities Exam: Moderate Edema (significantly improved with dialysis.), Pitting Edema, Dependent Edema (diffuse edema involving all extremities, hips and dependent torso.) (Olamide Garcia) Neurologic Neuro Exam: Sedated (Olamide Garcia) Assessment/Plan Discussed Condition With: Son, Daughter, Relative Problem List: (1) Acute kidney insufficiency ICD Codes: N28.9 - Disorder of kidney and ureter, unspecified Status: Chronic Plan: Net removal yesterday despite HD was only 400mL. HD again today for further volume improvement as well as acid/base status. Receiving KCl as ordered by CC. If the patient require dialysis long-term with no improvement in neurological state requiring PEG and trach and the family wishes continue same he will likely require institutionalization in a long-term care facility which could provide dialytic services most likely out of town. Medications should be adjusted for the patient's estimated GFR if clinically indicated. Avoid agents with significant potential for nephrotoxicity possible including NSAIDs for analgesia, iodine contrast agents. Gadolinium is contraindicated if the GFR is below 30. (2) CKD (chronic kidney disease) stage 3, GFR 30-59 ml/min ICD Codes: N18.3 - Chronic kidney disease, stage 3 (moderate) Status: Chronic Plan: Baseline renal function unknown. Patient currently has a history of chronic lower extremity edema and dyspnea. Unfortunately previous records not available but I suspect that the patient has a component of chronic CHF. 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 Also previous history of acute renal failure may have resulted in significant deterioration in his baseline renal function but those records are not available to me currently. (3) Congestive heart failure ICD Codes: I50.9 - Heart failure, unspecified Status: Chronic Plan: Continue furosemide and Diuril as ordered. Monitor response. Most likely has some degree of diastolic dysfunction as EF was reported as being 50-55%. (4) Edema due to congestive heart failure ICD Codes: I50.9 - Heart failure, unspecified Status: Chronic (5) Major neurocognitive disorder as late effect of traumatic brain injury without behavioral disturbance ICD Codes: S06.9X9S - Unspecified intracranial injury with loss of consciousness of unspecified duration, sequela; F02.80 - Dementia in other diseases classified elsewhere without behavioral disturbance Status: Acute (6) HTN (hypertension) ICD Codes: I10 - Essential (primary) hypertension Plan: On multiple classes of hypertensive medications. Improving slightly. Maxed on Cardene Will reassess after ultrafiltration today May need ACEi tomorrow. (Olamide Garcia) Plan The exam, history, and the medical decision-making described in the above note were completed with the assistance of the PAKiet. I reviewed and agree with the findings presented. (Michell Chavez MD) Problem Qualifiers (1) Congestive heart failure: Qualified Codes: I50.9 - Heart failure, unspecified Olamide Garcia Aug 09, 2017 11:23 Michell Chavez MD Aug 10, 2017 18:17
[2017-08-09] MEDS ORDERED: cloNIDine HCL 0.3 MG/24 HR PATCH T-DERMAL SCH (12:00)
--- NOTE | 2017-08-09 13:04 | PD.WCN.NOT ---
Wound Consult Description: Received consult for pressure ulcer of coccyx area from [facility] Communicated with: JOSE Dorsey [facility] and Inna SHAFFER Recommendation: 1.Please cleanse buttock, sacral, coccyx and gluteal cleft with remedy incontinent wipes. Apply thick layer of Calazime barrier cream BID and PRN. 2.Turn patient every 2 hours and PRN for comfort and offloading of pressure from tomasa prominences 3. Obtain [place] airapy bed from environmental, if not available please order K4 mattress from [employer] Additional Information: Patient seen on [address] [place] [address] for pressure ulcer to coccyx area around 1230. [place] [facility] [place]Patient presents with generalized pitting edema that is weeping in the BUE.Patient is intubated and sedated. Patient was turned to R side with the assistance of C RN and speech writer. Patient has dignishield in place for fecal management. Dignishield is leaking due to kink in tubing. Straightened dignisheild tubing, C RN flushed dignisheild tubing. Stool was cleansed from patient's skin with Remedy incontinence barrier wipes. Non blanchable purple discoloration to sacrococcygeal area is assessed opening to dry partial thickness skin loss. Wound is non draining without foul odor and measures ~8cm x ~8cm. Patient also noted with edematous scrotum, with small scattered areas of partial thickness skin loss, that presents as moisture related.Cleansed wound with normal saline. Applied thick layer of barrier cream over opening DTI, scrotum, bilateral buttocks and gluteal cleft areas. All areas were left open to air.Patient was then positioned off bottom with pillow in place for support. Dana Calles [facility] Aug 09, 2017 13:04
[2017-08-09] MEDS: GENTAMICIN SULFATE 20 MG/2 ML VIAL OTHER PRN (14:06)
[2017-08-09] MEDS: HEPARIN SODIUM - IV 10,000 UNITS/10 ML VIAL PRN (14:07)
[2017-08-09] MEDS: ALBUMIN 25% INJ 100 ML IV PRN (14:07)
[2017-08-09] MEDS: cloNIDine HCL 0.3 MG TAB PO SCH ×2 (14:36→22:16)
--- NOTE | 2017-08-09 15:19 | HHI.HCPN ---
Reason for visit a. To assist with evaluation and management of symptoms including: pain, dyspnea, encephalopathy b. To assist medical decision maker(s) with: better understanding of current medical conditions; weighing benefits/burdens of medical treatment options; making medical treatment decisions. . Subjective/Interval History Follow-up for symptom management and clarification of medical treatment goals. Patient seen this morning in the [facility], room 1314. He remains critically ill, intubated on mechanical ventilation. Patient is maxed out on Cardene drip for blood pressure control. He is also on Cardizem for rate control, attempting to wean off Cardizem drip and transition to oral medication. T-max 100.6. WBC 18.9. Repeat kim cultures pending. Patient started on cefepime, considering also starting vancomycin. Follow-up chest x-ray on showed unchanged bibasilar infiltrates. Patient had HD yesterday 3.5 L removed. BUN: 30, creatinine 3.00, GFR 20 Sodium: 141, potassium 2.8, chloride 101, carbon dioxide 19.8, glucose 185, calcium 8.6 Patient has been off sedation for approximately 24 hours. He opens eyes and moves all extremities spontaneously; no purposeful movement. Does not arouse to verbal stimuli. Does not follow commands. Follow-up CT brain on 08/04/17 revealed stable intracranial findings including bilateral subdural hematomas, intraventricular blood products and bilateral temporal lobe hemorrhagic contusions. No midline shift or herniation. Ventricle size stable. EEG pending. Copies of written advanced directives, designation of healthcare surrogate form , have not yet been provided by the family. Per [place] statutes, in the absence of written advanced directives healthcare proxy decision making falls to the patient's . If she is unable to fulfill this role, then healthcare proxy decision making. The majority of the patient's 4 adult children. . . Advance Directives Advance Directive Specifics Documented care wishes: Patient reportedly has completed written advanced directives. Son, Darryn, will bring copies of documentation to the hospital tomorrow 08/04/2017 so that copies can be placed in the patient's chart and scanned into the EMR. . Objective Vital Signs Date Time Temp Pulse Resp B/P (MAP) Pulse Ox O2 Delivery O2 Flow Rate FiO2 08/09/17 12:43 92 40 08/09/17 12:00 99.8 83 31 127/60 (82) 94 3/13/18 12:00 40 08/09/17 12:00 83 08/09/17 10:00 93 08/09/17 08:58 94 40 08/09/17 08:03 86 165/60 08/09/17 08:02 101 165/60 08/09/17 08:00 50 08/09/17 08:00 112 08/09/17 08:00 100.6 99 26 165/60 (95) 95 08/09/17 06:00 117 08/09/17 04:53 94 40 08/09/17 04:03 114 155/66 08/09/17 04:00 99.8 106 16 155/66 (95) 95 08/09/17 04:00 113 08/09/17 04:00 50 08/09/17 03:27 115 141/63 08/09/17 02:00 105 08/09/17 00:49 94 40 08/09/17 00:00 97 08/09/17 00:00 50 08/08/17 23:09 97 146/65 08/08/17 22:00 109 08/08/17 20:00 99.8 112 19 183/75 (111) 96 08/08/17 20:00 113 08/08/17 20:00 50 08/08/17 19:53 98 40 08/08/17 19:49 108 172/74 08/08/17 18:55 106 107/51 08/08/17 18:00 110 08/08/17 16:47 96 40 08/08/17 16:00 120 08/08/17 16:00 99.0 112 22 128/62 (84) 95 08/08/17 16:00 50 08/08/17 14:00 108 Intake & Output 08/09/17 08/09/17 07:00 19:00 Intake Total 2354 ml 725 ml Output Total 280 ml Balance 2074 ml 725 ml IV Total 2354 ml 725 ml Output Urine Total 80 ml Stool Total 100 ml Gastric Drainage Total 100 ml . Physical Exam CONSTITUTIONAL/GENERAL: This is an adequately nourished elderly, male patient currently intubated on mechanical ventilation TUBES/LINES/DRAINS: PIV 3, Dockery catheter, ETT, OGT SKIN: No jaundice, rashes, or lesions. Ecchymoses on upper extremities. Skin temperature appropriate. Not diaphoretic. HEAD: Atraumatic. Normocephalic. EYES: Pupils equal and round and sluggish. No scleral icterus. No injection or drainage. Fundi not examined. ENT: Unable to assess hearing given current clinical condition. Nose without bleeding or purulent drainage. NECK: Trachea midline. CARDIOVASCULAR: Irregularly irregular without murmurs, gallops, or rubs. No JVD. Peripheral pulses symmetric. Generalized edema RESPIRATORY/CHEST: Intubated on mechanical ventilation. Increased upper airway secretions GASTROINTESTINAL: Abdomen soft, non-tender, nondistended. Bowel sounds present. GENITOURINARY: Without palpable bladder distension. Dockery catheter in place with minimal urine output MUSCULOSKELETAL: Extremities without clubbing or cyanosis. LYMPHATICS: No palpable cervical or supraclavicular adenopathy. NEUROLOGICAL: Minimally responsive during sedation vacation. Does not arouse to verbal stimuli. Withdraws lower extremities to noxious stimuli but upper extremities remain flaccid. PSYCHIATRIC: Unable to assess given clinical condition. . Diagnostic Tests Laboratory Laboratory Tests Test 08/07/17 04:20 08/07/17 06:35 08/07/17 15:38 08/07/17 23:05 White Blood Count 14.1 TH/MM3 (4.0-11.0) Red Blood Count 3.32 MIL/MM3 (4.50-5.90) Hemoglobin 9.6 GM/DL (13.0-17.0) Hematocrit 28.8 % (39.0-51.0) Mean Corpuscular Volume 86.8 FL (80.0-100.0) Mean Corpuscular Hemoglobin 28.8 PG (27.0-34.0) Mean Corpuscular Hemoglobin Concent 33.2 % (32.0-36.0) Red Cell Distribution Width 24.0 % (11.6-17.2) Platelet Count 96 TH/MM3 (150-450) Mean Platelet Volume 10.0 FL (7.0-11.0) Neutrophils (%) (Auto) 85.1 % (16.0-70.0) Lymphocytes (%) (Auto) 4.2 % (9.0-44.0) Monocytes (%) (Auto) 10.1 % (0.0-8.0) Eosinophils (%) (Auto) 0.3 % (0.0-4.0) Basophils (%) (Auto) 0.3 % (0.0-2.0) Neutrophils # (Auto) 12.0 TH/MM3 (1.8-7.7) Lymphocytes # (Auto) 0.6 TH/MM3 (1.0-4.8) Monocytes # (Auto) 1.4 TH/MM3 (0-0.9) Eosinophils # (Auto) 0.0 TH/MM3 (0-0.4) Basophils # (Auto) 0.0 TH/MM3 (0-0.2) CBC Comment AUTO DIFF Differential Comment AUTO DIFF CONFIRMED Tear Drop Cells 1+ (NORMAL) Ovalocytes 1+ (NORMAL) Blood Urea Nitrogen 53 MG/DL (7-18) Creatinine 3.16 MG/DL (0.60-1.30) Random Glucose 161 MG/DL (74-106) Albumin 2.4 GM/DL (3.4-5.0) Calcium Level 8.3 MG/DL (8.5-10.1) Phosphorus Level 5.9 MG/DL (2.5-4.9) Sodium Level 144 MEQ/L (136-145) Potassium Level 3.4 MEQ/L (3.5-5.1) 3.3 MEQ/L (3.5-5.1) Chloride Level 107 MEQ/L (98-107) Carbon Dioxide Level 20.1 MEQ/L (21.0-32.0) Anion Gap 17 MEQ/L (5-15) Estimat Glomerular Filtration Rate 19 ML/MIN (>89) Magnesium Level 2.4 MG/DL (1.5-2.5) Blood Gas Puncture Site LT RADIAL Blood Gas Patient Temperature 98.6 Blood Gas HCO3 16 mmol/L (22-26) Blood Gas Base Excess -7.7 mmol/L (-2-2) Blood Gas Oxygen Saturation 91 % (90-100) Arterial Blood pH 7.41 (7.380-7.420) Arterial Blood Partial Pressure CO2 26 mmHg (38-42) Arterial Blood Partial Pressure O2 72 mmHg (61-120) Arterial Blood Oxygen Content 16.0 Vol % (12.0-20.0) Arterial Blood Carboxyhemoglobin 1.0 % (0-4) Arterial Blood Methemoglobin 0.9 % (0-2) Blood Gas Hemoglobin 12.4 G/DL (12.0-16.0) Oxygen Delivery Device VENTILATOR Blood Gas Ventilator Setting PRVC / AC / Blood Gas Inspired Oxygen 60 % Total Creatine Kinase 164 U/L (39-308) Test 08/08/17 05:00 08/09/17 05:00 White Blood Count 12.3 TH/MM3 (4.0-11.0) 18.9 TH/MM3 (4.0-11.0) Red Blood Count 2.66 MIL/MM3 (4.50-5.90) 2.88 MIL/MM3 (4.50-5.90) Hemoglobin 7.7 GM/DL (13.0-17.0) 8.3 GM/DL (13.0-17.0) Hematocrit 22.9 % (39.0-51.0) 24.7 % (39.0-51.0) Mean Corpuscular Volume 86.0 FL (80.0-100.0) 85.6 FL (80.0-100.0) Mean Corpuscular Hemoglobin 29.0 PG (27.0-34.0) 28.9 PG (27.0-34.0) Mean Corpuscular Hemoglobin Concent 33.8 % (32.0-36.0) 33.8 % (32.0-36.0) Red Cell Distribution Width 23.9 % (11.6-17.2) 23.8 % (11.6-17.2) Platelet Count 79 TH/MM3 (150-450) 112 TH/MM3 (150-450) Mean Platelet Volume 10.2 FL (7.0-11.0) 10.1 FL (7.0-11.0) Neutrophils (%) (Auto) 84.9 % (16.0-70.0) 88.9 % (16.0-70.0) Lymphocytes (%) (Auto) 4.7 % (9.0-44.0) 2.7 % (9.0-44.0) Monocytes (%) (Auto) 9.2 % (0.0-8.0) 7.7 % (0.0-8.0) Eosinophils (%) (Auto) 0.9 % (0.0-4.0) 0.5 % (0.0-4.0) Basophils (%) (Auto) 0.3 % (0.0-2.0) 0.2 % (0.0-2.0) Neutrophils # (Auto) 10.4 TH/MM3 (1.8-7.7) 16.8 TH/MM3 (1.8-7.7) Lymphocytes # (Auto) 0.6 TH/MM3 (1.0-4.8) 0.5 TH/MM3 (1.0-4.8) Monocytes # (Auto) 1.1 TH/MM3 (0-0.9) 1.4 TH/MM3 (0-0.9) Eosinophils # (Auto) 0.1 TH/MM3 (0-0.4) 0.1 TH/MM3 (0-0.4) Basophils # (Auto) 0.0 TH/MM3 (0-0.2) 0.0 TH/MM3 (0-0.2) CBC Comment AUTO DIFF DIFF FINAL Differential Comment AUTO DIFF CONFIRMED Tear Drop Cells 1+ (NORMAL) Ovalocytes 1+ (NORMAL) Blood Urea Nitrogen 45 MG/DL (7-18) 30 MG/DL (7-18) Creatinine 3.16 MG/DL (0.60-1.30) 3.00 MG/DL (0.60-1.30) Random Glucose 143 MG/DL (74-106) 185 MG/DL (74-106) Calcium Level 8.6 MG/DL (8.5-10.1) 8.6 MG/DL (8.5-10.1) Sodium Level 142 MEQ/L (136-145) 141 MEQ/L (136-145) Potassium Level 3.2 MEQ/L (3.5-5.1) 2.8 MEQ/L (3.5-5.1) Chloride Level 103 MEQ/L (98-107) 101 MEQ/L (98-107) Carbon Dioxide Level 23.3 MEQ/L (21.0-32.0) 19.8 MEQ/L (21.0-32.0) Anion Gap 16 MEQ/L (5-15) 20 MEQ/L (5-15) Estimat Glomerular Filtration Rate 19 ML/MIN (>89) 20 ML/MIN (>89) . Result Diagram: 08/09/17 0500 08/09/17 0500 Microbiology Microbiology Date/Time Source Procedure Growth Status 08/09/17 12:11 Blood Peripheral Aerobic Blood Culture Pending Received 08/09/17 12:11 Blood Peripheral Anaerobic Blood Culture Pending Received 08/09/17 12:06 Blood Peripheral Aerobic Blood Culture Pending Received 08/09/17 12:06 Blood Peripheral Anaerobic Blood Culture Pending Received 08/07/17 09:15 Blood Peripheral Aerobic Blood Culture - Preliminary NO GROWTH IN 2 DAYS Resulted 08/07/17 09:15 Blood Peripheral Anaerobic Blood Culture - Preliminary NO GROWTH IN 2 DAYS Resulted 08/07/17 09:08 Blood Peripheral Aerobic Blood Culture - Preliminary Staphylococcus Epidermidis Resulted 08/07/17 09:08 Blood Peripheral Anaerobic Blood Culture - Preliminary NO GROWTH IN 2 DAYS Resulted 08/09/17 10:16 Sputum Expectorated Sputum Gram Stain Pending Received 08/09/17 10:16 Sputum Expectorated Sputum Sputum Culture Pending Received 08/09/17 10:16 Urine Catheterized Urine Urine Culture Pending Received 08/07/17 10:00 Urine Catheterized Urine Urine Culture - Preliminary Staphylococcus Aureus Resulted . Imaging Last 72 hours Impressions Chest X-Ray 08/08/17 0600 Signed Impressions: Service Date/Time: Tuesday, August 08, 2017 04:59 - CONCLUSION: Unchanged bibasilar infiltrates. Pepe Segura Jr., MD Chest X-Ray 08/07/17 1318 Signed Impressions: Service Date/Time: Monday, August 07, 2017 13:29 - CONCLUSION: 1. Right and left central lines in superior vena cava. No pneumothorax. Stable basilar airspace disease. Endotracheal tube and nasogastric tube unchanged. Charles Neal MD Chest X-Ray 08/07/17 0600 Signed Impressions: Service Date/Time: Monday, August 07, 2017 05:12 - CONCLUSION: No significant change. Ra Ballard MD Abdomen X-Ray 08/07/17 0600 Signed Impressions: Service Date/Time: Monday, August 07, 2017 05:16 - CONCLUSION: Benign- appearing abdomen. Nasogastric tube tip is in the upper stomach. Ra Ballard MD Chest CT 08/07/17 0000 Signed Impressions: Service Date/Time: Monday, August 07, 2017 08:36 - CONCLUSION: 1. Bilateral lower lobe consolidating airspace disease. 2. Small to moderate bilateral pleural effusions. 3. Cardiomegaly. Eliud Gar MD . Procedures 07/30/2017: Intubation 07/30/2017: ICP monitor placed . Assessment and Plan Disease Oriented Problem List: (1) Congestive heart failure (2) Anemia (3) Acute kidney insufficiency (4) Respiratory failure (5) Hypertensive emergency (6) Intracranial bleed (7) Edema due to congestive heart failure (8) Major neurocognitive disorder as late effect of traumatic brain injury without behavioral disturbance Symptom Scale: (1) Pain (2) Encephalopathy (3) Dyspnea Pertinent Non-Medical Issues Psychosocial: Patient is originally from [place]. He dated his (Kristin ) in high school, and they have now been for approximately 62 years. 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 Together they have 4 adult children, 10 grandchildren and 5 great-grandchildren. Spiritual: Church thanh Legal: Unclear. Per [place] statutes, in the absence of written advance directives healthcare proxy decision making would fall to the patient's . Patient also has 4 adult children. Danielle and Darryn who live locally have verbally indicated that Danielle is the healthcare surrogate decision maker. Awaiting copies of documentation which should be received tomorrow 08/03/17 Ethical issues impacting care: No known ethical issues impacting care. . Important Contacts Kristin Alonzo, : [phone] Daniellekim Adkins, daughter: [phone] Darryn Alonzo, son: [phone] . Prognosis Patient is an 82-year-old male who has suffered severe brain trauma which is complicated by multiple comorbid conditions. Prognosis is very poor, and the patient may not survive this hospitalization. . Code Status: Full Code Plan * FULL CODE * Decision making: Danielle and Darryn who live locally have verbally indicated that Danielle is the healthcare surrogate decision maker. However, copies of written advanced directives, designation of healthcare surrogate form, have not yet been provided by the family. Per [place] statutes, in the absence of written advanced directives healthcare proxy decision making falls to the patient's . If she is unable to fulfill this role, then healthcare proxy decision making. The majority of the patient's 4 adult children. * Discussed patient with nurse. * Attempted to call patient's children (Darryn and Danielle); have not received return phone call at this time. * At this point, family is in agreement and plan to provide ongoing support, including trach and PEG placement if indicated, to allow the patient time to heal. Darryn did not specify a time frame, but states if the patient does not improve they will stop everything "down the road" because he would not want to live long-term on artificial life support. * Symptom management: = Encephalopathy: Patient remains encephalopathic status post subdural and subarachnoid hemorrhages. He has been off sedation for approximately 24 hours. Opens eyes and moves all extremities spontaneously; no purposeful movement observed. Patient does not arouse to verbal stimuli or follow commands. Follow-up CT brain on 08/04/17 revealed stable intracranial findings including bilateral subdural hematomas, intraventricular blood products and bilateral temporal lobe hemorrhagic contusions. No midline shift or herniation. Ventricle size stable. EEG pending Critical care stating patient's prognosis is very poor with minimal likelihood of any meaningful neurological recovery. = Dyspnea: Patient remains intubated on mechanical ventilation. Follow-up chest x-ray on 08/08/17 showed unchanged bibasilar infiltrates. * Palliative care will follow this patient throughout his hospitalization to establish trust, assist with symptom management and clarification of medical treatment goals . Attestation To help prompt me to consider important information that might be impacting today's encounter and assessment, information from prior notes written by myself or my colleagues may have been "brought forward" into today's note. My signature on this note, however, is an attestation that I personally performed the exam, history, and/or decision-making noted today, and, unless otherwise indicated, the interactions with patient, family, and staff as well as the review of records all occurred today. I also attest that the listed assessment and stated plan reflect my best clinical judgment today based on the combination of historical information, prior notes, and today's exam/ interactions. When time spent is documented, it refers only to time spent today by the signer, or if indicated, combined time spent today by collaborating physician/nurse practitioner. . Elyssa Ricardo Aug 09, 2017 15:19
--- NOTE | 2017-08-09 15:48 | HHI.CCPN ---
Subjective Brief History ONONDAGA: This is a 82-year-old gentleman who fell backwards off of a ladder with brief loss of consciousness and brief round of CPR at the scene was brought in as a level II trauma alert intubated in the trauma bay and upgraded to level I. He was found to have subdural and subarachnoid hemorrhages and was given 2 units of platelets for platelet dysfunction secondary to Plavix use. Final injuries: Right temporal intraparenchymal hemorrhage with slight subdural component Left frontoparietal and temporo-occipital subdural hematoma about 1 cm thick Patient has complex history of CHF,coronary artery disease, diabetes mellitus and chronic renal insufficiency requiring dialysis in 2013. Since then patient has been off dialysis but at this point creatinine is rising. 24 Hour Review/Hospital Course 07/[address] appears to be worse today with slight increase in the size of his bleeds Is currently on a Cardene drip to maintain systolic blood pressure less than 160 , his beta stacie has been held for a heart rate in the mid 50s 08/01/2017 Patient is intubated ventilated on propofol and fentanyl ICP measurements about 5-8 mmHg Remains sedated not moving any extremities at this time Hemodynamically patient is stable with hypertension. Patient is noted to be hypertensive from home and some of medications have been reinstituted In addition to Lopressor and hydralazine patient is currently on Cardene drip in order to keep systolic blood pressure under 160 mmHg Patient will need Catapres patch in order to wean off Cardene In face of increased creatinine and BUN patient did not have IV contrast to assess the chest and abdomen but externally there are no signs of trauma to either Renal function as above noted is impaired with rising creatinine and BUN. Nephrology consult from Dr. Chavez is greatly appreciated Patient will be managed expectantly and as the neurologic function improves sedation will be gradually weaned It should be noted that severe brain trauma in this age group with related medical problems survival is very low and patient is a high mortality probably in the range of 80-90%. 08/02/2017 Patient remains intubated ventilated and sedated with all neuroprotective measures Hemodynamically patient is stable and hypertensive on several antihypertensive drugs including Cardene noted to keep systolic blood pressure under 160 mmHg Bilateral breath sounds remains ventilatory dependent in the face of decreased level of consciousness On assist control ventilation 40% FiO2 Abdomen soft nontender will start on enteral feedings Nephrology help is greatly appreciated in the care of this patient with marginal renal function and he may need intermittent dialysis should his fluid status worsened and he becomes fluid overloaded 08/03/17 severe TBI on elderly patient with multiple medical issues PRINCE superimposed on chronic renal failure compensated metabolic acidosis secondary due to renal failure diuresis initiated by scientific software developer moene for BP control 08/04/2018 Patient this point is off sedation however there is no appreciable neurologic function except for some movement of upper extremities Lenore Coma Scale 4 Hemodynamically patient is stable however quite hypertensive on multiple medications and even on Cardene drip difficulty controlling systolic blood pressure Cardiology help is greatly appreciated. Cardiac function intact and no signs of contusion or acute injury to the heart Bilateral breath sounds decreased over the right base were patient has a infiltrate in the right lower lobe Remains on assist control ventilation fully supported not breathing over the respirator but with good PO2 FiO2 gradient Abdomen is soft and enteral feeds of tolerated Renal function is gradually deteriorating and patient had underlying renal insufficiency prior to this event. He was on dialysis few years ago in an unrelated episode. At this point in discussions with family there is some ambiguity about which way to go. This patient has 90% mortality in 100% morbidity and most likely in the best case scenario patient will require tracheostomy feeding tube and will remain bedridden permanently 08/05/2017 PTD: 6 Mechanically ventilated and sedated Patient remains hypertensive on max Cardene. Increased clonidine patch and added Norvasc. Will have meeting with family to discuss plan of care and decision on whether to progress to dialysis. 08/06/2017 PTD: 7 Patient remains mechanically ventilated and sedated. Remains hypertensive despite numerous agents. Currently on second session of dialysis. 08/07/17 Vomited overnight and likely aspirated Respiratory distress with increased Fio2 requirements overnight Maxed out on Cardene and Cardizem gtts Getting dialysis during visit 08/08/2017 No change in neurologic status patient remains unconscious withdraws to pain Riley Coma Scale 4 Hemodynamically patient is intact however hypertension hard to control Remains on Cardene drip and a slew of antihypertensives Several rounds of V. tach in last 48 hours which resolved spontaneously Bilateral breath sounds with good PO2 FiO2 gradient and improving pulmonary function Abdomen soft Patient aspirated the other day and therefore will be kept off enteral feeds for the time being Ileus due to multiple medications including fentanyl Patient has no reasonable chance of meaningful recovery Family is not sure about tracheostomy and PEG Prognosis poor 08/09 multi organ failure severe HTN on multiple agents-including cardizem/cardene start to move extremities off sedation NG 100cc/12 hrs ,diarrhea staph + BAL on vanco Objective Vital Signs Date Time Temp Pulse Resp B/P (MAP) Pulse Ox O2 Delivery O2 Flow Rate FiO2 08/09/17 14:00 84 08/09/17 12:43 92 40 08/09/17 12:00 99.8 31 127/60 (82) Intake and Output 08/09/17 08/09/17 08/10/17 08:00 16:00 00:00 Intake Total 2354 ml 1075 ml Output Total 280 ml Balance 2074 ml 1075 ml Result Diagram: 08/09/17 0500 08/09/17 0500 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 6 T Hemodynamic/Cardiac cardizem gtt Pulmonary/Respiratory mechanical ventilation Abdomen/GI Nutrition soft Urinary Catheter Assessment Urinary Catheter: Yes Vascular Central Line Catheter Vascular Central Line Catheter: Yes Side: Right Location: Internal, Jugular (Vas cath) Assessment and Plan Assessment: (1) Congestive heart failure ICD Code: I50.9 - Heart failure, unspecified Status: Chronic (2) Anemia ICD Code: D64.9 - Anemia, unspecified Status: Chronic (3) Acute kidney insufficiency ICD Code: N28.9 - Disorder of kidney and ureter, unspecified Status: Chronic (4) Respiratory failure ICD Code: J96.90 - Respiratory failure, unspecified, unspecified whether with hypoxia or hypercapnia Status: Acute (5) CKD (chronic kidney disease) stage 3, GFR 30-59 ml/min ICD Code: N18.3 - Chronic kidney disease, stage 3 (moderate) Status: Chronic (6) Unresponsive ICD Code: R41.89 - Other symptoms and signs involving cognitive functions and awareness Status: Acute (7) Intracranial bleed ICD Code: I62.9 - Nontraumatic intracranial hemorrhage, unspecified Status: Acute (8) Hypertensive emergency ICD Code: I16.1 - Hypertensive emergency Status: Acute (9) Edema due to congestive heart failure ICD Code: I50.9 - Heart failure, unspecified Status: Chronic (10) Dyspnea ICD Code: R06.00 - Dyspnea, unspecified Status: Acute (11) Traumatic brain injury ICD Code: S06.9X9A - Unspecified intracranial injury with loss of consciousness of unspecified duration, initial encounter Status: Acute (12) Major neurocognitive disorder as late effect of traumatic brain injury without behavioral disturbance ICD Code: S06.9X9S - Unspecified intracranial injury with loss of consciousness of unspecified duration, sequela; F02.80 - Dementia in other diseases classified elsewhere without behavioral disturbance Status: Acute Plan ONONDAGA: 82-year-old male who sustained a fall. He fell off a ladder approximately 10 feet, striking his head. + LOC. Short period of CPR and then the patient woke up, confused with unequal pupils. GCS 13. Systolic blood pressure = 200. Patient is on Plavix. INJURIES: Temporal SAH RIGHT temporal SDH ?Aspiration PMHx: CHF, HTN, DM, CRF, HLD, PVD, Perforated appendix- sepsis (2 years ago) Procedures: 07/30: Intubated 07/30 - 08/05 [place] NEUROLOGICAL: -Temporal SAH, RIGHT temporal SDH Neurosurgery consulted Sedated and mechanically ventilated Propofol for sedation Daily sedation vacations Goal RASS score of -2 Serial neuro checks 08/04: CT Brain - stable 08/01: CT brain - stable 07/31: CT brain - increase L SDH. Increase R temporal hemorrhage 07/30 - 08/05: ICP bolt placement Seizure precautions PO Keppra BID HOB elevated 30 degrees Hypernatremia status - 144 CARDIOVASCULAR: Cardiology consulted Patient with history of CHF, HTN, HLD, PVD Continues with Cardene and Cardizem gtts- maxed out Lopressor 5 mg IV q6 hours Hydralazine 100 mg PO BID Hytrin 7 mg PO BID Catapres patch 0.3 mg Norvasc 10 mg PO QD Diuretics - Lasix 80 IV q 8H. 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 07/30: Intubated Likely aspirated overnight IV Abx: vanco Vent bundle CT chest today shows bilateral lower lobe consolidation Patient will need tracheostomy if family decides to continue with aggressive care Palliative care consulted to assist family with goals of care Duonebs VAP protocol in place - Follow-up Labs tomorrow CXR PRN GASTROINTESTINAL: Not tolerating tube feeding Gastric residual > 100 cc OGT to LIWS TF on hold Patient will need PEG placement Bowel regimen Reglan 5 mg q 8h for increased residuals RENAL: Certified Orthotist Practice Manager consulted Patient with history of chronic renal failure Strict I&O LASIX 80 IV q 8H. Diuril 500mg BID - per nephrology Hemodialysis per nephrology Hematuria with clots requiring PRN [place] irrigation 08/01: US kidney - no hydronephrosis ENDOCRINE: Patient with history of DM SSI q 6h HEMATOLOGY: Patient with a history of chronic anemia Does not meet transfusion trigger this time 08/02: US Lower extremity study - NEGATIVE for DVT ID: Low-grade temps No leukocytosis Likely aspirated overnight IV Abx: Maxipime LINES: 07/30: ETT 07/30: OGT 08/05: R IJ vas cath 08/07: L SC TLC 07/30: [place] PROPHYLAXIS: VAP - protocol in place GI - Pepcid 10 mg BID DVT - Mechanical VTE with SCDs. SQ heparin held due to hematuria SKIN: Warm and dry Generalized edema Plan of care discussed with RN at bedside. TBI/MOF/geriatric patient poor prognosis,however family hopeful patient has advanced directives-,which need to be seen before proceeding with peg/trach Problem Qualifiers (1) Congestive heart failure: Qualified Codes: I50.9 - Heart failure, unspecified (2) Anemia: Qualified Codes: D64.9 - Anemia, unspecified (3) Respiratory failure: Qualified Codes: J96.00 - Acute respiratory failure, unspecified whether with hypoxia or hypercapnia (4) Dyspnea: Qualified Codes: R06.00 - Dyspnea, unspecified (5) Traumatic brain injury: Rebeca Vines MD Aug 09, 2017 15:48
--- NOTE | 2017-08-09 15:55 | HHI.NSPN ---
(Kathe Murphy) Note Status Status: Progress Note (Kathe Murphy) Interval History Interval History This is an 82-year-old gentleman who fell backwards off of a ladder approximately 10 feet. He underwent a brief round of CPR but was found to be spontaneously breathing so it was stopped patient was brought in the trauma bay hypertensive and confused he was intubated in the trauma bay. No seizure activity reported. No tongue biting. No incontinence of stool or urine. No tonic-clonic movements. He had unequal pupils and a coffee-ground emesis prior to intubation. He was upgraded to a level I trauma alert. He was resuscitated according to the ATLS protocol and full trauma workup was carried down. He was found to have right subarachnoid hemorrhage as well as subdural hematoma. He was given 2 units of platelets that for his platelet insufficiency due to Plavix. He was moving his extremities. Neurosurgical consultation was requested 07/31/17. Remains intubated and sedated. ICP monitor in place. A follow-up CT of the brain was obtained 08/01/17: intubated and sedated, ICPs below 10. 08/02/17: intubated, sedated. ICPs stable. f/u CT Brain yesterday showed slight increase in size of left subdural hematoma per Dr. Horne' review. decreasing renal function - nephrology consulted, also now with PVCs. 08/03/17: remains intubated, sedated on fentanyl and propofol drips. ICPs below 20. 08/04/17: ICPs stable overnight, f/u CT Brain this morning completed. intubated and sedated. 08/05/17: intubated and currently only minimally sedated, minimal eye opening when suctioned. 08/06 remains mechanically ventilated and sedated. Remains hypertensive despite numerous agents. Currently on second session of dialysis. 08/07. He vomited overnight and likely aspirated. Respiratory distress with increased Fio2 requirements. Maximal dose Cardene and Cardizem drips. Getting dialysis today 08/08: no change to his neuro exam. intubated, very minimal sedation - does not open eyes, withdraws to both feet. 08/09: intubated, off sedative drips. family in room, patient opening eyes, focusing today. for dialysis. (Kathe Murphy) Labs, Micro, & Vital Signs Results Date Time Temp Pulse Resp B/P (MAP) Pulse Ox O2 Delivery O2 Flow Rate FiO2 08/09/17 14:00 84 08/09/17 12:43 92 40 08/09/17 12:00 99.8 83 31 127/60 (82) 94 08/09/17 12:00 40 08/09/17 12:00 83 08/09/17 10:00 93 08/09/17 08:58 94 40 08/09/17 08:03 86 165/60 08/09/17 08:02 101 165/60 08/09/17 08:00 50 08/09/17 08:00 112 08/09/17 08:00 100.6 99 26 165/60 (95) 95 08/09/17 06:00 117 08/09/17 04:53 94 40 08/09/17 04:03 114 155/66 08/09/17 04:00 99.8 106 16 155/66 (95) 95 08/09/17 04:00 113 08/09/17 04:00 50 08/09/17 03:27 115 141/63 08/09/17 02:00 105 08/09/17 00:49 94 40 08/09/17 00:00 97 08/09/17 00:00 50 08/08/17 23:09 97 146/65 08/08/17 22:00 109 08/08/17 20:00 99.8 112 19 183/75 (111) 96 08/08/17 20:00 113 08/08/17 20:00 50 08/08/17 19:53 98 40 08/08/17 19:49 108 172/74 08/08/17 18:55 106 107/51 08/08/17 18:00 110 08/08/17 16:47 96 40 08/08/17 16:00 120 08/08/17 16:00 99.0 112 22 128/62 (84) 95 08/08/17 16:00 50 08/10/17 07:00 Intake Total 1175 ml Balance 1175 ml Constitutional Vital Signs Date Time Temp Pulse Resp B/P (MAP) Pulse Ox O2 Delivery O2 Flow Rate FiO2 08/09/17 14:00 84 08/09/17 12:43 92 40 08/09/17 12:00 99.8 83 31 127/60 (82) 94 08/09/17 12:00 40 08/09/17 12:00 83 08/09/17 10:00 93 08/09/17 08:58 94 40 08/09/17 08:03 86 165/60 08/09/17 08:02 101 165/60 08/09/17 08:00 50 08/09/17 08:00 112 08/09/17 08:00 100.6 99 26 165/60 (95) 95 08/09/17 06:00 117 08/09/17 04:53 94 40 08/09/17 04:03 114 155/66 08/09/17 04:00 99.8 106 16 155/66 (95) 95 08/09/17 04:00 113 08/09/17 04:00 50 08/09/17 03:27 115 141/63 08/09/17 02:00 105 08/09/17 00:49 94 40 08/09/17 00:00 97 08/09/17 00:00 50 08/08/17 23:09 97 146/65 08/08/17 22:00 109 08/08/17 20:00 99.8 112 19 183/75 (111) 96 08/08/17 20:00 113 08/08/17 20:00 50 08/08/17 19:53 98 40 08/08/17 19:49 108 172/74 08/08/17 18:55 106 107/51 08/08/17 18:00 110 08/08/17 16:47 96 40 08/08/17 16:00 120 08/08/17 16:00 99.0 112 22 128/62 (84) 95 08/08/17 16:00 50 08/10/17 07:00 Intake Total 1175 ml Balance 1175 ml (Kathe Murphy) Review of Systems ROS Limitations: Intubated (Kathe Murphy) Physical Exam Mr. Alonzo is intubated and without sedation. There is increased eye opening today. Head: Right bolt site with steri strips in place, dry. Cranial Nerves: Pupils right 2mm, left 3 mm round. Cervical Spine: soft, supple Motor: not following commands for testing,increase response to stimulation and withdrawing in both lower extremities, no response to pain in upper extremities. diffuse extremity swelling Cerebellar: cannot be adequately assessed due to the patient's neurological condition. Heart: regular rate, rhythm Resp: clear, mechanically ventilated Skin: warm, dry (Kathe Murphy) Mr. Alonzo is intubated and without sedation. There is increased eye opening today. Head: Right bolt site with steri strips in place, dry. Cranial Nerves: Pupils right 2mm, left 3 mm round. Cervical Spine: soft, supple Motor: not following commands for testing,increase response to stimulation and withdrawing in both lower extremities, no response to pain in upper extremities. diffuse extremity swelling Cerebellar: cannot be adequately assessed due to the patient's neurological condition. Heart: regular rate, rhythm Resp: clear, mechanically ventilated Skin: warm, dry (Les Horne MD) Medications Current Medications Current Medications Medications (Trade) Dose Ordered Sig/Juliet Route PRN Reason Start Time Stop Time Status Last Admin Dose Admin Sodium Chloride (NS Flush) 2 ml UNSCH PRN IV FLUSH FLUSH AFTER USING IV ACCESS 07/30/17 12:45 08/09/17 07:48 Ondansetron HCl (Zofran Inj) 4 mg Q6H PRN IV PUSH NAUSEA OR VOMITING 07/30/17 12:45 08/06/17 18:19 Miscellaneous Information 1 Q361D XX 07/30/17 12:45 Chlorhexidine Gluconate (Chlorhexidine 2% Cloth) Taper DAILY@04 TOP 07/31/17 04:00 07/27/18 03:59 08/05/17 03:26 Chlorhexidine Gluconate (Chlorhexidine 2% Cloth) 3 pack UNSCH PRN TOP HYGIENIC CARE 07/30/17 12:45 Chlorhexidine Gluconate (Peridex 0.12% Liq) 15 ml BID@08,20 MT 07/30/17 20:00 08/09/17 07:48 Famotidine (Pepcid) 10 mg BID PO 07/30/17 21:00 08/09/17 07:47 Pravastatin Sodium (Pravachol) 40 mg DAILY PO 07/31/17 09:00 08/09/17 07:47 Dextrose (D50w (Vial) Inj) 50 ml UNSCH PRN IV PUSH HYPOGLYCEMIA-SEE COMMENTS 07/31/17 07:45 Glucagon (Glucagon Inj) 1 mg UNSCH PRN OTHER HYPOGLYCEMIA-SEE COMMENTS 07/31/17 07:45 Senna/Docusate Sodium (Jackelyn-Colace) 1 tab BID PO 08/01/17 21:00 08/09/17 07:47 Bisacodyl (Dulcolax Supp) 10 mg DAILY PRN RECTAL Constipation 08/01/17 16:15 Insulin Aspart (NovoLOG SUPPLEMENTAL SCALE) 1 Q6HR SQ 08/01/17 18:00 08/09/17 11:39 Hydralazine HCl (Apresoline Inj) 10 mg Q4HR PRN IV PUSH SBP>160, DBP>90 08/04/17 12:30 08/09/17 08:54 Furosemide (Lasix Inj) 80 mg Q8HR IV PUSH 08/04/17 22:00 08/09/17 14:35 Magnesium Hydroxide (Milk Of Mariya Liq) 30 ml BID PO 08/05/17 09:00 08/06/17 07:56 Metoclopramide HCl (Reglan Inj) 5 mg Q8HR IV PUSH 08/05/17 14:00 08/09/17 14:36 Heparin Sodium (Porcine) (Heparin Inj) 5,000 units Q8HR SQ 08/05/17 14:00 Future Hold 08/06/17 06:13 Sodium Chloride 1,000 ml @ 0 mls/hr Q0M PRN OTHER For Prime & Rinse Back 08/05/17 13:51 Sodium Chloride 1,000 ml @ 200 mls/hr Q5H PRN IV WITH DIALYSIS 08/05/17 13:51 08/06/17 13:21 Sodium Chloride 1,000 ml @ 0 mls/hr Q0M PRN OTHER WITH DIALYSIS 08/05/17 13:51 Albumin Human 100 ml @ 60 mls/hr UNSCH PRN IV WITH DIALYSIS 08/05/17 14:00 08/09/17 14:07 Sodium Chloride (NS Flush) 5 ml UNSCH PRN IV FLUSH WITH DIALYSIS 08/05/17 14:00 Heparin Sodium (Porcine) (Heparin Inj) UNSCH PRN .XX WITH DIALYSIS 08/05/17 14:00 08/09/17 14:07 Gentamicin Sulfate (Gentamicin Inj) 20 mg UNSCH PRN OTHER WITH DIALYSIS 08/05/17 14:00 08/09/17 14:06 Ondansetron HCl (Zofran Inj) 4 mg UNSCH PRN IV PUSH WITH DIALYSIS 08/05/17 14:00 Acetaminophen (Tylenol) 650 mg UNSCH PRN PO for headach, pain, temp > 101F 08/05/17 14:00 Diphenhydramine HCl (Benadryl) 25 mg UNSCH PRN PO for hives/itching/anaphylaxis 08/05/17 14:00 Nitroglycerin (Nitrostat Sl) 0.4 mg UNSCH PRN SL CHEST PAIN 08/05/17 14:00 Clonidine (Catapres) 0.1 mg UNSCH PRN PO for BP > 180/100 X 2 readings 08/05/17 14:00 08/08/17 01:57 Gelatin (Gelfoam 12 Mm/7 Mm Top) 1 foam UNSCH PRN TOP SEE LABEL COMMENTS 08/05/17 14:00 Nicardipine HCl 50 mg/Sodium Chloride 500 ml @ 50 mls/hr TITRATE PRN IV Blood pressure management 08/06/17 00:15 08/09/17 08:02 Albuterol Sulfate (Albuterol Neb) 2.5 mg Q2HR NEB PRN NEB dyspnea 08/06/17 09:45 Amlodipine Besylate (Norvasc) 10 mg DAILY PO 08/07/17 09:00 08/09/17 07:47 Hydralazine HCl (Apresoline) 100 mg Q8HR PO 08/06/17 14:00 08/09/17 14:36 Lactulose (Lactulose Liq) 30 ml QID PO 08/06/17 13:00 08/08/17 20:52 Polyethylene Glycol (Miralax) 17 gm BID NG 08/06/17 21:00 08/09/17 07:47 Allopurinol (Zyloprim) 100 mg DAILY PO 08/07/17 09:00 08/09/17 07:47 Terazosin HCl (Hytrin) 7 mg BID NG 08/06/17 13:30 08/09/17 08:02 Metoprolol Tartrate (Lopressor Inj) 2.5 mg Q6H PRN IV PUSH HR >120 08/07/17 07:45 08/08/17 08:35 Carvedilol (Coreg) 12.5 mg Q12HR PO 08/08/17 09:00 08/09/17 07:47 Chlorothiazide (Diuril) 500 mg Q12H G-TUBE 08/09/17 03:15 08/09/17 14:36 Diltiazem HCl (Cardizem) 90 mg Q6HR PO 08/09/17 12:00 08/09/17 11:13 Albuterol/ Ipratropium (Duoneb Neb) 1 ampule Q6HR NEB NEB 08/09/17 16:00 Clonidine (Catapres) 0.3 mg Q8HR PO 08/09/17 14:00 08/09/17 14:36 Miscellaneous Information 2 Q7D T-DERMAL 08/12/17 11:00 Clonidine (Catapres-Tts 0.3 Mg Patch.7d) 2 patch Q7D T-DERMAL 08/09/17 12:00 08/09/17 11:13 Pharmacy Profile Note 0 ml @ 0 mls/hr UNSCH OTHER 08/09/17 10:30 Cefepime HCl 1000 mg/Sodium Chloride 100 ml @ 200 mls/hr Q24H IV 08/10/17 09:00 (Kathe Murphy) Current Medications Current Medications Ondansetron HCl (Zofran Inj) 4 mg STK-MED ONCE .ROUTE ; Start 07/30/17 at 11:55; Stop 07/30/17 at 11:56; Status DC Propofol 100 ml @ As Directed STK-MED ONCE .ROUTE ; Start 07/30/17 at 12:04; Stop 07/30/17 at 12:05; Status DC Nicardipine HCl (Cardene Inj) 25 mg STK-MED ONCE .ROUTE ; Start 07/30/17 at 12:08 ; Stop 07/30/17 at 12:09; Status DC Sodium Chloride 1,000 ml @ 60 mls/hr [id number] IV Last administered on 08/01/17at 08:45; Start 07/30/17 at 12:31; Stop 08/01/17 at 11:50; Status DC Sodium Chloride (NS Flush) 2 ml UNSCH PRN IV FLUSH FLUSH AFTER USING IV ACCESS Last administered on 08/09/17at 07:48; Start 07/30/17 at 12:45 Ondansetron HCl (Zofran Inj) 4 mg Q6H PRN IV PUSH NAUSEA OR VOMITING Last administered on 08/06/17at 18:19; Start 07/30/17 at 12:45 Multivitamins 10 ml/Thiamine HCl 100 mg/Folic Acid 1 mg/Sodium Chloride 511.2 ml @ 125 mls/hr Q24H IV Last administered on 08/01/17at 15:19; Start 07/30/17 at 15:00; Stop 08/01/17 at 19:06; Status DC Docusate Sodium (Colace) 100 mg BID PO Last administered on 08/01/17at 08:44; Start 07/30/17 at 21:00; Stop 08/01/17 at 16:11; Status DC Magnesium Hydroxide (Milk Of Magnesia Liq) 30 ml Q6H PRN PO CONSTIPATION; Start 07/30/17 at 12:45; Stop 08/01/17 at 16:11; Status DC Miscellaneous Information 1 Q361D XX ; Start 07/30/17 at 12:45 Chlorhexidine Gluconate (Chlorhexidine 2% Cloth) Taper DAILY@04 TOP Last administered on 08/05/17at 03:26; Start 07/31/17 at 04:00; Stop 07/27/18 at 03:59 Chlorhexidine Gluconate (Chlorhexidine 2% Cloth) 3 pack UNSCH PRN TOP HYGIENIC CARE; Start 07/30/17 at 12:45 Propofol 100 ml @ 0 mls/hr TITRATE PRN IV SEDATION; Start 07/30/17 at 13:00; Stop 07/30/17 at 13:30; Status DC Chlorhexidine Gluconate (Peridex 0.12% Liq) 15 ml BID@08,20 MT Last administered on 08/10/17at 08:46; Start 07/30/17 at 20:00 Propofol 100 ml @ 0 mls/hr TITRATE PRN IV SEDATION; Start 07/30/17 at 13:00; Stop 07/30/17 at 13:00; Status DC Fentanyl Citrate 250 ml TITRATE PRN IV SEDATION; Start 07/30/17 at 13:00; Stop 07/30/17 at 13:00; Status DC Fentanyl Citrate 250 ml TITRATE PRN IV SEDATION; Start 07/30/17 at 13:00; Stop 07/30/17 at 13:30; Status DC Albuterol/ Ipratropium (Duoneb Neb) 1 ampule Q6HR NEB NEB Last administered on 08/02/17at 20:40; Start 07/30/17 at 16:00; Stop 08/02/17 at 20:55; Status DC Diphtheria/ Tetanus/Acell Pertussis (Boostrix Inj) 0.5 ml STK-MED ONCE IM ; Start 07/30/17 at 12:58; Stop 07/30/17 at 12:59; Status DC Etomidate (Amidate Inj) 20 mg STK-MED ONCE .ROUTE ; Start 07/30/17 at 13:01; Stop 07/30/17 at 13:02; Status DC Succinylcholine Chloride (Quelicin Inj) 200 mg STK-MED ONCE .ROUTE ; Start at 13:01; Stop 07/30/17 at 13:02; Status DC Fentanyl Citrate 250 ml @ 5 mls/hr TITRATE PRN IV Sedation Last administered on 08/05/17at 22:20; Start 07/30/17 at 13:30; Stop 08/07/17 at 16:32; Status DC Propofol 100 ml @ 2.64 mls/hr TITRATE PRN IV SEDATION Last administered on 05/16at 06:03; Start 07/30/17 at 13:30; Stop 08/09/17 at 10:23; Status DC Famotidine (Pepcid) 10 mg BID PO Last administered on 08/10/17at 08:47; Start at 21:00 Nicardipine HCl 25 mg/Sodium Chloride 250 ml @ 50 mls/hr TITRATE PRN IV Blood pressure management Last administered on 08/05/17at 22:23; Start 07/30/17 at 16:15 ; Stop 08/06/17 at 00:11; Status DC Spironolactone (Aldactone) 25 mg DAILY PO Last administered on 08/01/17at 08:44; Start 07/31/17 at 09:00; Stop 08/01/17 at 09:54; Status DC Pravastatin Sodium (Pravachol) 40 mg DAILY PO Last administered on 08/10/17at 08 :47; Start 07/31/17 at 09:00 Metoprolol Tartrate (Lopressor) 25 mg Q12HR PO Last administered on 08/03/17at 20 :33; Start 07/31/17 at 09:00; Stop 08/04/17 at 09:36; Status DC Hydralazine HCl (Apresoline) 25 mg Q12HR PO Last administered on 07/31/17at 07:42 ; Start 07/31/17 at 09:00; Stop 07/31/17 at 09:00; Status DC Furosemide (Lasix Inj) 40 mg BID@09,18 IV PUSH Last administered on 08/02/17at 10 :33; Start 07/31/17 at 09:00; Stop 08/02/17 at 13:29; Status DC Dextrose (D50w (Vial) Inj) 50 ml UNSCH PRN IV PUSH HYPOGLYCEMIA-SEE COMMENTS; Start 07/31/17 at 07:45 Glucagon (Glucagon Inj) 1 mg UNSCH PRN OTHER HYPOGLYCEMIA-SEE COMMENTS; Start 07/31/17 at 07:45 Insulin Aspart (NovoLOG SUPPLEMENTAL SCALE) 1 Q6H SQ ; Start 07/31/17 at 07:45; Stop 08/01/17 at 17:31; Status DC Sodium Chloride 250 ml @ 15 mls/hr ONCE ONCE IV Last administered on at 10:55; Start 07/31/17 at 08:15; Stop 08/01/17 at 00:54; Status DC Terazosin HCl (Hytrin) 10 mg HS PO Last administered on 08/05/17at 20:12; Start 07/31/17 at 21:00; Stop 08/06/17 at 13:26; Status DC Hydralazine HCl (Apresoline) 100 mg Q12HR PO Last administered on 08/05/17at 20: 13; Start 07/31/17 at 09:00; Stop 08/06/17 at 09:42; Status DC Levetriacetam 500 mg/Sodium Chloride 105 ml @ 420 mls/hr Q12HR IV Last administered on 08/06/17at 07:57; Start 08/01/17 at 10:00; Stop 08/06/17 at 09:42 ; Status DC Dextrose 1,000 ml @ 42 mls/hr [id number] IV Last administered on 08/01/17at 13:09; Start 08/01/17 at 12:00; Stop 08/01/17 at 16:51; Status DC Chlorothiazide Sodium (Diuril Inj) 250 mg Q12H IV Last administered on at 13:15; Start 08/01/17 at 13:00; Stop 08/02/17 at 13:29; Status DC Clonidine (Catapres-Tts 0.2 Mg Patch.7d) 1 patch Q7D T-DERMAL ; Start 08/01/17 at 13:30; Stop 08/01/17 at 15:09; Status DC Clonidine (Catapres-Tts 0.2 Mg Patch.7d) 1 patch Q7D T-DERMAL ; Start 08/01/17 at 16:00; Stop 08/01/17 at 17:30; Status DC Miscellaneous Information 1 Q7D T-DERMAL ; Start 08/08/17 at 16:00; Stop at 16:00; Status DC Senna/Docusate Sodium (Jackelyn-Colace) 1 tab BID PO Last administered on at 22:16; Start 08/01/17 at 21:00 Lactulose (Lactulose Liq) 30 ml DAILY PO Last administered on 08/09/17at 07:47; Start 08/01/17 at 16:15; Stop 08/09/17 at 10:39; Status DC Bisacodyl (Dulcolax Supp) 10 mg DAILY PRN RECTAL Constipation; Start 08/01/17 at 16:15 Clonidine (Catapres-Tts 0.2 Mg Patch.7d) 1 patch Q7D T-DERMAL Last administered on 08/01/17at 20:31; Start 08/01/17 at 20:00; Stop 08/05/17 at 09:18; Status DC Miscellaneous Information 1 Q7D T-DERMAL ; Start 08/01/17 at 20:00; Stop 08/05/17 at 09:18; Status DC Insulin Aspart (NovoLOG SUPPLEMENTAL SCALE) 1 Q6HR SQ Last administered on 08/10at 11:46; Start 08/01/17 at 18:00 Sodium Bicarbonate (Sodium Bicarbonate 8.4% Inj) 50 meq UNSCH X1 IV Last administered on 08/02/17at 05:41; Start 08/02/17 at 05:45; Stop 08/02/17 at 08:20; Status DC Chlorothiazide Sodium (Diuril Inj) 500 mg Q12H IV Last administered on 01:08; Start 08/03/17 at 01:00; Stop 08/09/17 at 10:41; Status DC Furosemide (Lasix Inj) 80 mg BID@18 IV PUSH Last administered on 08/04/17at 18 :34; Start 08/02/17 at 18:00; Stop 08/04/17 at 19:28; Status DC Albuterol/ Ipratropium (Duoneb Neb) 1 ampule Q6HR NEB NEB Last administered on 08/06/17 07:52; Start 08/02/17 at 22:00; Stop 08/06/17 at 09:35; Status DC Metoprolol Tartrate (Lopressor Inj) 5 mg Q6H IV PUSH Last administered on 09:24; Start 08/04/17 at 10:00; Stop 08/09/17 at 10:06; Status DC Hydralazine HCl (Apresoline Inj) 10 mg Q4HR PRN IV PUSH SBP>160, DBP>90 Last administered on 08/09/17 08:54; Start 08/04/17 at 12:30 Furosemide (Lasix Inj) 80 mg Q8HR IV PUSH Last administered on 08/10/17at 13:44 ; Start 08/04/17 at 22:00 Sodium Bicarbonate (Sodium Bicarbonate 8.4% Inj) 100 meq STK-MED ONCE .ROUTE Last administered on 08/05/17 05:25; Start 08/05/17 at 05:25; Stop 08/05/17 at 05: 26; Status DC Bisacodyl (Dulcolax Supp) 10 mg ONCE ONCE RECTAL Last administered on 08:03; Start 08/05/17 at 07:45; Stop 08/05/17 at 07:46; Status DC Magnesium Hydroxide (Milk Of Magnesia Liq) 30 ml BID PO Last administered on 07:56; Start 08/05/17 at 09:00 Clonidine (Catapres-Tts 0.3 Mg Patch.7d) 1 patch Q7D T-DERMAL Last administered on 3/9/18at 11:49; Start 08/05/17 at 11:00; Stop 08/09/17 at 10:08; Status DC Metoclopramide HCl (Reglan Inj) 5 mg Q8HR IV PUSH Last administered on at 13:45; Start 08/05/17 at 14:00 Amlodipine Besylate (Norvasc) 5 mg DAILY PO Last administered on 08/05/17at 09:18 ; Start 08/05/17 at 09:15; Stop 08/06/17 at 09:42; Status DC Dextrose (D50w (Syr) Inj) 50 ml ONCE ONCE IV PUSH Last administered on at 10:44; Start 08/05/17 at 09:15; Stop 08/05/17 at 09:16; Status DC Insulin Human Regular (NovoLIN R INJ) 10 units ONCE ONCE IV PUSH Last administered on 08/05/17at 10:53; Start 08/05/17 at 09:15; Stop 08/05/17 at 09:16; Status DC Sodium Polystyrene Sulfonate (Kayexalate Liq) 15 gm Q2HR PO Last administered on 08/05/17at 15:02; Start 08/05/17 at 10:00; Stop 08/05/17 at 14:02; Status DC Heparin Sodium (Porcine) (Heparin Inj) 5,000 units Q8HR SQ Last administered on 08/10/17at 13:45; Start 08/05/17 at 14:00; Status Future hold Miscellaneous Information 1 Q7D T-DERMAL ; Start 08/12/17 at 11:00; Stop at 11:00; Status DC Sodium Chloride 1,000 ml @ 0 mls/hr Q0M PRN OTHER For Prime & Rinse Back; Start 08/05/17 at 13:51 Sodium Chloride 1,000 ml @ 200 mls/hr Q5H PRN IV WITH DIALYSIS Last administered on 08/06/17at 13:21; Start 08/05/17 at 13:51 Sodium Chloride 1,000 ml @ 0 mls/hr Q0M PRN OTHER WITH DIALYSIS; Start 08/05/17 at 13:51 Albumin Human 100 ml @ 60 mls/hr UNSCH PRN IV WITH DIALYSIS Last administered on 08/10/17at 09:14; Start 08/05/17 at 14:00 Sodium Chloride (NS Flush) 5 ml UNSCH PRN IV FLUSH WITH DIALYSIS; Start at 14:00 Heparin Sodium (Porcine) (Heparin Inj) UNSCH PRN .XX WITH DIALYSIS Last administered on 08/10/17at 09:14; Start 08/05/17 at 14:00 Gentamicin Sulfate (Gentamicin Inj) 20 mg UNSCH PRN OTHER WITH DIALYSIS Last administered on 08/10/17at 09:14; Start 08/05/17 at 14:00 Ondansetron HCl (Zofran Inj) 4 mg UNSCH PRN IV PUSH WITH DIALYSIS; Start at 14:00 Acetaminophen (Tylenol) 650 mg UNSCH PRN PO for headach, pain, temp > 101F; Start 08/05/17 at 14:00 Diphenhydramine HCl (Benadryl) 25 mg UNSCH PRN PO for hives/itching/anaphylaxis ; Start 08/05/17 at 14:00 Nitroglycerin (Nitrostat Sl) 0.4 mg UNSCH PRN SL CHEST PAIN; Start 08/05/17 at 14:00 Clonidine (Catapres) 0.1 mg UNSCH PRN PO for BP > 180/100 X 2 readings Last administered on 08/08/17at 01:57; Start 08/05/17 at 14:00 Gelatin (Gelfoam 12 Mm/7 Mm Top) 1 foam UNSCH PRN TOP SEE LABEL COMMENTS; Start 08/05/17 at 14:00 Heparin Sodium (Porcine) (Heparin Inj) 10,000 units NOW ONCE IV PUSH Last administered on 08/05/17at 17:10; Start 08/05/17 at 17:00; Stop 08/05/17 at 17:07; Status DC Nicardipine HCl 50 mg/Sodium Chloride 500 ml @ 50 mls/hr TITRATE PRN IV Blood pressure management Last administered on 08/09/17at 18:14; Start 08/06/17 at 00: 15 Albuterol/ Ipratropium (Duoneb Neb) 1 ampule Q6HR NEB NEB Last administered on 08/09/17at 08:58; Start 08/06/17 at 10:00; Stop 08/09/17 at 10:05; Status DC Albuterol Sulfate (Albuterol Neb) 2.5 mg Q2HR NEB PRN NEB dyspnea; Start at 09:45 Amlodipine Besylate (Norvasc) 10 mg DAILY PO Last administered on 08/10/17at 08: 47; Start 08/07/17 at 09:00 Hydralazine HCl (Apresoline) 100 mg Q8HR PO Last administered on 08/10/17at 13: 45; Start 08/06/17 at 14:00 Levetriacetam (Keppra Liq) 500 mg Q12HR NG Last administered on 08/08/17at 08: 33; Start 08/06/17 at 21:00; Stop 08/08/17 at 10:14; Status DC Lactulose (Lactulose Liq) 30 ml QID PO Last administered on 08/09/17at 22:15; Start 08/06/17 at 13:00 Polyethylene Glycol (Miralax) 17 gm BID NG Last administered on 08/09/17at 07:47 ; Start 08/06/17 at 21:00 Mineral Oil (Kondremul Liq) 30 ml ONCE ONCE PO Last administered on 08/06/17at 14:44; Start 08/06/17 at 09:45; Stop 08/06/17 at 10:42; Status DC Glycerin (Glycerin Adult Supp) 2 gm ONCE ONCE RECTAL Last administered on 08/06at 14:44; Start 08/06/17 at 09:45; Stop 08/06/17 at 10:40; Status DC Methylnaltrexone [place] (Relistor Inj) 12 mg ONCE ONCE SQ Last administered on 08/06/17at 14:44; Start 08/06/17 at 09:45; Stop 08/06/17 at 10:42; Status DC Allopurinol (Zyloprim) 100 mg DAILY PO Last administered on 08/10/17at 08:47; Start 08/07/17 at 09:00 Terazosin HCl (Hytrin) 7 mg BID NG Last administered on 08/10/17at 09:14; Start 08/06/17 at 13:30 Diltiazem HCl (Cardizem Inj) 20 mg ONCE ONCE IV PUSH ; Start 08/06/17 at 22:45 ; Stop 08/06/17 at 22:46; Status Cancel Diltiazem HCl 125 mg/Sodium Chloride 125 ml @ 5 mls/hr TITRATE PRN IV Tachycardia Last administered on 08/09/17at 08:03; Start 08/06/17 at 22:45; Stop 08/09/17 at 10:13; Status DC Diltiazem HCl (Cardizem Inj) 20 mg ONCE ONCE IV Last administered on at 23:25; Start 08/06/17 at 23:30; Stop 08/06/17 at 23:31; Status DC Mannitol 100 ml @ As Directed STK-MED ONCE .ROUTE ; Start 08/07/17 at 07:16; Stop 08/07/17 at 07:17; Status DC Sodium Bicarbonate (Sodium Bicarbonate 8.4% Inj) 50 meq NOW ONCE IV Last administered on 08/07/17at 07:51; Start 08/07/17 at 07:45; Stop 08/07/17 at 07:46 ; Status DC Diltiazem HCl (Cardizem Inj) 25 mg STK-MED ONCE .ROUTE Last administered on 04/16at 07:51; Start 08/07/17 at 07:36; Stop 08/07/17 at 07:37; Status DC Sodium Bicarbonate (Sodium Bicarbonate 8.4% Inj) 50 meq ONCE ONCE IV PUSH ; Start 08/07/17 at 08:30; Stop 08/07/17 at 08:31; Status DC Metoprolol Tartrate (Lopressor Inj) 2.5 mg Q6H PRN IV PUSH HR >120 Last administered on 08/08/17at 08:35; Start 08/07/17 at 07:45 Cefepime HCl 1000 mg/Sodium Chloride 100 ml @ 200 mls/hr Q12H IV Last administered on 08/09/17at 09:24; Start 08/07/17 at 10:00; Stop 08/09/17 at 14:53 ; Status DC Vancomycin HCl 1000 mg/Sodium Chloride 250 ml @ 250 mls/hr ONCE ONCE IV Last administered on 08/07/17at 10:34; Start 08/07/17 at 09:00; Stop 08/07/17 at 09:59 ; Status DC Diltiazem HCl (Cardizem Inj) 15 mg ONCE ONCE IV ; Start 08/07/17 at 08:30; Stop 08/07/17 at 08:31; Status DC Carvedilol (Coreg) 12.5 mg Q12HR PO Last administered on 08/10/17at 08:47; Start 08/08/17 at 09:00 Potassium Chloride 100 ml @ 50 mls/hr NOW ONCE IV Last administered on at 11:54; Start 08/08/17 at 11:00; Stop 08/08/17 at 12:59; Status DC Chlorothiazide (Diuril) 500 mg Q12H G-TUBE Last administered on 08/10/17at 13:45 ; Start 08/09/17 at 03:15 Potassium Chloride (KCl) 20 meq NOW ONCE PO Last administered on 08/09/17at 09: 24; Start 08/09/17 at 09:30; Stop 08/09/17 at 09:31; Status DC Potassium Chloride 100 ml @ 25 mls/hr ONCE ONCE IV Last administered on at 09:24; Start 08/09/17 at 09:30; Stop 08/09/17 at 13:29; Status DC Diltiazem HCl (Cardizem) 90 mg Q6HR PO Last administered on 08/10/17at 11:46; Start 08/09/17 at 12:00 Albuterol/ Ipratropium (Duoneb Neb) 1 ampule Q6HR NEB NEB Last administered on 08/10/17at 08:39; Start 08/09/17 at 16:00 Clonidine (Catapres) 0.3 mg Q8HR PO Last administered on 08/10/17at 13:45; Start 08/09/17 at 14:00 Miscellaneous Information 2 Q7D T-DERMAL ; Start 08/12/17 at 11:00 Clonidine (Catapres-Tts 0.3 Mg Patch.7d) 2 patch Q7D T-DERMAL Last administered on 08/09/17at 11:13; Start 08/09/17 at 12:00 Vancomycin HCl 1000 mg/Sodium Chloride 250 ml @ 250 mls/hr ONCE ONCE IV Last administered on 08/09/17at 11:32; Start 08/09/17 at 11:00; Stop 08/09/17 at 11:59 ; Status DC Pharmacy Profile Note 0 ml @ 0 mls/hr UNSCH OTHER ; Start 08/09/17 at 10:30; Stop 08/10/17 at 08:13; Status DC Cefepime HCl 1000 mg/Sodium Chloride 100 ml @ 200 mls/hr Q24H IV Last administered on 08/10/17at 08:47; Start 08/10/17 at 09:00 (Les Horne MD) Medical Decision Making MDM Remarks 82-year-old gentleman who fell backwards off of a ladder approximately 10 feet TBI, s/p placement of intracranial pressure monitor with stable ICPs CT Brain 07/31/17: increase in the size of the left subdural hematoma. Stable right subdural hematoma. Increase in size of the right temporal tip hematoma. Stable size left temporal hematoma 08/02/27: Stable intraparenchymal, subdural, and intraventricular hemorrhage. No midline shift or new sites of hemorrhage. 08/04/17 reports Stable intracranial findings including bilateral subdural hematomas, intraventricular blood products, and bilateral temporal lobe hemorrhagic contusions There is no midline shift or herniation. Ventricles are stable in size. neuro exam improving - off sedatives, opening eyes and focusing (Kathe Murphy) Plan Plan Remarks cont serial neuro checks and f/u neuro exam cont mgt per trauma and critical care Dr. 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 I ordered a follow up EEG. Continue Dialysis, still in critical condition. His pulmonary condition has deteriorated Pulmonary. Continue full mechanical ventilation in Assist control mode of ventilation aggressive pulmonary toilette, nasotracheal suction, and breathing treatments with nebulizers. Daily PT and OT Renal. monitor closely urine output, BUN and creatinine Endocrine.Monitor serial Acu checks and SSI as needed in detail ID monitor for signs of infection Protonix for stress ulcer prophylaxis Gilbert hose and SCD's for DVT prophylaxis Further recommendations will be provided depending on the patient's clinical evaluation and follow up studies The exam, history, and the medical decision-making described in the above note were completed with the assistance of the mid-level provider. I reviewed and agree with the findings presented. I attest that I had a [id number] encounter with the patient on the same day, and personally performed and documented my assessment and findings in the medical record. Discussed with his family at bedside (Les Horne MD) Kathe Murphy Aug 09, 2017 15:55 Les Horne MD Aug 10, 2017 14:08
--- NOTE | 2017-08-09 17:26 | MG ---
cc: Herbie Gaston MD, Mandeep MD EEG NUMBER #[id number] INDICATIONS: An 82-year-old, history of mental status changes. INTERPRETATION: There was 4-6 Hz activity with admixed left delta activity occurring 20-40 microvolts. Some myogenic artifact noted in the frontal channels. Single lead EKG showing some irregularity at times. IMPRESSION: Mild at times moderate encephalopathy. Overall, good electroencephalogram variability reactivity. No epileptic activity. Cardiac arrhythmia noted. Clinical correlation. MD ELIZABETH Armijo//rh , 04:59 PM , 05:15 PM
[2017-08-09] MEDS: HEPARIN SODIUM - SQ 10,000 UNITS/ML VIAL SQ SCH (22:15)
[2017-08-10] VITALS (19 sets, daily range): BP systolic 114–151; BP diastolic 54–67; PULSE 69–98; RESP 14–20; TEMP 98.7–99.2; O2SAT 95–100
--- NOTE | 2017-08-10 00:20 | PD.CARD.PN ---
Subjective Subjective Remarks Patient was seen earlier on 08/09, late entry Heart rates and blood pressure somewhat controlled Off sedation Eyes open, moves extremities, not purposeful Objective Medications Current Medications Medications (Trade) Dose Ordered Sig/Juliet Route Start Time Stop Time Status Last Admin (NS Flush) 2 ml UNSCH PRN IV FLUSH 07/30/17 12:45 08/09/17 07:48 (Zofran Inj) 4 mg Q6H PRN IV PUSH 07/30/17 12:45 08/06/17 18:19 Miscellaneous Information 1 Q361D XX 07/30/17 12:45 (Chlorhexidine 2% Cloth) Taper DAILY@04 TOP 07/31/17 04:00 07/27/18 03:59 08/05/17 03:26 (Chlorhexidine 2% Cloth) 3 pack UNSCH PRN TOP 07/30/17 12:45 (Peridex 0.12% Liq) 15 ml BID@08,20 MT 07/30/17 20:00 08/09/17 22:40 (Pepcid) 10 mg BID PO 07/30/17 21:00 08/09/17 22:40 (Pravachol) 40 mg DAILY PO 07/31/17 09:00 08/09/17 07:47 (D50w (Vial) Inj) 50 ml UNSCH PRN IV PUSH 07/31/17 07:45 (Glucagon Inj) 1 mg UNSCH PRN OTHER 07/31/17 07:45 (Jackelyn-Colace) 1 tab BID PO 08/01/17 21:00 08/09/17 22:16 (Dulcolax Supp) 10 mg DAILY PRN RECTAL 08/01/17 16:15 (NovoLOG SUPPLEMENTAL SCALE) 1 Q6HR SQ 08/01/17 18:00 08/09/17 11:39 (Apresoline Inj) 10 mg Q4HR PRN IV PUSH 08/04/17 12:30 08/09/17 08:54 (Lasix Inj) 80 mg Q8HR IV PUSH 08/04/17 22:00 08/09/17 22:15 (Milk Of Magnesia Liq) 30 ml BID PO 08/05/17 09:00 08/06/17 07:56 (Reglan Inj) 5 mg Q8HR IV PUSH 08/05/17 14:00 08/09/17 22:16 (Heparin Inj) 5,000 units Q8HR SQ 08/05/17 14:00 Future hold 08/09/17 22:15 Sodium Chloride 1,000 ml @ 0 mls/hr Q0M PRN OTHER 08/05/17 13:51 Sodium Chloride 1,000 ml @ 200 mls/hr Q5H PRN IV 08/05/17 13:51 08/06/17 13:21 Sodium Chloride 1,000 ml @ 0 mls/hr Q0M PRN OTHER 08/05/17 13:51 Albumin Human 100 ml @ 60 mls/hr UNSCH PRN IV 08/05/17 14:00 08/09/17 14:07 (NS Flush) 5 ml UNSCH PRN IV FLUSH 08/05/17 14:00 (Heparin Inj) UNSCH PRN .XX 08/05/17 14:00 08/09/17 14:07 (Gentamicin Inj) 20 mg UNSCH PRN OTHER 08/05/17 14:00 08/09/17 14:06 (Zofran Inj) 4 mg UNSCH PRN IV PUSH 08/05/17 14:00 (Tylenol) 650 mg UNSCH PRN PO 08/05/17 14:00 (Benadryl) 25 mg UNSCH PRN PO 08/05/17 14:00 (Nitrostat Sl) 0.4 mg UNSCH PRN SL 08/05/17 14:00 (Catapres) 0.1 mg UNSCH PRN PO 08/05/17 14:00 08/08/17 01:57 (Gelfoam 12 Mm/7 Mm Top) 1 foam UNSCH PRN TOP 08/05/17 14:00 Nicardipine HCl 50 mg/Sodium Chloride 500 ml @ 50 mls/hr TITRATE PRN IV 08/06/17 00:15 08/09/17 18:14 (Albuterol Neb) 2.5 mg Q2HR NEB PRN NEB 08/06/17 09:45 (Norvasc) 10 mg DAILY PO 08/07/17 09:00 08/09/17 07:47 (Apresoline) 100 mg Q8HR PO 08/06/17 14:00 08/09/17 22:16 (Lactulose Liq) 30 ml QID PO 08/06/17 13:00 08/09/17 22:15 (Miralax) 17 gm BID NG 08/06/17 21:00 08/09/17 07:47 (Zyloprim) 100 mg DAILY PO 08/07/17 09:00 08/09/17 07:47 (Hytrin) 7 mg BID NG 08/06/17 13:30 08/09/17 22:15 (Lopressor Inj) 2.5 mg Q6H PRN IV PUSH 08/07/17 07:45 08/08/17 08:35 (Coreg) 12.5 mg Q12HR PO 08/08/17 09:00 08/09/17 22:16 (Diuril) 500 mg Q12H G-TUBE 08/09/17 03:15 08/09/17 14:36 (Cardizem) 90 mg Q6HR PO 08/09/17 12:00 08/09/17 18:00 (Duoneb Neb) 1 ampule Q6HR NEB NEB 08/09/17 16:00 08/09/17 19:33 (Catapres) 0.3 mg Q8HR PO 08/09/17 14:00 08/09/17 22:16 Miscellaneous Information 2 Q7D T-DERMAL 08/12/17 11:00 (Catapres-Tts 0.3 Mg Patch.7d) 2 patch Q7D T-DERMAL 08/09/17 12:00 08/09/17 11:13 Pharmacy Profile Note 0 ml @ 0 mls/hr UNSCH OTHER 08/09/17 10:30 Cefepime HCl 1000 mg/Sodium Chloride 100 ml @ 200 mls/hr Q24H IV 08/10/17 09:00 Vital Signs / I&O Vital Signs Date Time Temp Pulse Resp B/P (MAP) Pulse Ox O2 Delivery O2 Flow Rate FiO2 08/09/17 19:34 100 90 08/09/17 18:14 96 149/63 08/09/17 18:00 98 08/09/17 17:04 95 100 08/09/17 16:00 100.0 88 26 117/56 (76) 97 08/09/17 16:00 88 08/09/17 16:00 100 08/09/17 14:00 84 08/09/17 12:43 92 40 08/09/17 12:00 99.8 83 31 127/60 (82) 94 08/09/17 12:00 40 08/09/17 12:00 83 08/09/17 10:00 93 08/09/17 08:58 94 40 08/09/17 08:03 86 165/60 08/09/17 08:02 101 165/60 08/09/17 08:00 50 08/09/17 08:00 112 08/09/17 08:00 100.6 99 26 165/60 (95) 95 08/09/17 06:00 117 08/09/17 04:53 94 40 08/09/17 04:03 114 155/66 08/09/17 04:00 99.8 106 16 155/66 (95) 95 08/09/17 04:00 113 08/09/17 04:00 50 08/09/17 03:27 115 141/63 08/09/17 02:00 105 08/09/17 00:49 94 40 I/O 08/09/17 08/09/17 08/09/17 08/10/17 08/10/17 08/10/17 06:59 14:59 22:59 06:59 14:59 22:59 Intake Total 2354 ml 1075 ml 1187 ml Output Total 280 ml 4350 ml Balance 2074 ml 1075 ml -3163 ml IV Total 2354 ml 1075 ml 1100 ml Tube Feeding 87 ml Output Urine Total 80 ml 100 ml Stool Total 100 ml 200 ml Gastric Drainage Total 100 ml 50 ml Hemodialysis 4000 ml Physical Exam GENERAL: Intubated and sedated SKIN: Warm and dry. HEAD: Atraumatic. Normocephalic. EYES: Pupils equal and round. No scleral icterus. No injection or drainage. ENT: No nasal bleeding or discharge. Mucous membranes pink and moist. NECK: Trachea midline. No JVD. CARDIOVASCULAR: Regular rate and rhythm. RESPIRATORY: No accessory muscle use. Clear to auscultation. Breath sounds equal bilaterally. GASTROINTESTINAL: Abdomen soft, non-tender, nondistended. Hepatic and splenic margins not palpable. MUSCULOSKELETAL: Extremities without clubbing, cyanosis, or edema. No obvious deformities. NEUROLOGICAL: Unable to determine. ICP monitor in place, pressures 4-13 Laboratory Laboratory Tests Test 08/09/17 05:00 White Blood Count 18.9 TH/MM3 Red Blood Count 2.88 MIL/MM3 Hemoglobin 8.3 GM/DL Hematocrit 24.7 % Mean Corpuscular Volume 85.6 FL Mean Corpuscular Hemoglobin 28.9 PG Mean Corpuscular Hemoglobin Concent 33.8 % Red Cell Distribution Width 23.8 % Platelet Count 112 TH/MM3 Mean Platelet Volume 10.1 FL Neutrophils (%) (Auto) 88.9 % Lymphocytes (%) (Auto) 2.7 % Monocytes (%) (Auto) 7.7 % Eosinophils (%) (Auto) 0.5 % Basophils (%) (Auto) 0.2 % Neutrophils # (Auto) 16.8 TH/MM3 Lymphocytes # (Auto) 0.5 TH/MM3 Monocytes # (Auto) 1.4 TH/MM3 Eosinophils # (Auto) 0.1 TH/MM3 Basophils # (Auto) 0.0 TH/MM3 CBC Comment DIFF FINAL Differential Comment Blood Urea Nitrogen 30 MG/DL Creatinine 3.00 MG/DL Random Glucose 185 MG/DL Calcium Level 8.6 MG/DL Sodium Level 141 MEQ/L Potassium Level 2.8 MEQ/L Chloride Level 101 MEQ/L Carbon Dioxide Level 19.8 MEQ/L Anion Gap 20 MEQ/L Estimat Glomerular Filtration Rate 20 ML/MIN Assessment and Plan Problem List: (1) Major neurocognitive disorder as late effect of traumatic brain injury without behavioral disturbance ICD Codes: S06.9X9S - Unspecified intracranial injury with loss of consciousness of unspecified duration, sequela; F02.80 - Dementia in other diseases classified elsewhere without behavioral disturbance Status: Acute (2) Intracranial bleed ICD Codes: I62.9 - Nontraumatic intracranial hemorrhage, unspecified Status: Acute (3) Edema due to congestive heart failure ICD Codes: I50.9 - Heart failure, unspecified Status: Chronic (4) Hypertensive emergency ICD Codes: I16.1 - Hypertensive emergency Status: Acute (5) CKD (chronic kidney disease) stage 3, GFR 30-59 ml/min ICD Codes: N18.3 - Chronic kidney disease, stage 3 (moderate) Status: Chronic (6) Acute kidney insufficiency ICD Codes: N28.9 - Disorder of kidney and ureter, unspecified Status: Chronic Assessment and Plan 1) Mechanical fall leading in subdural/subarachnoid hemorrhage 2) Benign PVCs Normal function on echo Electrolytes normal range 3) ASA/Plavix stopped for ICH 4) Blood pressure elevated Currently on Cardene drip Hydralazine PRN Hytrin increased by Nephrology 5) Worsening renal function, started on HD 6) Afib with RVR Cardizem/Coreg Not an anti-coagulation candidate 7) ?NSVT Agree with Coreg Aman Lind DO Aug 10, 2017 00:20
[2017-08-10] MEDS: DILTIAZEM HCL 90 MG TAB PO SCH ×5 (00:46→23:36)
[2017-08-10] MEDS: RESP: ALBUTEROL 2.5 MG/IPRATROPIUM 0.5 MG NEB (SCH) NEB ×4 (03:28→20:23)
[2017-08-10] MEDS: CHLORHEXIDINE GLUCONATE 2 % 1 PACK (2 CLOTHS) TOP SCH (04:00)
[2017-08-10] MEDS: CHLOROTHIAZIDE 500 MG G-TUBE SCH ×2 (04:13→13:45)
[2017-08-10] MEDS: HEPARIN SODIUM - SQ 10,000 UNITS/ML VIAL SQ SCH ×3 (05:44→21:26)
[2017-08-10] MEDS: hydrALAZINE HCL 100 MG TAB PO SCH ×3 (05:44→21:26)
[2017-08-10] MEDS: METOCLOPRAMIDE HCL 10 MG/2 ML VIAL IV PUSH SCH ×3 (05:44→21:27)
[2017-08-10] MEDS: FUROSEMIDE 100 MG/10 ML VIAL IV PUSH SCH ×2 (05:44→13:44)
[2017-08-10] MEDS: cloNIDine HCL 0.3 MG TAB PO SCH ×3 (05:44→20:30)
[2017-08-10 06:06] LABS: AUTOMATED NEUTROPHIL # 12.7 TH/MM3 (1.8-7.7); BASOPHIL % 0.1 % (0.0-2.0); EOSINOPHIL % 0.1 % (0.0-4.0); HEMATOCRIT 21.4 % (39.0-51.0); HEMOGLOBIN 7.1 GM/DL (13.0-17.0); LYMPH % 2.7 % (9.0-44.0); LYMPHOCYTE # 0.4 TH/MM3 (1.0-4.8); MEAN CELL VOLUME 86.5 FL (80.0-100.0); MEAN CORPUSCULAR HEMOGLOBIN 28.5 PG (27.0-34.0); MEAN CORPUSCULAR HGB CONC 32.9 % (32.0-36.0); MEAN PLATELET VOLUME 9.5 FL (7.0-11.0); MONO % 9.4 % (0.0-8.0); MONOCYTE # 1.4 TH/MM3 (0-0.9); NEUT % 87.7 % (16.0-70.0); PLATELET COUNT 98 TH/MM3 (150-450); RED BLOOD COUNT 2.48 MIL/MM3 (4.50-5.90); RED CELL DISTRIBUTION WIDTH 23.4 % (11.6-17.2); WHITE BLOOD COUNT 14.5 TH/MM3 (4.0-11.0)
[2017-08-10 07:02] LABS: BICARBONATE 25.6 MEQ/L (21.0-32.0); CREATININE 3.15 MG/DL (0.60-1.30)
[2017-08-10] MEDS: INSULIN ASPART SUPPLEMENTAL SCALE SQ SCH ×5 (07:18→23:37)
[2017-08-10 08:18] LABS: OVALOCYTES 1+ (NORMAL)
[2017-08-10 08:19] LABS: ACANTHOCYTES OCC (NORMAL); KERATOCYTES OCC (NORMAL)
--- NOTE | 2017-08-10 08:42 | HHI.CCPN ---
Subjective Remarks/Hospital Course 82 y/o man fell from height and sustained closed head trauma including left subdural hematoma and bilateral temporal parenchymal bleeds in areas of contusion. Admission CXR is impressive for pulmonary venous congestion. Home meds are not known at this time. 07/31: Enlarging left subdural hemorrhage and enlarging parenchymal contusions/ bleeds undoubtedly exacerbated by Plavix and aspirin use. CXR demonstrates bilateral effusions but improved pulmonary venous congestion after diuretic yesterday. Unfortunately a worsening azotemia has developed indicating he may not tolerate diuresis well. Follow renal function closely. I would have predicted chronic systolic heart failure after observing his effusions and ankles but his cardiac ECHO reveals reasonable biventricular function, probably EF > 50%. This may all be primary renal disease considering his reduced GFR and chronic anemia. 08/01: Remains sedated, orally intubated on mechanical ventilation 08/05: Remains sedated, orally intubated on mechanical ventilation. Renal function continued to decline of the last few days. Family wishes to proceed with hemodialysis after discussion with trauma team and nephrology. Subjective 08/06: Afebrile. Bradycardic. No acute cardiovascular incidents overnight. Continues on nicardipine drip at 7.5 mg an hour. Hemodialysis yesterday -3 L 08/07: Hypoxemic increasing oxygen requirement. Currently on 60% FiO2 10 of PEEP. Also developed atrial fibrillation with RVR, currently on Cardizem infusion at 15 mg/h with heart rate in 130s, Cardene infusion at 15 mg/h to control blood pressure. Additional 50 mg IV push of Cardizem ordered. Chest x- ray with bilateral basilar infiltrates left more than right. Increased yellow ET tube secretions. Start cefepime 1 gm IV q12 and vancomycin 1 gm IV x1 08/08: Remains intubated heavily sedated for ventilator synchrony. Antibiotics started yesterday for dense basilar consolidation bilaterally, WBC count slightly improved today. Intermittent episodes of nonsustained V. tach. Start scheduled Coreg 12.5 twice daily. Check magnesium level replace potassium. Hemodialysis yesterday with 3.5 L removed. Urine output approximately 500 mL in 24 hours 08/09: Remains critical. Maximized on Cardene infusion for blood pressure control. Heart rate is controlled with Cardizem drip start Cardizem 90 mg p.o. every 6 hours and wean to DC Cardizem infusion. Fever 100.6 with leukocytosis now 18.9. Repeat panculture. Off sedation for 24 hours now, has spontaneous eye opening and moves extremities spontaneously 08/10: Bilateral lower lobe infiltrates, cultures pending. ABX infusing. Lung volumes small. Objective Vital Signs Date Time Temp Pulse Resp B/P (MAP) Pulse Ox O2 Delivery O2 Flow Rate FiO2 08/10/17 06:00 75 08/10/17 05:39 97 70 08/10/17 04:00 98.7 20 134/67 (89) Intake and Output 08/10/17 08/10/17 08/11/17 08:00 16:00 00:00 Intake Total 3044 ml Output Total 60 ml Balance 2984 ml Result Diagram: 08/10/17 0555 08/10/17 0555 Imaging Last Impressions Chest X-Ray 08/06/17 0600 Signed Impressions: Service Date/Time: Sunday, August 06, 2017 02:56 - CONCLUSION: 1. Slightly improved bibasilar consolidation and small effusions. 2. No change mild cardiomegaly. Ra Ballard MD Head CT 08/04/17 0000 Signed Impressions: Service Date/Time: July 04:37 - CONCLUSION: 1. Stable intracranial findings including bilateral subdural hematomas, intraventricular blood products, and bilateral temporal lobe hemorrhagic contusions. There is no midline shift or herniation. Ventricles are stable in size. 2. There is new fluid in the mastoid air cells and small air fluid levels bilaterally in the maxillary antra. These changes may be related to intubation. Ra Pulliam MD Lower Extremity Ultrasound 08/02/17 0000 Signed Impressions: Service Date/Time: Wednesday, August 02, 2017 10:40 - CONCLUSION: No evidence of DVT. Danyel Bear MD Renal Ultrasound 08/01/17 0000 Signed Impressions: Service Date/Time: Tuesday, August 01, 2017 14:46 - CONCLUSION: There is no hydronephrosis or stone. Bilateral pleural effusions.. Angel Brown MD FACR Shoulder X-Ray 07/31/17 0000 Signed Impressions: Service Date/Time: Monday, July 31, 2017 14:25 - CONCLUSION: No obvious fracture or dislocation. Degenerative changes. Prasanna Milan MD Cervical Spine CT 07/30/17 1202 Signed Impressions: Service Date/Time: Sunday, July 30, 2017 12:17 - CONCLUSION: 1. Negative for fracture. 2. Degenerative changes consisting of uncinate ridging with neural foramen encroachment without radiographically significant spinal stenosis. 3. Bilateral moderate sized pleural effusions seen on the lower slices through the upper lungs lungs. Angel Brown MD FACR Objective Remarks GENERAL: 82-year-old male currently orotracheally intubated. SKIN: Warm/dry. HEAD: Atraumatic. Normocephalic. EYES: Pupils equal right pupil 2 mm, left pupil 2 mm reactive to light. Subconjunctival hemorrhage on the right side, resolving.. ENT: No nasal bleeding or discharge. Orotracheally intubated. NECK: Trachea midline. No JVD. Right IJ hemodialysis catheter is clean dry and intact. CARDIOVASCULAR: Atrial fibrillation on monitor. S1, S2. Distant. RESPIRATORY: Breath sounds equal bilaterally, with coarse rhonchi, diminished sounds at the bases. GASTROINTESTINAL: Abdomen protuberant. Active bowel sounds, no guarding. : Dockery catheter in place with bloody. Positive scrotal edema MUSCULOSKELETAL: No obvious deformities. Possible lipodermatosclerosis bilateral lower extremities. Well perfused. NEUROLOGICAL: Off sedation for 24 hours, spontaneous eye opening moving extremities spontaneously does not follow commands. Side: Right Location: Internal, Jugular (Vas cath) A/P Assessment and Plan Neuro/Psych: TBI Bilateral subdural hematomas, intraventricular blood products, and bilateral temporal lobe hemorrhagic contusions Acute encephalopathy Currently off all continuos sedation. Spontaneously opening eyes and moving extremities, there is slight improvement in neuro exam CT brain admission revealed bilateral subdural hematomas, intraventricular hemorrhage in bilateral temporal contusions. Followed by neurosurgery/Dr. Horne. Status post removal of ICP 08/05 Levetiracetam 500 mg by tube twice daily seizure prophylaxis Acetaminophen 650 mg p.o. every 6 hours as needed fever Currently holding primidone 50 mg twice daily for essential tremor CV: Atrial fibrillation with RVR Nonsustained V. tach Uncontrolled hypertension Chronic diastolic heart failure Mild pulmonary hypertension PVD -stent LAD status post femoropopliteal Currently on nicardipine drip at 15 mg an hour to maintain systolic blood pressure less than 150 Cardizem drip -will wean to DC after starting Cardizem 90 mg every 6 hours Continue hydralazine 100 mg every 8 hours, amlodipine 10 mg daily, metoprolol 5 mg IV every 6 hours and terazosin 10 mg daily Scheduled p.o. Coreg 12.5 twice daily. Currently on clonidine patch. Will increase to 0.6 mg patch, add clonidine po 0.3 mg q8. Continue hydralazine 100 mg every 8 Continue pravastatin 40 mg daily for dyslipidemia. On simvastatin 20 mg daily home. Holding aspirin 325 daily and clopidogrel 75 daily in light of brain hemorrhage as above, cannot fully anticoagulate for a fib 2D echo revealed LVEF low normal with an estimated ejection fraction in the range of 50- 55%. Mild pulmonary. hypertension 40 mmHg Currently on furosemide 80 mg IV every 6 hours and Diuril 500 mg IV every 12 hours. Hold while on hemodialysis-defer to nephrology (Home medications include terazosin 10 mg daily, Toprol 50 mg twice daily, losartan 25 mg p.o. daily, Aldactone 25 mg daily, Lasix 80 mg twice daily) Resp: Acute hypoxemic respiratory failure Healthcare associated pneumonia [facility] /06/06/39. Start CPAP trials Ventilator bundle. Albuterol/ipratropium aerosols every 6 hours with albuterol aerosols every 2 hours as needed for dyspnea Continue broad-spectrum antibiotics with cefepime 1 g every 12, vancomycin 1 dose given 08/07 CT of the chest to evaluate effusion/infiltrate-shows bibasilar dense consolidation Probably will need increased mean airway pressure. GI: Hypoalbuminemia Constipation Gastroesophageal reflux disease Currently on Glucerna 1.5 and 35 cc an hour/recommendations per pharmacy Currently in famotidine for GI prophylaxis. On omeprazole 20 mg daily at home. Continue bowel regimen KUB showed normal bowel gas pattern : BPH Holding finasteride 5 mg daily and terazosin 10 mg daily. Resume clinically indicated The Dockery catheter has been placed for accurate I's and O's in a critically ill patient with significant scrotal edema Endo: Gout Diabetes mellitus Sliding scale insulin with aspart insulin to maintain euglycemia Home medications include glipizide 5 mg twice daily on hold Allopurinol 100 mg daily Renal: Acute kidney failure HD per Dr. Chavez. Potassium replacement orders given Heme: Normocytic anemia Thrombocytopenia Monitor CBC daily. Follow trends On iron sulfate 160 mg daily at home ID: Severe sepsis Healthcare associated pneumonia UTI with staph aureus -Now with fever and worsening leukocytosis. Repeat sputum blood and urine cultures -Started on cefepime and single dose of vancomycin 08/07.Give 1 gm of vanc and pharmacy to dose - Lung infiltrates persist FEN: Hypernatremia Replace electrolytes as clinically indicated Access: -Right IJ hemodialysis catheter placed 08/05, left subclavian central line placement, 08/07/2017 Prophylaxis -GI -famotidine -DVT -SCD/heparin subcu Overall impression: Remains critically ill with TBI, hypoxemic respiratory failure, healthcare associated pneumonia, uncontrolled hypertension. Now with worsening sepsis fever. Neuro exam though is slightly improved but overall prognosis remains guarded at best. Critical care 44 mins Serge Marcano MD Aug 10, 2017 08:42
[2017-08-10] MEDS: CHLORHEXIDINE 0.12% (ORAL KIT) 15 ML CUP MT SCH ×2 (08:46→20:32)
[2017-08-10] MEDS: CARVEDILOL 12.5 MG TAB PO SCH ×2 (08:47→20:31)
[2017-08-10] MEDS: CEFEPIME INJ 1,000 MG in SODIUM CHLORIDE 0.9% INJ 100 ML IV SCH (08:47)
[2017-08-10] MEDS: POLYETHYLENE GLYCOL 17 GM PKG NG SCH ×2 (08:47→20:33)
[2017-08-10] MEDS: PRAVASTATIN SOD 40 MG TAB PO SCH (08:47)
[2017-08-10] MEDS: MAGNESIUM HYDROXIDE SUSP 30 ML CUP PO SCH ×2 (08:47→20:32)
[2017-08-10] MEDS: LACTULOSE SYRUP 20 GM/30 ML CUP PO SCH ×4 (08:47→20:33)
[2017-08-10] MEDS: ALLOPURINOL 100 MG TAB PO SCH (08:47)
[2017-08-10] MEDS: FAMOTIDINE 20 MG TAB PO SCH ×2 (08:47→20:31)
[2017-08-10] MEDS: DOCUSATE SODIUM 50 MG/SENNA 8.6 MG TAB PO SCH ×2 (08:48→20:33)
[2017-08-10] MEDS: ALBUMIN 25% INJ 100 ML IV PRN (09:14)
[2017-08-10] MEDS: GENTAMICIN SULFATE 20 MG/2 ML VIAL OTHER PRN (09:14)
[2017-08-10] MEDS: HEPARIN SODIUM - IV 10,000 UNITS/10 ML VIAL PRN (09:14)
[2017-08-10] MEDS: TERAZOSIN HCL 1 MG CAP NG SCH ×2 (09:14→20:31)
--- NOTE | 2017-08-10 10:05 | HHI.HCPN ---
Reason for visit a. To assist with evaluation and management of symptoms including: pain, dyspnea, encephalopathy b. To assist medical decision maker(s) with: better understanding of current medical conditions; weighing benefits/burdens of medical treatment options; making medical treatment decisions. . Subjective/Interval History Since seen today for follow-up on comfort, goals. Notified by nursing prior to my arrival to unit at family called to request meeting today with providers to discuss treatment options and goals. Patient remains on mechanical vent. Sedation has been off. Was on Cardene overnight though this has been weaned off. Continues to receive daily dialysis. Repeat cultures pending from 08/09. MAXIMUM TEMPERATURE 100.0 . WBC downtrending 14.5 today, 18.9 yesterday. No new imaging. Requiring 70% FiO2 on mechanical vent. EEG completed yesterday indicative mild to moderate encephalopathy. Nursing indicates no following of commands, withdraws lower extremities questionable withdraw upper extremities. Patient examined in room as hemodialysis ongoing, commodity broker at bedside. Minimally responsive to my exam. Call to daughter Danielle, she indicates that family would like to meet with providers today to further discuss treatment options and decisions going forward. She is not sure if the will be able to attend as she is not fully able to process information. Plan to meet with them around 11 AM today, trauma M.D. to participate as well. Copies of written advanced directives, designation of healthcare surrogate form , have not yet been provided by the family. Per [place] statutes, in the absence of written advanced directives healthcare proxy decision making falls to the patient's . If she is unable to fulfill this role, then healthcare proxy decision making. The majority of the patient's 4 adult children.(Prior interactions with have noted that she appears to have cognitive impairments and may not be able to fully participate in decision-making) . . Family/friend interactions Met with family at length upon their arrival, 4 adult children. remained at bedside, children indicating that she is having difficulty processing information and she forgets it and it is very distressful to her secondary to dementia they wish to continue talking with her on their own. Discussion included the following: --Review of patient hospital course thus far --Review of current conditions, treatments in place, possible additional treatments including tracheostomy and PEG tube, prognosis and probable trajectories going forward, including review of potential complications/ setbacks the patient may face if he does survive current acute issues --Review of alternative of comfort measure only and removal of artificial apparatus if patient would not want further invasive measures; did not fully explore withdrawal /transition process Family tearful at times. All questions answered. They indicate they will NOT proceed with trach and PEG, however they wish to continue to support patient and allow her to be a part of the decision making process despite her dementia. They indicate that patient would not want prolonged artificial measures without a chance of significant recovery of function and cognitive status. They're going to continue talking with and visiting patient with her throughout this week they indicate after Tuesday they will likely transition to comfort focus and withdrawal though exact dates has not been determined yet. Additionally, they want other family to be able to travel this week to see pt before probable withdrawal. Offer additional meeting with them to provide anticipatory guidance of actual withdrawal process. Advance Directives Advance Directive Specifics Documented care wishes: Patient reportedly has completed written advanced directives. Son, Darryn, will bring copies of documentation to the hospital tomorrow 08/04/2017 so that copies can be placed in the patient's chart and scanned into the EMR. . Objective Vital Signs Date Time Temp Pulse Resp B/P (MAP) Pulse Ox O2 Delivery O2 Flow Rate FiO2 08/10/17 08:44 98 70 08/10/17 08:00 77 08/10/17 08:00 70 08/10/17 06:00 75 08/10/17 05:39 97 70 08/10/17 04:00 100 08/10/17 04:00 98.7 87 20 134/67 (89) 95 08/10/17 04:00 78 08/10/17 02:00 98 08/10/17 01:14 100 80 08/10/17 00:00 100 08/10/17 00:00 98.9 82 19 151/57 (88) 97 08/10/17 00:00 98 08/09/17 22:00 98 08/09/17 20:00 100 08/09/17 20:00 98 08/09/17 20:00 99.1 82 17 153/65 (94) 95 08/09/17 19:34 100 90 08/09/17 18:14 96 149/63 08/09/17 18:00 98 08/09/17 17:04 95 100 08/09/17 16:00 100.0 88 26 117/56 (76) 97 08/09/17 16:00 88 08/09/17 16:00 100 08/09/17 14:00 84 08/09/17 12:43 92 40 08/09/17 12:00 99.8 83 31 127/60 (82) 94 08/09/17 12:00 40 08/09/17 12:00 83 Intake & Output 08/10/17 08/10/17 07:00 19:00 Intake Total 3044 ml 100 ml Output Total 60 ml Balance 2984 ml 100 ml IV Total 3044 ml 100 ml Output Urine Total 60 ml Physical Exam CONSTITUTIONAL/GENERAL: This is an adequately nourished elderly, male patient intubated on mechanical ventilation TUBES/LINES/DRAINS: PIV 3, central and left subclavian, hemodialysis catheter right IJ ,Dockery catheter, ETT, OGT SKIN: No jaundice, rashes, or lesions. Skin warm/dry HEAD: Atraumatic. Normocephalic. EYES: Pupils left greater than right 3 mm left, 2 mm right, questionable reaction to light. No scleral icterus. No injection or drainage. Fundi not examined. CARDIOVASCULAR: Irregularly irregular without murmur. Peripheral pulses symmetric-faint. 3+Generalized edema, especially to lower extremities RESPIRATORY/CHEST: Intubated on mechanical ventilation. Increased upper airway secretions GASTROINTESTINAL: Abdomen soft, round, no apparent tenderness, nondistended. Bowel sounds normoactive. Tube feed infusing via OG. GENITOURINARY: Without palpable bladder distension. Dockery catheter in place with minimal urine output-dark brown in color NEUROLOGICAL: Minimally responsive during exam. Slight eye opening to pain stimuli to lower extremities. His withdrawals feet to pain/light touch does not follow commands. No withdrawal to upper extremity pain stimuli. Does not keep eyes open, no tracking of examiner. PSYCHIATRIC: Unable to assess given clinical condition. . Diagnostic Tests Laboratory Laboratory Tests Test 08/07/17 15:38 08/07/17 23:05 08/08/17 05:00 08/09/17 05:00 Total Creatine Kinase 164 U/L (39-308) Potassium Level 3.3 MEQ/L (3.5-5.1) 3.2 MEQ/L (3.5-5.1) 2.8 MEQ/L (3.5-5.1) White Blood Count 12.3 TH/MM3 (4.0-11.0) 18.9 TH/MM3 (4.0-11.0) Red Blood Count 2.66 MIL/MM3 (4.50-5.90) 2.88 MIL/MM3 (4.50-5.90) Hemoglobin 7.7 GM/DL (13.0-17.0) 8.3 GM/DL (13.0-17.0) Hematocrit 22.9 % (39.0-51.0) 24.7 % (39.0-51.0) Mean Corpuscular Volume 86.0 FL (80.0-100.0) 85.6 FL (80.0-100.0) Mean Corpuscular Hemoglobin 29.0 PG (27.0-34.0) 28.9 PG (27.0-34.0) Mean Corpuscular Hemoglobin Concent 33.8 % (32.0-36.0) 33.8 % (32.0-36.0) Red Cell Distribution Width 23.9 % (11.6-17.2) 23.8 % (11.6-17.2) Platelet Count 79 TH/MM3 (150-450) 112 TH/MM3 (150-450) Mean Platelet Volume 10.2 FL (7.0-11.0) 10.1 FL (7.0-11.0) Neutrophils (%) (Auto) 84.9 % (16.0-70.0) 88.9 % (16.0-70.0) Lymphocytes (%) (Auto) 4.7 % (9.0-44.0) 2.7 % (9.0-44.0) Monocytes (%) (Auto) 9.2 % (0.0-8.0) 7.7 % (0.0-8.0) Eosinophils (%) (Auto) 0.9 % (0.0-4.0) 0.5 % (0.0-4.0) Basophils (%) (Auto) 0.3 % (0.0-2.0) 0.2 % (0.0-2.0) Neutrophils # (Auto) 10.4 TH/MM3 (1.8-7.7) 16.8 TH/MM3 (1.8-7.7) Lymphocytes # (Auto) 0.6 TH/MM3 (1.0-4.8) 0.5 TH/MM3 (1.0-4.8) Monocytes # (Auto) 1.1 TH/MM3 (0-0.9) 1.4 TH/MM3 (0-0.9) Eosinophils # (Auto) 0.1 TH/MM3 (0-0.4) 0.1 TH/MM3 (0-0.4) Basophils # (Auto) 0.0 TH/MM3 (0-0.2) 0.0 TH/MM3 (0-0.2) CBC Comment AUTO DIFF DIFF FINAL Differential Comment AUTO DIFF CONFIRMED Tear Drop Cells 1+ (NORMAL) Ovalocytes 1+ (NORMAL) Blood Urea Nitrogen 45 MG/DL (7-18) 30 MG/DL (7-18) Creatinine 3.16 MG/DL (0.60-1.30) 3.00 MG/DL (0.60-1.30) Random Glucose 143 MG/DL (74-106) 185 MG/DL (74-106) Calcium Level 8.6 MG/DL (8.5-10.1) 8.6 MG/DL (8.5-10.1) Sodium Level 142 MEQ/L (136-145) 141 MEQ/L (136-145) Chloride Level 103 MEQ/L (98-107) 101 MEQ/L (98-107) Carbon Dioxide Level 23.3 MEQ/L (21.0-32.0) 19.8 MEQ/L (21.0-32.0) Anion Gap 16 MEQ/L (5-15) 20 MEQ/L (5-15) Estimat Glomerular Filtration Rate 19 ML/MIN (>89) 20 ML/MIN (>89) Test 08/10/17 05:55 White Blood Count 14.5 TH/MM3 (4.0-11.0) Red Blood Count 2.48 MIL/MM3 (4.50-5.90) Hemoglobin 7.1 GM/DL (13.0-17.0) Hematocrit 21.4 % (39.0-51.0) Mean Corpuscular Volume 86.5 FL (80.0-100.0) Mean Corpuscular Hemoglobin 28.5 PG (27.0-34.0) Mean Corpuscular Hemoglobin Concent 32.9 % (32.0-36.0) Red Cell Distribution Width 23.4 % (11.6-17.2) Platelet Count 98 TH/MM3 (150-450) Mean Platelet Volume 9.5 FL (7.0-11.0) Neutrophils (%) (Auto) 87.7 % (16.0-70.0) Lymphocytes (%) (Auto) 2.7 % (9.0-44.0) Monocytes (%) (Auto) 9.4 % (0.0-8.0) Eosinophils (%) (Auto) 0.1 % (0.0-4.0) Basophils (%) (Auto) 0.1 % (0.0-2.0) Neutrophils # (Auto) 12.7 TH/MM3 (1.8-7.7) Lymphocytes # (Auto) 0.4 TH/MM3 (1.0-4.8) Monocytes # (Auto) 1.4 TH/MM3 (0-0.9) Eosinophils # (Auto) 0.0 TH/MM3 (0-0.4) Basophils # (Auto) 0.0 TH/MM3 (0-0.2) CBC Comment AUTO DIFF Differential Comment AUTO DIFF CONFIRMED Platelet Estimate LOW (NORMAL) Platelet Morphology Comment NORMAL (NORMAL) Ovalocytes 1+ (NORMAL) Acanthocytes OCC (NORMAL) Keratocytes OCC (NORMAL) Blood Urea Nitrogen 43 MG/DL (7-18) Creatinine 3.15 MG/DL (0.60-1.30) Random Glucose 192 MG/DL (74-106) Calcium Level 8.0 MG/DL (8.5-10.1) Sodium Level 144 MEQ/L (136-145) Potassium Level 3.3 MEQ/L (3.5-5.1) Chloride Level 106 MEQ/L (98-107) Carbon Dioxide Level 25.6 MEQ/L (21.0-32.0) Anion Gap 12 MEQ/L (5-15) Estimat Glomerular Filtration Rate 19 ML/MIN (>89) Result Diagram: 08/10/17 0555 08/10/17 0555 Microbiology Microbiology Date/Time Source Procedure Growth Status 08/09/17 12:11 Blood Peripheral Aerobic Blood Culture Pending Received 08/09/17 12:11 Blood Peripheral Anaerobic Blood Culture Pending Received 08/09/17 12:06 Blood Peripheral Aerobic Blood Culture Pending Received 08/09/17 12:06 Blood Peripheral Anaerobic Blood Culture Pending Received 08/09/17 10:16 Sputum Expectorated Sputum Gram Stain - Final Resulted 08/09/17 10:16 Sputum Expectorated Sputum Sputum Culture Pending Resulted 08/09/17 10:16 Urine Catheterized Urine Urine Culture Pending Received Imaging Last Impressions Chest X-Ray 08/08/17 0600 Signed Impressions: Service Date/Time: Tuesday, August 08, 2017 04:59 - CONCLUSION: Unchanged bibasilar infiltrates. Pepe Segura Jr., MD Abdomen X-Ray 08/07/17 0600 Signed Impressions: Service Date/Time: Monday, August 07, 2017 05:16 - CONCLUSION: Benign- appearing abdomen. Nasogastric tube tip is in the upper stomach. Ra Ballard MD Chest CT 08/07/17 0000 Signed Impressions: Service Date/Time: Monday, August 07, 2017 08:36 - CONCLUSION: 1. Bilateral lower lobe consolidating airspace disease. 2. Small to moderate bilateral pleural effusions. 3. Cardiomegaly. Eliud Gar MD Head CT 08/04/17 0000 Signed Impressions: Service Date/Time: July 04:37 - CONCLUSION: 1. Stable intracranial findings including bilateral subdural hematomas, intraventricular blood products, and bilateral temporal lobe hemorrhagic contusions. There is no midline shift or herniation. Ventricles are stable in size. 2. There is new fluid in the mastoid air cells and small air fluid levels bilaterally in the maxillary antra. These changes may be related to intubation. Ra Pulliam MD Lower Extremity Ultrasound 08/02/17 0000 Signed Impressions: Service Date/Time: Wednesday, August 02, 2017 10:40 - CONCLUSION: No evidence of DVT. Danyel Bear MD Renal Ultrasound 08/01/17 0000 Signed Impressions: Service Date/Time: Tuesday, August 01, 2017 14:46 - CONCLUSION: There is no hydronephrosis or stone. Bilateral pleural effusions.. Angel Brown MD FACR Shoulder X-Ray 07/31/17 0000 Signed Impressions: Service Date/Time: Monday, July 31, 2017 14:25 - CONCLUSION: No obvious fracture or dislocation. Degenerative changes. Prasanna Milan MD Cervical Spine CT 07/30/17 1202 Signed Impressions: Service Date/Time: Sunday, July 30, 2017 12:17 - CONCLUSION: 1. Negative for fracture. 2. Degenerative changes consisting of uncinate ridging with neural foramen encroachment without radiographically significant spinal stenosis. 3. Bilateral moderate sized pleural effusions seen on the lower slices through the upper lungs lungs. Angel Brown MD FACR Procedures 07/30/2017: Intubation 07/30/2017: ICP monitor placed . Assessment and Plan Disease Oriented Problem List: (1) Congestive heart failure (2) Anemia (3) Acute kidney insufficiency (4) Respiratory failure (5) Hypertensive emergency (6) Intracranial bleed (7) Edema due to congestive heart failure (8) Major neurocognitive disorder as late effect of traumatic brain injury without behavioral disturbance Symptom Scale: (1) Pain (2) Encephalopathy (3) Dyspnea Pertinent Non-Medical Issues Psychosocial: Patient is originally from [place]. He dated his (Kristin ) in high school, and they have now been for approximately 62 years. 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 Together they have 4 adult children, 10 grandchildren and 5 great-grandchildren. Spiritual: Orthodox thanh Legal: Unclear. Per [place] statutes, in the absence of written advance directives healthcare proxy decision making would fall to the patient's . Patient also has 4 adult children. Danielle and Darryn who live locally have verbally indicated that Danielle is the healthcare surrogate decision maker. Awaiting copies of documentation which should be received tomorrow 08/03/17 Ethical issues impacting care: No known ethical issues impacting care. . Important Contacts Kristin Alonzo, : [phone] Danielle Adkins, daughter: [phone] Darryn Alonzo, son: [phone] . Prognosis Patient is an 82-year-old male who has suffered severe brain trauma which is complicated by multiple comorbid conditions. Prognosis is very poor, and the patient may not survive this hospitalization. . Code Status: Full Code Plan * FULL CODE * Decision making: Danielle and Darryn who live locally have verbally indicated that Danielle is the healthcare surrogate decision maker. However, copies of written advanced directives, designation of healthcare surrogate form, have not yet been provided by the family. Per [place] statutes, in the absence of written advanced directives healthcare proxy decision making falls to the patient's . If she is unable to fulfill this role, then healthcare proxy decision making. The majority of the patient's 4 adult children.(Prior interactions with have noted that she appears to have cognitive impairments and may not be able to fully participate in decision-making) * Met w family at length today 08/10/17. They indicate pt would NOT want trach/ PEG. They do NOT wish to proceed w trach/PEG. They will likely want to withdraw ventilator, transition to comfort after TUESDAY, additional family to visit pt during the week before probable withdrawal. will need follow up meeting to provide anticipatory guidance and review code status. They have questions regarding body donation, will provide them with information pamphlet. * Symptom management: = Encephalopathy: Patient remains encephalopathic status post subdural and subarachnoid hemorrhages. He has been off sedation for approximately 24 hours. Opens eyes and moves all extremities spontaneously; no purposeful movement observed. Patient does not arouse to verbal stimuli or follow commands. Follow-up CT brain on 08/04/17 revealed stable intracranial findings including bilateral subdural hematomas, intraventricular blood products and bilateral temporal lobe hemorrhagic contusions. No midline shift or herniation. Ventricle size stable. EEG= mild to moderate encephalopathy Critical care stating patient's prognosis is very poor with minimal likelihood of any meaningful neurological recovery. = Dyspnea: Patient remains intubated on mechanical ventilation. Follow-up chest x-ray on 08/08/17 showed unchanged bibasilar infiltrates. Requiring 70% FiO2 * Palliative care will follow this patient throughout his hospitalization to establish trust, assist with symptom management and clarification of medical treatment goals . Attestation To help prompt me to consider important information that might be impacting today's encounter and assessment, information from prior notes written by myself or my colleagues may have been "brought forward" into today's note. My signature on this note, however, is an attestation that I personally performed the exam, history, and/or decision-making noted today, and, unless otherwise indicated, the interactions with patient, family, and staff as well as the review of records all occurred today. I also attest that the listed assessment and stated plan reflect my best clinical judgment today based on the combination of historical information, prior notes, and today's exam/ interactions. When time spent is documented, it refers only to time spent today by the signer, or if indicated, combined time spent today by collaborating physician/nurse practitioner. Danielle Martinez Aug 10, 2017 10:05
--- NOTE | 2017-08-10 11:07 | HHI.NSPN ---
(Kathe Murphy) Note Status Status: Progress Note (Kathe Murphy) Interval History Interval History This is an 82-year-old gentleman who fell backwards off of a ladder approximately 10 feet. He underwent a brief round of CPR but was found to be spontaneously breathing so it was stopped patient was brought in the trauma bay hypertensive and confused he was intubated in the trauma bay. No seizure activity reported. No tongue biting. No incontinence of stool or urine. No tonic-clonic movements. He had unequal pupils and a coffee-ground emesis prior to intubation. He was upgraded to a level I trauma alert. He was resuscitated according to the ATLS protocol and full trauma workup was carried down. He was found to have right subarachnoid hemorrhage as well as subdural hematoma. He was given 2 units of platelets that for his platelet insufficiency due to Plavix. He was moving his extremities. Neurosurgical consultation was requested 07/31/17. Remains intubated and sedated. ICP monitor in place. A follow-up CT of the brain was obtained 08/01/17: intubated and sedated, ICPs below 10. 08/02/17: intubated, sedated. ICPs stable. f/u CT Brain yesterday showed slight increase in size of left subdural hematoma per Dr. Horne' review. decreasing renal function - nephrology consulted, also now with PVCs. 08/03/17: remains intubated, sedated on fentanyl and propofol drips. ICPs below 20. 08/04/17: ICPs stable overnight, f/u CT Brain this morning completed. intubated and sedated. 08/05/17: intubated and currently only minimally sedated, minimal eye opening when suctioned. 08/06 remains mechanically ventilated and sedated. Remains hypertensive despite numerous agents. Currently on second session of dialysis. 08/07. He vomited overnight and likely aspirated. Respiratory distress with increased Fio2 requirements. Maximal dose Cardene and Cardizem drips. Getting dialysis today 08/08: no change to his neuro exam. intubated, very minimal sedation - does not open eyes, withdraws to both feet. 08/09: intubated, off sedative drips. family in room, patient opening eyes, focusing today. for dialysis. 08/10: currently receiving dialysis, appears more drowsy today. EEG reports to moderate encephalopathy, no epileptiform activities. (Kathe Murphy) Labs, Micro, & Vital Signs Results Date Time Temp Pulse Resp B/P (MAP) Pulse Ox O2 Delivery O2 Flow Rate FiO2 08/10/17 10:00 73 08/10/17 08:44 98 70 08/10/17 08:00 98.8 73 17 118/57 (77) 100 08/10/17 08:00 77 08/10/17 08:00 70 08/10/17 06:00 75 08/10/17 05:39 97 70 08/10/17 04:00 100 08/10/17 04:00 98.7 87 20 134/67 (89) 95 08/10/17 04:00 78 08/10/17 02:00 98 08/10/17 01:14 100 80 08/10/17 00:00 100 08/10/17 00:00 98.9 82 19 151/57 (88) 97 08/10/17 00:00 98 08/09/17 22:00 98 08/09/17 20:00 100 08/09/17 20:00 98 08/09/17 20:00 99.1 82 17 153/65 (94) 95 08/09/17 19:34 100 90 08/09/17 18:14 96 149/63 08/09/17 18:00 98 08/09/17 17:04 95 100 08/09/17 16:00 100.0 88 26 117/56 (76) 97 08/09/17 16:00 88 08/09/17 16:00 100 08/09/17 14:00 84 08/09/17 12:43 92 40 08/09/17 12:00 99.8 83 31 127/60 (82) 94 08/09/17 12:00 40 08/09/17 12:00 83 08/11/17 07:00 Intake Total 200 ml Balance 200 ml Constitutional Vital Signs Date Time Temp Pulse Resp B/P (MAP) Pulse Ox O2 Delivery O2 Flow Rate FiO2 08/10/17 10:00 73 08/10/17 08:44 98 70 08/10/17 08:00 98.8 73 17 118/57 (77) 100 08/10/17 08:00 77 08/10/17 08:00 70 08/10/17 06:00 75 08/10/17 05:39 97 70 08/10/17 04:00 100 08/10/17 04:00 98.7 87 20 134/67 (89) 95 08/10/17 04:00 78 08/10/17 02:00 98 08/10/17 01:14 100 80 08/10/17 00:00 100 08/10/17 00:00 98.9 82 19 151/57 (88) 97 08/10/17 00:00 98 08/09/17 22:00 98 08/09/17 20:00 100 08/09/17 20:00 98 08/09/17 20:00 99.1 82 17 153/65 (94) 95 08/09/17 19:34 100 90 08/09/17 18:14 96 149/63 08/09/17 18:00 98 08/09/17 17:04 95 100 08/09/17 16:00 100.0 88 26 117/56 (76) 97 08/09/17 16:00 88 08/09/17 16:00 100 08/09/17 14:00 84 08/09/17 12:43 92 40 08/09/17 12:00 99.8 83 31 127/60 (82) 94 08/09/17 12:00 40 08/09/17 12:00 83 08/11/17 07:00 Intake Total 200 ml Balance 200 ml (Kathe Murphy) Review of Systems ROS Limitations: Intubated (Kathe Murphy) Physical Exam Mr. Alonzo is intubated and without sedation. Receiving dialysis. Head: prior bolt site healing Cranial Nerves: Pupils right 2mm, left 3 mm round. Cervical Spine: soft, supple Motor: not following commands for testing, minimal withdraw both lower extremities to local stimuli, no response to pain in upper extremities Cerebellar: cannot be adequately assessed due to the patient's neurological condition. Heart: regular rate, rhythm Resp: clear, mechanically ventilated Skin: warm, dry (Kathe Murphy) Mr. Alonzo is intubated and without sedation. Receiving dialysis. Head: prior bolt site healing Cranial Nerves: Pupils right 2mm, left 3 mm round. Cervical Spine: soft, supple Motor: not following commands for testing, minimal withdraw both lower extremities to local stimuli, no response to pain in upper extremities Cerebellar: cannot be adequately assessed due to the patient's neurological condition. Heart: regular rate, rhythm Resp: clear, mechanically ventilated Skin: warm, dry (Les Horne MD) Medications Current Medications Current Medications Medications (Trade) Dose Ordered Sig/Juliet Route PRN Reason Start Time Stop Time Status Last Admin Dose Admin Sodium Chloride (NS Flush) 2 ml UNSCH PRN IV FLUSH FLUSH AFTER USING IV ACCESS 07/30/17 12:45 08/09/17 07:48 Ondansetron HCl (Zofran Inj) 4 mg Q6H PRN IV PUSH NAUSEA OR VOMITING 07/30/17 12:45 08/06/17 18:19 Miscellaneous Information 1 Q361D XX 07/30/17 12:45 Chlorhexidine Gluconate (Chlorhexidine 2% Cloth) Taper DAILY@04 TOP 07/31/17 04:00 07/27/18 03:59 08/05/17 03:26 Chlorhexidine Gluconate (Chlorhexidine 2% Cloth) 3 pack UNSCH PRN TOP HYGIENIC CARE 07/30/17 12:45 Chlorhexidine Gluconate (Peridex 0.12% Liq) 15 ml BID@08,20 MT 07/30/17 20:00 08/10/17 08:46 Famotidine (Pepcid) 10 mg BID PO 07/30/17 21:00 08/10/17 08:47 Pravastatin Sodium (Pravachol) 40 mg DAILY PO 07/31/17 09:00 08/10/17 08:47 Dextrose (D50w (Vial) Inj) 50 ml UNSCH PRN IV PUSH HYPOGLYCEMIA-SEE COMMENTS 07/31/17 07:45 Glucagon (Glucagon Inj) 1 mg UNSCH PRN OTHER HYPOGLYCEMIA-SEE COMMENTS 07/31/17 07:45 Senna/Docusate Sodium (Jackelyn-Colace) 1 tab BID PO 08/01/17 21:00 08/09/17 22:16 Bisacodyl (Dulcolax Supp) 10 mg DAILY PRN RECTAL Constipation 08/01/17 16:15 Insulin Aspart (NovoLOG SUPPLEMENTAL SCALE) 1 Q6HR SQ 08/01/17 18:00 08/10/17 07:18 Hydralazine HCl (Apresoline Inj) 10 mg Q4HR PRN IV PUSH SBP>160, DBP>90 08/04/17 12:30 08/09/17 08:54 Furosemide (Lasix Inj) 80 mg Q8HR IV PUSH 08/04/17 22:00 08/10/17 05:44 Magnesium Hydroxide (Milk Of Magncrystal Liq) 30 ml BID PO 08/05/17 09:00 08/06/17 07:56 Metoclopramide HCl (Reglan Inj) 5 mg Q8HR IV PUSH 08/05/17 14:00 08/10/17 05:44 Heparin Sodium (Porcine) (Heparin Inj) 5,000 units Q8HR SQ 08/05/17 14:00 Future hold 08/10/17 05:44 Sodium Chloride 1,000 ml @ 0 mls/hr Q0M PRN OTHER For Prime & Rinse Back 08/05/17 13:51 Sodium Chloride 1,000 ml @ 200 mls/hr Q5H PRN IV WITH DIALYSIS 08/05/17 13:51 08/06/17 13:21 Sodium Chloride 1,000 ml @ 0 mls/hr Q0M PRN OTHER WITH DIALYSIS 08/05/17 13:51 Albumin Human 100 ml @ 60 mls/hr UNSCH PRN IV WITH DIALYSIS 08/05/17 14:00 08/10/17 09:14 Sodium Chloride (NS Flush) 5 ml UNSCH PRN IV FLUSH WITH DIALYSIS 08/05/17 14:00 Heparin Sodium (Porcine) (Heparin Inj) UNSCH PRN .XX WITH DIALYSIS 08/05/17 14:00 08/10/17 09:14 Gentamicin Sulfate (Gentamicin Inj) 20 mg UNSCH PRN OTHER WITH DIALYSIS 08/05/17 14:00 08/10/17 09:14 Ondansetron HCl (Zofran Inj) 4 mg UNSCH PRN IV PUSH WITH DIALYSIS 08/05/17 14:00 Acetaminophen (Tylenol) 650 mg UNSCH PRN PO for headach, pain, temp > 101F 08/05/17 14:00 Diphenhydramine HCl (Benadryl) 25 mg UNSCH PRN PO for hives/itching/anaphylaxis 08/05/17 14:00 Nitroglycerin (Nitrostat Sl) 0.4 mg UNSCH PRN SL CHEST PAIN 08/05/17 14:00 Clonidine (Catapres) 0.1 mg UNSCH PRN PO for BP > 180/100 X 2 readings 08/05/17 14:00 08/08/17 01:57 Gelatin (Gelfoam 12 Mm/7 Mm Top) 1 foam UNSCH PRN TOP SEE LABEL COMMENTS 08/05/17 14:00 Nicardipine HCl 50 mg/Sodium Chloride 500 ml @ 50 mls/hr TITRATE PRN IV Blood pressure management 08/06/17 00:15 08/09/17 18:14 Albuterol Sulfate (Albuterol Neb) 2.5 mg Q2HR NEB PRN NEB dyspnea 08/06/17 09:45 Amlodipine Besylate (Norvasc) 10 mg DAILY PO 08/07/17 09:00 08/10/17 08:47 Hydralazine HCl (Apresoline) 100 mg Q8HR PO 08/06/17 14:00 08/10/17 05:44 Lactulose (Lactulose Liq) 30 ml QID PO 08/06/17 13:00 08/09/17 22:15 Polyethylene Glycol (Miralax) 17 gm BID NG 08/06/17 21:00 08/09/17 07:47 Allopurinol (Zyloprim) 100 mg DAILY PO 08/07/17 09:00 08/10/17 08:47 Terazosin HCl (Hytrin) 7 mg BID NG 08/06/17 13:30 08/10/17 09:14 Metoprolol Tartrate (Lopressor Inj) 2.5 mg Q6H PRN IV PUSH HR >120 08/07/17 07:45 08/08/17 08:35 Carvedilol (Coreg) 12.5 mg Q12HR PO 08/08/17 09:00 08/10/17 08:47 Chlorothiazide (Diuril) 500 mg Q12H G-TUBE 08/09/17 03:15 08/10/17 04:13 Diltiazem HCl (Cardizem) 90 mg Q6HR PO 08/09/17 12:00 08/10/17 05:44 Albuterol/ Ipratropium (Duoneb Neb) 1 ampule Q6HR NEB NEB 08/09/17 16:00 08/10/17 08:39 Clonidine (Catapres) 0.3 mg Q8HR PO 08/09/17 14:00 08/10/17 05:44 Miscellaneous Information 2 Q7D T-DERMAL 08/12/17 11:00 Clonidine (Catapres-Tts 0.3 Mg Patch.7d) 2 patch Q7D T-DERMAL 08/09/17 12:00 08/09/17 11:13 Cefepime HCl 1000 mg/Sodium Chloride 100 ml @ 200 mls/hr Q24H IV 08/10/17 09:00 08/10/17 08:47 (Kathe Murphy) Current Medications Current Medications Ondansetron HCl (Zofran Inj) 4 mg STK-MED ONCE .ROUTE ; Start 07/30/17 at 11:55; Stop 07/30/17 at 11:56; Status DC Propofol 100 ml @ As Directed STK-MED ONCE .ROUTE ; Start 07/30/17 at 12:04; Stop 07/30/17 at 12:05; Status DC Nicardipine HCl (Cardene Inj) 25 mg STK-MED ONCE .ROUTE ; Start 07/30/17 at 12:08 ; Stop 07/30/17 at 12:09; Status DC Sodium Chloride 1,000 ml @ 60 mls/hr [id number] IV Last administered on 08/01/17at 08:45; Start 07/30/17 at 12:31; Stop 08/01/17 at 11:50; Status DC Sodium Chloride (NS Flush) 2 ml UNSCH PRN IV FLUSH FLUSH AFTER USING IV ACCESS Last administered on 08/09/17at 07:48; Start 07/30/17 at 12:45 Ondansetron HCl (Zofran Inj) 4 mg Q6H PRN IV PUSH NAUSEA OR VOMITING Last administered on 08/06/17at 18:19; Start 07/30/17 at 12:45 Multivitamins 10 ml/Thiamine HCl 100 mg/Folic Acid 1 mg/Sodium Chloride 511.2 ml @ 125 mls/hr Q24H IV Last administered on 08/01/17at 15:19; Start 07/30/17 at 15:00; Stop 08/01/17 at 19:06; Status DC Docusate Sodium (Colace) 100 mg BID PO Last administered on 08/01/17at 08:44; Start 07/30/17 at 21:00; Stop 08/01/17 at 16:11; Status DC Magnesium Hydroxide (Milk Of Magnesia Liq) 30 ml Q6H PRN PO CONSTIPATION; Start 07/30/17 at 12:45; Stop 08/01/17 at 16:11; Status DC Miscellaneous Information 1 Q361D XX ; Start 07/30/17 at 12:45 Chlorhexidine Gluconate (Chlorhexidine 2% Cloth) Taper DAILY@04 TOP Last administered on 08/05/17at 03:26; Start 07/31/17 at 04:00; Stop 07/27/18 at 03:59 Chlorhexidine Gluconate (Chlorhexidine 2% Cloth) 3 pack UNSCH PRN TOP HYGIENIC CARE; Start 07/30/17 at 12:45 Propofol 100 ml @ 0 mls/hr TITRATE PRN IV SEDATION; Start 07/30/17 at 13:00; Stop 07/30/17 at 13:30; Status DC Chlorhexidine Gluconate (Peridex 0.12% Liq) 15 ml BID@08,20 MT Last administered on 08/10/17at 08:46; Start 07/30/17 at 20:00 Propofol 100 ml @ 0 mls/hr TITRATE PRN IV SEDATION; Start 07/30/17 at 13:00; Stop 07/30/17 at 13:00; Status DC Fentanyl Citrate 250 ml TITRATE PRN IV SEDATION; Start 07/30/17 at 13:00; Stop 07/30/17 at 13:00; Status DC Fentanyl Citrate 250 ml TITRATE PRN IV SEDATION; Start 07/30/17 at 13:00; Stop 07/30/17 at 13:30; Status DC Albuterol/ Ipratropium (Duoneb Neb) 1 ampule Q6HR NEB NEB Last administered on 08/02/17at 20:40; Start 07/30/17 at 16:00; Stop 08/02/17 at 20:55; Status DC Diphtheria/ Tetanus/Acell Pertussis (Boostrix Inj) 0.5 ml STK-MED ONCE IM ; Start 07/30/17 at 12:58; Stop 07/30/17 at 12:59; Status DC Etomidate (Amidate Inj) 20 mg STK-MED ONCE .ROUTE ; Start 07/30/17 at 13:01; Stop 07/30/17 at 13:02; Status DC Succinylcholine Chloride (Quelicin Inj) 200 mg STK-MED ONCE .ROUTE ; Start at 13:01; Stop 07/30/17 at 13:02; Status DC Fentanyl Citrate 250 ml @ 5 mls/hr TITRATE PRN IV Sedation Last administered on 08/05/17at 22:20; Start 07/30/17 at 13:30; Stop 08/07/17 at 16:32; Status DC Propofol 100 ml @ 2.64 mls/hr TITRATE PRN IV SEDATION Last administered on 05/16at 06:03; Start 07/30/17 at 13:30; Stop 08/09/17 at 10:23; Status DC Famotidine (Pepcid) 10 mg BID PO Last administered on 08/10/17at 08:47; Start at 21:00 Nicardipine HCl 25 mg/Sodium Chloride 250 ml @ 50 mls/hr TITRATE PRN IV Blood pressure management Last administered on 08/05/17at 22:23; Start 07/30/17 at 16:15 ; Stop 08/06/17 at 00:11; Status DC Spironolactone (Aldactone) 25 mg DAILY PO Last administered on 08/01/17at 08:44; Start 07/31/17 at 09:00; Stop 08/01/17 at 09:54; Status DC Pravastatin Sodium (Pravachol) 40 mg DAILY PO Last administered on 08/10/17at 08 :47; Start 07/31/17 at 09:00 Metoprolol Tartrate (Lopressor) 25 mg Q12HR PO Last administered on 08/03/17at 20 :33; Start 07/31/17 at 09:00; Stop 08/04/17 at 09:36; Status DC Hydralazine HCl (Apresoline) 25 mg Q12HR PO Last administered on 07/31/17at 07:42 ; Start 07/31/17 at 09:00; Stop 07/31/17 at 09:00; Status DC Furosemide (Lasix Inj) 40 mg BID@,18 IV PUSH Last administered on 08/02/17at 10 :33; Start 07/31/17 at 09:00; Stop 08/02/17 at 13:29; Status DC Dextrose (D50w (Vial) Inj) 50 ml UNSCH PRN IV PUSH HYPOGLYCEMIA-SEE COMMENTS; Start 07/31/17 at 07:45 Glucagon (Glucagon Inj) 1 mg UNSCH PRN OTHER HYPOGLYCEMIA-SEE COMMENTS; Start 07/31/17 at 07:45 Insulin Aspart (NovoLOG SUPPLEMENTAL SCALE) 1 Q6H SQ ; Start 07/31/17 at 07:45; Stop 08/01/17 at 17:31; Status DC Sodium Chloride 250 ml @ 15 mls/hr ONCE ONCE IV Last administered on at 10:55; Start 07/31/17 at 08:15; Stop 08/01/17 at 00:54; Status DC Terazosin HCl (Hytrin) 10 mg HS PO Last administered on 08/05/17at 20:12; Start 07/31/17 at 21:00; Stop 08/06/17 at 13:26; Status DC Hydralazine HCl (Apresoline) 100 mg Q12HR PO Last administered on 08/05/17at 20: 13; Start 07/31/17 at 09:00; Stop 08/06/17 at 09:42; Status DC Levetriacetam 500 mg/Sodium Chloride 105 ml @ 420 mls/hr Q12HR IV Last administered on 08/06/17at 07:57; Start 08/01/17 at 10:00; Stop 08/06/17 at 09:42 ; Status DC Dextrose 1,000 ml @ 42 mls/hr [id number] IV Last administered on 08/01/17at 13:09; Start 08/01/17 at 12:00; Stop 08/01/17 at 16:51; Status DC Chlorothiazide Sodium (Diuril Inj) 250 mg Q12H IV Last administered on at 13:15; Start 08/01/17 at 13:00; Stop 08/02/17 at 13:29; Status DC Clonidine (Catapres-Tts 0.2 Mg Patch.7d) 1 patch Q7D T-DERMAL ; Start 08/01/17 at 13:30; Stop 08/01/17 at 15:09; Status DC Clonidine (Catapres-Tts 0.2 Mg Patch.7d) 1 patch Q7D T-DERMAL ; Start 08/01/17 at 16:00; Stop 08/01/17 at 17:30; Status DC Miscellaneous Information 1 Q7D T-DERMAL ; Start 08/08/17 at 16:00; Stop at 16:00; Status DC Senna/Docusate Sodium (Jackelyn-Colace) 1 tab BID PO Last administered on at 22:16; Start 08/01/17 at 21:00 Lactulose (Lactulose Liq) 30 ml DAILY PO Last administered on 08/09/17at 07:47; Start 08/01/17 at 16:15; Stop 08/09/17 at 10:39; Status DC Bisacodyl (Dulcolax Supp) 10 mg DAILY PRN RECTAL Constipation; Start 08/01/17 at 16:15 Clonidine (Catapres-Tts 0.2 Mg Patch.7d) 1 patch Q7D T-DERMAL Last administered on 08/01/17at 20:31; Start 08/01/17 at 20:00; Stop 08/05/17 at 09:18; Status DC Miscellaneous Information 1 Q7D T-DERMAL ; Start 08/01/17 at 20:00; Stop 08/05/17 at 09:18; Status DC Insulin Aspart (NovoLOG SUPPLEMENTAL SCALE) 1 Q6HR SQ Last administered on 08/10at 11:46; Start 08/01/17 at 18:00 Sodium Bicarbonate (Sodium Bicarbonate 8.4% Inj) 50 meq UNSCH X1 IV Last administered on 08/02/17at 05:41; Start 08/02/17 at 05:45; Stop 08/02/17 at 08:20; Status DC Chlorothiazide Sodium (Diuril Inj) 500 mg Q12H IV Last administered on at 01:08; Start 08/03/17 at 01:00; Stop 08/09/17 at 10:41; Status DC Furosemide (Lasix Inj) 80 mg BID@,18 IV PUSH Last administered on 08/04/17at 18 :34; Start 08/02/17 at 18:00; Stop 08/04/17 at 19:28; Status DC Albuterol/ Ipratropium (Duoneb Neb) 1 ampule Q6HR NEB NEB Last administered on 08/06/17 07:52; Start 08/02/17 at 22:00; Stop 08/06/17 at 09:35; Status DC Metoprolol Tartrate (Lopressor Inj) 5 mg Q6H IV PUSH Last administered on at 09:24; Start 08/04/17 at 10:00; Stop 08/09/17 at 10:06; Status DC Hydralazine HCl (Apresoline Inj) 10 mg Q4HR PRN IV PUSH SBP>160, DBP>90 Last administered on 08/09/17at 08:54; Start 08/04/17 at 12:30 Furosemide (Lasix Inj) 80 mg Q8HR IV PUSH Last administered on 08/10/17at 13:44 ; Start 08/04/17 at 22:00 Sodium Bicarbonate (Sodium Bicarbonate 8.4% Inj) 100 meq STK-MED ONCE .ROUTE Last administered on 08/05/17 05:25; Start 08/05/17 at 05:25; Stop 08/05/17 at 05: 26; Status DC Bisacodyl (Dulcolax Supp) 10 mg ONCE ONCE RECTAL Last administered on 08:03; Start 08/05/17 at 07:45; Stop 08/05/17 at 07:46; Status DC Magnesium Hydroxide (Milk Of Magnesia Liq) 30 ml BID PO Last administered on 07:56; Start 08/05/17 at 09:00 Clonidine (Catapres-Tts 0.3 Mg Patch.7d) 1 patch Q7D T-DERMAL Last administered on 08/05/17at 11:49; Start 08/05/17 at 11:00; Stop 08/09/17 at 10:08; Status DC Metoclopramide HCl (Reglan Inj) 5 mg Q8HR IV PUSH Last administered on at 13:45; Start 08/05/17 at 14:00 Amlodipine Besylate (Norvasc) 5 mg DAILY PO Last administered on 08/05/17 09:18 ; Start 08/05/17 at 09:15; Stop 08/06/17 at 09:42; Status DC Dextrose (D50w (Syr) Inj) 50 ml ONCE ONCE IV PUSH Last administered on at 10:44; Start 08/05/17 at 09:15; Stop 08/05/17 at 09:16; Status DC Insulin Human Regular (NovoLIN R INJ) 10 units ONCE ONCE IV PUSH Last administered on 08/05/17at 10:53; Start 08/05/17 at 09:15; Stop 08/05/17 at 09:16; Status DC Sodium Polystyrene Sulfonate (Kayexalate Liq) 15 gm Q2HR PO Last administered on 08/05/17at 15:02; Start 08/05/17 at 10:00; Stop 08/05/17 at 14:02; Status DC Heparin Sodium (Porcine) (Heparin Inj) 5,000 units Q8HR SQ Last administered on 08/10/17at 13:45; Start 08/05/17 at 14:00; Status Future hold Miscellaneous Information 1 Q7D T-DERMAL ; Start 08/12/17 at 11:00; Stop at 11:00; Status DC Sodium Chloride 1,000 ml @ 0 mls/hr Q0M PRN OTHER For Prime & Rinse Back; Start 08/05/17 at 13:51 Sodium Chloride 1,000 ml @ 200 mls/hr Q5H PRN IV WITH DIALYSIS Last administered on 08/06/17at 13:21; Start 08/05/17 at 13:51 Sodium Chloride 1,000 ml @ 0 mls/hr Q0M PRN OTHER WITH DIALYSIS; Start 08/05/17 at 13:51 Albumin Human 100 ml @ 60 mls/hr UNSCH PRN IV WITH DIALYSIS Last administered on 08/10/17at 09:14; Start 08/05/17 at 14:00 Sodium Chloride (NS Flush) 5 ml UNSCH PRN IV FLUSH WITH DIALYSIS; Start at 14:00 Heparin Sodium (Porcine) (Heparin Inj) UNSCH PRN .XX WITH DIALYSIS Last administered on 08/10/17at 09:14; Start 08/05/17 at 14:00 Gentamicin Sulfate (Gentamicin Inj) 20 mg UNSCH PRN OTHER WITH DIALYSIS Last administered on 08/10/17at 09:14; Start 08/05/17 at 14:00 Ondansetron HCl (Zofran Inj) 4 mg UNSCH PRN IV PUSH WITH DIALYSIS; Start at 14:00 Acetaminophen (Tylenol) 650 mg UNSCH PRN PO for headach, pain, temp > 101F; Start 08/05/17 at 14:00 Diphenhydramine HCl (Benadryl) 25 mg UNSCH PRN PO for hives/itching/anaphylaxis ; Start 08/05/17 at 14:00 Nitroglycerin (Nitrostat Sl) 0.4 mg UNSCH PRN SL CHEST PAIN; Start 08/05/17 at 14:00 Clonidine (Catapres) 0.1 mg UNSCH PRN PO for BP > 180/100 X 2 readings Last administered on 08/08/17at 01:57; Start 08/05/17 at 14:00 Gelatin (Gelfoam 12 Mm/7 Mm Top) 1 foam UNSCH PRN TOP SEE LABEL COMMENTS; Start 08/05/17 at 14:00 Heparin Sodium (Porcine) (Heparin Inj) 10,000 units NOW ONCE IV PUSH Last administered on 08/05/17at 17:10; Start 08/05/17 at 17:00; Stop 08/05/17 at 17:07; Status DC Nicardipine HCl 50 mg/Sodium Chloride 500 ml @ 50 mls/hr TITRATE PRN IV Blood pressure management Last administered on 08/09/17at 18:14; Start 08/06/17 at 00: 15 Albuterol/ Ipratropium (Duoneb Neb) 1 ampule Q6HR NEB NEB Last administered on 08/09/17at 08:58; Start 08/06/17 at 10:00; Stop 08/09/17 at 10:05; Status DC Albuterol Sulfate (Albuterol Neb) 2.5 mg Q2HR NEB PRN NEB dyspnea; Start at 09:45 Amlodipine Besylate (Norvasc) 10 mg DAILY PO Last administered on 08/10/17at 08: 47; Start 08/07/17 at 09:00 Hydralazine HCl (Apresoline) 100 mg Q8HR PO Last administered on 08/10/17at 13: 45; Start 08/06/17 at 14:00 Levetriacetam (Keppra Liq) 500 mg Q12HR NG Last administered on 08/08/17at 08: 33; Start 08/06/17 at 21:00; Stop 08/08/17 at 10:14; Status DC Lactulose (Lactulose Liq) 30 ml QID PO Last administered on 08/09/17at 22:15; Start 08/06/17 at 13:00 Polyethylene Glycol (Miralax) 17 gm BID NG Last administered on 08/09/17at 07:47 ; Start 08/06/17 at 21:00 Mineral Oil (Kondremul Liq) 30 ml ONCE ONCE PO Last administered on 08/06/17at 14:44; Start 08/06/17 at 09:45; Stop 08/06/17 at 10:42; Status DC Glycerin (Glycerin Adult Supp) 2 gm ONCE ONCE RECTAL Last administered on 08/06at 14:44; Start 08/06/17 at 09:45; Stop 08/06/17 at 10:40; Status DC Methylnaltrexone Lund (Relistor Inj) 12 mg ONCE ONCE SQ Last administered on 08/06/17at 14:44; Start 08/06/17 at 09:45; Stop 08/06/17 at 10:42; Status DC Allopurinol (Zyloprim) 100 mg DAILY PO Last administered on 08/10/17at 08:47; Start 08/07/17 at 09:00 Terazosin HCl (Hytrin) 7 mg BID NG Last administered on 08/10/17at 09:14; Start 08/06/17 at 13:30 Diltiazem HCl (Cardizem Inj) 20 mg ONCE ONCE IV PUSH ; Start 08/06/17 at 22:45 ; Stop 08/06/17 at 22:46; Status Cancel Diltiazem HCl 125 mg/Sodium Chloride 125 ml @ 5 mls/hr TITRATE PRN IV Tachycardia Last administered on 08/09/17at 08:03; Start 08/06/17 at 22:45; Stop 08/09/17 at 10:13; Status DC Diltiazem HCl (Cardizem Inj) 20 mg ONCE ONCE IV Last administered on at 23:25; Start 08/06/17 at 23:30; Stop 08/06/17 at 23:31; Status DC Mannitol 100 ml @ As Directed STK-MED ONCE .ROUTE ; Start 08/07/17 at 07:16; Stop 08/07/17 at 07:17; Status DC Sodium Bicarbonate (Sodium Bicarbonate 8.4% Inj) 50 meq NOW ONCE IV Last administered on 08/07/17at 07:51; Start 08/07/17 at 07:45; Stop 08/07/17 at 07:46 ; Status DC Diltiazem HCl (Cardizem Inj) 25 mg STK-MED ONCE .ROUTE Last administered on 04/16at 07:51; Start 08/07/17 at 07:36; Stop 08/07/17 at 07:37; Status DC Sodium Bicarbonate (Sodium Bicarbonate 8.4% Inj) 50 meq ONCE ONCE IV PUSH ; Start 08/07/17 at 08:30; Stop 08/07/17 at 08:31; Status DC Metoprolol Tartrate (Lopressor Inj) 2.5 mg Q6H PRN IV PUSH HR >120 Last administered on 08/08/17at 08:35; Start 08/07/17 at 07:45 Cefepime HCl 1000 mg/Sodium Chloride 100 ml @ 200 mls/hr Q12H IV Last administered on 08/09/17at 09:24; Start 08/07/17 at 10:00; Stop 08/09/17 at 14:53 ; Status DC Vancomycin HCl 1000 mg/Sodium Chloride 250 ml @ 250 mls/hr ONCE ONCE IV Last administered on 08/07/17at 10:34; Start 08/07/17 at 09:00; Stop 08/07/17 at 09:59 ; Status DC Diltiazem HCl (Cardizem Inj) 15 mg ONCE ONCE IV ; Start 08/07/17 at 08:30; Stop 08/07/17 at 08:31; Status DC Carvedilol (Coreg) 12.5 mg Q12HR PO Last administered on 08/10/17at 08:47; Start 08/08/17 at 09:00 Potassium Chloride 100 ml @ 50 mls/hr NOW ONCE IV Last administered on at 11:54; Start 08/08/17 at 11:00; Stop 08/08/17 at 12:59; Status DC Chlorothiazide (Diuril) 500 mg Q12H G-TUBE Last administered on 08/10/17at 13:45 ; Start 08/09/17 at 03:15 Potassium Chloride (KCl) 20 meq NOW ONCE PO Last administered on 08/09/17at 09: 24; Start 08/09/17 at 09:30; Stop 08/09/17 at 09:31; Status DC Potassium Chloride 100 ml @ 25 mls/hr ONCE ONCE IV Last administered on at 09:24; Start 08/09/17 at 09:30; Stop 08/09/17 at 13:29; Status DC Diltiazem HCl (Cardizem) 90 mg Q6HR PO Last administered on 08/10/17at 11:46; Start 08/09/17 at 12:00 Albuterol/ Ipratropium (Duoneb Neb) 1 ampule Q6HR NEB NEB Last administered on 08/10/17at 08:39; Start 08/09/17 at 16:00 Clonidine (Catapres) 0.3 mg Q8HR PO Last administered on 08/10/17at 13:45; Start 08/09/17 at 14:00 Miscellaneous Information 2 Q7D T-DERMAL ; Start 08/12/17 at 11:00 Clonidine (Catapres-Tts 0.3 Mg Patch.7d) 2 patch Q7D T-DERMAL Last administered on 08/09/17at 11:13; Start 08/09/17 at 12:00 Vancomycin HCl 1000 mg/Sodium Chloride 250 ml @ 250 mls/hr ONCE ONCE IV Last administered on 08/09/17at 11:32; Start 08/09/17 at 11:00; Stop 08/09/17 at 11:59 ; Status DC Pharmacy Profile Note 0 ml @ 0 mls/hr UNSCH OTHER ; Start 08/09/17 at 10:30; Stop 08/10/17 at 08:13; Status DC Cefepime HCl 1000 mg/Sodium Chloride 100 ml @ 200 mls/hr Q24H IV Last administered on 08/10/17at 08:47; Start 08/10/17 at 09:00 (Les Horne MD) Medical Decision Making MDM Remarks 82-year-old gentleman who fell backwards off of a ladder approximately 10 feet TBI, s/p placement of intracranial pressure monitor with stable ICPs CT Brain 07/31/17: increase in the size of the left subdural hematoma. Stable right subdural hematoma. Increase in size of the right temporal tip hematoma. Stable size left temporal hematoma 08/02/27: Stable intraparenchymal, subdural, and intraventricular hemorrhage. No midline shift or new sites of hemorrhage. 08/04/17 reports Stable intracranial findings including bilateral subdural hematomas, intraventricular blood products, and bilateral temporal lobe hemorrhagic contusions There is no midline shift or herniation. Ventricles are stable in size. neuro exam improving - off sedatives, opening eyes and focusing from 08/09/17 (Kathe Murphy) Plan Plan Remarks currently with dialysis, EEG report reviewed, moderate encephalopathy - no seizures cont serial neuro checks and f/u neuro exam cont mgt per trauma and critical care (Kathe Murphy) Attending Statement Continue neuro checks. I ordered a follow up EEG. Continue Dialysis, still in critical condition. His pulmonary condition has deteriorated Pulmonary. Continue full mechanical ventilation in Assist control mode of ventilation aggressive pulmonary toilette, nasotracheal suction, and breathing treatments with nebulizers. Daily PT and OT Renal. monitor closely urine output, BUN and creatinine Endocrine.Monitor serial Acu checks and SSI as needed in detail ID monitor for signs of infection Protonix for stress ulcer prophylaxis Gilbert hose and SCD's for DVT prophylaxis Further recommendations will be provided depending on the patient's clinical evaluation and follow up studies The exam, history, and the medical decision-making described in the above note were completed with the assistance of the mid-level provider. I reviewed and agree with the findings presented. I attest that I had a [id number] encounter with the patient on the same day, and personally performed and documented my assessment and findings in the medical record. Discussed with his family at bedside (Les Horne MD) Ktahe Murphy Aug 10, 2017 11:07 Les Horne MD Aug 10, 2017 14:09
[2017-08-10 14:26] LABS: ALBUMIN 2.2 GM/DL (3.4-5.0); PHOSPHORUS 3.7 MG/DL (2.5-4.9)
--- NOTE | 2017-08-10 15:46 | HHI.CCPN ---
Subjective Brief History EKWOK: This is a 82-year-old gentleman who fell backwards off of a ladder with brief loss of consciousness and brief round of CPR at the scene was brought in as a level II trauma alert intubated in the trauma bay and upgraded to level I. He was found to have subdural and subarachnoid hemorrhages and was given 2 units of platelets for platelet dysfunction secondary to Plavix use. Final injuries: Right temporal intraparenchymal hemorrhage with slight subdural component Left frontoparietal and temporo-occipital subdural hematoma about 1 cm thick Patient has complex history of CHF,coronary artery disease, diabetes mellitus and chronic renal insufficiency requiring dialysis in 2013. Since then patient has been off dialysis but at this point creatinine is rising. 24 Hour Review/Hospital Course 07/[address] appears to be worse today with slight increase in the size of his bleeds Is currently on a Cardene drip to maintain systolic blood pressure less than 160 , his beta stacie has been held for a heart rate in the mid 50s 08/01/2017 Patient is intubated ventilated on propofol and fentanyl ICP measurements about 5-8 mmHg Remains sedated not moving any extremities at this time Hemodynamically patient is stable with hypertension. Patient is noted to be hypertensive from home and some of medications have been reinstituted In addition to Lopressor and hydralazine patient is currently on Cardene drip in order to keep systolic blood pressure under 160 mmHg Patient will need Catapres patch in order to wean off Cardene In face of increased creatinine and BUN patient did not have IV contrast to assess the chest and abdomen but externally there are no signs of trauma to either Renal function as above noted is impaired with rising creatinine and BUN. Nephrology consult from Dr. Chavez is greatly appreciated Patient will be managed expectantly and as the neurologic function improves sedation will be gradually weaned It should be noted that severe brain trauma in this age group with related medical problems survival is very low and patient is a high mortality probably in the range of 80-90%. 08/02/2017 Patient remains intubated ventilated and sedated with all neuroprotective measures Hemodynamically patient is stable and hypertensive on several antihypertensive drugs including Cardene noted to keep systolic blood pressure under 160 mmHg Bilateral breath sounds remains ventilatory dependent in the face of decreased level of consciousness On assist control ventilation 40% FiO2 Abdomen soft nontender will start on enteral feedings Nephrology help is greatly appreciated in the care of this patient with marginal renal function and he may need intermittent dialysis should his fluid status worsened and he becomes fluid overloaded 08/03/17 severe TBI on elderly patient with multiple medical issues PRINCE superimposed on chronic renal failure compensated metabolic acidosis secondary due to renal failure diuresis initiated by debone supervisor moene for BP control 08/04/2018 Patient this point is off sedation however there is no appreciable neurologic function except for some movement of upper extremities Foreman Coma Scale 4 Hemodynamically patient is stable however quite hypertensive on multiple medications and even on Cardene drip difficulty controlling systolic blood pressure Cardiology help is greatly appreciated. Cardiac function intact and no signs of contusion or acute injury to the heart Bilateral breath sounds decreased over the right base were patient has a infiltrate in the right lower lobe Remains on assist control ventilation fully supported not breathing over the respirator but with good PO2 FiO2 gradient Abdomen is soft and enteral feeds of tolerated Renal function is gradually deteriorating and patient had underlying renal insufficiency prior to this event. He was on dialysis few years ago in an unrelated episode. At this point in discussions with family there is some ambiguity about which way to go. This patient has 90% mortality in 100% morbidity and most likely in the best case scenario patient will require tracheostomy feeding tube and will remain bedridden permanently 08/05/2017 PTD: 6 Mechanically ventilated and sedated Patient remains hypertensive on max Cardene. Increased clonidine patch and added Norvasc. Will have meeting with family to discuss plan of care and decision on whether to progress to dialysis. 08/06/2017 PTD: 7 Patient remains mechanically ventilated and sedated. Remains hypertensive despite numerous agents. Currently on second session of dialysis. 08/07/17 Vomited overnight and likely aspirated Respiratory distress with increased Fio2 requirements overnight Maxed out on Cardene and Cardizem gtts Getting dialysis during visit 08/08/2017 No change in neurologic status patient remains unconscious withdraws to pain Riley Coma Scale 4 Hemodynamically patient is intact however hypertension hard to control Remains on Cardene drip and a slew of antihypertensives Several rounds of V. tach in last 48 hours which resolved spontaneously Bilateral breath sounds with good PO2 FiO2 gradient and improving pulmonary function Abdomen soft Patient aspirated the other day and therefore will be kept off enteral feeds for the time being Ileus due to multiple medications including fentanyl Patient has no reasonable chance of meaningful recovery Family is not sure about tracheostomy and PEG Prognosis poor 08/09 multi organ failure severe HTN on multiple agents-including cardizem/cardene start to move extremities off sedation NG 100cc/12 hrs ,diarrhea staph + BAL on vanco 08/10/2018 Patient is only a small dose fentanyl however his Riley Coma Scale remains around 5 Somewhat he stated that patient open his eyes but I have not had a chance to see this Patient withdraws to pain occasionally This is consistent with severe hypoxic injury and cerebral anoxia Hemodynamically patient is stable however requiring very high doses of antihypertensives including Cardene drip which is maximized at this time The only other options are Nipride and Arfonad but in patients with head injury and perceived intracranial hypertension but this is discouraged Bilateral breath sounds remains ventilatory dependent with good PO2 FiO2 gradient Bilateral basal infiltrates right more than left Abdomen soft enteral feeds tolerated At this point patient should have a tracheostomy and PEG if we proceed with further care however family is debating supportive care option at this time in face of very poor prognosis Palliative care consult and help is greatly appreciated Objective Vital Signs Date Time Temp Pulse Resp B/P (MAP) Pulse Ox O2 Delivery O2 Flow Rate FiO2 08/10/17 14:00 77 08/10/17 12:00 98.7 17 114/54 (74) 99 08/10/17 12:00 70 Intake and Output 08/10/17 08/10/17 08/11/17 08:00 16:00 00:00 Intake Total 3044 ml 200 ml Output Total 60 ml 4000 ml Balance 2984 ml -3800 ml Result Diagram: 08/10/17 0555 08/10/17 0555 Vascular Central Line Catheter Side: Right Location: Internal, Jugular (Vas cath) Assessment and Plan Assessment: (1) Congestive heart failure ICD Code: I50.9 - Heart failure, unspecified Status: Chronic (2) Anemia ICD Code: D64.9 - Anemia, unspecified Status: Chronic (3) Acute kidney insufficiency ICD Code: N28.9 - Disorder of kidney and ureter, unspecified Status: Chronic (4) Respiratory failure ICD Code: J96.90 - Respiratory failure, unspecified, unspecified whether with hypoxia or hypercapnia Status: Acute (5) CKD (chronic kidney disease) stage 3, GFR 30-59 ml/min ICD Code: N18.3 - Chronic kidney disease, stage 3 (moderate) Status: Chronic (6) Unresponsive ICD Code: R41.89 - Other symptoms and signs involving cognitive functions and awareness Status: Acute (7) Intracranial bleed ICD Code: I62.9 - Nontraumatic intracranial hemorrhage, unspecified Status: Acute (8) Hypertensive emergency ICD Code: I16.1 - Hypertensive emergency Status: Acute (9) Edema due to congestive heart failure ICD Code: I50.9 - Heart failure, unspecified Status: Chronic (10) Dyspnea ICD Code: R06.00 - Dyspnea, unspecified Status: Acute (11) Traumatic brain injury ICD Code: S06.9X9A - Unspecified intracranial injury with loss of consciousness of unspecified duration, initial encounter Status: Acute (12) Major neurocognitive disorder as late effect of traumatic brain injury without behavioral disturbance ICD Code: S06.9X9S - Unspecified intracranial injury with loss of consciousness of unspecified duration, sequela; F02.80 - Dementia in other diseases classified elsewhere without behavioral disturbance Status: Acute Plan EKWOK: 82-year-old male who sustained a fall. He fell off a ladder approximately 10 feet, striking his head. + LOC. Short period of CPR and then the patient woke up, confused with unequal pupils. GCS 13. Systolic blood pressure = 200. Patient is on Plavix. INJURIES: Temporal SAH RIGHT temporal SDH ?Aspiration PMHx: CHF, HTN, DM, CRF, HLD, PVD, Perforated appendix- sepsis (2 years ago) Procedures: 07/30: Intubated 07/30 - 08/05 [place] NEUROLOGICAL: -Temporal SAH, RIGHT temporal SDH Neurosurgery consulted Sedated and mechanically ventilated Propofol for sedation Daily sedation vacations Goal RASS score of -2 Serial neuro checks 08/04: CT Brain - stable 08/01: CT brain - stable 07/31: CT brain - increase L SDH. Increase R temporal hemorrhage 07/30 - 08/05: ICP bolt placement Seizure precautions PO Keppra BID HOB elevated 30 degrees Hypernatremia status - 144 CARDIOVASCULAR: Cardiology consulted Patient with history of CHF, HTN, HLD, PVD Continues with Cardene and Cardizem gtts- maxed out Lopressor 5 mg IV q6 hours Hydralazine 100 mg PO BID Hytrin 7 mg PO BID Catapres patch 0.3 mg Norvasc 10 mg PO QD Diuretics - Lasix 80 IV q 8H. 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: Critical care pondman 07/30: Intubated Likely aspirated overnight IV Abx: vanco Vent bundle CT chest today shows bilateral lower lobe consolidation Patient will need tracheostomy if family decides to continue with aggressive care Palliative care consulted to assist family with goals of care Juan J VAP protocol in place - Follow-up Labs tomorrow CXR PRN GASTROINTESTINAL: Not tolerating tube feeding Gastric residual > 100 cc OGT to LIWS TF on hold Patient will need PEG placement Bowel regimen Reglan 5 mg q 8h for increased residuals RENAL: Sack Keeper consulted Patient with history of chronic renal failure Strict I&O LASIX 80 IV q 8H. Diuril 500mg BID - per nephrology Hemodialysis per nephrology Hematuria with clots requiring PRN Dockery irrigation 08/01: US kidney - no hydronephrosis ENDOCRINE: Patient with history of DM SSI q 6h HEMATOLOGY: Patient with a history of chronic anemia Does not meet transfusion trigger this time 08/02: US Lower extremity study - NEGATIVE for DVT ID: Low-grade temps No leukocytosis Likely aspirated overnight IV Abx: Maxipime LINES: 07/30: ETT 07/30: OGT 08/05: R IJ vas cath 08/07: L SC TLC 07/30: [place] PROPHYLAXIS: VAP - protocol in place GI - Pepcid 10 mg BID DVT - Mechanical VTE with SCDs. SQ heparin held due to hematuria SKIN: Warm and dry Generalized edema Plan of care discussed with RN at bedside. TBI/MOF/geriatric patient poor prognosis,however family hopeful patient has advanced directives-,which need to be seen before proceeding with peg/trach Attestation Critical care time 32 minute Problem Qualifiers (1) Congestive heart failure: Qualified Codes: I50.9 - Heart failure, unspecified (2) Anemia: Qualified Codes: D64.9 - Anemia, unspecified (3) Respiratory failure: Qualified Codes: J96.00 - Acute respiratory failure, unspecified whether with hypoxia or hypercapnia (4) Dyspnea: Qualified Codes: R06.00 - Dyspnea, unspecified (5) Traumatic brain injury: Andrea Banks MD Aug 10, 2017 15:46
--- NOTE | 2017-08-10 16:15 | PD.CARD.PN ---
Subjective Subjective Remarks Heart rates and blood pressure somewhat controlled Off sedation Eyes open, moves extremities, not purposeful Objective Medications Current Medications Medications (Trade) Dose Ordered Sig/Juliet Route Start Time Stop Time Status Last Admin (NS Flush) 2 ml UNSCH PRN IV FLUSH 07/30/17 12:45 08/09/17 07:48 (Zofran Inj) 4 mg Q6H PRN IV PUSH 07/30/17 12:45 08/06/17 18:19 Miscellaneous Information 1 Q361D XX 07/30/17 12:45 (Chlorhexidine 2% Cloth) Taper DAILY@04 TOP 07/31/17 04:00 07/27/18 03:59 08/05/17 03:26 (Chlorhexidine 2% Cloth) 3 pack UNSCH PRN TOP 07/30/17 12:45 (Peridex 0.12% Liq) 15 ml BID@08,20 MT 07/30/17 20:00 08/10/17 08:46 (Pepcid) 10 mg BID PO 07/30/17 21:00 08/10/17 08:47 (Pravachol) 40 mg DAILY PO 07/31/17 09:00 08/10/17 08:47 (D50w (Vial) Inj) 50 ml UNSCH PRN IV PUSH 07/31/17 07:45 (Glucagon Inj) 1 mg UNSCH PRN OTHER 07/31/17 07:45 (Jackelyn-Colace) 1 tab BID PO 08/01/17 21:00 08/09/17 22:16 (Dulcolax Supp) 10 mg DAILY PRN RECTAL 08/01/17 16:15 (NovoLOG SUPPLEMENTAL SCALE) 1 Q6HR SQ 08/01/17 18:00 08/10/17 11:46 (Apresoline Inj) 10 mg Q4HR PRN IV PUSH 08/04/17 12:30 08/09/17 08:54 (Lasix Inj) 80 mg Q8HR IV PUSH 08/04/17 22:00 08/10/17 13:44 (Milk Of Magnesia Liq) 30 ml BID PO 08/05/17 09:00 08/06/17 07:56 (Reglan Inj) 5 mg Q8HR IV PUSH 08/05/17 14:00 08/10/17 13:45 (Heparin Inj) 5,000 units Q8HR SQ 08/05/17 14:00 Future hold 08/10/17 13:45 Sodium Chloride 1,000 ml @ 0 mls/hr Q0M PRN OTHER 08/05/17 13:51 Sodium Chloride 1,000 ml @ 200 mls/hr Q5H PRN IV 08/05/17 13:51 08/06/17 13:21 Sodium Chloride 1,000 ml @ 0 mls/hr Q0M PRN OTHER 08/05/17 13:51 Albumin Human 100 ml @ 60 mls/hr UNSCH PRN IV 08/05/17 14:00 08/10/17 09:14 (NS Flush) 5 ml UNSCH PRN IV FLUSH 08/05/17 14:00 (Heparin Inj) UNSCH PRN .XX 08/05/17 14:00 08/10/17 09:14 (Gentamicin Inj) 20 mg UNSCH PRN OTHER 08/05/17 14:00 08/10/17 09:14 (Zofran Inj) 4 mg UNSCH PRN IV PUSH 08/05/17 14:00 (Tylenol) 650 mg UNSCH PRN PO 08/05/17 14:00 (Benadryl) 25 mg UNSCH PRN PO 08/05/17 14:00 (Nitrostat Sl) 0.4 mg UNSCH PRN SL 08/05/17 14:00 (Catapres) 0.1 mg UNSCH PRN PO 08/05/17 14:00 08/08/17 01:57 (Gelfoam 12 Mm/7 Mm Top) 1 foam UNSCH PRN TOP 08/05/17 14:00 Nicardipine HCl 50 mg/Sodium Chloride 500 ml @ 50 mls/hr TITRATE PRN IV 08/06/17 00:15 08/09/17 18:14 (Albuterol Neb) 2.5 mg Q2HR NEB PRN NEB 08/06/17 09:45 (Norvasc) 10 mg DAILY PO 08/07/17 09:00 08/10/17 08:47 (Apresoline) 100 mg Q8HR PO 08/06/17 14:00 08/10/17 13:45 (Lactulose Liq) 30 ml QID PO 08/06/17 13:00 08/09/17 22:15 (Miralax) 17 gm BID NG 08/06/17 21:00 08/09/17 07:47 (Zyloprim) 100 mg DAILY PO 08/07/17 09:00 08/10/17 08:47 (Hytrin) 7 mg BID NG 08/06/17 13:30 08/10/17 09:14 (Lopressor Inj) 2.5 mg Q6H PRN IV PUSH 08/07/17 07:45 08/08/17 08:35 (Coreg) 12.5 mg Q12HR PO 08/08/17 09:00 08/10/17 08:47 (Diuril) 500 mg Q12H G-TUBE 08/09/17 03:15 08/10/17 13:45 (Cardizem) 90 mg Q6HR PO 08/09/17 12:00 08/10/17 11:46 (Duoneb Neb) 1 ampule Q6HR NEB NEB 08/09/17 16:00 08/10/17 15:40 (Catapres) 0.3 mg Q8HR PO 08/09/17 14:00 08/10/17 13:45 Miscellaneous Information 2 Q7D T-DERMAL 08/12/17 11:00 (Catapres-Tts 0.3 Mg Patch.7d) 2 patch Q7D T-DERMAL 08/09/17 12:00 08/09/17 11:13 Cefepime HCl 1000 mg/Sodium Chloride 100 ml @ 200 mls/hr Q24H IV 08/10/17 09:00 08/10/17 08:47 Vital Signs / I&O Vital Signs Date Time Temp Pulse Resp B/P (MAP) Pulse Ox O2 Delivery O2 Flow Rate FiO2 08/10/17 15:40 99 60 08/10/17 14:00 77 08/10/17 12:00 98.7 82 17 114/54 (74) 99 08/10/17 12:00 85 08/10/17 12:00 70 08/10/17 10:00 73 08/10/17 08:44 98 70 08/10/17 08:00 98.8 73 17 118/57 (77) 100 08/10/17 08:00 77 08/10/17 08:00 70 08/10/17 06:00 75 08/10/17 05:39 97 70 08/10/17 04:00 100 08/10/17 04:00 98.7 87 20 134/67 (89) 95 08/10/17 04:00 78 08/10/17 02:00 98 08/10/17 01:14 100 80 08/10/17 00:00 100 08/10/17 00:00 98.9 82 19 151/57 (88) 97 08/10/17 00:00 98 08/09/17 22:00 98 08/09/17 20:00 100 08/09/17 20:00 98 08/09/17 20:00 99.1 82 17 153/65 (94) 95 08/09/17 19:34 100 90 08/09/17 18:14 96 149/63 08/09/17 18:00 98 08/09/17 17:04 95 100 I/O 08/09/17 08/09/17 08/09/17 08/10/17 08/10/17 08/10/17 07:00 15:00 23:00 07:00 15:00 23:00 Intake Total 2354 ml 1075 ml 1187 ml 3044 ml 200 ml Output Total 280 ml 4350 ml 60 ml 4000 ml Balance 2074 ml 1075 ml -3163 ml 2984 ml -3800 ml IV Total 2354 ml 1075 ml 1100 ml 3044 ml 200 ml Tube Feeding 87 ml Output Urine Total 80 ml 100 ml 60 ml Stool Total 100 ml 200 ml Gastric Drainage Total 100 ml 50 ml Hemodialysis 4000 ml 4000 ml Physical Exam GENERAL: Intubated and sedated SKIN: Warm and dry. HEAD: Atraumatic. Normocephalic. EYES: Pupils equal and round. No scleral icterus. No injection or drainage. ENT: No nasal bleeding or discharge. Mucous membranes pink and moist. NECK: Trachea midline. No JVD. CARDIOVASCULAR: Regular rate and rhythm. RESPIRATORY: No accessory muscle use. Clear to auscultation. Breath sounds equal bilaterally. GASTROINTESTINAL: Abdomen soft, non-tender, nondistended. Hepatic and splenic margins not palpable. MUSCULOSKELETAL: Extremities without clubbing, cyanosis, or edema. No obvious deformities. NEUROLOGICAL: Unable to determine. ICP monitor in place, pressures 4-13 Laboratory Laboratory Tests Test 08/10/17 05:55 White Blood Count 14.5 TH/MM3 Red Blood Count 2.48 MIL/MM3 Hemoglobin 7.1 GM/DL Hematocrit 21.4 % Mean Corpuscular Volume 86.5 FL Mean Corpuscular Hemoglobin 28.5 PG Mean Corpuscular Hemoglobin Concent 32.9 % Red Cell Distribution Width 23.4 % Platelet Count 98 TH/MM3 Mean Platelet Volume 9.5 FL Neutrophils (%) (Auto) 87.7 % Lymphocytes (%) (Auto) 2.7 % Monocytes (%) (Auto) 9.4 % Eosinophils (%) (Auto) 0.1 % Basophils (%) (Auto) 0.1 % Neutrophils # (Auto) 12.7 TH/MM3 Lymphocytes # (Auto) 0.4 TH/MM3 Monocytes # (Auto) 1.4 TH/MM3 Eosinophils # (Auto) 0.0 TH/MM3 Basophils # (Auto) 0.0 TH/MM3 CBC Comment AUTO DIFF Differential Comment AUTO DIFF CONFIRMED Platelet Estimate LOW Platelet Morphology Comment NORMAL Ovalocytes 1+ Acanthocytes OCC Keratocytes OCC Blood Urea Nitrogen 43 MG/DL Creatinine 3.15 MG/DL Random Glucose 192 MG/DL Albumin 2.2 GM/DL Calcium Level 8.0 MG/DL Phosphorus Level 3.7 MG/DL Sodium Level 144 MEQ/L Potassium Level 3.3 MEQ/L Chloride Level 106 MEQ/L Carbon Dioxide Level 25.6 MEQ/L Anion Gap 12 MEQ/L Estimat Glomerular Filtration Rate 19 ML/MIN Assessment and Plan Problem List: (1) Major neurocognitive disorder as late effect of traumatic brain injury without behavioral disturbance ICD Codes: S06.9X9S - Unspecified intracranial injury with loss of consciousness of unspecified duration, sequela; F02.80 - Dementia in other diseases classified elsewhere without behavioral disturbance Status: Acute (2) Intracranial bleed ICD Codes: I62.9 - Nontraumatic intracranial hemorrhage, unspecified Status: Acute (3) Edema due to congestive heart failure ICD Codes: I50.9 - Heart failure, unspecified Status: Chronic (4) Hypertensive emergency ICD Codes: I16.1 - Hypertensive emergency Status: Acute (5) CKD (chronic kidney disease) stage 3, GFR 30-59 ml/min ICD Codes: N18.3 - Chronic kidney disease, stage 3 (moderate) Status: Chronic (6) Acute kidney insufficiency ICD Codes: N28.9 - Disorder of kidney and ureter, unspecified Status: Chronic Assessment and Plan 1) Mechanical fall leading in subdural/subarachnoid hemorrhage 2) Benign PVCs Normal function on echo Electrolytes normal range 3) ASA/Plavix stopped for ICH 4) Blood pressure elevated Currently on Cardene drip Hydralazine PRN Hytrin increased by Nephrology 5) Worsening renal function, started on HD 6) Afib with RVR Cardizem/Coreg Not an anti-coagulation candidate Aman Lind DO Aug 10, 2017 16:15
[2017-08-10] MEDS: BUMETANIDE 1 MG TAB NG SCH (17:45)
--- NOTE | 2017-08-10 18:17 | HHI.NPPN ---
Subjective History of Present Illness This patient is an 82-year-old male who unfortunately cannot provide any history secondary to head injury, intubated status on a ventilator. History obtained from records and from his daughter. Limited history available. Family patient has a history suggesting peripheral vascular disease, congestive heart failure, chronic lower extremity edema with dyspnea, chronic renal sufficiency?. According to the patient's daughter he was hospitalized back in 2013 at [facility]. Developed a ruptured appendix post colonoscopy subsequently developing acute renal failure and requiring laparotomy. According to the patient's daughter he was on dialysis temporarily. Not following up with a bird trapper routinely in recent times. They cannot recall name of his primary care physician currently also. Patient apparently fell short distance from a ladder and hit his head and subsequently has been diagnosed as having a subdural as well as subarachnoid hemorrhage. Creatinine was elevated at the time of presentation at 1.5 and chest x-ray showed evidence of congestive heart failure and the patient had a hemoglobin that was only 7.4. Echocardiogram performed July 31, 2017 revealed an ejection fraction of 50-55%. Patient's albumin on presentation his low with a low corrected calcium 7.8. Interval History Remains intubated and unresponsive to verbal questions and commands. Review of Systems General General Remarks Unable to obtain Objective Data Data 08/10/17 08/11/17 19:00 07:00 Intake Total 309 ml Output Total 4200 ml Balance -3891 ml IV Total 200 ml Tube Feeding 109 ml Output Urine Total 100 ml Stool Total 100 ml Hemodialysis 4000 ml # Bowel Movements 4 Vital Signs Date Time Temp Pulse Resp B/P (MAP) Pulse Ox O2 Delivery O2 Flow Rate FiO2 08/10/17 18:00 84 08/10/17 16:00 69 08/10/17 16:00 60 08/10/17 16:00 99.2 89 14 117/56 (76) 100 08/10/17 15:40 99 60 08/10/17 14:00 77 08/10/17 12:00 98.7 82 17 114/54 (74) 99 08/10/17 12:00 85 08/10/17 12:00 70 08/10/17 10:00 73 08/10/17 08:44 98 70 08/10/17 08:00 98.8 73 17 118/57 (77) 100 08/10/17 08:00 77 08/10/17 08:00 70 08/10/17 06:00 75 08/10/17 05:39 97 70 08/10/17 04:00 100 08/10/17 04:00 98.7 87 20 134/67 (89) 95 08/10/17 04:00 78 08/10/17 02:00 98 08/10/17 01:14 100 80 08/10/17 00:00 100 08/10/17 00:00 98.9 82 19 151/57 (88) 97 08/10/17 00:00 98 08/09/17 22:00 98 08/09/17 20:00 100 08/09/17 20:00 98 08/09/17 20:00 99.1 82 17 153/65 (94) 95 08/09/17 19:34 100 90 -: 08/10/17 0555 08/10/17 0555 Tubes & Lines: Vas-Cath Physical Exam General Appearance: Comfortable, Obese Appearance Remarks ET tube in place. Eyes Eye Exam: Sclera White Pulmonary Resp Exam: Breath Sounds Equal, No Distress, Decreased Bases Cardiology CV Exam: Regular, Normal Sinus Rhythm Gastrointestinal/Abdomen GI Exam: Non-Tender, Distended Extremeties Extremities Exam: Moderate Edema (significantly improved with dialysis.), Pitting Edema, Dependent Edema (diffuse edema involving all extremities, hips and dependent torso.) Neurologic Neuro Exam: Sedated Assessment/Plan Discussed Condition With: Son, Daughter, Relative Problem List: (1) Acute kidney insufficiency ICD Codes: N28.9 - Disorder of kidney and ureter, unspecified Status: Chronic Plan: Volume status has improved with daily dialysis. Fluid load will likely be reduced now that Cardene has been discontinued. Also discontinued IV Lasix and Diuril. Family apparently will be reevaluating the patient's condition with consultants to determine whether or not they want to continue with aggressive care based on prognosis. If the patient require dialysis long-term with no improvement in neurological state requiring PEG and trach and the family wishes continue same he will likely require institutionalization in a long-term care facility which could provide dialytic services most likely out of town. Medications should be adjusted for the patient's estimated GFR if clinically indicated. Avoid agents with significant potential for nephrotoxicity possible including NSAIDs for analgesia, iodine contrast agents. Gadolinium is contraindicated if the GFR is below 30. (2) CKD (chronic kidney disease) stage 3, GFR 30-59 ml/min ICD Codes: N18.3 - Chronic kidney disease, stage 3 (moderate) Status: Chronic Plan: Baseline renal function unknown. Patient currently has a history of chronic lower extremity edema and dyspnea. Unfortunately previous records not available but I suspect that the patient has a component of chronic CHF. 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 Also previous history of acute renal failure may have resulted in significant deterioration in his baseline renal function but those records are not available to me currently. (3) Congestive heart failure ICD Codes: I50.9 - Heart failure, unspecified Status: Chronic Plan: Continue furosemide and Diuril as ordered. Monitor response. Most likely has some degree of diastolic dysfunction as EF was reported as being 50-55%. (4) Edema due to congestive heart failure ICD Codes: I50.9 - Heart failure, unspecified Status: Chronic (5) Major neurocognitive disorder as late effect of traumatic brain injury without behavioral disturbance ICD Codes: S06.9X9S - Unspecified intracranial injury with loss of consciousness of unspecified duration, sequela; F02.80 - Dementia in other diseases classified elsewhere without behavioral disturbance Status: Acute (6) HTN (hypertension) ICD Codes: I10 - Essential (primary) hypertension Plan: On multiple classes of hypertensive medications. Improving slightly. Maxed on Cardene Will reassess after ultrafiltration today May need ACEi tomorrow. Problem Qualifiers (1) Congestive heart failure: Qualified Codes: I50.9 - Heart failure, unspecified Michell Chavez MD Aug 10, 2017 18:17
[2017-08-11] VITALS (17 sets, daily range): BP systolic 113–146; BP diastolic 53–65; PULSE 79–114; RESP 13–15; TEMP 98.3–99.2; O2SAT 93–100
[2017-08-11] MEDS: RESP: ALBUTEROL 2.5 MG/IPRATROPIUM 0.5 MG NEB (SCH) NEB ×4 (03:46→21:24)
[2017-08-11] MEDS: CHLORHEXIDINE GLUCONATE 2 % 1 PACK (2 CLOTHS) TOP SCH (04:00)
[2017-08-11] MEDS: HEPARIN SODIUM - SQ 10,000 UNITS/ML VIAL SQ SCH ×3 (05:19→21:41)
[2017-08-11] MEDS: METOCLOPRAMIDE HCL 10 MG/2 ML VIAL IV PUSH SCH ×3 (05:20→21:42)
[2017-08-11] MEDS: hydrALAZINE HCL 100 MG TAB PO SCH ×3 (05:20→21:42)
[2017-08-11] MEDS: DILTIAZEM HCL 90 MG TAB PO SCH ×3 (05:20→18:22)
[2017-08-11] MEDS: cloNIDine HCL 0.3 MG TAB PO SCH ×3 (05:21→21:41)
[2017-08-11] MEDS: INSULIN ASPART SUPPLEMENTAL SCALE SQ SCH ×3 (05:22→18:00)
[2017-08-11] MEDS: CEFEPIME INJ 1,000 MG in SODIUM CHLORIDE 0.9% INJ 100 ML IV SCH ×2 (07:32→21:41)
[2017-08-11] MEDS: CHLORHEXIDINE 0.12% (ORAL KIT) 15 ML CUP MT SCH ×2 (07:32→20:00)
[2017-08-11] MEDS: LACTULOSE SYRUP 20 GM/30 ML CUP PO SCH ×4 (07:33→21:00)
[2017-08-11] MEDS: PRAVASTATIN SOD 40 MG TAB PO SCH (07:33)
[2017-08-11] MEDS: ALLOPURINOL 100 MG TAB PO SCH (07:33)
[2017-08-11] MEDS: CARVEDILOL 12.5 MG TAB PO SCH ×2 (07:33→21:42)
[2017-08-11] MEDS: DOCUSATE SODIUM 50 MG/SENNA 8.6 MG TAB PO SCH ×2 (07:33→21:00)
[2017-08-11] MEDS: MAGNESIUM HYDROXIDE SUSP 30 ML CUP PO SCH ×2 (07:33→21:00)
[2017-08-11] MEDS: BUMETANIDE 1 MG TAB NG SCH ×2 (07:33→18:22)
[2017-08-11] MEDS: FAMOTIDINE 20 MG TAB PO SCH ×2 (07:33→21:41)
[2017-08-11] MEDS: TERAZOSIN HCL 1 MG CAP NG SCH ×2 (07:34→21:40)
--- NOTE | 2017-08-11 08:15 | HHI.PR ---
Neuropsych Emotional Emotional: UnabletoAssess: Emotional, Anxious/Fearful, Depressed/Sad, Hostile/ Resentful, Irritable/Angry/Frustrate, Labile, Constricted/Blunted Behavior Behavior: Intact: Impulsive/Agitated, Unable to Asses: Behavior, Coping/ Acceptance, Cooperative w/ Treatment, Motivation, Frustration Tolerance/[place], Suicidal/Homicidal Risk Cognitive Cognitive: Unable to Asses: Cognitive, Attention/Concentration, Confused/ Orientation, Insight/Awareness, Judgement/Problem-Solving, Memory Psychosocial Psychosocial: Intact: Psychosocial, Family/Other Adjustment, Realistic Expectation, Unable to Asses: Self-Esteem/Confidence Progress Notes/Response to Tx Contents of Sessions: Adjustment, Level of Consciousness Time with Patient: 15 minutes Premorbid psychological status Premorbid Cognitive, Emotional and Behavioral Status: Tenuous. The patient has high school years of education and is retired. The patient has no prior psychiatric difficulties, as described above. Substance abuse history is unremarkable. Behavioral Reactions of Patient and Family/Support System: Stable. The patient s family is experiencing ongoing issues of adjustment given the nature of the injury, and this aspect of recovery will require ongoing monitoring. Emotional/Behavioral Status of Patient and Family/Support System: Stable. Pertinent issues, if appropriate to this patients clinical care, are described in detail above. Maximizing acute care outcome It is recommended that the patient be monitored for emergent behavioral impulsivity as the medical condition evolves. This patients neuropathological challenges may limit his rehabilitation potential going forward, and these challenges will require specialized therapeutic skills to maximize outcome. Additionally, the patients family is experiencing ongoing issues of adjustment given the traumatic nature of the injury, and they may benefit from ongoing psychological assistance. At this point in the recovery process, the patient does not have cognitive capacity as the patient is unable to understand a situation and its likely consequences, nor is he able to manipulate information rationally. Cognitive capacity will be assessed throughout the recovery process. Anticipated Problems Ongoing areas of concern will include behavioral impulsivity, lack of insight and judgment, which is expected to improve with time and treatment. Presently , the patient is intubated and sedated. Treatment Plan This clinician will continue to follow with you throughout the course of this patients critical care treatment, and I will be available to meet with the patients family/support system to facilitate their understanding and the ongoing care of their family member. The goals of neuropsychological intervention shall be both educational and supportive to the family/support system as is deemed clinically appropriate. [facility] Level: II:General response-total assist Impression 82 y/o male s/p TBI 2T fall on 07/30/2017. Diagnosis: (1) Major neurocognitive disorder as late effect of traumatic brain injury without behavioral disturbance Status: Acute Progress Note Narrative PTD 12. There is no neurobehavioral improvement and this patient remains with no chance for a reasonable neurobehavioral recovery. Additional trends support that there is a hypoxic/anoxic component to his brain injury. There is no agitation or restlessness. He is around [place]. I will follow. Micah Sotelo PhD Aug 11, 2017 8:15 am
[2017-08-11] MEDS: POLYETHYLENE GLYCOL 17 GM PKG NG SCH ×2 (09:00→21:00)
--- NOTE | 2017-08-11 09:37 | HHI.CCPN ---
Subjective Remarks/Hospital Course 82 y/o man fell from height and sustained closed head trauma including left subdural hematoma and bilateral temporal parenchymal bleeds in areas of contusion. Admission CXR is impressive for pulmonary venous congestion. Home meds are not known at this time. 07/31: Enlarging left subdural hemorrhage and enlarging parenchymal contusions/ bleeds undoubtedly exacerbated by Plavix and aspirin use. CXR demonstrates bilateral effusions but improved pulmonary venous congestion after diuretic yesterday. Unfortunately a worsening azotemia has developed indicating he may not tolerate diuresis well. Follow renal function closely. I would have predicted chronic systolic heart failure after observing his effusions and ankles but his cardiac ECHO reveals reasonable biventricular function, probably EF > 50%. This may all be primary renal disease considering his reduced GFR and chronic anemia. 08/01: Remains sedated, orally intubated on mechanical ventilation 08/05: Remains sedated, orally intubated on mechanical ventilation. Renal function continued to decline of the last few days. Family wishes to proceed with hemodialysis after discussion with trauma team and nephrology. Subjective 08/06: Afebrile. Bradycardic. No acute cardiovascular incidents overnight. Continues on nicardipine drip at 7.5 mg an hour. Hemodialysis yesterday -3 L 08/07: Hypoxemic increasing oxygen requirement. Currently on 60% FiO2 10 of PEEP. Also developed atrial fibrillation with RVR, currently on Cardizem infusion at 15 mg/h with heart rate in 130s, Cardene infusion at 15 mg/h to control blood pressure. Additional 50 mg IV push of Cardizem ordered. Chest x- ray with bilateral basilar infiltrates left more than right. Increased yellow ET tube secretions. Start cefepime 1 gm IV q12 and vancomycin 1 gm IV x1 08/08: Remains intubated heavily sedated for ventilator synchrony. Antibiotics started yesterday for dense basilar consolidation bilaterally, WBC count slightly improved today. Intermittent episodes of nonsustained V. tach. Start scheduled Coreg 12.5 twice daily. Check magnesium level replace potassium. Hemodialysis yesterday with 3.5 L removed. Urine output approximately 500 mL in 24 hours 08/09: Remains critical. Maximized on Cardene infusion for blood pressure control. Heart rate is controlled with Cardizem drip start Cardizem 90 mg p.o. every 6 hours and wean to DC Cardizem infusion. Fever 100.6 with leukocytosis now 18.9. Repeat panculture. Off sedation for 24 hours now, has spontaneous eye opening and moves extremities spontaneously 08/10: Bilateral lower lobe infiltrates, cultures pending. ABX infusing. Lung volumes small. 08/11: Persistent problems with diffusing capacity requiring elevated peak but acceptable plateau pressures on ventilator.Grimaces to stimulation today as best response. Objective Vital Signs Date Time Temp Pulse Resp B/P (MAP) Pulse Ox O2 Delivery O2 Flow Rate FiO2 08/11/17 09:18 95 50 08/11/17 08:00 90 08/11/17 08:00 98.9 15 133/64 (87) Intake and Output 08/11/17 08/11/17 08/12/17 08:00 16:00 00:00 Intake Total 253 ml 100 ml Output Total 270 ml Balance -17 ml 100 ml Result Diagram: 08/10/17 0555 08/10/17 0555 Other Results Microbiology Date/Time Source Procedure Growth Status 08/09/17 10:16 Urine Catheterized Urine Urine Culture - Final NO GROWTH IN 48 HOURS. Complete Imaging Last Impressions Chest X-Ray 08/06/17 0600 Signed Impressions: Service Date/Time: Sunday, August 06, 2017 02:56 - CONCLUSION: 1. Slightly improved bibasilar consolidation and small effusions. 2. No change mild cardiomegaly. Ra Ballard MD Head CT 08/04/17 0000 Signed Impressions: Service Date/Time: July 04:37 - CONCLUSION: 1. Stable intracranial findings including bilateral subdural hematomas, intraventricular blood products, and bilateral temporal lobe hemorrhagic contusions. There is no midline shift or herniation. Ventricles are stable in size. 2. There is new fluid in the mastoid air cells and small air fluid levels bilaterally in the maxillary antra. These changes may be related to intubation. Ra Pulliam MD Lower Extremity Ultrasound 08/02/17 0000 Signed Impressions: Service Date/Time: Wednesday, August 02, 2017 10:40 - CONCLUSION: No evidence of DVT. Danyel Bear MD Renal Ultrasound 08/01/17 0000 Signed Impressions: Service Date/Time: Tuesday, August 01, 2017 14:46 - CONCLUSION: There is no hydronephrosis or stone. Bilateral pleural effusions.. Angel Brown MD FACR Shoulder X-Ray 07/31/17 0000 Signed Impressions: Service Date/Time: Monday, July 31, 2017 14:25 - CONCLUSION: No obvious fracture or dislocation. Degenerative changes. Prasanna Milan MD Cervical Spine CT 07/30/17 1202 Signed Impressions: Service Date/Time: Sunday, July 30, 2017 12:17 - CONCLUSION: 1. Negative for fracture. 2. Degenerative changes consisting of uncinate ridging with neural foramen encroachment without radiographically significant spinal stenosis. 3. Bilateral moderate sized pleural effusions seen on the lower slices through the upper lungs lungs. Angel Brown MD FACR Objective Remarks GENERAL: 82-year-old male currently orotracheally intubated. SKIN: Warm/dry. HEAD: Atraumatic. Normocephalic. EYES: Now right pupil 2 mm, left pupil 2 mm both reactive to light. Subconjunctival hemorrhage on the right side, resolving. ENT: No nasal bleeding or discharge Orotracheally intubated. NECK: Trachea midline. CARDIOVASCULAR: Atrial fibrillation on monitor, rate 90s. NL S1, S2. Distant tones. RESPIRATORY: Breath sounds equal bilaterally, with coarse rhonchi, diminished sounds at the bases. GASTROINTESTINAL: Abdomen soft. Active bowel sounds, no guarding. : Dockery catheter in place with bloody. MUSCULOSKELETAL: No obvious deformities. Possible lipodermatosclerosis bilateral lower extremities. Well perfused. NEUROLOGICAL: Off sedation, spontaneous eye opening, moving extremities spontaneously, does not follow commands. Side: Right Location: Internal, Jugular (Vas cath) A/P Assessment and Plan Neuro/Psych: TBI Bilateral subdural hematomas, intraventricular blood products, and bilateral temporal lobe hemorrhagic contusions Acute encephalopathy Currently off all continuos sedation. Spontaneously opening eyes and moving extremities, there is slight improvement in neuro exam CT brain admission revealed bilateral subdural hematomas, intraventricular hemorrhage in bilateral temporal contusions. Followed by neurosurgery/Dr. Horne. Status post removal of ICP 08/05 Levetiracetam 500 mg by tube twice daily seizure prophylaxis Acetaminophen 650 mg p.o. every 6 hours as needed fever Currently holding primidone 50 mg twice daily for essential tremor CV: Atrial fibrillation with RVR Nonsustained V. tach Uncontrolled hypertension Chronic diastolic heart failure Mild pulmonary hypertension PVD -stent LAD status post femoropopliteal Currently on nicardipine drip at 15 mg an hour to maintain systolic blood pressure less than 150 Cardizem drip -will wean to DC after starting Cardizem 90 mg every 6 hours Continue hydralazine 100 mg every 8 hours, amlodipine 10 mg daily, metoprolol 5 mg IV every 6 hours and terazosin 10 mg daily Scheduled p.o. Coreg 12.5 twice daily. Currently on clonidine patch. Will increase to 0.6 mg patch, add clonidine po 0.3 mg q8. Continue hydralazine 100 mg every 8 Continue pravastatin 40 mg daily for dyslipidemia. On simvastatin 20 mg daily home. Holding aspirin 325 daily and clopidogrel 75 daily in light of brain hemorrhage as above, cannot fully anticoagulate for a fib 2D echo revealed LVEF low normal with an estimated ejection fraction in the range of 50- 55%. Mild pulmonary. hypertension 40 mmHg Currently on furosemide 80 mg IV every 6 hours and Diuril 500 mg IV every 12 hours. Hold while on hemodialysis-defer to nephrology (Home medications include terazosin 10 mg daily, Toprol 50 mg twice daily, losartan 25 mg p.o. daily, Aldactone 25 mg daily, Lasix 80 mg twice daily) Rate control acceptable. Resp: Acute hypoxemic respiratory failure Healthcare associated pneumonia [facility] [place] /06/06/39. Start CPAP trials Ventilator bundle. Albuterol/ipratropium aerosols every 6 hours with albuterol aerosols every 2 hours as needed for dyspnea Continue broad-spectrum antibiotics with cefepime 1 g every 12, vancomycin 1 dose given 08/07 CT of the chest to evaluate effusion/infiltrate-shows bibasilar dense consolidation Probably will need increased mean airway pressure. GI: Hypoalbuminemia Constipation Gastroesophageal reflux disease Currently on Glucerna 1.5 and 35 cc an hour/recommendations per pharmacy Currently in famotidine for GI prophylaxis. On omeprazole 20 mg daily at home. Continue bowel regimen KUB showed normal bowel gas pattern : BPH Holding finasteride 5 mg daily and terazosin 10 mg daily. Resume clinically indicated The [place] catheter has been placed for accurate I's and O's in a critically ill patient with significant scrotal edema Endo: Gout Diabetes mellitus Sliding scale insulin with aspart insulin to maintain euglycemia Home medications include glipizide 5 mg twice daily on hold Allopurinol 100 mg daily Renal: Acute kidney failure HD per Dr. Chavez. Potassium replacement orders given Heme: Normocytic anemia Thrombocytopenia Monitor CBC daily. Follow trends On iron sulfate 160 mg daily at home ID: Severe sepsis Healthcare associated pneumonia UTI with staph aureus -Now with fever and worsening leukocytosis. Repeat sputum blood and urine cultures -Started on cefepime and single dose of vancomycin 08/07.Give 1 gm of vanc and pharmacy to dose - Lung infiltrates persist FEN: Hypernatremia Replace electrolytes as clinically indicated Access: -Right IJ hemodialysis catheter placed 08/05, left subclavian central line placement, 08/07/2017 Prophylaxis -GI -famotidine -DVT -SCD/heparin subcu Overall impression: Remains critically ill with TBI, hypoxemic respiratory failure, healthcare associated pneumonia, uncontrolled hypertension. Now with worsening sepsis fever. Neuro exam though is slightly improved but overall prognosis remains guarded at best. It is doubtful that this man will survive this hospitalization and return to any meaningful existence aside from a shelter facility. DNR status and possibly comfort care is highly recommended by the [employer] [facility]. Critical care 38 mins Serge Marcano MD Aug 11, 2017 09:37
--- NOTE | 2017-08-11 14:54 | HHI.NSPN ---
(Kathe Murphy) Note Status Status: Progress Note (Kathe Murphy) Interval History Interval History This is an 82-year-old gentleman who fell backwards off of a ladder approximately 10 feet. He underwent a brief round of CPR but was found to be spontaneously breathing so it was stopped patient was brought in the trauma bay hypertensive and confused he was intubated in the trauma bay. No seizure activity reported. No tongue biting. No incontinence of stool or urine. No tonic-clonic movements. He had unequal pupils and a coffee-ground emesis prior to intubation. He was upgraded to a level I trauma alert. He was resuscitated according to the ATLS protocol and full trauma workup was carried down. He was found to have right subarachnoid hemorrhage as well as subdural hematoma. He was given 2 units of platelets that for his platelet insufficiency due to Plavix. He was moving his extremities. Neurosurgical consultation was requested 07/31/17. Remains intubated and sedated. ICP monitor in place. A follow-up CT of the brain was obtained 08/01/17: intubated and sedated, ICPs below 10. 08/02/17: intubated, sedated. ICPs stable. f/u CT Brain yesterday showed slight increase in size of left subdural hematoma per Dr. Horne' review. decreasing renal function - nephrology consulted, also now with PVCs. 08/03/17: remains intubated, sedated on fentanyl and propofol drips. ICPs below 20. 08/04/17: ICPs stable overnight, f/u CT Brain this morning completed. intubated and sedated. 08/05/17: intubated and currently only minimally sedated, minimal eye opening when suctioned. 08/06 remains mechanically ventilated and sedated. Remains hypertensive despite numerous agents. Currently on second session of dialysis. 08/07. He vomited overnight and likely aspirated. Respiratory distress with increased Fio2 requirements. Maximal dose Cardene and Cardizem drips. Getting dialysis today 08/08: no change to his neuro exam. intubated, very minimal sedation - does not open eyes, withdraws to both feet. 08/09: intubated, off sedative drips. family in room, patient opening eyes, focusing today. for dialysis. 08/10: currently receiving dialysis, appears more drowsy today. EEG reports to moderate encephalopathy, no epileptiform activities. 08/11: opened eyes, tracked and looking around the room, remains intubated. (Kathe Murphy) Labs, Micro, & Vital Signs Results Date Time Temp Pulse Resp B/P (MAP) Pulse Ox O2 Delivery O2 Flow Rate FiO2 08/11/17 12:56 100 70 08/11/17 10:00 110 08/11/17 09:18 95 50 08/11/17 08:00 50 08/11/17 08:00 90 08/11/17 08:00 98.9 90 15 133/64 (87) 93 08/11/17 06:00 85 08/11/17 04:00 60 08/11/17 04:00 80 08/11/17 04:00 99.2 80 14 146/65 (92) 98 08/11/17 03:47 97 50 08/11/17 02:00 80 08/11/17 00:00 60 08/11/17 00:00 82 08/11/17 00:00 98.7 79 14 131/61 (84) 99 08/10/17 23:40 98 45 08/10/17 22:10 99 50 08/10/17 22:00 90 08/10/17 20:00 98.7 97 15 146/61 (89) 100 08/10/17 20:00 97 08/10/17 20:00 60 08/10/17 19:30 99 60 08/10/17 18:00 84 08/10/17 16:00 69 08/10/17 16:00 60 08/10/17 16:00 99.2 89 14 117/56 (76) 100 08/10/17 15:40 99 60 08/12/17 07:00 Intake Total 100 ml Balance 100 ml Constitutional Vital Signs Date Time Temp Pulse Resp B/P (MAP) Pulse Ox O2 Delivery O2 Flow Rate FiO2 08/11/17 12:56 100 70 08/11/17 10:00 110 08/11/17 09:18 95 50 08/11/17 08:00 50 08/11/17 08:00 90 08/11/17 08:00 98.9 90 15 133/64 (87) 93 08/11/17 06:00 85 08/11/17 04:00 60 08/11/17 04:00 80 08/11/17 04:00 99.2 80 14 146/65 (92) 98 08/11/17 03:47 97 50 08/11/17 02:00 80 08/11/17 00:00 60 08/11/17 00:00 82 08/11/17 00:00 98.7 79 14 131/61 (84) 99 08/10/17 23:40 98 45 08/10/17 22:10 99 50 08/10/17 22:00 90 08/10/17 20:00 98.7 97 15 146/61 (89) 100 08/10/17 20:00 97 08/10/17 20:00 60 08/10/17 19:30 99 60 08/10/17 18:00 84 08/10/17 16:00 69 08/10/17 16:00 60 08/10/17 16:00 99.2 89 14 117/56 (76) 100 08/10/17 15:40 99 60 08/12/17 07:00 Intake Total 100 ml Balance 100 ml (Kathe Murphy) Physical Exam Mr. Alonzo is intubated and without sedation. Opened eyes to light tactile stimulation, tracking and slightly focusing. Head: prior bolt site healing, steri-strips in place Cranial Nerves: Pupils right 2mm, left 3 mm round. Cervical Spine: soft, supple Motor: not following commands for testing, minimal withdraw both lower extremities to local stimuli, no response to pain in upper extremities Cerebellar: cannot be adequately assessed due to the patient's neurological condition. Heart: regular rate, rhythm Resp: clear, mechanically ventilated Skin: warm, dry (Kathe Murphy) Mr. Alonzo is intubated and without sedation. Opened eyes to light tactile stimulation, tracking and slightly focusing. Head: prior bolt site healing, steri-strips in place Cranial Nerves: Pupils right 2mm, left 3 mm round. Cervical Spine: soft, supple Motor: not following commands for testing, minimal withdraw both lower extremities to local stimuli, no response to pain in upper extremities Cerebellar: cannot be adequately assessed due to the patient's neurological condition. Heart: regular rate, rhythm Resp: clear, mechanically ventilated Skin: warm, dry (Les Horne MD) Medications Current Medications Current Medications Medications (Trade) Dose Ordered Sig/Juliet Route PRN Reason Start Time Stop Time Status Last Admin Dose Admin Sodium Chloride (NS Flush) 2 ml UNSCH PRN IV FLUSH FLUSH AFTER USING IV ACCESS 07/30/17 12:45 08/09/17 07:48 Ondansetron HCl (Zofran Inj) 4 mg Q6H PRN IV PUSH NAUSEA OR VOMITING 07/30/17 12:45 08/06/17 18:19 Miscellaneous Information 1 Q361D XX 07/30/17 12:45 Chlorhexidine Gluconate (Chlorhexidine 2% Cloth) Taper DAILY@04 TOP 07/31/17 04:00 07/27/18 03:59 08/05/17 03:26 Chlorhexidine Gluconate (Chlorhexidine 2% Cloth) 3 pack UNSCH PRN TOP HYGIENIC CARE 07/30/17 12:45 Chlorhexidine Gluconate (Peridex 0.12% Liq) 15 ml BID@08,20 MT 07/30/17 20:00 08/11/17 07:32 Famotidine (Pepcid) 10 mg BID PO 07/30/17 21:00 08/11/17 07:33 Pravastatin Sodium (Pravachol) 40 mg DAILY PO 07/31/17 09:00 08/11/17 07:33 Dextrose (D50w (Vial) Inj) 50 ml UNSCH PRN IV PUSH HYPOGLYCEMIA-SEE COMMENTS 07/31/17 07:45 Glucagon (Glucagon Inj) 1 mg UNSCH PRN OTHER HYPOGLYCEMIA-SEE COMMENTS 07/31/17 07:45 Senna/Docusate Sodium (Jackelyn-Colace) 1 tab BID PO 08/01/17 21:00 08/09/17 22:16 Bisacodyl (Dulcolax Supp) 10 mg DAILY PRN RECTAL Constipation 08/01/17 16:15 Insulin Aspart (NovoLOG SUPPLEMENTAL SCALE) 1 Q6HR SQ 08/01/17 18:00 08/11/17 12:48 Hydralazine HCl (Apresoline Inj) 10 mg Q4HR PRN IV PUSH SBP>160, DBP>90 08/04/17 12:30 08/09/17 08:54 Magnesium Hydroxide (Milk Of Mariya Jones) 30 ml BID PO 08/05/17 09:00 08/06/17 07:56 Metoclopramide HCl (Reglan Inj) 5 mg Q8HR IV PUSH 08/05/17 14:00 08/10/17 13:45 Heparin Sodium (Porcine) (Heparin Inj) 5,000 units Q8HR SQ 08/05/17 14:00 Future hold 08/11/17 05:19 Sodium Chloride 1,000 ml @ 0 mls/hr Q0M PRN OTHER For Prime & Rinse Back 08/05/17 13:51 Sodium Chloride 1,000 ml @ 200 mls/hr Q5H PRN IV WITH DIALYSIS 08/05/17 13:51 08/06/17 13:21 Sodium Chloride 1,000 ml @ 0 mls/hr Q0M PRN OTHER WITH DIALYSIS 08/05/17 13:51 Albumin Human 100 ml @ 60 mls/hr UNSCH PRN IV WITH DIALYSIS 08/05/17 14:00 08/10/17 09:14 Sodium Chloride (NS Flush) 5 ml UNSCH PRN IV FLUSH WITH DIALYSIS 08/05/17 14:00 Heparin Sodium (Porcine) (Heparin Inj) UNSCH PRN .XX WITH DIALYSIS 08/05/17 14:00 08/10/17 09:14 Gentamicin Sulfate (Gentamicin Inj) 20 mg UNSCH PRN OTHER WITH DIALYSIS 08/05/17 14:00 08/10/17 09:14 Ondansetron HCl (Zofran Inj) 4 mg UNSCH PRN IV PUSH WITH DIALYSIS 08/05/17 14:00 Acetaminophen (Tylenol) 650 mg UNSCH PRN PO for headach, pain, temp > 101F 08/05/17 14:00 Diphenhydramine HCl (Benadryl) 25 mg UNSCH PRN PO for hives/itching/anaphylaxis 08/05/17 14:00 Nitroglycerin (Nitrostat Sl) 0.4 mg UNSCH PRN SL CHEST PAIN 08/05/17 14:00 Clonidine (Catapres) 0.1 mg UNSCH PRN PO for BP > 180/100 X 2 readings 08/05/17 14:00 08/08/17 01:57 Gelatin (Gelfoam 12 Mm/7 Mm Top) 1 foam UNSCH PRN TOP SEE LABEL COMMENTS 08/05/17 14:00 Nicardipine HCl 50 mg/Sodium Chloride 500 ml @ 50 mls/hr TITRATE PRN IV Blood pressure management 08/06/17 00:15 08/09/17 18:14 Albuterol Sulfate (Albuterol Neb) 2.5 mg Q2HR NEB PRN NEB dyspnea 08/06/17 09:45 Amlodipine Besylate (Norvasc) 10 mg DAILY PO 08/07/17 09:00 08/11/17 07:33 Hydralazine HCl (Apresoline) 100 mg Q8HR PO 08/06/17 14:00 08/11/17 12:48 Lactulose (Lactulose Liq) 30 ml QID PO 08/06/17 13:00 08/09/17 22:15 Polyethylene Glycol (Miralax) 17 gm BID NG 08/06/17 21:00 08/09/17 07:47 Allopurinol (Zyloprim) 100 mg DAILY PO 08/07/17 09:00 08/11/17 07:33 Terazosin HCl (Hytrin) 7 mg BID NG 08/06/17 13:30 08/11/17 07:34 Metoprolol Tartrate (Lopressor Inj) 2.5 mg Q6H PRN IV PUSH HR >120 08/07/17 07:45 08/08/17 08:35 Carvedilol (Coreg) 12.5 mg Q12HR PO 08/08/17 09:00 08/11/17 07:33 Diltiazem HCl (Cardizem) 90 mg Q6HR PO 08/09/17 12:00 08/11/17 12:48 Albuterol/ Ipratropium (Duoneb Neb) 1 ampule Q6HR NEB NEB 08/09/17 16:00 08/11/17 09:17 Clonidine (Catapres) 0.3 mg Q8HR PO 08/09/17 14:00 08/11/17 12:48 Miscellaneous Information 2 Q7D T-DERMAL 08/12/17 11:00 Clonidine (Catapres-Tts 0.3 Mg Patch.7d) 2 patch Q7D T-DERMAL 08/09/17 12:00 08/09/17 11:13 Bumetanide (Bumetanide) 1 mg BID@ NG 08/10/17 18:00 08/11/17 07:33 Cefepime HCl 1000 mg/Sodium Chloride 100 ml @ 200 mls/hr Q12H IV 08/11/17 21:00 (Kathe Murphy) Current Medications Current Medications Ondansetron HCl (Zofran Inj) 4 mg STK-MED ONCE .ROUTE ; Start 07/30/17 at 11:55; Stop 07/30/17 at 11:56; Status DC Propofol 100 ml @ As Directed STK-MED ONCE .ROUTE ; Start 07/30/17 at 12:04; Stop 07/30/17 at 12:05; Status DC Nicardipine HCl (Cardene Inj) 25 mg STK-MED ONCE .ROUTE ; Start 07/30/17 at 12:08 ; Stop 07/30/17 at 12:09; Status DC Sodium Chloride 1,000 ml @ 60 mls/hr [id number] IV Last administered on 08/01/17at 08:45; Start 07/30/17 at 12:31; Stop 08/01/17 at 11:50; Status DC Sodium Chloride (NS Flush) 2 ml UNSCH PRN IV FLUSH FLUSH AFTER USING IV ACCESS Last administered on 08/09/17at 07:48; Start 07/30/17 at 12:45; Stop 08/12/17 at 21:17; Status DC Ondansetron HCl (Zofran Inj) 4 mg Q6H PRN IV PUSH NAUSEA OR VOMITING Last administered on 08/06/17at 18:19; Start 07/30/17 at 12:45; Stop 08/12/17 at 21:17 ; Status DC Multivitamins 10 ml/Thiamine HCl 100 mg/Folic Acid 1 mg/Sodium Chloride 511.2 ml @ 125 mls/hr Q24H IV Last administered on 08/01/17at 15:19; Start 07/30/17 at 15:00; Stop 08/01/17 at 19:06; Status DC Docusate Sodium (Colace) 100 mg BID PO Last administered on 08/01/17at 08:44; Start 07/30/17 at 21:00; Stop 08/01/17 at 16:11; Status DC Magnesium Hydroxide (Milk Of Magnesia Liq) 30 ml Q6H PRN PO CONSTIPATION; Start 07/30/17 at 12:45; Stop 08/01/17 at 16:11; Status DC Miscellaneous Information 1 Q361D XX ; Start 07/30/17 at 12:45; Stop 08/12/17 at 21:17; Status DC Chlorhexidine Gluconate (Chlorhexidine 2% Cloth) Taper DAILY@04 TOP Last administered on 08/12/17at 04:00; Start 07/31/17 at 04:00; Stop 08/12/17 at 21:17 ; Status DC Chlorhexidine Gluconate (Chlorhexidine 2% Cloth) 3 pack UNSCH PRN TOP HYGIENIC CARE; Start 07/30/17 at 12:45; Stop 08/12/17 at 21:17; Status DC Propofol 100 ml @ 0 mls/hr TITRATE PRN IV SEDATION; Start 07/30/17 at 13:00; Stop 07/30/17 at 13:30; Status DC Chlorhexidine Gluconate (Peridex 0.12% Liq) 15 ml BID@08,20 MT Last administered on 08/12/17at 09:31; Start 07/30/17 at 20:00; Stop 08/12/17 at 21:17 ; Status DC Propofol 100 ml @ 0 mls/hr TITRATE PRN IV SEDATION; Start 07/30/17 at 13:00; Stop 07/30/17 at 13:00; Status DC Fentanyl Citrate 250 ml TITRATE PRN IV SEDATION; Start 07/30/17 at 13:00; Stop 07/30/17 at 13:00; Status DC Fentanyl Citrate 250 ml TITRATE PRN IV SEDATION; Start 07/30/17 at 13:00; Stop 07/30/17 at 13:30; Status DC Albuterol/ Ipratropium (Duoneb Neb) 1 ampule Q6HR NEB NEB Last administered on 08/02/17at 20:40; Start 07/30/17 at 16:00; Stop 08/02/17 at 20:55; Status DC Diphtheria/ Tetanus/Acell Pertussis (Boostrix Inj) 0.5 ml STK-MED ONCE IM ; Start 07/30/17 at 12:58; Stop 07/30/17 at 12:59; Status DC Etomidate (Amidate Inj) 20 mg STK-MED ONCE .ROUTE ; Start 07/30/17 at 13:01; Stop 07/30/17 at 13:02; Status DC Succinylcholine Chloride (Quelicin Inj) 200 mg STK-MED ONCE .ROUTE ; Start at 13:01; Stop 07/30/17 at 13:02; Status DC Fentanyl Citrate 250 ml @ 5 mls/hr TITRATE PRN IV Sedation Last administered on 08/05/17at 22:20; Start 07/30/17 at 13:30; Stop 08/07/17 at 16:32; Status DC Propofol 100 ml @ 2.64 mls/hr TITRATE PRN IV SEDATION Last administered on 05/16at 06:03; Start 07/30/17 at 13:30; Stop 08/09/17 at 10:23; Status DC Famotidine (Pepcid) 10 mg BID PO Last administered on 08/12/17at 09:28; Start at 21:00; Stop 08/12/17 at 11:23; Status DC Nicardipine HCl 25 mg/Sodium Chloride 250 ml @ 50 mls/hr TITRATE PRN IV Blood pressure management Last administered on 08/05/17at 22:23; Start 07/30/17 at 16:15 ; Stop 08/06/17 at 00:11; Status DC Spironolactone (Aldactone) 25 mg DAILY PO Last administered on 08/01/17at 08:44; Start 07/31/17 at 09:00; Stop 08/01/17 at 09:54; Status DC Pravastatin Sodium (Pravachol) 40 mg DAILY PO Last administered on 08/12/17at 09 :28; Start 07/31/17 at 09:00; Stop 08/12/17 at 11:23; Status DC Metoprolol Tartrate (Lopressor) 25 mg Q12HR PO Last administered on 08/03/17at 20 :33; Start 07/31/17 at 09:00; Stop 08/04/17 at 09:36; Status DC Hydralazine HCl (Apresoline) 25 mg Q12HR PO Last administered on 07/31/17at 07:42 ; Start 07/31/17 at 09:00; Stop 07/31/17 at 09:00; Status DC Furosemide (Lasix Inj) 40 mg BID@18 IV PUSH Last administered on 08/02/17at 10 :33; Start 07/31/17 at 09:00; Stop 08/02/17 at 13:29; Status DC Dextrose (D50w (Vial) Inj) 50 ml UNSCH PRN IV PUSH HYPOGLYCEMIA-SEE COMMENTS; Start 07/31/17 at 07:45; Stop 08/12/17 at 21:17; Status DC Glucagon (Glucagon Inj) 1 mg UNSCH PRN OTHER HYPOGLYCEMIA-SEE COMMENTS; Start 07/31/17 at 07:45; Stop 08/12/17 at 21:17; Status DC Insulin Aspart (NovoLOG SUPPLEMENTAL SCALE) 1 Q6H SQ ; Start 07/31/17 at 07:45; Stop 08/01/17 at 17:31; Status DC Sodium Chloride 250 ml @ 15 mls/hr ONCE ONCE IV Last administered on at 10:55; Start 07/31/17 at 08:15; Stop 08/01/17 at 00:54; Status DC Terazosin HCl (Hytrin) 10 mg HS PO Last administered on 08/05/17at 20:12; Start 07/31/17 at 21:00; Stop 08/06/17 at 13:26; Status DC Hydralazine HCl (Apresoline) 100 mg Q12HR PO Last administered on 08/05/17at 20: 13; Start 07/31/17 at 09:00; Stop 08/06/17 at 09:42; Status DC Levetriacetam 500 mg/Sodium Chloride 105 ml @ 420 mls/hr Q12HR IV Last administered on 08/06/17at 07:57; Start 08/01/17 at 10:00; Stop 08/06/17 at 09:42 ; Status DC Dextrose 1,000 ml @ 42 mls/hr [id number] IV Last administered on 08/01/17at 13:09; Start 08/01/17 at 12:00; Stop 08/01/17 at 16:51; Status DC Chlorothiazide Sodium (Diuril Inj) 250 mg Q12H IV Last administered on at 13:15; Start 08/01/17 at 13:00; Stop 08/02/17 at 13:29; Status DC Clonidine (Catapres-Tts 0.2 Mg Patch.7d) 1 patch Q7D T-DERMAL ; Start 08/01/17 at 13:30; Stop 08/01/17 at 15:09; Status DC Clonidine (Catapres-Tts 0.2 Mg Patch.7d) 1 patch Q7D T-DERMAL ; Start 08/01/17 at 16:00; Stop 08/01/17 at 17:30; Status DC Miscellaneous Information 1 Q7D T-DERMAL ; Start 08/08/17 at 16:00; Stop at 16:00; Status DC Senna/Docusate Sodium (Jackelyn-Colace) 1 tab BID PO Last administered on at 09:28; Start 08/01/17 at 21:00; Stop 08/12/17 at 11:23; Status DC Lactulose (Lactulose Liq) 30 ml DAILY PO Last administered on 08/09/17at 07:47; Start 08/01/17 at 16:15; Stop 08/09/17 at 10:39; Status DC Bisacodyl (Dulcolax Supp) 10 mg DAILY PRN RECTAL Constipation; Start 08/01/17 at 16:15; Stop 08/12/17 at 21:17; Status DC Clonidine (Catapres-Tts 0.2 Mg Patch.7d) 1 patch Q7D T-DERMAL Last administered on 08/01/17at 20:31; Start 08/01/17 at 20:00; Stop 08/05/17 at 09:18; Status DC Miscellaneous Information 1 Q7D T-DERMAL ; Start 08/01/17 at 20:00; Stop 08/05/17 at 09:18; Status DC Insulin Aspart (NovoLOG SUPPLEMENTAL SCALE) 1 Q6HR SQ Last administered on 08/12at 00:00; Start 08/01/17 at 18:00; Stop 08/12/17 at 21:17; Status DC Sodium Bicarbonate (Sodium Bicarbonate 8.4% Inj) 50 meq UNSCH X1 IV Last administered on 08/02/17at 05:41; Start 08/02/17 at 05:45; Stop 08/02/17 at 08:20; Status DC Chlorothiazide Sodium (Diuril Inj) 500 mg Q12H IV Last administered on at 01:08; Start 08/03/17 at 01:00; Stop 08/09/17 at 10:41; Status DC Furosemide (Lasix Inj) 80 mg BID@,18 IV PUSH Last administered on 08/04/17at 18 :34; Start 08/02/17 at 18:00; Stop 08/04/17 at 19:28; Status DC Albuterol/ Ipratropium (Duoneb Neb) 1 ampule Q6HR NEB NEB Last administered on 08/06/17at 07:52; Start 08/02/17 at 22:00; Stop 08/06/17 at 09:35; Status DC Metoprolol Tartrate (Lopressor Inj) 5 mg Q6H IV PUSH Last administered on 09:24; Start 08/04/17 at 10:00; Stop 08/09/17 at 10:06; Status DC Hydralazine HCl (Apresoline Inj) 10 mg Q4HR PRN IV PUSH SBP>160, DBP>90 Last administered on 08/09/17at 08:54; Start 08/04/17 at 12:30; Stop 08/12/17 at 21:17 ; Status DC Furosemide (Lasix Inj) 80 mg Q8HR IV PUSH Last administered on 08/10/17at 13:44 ; Start 08/04/17 at 22:00; Stop 08/10/17 at 17:37; Status DC Sodium Bicarbonate (Sodium Bicarbonate 8.4% Inj) 100 meq STK-MED ONCE .ROUTE Last administered on 08/05/17 05:25; Start 08/05/17 at 05:25; Stop 08/05/17 at 05: 26; Status DC Bisacodyl (Dulcolax Supp) 10 mg ONCE ONCE RECTAL Last administered on at 08:03; Start 08/05/17 at 07:45; Stop 08/05/17 at 07:46; Status DC Magnesium Hydroxide (Milk Of Magnesia Liq) 30 ml BID PO Last administered on at 09:28; Start 08/05/17 at 09:00; Stop 08/12/17 at 11:23; Status DC Clonidine (Catapres-Tts 0.3 Mg Patch.7d) 1 patch Q7D T-DERMAL Last administered on 08/05/17at 11:49; Start 08/05/17 at 11:00; Stop 08/09/17 at 10:08; Status DC Metoclopramide HCl (Reglan Inj) 5 mg Q8HR IV PUSH Last administered on at 13:45; Start 08/05/17 at 14:00; Stop 08/12/17 at 21:17; Status DC Amlodipine Besylate (Norvasc) 5 mg DAILY PO Last administered on 08/05/17at 09:18 ; Start 08/05/17 at 09:15; Stop 08/06/17 at 09:42; Status DC Dextrose (D50w (Syr) Inj) 50 ml ONCE ONCE IV PUSH Last administered on at 10:44; Start 08/05/17 at 09:15; Stop 08/05/17 at 09:16; Status DC Insulin Human Regular (NovoLIN R INJ) 10 units ONCE ONCE IV PUSH Last administered on 08/05/17at 10:53; Start 08/05/17 at 09:15; Stop 08/05/17 at 09:16; Status DC Sodium Polystyrene Sulfonate (Kayexalate Liq) 15 gm Q2HR PO Last administered on 08/05/17at 15:02; Start 08/05/17 at 10:00; Stop 08/05/17 at 14:02; Status DC Heparin Sodium (Porcine) (Heparin Inj) 5,000 units Q8HR SQ Last administered on 08/11/17at 21:41; Start 08/05/17 at 14:00; Stop 08/12/17 at 21:17; Status DC Miscellaneous Information 1 Q7D T-DERMAL ; Start 08/12/17 at 11:00; Stop at 11:00; Status DC Sodium Chloride 1,000 ml @ 0 mls/hr Q0M PRN OTHER For Prime & Rinse Back; Start 08/05/17 at 13:51; Stop 08/12/17 at 21:17; Status DC Sodium Chloride 1,000 ml @ 200 mls/hr Q5H PRN IV WITH DIALYSIS Last administered on 08/06/17at 13:21; Start 08/05/17 at 13:51; Stop 08/12/17 at 21:17 ; Status DC Sodium Chloride 1,000 ml @ 0 mls/hr Q0M PRN OTHER WITH DIALYSIS; Start 08/05/17 at 13:51; Stop 08/12/17 at 21:17; Status DC Albumin Human 100 ml @ 60 mls/hr UNSCH PRN IV WITH DIALYSIS Last administered on 08/10/17at 09:14; Start 08/05/17 at 14:00; Stop 08/12/17 at 21:17; Status DC Sodium Chloride (NS Flush) 5 ml UNSCH PRN IV FLUSH WITH DIALYSIS; Start at 14:00; Stop 08/12/17 at 21:17; Status DC Heparin Sodium (Porcine) (Heparin Inj) UNSCH PRN .XX WITH DIALYSIS Last administered on 08/10/17at 09:14; Start 08/05/17 at 14:00; Stop 08/12/17 at 21:17 ; Status DC Gentamicin Sulfate (Gentamicin Inj) 20 mg UNSCH PRN OTHER WITH DIALYSIS Last administered on 08/10/17at 09:14; Start 08/05/17 at 14:00; Stop 08/12/17 at 21:17 ; Status DC Ondansetron HCl (Zofran Inj) 4 mg UNSCH PRN IV PUSH WITH DIALYSIS; Start at 14:00; Stop 08/12/17 at 21:17; Status DC Acetaminophen (Tylenol) 650 mg UNSCH PRN PO for headach, pain, temp > 101F Last administered on 08/11/17at 21:42; Start 08/05/17 at 14:00; Stop 08/12/17 at 21:17; Status DC Diphenhydramine HCl (Benadryl) 25 mg UNSCH PRN PO for hives/itching/anaphylaxis ; Start 08/05/17 at 14:00; Stop 08/12/17 at 11:24; Status DC Nitroglycerin (Nitrostat Sl) 0.4 mg UNSCH PRN SL CHEST PAIN; Start 08/05/17 at 14:00; Stop 08/12/17 at 21:17; Status DC Clonidine (Catapres) 0.1 mg UNSCH PRN PO for BP > 180/100 X 2 readings Last administered on 08/08/17at 01:57; Start 08/05/17 at 14:00; Stop 08/12/17 at 11:24 ; Status DC Gelatin (Gelfoam 12 Mm/7 Mm Top) 1 foam UNSCH PRN TOP SEE LABEL COMMENTS; Start 08/05/17 at 14:00; Stop 08/12/17 at 21:17; Status DC Heparin Sodium (Porcine) (Heparin Inj) 10,000 units NOW ONCE IV PUSH Last administered on 08/05/17at 17:10; Start 08/05/17 at 17:00; Stop 08/05/17 at 17:07; Status DC Nicardipine HCl 50 mg/Sodium Chloride 500 ml @ 50 mls/hr TITRATE PRN IV Blood pressure management Last administered on 08/09/17at 18:14; Start 08/06/17 at 00: 15; Stop 08/12/17 at 21:17; Status DC Albuterol/ Ipratropium (Duoneb Neb) 1 ampule Q6HR NEB NEB Last administered on 08/09/17at 08:58; Start 08/06/17 at 10:00; Stop 08/09/17 at 10:05; Status DC Albuterol Sulfate (Albuterol Neb) 2.5 mg Q2HR NEB PRN NEB dyspnea; Start at 09:45; Stop 08/12/17 at 21:17; Status DC Amlodipine Besylate (Norvasc) 10 mg DAILY PO Last administered on 08/12/17at 09: 28; Start 08/07/17 at 09:00; Stop 08/12/17 at 11:24; Status DC Hydralazine HCl (Apresoline) 100 mg Q8HR PO Last administered on 08/12/17at 06: 34; Start 08/06/17 at 14:00; Stop 08/12/17 at 21:17; Status DC Levetriacetam (Keppra Liq) 500 mg Q12HR NG Last administered on 08/08/17at 08: 33; Start 08/06/17 at 21:00; Stop 08/08/17 at 10:14; Status DC Lactulose (Lactulose Liq) 30 ml QID PO Last administered on 08/12/17at 09:28; Start 08/06/17 at 13:00; Stop 08/12/17 at 11:24; Status DC Polyethylene Glycol (Miralax) 17 gm BID NG Last administered on 08/09/17at 07:47 ; Start 08/06/17 at 21:00; Stop 08/12/17 at 11:24; Status DC Mineral Oil (Kondremul Liq) 30 ml ONCE ONCE PO Last administered on 08/06/17at 14:44; Start 08/06/17 at 09:45; Stop 08/06/17 at 10:42; Status DC Glycerin (Glycerin Adult Supp) 2 gm ONCE ONCE RECTAL Last administered on 08/06at 14:44; Start 08/06/17 at 09:45; Stop 08/06/17 at 10:40; Status DC Methylnaltrexone [place] (Relistor Inj) 12 mg ONCE ONCE SQ Last administered on 08/06/17at 14:44; Start 08/06/17 at 09:45; Stop 08/06/17 at 10:42; Status DC Allopurinol (Zyloprim) 100 mg DAILY PO Last administered on 08/12/17at 09:28; Start 08/07/17 at 09:00; Stop 08/12/17 at 11:24; Status DC Terazosin HCl (Hytrin) 7 mg BID NG Last administered on 08/12/17at 09:27; Start 08/06/17 at 13:30; Stop 08/12/17 at 11:24; Status DC Diltiazem HCl (Cardizem Inj) 20 mg ONCE ONCE IV PUSH ; Start 08/06/17 at 22:45 ; Stop 08/06/17 at 22:46; Status Cancel Diltiazem HCl 125 mg/Sodium Chloride 125 ml @ 5 mls/hr TITRATE PRN IV Tachycardia Last administered on 08/09/17at 08:03; Start 08/06/17 at 22:45; Stop 08/09/17 at 10:13; Status DC Diltiazem HCl (Cardizem Inj) 20 mg ONCE ONCE IV Last administered on at 23:25; Start 08/06/17 at 23:30; Stop 08/06/17 at 23:31; Status DC Mannitol 100 ml @ As Directed STK-MED ONCE .ROUTE ; Start 08/07/17 at 07:16; Stop 08/07/17 at 07:17; Status DC Sodium Bicarbonate (Sodium Bicarbonate 8.4% Inj) 50 meq NOW ONCE IV Last administered on 08/07/17at 07:51; Start 08/07/17 at 07:45; Stop 08/07/17 at 07:46 ; Status DC Diltiazem HCl (Cardizem Inj) 25 mg STK-MED ONCE .ROUTE Last administered on 04/16at 07:51; Start 08/07/17 at 07:36; Stop 08/07/17 at 07:37; Status DC Sodium Bicarbonate (Sodium Bicarbonate 8.4% Inj) 50 meq ONCE ONCE IV PUSH ; Start 08/07/17 at 08:30; Stop 08/07/17 at 08:31; Status DC Metoprolol Tartrate (Lopressor Inj) 2.5 mg Q6H PRN IV PUSH HR >120 Last administered on 08/08/17at 08:35; Start 08/07/17 at 07:45; Stop 08/12/17 at 11:24 ; Status DC Cefepime HCl 1000 mg/Sodium Chloride 100 ml @ 200 mls/hr Q12H IV Last administered on 08/09/17at 09:24; Start 08/07/17 at 10:00; Stop 08/09/17 at 14:53 ; Status DC Vancomycin HCl 1000 mg/Sodium Chloride 250 ml @ 250 mls/hr ONCE ONCE IV Last administered on 08/07/17at 10:34; Start 08/07/17 at 09:00; Stop 08/07/17 at 09:59 ; Status DC Diltiazem HCl (Cardizem Inj) 15 mg ONCE ONCE IV ; Start 08/07/17 at 08:30; Stop 08/07/17 at 08:31; Status DC Carvedilol (Coreg) 12.5 mg Q12HR PO Last administered on 08/12/17at 09:28; Start 08/08/17 at 09:00; Stop 08/12/17 at 11:24; Status DC Potassium Chloride 100 ml @ 50 mls/hr NOW ONCE IV Last administered on at 11:54; Start 08/08/17 at 11:00; Stop 08/08/17 at 12:59; Status DC Chlorothiazide (Diuril) 500 mg Q12H G-TUBE Last administered on 08/10/17at 13:45 ; Start 08/09/17 at 03:15; Stop 08/10/17 at 17:37; Status DC Potassium Chloride (KCl) 20 meq NOW ONCE PO Last administered on 08/09/17at 09: 24; Start 08/09/17 at 09:30; Stop 08/09/17 at 09:31; Status DC Potassium Chloride 100 ml @ 25 mls/hr ONCE ONCE IV Last administered on at 09:24; Start 08/09/17 at 09:30; Stop 08/09/17 at 13:29; Status DC Diltiazem HCl (Cardizem) 90 mg Q6HR PO Last administered on 08/12/17at 06:34; Start 08/09/17 at 12:00; Stop 08/12/17 at 11:24; Status DC Albuterol/ Ipratropium (Duoneb Neb) 1 ampule Q6HR NEB NEB Last administered on 08/12/17at 08:52; Start 08/09/17 at 16:00; Stop 08/12/17 at 21:17; Status DC Clonidine (Catapres) 0.3 mg Q8HR PO Last administered on 08/12/17at 06:34; Start 08/09/17 at 14:00; Stop 08/12/17 at 11:24; Status DC Miscellaneous Information 2 Q7D T-DERMAL ; Start 08/12/17 at 11:00; Stop at 21:17; Status DC Clonidine (Catapres-Tts 0.3 Mg Patch.7d) 2 patch Q7D T-DERMAL Last administered on 08/09/17at 11:13; Start 08/09/17 at 12:00; Stop 08/12/17 at 21:17 ; Status DC Vancomycin HCl 1000 mg/Sodium Chloride 250 ml @ 250 mls/hr ONCE ONCE IV Last administered on 08/09/17at 11:32; Start 08/09/17 at 11:00; Stop 08/09/17 at 11:59 ; Status DC Pharmacy Profile Note 0 ml @ 0 mls/hr UNSCH OTHER ; Start 08/09/17 at 10:30; Stop 08/10/17 at 08:13; Status DC Cefepime HCl 1000 mg/Sodium Chloride 100 ml @ 200 mls/hr Q24H IV Last administered on 08/11/17at 07:32; Start 08/10/17 at 09:00; Stop 08/11/17 at 10:03 ; Status DC Bumetanide (Bumetanide) 1 mg BID@09,18 NG Last administered on 08/12/17at 09:27 ; Start 08/10/17 at 18:00; Stop 08/12/17 at 11:24; Status DC Cefepime HCl 1000 mg/Sodium Chloride 100 ml @ 200 mls/hr Q12H IV Last administered on 08/12/17at 09:28; Start 08/11/17 at 21:00; Stop 08/12/17 at 21:17 ; Status DC Vancomycin HCl 1000 mg/Sodium Chloride 250 ml @ 250 mls/hr ONCE ONCE IV Last administered on 08/11/17at 15:57; Start 08/11/17 at 15:45; Stop 08/11/17 at 16:44 ; Status DC Hydromorphone HCl (Dilaudid Pf Inj) 1 mg ONCE ONCE IV PUSH Last administered on 08/12/17at 12:17; Start 08/12/17 at 11:30; Stop 08/12/17 at 11:49; Status DC Lorazepam (Ativan Inj) 2 mg ONCE ONCE IV PUSH Last administered on 08/12/17at 12:20; Start 08/12/17 at 11:30; Stop 08/12/17 at 11:49; Status DC Hyoscyamine Sulfate (Levsin Inj) 0.25 mg ONCE ONCE IV PUSH Last administered on 08/12/17at 11:30; Start 08/12/17 at 11:30; Stop 08/12/17 at 11:49; Status DC Hydromorphone HCl (Dilaudid Pf Inj) 0.75 mg ONCE ONCE IV PUSH Last administered on 08/12/17at 15:34; Start 08/12/17 at 11:45; Stop 08/12/17 at 11:49 ; Status DC Lorazepam (Ativan Inj) 2 mg ONCE ONCE IV PUSH ; Start 08/12/17 at 11:45; Stop 08/12/17 at 11:49; Status DC Hydromorphone HCl (Dilaudid Pf Inj) 0.75 mg Q30M PRN IV PUSH SEE LABEL COMMENTS Last administered on 08/12/17at 15:32; Start 08/12/17 at 12:00; Stop at 21:17; Status DC Hydromorphone HCl (Dilaudid Pf Inj) 1 mg Q30M PRN IV PUSH SEE LABEL COMMENTS; Start 08/12/17 at 12:00; Stop 08/12/17 at 21:17; Status DC Lorazepam (Ativan Inj) 1 mg Q4HR IV PUSH Last administered on 08/12/17at 13:45; Start 08/12/17 at 12:00; Stop 08/12/17 at 21:17; Status DC Lorazepam (Ativan Inj) 1 mg Q1H PRN IV PUSH SEE LABEL COMMENTS Last administered on 08/12/17at 16:25; Start 08/12/17 at 12:00; Stop 08/12/17 at 21:17 ; Status DC Lorazepam (Ativan Inj) 2 mg Q1H PRN IV PUSH SEE LABEL COMMENTS; Start 08/12/17 at 12:00; Stop 08/12/17 at 21:17; Status DC Lorazepam (Ativan Inj) 2 mg Q15M PRN IV PUSH SEIZURES; Start 08/12/17 at 12:00 ; Stop 08/12/17 at 21:17; Status DC Hyoscyamine Sulfate (Levsin Inj) 0.25 mg Q4H PRN IV PUSH SECRETIONS; Start at 12:00; Stop 08/12/17 at 21:17; Status DC (Les Horne MD) Medical Decision Making MDM Remarks 82-year-old gentleman who fell backwards off of a ladder approximately 10 feet TBI, s/p placement of intracranial pressure monitor with stable ICPs CT Brain 07/31/17: increase in the size of the left subdural hematoma. Stable right subdural hematoma. Increase in size of the right temporal tip hematoma. Stable size left temporal hematoma 08/02/27: Stable intraparenchymal, subdural, and intraventricular hemorrhage. No midline shift or new sites of hemorrhage. 08/04/17 reports Stable intracranial findings including bilateral subdural hematomas, intraventricular blood products, and bilateral temporal lobe hemorrhagic contusions There is no midline shift or herniation. Ventricles are stable in size. neuro exam improving - off sedatives, opening eyes and focusing from 08/09/17, however no medical improvement overall in his kidney function (Kathe Murphy) Plan Plan Remarks cont current care cont serial neuro checks and f/u neuro exam cont mgt per trauma and critical care Dr. Horne dw daughter in room (Kathe Murphy) Attending Statement Continue neuro checks. I ordered a follow up EEG. Continue Dialysis, still in critical condition. His pulmonary condition has deteriorated Pulmonary. Continue full mechanical ventilation in Assist control mode of ventilation aggressive pulmonary toilette, nasotracheal suction, and breathing treatments with nebulizers. Daily PT and OT Renal. monitor closely urine output, BUN and creatinine Endocrine.Monitor serial Acu checks and SSI as needed in detail ID monitor for signs of infection Protonix for stress ulcer prophylaxis Gilbert hose and SCD's for DVT prophylaxis Further recommendations will be provided depending on the patient's clinical evaluation and follow up studies The exam, history, and the medical decision-making described in the above note were completed with the assistance of the mid-level provider. I reviewed and agree with the findings presented. I attest that I had a [id number] encounter with the patient on the same day, and personally performed and documented my assessment and findings in the medical record. (Les Horne MD) Kateh Murphy Aug 11, 2017 14:54 Les Horne MD Aug 15, 2017 10:43
--- NOTE | 2017-08-11 15:10 | HHI.PR ---
Subjective Remarks In view of no significant improvement in neurological status and apparent poor prognosis for significant neurological recovery from records I reviewed the family has decided to discontinue dialysis and have opted for comfort care. I will sign off at this time. Thanks. Objective Vital Signs Date Time Temp Pulse Resp B/P (MAP) Pulse Ox O2 Delivery O2 Flow Rate FiO2 08/11/17 12:56 100 70 08/11/17 10:00 110 08/11/17 09:18 95 50 08/11/17 08:00 50 08/11/17 08:00 90 08/11/17 08:00 98.9 90 15 133/64 (87) 93 08/11/17 06:00 85 08/11/17 04:00 60 08/11/17 04:00 80 08/11/17 04:00 99.2 80 14 146/65 (92) 98 08/11/17 03:47 97 50 08/11/17 02:00 80 08/11/17 00:00 60 08/11/17 00:00 82 08/11/17 00:00 98.7 79 14 131/61 (84) 99 08/10/17 23:40 98 45 08/10/17 22:10 99 50 08/10/17 22:00 90 08/10/17 20:00 98.7 97 15 146/61 (89) 100 08/10/17 20:00 97 08/10/17 20:00 60 08/10/17 19:30 99 60 08/10/17 18:00 84 08/10/17 16:00 69 08/10/17 16:00 60 08/10/17 16:00 99.2 89 14 117/56 (76) 100 08/10/17 15:40 99 60 I/O 08/10/17 08/10/17 08/10/17 08/11/17 08/11/17 08/11/17 07:00 15:00 23:00 07:00 15:00 23:00 Intake Total 3044 ml 200 ml 109 ml 253 ml 100 ml Output Total 60 ml 4000 ml 200 ml 270 ml Balance 2984 ml -3800 ml -91 ml -17 ml 100 ml IV Total 3044 ml 200 ml 100 ml Tube Feeding 109 ml 133 ml Tube Irrigant 120 ml Output Urine Total 60 ml 100 ml 70 ml Stool Total 100 ml 200 ml Hemodialysis 4000 ml # Bowel Movements 4 Result Diagram: 08/10/17 0555 08/10/17 0555 Michell Chavez MD Aug 11, 2017 15:10
--- NOTE | 2017-08-11 15:43 | HHI.HCPN ---
Reason for visit a. To assist with evaluation and management of symptoms including: pain, dyspnea, encephalopathy b. To assist medical decision maker(s) with: better understanding of current medical conditions; weighing benefits/burdens of medical treatment options; making medical treatment decisions. . Subjective/Interval History Since seen today for follow-up on comfort, goals. Notified by nursing prior to my arrival to unit at family called to request meeting today with providers to discuss treatment options and goals. Patient remains on mechanical vent. Sedation has been off- no significant change to neuro status. Increase in vent settings, fio2 70%. 08/09 no growth to date. Family has requested no hemodialysis today or tomorrow- they have informed nursing that they will plan to remove lifesupport and transition to comfort focus tomorrow. Patient examined in room nurse, nimo Zelaya present. Minimally responsive-- withdraw to pain on lower extremities, no response from uppers. No eye opening to stimuli. No over-breathing on ventilator during my stimulation. Met with daughter Nathalie at length at bedside, sister Dee and patient mother on phone during part of this conversation. They indicate they have been reviewing patient living will and he would not want to continue artificial measures, they wish to withdraw life support and transition to comfort tomorrow, probable around 11am. Review anticipatory guidance. Review documents to sign. Family indicates is primary HCS, dtr Danielle is second. indicates she does not want to sign, and defers to children.Daughter Dee will sign exhibits tomorrow. d/w critical care, d/w nursing, d/w trauma attending. Exhibits signed, in chart , awaiting family signature. Copies of written advanced directives, designation of healthcare surrogate form , have not yet been provided by the family. Per [place] statutes, in the absence of written advanced directives healthcare proxy decision making falls to the patient's . If she is unable to fulfill this role, then healthcare proxy decision making. The majority of the patient's 4 adult children.(Prior interactions with have noted that she appears to have cognitive impairments and may not be able to fully participate in decision-making) . . Advance Directives Advance Directive Specifics Documented care wishes: Patient reportedly has completed written advanced directives. Son, Darryn, will bring copies of documentation to the hospital tomorrow 08/04/2017 so that copies can be placed in the patient's chart and scanned into the EMR. . Significant change in goals: They do NOT wish to proceed w trach/PEG. , children request to withdraw ventilator, transition to comfort TUESDAY, around 1130 am. . Objective Vital Signs Date Time Temp Pulse Resp B/P (MAP) Pulse Ox O2 Delivery O2 Flow Rate FiO2 08/11/17 12:56 100 70 08/11/17 10:00 110 08/11/17 09:18 95 50 08/11/17 08:00 50 08/11/17 08:00 90 08/11/17 08:00 98.9 90 15 133/64 (87) 93 08/11/17 06:00 85 08/11/17 04:00 60 08/11/17 04:00 80 08/11/17 04:00 99.2 80 14 146/65 (92) 98 08/11/17 03:47 97 50 08/11/17 02:00 80 08/11/17 00:00 60 08/11/17 00:00 82 08/11/17 00:00 98.7 79 14 131/61 (84) 99 08/10/17 23:40 98 45 08/10/17 22:10 99 50 08/10/17 22:00 90 08/10/17 20:00 98.7 97 15 146/61 (89) 100 08/10/17 20:00 97 08/10/17 20:00 60 08/10/17 19:30 99 60 08/10/17 18:00 84 08/10/17 16:00 69 08/10/17 16:00 60 08/10/17 16:00 99.2 89 14 117/56 (76) 100 08/10/17 15:40 99 60 Intake & Output 08/11/17 08/11/17 07:00 19:00 Intake Total 253 ml 100 ml Output Total 270 ml Balance -17 ml 100 ml IV Total 100 ml Tube Feeding 133 ml Tube Irrigant 120 ml Output Urine Total 70 ml Stool Total 200 ml Physical Exam CONSTITUTIONAL/GENERAL: This is an adequately nourished elderly, male patient intubated on mechanical ventilation TUBES/LINES/DRAINS: PIV 3, central and left subclavian, hemodialysis catheter right IJ ,Dockery catheter, ETT, OGT SKIN: No jaundice, rashes, or lesions. Skin warm/dry HEAD: Atraumatic. Normocephalic. EYES: Pupils left greater than right 3 mm left, 2 mm right, questionable reaction to light. No scleral icterus. No injection or drainage. Fundi not examined. CARDIOVASCULAR: Irregularly irregular without murmur. Peripheral pulses symmetric-faint. 3+Generalized edema, especially to lower extremities RESPIRATORY/CHEST: Intubated on mechanical ventilation. Increased upper airway secretions GASTROINTESTINAL: Abdomen soft, round, no apparent tenderness, nondistended. Bowel sounds normoactive. Tube feed infusing via OG. GENITOURINARY: Without palpable bladder distension. Dockery catheter in place with minimal urine output-dark brown in color NEUROLOGICAL: Minimally responsive during exam. Slight eye opening to pain stimuli to lower extremities. His withdrawals feet to pain/light touch does not follow commands. No withdrawal to upper extremity pain stimuli. Does not keep eyes open, no tracking of examiner. PSYCHIATRIC: Unable to assess given clinical condition. . Diagnostic Tests Laboratory Laboratory Tests Test 08/09/17 05:00 08/10/17 05:55 White Blood Count 18.9 TH/MM3 (4.0-11.0) 14.5 TH/MM3 (4.0-11.0) Red Blood Count 2.88 MIL/MM3 (4.50-5.90) 2.48 MIL/MM3 (4.50-5.90) Hemoglobin 8.3 GM/DL (13.0-17.0) 7.1 GM/DL (13.0-17.0) Hematocrit 24.7 % (39.0-51.0) 21.4 % (39.0-51.0) Mean Corpuscular Volume 85.6 FL (80.0-100.0) 86.5 FL (80.0-100.0) Mean Corpuscular Hemoglobin 28.9 PG (27.0-34.0) 28.5 PG (27.0-34.0) Mean Corpuscular Hemoglobin Concent 33.8 % (32.0-36.0) 32.9 % (32.0-36.0) Red Cell Distribution Width 23.8 % (11.6-17.2) 23.4 % (11.6-17.2) Platelet Count 112 TH/MM3 (150-450) 98 TH/MM3 (150-450) Mean Platelet Volume 10.1 FL (7.0-11.0) 9.5 FL (7.0-11.0) Neutrophils (%) (Auto) 88.9 % (16.0-70.0) 87.7 % (16.0-70.0) Lymphocytes (%) (Auto) 2.7 % (9.0-44.0) 2.7 % (9.0-44.0) Monocytes (%) (Auto) 7.7 % (0.0-8.0) 9.4 % (0.0-8.0) Eosinophils (%) (Auto) 0.5 % (0.0-4.0) 0.1 % (0.0-4.0) Basophils (%) (Auto) 0.2 % (0.0-2.0) 0.1 % (0.0-2.0) Neutrophils # (Auto) 16.8 TH/MM3 (1.8-7.7) 12.7 TH/MM3 (1.8-7.7) Lymphocytes # (Auto) 0.5 TH/MM3 (1.0-4.8) 0.4 TH/MM3 (1.0-4.8) Monocytes # (Auto) 1.4 TH/MM3 (0-0.9) 1.4 TH/MM3 (0-0.9) Eosinophils # (Auto) 0.1 TH/MM3 (0-0.4) 0.0 TH/MM3 (0-0.4) Basophils # (Auto) 0.0 TH/MM3 (0-0.2) 0.0 TH/MM3 (0-0.2) CBC Comment DIFF FINAL AUTO DIFF Differential Comment AUTO DIFF CONFIRMED Blood Urea Nitrogen 30 MG/DL (7-18) 43 MG/DL (7-18) Creatinine 3.00 MG/DL (0.60-1.30) 3.15 MG/DL (0.60-1.30) Random Glucose 185 MG/DL (74-106) 192 MG/DL (74-106) Calcium Level 8.6 MG/DL (8.5-10.1) 8.0 MG/DL (8.5-10.1) Sodium Level 141 MEQ/L (136-145) 144 MEQ/L (136-145) Potassium Level 2.8 MEQ/L (3.5-5.1) 3.3 MEQ/L (3.5-5.1) Chloride Level 101 MEQ/L (98-107) 106 MEQ/L (98-107) Carbon Dioxide Level 19.8 MEQ/L (21.0-32.0) 25.6 MEQ/L (21.0-32.0) Anion Gap 20 MEQ/L (5-15) 12 MEQ/L (5-15) Estimat Glomerular Filtration Rate 20 ML/MIN (>89) 19 ML/MIN (>89) Platelet Estimate LOW (NORMAL) Platelet Morphology Comment NORMAL (NORMAL) Ovalocytes 1+ (NORMAL) Acanthocytes OCC (NORMAL) Keratocytes OCC (NORMAL) Albumin 2.2 GM/DL (3.4-5.0) Phosphorus Level 3.7 MG/DL (2.5-4.9) Result Diagram: 08/10/17 0555 08/10/17 0555 Microbiology Microbiology Date/Time Source Procedure Growth Status 08/09/17 12:11 Blood Peripheral Aerobic Blood Culture - Preliminary NO GROWTH IN 2 DAYS Resulted 08/09/17 12:11 Blood Peripheral Anaerobic Blood Culture - Preliminary NO GROWTH IN 2 DAYS Resulted 08/09/17 12:06 Blood Peripheral Aerobic Blood Culture - Preliminary NO GROWTH IN 2 DAYS Resulted 08/09/17 12:06 Blood Peripheral Anaerobic Blood Culture - Preliminary NO GROWTH IN 2 DAYS Resulted 08/09/17 10:16 Sputum Expectorated Sputum Gram Stain - Final Resulted 08/09/17 10:16 Sputum Culture - Preliminary Staphylococcus Aureus Gram Negative Xander Resulted 08/09/17 10:16 Urine Catheterized Urine Urine Culture - Final NO GROWTH IN 48 HOURS. Complete Procedures 07/30/2017: Intubation 07/30/2017: ICP monitor placed . Assessment and Plan Disease Oriented Problem List: (1) Congestive heart failure (2) Anemia (3) Acute kidney insufficiency (4) Respiratory failure (5) Hypertensive emergency (6) Intracranial bleed (7) Edema due to congestive heart failure (8) Major neurocognitive disorder as late effect of traumatic brain injury without behavioral disturbance Symptom Scale: (1) Pain (2) Encephalopathy (3) Dyspnea Pertinent Non-Medical Issues Psychosocial: Patient is originally from [place]. He dated his (Kristin ) in high school, and they have now been for approximately 62 years. 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 Together they have 4 adult children, 10 grandchildren and 5 great-grandchildren. Spiritual: Anabaptism thanh Legal: Unclear. Per [place] statutes, in the absence of written advance directives healthcare proxy decision making would fall to the patient's . Patient also has 4 adult children. Danielle and Darryn who live locally have verbally indicated that Danielle is the healthcare surrogate decision maker. Awaiting copies of documentation which should be received tomorrow 08/03/17 Ethical issues impacting care: No known ethical issues impacting care. . Important Contacts Kristin Alonzo, : [phone] Danielle Adkins, daughter: [phone] Darryn Alonzo, son: [phone] . Prognosis Patient is an 82-year-old male who has suffered severe brain trauma which is complicated by multiple comorbid conditions. Prognosis is very poor, and the patient may not survive this hospitalization. . Code Status: Full Code Plan * DNR * Decision making: Danielle and Darryn who live locally have verbally indicated that Danielle is the healthcare surrogate decision maker. However, copies of written advanced directives, designation of healthcare surrogate form, have not yet been provided by the family. Per [place] statutes, in the absence of written advanced directives healthcare proxy decision making falls to the patient's . If she is unable to fulfill this role, then healthcare proxy decision making. The majority of the patient's 4 adult children.(Prior interactions with have noted that she appears to have cognitive impairments and may not be able to fully participate in decision-making) * Met w family at length, they have indicated pt would NOT want trach/PEG. They do NOT wish to proceed w trach/PEG. , children request to withdraw ventilator, transition to comfort TUESDAY, around 1130 am. Exhibits placed in chart. anticipatory guidance provided. * Symptom management: = Encephalopathy: Patient remains encephalopathic status post subdural and subarachnoid hemorrhages. He has been off sedation for approximately 24 hours. Opens eyes and moves all extremities spontaneously; no purposeful movement observed. Patient does not arouse to verbal stimuli or follow commands. Follow-up CT brain on 08/04/17 revealed stable intracranial findings including bilateral subdural hematomas, intraventricular blood products and bilateral temporal lobe hemorrhagic contusions. No midline shift or herniation. Ventricle size stable. EEG= mild to moderate encephalopathy Critical care stating patient's prognosis is very poor with minimal likelihood of any meaningful neurological recovery. = Dyspnea: Patient remains intubated on mechanical ventilation. Follow-up chest x-ray on 08/08/17 showed unchanged bibasilar infiltrates. Requiring 70% FiO2 * Palliative care will follow this patient throughout his hospitalization to establish trust, assist with symptom management and clarification of medical treatment goals . Attestation To help prompt me to consider important information that might be impacting today's encounter and assessment, information from prior notes written by myself or my colleagues may have been "brought forward" into today's note. My signature on this note, however, is an attestation that I personally performed the exam, history, and/or decision-making noted today, and, unless otherwise indicated, the interactions with patient, family, and staff as well as the review of records all occurred today. I also attest that the listed assessment and stated plan reflect my best clinical judgment today based on the combination of historical information, prior notes, and today's exam/ interactions. When time spent is documented, it refers only to time spent today by the signer, or if indicated, combined time spent today by collaborating physician/nurse practitioner. Danielle Martinez Aug 11, 2017 15:43
[2017-08-11] MEDS ORDERED: VANCOMYCIN INJ 1,000 MG in SODIUM CHLOR 0.9% 250 ML INJ 250 ML IV ONE (15:45)
--- NOTE | 2017-08-11 19:13 | HHI.CCPN ---
Subjective Brief History [employer]: This is a 82-year-old gentleman who fell backwards off of a ladder with brief loss of consciousness and brief round of CPR at the scene was brought in as a level II trauma alert intubated in the trauma bay and upgraded to level I. He was found to have subdural and subarachnoid hemorrhages and was given 2 units of platelets for platelet dysfunction secondary to Plavix use. Final injuries: Right temporal intraparenchymal hemorrhage with slight subdural component Left frontoparietal and temporo-occipital subdural hematoma about 1 cm thick Patient has complex history of CHF,coronary artery disease, diabetes mellitus and chronic renal insufficiency requiring dialysis in 2013. Since then patient has been off dialysis but at this point creatinine is rising. 24 Hour Review/Hospital Course 07/[address] appears to be worse today with slight increase in the size of his bleeds Is currently on a Cardene drip to maintain systolic blood pressure less than 160 , his beta stacie has been held for a heart rate in the mid 50s 08/01/2017 Patient is intubated ventilated on propofol and fentanyl ICP measurements about 5-8 mmHg Remains sedated not moving any extremities at this time Hemodynamically patient is stable with hypertension. Patient is noted to be hypertensive from home and some of medications have been reinstituted In addition to Lopressor and hydralazine patient is currently on Cardene drip in order to keep systolic blood pressure under 160 mmHg Patient will need Catapres patch in order to wean off Cardene In face of increased creatinine and BUN patient did not have IV contrast to assess the chest and abdomen but externally there are no signs of trauma to either Renal function as above noted is impaired with rising creatinine and BUN. Nephrology consult from Dr. Chavez is greatly appreciated Patient will be managed expectantly and as the neurologic function improves sedation will be gradually weaned It should be noted that severe brain trauma in this age group with related medical problems survival is very low and patient is a high mortality probably in the range of 80-90%. 08/02/2017 Patient remains intubated ventilated and sedated with all neuroprotective measures Hemodynamically patient is stable and hypertensive on several antihypertensive drugs including Cardene noted to keep systolic blood pressure under 160 mmHg Bilateral breath sounds remains ventilatory dependent in the face of decreased level of consciousness On assist control ventilation 40% FiO2 Abdomen soft nontender will start on enteral feedings Nephrology help is greatly appreciated in the care of this patient with marginal renal function and he may need intermittent dialysis should his fluid status worsened and he becomes fluid overloaded 08/03/17 severe TBI on elderly patient with multiple medical issues PRINCE superimposed on chronic renal failure compensated metabolic acidosis secondary due to renal failure diuresis initiated by topographical drafter moene for BP control 08/04/2018 Patient this point is off sedation however there is no appreciable neurologic function except for some movement of upper extremities [place] Coma Scale 4 Hemodynamically patient is stable however quite hypertensive on multiple medications and even on Cardene drip difficulty controlling systolic blood pressure Cardiology help is greatly appreciated. Cardiac function intact and no signs of contusion or acute injury to the heart Bilateral breath sounds decreased over the right base were patient has a infiltrate in the right lower lobe Remains on assist control ventilation fully supported not breathing over the respirator but with good PO2 FiO2 gradient Abdomen is soft and enteral feeds of tolerated Renal function is gradually deteriorating and patient had underlying renal insufficiency prior to this event. He was on dialysis few years ago in an unrelated episode. At this point in discussions with family there is some ambiguity about which way to go. This patient has 90% mortality in 100% morbidity and most likely in the best case scenario patient will require tracheostomy feeding tube and will remain bedridden permanently 08/05/2017 PTD: 6 Mechanically ventilated and sedated Patient remains hypertensive on max Cardene. Increased clonidine patch and added Norvasc. Will have meeting with family to discuss plan of care and decision on whether to progress to dialysis. 08/06/2017 PTD: 7 Patient remains mechanically ventilated and sedated. Remains hypertensive despite numerous agents. Currently on second session of dialysis. 08/07/17 Vomited overnight and likely aspirated Respiratory distress with increased Fio2 requirements overnight Maxed out on Cardene and Cardizem gtts Getting dialysis during visit 08/08/2017 No change in neurologic status patient remains unconscious withdraws to pain [place] Coma Scale 4 Hemodynamically patient is intact however hypertension hard to control Remains on Cardene drip and a slew of antihypertensives Several rounds of V. tach in last 48 hours which resolved spontaneously Bilateral breath sounds with good PO2 FiO2 gradient and improving pulmonary function Abdomen soft Patient aspirated the other day and therefore will be kept off enteral feeds for the time being Ileus due to multiple medications including fentanyl Patient has no reasonable chance of meaningful recovery Family is not sure about tracheostomy and PEG Prognosis poor 08/09 multi organ failure severe HTN on multiple agents-including cardizem/cardene start to move extremities off sedation NG 100cc/12 hrs ,diarrhea staph + BAL on vanco 08/10/2018 Patient is only a small dose fentanyl however his [place] Coma Scale remains around 5 Somewhat he stated that patient open his eyes but I have not had a chance to see this Patient withdraws to pain occasionally This is consistent with severe hypoxic injury and cerebral anoxia Hemodynamically patient is stable however requiring very high doses of antihypertensives including Cardene drip which is maximized at this time The only other options are Nipride and Arfonad but in patients with head injury and perceived intracranial hypertension but this is discouraged Bilateral breath sounds remains ventilatory dependent with good PO2 FiO2 gradient Bilateral basal infiltrates right more than left Abdomen soft enteral feeds tolerated At this point patient should have a tracheostomy and PEG if we proceed with further care however family is debating supportive care option at this time in face of very poor prognosis Palliative care consult and help is greatly appreciated 08/11/2017 Patient with severe brain injury and no functional neurologic recovery According to the palliative care and patient's family they would like to withdraw care in the next 24-40 hours with family comes into town Patient will be withdrawn from care according to the family's wishes Remains intubated ventilated No sedation and no neurologic activity [place] Coma Scale remains 3-4 just for the fact that patient will occasionally move foot Expert care from vp product team, palliative care, neurosurgery and other specialists is greatly appreciated Objective Vital Signs Date Time Temp Pulse Resp B/P (MAP) Pulse Ox O2 Delivery O2 Flow Rate FiO2 08/11/17 18:00 84 08/11/17 16:47 99 50 08/11/17 16:00 99.0 13 123/57 (79) Intake and Output 08/11/17 08/11/17 08/12/17 08:00 16:00 00:00 Intake Total 253 ml 100 ml 380 ml Output Total 270 ml 200 ml Balance -17 ml 100 ml 180 ml Result Diagram: 08/10/17 0555 08/10/17 0555 Other Results Microbiology Date/Time Source Procedure Growth Status 08/09/17 10:16 Urine Catheterized Urine Urine Culture - Final NO GROWTH IN 48 HOURS. Complete Vascular Central Line Catheter Side: Right Location: Internal, Jugular (Vas cath) Assessment and Plan Assessment: (1) Congestive heart failure ICD Code: I50.9 - Heart failure, unspecified Status: Chronic (2) Anemia ICD Code: D64.9 - Anemia, unspecified Status: Chronic (3) Acute kidney insufficiency ICD Code: N28.9 - Disorder of kidney and ureter, unspecified Status: Chronic (4) Respiratory failure ICD Code: J96.90 - Respiratory failure, unspecified, unspecified whether with hypoxia or hypercapnia Status: Acute (5) CKD (chronic kidney disease) stage 3, GFR 30-59 ml/min ICD Code: N18.3 - Chronic kidney disease, stage 3 (moderate) Status: Chronic (6) Unresponsive ICD Code: R41.89 - Other symptoms and signs involving cognitive functions and awareness Status: Acute (7) Intracranial bleed ICD Code: I62.9 - Nontraumatic intracranial hemorrhage, unspecified Status: Acute (8) Hypertensive emergency ICD Code: I16.1 - Hypertensive emergency Status: Acute (9) Edema due to congestive heart failure ICD Code: I50.9 - Heart failure, unspecified Status: Chronic (10) Dyspnea ICD Code: R06.00 - Dyspnea, unspecified Status: Acute (11) Traumatic brain injury ICD Code: S06.9X9A - Unspecified intracranial injury with loss of consciousness of unspecified duration, initial encounter Status: Acute (12) Major neurocognitive disorder as late effect of traumatic brain injury without behavioral disturbance ICD Code: S06.9X9S - Unspecified intracranial injury with loss of consciousness of unspecified duration, sequela; F02.80 - Dementia in other diseases classified elsewhere without behavioral disturbance Status: Acute Plan [employer]: 82-year-old male who sustained a fall. He fell off a ladder approximately 10 feet, striking his head. + LOC. Short period of CPR and then the patient woke up, confused with unequal pupils. GCS 13. Systolic blood pressure = 200. Patient is on Plavix. INJURIES: Temporal SAH RIGHT temporal SDH ?Aspiration PMHx: CHF, HTN, DM, CRF, HLD, PVD, Perforated appendix- sepsis (2 years ago) Procedures: 07/30: Intubated 07/30 - 08/05 [place] NEUROLOGICAL: -Temporal SAH, RIGHT temporal SDH Neurosurgery consulted Sedated and mechanically ventilated Propofol for sedation Daily sedation vacations Goal RASS score of -2 Serial neuro checks 08/04: CT Brain - stable 08/01: CT brain - stable 07/31: CT brain - increase L SDH. Increase R temporal hemorrhage 07/30 - 08/05: ICP bolt placement Seizure precautions PO Keppra BID HOB elevated 30 degrees Hypernatremia status - 144 CARDIOVASCULAR: Cardiology consulted Patient with history of CHF, HTN, HLD, PVD Continues with Cardene and Cardizem gtts- maxed out Lopressor 5 mg IV q6 hours Hydralazine 100 mg PO BID Hytrin 7 mg PO BID Catapres patch 0.3 mg Norvasc 10 mg PO QD Diuretics - Lasix 80 IV q 8H. 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: Critical care vp product 07/30: Intubated Likely aspirated overnight IV Abx: vanco Vent bundle CT chest today shows bilateral lower lobe consolidation Patient will need tracheostomy if family decides to continue with aggressive care Palliative care consulted to assist family with goals of care Shayneonebs VAP protocol in place - Follow-up Labs tomorrow CXR PRN GASTROINTESTINAL: Not tolerating tube feeding Gastric residual > 100 cc OGT to LIWS TF on hold Patient will need PEG placement Bowel regimen Reglan 5 mg q 8h for increased residuals RENAL: Pattern Clerk consulted Patient with history of chronic renal failure Strict I&O LASIX 80 IV q 8H. Diuril 500mg BID - per nephrology Hemodialysis per nephrology Hematuria with clots requiring PRN [place] irrigation 08/01: US kidney - no hydronephrosis ENDOCRINE: Patient with history of DM SSI q 6h HEMATOLOGY: Patient with a history of chronic anemia Does not meet transfusion trigger this time 08/02: US Lower extremity study - NEGATIVE for DVT ID: Low-grade temps No leukocytosis Likely aspirated overnight IV Abx: Maxipime LINES: 07/30: ETT 07/30: OGT 08/05: R IJ vas cath 08/07: L SC TLC 07/30: [place] PROPHYLAXIS: VAP - protocol in place GI - Pepcid 10 mg BID DVT - Mechanical VTE with SCDs. SQ heparin held due to hematuria SKIN: Warm and dry Generalized edema Plan of care discussed with RN at bedside. TBI/MOF/geriatric patient poor prognosis,however family hopeful patient has advanced directives-,which need to be seen before proceeding with peg/trach Problem Qualifiers (1) Congestive heart failure: Qualified Codes: I50.9 - Heart failure, unspecified (2) Anemia: Qualified Codes: D64.9 - Anemia, unspecified (3) Respiratory failure: Qualified Codes: J96.00 - Acute respiratory failure, unspecified whether with hypoxia or hypercapnia (4) Dyspnea: Qualified Codes: R06.00 - Dyspnea, unspecified (5) Traumatic brain injury: Andrea Banks MD Aug 11, 2017 19:13
--- NOTE | 2017-08-11 19:50 | PD.CARD.PN ---
Subjective Subjective Remarks Heart rates and blood pressure controlled Off sedation Eyes open, moves extremities, not purposeful Family has decided on possible comfort care tomorrow Objective Medications Current Medications Medications (Trade) Dose Ordered Sig/Juliet Route Start Time Stop Time Status Last Admin (NS Flush) 2 ml UNSCH PRN IV FLUSH 07/30/17 12:45 08/09/17 07:48 (Zofran Inj) 4 mg Q6H PRN IV PUSH 07/30/17 12:45 08/06/17 18:19 Miscellaneous Information 1 Q361D XX 07/30/17 12:45 (Chlorhexidine 2% Cloth) Taper DAILY@04 TOP 07/31/17 04:00 07/27/18 03:59 08/05/17 03:26 (Chlorhexidine 2% Cloth) 3 pack UNSCH PRN TOP 07/30/17 12:45 (Peridex 0.12% Liq) 15 ml BID@08,20 MT 07/30/17 20:00 08/11/17 07:32 (Pepcid) 10 mg BID PO 07/30/17 21:00 08/11/17 07:33 (Pravachol) 40 mg DAILY PO 07/31/17 09:00 08/11/17 07:33 (D50w (Vial) Inj) 50 ml UNSCH PRN IV PUSH 07/31/17 07:45 (Glucagon Inj) 1 mg UNSCH PRN OTHER 07/31/17 07:45 (Jackelyn-Colace) 1 tab BID PO 08/01/17 21:00 08/09/17 22:16 (Dulcolax Supp) 10 mg DAILY PRN RECTAL 08/01/17 16:15 (NovoLOG SUPPLEMENTAL SCALE) 1 Q6HR SQ 08/01/17 18:00 08/11/17 18:00 (Apresoline Inj) 10 mg Q4HR PRN IV PUSH 08/04/17 12:30 08/09/17 08:54 (Milk Of Magnesia Liq) 30 ml BID PO 08/05/17 09:00 08/06/17 07:56 (Reglan Inj) 5 mg Q8HR IV PUSH 08/05/17 14:00 08/10/17 13:45 (Heparin Inj) 5,000 units Q8HR SQ 08/05/17 14:00 Future hold 08/11/17 14:00 Sodium Chloride 1,000 ml @ 0 mls/hr Q0M PRN OTHER 08/05/17 13:51 Sodium Chloride 1,000 ml @ 200 mls/hr Q5H PRN IV 08/05/17 13:51 08/06/17 13:21 Sodium Chloride 1,000 ml @ 0 mls/hr Q0M PRN OTHER 08/05/17 13:51 Albumin Human 100 ml @ 60 mls/hr UNSCH PRN IV 08/05/17 14:00 08/10/17 09:14 (NS Flush) 5 ml UNSCH PRN IV FLUSH 08/05/17 14:00 (Heparin Inj) UNSCH PRN .XX 08/05/17 14:00 08/10/17 09:14 (Gentamicin Inj) 20 mg UNSCH PRN OTHER 08/05/17 14:00 08/10/17 09:14 (Zofran Inj) 4 mg UNSCH PRN IV PUSH 08/05/17 14:00 (Tylenol) 650 mg UNSCH PRN PO 08/05/17 14:00 (Benadryl) 25 mg UNSCH PRN PO 08/05/17 14:00 (Nitrostat Sl) 0.4 mg UNSCH PRN SL 08/05/17 14:00 (Catapres) 0.1 mg UNSCH PRN PO 08/05/17 14:00 08/08/17 01:57 (Gelfoam 12 Mm/7 Mm Top) 1 foam UNSCH PRN TOP 08/05/17 14:00 Nicardipine HCl 50 mg/Sodium Chloride 500 ml @ 50 mls/hr TITRATE PRN IV 08/06/17 00:15 08/09/17 18:14 (Albuterol Neb) 2.5 mg Q2HR NEB PRN NEB 08/06/17 09:45 (Norvasc) 10 mg DAILY PO 08/07/17 09:00 08/11/17 07:33 (Apresoline) 100 mg Q8HR PO 08/06/17 14:00 08/11/17 12:48 (Lactulose Liq) 30 ml QID PO 08/06/17 13:00 08/09/17 22:15 (Miralax) 17 gm BID NG 08/06/17 21:00 08/09/17 07:47 (Zyloprim) 100 mg DAILY PO 08/07/17 09:00 08/11/17 07:33 (Hytrin) 7 mg BID NG 08/06/17 13:30 08/11/17 07:34 (Lopressor Inj) 2.5 mg Q6H PRN IV PUSH 08/07/17 07:45 08/08/17 08:35 (Coreg) 12.5 mg Q12HR PO 08/08/17 09:00 08/11/17 07:33 (Cardizem) 90 mg Q6HR PO 08/09/17 12:00 08/11/17 18:22 (Duoneb Neb) 1 ampule Q6HR NEB NEB 08/09/17 16:00 08/11/17 16:47 (Catapres) 0.3 mg Q8HR PO 08/09/17 14:00 08/11/17 12:48 Miscellaneous Information 2 Q7D T-DERMAL 08/12/17 11:00 (Catapres-Tts 0.3 Mg Patch.7d) 2 patch Q7D T-DERMAL 08/09/17 12:00 08/09/17 11:13 (Bumetanide) 1 mg BID@09,18 NG 08/10/17 18:00 08/11/17 18:22 Cefepime HCl 1000 mg/Sodium Chloride 100 ml @ 200 mls/hr Q12H IV 08/11/17 21:00 Vital Signs / I&O Vital Signs Date Time Temp Pulse Resp B/P (MAP) Pulse Ox O2 Delivery O2 Flow Rate FiO2 08/11/17 18:00 84 08/11/17 16:47 99 50 08/11/17 16:00 99.0 96 13 123/57 (79) 96 08/11/17 16:00 50 08/11/17 16:00 94 08/11/17 14:00 104 08/11/17 12:56 100 70 08/11/17 12:00 98.5 114 13 113/53 (73) 99 08/11/17 12:00 50 08/11/17 12:00 114 08/11/17 10:00 110 08/11/17 09:18 95 50 08/11/17 08:00 50 08/11/17 08:00 90 08/11/17 08:00 98.9 90 15 133/64 (87) 93 08/11/17 06:00 85 08/11/17 04:00 60 08/11/17 04:00 80 08/11/17 04:00 99.2 80 14 146/65 (92) 98 08/11/17 03:47 97 50 08/11/17 02:00 80 08/11/17 00:00 60 08/11/17 00:00 82 08/11/17 00:00 98.7 79 14 131/61 (84) 99 08/10/17 23:40 98 45 08/10/17 22:10 99 50 08/10/17 22:00 90 08/10/17 20:00 98.7 97 15 146/61 (89) 100 08/10/17 20:00 97 08/10/17 20:00 60 I/O 08/10/17 08/10/17 08/10/17 08/11/17 08/11/17 08/11/17 07:00 15:00 23:00 07:00 15:00 23:00 Intake Total 3044 ml 200 ml 109 ml 253 ml 100 ml 380 ml Output Total 60 ml 4000 ml 200 ml 270 ml 200 ml Balance 2984 ml -3800 ml -91 ml -17 ml 100 ml 180 ml IV Total 3044 ml 200 ml 100 ml 250 ml Tube Feeding 109 ml 133 ml 130 ml Tube Irrigant 120 ml Output Urine Total 60 ml 100 ml 70 ml 200 ml Stool Total 100 ml 200 ml Hemodialysis 4000 ml # Bowel Movements 4 Physical Exam GENERAL: Intubated and sedated SKIN: Warm and dry. HEAD: Atraumatic. Normocephalic. EYES: Pupils equal and round. No scleral icterus. No injection or drainage. ENT: No nasal bleeding or discharge. Mucous membranes pink and moist. NECK: Trachea midline. No JVD. CARDIOVASCULAR: Regular rate and rhythm. RESPIRATORY: No accessory muscle use. Clear to auscultation. Breath sounds equal bilaterally. GASTROINTESTINAL: Abdomen soft, non-tender, nondistended. Hepatic and splenic margins not palpable. MUSCULOSKELETAL: Extremities without clubbing, cyanosis, or edema. No obvious deformities. NEUROLOGICAL: Unable to determine. ICP monitor in place, pressures 4-13 Assessment and Plan Problem List: (1) Major neurocognitive disorder as late effect of traumatic brain injury without behavioral disturbance ICD Codes: S06.9X9S - Unspecified intracranial injury with loss of consciousness of unspecified duration, sequela; F02.80 - Dementia in other diseases classified elsewhere without behavioral disturbance Status: Acute (2) Intracranial bleed ICD Codes: I62.9 - Nontraumatic intracranial hemorrhage, unspecified Status: Acute (3) Edema due to congestive heart failure ICD Codes: I50.9 - Heart failure, unspecified Status: Chronic (4) Hypertensive emergency ICD Codes: I16.1 - Hypertensive emergency Status: Acute (5) CKD (chronic kidney disease) stage 3, GFR 30-59 ml/min ICD Codes: N18.3 - Chronic kidney disease, stage 3 (moderate) Status: Chronic (6) Acute kidney insufficiency ICD Codes: N28.9 - Disorder of kidney and ureter, unspecified Status: Chronic Assessment and Plan 1) Mechanical fall leading in subdural/subarachnoid hemorrhage 2) Benign PVCs Normal function on echo Electrolytes normal range 3) ASA/Plavix stopped for ICH 4) Blood pressure elevated Currently on Cardene drip Hydralazine PRN Hytrin increased by Nephrology 5) Worsening renal function, started on HD 6) Afib with RVR Cardizem/Coreg Not an anti-coagulation candidate 7) Possible comfort care tomorrow Will see PRN, call with questions Aman Lind DO Aug 11, 2017 19:50
[2017-08-12] VITALS (11 sets, daily range): BP systolic 120–130; BP diastolic 59–62; PULSE 78–105; RESP 12–17; TEMP 98.7–98.8; O2SAT 98–100
[2017-08-12] MEDS: DILTIAZEM HCL 90 MG TAB PO SCH ×2 (00:47→06:34)
[2017-08-12] MEDS: RESP: ALBUTEROL 2.5 MG/IPRATROPIUM 0.5 MG NEB (SCH) NEB ×2 (03:26→08:52)
[2017-08-12] MEDS: CHLORHEXIDINE GLUCONATE 2 % 1 PACK (2 CLOTHS) TOP SCH (04:00)
[2017-08-12 04:10] LABS: AUTOMATED NEUTROPHIL # 7.6 TH/MM3 (1.8-7.7); BASOPHIL % 0.4 % (0.0-2.0); EOSINOPHIL # 0.1 TH/MM3 (0-0.4); EOSINOPHIL % 1.2 % (0.0-4.0); HEMATOCRIT 21.9 % (39.0-51.0); HEMOGLOBIN 7.4 GM/DL (13.0-17.0); LYMPHOCYTE # 0.7 TH/MM3 (1.0-4.8); MEAN CELL VOLUME 85.5 FL (80.0-100.0); MEAN CORPUSCULAR HEMOGLOBIN 28.7 PG (27.0-34.0); MEAN CORPUSCULAR HGB CONC 33.6 % (32.0-36.0); MONO % 9.3 % (0.0-8.0); MONOCYTE # 0.9 TH/MM3 (0-0.9); NEUT % 82.1 % (16.0-70.0); PLATELET COUNT 104 TH/MM3 (150-450); RED BLOOD COUNT 2.56 MIL/MM3 (4.50-5.90); RED CELL DISTRIBUTION WIDTH 22.8 % (11.6-17.2); WHITE BLOOD COUNT 9.3 TH/MM3 (4.0-11.0)
[2017-08-12 04:30] LABS: BICARBONATE 27.9 MEQ/L (21.0-32.0); CALCIUM 8.2 MG/DL (8.5-10.1); CREATININE 3.93 MG/DL (0.60-1.30)
[2017-08-12] MEDS: HEPARIN SODIUM - SQ 10,000 UNITS/ML VIAL SQ SCH ×2 (06:00→14:00)
[2017-08-12] MEDS: INSULIN ASPART SUPPLEMENTAL SCALE SQ SCH ×3 (06:00→12:00)
[2017-08-12] MEDS: METOCLOPRAMIDE HCL 10 MG/2 ML VIAL IV PUSH SCH ×2 (06:00→14:00)
[2017-08-12] MEDS: cloNIDine HCL 0.3 MG TAB PO SCH (06:34)
[2017-08-12] MEDS: hydrALAZINE HCL 100 MG TAB PO SCH ×2 (06:34→14:00)
--- NOTE | 2017-08-12 07:06 | HHI.CCPN ---
Subjective Remarks/Hospital Course 82 y/o man fell from height and sustained closed head trauma including left subdural hematoma and bilateral temporal parenchymal bleeds in areas of contusion. Admission CXR is impressive for pulmonary venous congestion. Home meds are not known at this time. 07/31: Enlarging left subdural hemorrhage and enlarging parenchymal contusions/ bleeds undoubtedly exacerbated by Plavix and aspirin use. CXR demonstrates bilateral effusions but improved pulmonary venous congestion after diuretic yesterday. Unfortunately a worsening azotemia has developed indicating he may not tolerate diuresis well. Follow renal function closely. I would have predicted chronic systolic heart failure after observing his effusions and ankles but his cardiac ECHO reveals reasonable biventricular function, probably EF > 50%. This may all be primary renal disease considering his reduced GFR and chronic anemia. 08/01: Remains sedated, orally intubated on mechanical ventilation 08/05: Remains sedated, orally intubated on mechanical ventilation. Renal function continued to decline of the last few days. Family wishes to proceed with hemodialysis after discussion with trauma team and nephrology. Subjective 08/06: Afebrile. Bradycardic. No acute cardiovascular incidents overnight. Continues on nicardipine drip at 7.5 mg an hour. Hemodialysis yesterday -3 L 08/07: Hypoxemic increasing oxygen requirement. Currently on 60% FiO2 10 of PEEP. Also developed atrial fibrillation with RVR, currently on Cardizem infusion at 15 mg/h with heart rate in 130s, Cardene infusion at 15 mg/h to control blood pressure. Additional 50 mg IV push of Cardizem ordered. Chest x- ray with bilateral basilar infiltrates left more than right. Increased yellow ET tube secretions. Start cefepime 1 gm IV q12 and vancomycin 1 gm IV x1 08/08: Remains intubated heavily sedated for ventilator synchrony. Antibiotics started yesterday for dense basilar consolidation bilaterally, WBC count slightly improved today. Intermittent episodes of nonsustained V. tach. Start scheduled Coreg 12.5 twice daily. Check magnesium level replace potassium. Hemodialysis yesterday with 3.5 L removed. Urine output approximately 500 mL in 24 hours 08/09: Remains critical. Maximized on Cardene infusion for blood pressure control. Heart rate is controlled with Cardizem drip start Cardizem 90 mg p.o. every 6 hours and wean to DC Cardizem infusion. Fever 100.6 with leukocytosis now 18.9. Repeat panculture. Off sedation for 24 hours now, has spontaneous eye opening and moves extremities spontaneously 08/10: Bilateral lower lobe infiltrates, cultures pending. ABX infusing. Lung volumes small. 08/11: Persistent problems with diffusing capacity requiring elevated peak but acceptable plateau pressures on ventilator.Grimaces to stimulation today as best response. 08/12: Elevated diffusion gradient persists. Multiple acute medical problems and co-morbidities will probably prevent recovery. Objective Vital Signs Date Time Temp Pulse Resp B/P (MAP) Pulse Ox O2 Delivery O2 Flow Rate FiO2 08/12/17 06:00 102 08/12/17 04:16 100 50 08/12/17 04:00 98.7 17 130/62 (84) Intake and Output 08/12/17 08/12/17 08/13/17 08:00 16:00 00:00 Intake Total 787 ml Output Total 175 ml Balance 612 ml Result Diagram: 08/12/17 0350 08/12/17 0350 Other Results Microbiology Date/Time Source Procedure Growth Status 08/09/17 10:16 Urine Catheterized Urine Urine Culture - Final NO GROWTH IN 48 HOURS. Complete Laboratory Tests Test 08/12/17 06:03 Blood Gas Puncture Site LT RADIAL Blood Gas Patient Temperature 98.6 Blood Gas HCO3 26 mmol/L (22-26) Blood Gas Base Excess 2.4 mmol/L (-2-2) Blood Gas Oxygen Saturation 95 % (90-100) Arterial Blood pH 7.49 (7.380-7.420) Arterial Blood Partial Pressure CO2 34 mmHg (38-42) Arterial Blood Partial Pressure O2 87 mmHg (61-120) Arterial Blood Oxygen Content 10.1 Vol % (12.0-20.0) Arterial Blood Carboxyhemoglobin 1.4 % (0-4) Arterial Blood Methemoglobin 0.9 % (0-2) Blood Gas Hemoglobin 7.4 G/DL (12.0-16.0) Oxygen Delivery Device VENT Blood Gas Ventilator Setting SEE COMMENTS Blood Gas Inspired Oxygen 50 % Imaging Last Impressions Chest X-Ray 08/06/17 0600 Signed Impressions: Service Date/Time: Sunday, August 06, 2017 02:56 - CONCLUSION: 1. Slightly improved bibasilar consolidation and small effusions. 2. No change mild cardiomegaly. Ra Ballard MD Head CT 08/04/17 0000 Signed Impressions: Service Date/Time: July 04:37 - CONCLUSION: 1. Stable intracranial findings including bilateral subdural hematomas, intraventricular blood products, and bilateral temporal lobe hemorrhagic contusions. There is no midline shift or herniation. Ventricles are stable in size. 2. There is new fluid in the mastoid air cells and small air fluid levels bilaterally in the maxillary antra. These changes may be related to intubation. Ra Pulliam MD Lower Extremity Ultrasound 08/02/17 0000 Signed Impressions: Service Date/Time: Wednesday, August 02, 2017 10:40 - CONCLUSION: No evidence of DVT. Danyel Bear MD Renal Ultrasound 08/01/17 0000 Signed Impressions: Service Date/Time: Tuesday, August 01, 2017 14:46 - CONCLUSION: There is no hydronephrosis or stone. Bilateral pleural effusions.. Angel Brown MD FACR Shoulder X-Ray 07/31/17 0000 Signed Impressions: Service Date/Time: Monday, July 31, 2017 14:25 - CONCLUSION: No obvious fracture or dislocation. Degenerative changes. Prasanna Milan MD Cervical Spine CT 07/30/17 1202 Signed Impressions: Service Date/Time: Sunday, July 30, 2017 12:17 - CONCLUSION: 1. Negative for fracture. 2. Degenerative changes consisting of uncinate ridging with neural foramen encroachment without radiographically significant spinal stenosis. 3. Bilateral moderate sized pleural effusions seen on the lower slices through the upper lungs lungs. Angel Brown MD FACR Objective Remarks GENERAL: 82-year-old male currently orotracheally intubated. SKIN: Warm/dry. HEAD: Atraumatic. Normocephalic. EYES: Now right pupil 2 mm, left pupil 2 mm both reactive to light. Subconjunctival hemorrhage on the right side, resolving. ENT: No nasal bleeding or discharge Orotracheally intubated. NECK: Trachea midline. CARDIOVASCULAR: Atrial fibrillation on monitor, rate 90s. NL S1, S2. Distant tones. RESPIRATORY: Breath sounds equal bilaterally, with coarse rhonchi, diminished sounds at the bases. GASTROINTESTINAL: Abdomen soft. Active bowel sounds, no guarding. : Dockery catheter in place with bloody. MUSCULOSKELETAL: No obvious deformities. Possible lipodermatosclerosis bilateral lower extremities. Well perfused. NEUROLOGICAL: Off sedation, spontaneous eye opening, moving extremities spontaneously, does not follow commands. Side: Right Location: Internal, Jugular (Vas cath) A/P Assessment and Plan Neuro/Psych: TBI Bilateral subdural hematomas, intraventricular blood products, and bilateral temporal lobe hemorrhagic contusions Acute encephalopathy Currently off all continuos sedation. Spontaneously opening eyes and moving extremities, there is slight improvement in neuro exam CT brain admission revealed bilateral subdural hematomas, intraventricular hemorrhage in bilateral temporal contusions. Followed by neurosurgery/Dr. Horne. Status post removal of ICP 08/05 Levetiracetam 500 mg by tube twice daily seizure prophylaxis Acetaminophen 650 mg p.o. every 6 hours as needed fever Currently holding primidone 50 mg twice daily for essential tremor No improvement. CV: Atrial fibrillation with RVR Nonsustained V. tach Uncontrolled hypertension Chronic diastolic heart failure Mild pulmonary hypertension PVD -stent LAD status post femoropopliteal Currently on nicardipine drip at 15 mg an hour to maintain systolic blood pressure less than 150 Cardizem drip -will wean to DC after starting Cardizem 90 mg every 6 hours Continue hydralazine 100 mg every 8 hours, amlodipine 10 mg daily, metoprolol 5 mg IV every 6 hours and terazosin 10 mg daily Scheduled p.o. Coreg 12.5 twice daily. Currently on clonidine patch. Will increase to 0.6 mg patch, add clonidine po 0.3 mg q8. Continue hydralazine 100 mg every 8 Continue pravastatin 40 mg daily for dyslipidemia. On simvastatin 20 mg daily home. Holding aspirin 325 daily and clopidogrel 75 daily in light of brain hemorrhage as above, cannot fully anticoagulate for a fib 2D echo revealed LVEF low normal with an estimated ejection fraction in the range of 50- 55%. Mild pulmonary. hypertension 40 mmHg Currently on furosemide 80 mg IV every 6 hours and Diuril 500 mg IV every 12 hours. Hold while on hemodialysis-defer to nephrology (Home medications include terazosin 10 mg daily, Toprol 50 mg twice daily, losartan 25 mg p.o. daily, Aldactone 25 mg daily, Lasix 80 mg twice daily) Rate control acceptable. Resp: Acute hypoxemic respiratory failure Healthcare associated pneumonia [facility] /06/06/39. Start CPAP trials Ventilator bundle. Albuterol/ipratropium aerosols every 6 hours with albuterol aerosols every 2 hours as needed for dyspnea Continue broad-spectrum antibiotics with cefepime 1 g every 12, vancomycin 1 dose given 08/07 CT of the chest to evaluate effusion/infiltrate-shows bibasilar dense consolidation Probably will need increased mean airway pressure. Oxygenation remains hindered. GI: Hypoalbuminemia Constipation Gastroesophageal reflux disease Currently on Glucerna 1.5 and 35 cc an hour/recommendations per pharmacy Currently in famotidine for GI prophylaxis. On omeprazole 20 mg daily at home. Continue bowel regimen KUB showed normal bowel gas pattern : BPH Holding finasteride 5 mg daily and terazosin 10 mg daily. Resume clinically indicated The Dockery catheter has been placed for accurate I's and O's in a critically ill patient with significant scrotal edema Endo: Gout Diabetes mellitus Sliding scale insulin with aspart insulin to maintain euglycemia Home medications include glipizide 5 mg twice daily on hold Allopurinol 100 mg daily Renal: Acute kidney failure HD per Dr. Chavez. Potassium replacement orders given Heme: Normocytic anemia Thrombocytopenia Monitor CBC daily. Follow trends On iron sulfate 160 mg daily at home ID: Severe sepsis Healthcare associated pneumonia UTI with staph aureus -Now with fever and worsening leukocytosis. Repeat sputum blood and urine cultures -Started on cefepime and single dose of vancomycin 08/07.Give 1 gm of vanc and pharmacy to dose - Lung infiltrates persist FEN: Hypernatremia Replace electrolytes as clinically indicated Access: -Right IJ hemodialysis catheter placed 08/05, left subclavian central line placement, 08/07/2017 Prophylaxis -GI -famotidine -DVT -SCD/heparin subcutaneous Overall impression: Remains critically ill with TBI, hypoxemic respiratory failure, healthcare associated pneumonia, uncontrolled hypertension. Neuro exam though is unchanged overnight but overall prognosis remains guarded at best. It is doubtful that this man will survive this hospitalization and return to any meaningful existence aside from a longterm facility. DNR status and possibly comfort care is highly recommended by the [employer]. Prognosis quite poor in the context of his age and associated medical problems. Critical care 35 mins Serge Marcano MD Aug 12, 2017 07:06
--- NOTE | 2017-08-12 08:30 | HHI.PR ---
Neuropsych Emotional Emotional: UnabletoAssess: Emotional, Anxious/Fearful, Depressed/Sad, Hostile/ Resentful, Irritable/Angry/Frustrate, Labile, Constricted/Blunted Behavior Behavior: Intact: Impulsive/Agitated, Unable to Asses: Behavior, Coping/ Acceptance, Cooperative w/ Treatment, Motivation, Frustration Tolerance/[place], Suicidal/Homicidal Risk Cognitive Cognitive: Unable to Asses: Cognitive, Attention/Concentration, Confused/ Orientation, Insight/Awareness, Judgement/Problem-Solving, Memory Psychosocial Psychosocial: Intact: Psychosocial, Family/Other Adjustment, Realistic Expectation, Unable to Asses: Self-Esteem/Confidence Progress Notes/Response to Tx Contents of Sessions: Adjustment, Level of Consciousness Time with Patient: 15 minutes Premorbid psychological status Premorbid Cognitive, Emotional and Behavioral Status: Tenuous. The patient has high school years of education and is retired. The patient has no prior psychiatric difficulties, as described above. Substance abuse history is unremarkable. Behavioral Reactions of Patient and Family/Support System: Stable. The patient s family is experiencing ongoing issues of adjustment given the nature of the injury, and this aspect of recovery will require ongoing monitoring. Emotional/Behavioral Status of Patient and Family/Support System: Stable. Pertinent issues, if appropriate to this patients clinical care, are described in detail above. Maximizing acute care outcome It is recommended that the patient be monitored for emergent behavioral impulsivity as the medical condition evolves. This patients neuropathological challenges may limit his rehabilitation potential going forward, and these challenges will require specialized therapeutic skills to maximize outcome. Additionally, the patients family is experiencing ongoing issues of adjustment given the traumatic nature of the injury, and they may benefit from ongoing psychological assistance. At this point in the recovery process, the patient does not have cognitive capacity as the patient is unable to understand a situation and its likely consequences, nor is he able to manipulate information rationally. Cognitive capacity will be assessed throughout the recovery process. Anticipated Problems Ongoing areas of concern will include behavioral impulsivity, lack of insight and judgment, which is expected to improve with time and treatment. Presently , the patient is intubated and sedated. Treatment Plan This clinician will continue to follow with you throughout the course of this patients critical care treatment, and I will be available to meet with the patients family/support system to facilitate their understanding and the ongoing care of their family member. The goals of neuropsychological intervention shall be both educational and supportive to the family/support system as is deemed clinically appropriate. [facility] Level: I:No response-total assistance Impression 82 y/o male s/p TBI 2T fall on 07/30/2017. Diagnosis: (1) Major neurocognitive disorder as late effect of traumatic brain injury without behavioral disturbance Status: Acute Progress Note Narrative PTD 13. The patient has made no neurobehavioral improvement and remains with no chance for a meaningful neurobehavioral recovery. The patient has multiple acute medical problems and comorbidities that prevent his improvement. It is reported that the family wishes to withdraw care within the next 24-48 hours. The patient is [place] II at best. I will follow. Micah Sotelo PhD Aug 12, 2017 8:30 am
[2017-08-12] MEDS: POLYETHYLENE GLYCOL 17 GM PKG NG SCH (09:00)
[2017-08-12] MEDS: TERAZOSIN HCL 1 MG CAP NG SCH (09:27)
[2017-08-12] MEDS: BUMETANIDE 1 MG TAB NG SCH (09:27)
[2017-08-12] MEDS: CARVEDILOL 12.5 MG TAB PO SCH (09:28)
[2017-08-12] MEDS: FAMOTIDINE 20 MG TAB PO SCH (09:28)
[2017-08-12] MEDS: CEFEPIME INJ 1,000 MG in SODIUM CHLORIDE 0.9% INJ 100 ML IV SCH (09:28)
[2017-08-12] MEDS: LACTULOSE SYRUP 20 GM/30 ML CUP PO SCH (09:28)
[2017-08-12] MEDS: DOCUSATE SODIUM 50 MG/SENNA 8.6 MG TAB PO SCH (09:28)
[2017-08-12] MEDS: MAGNESIUM HYDROXIDE SUSP 30 ML CUP PO SCH (09:28)
[2017-08-12] MEDS: ALLOPURINOL 100 MG TAB PO SCH (09:28)
[2017-08-12] MEDS: PRAVASTATIN SOD 40 MG TAB PO SCH (09:28)
[2017-08-12] MEDS: CHLORHEXIDINE 0.12% (ORAL KIT) 15 ML CUP MT SCH (09:31)
--- NOTE | 2017-08-12 09:55 | HHI.NSPN ---
(Kathe Murphy) Note Status Status: Progress Note (Kathe Murphy) Interval History Interval History This is an 82-year-old gentleman who fell backwards off of a ladder approximately 10 feet. He underwent a brief round of CPR but was found to be spontaneously breathing so it was stopped patient was brought in the trauma bay hypertensive and confused he was intubated in the trauma bay. No seizure activity reported. No tongue biting. No incontinence of stool or urine. No tonic-clonic movements. He had unequal pupils and a coffee-ground emesis prior to intubation. He was upgraded to a level I trauma alert. He was resuscitated according to the ATLS protocol and full trauma workup was carried down. He was found to have right subarachnoid hemorrhage as well as subdural hematoma. He was given 2 units of platelets that for his platelet insufficiency due to Plavix. He was moving his extremities. Neurosurgical consultation was requested 07/31/17. Remains intubated and sedated. ICP monitor in place. A follow-up CT of the brain was obtained 08/01/17: intubated and sedated, ICPs below 10. 08/02/17: intubated, sedated. ICPs stable. f/u CT Brain yesterday showed slight increase in size of left subdural hematoma per Dr. Horne' review. decreasing renal function - nephrology consulted, also now with PVCs. 08/03/17: remains intubated, sedated on fentanyl and propofol drips. ICPs below 20. 08/04/17: ICPs stable overnight, f/u CT Brain this morning completed. intubated and sedated. 08/05/17: intubated and currently only minimally sedated, minimal eye opening when suctioned. 08/06 remains mechanically ventilated and sedated. Remains hypertensive despite numerous agents. Currently on second session of dialysis. 08/07. He vomited overnight and likely aspirated. Respiratory distress with increased Fio2 requirements. Maximal dose Cardene and Cardizem drips. Getting dialysis today 08/08: no change to his neuro exam. intubated, very minimal sedation - does not open eyes, withdraws to both feet. 08/09: intubated, off sedative drips. family in room, patient opening eyes, focusing today. for dialysis. 08/10: currently receiving dialysis, appears more drowsy today. EEG reports to moderate encephalopathy, no epileptiform activities. 08/11: opened eyes, tracked and looking around the room, remains intubated. 08/12: intubated, opens eyes appears to focus and track, gripped with left hand to command. (Kathe Murphy) Labs, Micro, & Vital Signs Results Date Time Temp Pulse Resp B/P (MAP) Pulse Ox O2 Delivery O2 Flow Rate FiO2 08/12/17 08:46 99 40 08/12/17 08:46 40 08/12/17 06:00 102 08/12/17 04:16 100 50 08/12/17 04:00 98.7 78 17 130/62 (84) 100 08/12/17 04:00 80 08/12/17 04:00 50 08/12/17 02:08 99 50 08/12/17 02:00 88 08/12/17 00:00 98.8 87 12 129/62 (84) 98 08/12/17 00:00 87 08/12/17 00:00 50 08/11/17 22:42 12 08/11/17 22:00 89 08/11/17 21:24 100 50 08/11/17 20:00 50 08/11/17 20:00 96 08/11/17 20:00 98.3 96 14 145/62 (89) 99 08/11/17 18:00 84 08/11/17 16:47 99 50 08/11/17 16:00 99.0 96 13 123/57 (79) 96 08/11/17 16:00 50 08/11/17 16:00 94 08/11/17 14:00 104 08/11/17 12:56 100 70 08/11/17 12:00 98.5 114 13 113/53 (73) 99 08/11/17 12:00 50 08/11/17 12:00 114 08/11/17 10:00 110 Constitutional Vital Signs Date Time Temp Pulse Resp B/P (MAP) Pulse Ox O2 Delivery O2 Flow Rate FiO2 08/12/17 08:46 99 40 08/12/17 08:46 40 08/12/17 06:00 102 08/12/17 04:16 100 50 08/12/17 04:00 98.7 78 17 130/62 (84) 100 08/12/17 04:00 80 08/12/17 04:00 50 08/12/17 02:08 99 50 08/12/17 02:00 88 08/12/17 00:00 98.8 87 12 129/62 (84) 98 08/12/17 00:00 87 08/12/17 00:00 50 08/11/17 22:42 12 08/11/17 22:00 89 08/11/17 21:24 100 50 08/11/17 20:00 50 08/11/17 20:00 96 08/11/17 20:00 98.3 96 14 145/62 (89) 99 08/11/17 18:00 84 08/11/17 16:47 99 50 08/11/17 16:00 99.0 96 13 123/57 (79) 96 08/11/17 16:00 50 08/11/17 16:00 94 08/11/17 14:00 104 08/11/17 12:56 100 70 08/11/17 12:00 98.5 114 13 113/53 (73) 99 08/11/17 12:00 50 08/11/17 12:00 114 08/11/17 10:00 110 (Kathe Murphy) Review of Systems ROS Limitations: Intubated (Kathe Murphy) Physical Exam Mr. Alonzo is intubated and without sedation. Opened eyes to light tactile stimulation, tracking and slightly focusing. Head: prior bolt site healing, steri-strips in place Cranial Nerves: Pupils right 2mm, left 3 mm round. Cervical Spine: soft, supple Motor: not following commands for testing, minimal withdraw both lower extremities to local stimuli, no response to pain in upper extremities Cerebellar: cannot be adequately assessed due to the patient's neurological condition. Heart: regular rate, rhythm Resp: clear, mechanically ventilated Skin: warm, dry (Kathe Murphy) Mr. Alonzo is intubated and without sedation. Opened eyes to light tactile stimulation, tracking and slightly focusing. Head: prior bolt site healing, steri-strips in place Cranial Nerves: Pupils right 2mm, left 3 mm round. Cervical Spine: soft, supple Motor: not following commands for testing, minimal withdraw both lower extremities to local stimuli, no response to pain in upper extremities Cerebellar: cannot be adequately assessed due to the patient's neurological condition. Heart: regular rate, rhythm Resp: clear, mechanically ventilated Skin: warm, dry (Les Horne MD) Medications Current Medications Current Medications Medications (Trade) Dose Ordered Sig/Juliet Route PRN Reason Start Time Stop Time Status Last Admin Dose Admin Sodium Chloride (NS Flush) 2 ml UNSCH PRN IV FLUSH FLUSH AFTER USING IV ACCESS 07/30/17 12:45 08/09/17 07:48 Ondansetron HCl (Zofran Inj) 4 mg Q6H PRN IV PUSH NAUSEA OR VOMITING 07/30/17 12:45 08/06/17 18:19 Miscellaneous Information 1 Q361D XX 07/30/17 12:45 Chlorhexidine Gluconate (Chlorhexidine 2% Cloth) Taper DAILY@04 TOP 07/31/17 04:00 07/27/18 03:59 08/12/17 04:00 Chlorhexidine Gluconate (Chlorhexidine 2% Cloth) 3 pack UNSCH PRN TOP HYGIENIC CARE 07/30/17 12:45 Chlorhexidine Gluconate (Peridex 0.12% Liq) 15 ml BID@08,20 MT 07/30/17 20:00 08/12/17 09:31 Famotidine (Pepcid) 10 mg BID PO 07/30/17 21:00 08/12/17 09:28 Pravastatin Sodium (Pravachol) 40 mg DAILY PO 07/31/17 09:00 08/12/17 09:28 Dextrose (D50w (Vial) Inj) 50 ml UNSCH PRN IV PUSH HYPOGLYCEMIA-SEE COMMENTS 07/31/17 07:45 Glucagon (Glucagon Inj) 1 mg UNSCH PRN OTHER HYPOGLYCEMIA-SEE COMMENTS 07/31/17 07:45 Senna/Docusate Sodium (Jackelyn-Colace) 1 tab BID PO 08/01/17 21:00 08/12/17 09:28 Bisacodyl (Dulcolax Supp) 10 mg DAILY PRN RECTAL Constipation 08/01/17 16:15 Insulin Aspart (NovoLOG SUPPLEMENTAL SCALE) 1 Q6HR SQ 08/01/17 18:00 08/12/17 00:00 Hydralazine HCl (Apresoline Inj) 10 mg Q4HR PRN IV PUSH SBP>160, DBP>90 08/04/17 12:30 08/09/17 08:54 Magnesium Hydroxide (Milk Of Magncrystal Liq) 30 ml BID PO 08/05/17 09:00 08/12/17 09:28 Metoclopramide HCl (Reglan Inj) 5 mg Q8HR IV PUSH 08/05/17 14:00 08/10/17 13:45 Heparin Sodium (Porcine) (Heparin Inj) 5,000 units Q8HR SQ 08/05/17 14:00 Future hold 08/11/17 21:41 Sodium Chloride 1,000 ml @ 0 mls/hr Q0M PRN OTHER For Prime & Rinse Back 08/05/17 13:51 Sodium Chloride 1,000 ml @ 200 mls/hr Q5H PRN IV WITH DIALYSIS 08/05/17 13:51 08/06/17 13:21 Sodium Chloride 1,000 ml @ 0 mls/hr Q0M PRN OTHER WITH DIALYSIS 08/05/17 13:51 Albumin Human 100 ml @ 60 mls/hr UNSCH PRN IV WITH DIALYSIS 08/05/17 14:00 08/10/17 09:14 Sodium Chloride (NS Flush) 5 ml UNSCH PRN IV FLUSH WITH DIALYSIS 08/05/17 14:00 Heparin Sodium (Porcine) (Heparin Inj) UNSCH PRN .XX WITH DIALYSIS 08/05/17 14:00 08/10/17 09:14 Gentamicin Sulfate (Gentamicin Inj) 20 mg UNSCH PRN OTHER WITH DIALYSIS 08/05/17 14:00 08/10/17 09:14 Ondansetron HCl (Zofran Inj) 4 mg UNSCH PRN IV PUSH WITH DIALYSIS 08/05/17 14:00 Acetaminophen (Tylenol) 650 mg UNSCH PRN PO for headach, pain, temp > 101F 08/05/17 14:00 08/11/17 21:42 Diphenhydramine HCl (Benadryl) 25 mg UNSCH PRN PO for hives/itching/anaphylaxis 08/05/17 14:00 Nitroglycerin (Nitrostat Sl) 0.4 mg UNSCH PRN SL CHEST PAIN 08/05/17 14:00 Clonidine (Catapres) 0.1 mg UNSCH PRN PO for BP > 180/100 X 2 readings 08/05/17 14:00 08/08/17 01:57 Gelatin (Gelfoam 12 Mm/7 Mm Top) 1 foam UNSCH PRN TOP SEE LABEL COMMENTS 08/05/17 14:00 Nicardipine HCl 50 mg/Sodium Chloride 500 ml @ 50 mls/hr TITRATE PRN IV Blood pressure management 08/06/17 00:15 08/09/17 18:14 Albuterol Sulfate (Albuterol Neb) 2.5 mg Q2HR NEB PRN NEB dyspnea 08/06/17 09:45 Amlodipine Besylate (Norvasc) 10 mg DAILY PO 08/07/17 09:00 08/12/17 09:28 Hydralazine HCl (Apresoline) 100 mg Q8HR PO 08/06/17 14:00 08/12/17 06:34 Lactulose (Lactulose Liq) 30 ml QID PO 08/06/17 13:00 08/12/17 09:28 Polyethylene Glycol (Miralax) 17 gm BID NG 08/06/17 21:00 08/09/17 07:47 Allopurinol (Zyloprim) 100 mg DAILY PO 08/07/17 09:00 08/12/17 09:28 Terazosin HCl (Hytrin) 7 mg BID NG 08/06/17 13:30 08/12/17 09:27 Metoprolol Tartrate (Lopressor Inj) 2.5 mg Q6H PRN IV PUSH HR >120 08/07/17 07:45 08/08/17 08:35 Carvedilol (Coreg) 12.5 mg Q12HR PO 08/08/17 09:00 08/12/17 09:28 Diltiazem HCl (Cardizem) 90 mg Q6HR PO 08/09/17 12:00 08/12/17 06:34 Albuterol/ Ipratropium (Duoneb Neb) 1 ampule Q6HR NEB NEB 08/09/17 16:00 08/12/17 08:52 Clonidine (Catapres) 0.3 mg Q8HR PO 08/09/17 14:00 08/12/17 06:34 Miscellaneous Information 2 Q7D T-DERMAL 08/12/17 11:00 Clonidine (Catapres-Tts 0.3 Mg Patch.7d) 2 patch Q7D T-DERMAL 08/09/17 12:00 08/09/17 11:13 Bumetanide (Bumetanide) 1 mg BID@09,18 NG 08/10/17 18:00 08/12/17 09:27 Cefepime HCl 1000 mg/Sodium Chloride 100 ml @ 200 mls/hr Q12H IV 08/11/17 21:00 08/12/17 09:28 (Kathe Murphy) Current Medications Current Medications Ondansetron HCl (Zofran Inj) 4 mg STK-MED ONCE .ROUTE ; Start 07/30/17 at 11:55; Stop 07/30/17 at 11:56; Status DC Propofol 100 ml @ As Directed STK-MED ONCE .ROUTE ; Start 07/30/17 at 12:04; Stop 07/30/17 at 12:05; Status DC Nicardipine HCl (Cardene Inj) 25 mg STK-MED ONCE .ROUTE ; Start 07/30/17 at 12:08 ; Stop 07/30/17 at 12:09; Status DC Sodium Chloride 1,000 ml @ 60 mls/hr [id number] IV Last administered on 08/01/17at 08:45; Start 07/30/17 at 12:31; Stop 08/01/17 at 11:50; Status DC Sodium Chloride (NS Flush) 2 ml UNSCH PRN IV FLUSH FLUSH AFTER USING IV ACCESS Last administered on 08/09/17at 07:48; Start 07/30/17 at 12:45; Stop 08/12/17 at 21:17; Status DC Ondansetron HCl (Zofran Inj) 4 mg Q6H PRN IV PUSH NAUSEA OR VOMITING Last administered on 08/06/17at 18:19; Start 07/30/17 at 12:45; Stop 08/12/17 at 21:17 ; Status DC Multivitamins 10 ml/Thiamine HCl 100 mg/Folic Acid 1 mg/Sodium Chloride 511.2 ml @ 125 mls/hr Q24H IV Last administered on 08/01/17at 15:19; Start 07/30/17 at 15:00; Stop 08/01/17 at 19:06; Status DC Docusate Sodium (Colace) 100 mg BID PO Last administered on 08/01/17at 08:44; Start 07/30/17 at 21:00; Stop 08/01/17 at 16:11; Status DC Magnesium Hydroxide (Milk Of Magnesia Liq) 30 ml Q6H PRN PO CONSTIPATION; Start 07/30/17 at 12:45; Stop 08/01/17 at 16:11; Status DC Miscellaneous Information 1 Q361D XX ; Start 07/30/17 at 12:45; Stop 08/12/17 at 21:17; Status DC Chlorhexidine Gluconate (Chlorhexidine 2% Cloth) Taper DAILY@04 TOP Last administered on 08/12/17at 04:00; Start 07/31/17 at 04:00; Stop 08/12/17 at 21:17 ; Status DC Chlorhexidine Gluconate (Chlorhexidine 2% Cloth) 3 pack UNSCH PRN TOP HYGIENIC CARE; Start 07/30/17 at 12:45; Stop 08/12/17 at 21:17; Status DC Propofol 100 ml @ 0 mls/hr TITRATE PRN IV SEDATION; Start 07/30/17 at 13:00; Stop 07/30/17 at 13:30; Status DC Chlorhexidine Gluconate (Peridex 0.12% Liq) 15 ml BID@08,20 MT Last administered on 08/12/17at 09:31; Start 07/30/17 at 20:00; Stop 08/12/17 at 21:17 ; Status DC Propofol 100 ml @ 0 mls/hr TITRATE PRN IV SEDATION; Start 07/30/17 at 13:00; Stop 07/30/17 at 13:00; Status DC Fentanyl Citrate 250 ml TITRATE PRN IV SEDATION; Start 07/30/17 at 13:00; Stop 07/30/17 at 13:00; Status DC Fentanyl Citrate 250 ml TITRATE PRN IV SEDATION; Start 07/30/17 at 13:00; Stop 07/30/17 at 13:30; Status DC Albuterol/ Ipratropium (Duoneb Neb) 1 ampule Q6HR NEB NEB Last administered on 08/02/17at 20:40; Start 07/30/17 at 16:00; Stop 08/02/17 at 20:55; Status DC Diphtheria/ Tetanus/Acell Pertussis (Boostrix Inj) 0.5 ml STK-MED ONCE IM ; Start 07/30/17 at 12:58; Stop 07/30/17 at 12:59; Status DC Etomidate (Amidate Inj) 20 mg STK-MED ONCE .ROUTE ; Start 07/30/17 at 13:01; Stop 07/30/17 at 13:02; Status DC Succinylcholine Chloride (Quelicin Inj) 200 mg STK-MED ONCE .ROUTE ; Start at 13:01; Stop 07/30/17 at 13:02; Status DC Fentanyl Citrate 250 ml @ 5 mls/hr TITRATE PRN IV Sedation Last administered on 08/05/17at 22:20; Start 07/30/17 at 13:30; Stop 08/07/17 at 16:32; Status DC Propofol 100 ml @ 2.64 mls/hr TITRATE PRN IV SEDATION Last administered on 05/16at 06:03; Start 07/30/17 at 13:30; Stop 08/09/17 at 10:23; Status DC Famotidine (Pepcid) 10 mg BID PO Last administered on 08/12/17at 09:28; Start at 21:00; Stop 08/12/17 at 11:23; Status DC Nicardipine HCl 25 mg/Sodium Chloride 250 ml @ 50 mls/hr TITRATE PRN IV Blood pressure management Last administered on 08/05/17at 22:23; Start 07/30/17 at 16:15 ; Stop 08/06/17 at 00:11; Status DC Spironolactone (Aldactone) 25 mg DAILY PO Last administered on 08/01/17at 08:44; Start 07/31/17 at 09:00; Stop 08/01/17 at 09:54; Status DC Pravastatin Sodium (Pravachol) 40 mg DAILY PO Last administered on 08/12/17at 09 :28; Start 07/31/17 at 09:00; Stop 08/12/17 at 11:23; Status DC Metoprolol Tartrate (Lopressor) 25 mg Q12HR PO Last administered on 08/03/17at 20 :33; Start 07/31/17 at 09:00; Stop 08/04/17 at 09:36; Status DC Hydralazine HCl (Apresoline) 25 mg Q12HR PO Last administered on 07/31/17at 07:42 ; Start 07/31/17 at 09:00; Stop 07/31/17 at 09:00; Status DC Furosemide (Lasix Inj) 40 mg BID@09,18 IV PUSH Last administered on 08/02/17at 10 :33; Start 07/31/17 at 09:00; Stop 08/02/17 at 13:29; Status DC Dextrose (D50w (Vial) Inj) 50 ml UNSCH PRN IV PUSH HYPOGLYCEMIA-SEE COMMENTS; Start 07/31/17 at 07:45; Stop 08/12/17 at 21:17; Status DC Glucagon (Glucagon Inj) 1 mg UNSCH PRN OTHER HYPOGLYCEMIA-SEE COMMENTS; Start 07/31/17 at 07:45; Stop 08/12/17 at 21:17; Status DC Insulin Aspart (NovoLOG SUPPLEMENTAL SCALE) 1 Q6H SQ ; Start 07/31/17 at 07:45; Stop 08/01/17 at 17:31; Status DC Sodium Chloride 250 ml @ 15 mls/hr ONCE ONCE IV Last administered on at 10:55; Start 07/31/17 at 08:15; Stop 08/01/17 at 00:54; Status DC Terazosin HCl (Hytrin) 10 mg HS PO Last administered on 08/05/17at 20:12; Start 07/31/17 at 21:00; Stop 08/06/17 at 13:26; Status DC Hydralazine HCl (Apresoline) 100 mg Q12HR PO Last administered on 08/05/17at 20: 13; Start 07/31/17 at 09:00; Stop 08/06/17 at 09:42; Status DC Levetriacetam 500 mg/Sodium Chloride 105 ml @ 420 mls/hr Q12HR IV Last administered on 08/06/17at 07:57; Start 08/01/17 at 10:00; Stop 08/06/17 at 09:42 ; Status DC Dextrose 1,000 ml @ 42 mls/hr [id number] IV Last administered on 08/01/17at 13:09; Start 08/01/17 at 12:00; Stop 08/01/17 at 16:51; Status DC Chlorothiazide Sodium (Diuril Inj) 250 mg Q12H IV Last administered on at 13:15; Start 08/01/17 at 13:00; Stop 08/02/17 at 13:29; Status DC Clonidine (Catapres-Tts 0.2 Mg Patch.7d) 1 patch Q7D T-DERMAL ; Start 08/01/17 at 13:30; Stop 08/01/17 at 15:09; Status DC Clonidine (Catapres-Tts 0.2 Mg Patch.7d) 1 patch Q7D T-DERMAL ; Start 08/01/17 at 16:00; Stop 08/01/17 at 17:30; Status DC Miscellaneous Information 1 Q7D T-DERMAL ; Start 08/08/17 at 16:00; Stop at 16:00; Status DC Senna/Docusate Sodium (Jackelyn-Colace) 1 tab BID PO Last administered on at 09:28; Start 08/01/17 at 21:00; Stop 08/12/17 at 11:23; Status DC Lactulose (Lactulose Liq) 30 ml DAILY PO Last administered on 08/09/17at 07:47; Start 08/01/17 at 16:15; Stop 08/09/17 at 10:39; Status DC Bisacodyl (Dulcolax Supp) 10 mg DAILY PRN RECTAL Constipation; Start 08/01/17 at 16:15; Stop 08/12/17 at 21:17; Status DC Clonidine (Catapres-Tts 0.2 Mg Patch.7d) 1 patch Q7D T-DERMAL Last administered on 08/01/17at 20:31; Start 08/01/17 at 20:00; Stop 08/05/17 at 09:18; Status DC Miscellaneous Information 1 Q7D T-DERMAL ; Start 08/01/17 at 20:00; Stop 08/05/17 at 09:18; Status DC Insulin Aspart (NovoLOG SUPPLEMENTAL SCALE) 1 Q6HR SQ Last administered on 08/12at 00:00; Start 08/01/17 at 18:00; Stop 08/12/17 at 21:17; Status DC Sodium Bicarbonate (Sodium Bicarbonate 8.4% Inj) 50 meq UNSCH X1 IV Last administered on 08/02/17at 05:41; Start 08/02/17 at 05:45; Stop 08/02/17 at 08:20; Status DC Chlorothiazide Sodium (Diuril Inj) 500 mg Q12H IV Last administered on 01:08; Start 08/03/17 at 01:00; Stop 08/09/17 at 10:41; Status DC Furosemide (Lasix Inj) 80 mg BID@18 IV PUSH Last administered on 08/04/17at 18 :34; Start 08/02/17 at 18:00; Stop 08/04/17 at 19:28; Status DC Albuterol/ Ipratropium (Duoneb Neb) 1 ampule Q6HR NEB NEB Last administered on 08/06/17at 07:52; Start 08/02/17 at 22:00; Stop 08/06/17 at 09:35; Status DC Metoprolol Tartrate (Lopressor Inj) 5 mg Q6H IV PUSH Last administered on 09:24; Start 08/04/17 at 10:00; Stop 08/09/17 at 10:06; Status DC Hydralazine HCl (Apresoline Inj) 10 mg Q4HR PRN IV PUSH SBP>160, DBP>90 Last administered on 08/09/17at 08:54; Start 08/04/17 at 12:30; Stop 08/12/17 at 21:17 ; Status DC Furosemide (Lasix Inj) 80 mg Q8HR IV PUSH Last administered on 08/10/17at 13:44 ; Start 08/04/17 at 22:00; Stop 08/10/17 at 17:37; Status DC Sodium Bicarbonate (Sodium Bicarbonate 8.4% Inj) 100 meq STK-MED ONCE .ROUTE Last administered on 08/05/17 05:25; Start 08/05/17 at 05:25; Stop 08/05/17 at 05: 26; Status DC Bisacodyl (Dulcolax Supp) 10 mg ONCE ONCE RECTAL Last administered on 08:03; Start 08/05/17 at 07:45; Stop 08/05/17 at 07:46; Status DC Magnesium Hydroxide (Milk Of Magnesia Liq) 30 ml BID PO Last administered on at 09:28; Start 08/05/17 at 09:00; Stop 08/12/17 at 11:23; Status DC Clonidine (Catapres-Tts 0.3 Mg Patch.7d) 1 patch Q7D T-DERMAL Last administered on 08/05/17at 11:49; Start 08/05/17 at 11:00; Stop 08/09/17 at 10:08; Status DC Metoclopramide HCl (Reglan Inj) 5 mg Q8HR IV PUSH Last administered on at 13:45; Start 08/05/17 at 14:00; Stop 08/12/17 at 21:17; Status DC Amlodipine Besylate (Norvasc) 5 mg DAILY PO Last administered on 08/05/17at 09:18 ; Start 08/05/17 at 09:15; Stop 08/06/17 at 09:42; Status DC Dextrose (D50w (Syr) Inj) 50 ml ONCE ONCE IV PUSH Last administered on at 10:44; Start 08/05/17 at 09:15; Stop 08/05/17 at 09:16; Status DC Insulin Human Regular (NovoLIN R INJ) 10 units ONCE ONCE IV PUSH Last administered on 08/05/17at 10:53; Start 08/05/17 at 09:15; Stop 08/05/17 at 09:16; Status DC Sodium Polystyrene Sulfonate (Kayexalate Liq) 15 gm Q2HR PO Last administered on 08/05/17at 15:02; Start 08/05/17 at 10:00; Stop 08/05/17 at 14:02; Status DC Heparin Sodium (Porcine) (Heparin Inj) 5,000 units Q8HR SQ Last administered on 08/11/17at 21:41; Start 08/05/17 at 14:00; Stop 08/12/17 at 21:17; Status DC Miscellaneous Information 1 Q7D T-DERMAL ; Start 08/12/17 at 11:00; Stop at 11:00; Status DC Sodium Chloride 1,000 ml @ 0 mls/hr Q0M PRN OTHER For Prime & Rinse Back; Start 08/05/17 at 13:51; Stop 08/12/17 at 21:17; Status DC Sodium Chloride 1,000 ml @ 200 mls/hr Q5H PRN IV WITH DIALYSIS Last administered on 08/06/17at 13:21; Start 08/05/17 at 13:51; Stop 08/12/17 at 21:17 ; Status DC Sodium Chloride 1,000 ml @ 0 mls/hr Q0M PRN OTHER WITH DIALYSIS; Start 08/05/17 at 13:51; Stop 08/12/17 at 21:17; Status DC Albumin Human 100 ml @ 60 mls/hr UNSCH PRN IV WITH DIALYSIS Last administered on 08/10/17at 09:14; Start 08/05/17 at 14:00; Stop 08/12/17 at 21:17; Status DC Sodium Chloride (NS Flush) 5 ml UNSCH PRN IV FLUSH WITH DIALYSIS; Start at 14:00; Stop 08/12/17 at 21:17; Status DC Heparin Sodium (Porcine) (Heparin Inj) UNSCH PRN .XX WITH DIALYSIS Last administered on 08/10/17at 09:14; Start 08/05/17 at 14:00; Stop 08/12/17 at 21:17 ; Status DC Gentamicin Sulfate (Gentamicin Inj) 20 mg UNSCH PRN OTHER WITH DIALYSIS Last administered on 08/10/17at 09:14; Start 08/05/17 at 14:00; Stop 08/12/17 at 21:17 ; Status DC Ondansetron HCl (Zofran Inj) 4 mg UNSCH PRN IV PUSH WITH DIALYSIS; Start at 14:00; Stop 08/12/17 at 21:17; Status DC Acetaminophen (Tylenol) 650 mg UNSCH PRN PO for headach, pain, temp > 101F Last administered on 08/11/17at 21:42; Start 08/05/17 at 14:00; Stop 08/12/17 at 21:17; Status DC Diphenhydramine HCl (Benadryl) 25 mg UNSCH PRN PO for hives/itching/anaphylaxis ; Start 08/05/17 at 14:00; Stop 08/12/17 at 11:24; Status DC Nitroglycerin (Nitrostat Sl) 0.4 mg UNSCH PRN SL CHEST PAIN; Start 08/05/17 at 14:00; Stop 08/12/17 at 21:17; Status DC Clonidine (Catapres) 0.1 mg UNSCH PRN PO for BP > 180/100 X 2 readings Last administered on 08/08/17at 01:57; Start 08/05/17 at 14:00; Stop 08/12/17 at 11:24 ; Status DC Gelatin (Gelfoam 12 Mm/7 Mm Top) 1 foam UNSCH PRN TOP SEE LABEL COMMENTS; Start 08/05/17 at 14:00; Stop 08/12/17 at 21:17; Status DC Heparin Sodium (Porcine) (Heparin Inj) 10,000 units NOW ONCE IV PUSH Last administered on 08/05/17at 17:10; Start 08/05/17 at 17:00; Stop 08/05/17 at 17:07; Status DC Nicardipine HCl 50 mg/Sodium Chloride 500 ml @ 50 mls/hr TITRATE PRN IV Blood pressure management Last administered on 08/09/17at 18:14; Start 08/06/17 at 00: 15; Stop 08/12/17 at 21:17; Status DC Albuterol/ Ipratropium (Duoneb Neb) 1 ampule Q6HR NEB NEB Last administered on 08/09/17at 08:58; Start 08/06/17 at 10:00; Stop 08/09/17 at 10:05; Status DC Albuterol Sulfate (Albuterol Neb) 2.5 mg Q2HR NEB PRN NEB dyspnea; Start at 09:45; Stop 08/12/17 at 21:17; Status DC Amlodipine Besylate (Norvasc) 10 mg DAILY PO Last administered on 08/12/17at 09: 28; Start 08/07/17 at 09:00; Stop 08/12/17 at 11:24; Status DC Hydralazine HCl (Apresoline) 100 mg Q8HR PO Last administered on 08/12/17at 06: 34; Start 08/06/17 at 14:00; Stop 08/12/17 at 21:17; Status DC Levetriacetam (Keppra Liq) 500 mg Q12HR NG Last administered on 08/08/17at 08: 33; Start 08/06/17 at 21:00; Stop 08/08/17 at 10:14; Status DC Lactulose (Lactulose Liq) 30 ml QID PO Last administered on 08/12/17at 09:28; Start 08/06/17 at 13:00; Stop 08/12/17 at 11:24; Status DC Polyethylene Glycol (Miralax) 17 gm BID NG Last administered on 08/09/17at 07:47 ; Start 08/06/17 at 21:00; Stop 08/12/17 at 11:24; Status DC Mineral Oil (Kondremul Liq) 30 ml ONCE ONCE PO Last administered on 08/06/17at 14:44; Start 08/06/17 at 09:45; Stop 08/06/17 at 10:42; Status DC Glycerin (Glycerin Adult Supp) 2 gm ONCE ONCE RECTAL Last administered on 08/06at 14:44; Start 08/06/17 at 09:45; Stop 08/06/17 at 10:40; Status DC Methylnaltrexone Ellery (Relistor Inj) 12 mg ONCE ONCE SQ Last administered on 08/06/17at 14:44; Start 08/06/17 at 09:45; Stop 08/06/17 at 10:42; Status DC Allopurinol (Zyloprim) 100 mg DAILY PO Last administered on 08/12/17at 09:28; Start 08/07/17 at 09:00; Stop 08/12/17 at 11:24; Status DC Terazosin HCl (Hytrin) 7 mg BID NG Last administered on 08/12/17at 09:27; Start 08/06/17 at 13:30; Stop 08/12/17 at 11:24; Status DC Diltiazem HCl (Cardizem Inj) 20 mg ONCE ONCE IV PUSH ; Start 08/06/17 at 22:45 ; Stop 08/06/17 at 22:46; Status Cancel Diltiazem HCl 125 mg/Sodium Chloride 125 ml @ 5 mls/hr TITRATE PRN IV Tachycardia Last administered on 08/09/17at 08:03; Start 08/06/17 at 22:45; Stop 08/09/17 at 10:13; Status DC Diltiazem HCl (Cardizem Inj) 20 mg ONCE ONCE IV Last administered on at 23:25; Start 08/06/17 at 23:30; Stop 08/06/17 at 23:31; Status DC Mannitol 100 ml @ As Directed STK-MED ONCE .ROUTE ; Start 08/07/17 at 07:16; Stop 08/07/17 at 07:17; Status DC Sodium Bicarbonate (Sodium Bicarbonate 8.4% Inj) 50 meq NOW ONCE IV Last administered on 08/07/17at 07:51; Start 08/07/17 at 07:45; Stop 08/07/17 at 07:46 ; Status DC Diltiazem HCl (Cardizem Inj) 25 mg STK-MED ONCE .ROUTE Last administered on 04/16at 07:51; Start 08/07/17 at 07:36; Stop 08/07/17 at 07:37; Status DC Sodium Bicarbonate (Sodium Bicarbonate 8.4% Inj) 50 meq ONCE ONCE IV PUSH ; Start 08/07/17 at 08:30; Stop 08/07/17 at 08:31; Status DC Metoprolol Tartrate (Lopressor Inj) 2.5 mg Q6H PRN IV PUSH HR >120 Last administered on 08/08/17at 08:35; Start 08/07/17 at 07:45; Stop 08/12/17 at 11:24 ; Status DC Cefepime HCl 1000 mg/Sodium Chloride 100 ml @ 200 mls/hr Q12H IV Last administered on 08/09/17at 09:24; Start 08/07/17 at 10:00; Stop 08/09/17 at 14:53 ; Status DC Vancomycin HCl 1000 mg/Sodium Chloride 250 ml @ 250 mls/hr ONCE ONCE IV Last administered on 08/07/17at 10:34; Start 08/07/17 at 09:00; Stop 08/07/17 at 09:59 ; Status DC Diltiazem HCl (Cardizem Inj) 15 mg ONCE ONCE IV ; Start 08/07/17 at 08:30; Stop 08/07/17 at 08:31; Status DC Carvedilol (Coreg) 12.5 mg Q12HR PO Last administered on 08/12/17at 09:28; Start 08/08/17 at 09:00; Stop 08/12/17 at 11:24; Status DC Potassium Chloride 100 ml @ 50 mls/hr NOW ONCE IV Last administered on at 11:54; Start 08/08/17 at 11:00; Stop 08/08/17 at 12:59; Status DC Chlorothiazide (Diuril) 500 mg Q12H G-TUBE Last administered on 08/10/17at 13:45 ; Start 08/09/17 at 03:15; Stop 08/10/17 at 17:37; Status DC Potassium Chloride (KCl) 20 meq NOW ONCE PO Last administered on 08/09/17at 09: 24; Start 08/09/17 at 09:30; Stop 08/09/17 at 09:31; Status DC Potassium Chloride 100 ml @ 25 mls/hr ONCE ONCE IV Last administered on at 09:24; Start 08/09/17 at 09:30; Stop 08/09/17 at 13:29; Status DC Diltiazem HCl (Cardizem) 90 mg Q6HR PO Last administered on 08/12/17at 06:34; Start 08/09/17 at 12:00; Stop 08/12/17 at 11:24; Status DC Albuterol/ Ipratropium (Duoneb Neb) 1 ampule Q6HR NEB NEB Last administered on 08/12/17at 08:52; Start 08/09/17 at 16:00; Stop 08/12/17 at 21:17; Status DC Clonidine (Catapres) 0.3 mg Q8HR PO Last administered on 08/12/17at 06:34; Start 08/09/17 at 14:00; Stop 08/12/17 at 11:24; Status DC Miscellaneous Information 2 Q7D T-DERMAL ; Start 08/12/17 at 11:00; Stop at 21:17; Status DC Clonidine (Catapres-Tts 0.3 Mg Patch.7d) 2 patch Q7D T-DERMAL Last administered on 08/09/17at 11:13; Start 08/09/17 at 12:00; Stop 08/12/17 at 21:17 ; Status DC Vancomycin HCl 1000 mg/Sodium Chloride 250 ml @ 250 mls/hr ONCE ONCE IV Last administered on 08/09/17at 11:32; Start 08/09/17 at 11:00; Stop 08/09/17 at 11:59 ; Status DC Pharmacy Profile Note 0 ml @ 0 mls/hr UNSCH OTHER ; Start 08/09/17 at 10:30; Stop 08/10/17 at 08:13; Status DC Cefepime HCl 1000 mg/Sodium Chloride 100 ml @ 200 mls/hr Q24H IV Last administered on 08/11/17at 07:32; Start 08/10/17 at 09:00; Stop 08/11/17 at 10:03 ; Status DC Bumetanide (Bumetanide) 1 mg BID@09,18 NG Last administered on 08/12/17at 09:27 ; Start 08/10/17 at 18:00; Stop 08/12/17 at 11:24; Status DC Cefepime HCl 1000 mg/Sodium Chloride 100 ml @ 200 mls/hr Q12H IV Last administered on 08/12/17at 09:28; Start 08/11/17 at 21:00; Stop 08/12/17 at 21:17 ; Status DC Vancomycin HCl 1000 mg/Sodium Chloride 250 ml @ 250 mls/hr ONCE ONCE IV Last administered on 08/11/17at 15:57; Start 08/11/17 at 15:45; Stop 08/11/17 at 16:44 ; Status DC Hydromorphone HCl (Dilaudid Pf Inj) 1 mg ONCE ONCE IV PUSH Last administered on 08/12/17at 12:17; Start 08/12/17 at 11:30; Stop 08/12/17 at 11:49; Status DC Lorazepam (Ativan Inj) 2 mg ONCE ONCE IV PUSH Last administered on 08/12/17at 12:20; Start 08/12/17 at 11:30; Stop 08/12/17 at 11:49; Status DC Hyoscyamine Sulfate (Levsin Inj) 0.25 mg ONCE ONCE IV PUSH Last administered on 08/12/17at 11:30; Start 08/12/17 at 11:30; Stop 08/12/17 at 11:49; Status DC Hydromorphone HCl (Dilaudid Pf Inj) 0.75 mg ONCE ONCE IV PUSH Last administered on 08/12/17at 15:34; Start 08/12/17 at 11:45; Stop 08/12/17 at 11:49 ; Status DC Lorazepam (Ativan Inj) 2 mg ONCE ONCE IV PUSH ; Start 08/12/17 at 11:45; Stop 08/12/17 at 11:49; Status DC Hydromorphone HCl (Dilaudid Pf Inj) 0.75 mg Q30M PRN IV PUSH SEE LABEL COMMENTS Last administered on 08/12/17at 15:32; Start 08/12/17 at 12:00; Stop at 21:17; Status DC Hydromorphone HCl (Dilaudid Pf Inj) 1 mg Q30M PRN IV PUSH SEE LABEL COMMENTS; Start 08/12/17 at 12:00; Stop 08/12/17 at 21:17; Status DC Lorazepam (Ativan Inj) 1 mg Q4HR IV PUSH Last administered on 08/12/17at 13:45; Start 08/12/17 at 12:00; Stop 08/12/17 at 21:17; Status DC Lorazepam (Ativan Inj) 1 mg Q1H PRN IV PUSH SEE LABEL COMMENTS Last administered on 08/12/17at 16:25; Start 08/12/17 at 12:00; Stop 08/12/17 at 21:17 ; Status DC Lorazepam (Ativan Inj) 2 mg Q1H PRN IV PUSH SEE LABEL COMMENTS; Start 08/12/17 at 12:00; Stop 08/12/17 at 21:17; Status DC Lorazepam (Ativan Inj) 2 mg Q15M PRN IV PUSH SEIZURES; Start 08/12/17 at 12:00 ; Stop 08/12/17 at 21:17; Status DC Hyoscyamine Sulfate (Levsin Inj) 0.25 mg Q4H PRN IV PUSH SECRETIONS; Start at 12:00; Stop 08/12/17 at 21:17; Status DC (Les Horne MD) Medical Decision Making MDM Remarks 82-year-old gentleman who fell backwards off of a ladder approximately 10 feet TBI, s/p placement of intracranial pressure monitor with stable ICPs CT Brain 07/31/17: increase in the size of the left subdural hematoma. Stable right subdural hematoma. Increase in size of the right temporal tip hematoma. Stable size left temporal hematoma 08/02/27: Stable intraparenchymal, subdural, and intraventricular hemorrhage. No midline shift or new sites of hemorrhage. 08/04/17 reports Stable intracranial findings including bilateral subdural hematomas, intraventricular blood products, and bilateral temporal lobe hemorrhagic contusions There is no midline shift or herniation. Ventricles are stable in size. neuro exam improving - off sedatives, opening eyes and focusing from 08/09/17, however no medical improvement overall in his kidney function (Kathe Murphy) Plan Plan Remarks cont current care cont serial neuro checks and f/u neuro exam cont mgt per trauma and critical care Dr. Horne dw daughter in room (Kathe Murphy) Attending Statement Continue neuro checks Continue Dialysis Pulmonary. Continue full mechanical ventilation in Assist control mode of ventilation aggressive pulmonary toilette, nasotracheal suction, and breathing treatments with nebulizers. Daily PT and OT Renal. monitor closely urine output, BUN and creatinine Endocrine.Monitor serial Acu checks and SSI as needed in detail ID monitor for signs of infection Protonix for stress ulcer prophylaxis Gilbert hose and SCD's for DVT prophylaxis Further recommendations will be provided depending on the patient's clinical evaluation and follow up studies The exam, history, and the medical decision-making described in the above note were completed with the assistance of the mid-level provider. I reviewed and agree with the findings presented. I attest that I had a [id number] encounter with the patient on the same day, and personally performed and documented my assessment and findings in the medical record. (Les Horne MD) Kathe Murphy Aug 12, 2017 09:55 Les Horne MD Aug 15, 2017 10:48
--- NOTE | 2017-08-12 10:18 | HHI.HCPN ---
Reason for visit a. To assist with evaluation and management of symptoms including: pain, dyspnea, encephalopathy b. To assist medical decision maker(s) with: better understanding of current medical conditions; weighing benefits/burdens of medical treatment options; making medical treatment decisions. . Subjective/Interval History Since seen today for follow-up on comfort, goals, planned transition to comfort focus. Patient remains on mechanical vent- on CPAP fio2 40% at 8am. Sedation has been off for several days. +eye opening, withdrawal BLE to touch. BC 08/09 no growth. No HD yesterday or today per family request , d/t planned withdrawal. UOP 375mL/ 24 hr. BUN 67/creatinine 3.93 Patient examined in room no visitors present, nursing informs no family in yet.Pt w eyes open spont. does not track examiner. + movement to touch bilateral feet. No response from uppers. Does not follow commands. RR23-24 on CPAP vent. D/w nurse, she will call me when family arrives. Ventilator withdrawal comfort orders to be entered when family arrives. Copies of written advanced directives, designation of healthcare surrogate form , have not yet been provided by the family. Per [place] statutes, in the absence of written advanced directives healthcare proxy decision making falls to the patient's . If she is unable to fulfill this role, then healthcare proxy decision making. The majority of the patient's 4 adult children.(Prior interactions with have noted that she appears to have cognitive impairments and may not be able to fully participate in decision-making) . . Family/friend interactions 1100 Additional family arrival: Daughters, son, , other extended family. Review with them condition, prognosis daughters indicate they wish to continue with planned withdrawal of life support in transition to comfort focus is consistent with patient known wishes. initially deferring to sign exhibits to her daughter Danielle. Review healthcare power of corporate associate attorney documentation which names as first, daughter Danielle is secondary. Daughter Danielle signed exhibits, patient later also requested to sign in as well. does appear to have mild cognitive deficits and very limited to poor short- term memory. Provided anticipatory guidance, elastic attacher chainstitch notified, provided spiritual support at bedside. Comfort orders entered, review with primary nurse. . Advance Directives Advance Directive Specifics Documented care wishes: Patient reportedly has completed written advanced directives. Son, Darryn, will bring copies of documentation to the hospital tomorrow 08/04/2017 so that copies can be placed in the patient's chart and scanned into the EMR. . Objective Vital Signs Date Time Temp Pulse Resp B/P (MAP) Pulse Ox O2 Delivery O2 Flow Rate FiO2 08/12/17 08:46 99 40 08/12/17 08:46 40 08/12/17 06:00 102 08/12/17 04:16 100 50 08/12/17 04:00 98.7 78 17 130/62 (84) 100 08/12/17 04:00 80 08/12/17 04:00 50 08/12/17 02:08 99 50 08/12/17 02:00 88 08/12/17 00:00 98.8 87 12 129/62 (84) 98 08/12/17 00:00 87 08/12/17 00:00 50 08/11/17 22:42 12 08/11/17 22:00 89 08/11/17 21:24 100 50 08/11/17 20:00 50 08/11/17 20:00 96 08/11/17 20:00 98.3 96 14 145/62 (89) 99 08/11/17 18:00 84 08/11/17 16:47 99 50 08/11/17 16:00 99.0 96 13 123/57 (79) 96 08/11/17 16:00 50 08/11/17 16:00 94 08/11/17 14:00 104 08/11/17 12:56 100 70 08/11/17 12:00 98.5 114 13 113/53 (73) 99 08/11/17 12:00 50 08/11/17 12:00 114 Intake & Output 08/12/17 08/12/17 07:00 19:00 Intake Total 787 ml Output Total 175 ml Balance 612 ml IV Total 685 ml Tube Feeding 102 ml Output Urine Total 175 ml Stool Total 0 ml Physical Exam CONSTITUTIONAL/GENERAL: This is an adequately nourished elderly, male patient intubated on mechanical ventilation TUBES/LINES/DRAINS: PIV bue, central and left subclavian, hemodialysis catheter right IJ ,Dockery catheter, ETT, OGT SKIN: No jaundice, rashes, or lesions. Skin warm/dry HEAD: Atraumatic. Normocephalic. EYES: Eyes open spontaneously. Pupils left greater than right 3 mm left, 2 mm right, questionable reaction to light. No scleral icterus. No injection or drainage. Fundi not examined. CARDIOVASCULAR: Irregularly irregular without murmur. afib observed bedside monitor. Peripheral pulses symmetric-faint. 2+Generalized edema, especially to lower extremities RESPIRATORY/CHEST: Intubated on mechanical ventilation. + course scattered rhonchi. On cpap, RR 23-24 GASTROINTESTINAL: Abdomen soft, round, no apparent tenderness, nondistended. Bowel sounds normoactive. Tube feed infusing via OG. GENITOURINARY: Without palpable bladder distension. Dockery catheter in place with minimal urine output-dark brown in color NEUROLOGICAL: Spont eye opening - does not track. Localizes to touch/ pain stimuli to lower extremities. Does not follow commands. No withdrawal to upper extremity pain stimuli. PSYCHIATRIC: Unable to assess given clinical condition- no evident anxiety . Diagnostic Tests Laboratory Laboratory Tests Test 08/10/17 05:55 08/12/17 03:50 08/12/17 06:03 White Blood Count 14.5 TH/MM3 (4.0-11.0) 9.3 TH/MM3 (4.0-11.0) Red Blood Count 2.48 MIL/MM3 (4.50-5.90) 2.56 MIL/MM3 (4.50-5.90) Hemoglobin 7.1 GM/DL (13.0-17.0) 7.4 GM/DL (13.0-17.0) Hematocrit 21.4 % (39.0-51.0) 21.9 % (39.0-51.0) Mean Corpuscular Volume 86.5 FL (80.0-100.0) 85.5 FL (80.0-100.0) Mean Corpuscular Hemoglobin 28.5 PG (27.0-34.0) 28.7 PG (27.0-34.0) Mean Corpuscular Hemoglobin Concent 32.9 % (32.0-36.0) 33.6 % (32.0-36.0) Red Cell Distribution Width 23.4 % (11.6-17.2) 22.8 % (11.6-17.2) Platelet Count 98 TH/MM3 (150-450) 104 TH/MM3 (150-450) Mean Platelet Volume 9.5 FL (7.0-11.0) 10.0 FL (7.0-11.0) Neutrophils (%) (Auto) 87.7 % (16.0-70.0) 82.1 % (16.0-70.0) Lymphocytes (%) (Auto) 2.7 % (9.0-44.0) 7.0 % (9.0-44.0) Monocytes (%) (Auto) 9.4 % (0.0-8.0) 9.3 % (0.0-8.0) Eosinophils (%) (Auto) 0.1 % (0.0-4.0) 1.2 % (0.0-4.0) Basophils (%) (Auto) 0.1 % (0.0-2.0) 0.4 % (0.0-2.0) Neutrophils # (Auto) 12.7 TH/MM3 (1.8-7.7) 7.6 TH/MM3 (1.8-7.7) Lymphocytes # (Auto) 0.4 TH/MM3 (1.0-4.8) 0.7 TH/MM3 (1.0-4.8) Monocytes # (Auto) 1.4 TH/MM3 (0-0.9) 0.9 TH/MM3 (0-0.9) Eosinophils # (Auto) 0.0 TH/MM3 (0-0.4) 0.1 TH/MM3 (0-0.4) Basophils # (Auto) 0.0 TH/MM3 (0-0.2) 0.0 TH/MM3 (0-0.2) CBC Comment AUTO DIFF DIFF FINAL Differential Comment AUTO DIFF CONFIRMED Platelet Estimate LOW (NORMAL) Platelet Morphology Comment NORMAL (NORMAL) Ovalocytes 1+ (NORMAL) Acanthocytes OCC (NORMAL) Keratocytes OCC (NORMAL) Blood Urea Nitrogen 43 MG/DL (7-18) 67 MG/DL (7-18) Creatinine 3.15 MG/DL (0.60-1.30) 3.93 MG/DL (0.60-1.30) Random Glucose 192 MG/DL (74-106) 192 MG/DL (74-106) Albumin 2.2 GM/DL (3.4-5.0) Calcium Level 8.0 MG/DL (8.5-10.1) 8.2 MG/DL (8.5-10.1) Phosphorus Level 3.7 MG/DL (2.5-4.9) Sodium Level 144 MEQ/L (136-145) 144 MEQ/L (136-145) Potassium Level 3.3 MEQ/L (3.5-5.1) 3.8 MEQ/L (3.5-5.1) Chloride Level 106 MEQ/L (98-107) 105 MEQ/L (98-107) Carbon Dioxide Level 25.6 MEQ/L (21.0-32.0) 27.9 MEQ/L (21.0-32.0) Anion Gap 12 MEQ/L (5-15) 11 MEQ/L (5-15) Estimat Glomerular Filtration Rate 19 ML/MIN (>89) 15 ML/MIN (>89) Blood Gas Puncture Site LT RADIAL Blood Gas Patient Temperature 98.6 Blood Gas HCO3 26 mmol/L (22-26) Blood Gas Base Excess 2.4 mmol/L (-2-2) Blood Gas Oxygen Saturation 95 % (90-100) Arterial Blood pH 7.49 (7.380-7.420) Arterial Blood Partial Pressure CO2 34 mmHg (38-42) Arterial Blood Partial Pressure O2 87 mmHg (61-120) Arterial Blood Oxygen Content 10.1 Vol % (12.0-20.0) Arterial Blood Carboxyhemoglobin 1.4 % (0-4) Arterial Blood Methemoglobin 0.9 % (0-2) Blood Gas Hemoglobin 7.4 G/DL (12.0-16.0) Oxygen Delivery Device VENT Blood Gas Ventilator Setting SEE COMMENTS Blood Gas Inspired Oxygen 50 % Result Diagram: 08/12/17 0350 08/12/17 0350 Microbiology Microbiology Date/Time Source Procedure Growth Status 08/09/17 12:11 Blood Peripheral Aerobic Blood Culture - Preliminary NO GROWTH IN 2 DAYS Resulted 08/09/17 12:11 Blood Peripheral Anaerobic Blood Culture - Preliminary NO GROWTH IN 2 DAYS Resulted 08/09/17 12:06 Blood Peripheral Aerobic Blood Culture - Preliminary NO GROWTH IN 2 DAYS Resulted 08/09/17 12:06 Blood Peripheral Anaerobic Blood Culture - Preliminary NO GROWTH IN 2 DAYS Resulted 08/09/17 10:16 Sputum Expectorated Sputum Gram Stain - Final Resulted 08/09/17 10:16 Sputum Culture - Preliminary Staphylococcus Aureus Gram Negative Xander Resulted 08/09/17 10:16 Urine Catheterized Urine Urine Culture - Final NO GROWTH IN 48 HOURS. Complete Imaging Last Impressions Chest X-Ray 08/08/17 0600 Signed Impressions: Service Date/Time: Tuesday, August 08, 2017 04:59 - CONCLUSION: Unchanged bibasilar infiltrates. Pepe Segura Jr., MD Abdomen X-Ray 08/07/17 0600 Signed Impressions: Service Date/Time: Monday, August 07, 2017 05:16 - CONCLUSION: Benign- appearing abdomen. Nasogastric tube tip is in the upper stomach. Ra Ballard MD Chest CT 08/07/17 0000 Signed Impressions: Service Date/Time: Monday, August 07, 2017 08:36 - CONCLUSION: 1. Bilateral lower lobe consolidating airspace disease. 2. Small to moderate bilateral pleural effusions. 3. Cardiomegaly. Eliud Gar MD Head CT 08/04/17 0000 Signed Impressions: Service Date/Time: July 04:37 - CONCLUSION: 1. Stable intracranial findings including bilateral subdural hematomas, intraventricular blood products, and bilateral temporal lobe hemorrhagic contusions. There is no midline shift or herniation. Ventricles are stable in size. 2. There is new fluid in the mastoid air cells and small air fluid levels bilaterally in the maxillary antra. These changes may be related to intubation. Ra Pulliam MD Lower Extremity Ultrasound 08/02/17 0000 Signed Impressions: Service Date/Time: Wednesday, August 02, 2017 10:40 - CONCLUSION: No evidence of DVT. Danyel Bear MD Renal Ultrasound 08/01/17 0000 Signed Impressions: Service Date/Time: Tuesday, August 01, 2017 14:46 - CONCLUSION: There is no hydronephrosis or stone. Bilateral pleural effusions.. Angel Brown MD FACR Shoulder X-Ray 07/31/17 0000 Signed Impressions: Service Date/Time: Monday, July 31, 2017 14:25 - CONCLUSION: No obvious fracture or dislocation. Degenerative changes. Prasanna Milan MD Cervical Spine CT 07/30/17 1202 Signed Impressions: Service Date/Time: Sunday, July 30, 2017 12:17 - CONCLUSION: 1. Negative for fracture. 2. Degenerative changes consisting of uncinate ridging with neural foramen encroachment without radiographically significant spinal stenosis. 3. Bilateral moderate sized pleural effusions seen on the lower slices through the upper lungs lungs. Angel Brown MD FACR Procedures 07/30/2017: Intubation 07/30/2017: ICP monitor placed . Assessment and Plan Disease Oriented Problem List: (1) Congestive heart failure (2) Anemia (3) Acute kidney insufficiency (4) Respiratory failure (5) Hypertensive emergency (6) Intracranial bleed (7) Edema due to congestive heart failure (8) Major neurocognitive disorder as late effect of traumatic brain injury without behavioral disturbance Symptom Scale: (1) Pain (2) Encephalopathy (3) Dyspnea Pertinent Non-Medical Issues Psychosocial: Patient is originally from [place]. He dated his (Kristin ) in high school, and they have now been for approximately 62 years. 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 Together they have 4 adult children, 10 grandchildren and 5 great-grandchildren. Spiritual: Episcopalian thanh Legal: Unclear. Per [place] statutes, in the absence of written advance directives healthcare proxy decision making would fall to the patient's . Patient also has 4 adult children. Danielle and Darryn who live locally have verbally indicated that Danielle is the healthcare surrogate decision maker. Review healthcare power of corporate associate attorney documentation which names as first, daughter Danielle is secondary.copies sent to HIM. Ethical issues impacting care: No known ethical issues impacting care. . Important Contacts Kristin Alonzo, : [phone] Danielle Adkins, daughter: [phone] Darryn Alonzo, son: [phone] . Prognosis Patient is an 82-year-old male who has suffered severe brain trauma which is complicated by multiple comorbid conditions. Prognosis is very poor, and the patient may not survive this hospitalization. . Code Status: No Code Plan * DNR * Decision making: Danielle and Darryn who live locally have verbally indicated that Danielle is the healthcare surrogate decision maker. However, copies of written advanced directives, designation of healthcare surrogate form, have not yet been provided by the family. Per [place] statutes, in the absence of written advanced directives healthcare proxy decision making falls to the patient's . If she is unable to fulfill this role, then healthcare proxy decision making. The majority of the patient's 4 adult children.(Prior interactions with have noted that she appears to have cognitive impairments and may not be able to fully participate in decision-making) Review healthcare power of corporate associate attorney documentation which names as first, daughter Danielle is secondary.copies sent to HIM. does appear to have mild cognitive impairments, limited to poor short term memory. * Met w family at length, they have indicated pt would NOT want trach/PEG. They do NOT wish to proceed w trach/PEG. Plan for withdrawal of mech vent/ transition to comfort TODAY, around 1130 am. Exhibits placed in chart. anticipatory guidance has been provided to family. Yesterday family requested ink or fingerprinting assistance to obtain fingerprints to make memory items from pt fingerprints-- obtained fingerprint memory kit from NICU, left at bedside for family. Awaiting family arrival /signed exhibit to enter comfort orders for pre withdrawal, withdrawal and post withdrawal. 1130- daughter Dee and signed withdrawal exhibits. Comfort orders entered for withdrawal, post withdrawal * Symptom management: comfort orders for withdrawal to be entered upon family arrival = Encephalopathy: Patient remains encephalopathic status post subdural and subarachnoid hemorrhages. He has been off sedation several days. Opens eyes spontaneously; not following commands. Follow-up CT brain on 08/04/17 revealed stable intracranial findings including bilateral subdural hematomas, intraventricular blood products and bilateral temporal lobe hemorrhagic contusions. No midline shift or herniation. Ventricle size stable. EEG= mild to moderate encephalopathy Critical care stating patient's prognosis is very poor with minimal likelihood of any meaningful neurological recovery. = Dyspnea: Patient remains intubated on mechanical ventilation. Follow-up chest x-ray on 08/08/17 showed unchanged bibasilar infiltrates. yesterday Requiring 70% FiO2, today on 40% CPAP, mildly tachypneic * Palliative care will follow this patient throughout his hospitalization to establish trust, assist with symptom management and clarification of medical treatment goals . Attestation To help prompt me to consider important information that might be impacting today's encounter and assessment, information from prior notes written by myself or my colleagues may have been "brought forward" into today's note. My signature on this note, however, is an attestation that I personally performed the exam, history, and/or decision-making noted today, and, unless otherwise indicated, the interactions with patient, family, and staff as well as the review of records all occurred today. I also attest that the listed assessment and stated plan reflect my best clinical judgment today based on the combination of historical information, prior notes, and today's exam/ interactions. When time spent is documented, it refers only to time spent today by the signer, or if indicated, combined time spent today by collaborating physician/nurse practitioner. Danielle Martinez Aug 12, 2017 10:18
[2017-08-12] MEDS ORDERED: REMOVE OLD CATAPRES (CLONIDINE) PATCH T-DERMAL SCH (11:00)
[2017-08-12] MEDS ORDERED: REMOVE OLD PATCH T-DERMAL SCH (11:00)
[2017-08-12] MEDS ORDERED: HYDROmorphone HCL PF 2 MG/ML VIAL IV PUSH ONE ×2 (11:30→11:45)
[2017-08-12] MEDS ORDERED: HYOSCYAMINE 0.5 MG/ML AMP IV PUSH ONE (11:30)
[2017-08-12] MEDS ORDERED: LORazepam 2 MG/ML VIAL IV PUSH ONE ×2 (11:30→11:45)
[2017-08-12] MEDS ORDERED: LORazepam 2 MG/ML VIAL IV PUSH SCH (12:00)
[2017-08-12] MEDS ORDERED: HYOSCYAMINE 0.5 MG/ML AMP IV PUSH PRN (12:00)
[2017-08-12] MEDS ORDERED: HYDROmorphone HCL PF 2 MG/ML VIAL IV PUSH PRN (12:00)
[2017-08-12] MEDS ORDERED: LORazepam 2 MG/ML VIAL IV PUSH PRN ×3 (12:00)
[2017-08-12] MEDS: HYDROmorphone HCL PF 2 MG/ML VIAL IV PUSH PRN ×2 (13:47→15:32)
--- NOTE | 2017-08-12 16:41 | HHI.CCPN ---
Subjective Brief History CAMPO: This is a 82-year-old gentleman who fell backwards off of a ladder with brief loss of consciousness and brief round of CPR at the scene was brought in as a level II trauma alert intubated in the trauma bay and upgraded to level I. He was found to have subdural and subarachnoid hemorrhages and was given 2 units of platelets for platelet dysfunction secondary to Plavix use. Final injuries: Right temporal intraparenchymal hemorrhage with slight subdural component Left frontoparietal and temporo-occipital subdural hematoma about 1 cm thick Patient has complex history of CHF,coronary artery disease, diabetes mellitus and chronic renal insufficiency requiring dialysis in 2013. Since then patient has been off dialysis but at this point creatinine is rising. 24 Hour Review/Hospital Course 07/[address] appears to be worse today with slight increase in the size of his bleeds Is currently on a Cardene drip to maintain systolic blood pressure less than 160 , his beta stacie has been held for a heart rate in the mid 50s 08/01/2017 Patient is intubated ventilated on propofol and fentanyl ICP measurements about 5-8 mmHg Remains sedated not moving any extremities at this time Hemodynamically patient is stable with hypertension. Patient is noted to be hypertensive from home and some of medications have been reinstituted In addition to Lopressor and hydralazine patient is currently on Cardene drip in order to keep systolic blood pressure under 160 mmHg Patient will need Catapres patch in order to wean off Cardene In face of increased creatinine and BUN patient did not have IV contrast to assess the chest and abdomen but externally there are no signs of trauma to either Renal function as above noted is impaired with rising creatinine and BUN. Nephrology consult from Dr. Chavez is greatly appreciated Patient will be managed expectantly and as the neurologic function improves sedation will be gradually weaned It should be noted that severe brain trauma in this age group with related medical problems survival is very low and patient is a high mortality probably in the range of 80-90%. 08/02/2017 Patient remains intubated ventilated and sedated with all neuroprotective measures Hemodynamically patient is stable and hypertensive on several antihypertensive drugs including Cardene noted to keep systolic blood pressure under 160 mmHg Bilateral breath sounds remains ventilatory dependent in the face of decreased level of consciousness On assist control ventilation 40% FiO2 Abdomen soft nontender will start on enteral feedings Nephrology help is greatly appreciated in the care of this patient with marginal renal function and he may need intermittent dialysis should his fluid status worsened and he becomes fluid overloaded 08/03/17 severe TBI on elderly patient with multiple medical issues PRINCE superimposed on chronic renal failure compensated metabolic acidosis secondary due to renal failure diuresis initiated by rehabilitation worker moene for BP control 08/04/2018 Patient this point is off sedation however there is no appreciable neurologic function except for some movement of upper extremities [place] Coma Scale 4 Hemodynamically patient is stable however quite hypertensive on multiple medications and even on Cardene drip difficulty controlling systolic blood pressure Cardiology help is greatly appreciated. Cardiac function intact and no signs of contusion or acute injury to the heart Bilateral breath sounds decreased over the right base were patient has a infiltrate in the right lower lobe Remains on assist control ventilation fully supported not breathing over the respirator but with good PO2 FiO2 gradient Abdomen is soft and enteral feeds of tolerated Renal function is gradually deteriorating and patient had underlying renal insufficiency prior to this event. He was on dialysis few years ago in an unrelated episode. At this point in discussions with family there is some ambiguity about which way to go. This patient has 90% mortality in 100% morbidity and most likely in the best case scenario patient will require tracheostomy feeding tube and will remain bedridden permanently 08/05/2017 PTD: 6 Mechanically ventilated and sedated Patient remains hypertensive on max Cardene. Increased clonidine patch and added Norvasc. Will have meeting with family to discuss plan of care and decision on whether to progress to dialysis. 08/06/2017 PTD: 7 Patient remains mechanically ventilated and sedated. Remains hypertensive despite numerous agents. Currently on second session of dialysis. 08/07/17 Vomited overnight and likely aspirated Respiratory distress with increased Fio2 requirements overnight Maxed out on Cardene and Cardizem gtts Getting dialysis during visit 08/08/2017 No change in neurologic status patient remains unconscious withdraws to pain [place] Coma Scale 4 Hemodynamically patient is intact however hypertension hard to control Remains on Cardene drip and a slew of antihypertensives Several rounds of V. tach in last 48 hours which resolved spontaneously Bilateral breath sounds with good PO2 FiO2 gradient and improving pulmonary function Abdomen soft Patient aspirated the other day and therefore will be kept off enteral feeds for the time being Ileus due to multiple medications including fentanyl Patient has no reasonable chance of meaningful recovery Family is not sure about tracheostomy and PEG Prognosis poor 08/09 multi organ failure severe HTN on multiple agents-including cardizem/cardene start to move extremities off sedation NG 100cc/12 hrs ,diarrhea staph + BAL on vanco 08/10/2018 Patient is only a small dose fentanyl however his [place] Coma Scale remains around 5 Somewhat he stated that patient open his eyes but I have not had a chance to see this Patient withdraws to pain occasionally This is consistent with severe hypoxic injury and cerebral anoxia Hemodynamically patient is stable however requiring very high doses of antihypertensives including Cardene drip which is maximized at this time The only other options are Nipride and Arfonad but in patients with head injury and perceived intracranial hypertension but this is discouraged Bilateral breath sounds remains ventilatory dependent with good PO2 FiO2 gradient Bilateral basal infiltrates right more than left Abdomen soft enteral feeds tolerated At this point patient should have a tracheostomy and PEG if we proceed with further care however family is debating supportive care option at this time in face of very poor prognosis Palliative care consult and help is greatly appreciated 08/11/2017 Patient with severe brain injury and no functional neurologic recovery According to the palliative care and patient's family they would like to withdraw care in the next 24-40 hours with family comes into town Patient will be withdrawn from care according to the family's wishes Remains intubated ventilated No sedation and no neurologic activity [place] Coma Scale remains 3-4 just for the fact that patient will occasionally move foot Expert care from electronic pagination system operator team, palliative care, neurosurgery and other specialists is greatly appreciated 08/12/17 After meeting with Palliative care family requests to proceed with comfort measures and withdraw life sustaining measures Patient will be made comfortable and allow to pass peacefully (Inna Romero) Objective Vital Signs Date Time Temp Pulse Resp B/P (MAP) Pulse Ox O2 Delivery O2 Flow Rate FiO2 08/12/17 14:00 105 08/12/17 12:00 50 08/12/17 12:00 14 120/60 (80) 99 08/12/17 08:00 98.8 Intake and Output 08/12/17 08/12/17 08/13/17 08:00 16:00 00:00 Intake Total 787 ml Output Total 175 ml Balance 612 ml (Inna RomeroP) Result Diagram: 08/12/17 0350 08/12/17 0350 Other Results Laboratory Tests Test 08/12/17 06:03 Blood Gas Puncture Site LT RADIAL Blood Gas Patient Temperature 98.6 Blood Gas HCO3 26 mmol/L (22-26) Blood Gas Base Excess 2.4 mmol/L (-2-2) Blood Gas Oxygen Saturation 95 % (90-100) Arterial Blood pH 7.49 (7.380-7.420) Arterial Blood Partial Pressure CO2 34 mmHg (38-42) Arterial Blood Partial Pressure O2 87 mmHg (61-120) Arterial Blood Oxygen Content 10.1 Vol % (12.0-20.0) Arterial Blood Carboxyhemoglobin 1.4 % (0-4) Arterial Blood Methemoglobin 0.9 % (0-2) Blood Gas Hemoglobin 7.4 G/DL (12.0-16.0) Oxygen Delivery Device VENT Blood Gas Ventilator Setting SEE COMMENTS Blood Gas Inspired Oxygen 50 % Objective Remarks GENERAL: 82-year-old elderly male orotracheally intubated and mechanically ventilated. SKIN: Warm and dry. HEAD: Atraumatic. Normocephalic. EYES: Pupils equal round reactive to light. ENT: No nasal bleeding or discharge Orotracheally intubated. NECK: Trachea midline. CARDIOVASCULAR: Atrial fibrillation on monitor, controlled rate. RESPIRATORY: Coarse rhonchi auscultated throughout lung moreno, diminished sounds in bases. Breath sounds equal bilaterally. GASTROINTESTINAL: Abdomen soft, non-distended. + BS MUSCULOSKELETAL: No obvious deformities. + perfused. NEUROLOGICAL: Opens eyes spontaneously, does not follow commands. (Inna Romero) Vascular Central Line Catheter Side: Right Location: Internal, Jugular (Vas cath) (Inna Romero) Assessment and Plan Assessment: (1) Congestive heart failure ICD Code: I50.9 - Heart failure, unspecified Status: Chronic (2) Anemia ICD Code: D64.9 - Anemia, unspecified Status: Chronic (3) Acute kidney insufficiency ICD Code: N28.9 - Disorder of kidney and ureter, unspecified Status: Chronic (4) Respiratory failure ICD Code: J96.90 - Respiratory failure, unspecified, unspecified whether with hypoxia or hypercapnia Status: Acute (5) CKD (chronic kidney disease) stage 3, GFR 30-59 ml/min ICD Code: N18.3 - Chronic kidney disease, stage 3 (moderate) Status: Chronic (6) Unresponsive ICD Code: R41.89 - Other symptoms and signs involving cognitive functions and awareness Status: Acute (7) Intracranial bleed ICD Code: I62.9 - Nontraumatic intracranial hemorrhage, unspecified Status: Acute (8) Hypertensive emergency ICD Code: I16.1 - Hypertensive emergency Status: Acute (9) Edema due to congestive heart failure ICD Code: I50.9 - Heart failure, unspecified Status: Chronic (10) Dyspnea ICD Code: R06.00 - Dyspnea, unspecified Status: Acute (11) Traumatic brain injury ICD Code: S06.9X9A - Unspecified intracranial injury with loss of consciousness of unspecified duration, initial encounter Status: Acute (12) Major neurocognitive disorder as late effect of traumatic brain injury without behavioral disturbance ICD Code: S06.9X9S - Unspecified intracranial injury with loss of consciousness of unspecified duration, sequela; F02.80 - Dementia in other diseases classified elsewhere without behavioral disturbance Status: Acute Plan CAMPO: 82-year-old male who sustained a fall. He fell off a ladder approximately 10 feet, striking his head. + LOC. Short period of CPR and then the patient woke up, confused with unequal pupils. GCS 13. Systolic blood pressure = 200. Patient is on Plavix. INJURIES: Temporal SAH RIGHT temporal SDH Aspiration PMHx: CHF, HTN, DM, CRF, HLD, PVD, Perforated appendix- sepsis (2 years ago) Procedures: 07/30: Intubated 07/30 - 08/05 [place] NEUROLOGICAL: -Temporal SAH, RIGHT temporal SDH Neurosurgery consulted Serial neuro checks 08/04: CT Brain - stable 08/01: CT brain - stable 07/31: CT brain - increase L SDH. Increase R temporal hemorrhage 07/30 - 08/05: ICP bolt placement HOB elevated 30 degrees Off sedation for several days Does not follow commands, opens eyes spontaneously CARDIOVASCULAR: Cardiology consulted Patient with history of CHF, HTN, HLD, PVD 07/31: Echo- EF 50-55%, mild pulm HTN Atrial fibrillation, rate controlled RESPIRATORY: Critical care electronic pagination system operator consulted 07/30: Intubated IV Abx: Maxipime Vent bundle Duonebs Palliative care consulted to assist family with goals of care Family wishes to withdraw all life supportive measures and make the patient comfortable GASTROINTESTINAL: +BM Bowel regimen RENAL: Real Estate Paralegal consulted Patient with history of chronic renal failure Strict I&O LASIX 80 IV q 8H. Diuril 500mg BID - per nephrology Hemodialysis per nephrology Hematuria via [place] catheter ENDOCRINE: Patient with history of DM SSI q 6h HEMATOLOGY: Patient with a history of chronic anemia Does not meet transfusion trigger this time 08/02: US Lower extremity study - NEGATIVE for DVT ID: IV Abx: Maxipime LINES: 07/30: ETT 07/30: OGT 08/05: R IJ vas cath 07/30: [place] PROPHYLAXIS: VAP - protocol in place GI - Pepcid 10 mg BID DVT - Mechanical VTE with SCDs. SQ heparin SKIN: Warm and dry Generalized edema Plan of care discussed with RN at bedside. Family requested withdrawal of life-sustaining measures today after discussion with palliative care. Patient will be made comfortable and allowed to pass peacefully. (Inna Romero) Remarks Patient seen and examined to nurse practitioner, patient status is unchanged family made palliative care level decided at this stage to proceed with comfort measures (Rebeca Vines MD) Problem Qualifiers (1) Congestive heart failure: Qualified Codes: I50.9 - Heart failure, unspecified (2) Anemia: Qualified Codes: D64.9 - Anemia, unspecified (3) Respiratory failure: Qualified Codes: J96.00 - Acute respiratory failure, unspecified whether with hypoxia or hypercapnia (4) Dyspnea: Qualified Codes: R06.00 - Dyspnea, unspecified (5) Traumatic brain injury: Inna Romero Aug 12, 2017 16:40 Rebeca Vines MD Aug 15, 2017 11:57
--- NOTE | 2017-08-13 09:59 | HHI.DS ---
Summary Note Date of : Aug 12, 2017 Time Of : 1655 Admission Date Jul 30, 2017 at 12:27 Admitting Diagnosis fall, altered mental status, head bleed, hypertensive emergency Diagnosis at Time of : (1) Traumatic brain injury ICD Code: S06.9X9A - Unspecified intracranial injury with loss of consciousness of unspecified duration, initial encounter (2) CKD (chronic kidney disease) stage 3, GFR 30-59 ml/min ICD Code: N18.3 - Chronic kidney disease, stage 3 (moderate) (3) HTN (hypertension) ICD Code: I10 - Essential (primary) hypertension (4) Major neurocognitive disorder as late effect of traumatic brain injury without behavioral disturbance ICD Code: S06.9X9S - Unspecified intracranial injury with loss of consciousness of unspecified duration, sequela; F02.80 - Dementia in other diseases classified elsewhere without behavioral disturbance Brief History This is an 82-year-old gentleman who fell backwards off of a ladder approximately 10 feet. He underwent a brief round of CPR but was found to be spontaneously breathing so it was stopped patient was brought in the trauma bay hypertensive and confused he was intubated in the trauma bay. He had unequal pupils and a coffee-ground emesis prior to intubation. He was upgraded to a level I trauma alert and full trauma workup showed a right subarachnoid hemorrhage as well as subdural hematoma. He was given 2 units of platelets that for his platelet insufficiency due to Plavix CBC/BMP: 08/12/17 0350 08/12/17 0350 Significant Findings Laboratory Tests Test 08/12/17 03:50 08/12/17 06:03 Red Blood Count 2.56 MIL/MM3 (4.50-5.90) Hemoglobin 7.4 GM/DL (13.0-17.0) Hematocrit 21.9 % (39.0-51.0) Red Cell Distribution Width 22.8 % (11.6-17.2) Platelet Count 104 TH/MM3 (150-450) Neutrophils (%) (Auto) 82.1 % (16.0-70.0) Lymphocytes (%) (Auto) 7.0 % (9.0-44.0) Monocytes (%) (Auto) 9.3 % (0.0-8.0) Lymphocytes # (Auto) 0.7 TH/MM3 (1.0-4.8) Blood Urea Nitrogen 67 MG/DL (7-18) Creatinine 3.93 MG/DL (0.60-1.30) Random Glucose 192 MG/DL (74-106) Calcium Level 8.2 MG/DL (8.5-10.1) Estimat Glomerular Filtration Rate 15 ML/MIN (>89) Blood Gas Base Excess 2.4 mmol/L (-2-2) Arterial Blood pH 7.49 (7.380-7.420) Arterial Blood Partial Pressure CO2 34 mmHg (38-42) Arterial Blood Oxygen Content 10.1 Vol % (12.0-20.0) Blood Gas Hemoglobin 7.4 G/DL (12.0-16.0) Imaging Last Impressions Chest X-Ray 08/06/17 0600 Signed Impressions: Service Date/Time: Sunday, August 06, 2017 02:56 - CONCLUSION: 1. Slightly improved bibasilar consolidation and small effusions. 2. No change mild cardiomegaly. Ra Ballard MD Head CT 08/04/17 0000 Signed Impressions: Service Date/Time: July 04:37 - CONCLUSION: 1. Stable intracranial findings including bilateral subdural hematomas, intraventricular blood products, and bilateral temporal lobe hemorrhagic contusions. There is no midline shift or herniation. Ventricles are stable in size. 2. There is new fluid in the mastoid air cells and small air fluid levels bilaterally in the maxillary antra. These changes may be related to intubation. Ra Pulliam MD Lower Extremity Ultrasound 08/02/17 0000 Signed Impressions: Service Date/Time: Wednesday, August 02, 2017 10:40 - CONCLUSION: No evidence of DVT. Danyel Bear MD Renal Ultrasound 08/01/17 0000 Signed Impressions: Service Date/Time: Tuesday, August 01, 2017 14:46 - CONCLUSION: There is no hydronephrosis or stone. Bilateral pleural effusions.. Angel Brown MD FACR Shoulder X-Ray 07/31/17 0000 Signed Impressions: Service Date/Time: Monday, July 31, 2017 14:25 - CONCLUSION: No obvious fracture or dislocation. Degenerative changes. Prasanna Milan MD Cervical Spine CT 07/30/17 1202 Signed Impressions: Service Date/Time: Sunday, July 30, 2017 12:17 - CONCLUSION: 1. Negative for fracture. 2. Degenerative changes consisting of uncinate ridging with neural foramen encroachment without radiographically significant spinal stenosis. 3. Bilateral moderate sized pleural effusions seen on the lower slices through the upper lungs lungs. Angel Brown MD FACR Hospital Course [place]: Fell off a ladder at approx 10 feet, striking his head. + LOC. Short period of CPR and patient woke up confused and with unequal pupils, GCS =13. BP = 200 systolic. Pt is on Plavix. INJURIES: Temporal SAH RIGHT temporal SDH ?Aspiration PMHx: CHF, HTN, DM, CRF, HLD, PVD, Perforated appendix- sepsis (2 years ago) 07/30: Intubated 07/30-08/05: [place] 08/05: DIALYSIS BEGIN Temporal SAH, RIGHT temporal SDH Neurosurgery consulted 07/30-08/05: [place] Supportive care Off sedation for several days Not following commands ?Pre-hospital aspiration, respiratory failure Supportive care Vent bundle Critical care consulted Palliative care consulted Family requested to withdraw life sustaining measures and make patient comfortable DNR Renal failure Nephrology consulted 08/07: RIJ vascath placed Patient required hemodialysis Family stated patient would not want to be on dialysis for intermediate teacher Atrial Fib, uncontrolled HTN Cardiology consulted Was maxed out on Cardizem and Cardene gtts Hydralazine PRN Hytrin Lopressor IV Clonidine patch Norvasc Family requested life sustaining measures be withdrawn and to allow patient to pass peacefully. Patient withdrawn from life support and pronounced at 1655 by RN, family at bedside. Inna Romero Aug 13, 2017 09:59
--- NOTE | 2017-08-15 08:19 | PD.NP.DS ---
Discharge Summary Reason for Referral: The patient is a 82 year old unknown handed male status post traumatic brain injury secondary to a fall from a ladder sustained on 07/30/2017. Work-up revealed right SAH and SDH. Head CT worsened in day 2. His ICPs have been around 8. He is referred for baseline neurobehavioral status examination per trauma protocol to assess cognitive, behavioral and emotional aspects of the injury and to provide treatment recommendations. He remained in the ICU for 13 days. There were no neurobehavioral issues during his stay. His family elected to withdraw life sustaining efforts and the patient passed. Past Medical History: Please refer to the patient's history and physical for information concerning the patient's past medical, surgical, and psychiatric histories. Education/Learning Hx: The patient completed high school years of education. There is no report of learning difficulties, grade repetitions or behavioral difficulties. The patient was retired at the time of his injury. The patient lived in [place], [place]. Premorbid Cognitive, Emotional and Behavioral Status: Tenuous. The patient has high school years of education and is retired. The patient has no prior psychiatric difficulties, as described above. Substance abuse history is unremarkable. Behavioral Reactions of Patient and Family/Support System: Stable. The patient s family is experiencing ongoing issues of adjustment given the nature of the injury, and this aspect of recovery will require ongoing monitoring. Emotional/Behavioral Status of Patient and Family/Support System: Stable. Pertinent issues, if appropriate to this patients clinical care, are described in detail above. Treatment Interventions: During the course of their acute care stay, this patient and their family/ support system were provided information concerning the neuropsychological aspects of the injury, education regarding course of recovery, and psychological support in the form of counseling with the person served and the family/support system as documented in the neuropsychology service progress notes, as deemed clinically appropriate. Current, Cognitive, Emotional and Behavioral Status: NA. The patient . Impression at Discharge: N/A. The above listed diagnoses are supported by the following clinical criteria: N/ A. Status of Family/Support System Adjustment: Deferred. The patient from his injuries. Post Acute Recommendations: N/A. Thank you for the opportunity to assist in this patients care. Micah Sotelo, Ph.D., ABPP Board Certified in Clinical Neuropsychology [place] [employer] [place] Licensed Psychologist #[id number] Micah Sotelo PhD Aug 15, 2017 08:19
== END 2017-08-12 20:45 | disposition expired | DRG 25 ==
LOC: NEPI 11:52 → EDBD 12:27 → NEDA 12:27 → N03B 12:54
PROVIDERS: ADMIT Surgery; ATTEND Surgery
PROC: 30233R1 Transfusion of Nonautologous Platelets into Peripheral Vein, Percutaneous Approach (ICD-10-PCS; principal; 2017-07-30)
PROC: 5A1955Z Respiratory Ventilation, Greater than 96 Consecutive Hours (ICD-10-PCS; 2017-07-30)
PROC: 0BH17EZ Insertion of Endotracheal Airway into Trachea, Via Natural or Artificial Opening (ICD-10-PCS; 2017-07-30)
PROC: 0T9B70Z Drainage of Bladder with Drainage Device, Via Natural or Artificial Opening (ICD-10-PCS; 2017-07-30)
PROC: 00H032Z Insertion of Monitoring Device into Brain, Percutaneous Approach (ICD-10-PCS; 2017-07-31)
PROC: 30233N1 Transfusion of Nonautologous Red Blood Cells into Peripheral Vein, Percutaneous Approach (ICD-10-PCS; 2017-07-31)
PROC: 4A103BD Monitoring of Intracranial Pressure, Percutaneous Approach (ICD-10-PCS; 2017-07-31)
PROC: 05HM33Z Insertion of Infusion Device into Right Internal Jugular Vein, Percutaneous Approach (ICD-10-PCS; 2017-08-05)
PROC: 5A1D70Z Performance of Urinary Filtration, Intermittent, Less than 6 Hours Per Day (ICD-10-PCS; 2017-08-05)
PROC: 05H633Z Insertion of Infusion Device into Left Subclavian Vein, Percutaneous Approach (ICD-10-PCS; 2017-08-07)
DX: S06.5X9A Traumatic subdural hemorrhage with loss of consciousness of unspecified duration, initial encounter (principal); J96.01 Acute respiratory failure with hypoxia; R65.20 Severe sepsis without septic shock; N17.9 Acute kidney failure, unspecified; I47.2 Ventricular tachycardia; A41.9 Sepsis, unspecified organism; G93.1 Anoxic brain damage, not elsewhere classified; J18.9 Pneumonia, unspecified organism; N18.3 Chronic kidney disease, stage 3 (moderate); I13.0 Hypertensive heart and chronic kidney disease with heart failure and stage 1 through stage 4 chronic kidney disease, or unspecified chronic kidney disease; E87.2 Acidosis; Z99.11 Dependence on respirator [ventilator] status; E87.0 Hyperosmolality and hypernatremia; E87.1 Hypo-osmolality and hyponatremia; I16.1 Hypertensive emergency; N39.0 Urinary tract infection, site not specified; K56.7 Ileus, unspecified; D69.1 Qualitative platelet defects; I50.9 Heart failure, unspecified; E11.22 Type 2 diabetes mellitus with diabetic chronic kidney disease; E11.51 Type 2 diabetes mellitus with diabetic peripheral angiopathy without gangrene; S06.6X9A Traumatic subarachnoid hemorrhage with loss of consciousness of unspecified duration, initial encounter; T45.525A Adverse effect of antithrombotic drugs, initial encounter; S06.2X9A Diffuse traumatic brain injury with loss of consciousness of unspecified duration, initial encounter; W11.XXXA Fall on and from ladder, initial encounter; Y93.9 Activity, unspecified; Y92.9 Unspecified place or not applicable; Y99.9 Unspecified external cause status; E87.5 Hyperkalemia; I25.10 Atherosclerotic heart disease of native coronary artery without angina pectoris; E88.09 Other disorders of plasma-protein metabolism, not elsewhere classified; E83.51 Hypocalcemia; D64.9 Anemia, unspecified; H11.31 Conjunctival hemorrhage, right eye; F01.50 Vascular dementia, unspecified severity, without behavioral disturbance, psychotic disturbance, mood disturbance, and anxiety; I49.3 Ventricular premature depolarization; I27.20 Pulmonary hypertension, unspecified; I34.0 Nonrheumatic mitral (valve) insufficiency; Z51.5 Encounter for palliative care; N40.0 Benign prostatic hyperplasia without lower urinary tract symptoms; E78.5 Hyperlipidemia, unspecified; K21.9 Gastro-esophageal reflux disease without esophagitis; Z87.891 Personal history of nicotine dependence; L98.8 Other specified disorders of the skin and subcutaneous tissue; M10.9 Gout, unspecified; Z66 Do not resuscitate; I48.91 Unspecified atrial fibrillation; T17.918A Gastric contents in respiratory tract, part unspecified causing other injury, initial encounter; G25.0 Essential tremor; N50.89 Other specified disorders of the male genital organs; D69.6 Thrombocytopenia, unspecified; Y95 Nosocomial condition
CPT/HCPCS: 31500; 36430; 36556; 36600; 36620; 61210; 70450; 71045; 71250; 72125; 73030; 74018; 76775; 76937; 80048; 80053; 80069; 80074; 81001; 82306; 82550; 82805; 82948; 83540; 83550; 83735; 83880; 83883; 84100; 84132; 84165; 85007; 85014; 85018; 85025; 85027; 85379; 85576; 85610; 85730; 86160; 86335; 86403; 86803; 86850; 86900; 86901; 86920; 87040; 87070; 87077; 87086; 87147; 87186; 87205; 87340; 87641; 90471; 90715; 90935; 93005; 93306; 93970; 94002; 94003; 94640; 94664; 94770; 95819; 96361; 96365; 96374; 96375; 99291; G0390; J0330; J0360; J0692; J1170; J1205; J1580; J1644; J1815; J1940; J1953; J1980; J2060; J2150; J2212; J2405; J2765; J3010; J3370; J3411; J3480; J7030; J7040; J7050; J7070; P9016; P9035; P9047